=== PATIENT | female | born 1955 | race Caucasian/White ===

== ENCOUNTER 2016-11-24 13:53 | Inpatient (IN) | payer OTHER ==
[~2016-11-24] VITALS: Ht 157.5 cm; Wt 68.0 kg
[~2016-11-24 13:53] MED LIST: ADVAIR; ADVAIR DISKUS 21 DSK IH; ALBUTEROL; ALBUTEROL 3 ML3 ML IH; AMBIEN5 MG PO; APIDRA100 U/ML SUBQ; ASPIRIN81 M1 PO; ATIVAN1 M1 PO; ATROVENT 00.5 MG/3 M INH; AZITHROMYCIN500 MG PO; BACLOFEN20 MG PO; COLACE100 M1 PO; DALIRESP500 MCG PO; DUONEB 3 MG/3 ML3 ML IH; ERY-TAB250 MG PO; FLONASE; FLONASE NASAL50 MCG NS; GLUCOPHAGE1000 MG PO; GLUCOTROL5 MG PO; GUAIFEN/CODEIN120 ML PO; IPRATROPIUM 2.2.5 ML IH; LANTUS SOLOS100 U/ML SC; LANTUS SOLOS100 U/ML SUBQ; LEVAQUIN500 MG PO; LEVAQUIN750 MG PO; MOTRIN800 MG PO; NORCO 10/325 MG1 TAB PO; NORCO 5/325 MG1 TAB PO; NOVOLIN R 100 UNIT SUBQ; PERCOCET 5/3251 TAB PO; PRADAXA150 MG PO; PREDNISONE; PREDNISONE10 MG PO; PREDNISONE20 M1 PO; PREDNISONE20 MG PO; PREDNISONE5 MG PO; PREDNISONE50 MG PO; PROAIR; PROAIR HFA0.09 MG/Ac IH; PROTONIX40 MG PO; PROVENTIL HFA M18 GM INH; ROBITUSSIN/CODEI5 ML PO; SINGULAIR; SINGULAIR10 MG PO; SPIRIVA MD18 MCG/CAP INH; SPIRIVA18 MCG; SYMBICORT1 AE1 IH; VENTOLIN H0.09 MG/Ac IH; VICODIN 5/500 M1 TAB PO; ZITHROMAX TRI-500 MG PO; ZITHROMAX Z-PA250 MG PO; ZITHROMAX200 MG/5 M PO; ZITHROMAX250 MG PO; ZITHROMAX500 MG PO
--- NOTE | 2016-11-24 13:54 | NUR ---
EKG completed by EMT in triage room.
[2016-11-24 13:56] VITALS: BP 161/86
--- NOTE | 2016-11-24 14:00 | NUR ---
Patient ambulated to bed 1 with family. RN evaluating patient at bedside.
--- NOTE | 2016-11-24 14:01 | NUR ---
Dr. Duran evaluating patient at bedside.
[2016-11-24] MEDS ORDERED: ALBUTEROL SULFATE/IPRATROPIU 3 ML SOL IH ONE ×2 (14:05→14:35)
[2016-11-24] MEDS ORDERED: methylPREDNISolone SS 125 MG in WATER STERILE 2 ML IM ONE (14:05)
[2016-11-24] MEDS ORDERED: NITROGLYCERIN 0.4 MG TAB SL ONE (14:10)
--- NOTE | 2016-11-24 14:12 | NUR ---
Breathing treatment administered at bedside by respiratory therapist.
--- NOTE | 2016-11-24 14:19 | NUR ---
Dr. Duran re-evaluating patient at bedside.
--- NOTE | 2016-11-24 14:23 | NUR ---
BROUGHT IN BY DAUGHTER DUE TO SOB X1 WEEK AND CHEST PAIN AND WHEEZING STARTED LAST NIGHT , PT AAO, NOTED WITH COUGHING, PT TAKING HHN AT HOME AND REST OF HER MEDICATION, DENIES N/VD. NOTED WITH LABORED BREATHING, DAUGHTER AT BEDSIDE
--- NOTE | 2016-11-24 14:23 | NUR ---
HHN FINISHED AT THIS TIME
[2016-11-24] MEDS ORDERED: methylPREDNISolone SS 125 MG in WATER STERILE 2 ML IV ONE (14:25)
--- NOTE | 2016-11-24 14:41 | NUR ---
Secondary breathing treatment administered at bedside by respiratory therapist.
--- NOTE | 2016-11-24 14:43 | NUR ---
GETTING HHN AT THIS TIME, PT AAO, STILL WITH LABORED BREATHING
--- NOTE | 2016-11-24 15:00 | NUR ---
WILL INFORM PT WANTS TO HAVE PAIN MEDS
--- NOTE | 2016-11-24 15:00 | NUR ---
XRAY AT BEDSIDE
[2016-11-24] MEDS ORDERED: LEVOFLOXACIN 750 MG/D5W PREMIX 150 ML IV ONE (15:10)
[2016-11-24] MEDS ORDERED: MORPHINE SULFATE 2 MG/ML SYR IVP ONE (15:30)
[2016-11-24] MEDS ORDERED: NACL 0.9% 1,000 ML IV ONE (15:30)
--- NOTE | 2016-11-24 16:08 | NUR ---
REPORT GIVEN TO TELE SPOKE TO BEBETO
[2016-11-24 16:15] VITALS: BP 96/53
--- NOTE | 2016-11-24 16:15 | NUR ---
ADMITTED PATIENT FROM ER WITH CHIEF COMPLAINING OF SOB AND CHEST PAIN. PATIENT APPEARED TO BE CALM, AWAKE AND RESTING WELL. AAOX4. 98% ON O2 3L NC. VSS WITH NO FEVER NOTED. NO SIGN OF SOB OR RESPIRATORY DISTRESS NOTED. INITIAL ASSESSMENT DONE. SKIN INTACT. PATIENT STATED CHEST PAIN IS TOLERABLE AT THIS TIME. LUNG SOUNDED WHEEZING ALL LUNG DEWEY. PATIENT HAS INTERMITTENT COUGHING BUT NO SECRETION NOTED. IV 22G TO LEFT FOREARM INTACT AND INFUSING WELL WITH IVF. MRSA SWAB DONE. SCD APPLIED TO BOTH LEGS. REORIENTED PATIENT WITH CURRENT UNIT. PLAN OF CARE AND PAIN MANAGEMENT AND MEDICATION REGIMENTS DISCUSSED, PATIENT VERBALIZED UNDERSTANDING. HEAD OF BED ELEVATED FOR EASY BREATHING. CALL LIGHT WITHIN REACH. WILL CONTINUE TO MONITOR.
--- NOTE | 2016-11-24 16:19 | NUR ---
TRANSFER TO TELE AT THIS TIME, PT AAO, ASSISTED BY EMT/CHARGE NURSE
[2016-11-24] MEDS ORDERED: ONDANSETRON 4 MG/2 ML VIAL IVP PRN (16:20)
[2016-11-24] MEDS ORDERED: ACETAMINOPHEN 325 MG TAB PO PRN (16:20)
[2016-11-24] MEDS: INSULIN ASPART SLIDING SCALE 100 UNITS/ML VIAL SUBQ SCH ×3 (16:20→21:00)
[2016-11-24] MEDS ORDERED: LORazepam 1 MG TAB PO PRN (16:25)
[2016-11-24] MEDS ORDERED: guaiFENesin/CODEINE 100/10MG 5 ML UDC PO PRN (16:25)
[2016-11-24] MEDS: BLOOD GLUCOSE MONITORING 1 DEV DEV FS SCH ×2 (16:30→20:28)
[2016-11-24] MEDS ORDERED: AZITHROMYCIN 500 MG INJ VIAL IV ONE (17:40)
[2016-11-24] MEDS: AZITHROMYCIN 500 MG in DEXTROSE 5% 250 ML IV SCH (17:48)
[2016-11-24] MEDS ORDERED: methylPREDNISolone SS 40 MG in WATER STERILE 1 ML IV SCH (18:00)
--- NOTE | 2016-11-24 18:00 | NUR ---
PATIENT STATED MORPHINE DOES NOT WORK FOR HER PAIN AND REQUESTED SOMETHING STRONGER. WILL NOTIFY
--- NOTE | 2016-11-24 18:47 | NUR ---
PATIENT REQUESTED PAIN MEDICATION FOR BACK PAIN 04/29. TOLD PATIENT MORPHINE WAS GIVEN IN ER AT 1536, NEXT DOSE WILL BE AT 1936. ALSO TOLD PATIENT PAIN MEDICATION IVP CANNOT BE GIVEN IF BLOOD SYSTOLIC PRESSURE BELOW 110. PATIENT VERBALIZED UNDERSTANDING. ALSO RECHECKED PATIENT'S BP OF 99/60.
--- NOTE | 2016-11-24 18:53 | NUR ---
SPOKE TO DR TORRES ON THE PHONE AND LET HER KNOW PER PATIENT, MORPHINE IVP DOES NOT HELP FOR HER BACK AND CHEST PAIN. RECEIVED TELEPHONE ORDERS FOR NORCO 5/325MG Q4H FOR MODERATE AND 2 TABS OF 5/325MG Q4H FOR SEVERE PAIN AND ALSO D/C ALL MORPHINE ORDERS. WILL FOLLOW THROUGH MD ORDERS.
--- NOTE | 2016-11-24 19:19 | NUR ---
ENDORSED PATIENT'S CURRENT PLAN OF CARE TO NIGHT NURSE JOSUE RN, PATIENT RESTING IN BED WITH NO SIGN OF DISTRESS NOTED.
--- NOTE | 2016-11-24 19:20 | NUR ---
RECEIVED REPORT FROM AM NURSE. PT IS AAOX4, HAS COMPLAINED OF PAIN, WILL ADMINISTER PAIN MEDICATION PER MD ORDERED. ON NASAL CANNULA AT 2 LPM, NO S/S OF RESPIRATORY DISTRESS/DISCOMFORT NOTED. IV SITE IS PATENT AND INTACT. SKIN IS INTACT. PLAN OF CARE DISCUSSED, VERBALIZED UNDERSTANDING. SAFETY MEASURES CHECKED, CALL LIGHT WITHIN REACH. WILL CONTINUE TO MONITOR.
[2016-11-24 19:44] VITALS: BP 111/68
[2016-11-24] MEDS: MORPHINE SULFATE 4 MG/ML SYR IVP PRN (19:47)
--- NOTE | 2016-11-24 19:47 | NUR ---
PT COMPLAINED OF PAIN. ADMINISTERED PAIN MEDICATION PER MD ORDERED.
[2016-11-24] MEDS: IPRATROPIUM 0.02% 0.5 MG/2.5 ML NEBU INH SCH (20:08)
[2016-11-24] MEDS: ALBUTEROL 0.083% 2.5 MG/3 ML NEBU INH SCH (20:08)
[2016-11-24] MEDS ORDERED: PANTOPRAZOLE 40 MG TABEC PO SCH (21:00)
[2016-11-24] MEDS: DABIGATRAN ETEXILATE MESYLAT 75 MG CAP PO SCH (21:00)
[2016-11-24] MEDS ORDERED: ZOLPIDEM 5 MG TAB PO PRN (21:00)
--- NOTE | 2016-11-24 21:00 | NUR ---
PRADAXA NOT GIVEN. DRUG NOT AVAILABLE. CHARGE NURSE NOTIFIED.
[2016-11-25] VITALS: BP 111/63
[2016-11-25] MEDS: MORPHINE SULFATE 4 MG/ML SYR IVP PRN ×6 (00:08→21:08)
--- NOTE | 2016-11-25 00:08 | NUR ---
PT COMPLAINED OF PAIN, MEDICATED PAIN MED ORDERED. PRESENCE OF COUGH NOTED, NON-PRODUCTIVE, PT IS IN DISTRESS. CALLED RT FOR BREATHING TREATMENT.
[2016-11-25] MEDS: ALBUTEROL 0.083% 2.5 MG/3 ML NEBU INH SCH ×2 (00:23→07:22)
[2016-11-25] MEDS: IPRATROPIUM 0.02% 0.5 MG/2.5 ML NEBU INH SCH ×2 (00:23→07:22)
--- NOTE | 2016-11-25 00:55 | NUR ---
BREATHING TREATMENT DONE. PT IS STILL COUGHING A LOT. RT SUGGESTED TO FOLLOW-UP CALLED DR. TORRES WAITING FOR CALLBACK.
--- NOTE | 2016-11-25 00:57 | NUR ---
RECEIVED A CALLBACK FROM DR TORRES. UPDATED PT'S CONDITION. NEW ORDER MADE.
[2016-11-25] MEDS ORDERED: guaiFENesin/CODEINE 100/10MG 5 ML UDC PO PRN ×2 (01:15→02:05)
[2016-11-25 04:00] VITALS: BP 142/70
--- NOTE | 2016-11-25 04:25 | NUR ---
PT IS AWAKE. PRESENCE OF NON-PRODUCTIVE COUGH NOTED. COMPLAINED OF PAIN, MEDICATED PER MD ORDERED.
[2016-11-25] MEDS: guaiFENesin/CODEINE 100/10MG 5 ML UDC PO PRN ×3 (06:10→16:00)
[2016-11-25] MEDS: BLOOD GLUCOSE MONITORING 1 DEV DEV FS SCH ×4 (06:10→20:50)
--- NOTE | 2016-11-25 06:12 | NUR ---
PRESENCE OF NON PRODUCTIVE COUGH NOTED. ADMINISTERED PRN MEDICATION FOR COUGH PER MD ORDERED.
--- NOTE | 2016-11-25 07:10 | NUR ---
ENDORSED REPORT TO AM NURSE. PT IS IN STABLE CONDITION.
--- NOTE | 2016-11-25 07:11 | NUR ---
RECEIVED PT FROM ADELE SALAS AWAKE, SITTING ON BED. PT COUGHING BUT NO S/S OF DISTRESS. WITH IV ACCESS ON LEFT FOREARM 22G PATENT AND INTACT. SKIN IS INTACT. DISCUSSED PLAN OF CARE, PT VERBALIZED UNDERSTANDING. CALL LIGHT WITHIN REACH, WILL CONTINUE TO MONITOR.
[2016-11-25] MEDS: INSULIN ASPART SLIDING SCALE 100 UNITS/ML VIAL SUBQ SCH ×4 (07:30→20:34)
--- NOTE | 2016-11-25 07:44 | NUR ---
SPOKE TO DR TORRES REGARDING BREATHING TREATMENT. RT INFORMED.
--- NOTE | 2016-11-25 07:44 | NUR ---
RN. PARRA SPOKE WITH AND CHANGED BREATHING TX FROM ALBUTEROL 2.MG AND ATROVENT0.5MG Q6 TO DUONEB 3ML TO Q4 PLUS Q2 PRN FOR SOB
[2016-11-25 08:00] VITALS: BP 119/63
[2016-11-25] MEDS ORDERED: PANTOPRAZOLE 40 MG TABEC PO SCH ×2 (08:52→08:53)
[2016-11-25] MEDS: ASPIRIN 81 MG TAB.CHEW PO SCH (08:53)
[2016-11-25] MEDS: ENOXAPARIN 40 MG/0.4 ML SYR SUBQ SCH (09:01)
[2016-11-25] MEDS: DABIGATRAN ETEXILATE MESYLAT 75 MG CAP PO SCH ×2 (09:02→20:33)
--- NOTE | 2016-11-25 09:02 | NUR ---
DUE MEDS GIVEN, PT TOLERATED WELL. NO S/S OF DISTRESS. CALL LIGHT WITHIN REACH, WILL CONTINUE TO MONITOR.
[2016-11-25] MEDS: ALBUTEROL SULFATE/IPRATROPIU 3 ML SOL IH SCH ×4 (10:38→22:40)
--- NOTE | 2016-11-25 11:10 | NUR ---
PT SITTING ON BED WATCHING TV, STILL COUGHING INTERMITTENTLY BUT NO SIGN OF DISTRESS. ALL NEEDS MET AT THIS TIME. CALL LIGHT WITHIN REACH, WILL CONTINUE TO MONITOR.
[2016-11-25] MEDS: methylPREDNISolone SS 40 MG/ML VIAL IVP SCH ×3 (11:57→23:31)
[2016-11-25 12:00] VITALS: BP 121/94
--- NOTE | 2016-11-25 12:58 | NUR ---
PT COMPLAINED OF PAIN, MORPHINE GIVEN ORDERED. PT COUGHING AND HAS SHORTNESS OF BREATH. RT CALLED TO BEDSIDE FOR PRN DUONEB.
[2016-11-25] MEDS: ALBUTEROL SULFATE/IPRATROPIU 3 ML SOL IH PRN ×2 (13:07→19:38)
--- NOTE | 2016-11-25 13:53 | NUR ---
PT RESTING COMFORTABLE ON BED WHILE WATCHING TV. ALL NEEDS MET AT THIS TIME, CALL LIGHT WITHIN REACH, WILL CONTINUE TO MONITOR.
--- NOTE | 2016-11-25 15:25 | NUR ---
DR TORRES AT THE NURSES' STATION
[2016-11-25] MEDS: AZITHROMYCIN 500 MG in DEXTROSE 5% 250 ML IV SCH (15:59)
[2016-11-25 16:00] VITALS: BP 121/75
[2016-11-25] MEDS: PANTOPRAZOLE 40 MG TABEC PO SCH (16:00)
--- NOTE | 2016-11-25 16:00 | NUR ---
DUE MED GIVEN, PT TOLERATED WELL. PT FOR CT CHEST WITH CONTRAST. INFORMED CONSENT SIGNED. IV ACCESS AT LEFT FOREARM 20G INFUSING FLUIDS WELL. CALL LIGHT WITHIN REACH, WILL CONTINUE TO MONITOR.
[2016-11-25] MEDS: NACL 0.9% 500 ML IV SCH ×2 (16:09→20:40)
--- NOTE | 2016-11-25 18:20 | NUR ---
PT AWAKE SITTING ON BED WITH DAUGHTER AT BEDSIDE AND WATCHING TV. NO DISTRESS NOTED. ALL NEEDS MET AT THIS TIME, WILL CONTINUE TO MONITOR.
--- NOTE | 2016-11-25 18:38 | NUR ---
PT LEFT UNIT FOR CT ON A WHEELCHAIR IN STABLE CONDITION
--- NOTE | 2016-11-25 19:05 | NUR ---
PT BACK TO UNIT FROM CT IN STABLE CONDITION
--- NOTE | 2016-11-25 19:21 | NUR ---
ENDORSED PT TO ADELE SALAS IN STABLE CONDITION FOR CONTINUITY OF CARE.
--- NOTE | 2016-11-25 19:21 | NUR ---
RECEIVED REPORT FROM AM NURSE. PT IS AAOX4, CURRENTLY EATING HER DINNER, HAS NO COMPLAIN OF PAIN. NO S/S OF RESPIRATORY DISTRESS/DISCOMFORT NOTED. IV SITE IS PATENT AND INTACT. PLAN OF CARE DISCUSSED, VERBALIZED UNDERSTANDING. SAFETY MEASURES CHECKED, CALL LIGHT WITHIN REACH. WILL CONTINUE TO MONITOR.
--- NOTE | 2016-11-25 19:34 | NUR ---
PT IS COUGHING OF NON PRODUCTIVE. CALLED RT FOR HER BREATHING TREATMENT.
[2016-11-25 20:00] VITALS: BP 121/68
[2016-11-25] MEDS ORDERED: INSULIN DETEMIR 100 UNITS/ML 10 ML VIAL SUBQ SCH (21:00)
--- NOTE | 2016-11-25 21:15 | NUR ---
PT COMPLAINED OF PAIN 05/30. ADMINISTERED PAIN MEDS PER MD ORDERED.
--- NOTE | 2016-11-25 22:32 | NUR ---
PT IS AWAKE, WATCHING TV. NOT IN DISTRESS. NO PRESENCE OF COUGH NOTED.
[2016-11-25] MEDS: ACETYLCYSTEINE 10% (100 MG/ML) 100 MG/ML VIAL INH SCH (22:49)
--- NOTE | 2016-11-25 22:50 | NUR ---
MUCOMYST 10% NOT ADMINISTERED BECAUSE MEDICATION NOT AVAILABLE IN [facility] OR PATIENTS BIN IN MEDICATION ROOM
[2016-11-26] VITALS (7 sets, daily range): BP systolic 106–134; BP diastolic 55–78
--- NOTE | 2016-11-26 | NUR ---
VS CHECKED AND STABLE. PT IS NOT COUGHING AND NO S/S OF RESPIRATORY DISTRESS/DISCOMFORT NOTED.
[2016-11-26] MEDS: MORPHINE SULFATE 4 MG/ML SYR IVP PRN ×5 (01:15→18:26)
[2016-11-26] MEDS: guaiFENesin/CODEINE 100/10MG 5 ML UDC PO PRN ×2 (01:15→20:48)
--- NOTE | 2016-11-26 01:15 | NUR ---
PRESENCE OF COUGH NOTED, NON-PRODUCTIVE. ADMINISTERED PRN ROBITUSSIN PER MD ORDERED. PT HAS COMPLAINED OF PAIN OF 8/10, ADMINISTERED PAIN MEDS PER MD ORDERED.
[2016-11-26] MEDS: NACL 0.9% 500 ML IV SCH ×5 (01:40→21:40)
[2016-11-26] MEDS: ALBUTEROL SULFATE/IPRATROPIU 3 ML SOL IH SCH ×6 (03:18→23:39)
[2016-11-26] MEDS: ACETYLCYSTEINE 10% (100 MG/ML) 100 MG/ML VIAL INH SCH ×6 (03:18→23:39)
--- NOTE | 2016-11-26 04:17 | NUR ---
PT SLEEPING IN BED. NO S/S OF RESPIRATORY DISTRESS/DISCOMFORT. SAFETY MEASURES CHECKED, CALL LIGHT WITHIN REACH
[2016-11-26] MEDS: methylPREDNISolone SS 40 MG/ML VIAL IVP SCH ×3 (05:24→18:22)
--- NOTE | 2016-11-26 05:24 | NUR ---
PT COMPLAINED OF PAIN. VS CHECKED AND ADMINISTERED PAIN MEDICATION PER MD ORDERED.
[2016-11-26] MEDS: BLOOD GLUCOSE MONITORING 1 DEV DEV FS SCH ×4 (05:35→20:44)
[2016-11-26] MEDS: INSULIN ASPART SLIDING SCALE 100 UNITS/ML VIAL SUBQ SCH ×4 (05:44→21:06)
[2016-11-26] MEDS: BUDESONIDE 0.5 MG/2 ML NEBU INH SCH ×2 (07:02→19:46)
[2016-11-26] MEDS: PANTOPRAZOLE 40 MG TABEC PO SCH ×2 (07:07→16:27)
--- NOTE | 2016-11-26 07:09 | NUR ---
ASSUMED CONTINUITY OF CARE. NO SIGNS AND SYMPTOMS OF ACUTE DISTRESS NOTED. INITIAL ASSESSMENT DONE. EXPLAINED DIAGNOSIS, PLAN OF CARE, PAIN MANAGEMENT TEACHING, USE OF CALL LIGHT/BED/TV/BATHROOM. VERBALIZED UNDERSTANDING. CALL LIGHT WITHIN REACH.
--- NOTE | 2016-11-26 07:10 | NUR ---
ENDORSED REPORT TO AM NURSE. PT IS IN STABLE CONDITION.
--- NOTE | 2016-11-26 08:00 | NUR ---
Patient's Plan of Care was discussed and reviewed with MANAGER CARE: CLIFFORD LARIOS
[2016-11-26] MEDS: DABIGATRAN ETEXILATE MESYLAT 75 MG CAP PO SCH ×2 (08:47→20:46)
[2016-11-26] MEDS: ASPIRIN 81 MG TAB.CHEW PO SCH (08:47)
[2016-11-26] MEDS: ENOXAPARIN 40 MG/0.4 ML SYR SUBQ SCH (08:48)
--- NOTE | 2016-11-26 10:03 | NUR ---
PATIENT HAS BEEN SCREENED AND CATEGORIZED HIGH NUTRITION RISK. PATIENT WILL BE SEEN WITHIN 1-2 DAYS OF ADMISSION. 11/25/16-11/26/[address]
--- NOTE | 2016-11-26 12:00 | NUR ---
VITAL SIGNS STABLE. NO C/O PAIN. WILL MONITOR.
--- NOTE | 2016-11-26 14:53 | NUR ---
11/26/16 RD INITIAL ASSESSMENT COMPLETED PLEASE REFER TO NUTRITION ASSESSMENT UNDER CARE ACTIVITY FOR ESTIMATED NUTRITIONAL NEEDS. RD RECOMMENDATIONS: 1. CONTINUE CCHO 60 GM DIET TOLERATED PER MD --PT MEETING 100% OF ESTIMATED KCAL AND PROTEIN NEEDS. 2. RD PROVIDED PT WITH DM DIET EDUCATION 3. RD WILL F/U 5-7 DAYS; LOW RISK. MARIKA AMEZQUITA RD
[2016-11-26] MEDS: AZITHROMYCIN 500 MG in DEXTROSE 5% 250 ML IV SCH (16:04)
--- NOTE | 2016-11-26 16:39 | NUR ---
CM NOTE PER [facility] CM OMKAR # [phone], REVIEWS SHOULD GO TO [facility] AND SEND ONLY TO ALLIED PHYSICIANS FOR ANY DISCHARGE NEEDS. INITIAL REVIEW SENT TO [facility] FAX# [phone] PH# OMKAR [phone]
--- NOTE | 2016-11-26 19:05 | NUR ---
BEDSIDE REPORT GIVEN TO LINDA BAKER -ADELE. IN STABLE CONDITION.
--- NOTE | 2016-11-26 19:10 | NUR ---
RECEIVED REPORT FROM DAY OFFSET PRESSMAN, PATIENT IS AAOX4 RESTING IN BED, PATIENT HAS O2 VIA NC AT 2L WITH NO SOB NOTED AT THIS TIME, PATIENT HAS IV TO LFA 20G, PATENT, INTACT AND ASYMPTOMATIC. SKIN IS INTACT, PATIENT HAS COUGH NOTED INTERMITTENT. DISCUSSED PLAN OF CARE WITH PATIENT, PATIENT VERBALIZED UNDERSTANDING. CALL LIGHT WITHIN REACH. WILL CONTINUE TO MONITOR.
--- NOTE | 2016-11-26 20:57 | NUR ---
PM MEDS ADMINISTERED PER MD ORDER, PATIENT TOLERATED WELL, CALL LIGHT WITHIN REACH. WILL CONTINUE TO MONITOR.
[2016-11-26] MEDS ORDERED: INSULIN DETEMIR 100 UNITS/ML 10 ML VIAL SUBQ SCH (21:00)
[2016-11-26] MEDS: MORPHINE SULFATE 2 MG/ML SYR IVP PRN (22:44)
--- NOTE | 2016-11-26 22:45 | NUR ---
ADMINISTERED PAIN MED PER MD ORDER. PATIENT STATES SHE HAS PAIN IN HER LEG AND ARM. RECHECKED PTS BLOOD SUGAR PER PATIENT REQUEST 358. NO SOB OR SIGN OF DISTRESS NOTED, CALL LIGHT WITHIN REACH. WILL CONTINUE TO MONITOR.
[2016-11-27] VITALS: BP 114/68
[2016-11-27] MEDS: methylPREDNISolone SS 40 MG/ML VIAL IVP SCH ×5 (00:04→23:58)
--- NOTE | 2016-11-27 00:15 | NUR ---
PATIENT RESTING IN BED WATCHING TV, VITAL SIGNS STABLE, NO SOB OR SIGN OF DISTRESS, CALL LIGHT WITHIN REACH. WILL CONTINUE TO MONITOR.
--- NOTE | 2016-11-27 02:00 | NUR ---
PATIENT SLEEPING, NO SOB OR SIGN OF DISTRESS, CALL LIGHT WITHIN REACH. WILL CONTINUE TO MONITOR.
[2016-11-27] MEDS: NACL 0.9% 500 ML IV SCH ×3 (02:40→12:40)
[2016-11-27] MEDS: ACETYLCYSTEINE 10% (100 MG/ML) 100 MG/ML VIAL INH SCH ×5 (03:55→20:49)
[2016-11-27] MEDS: ALBUTEROL SULFATE/IPRATROPIU 3 ML SOL IH SCH ×5 (03:55→20:49)
[2016-11-27 04:00] VITALS: BP 116/63
[2016-11-27] MEDS: MORPHINE SULFATE 2 MG/ML SYR IVP PRN (04:02)
--- NOTE | 2016-11-27 04:10 | NUR ---
VITAL SIGNS STABLE, NO SOB OR SIGN OF DISTRESS NOTED, ADMINISTERED PAIN MED PER MD ORDER, CALL LIGHT WITHIN REACH. WILL CONTINUE TO MONITOR.
[2016-11-27] MEDS: PANTOPRAZOLE 40 MG TABEC PO SCH ×2 (06:35→16:11)
[2016-11-27] MEDS: INSULIN ASPART SLIDING SCALE 100 UNITS/ML VIAL SUBQ SCH ×4 (06:41→20:25)
[2016-11-27] MEDS: BLOOD GLUCOSE MONITORING 1 DEV DEV FS SCH ×4 (06:59→20:18)
[2016-11-27] MEDS: BUDESONIDE 0.5 MG/2 ML NEBU INH SCH ×2 (07:04→20:51)
--- NOTE | 2016-11-27 07:05 | NUR ---
ENDORSED PATIENT TO DAY PRODUCTION MANUFACTURING WORKER AT BEDSIDE, PATIENT IN STABLE CONDITION.
--- NOTE | 2016-11-27 07:05 | NUR ---
PATIENT CURRENT PLAN OF CARE DISCUSSED AND REVIEW WITH NURSE JULIAN MACKENZIE.
--- NOTE | 2016-11-27 07:05 | NUR ---
ASSUMED CONTINUITY OF CARE. NO SIGNS AND SYMPTOMS OF ACUTE DISTRESS NOTED. INITIAL ASSESSMENT DONE. KEEP COMFORTABLE ON BED. EXPLAINED DIAGNOSIS, PLAN OF CARE, PAIN MANAGEMENT TEACHING, USE OF CALL LIGHT/BED/TV/BATHROOM. VERBALIZED UNDERSTANDING. CALL LIGHT WITHIN REACH.
[2016-11-27 08:01] VITALS: BP 129/76
[2016-11-27] MEDS: MORPHINE SULFATE 4 MG/ML SYR IVP PRN ×4 (08:07→20:26)
[2016-11-27] MEDS: ASPIRIN 81 MG TAB.CHEW PO SCH (09:28)
[2016-11-27] MEDS: DABIGATRAN ETEXILATE MESYLAT 75 MG CAP PO SCH ×2 (09:30→20:22)
--- NOTE | 2016-11-27 11:15 | NUR ---
TAKE OFF FROM O2 AT 2L/MIN VIA NC. PUT ON ROOM AIR TO MONITOR O2 SATURATION. TOLERATED WELL. NO DISTRESS NOTED. WILL MONITOR.
[2016-11-27 12:00] VITALS: BP 140/79
--- NOTE | 2016-11-27 12:00 | NUR ---
CALLED HVAC OPERATIONS TECHNICIAN ROSA AND INFORMED THAT PT. O2 SATURATION ON ROOM AIR FOR 45 MINUTES OBSERVATION WAS 86% THE LOWEST AND 91% THE HIGHEST. NO C/O SOB. PUT BACK ON O2 AT 2L/MIN VIA NC.
--- NOTE | 2016-11-27 12:06 | NUR ---
PAGED ESTRADA CARROLL AND SPOKE TO TABITHA REGARDING O2 ORDER PER INSPECTOR POISING -AZUL REQUEST.
--- NOTE | 2016-11-27 12:21 | NUR ---
DR. TORRES CALLED BACK, INFORMED THAT PT. WAS TAKE OFF FROM O2 AT 2L/MIN AND PUT ON ROOM AIR FOR 02 SATURATION OBSERVATION AND O2 SAT WAS 86% TO 91% AND SENIOR CUSTOMER SERVICE REPRESENTATIVE -AZUL ASKED FOR ORDER. GOT TELEPHONE ORDER, READ BACK AND VERIFIED. INFORMED CHARGE NURSE DIXIE HODGSON -ADELE
--- NOTE | 2016-11-27 12:56 | NUR ---
CM NOTE REVIEW SENT TO [facility] FAX# [phone] PH# OMKAR [phone]
--- NOTE | 2016-11-27 13:17 | NUR ---
WENT TO BATHROOM WITHOUT ASSISTANCE. TOLERATED WELL. NO SOB, NOTED.
--- NOTE | 2016-11-27 14:34 | NUR ---
TRISH PAULSON SENT ORDER FOR HOME OXYGEN TO [facility]IED [facility]YSICIAN FAX# [phone]. SPOKE TO TRISH CHAIDEZ OF [facility]IED PH[facility]ICIANS PH# [phone] WHO SAID TO USE [facility] PH# [phone] FOR HOME OXYGEN AND TO HAVE [facility] TO CALL HER FOR THE AUTH# IF THEY NEED IT. SALVADOR CARLISLE.
[2016-11-27] MEDS: guaiFENesin/CODEINE 100/10MG 5 ML UDC PO PRN ×2 (14:43→20:19)
--- NOTE | 2016-11-27 14:47 | NUR ---
ESTRADA CARROLL CAME, SEEN PT., CHECKED PT. CHART, AND PUT NEW ORDERS ON [employer].
[2016-11-27] MEDS ORDERED: NACL 0.9% 1,000 ML IV SCH (14:50)
--- NOTE | 2016-11-27 14:50 | NUR ---
SS NOTE: PT INFORMATION SENT TO [facility], RECEIVED FAX CONFIRMATION MESSAGE LEFT FOR MICHAEL AT [facility] ([phone]) TO FOLLOW UP REGARDING PT'S REFERRAL FOR HOME OXYGEN
--- NOTE | 2016-11-27 15:09 | NUR ---
SS NOTE: I SPOKE WITH MICHAEL AT [facility] ([phone]). HE STATED THAT HE RECEIVED PT'S INFORMATION AND HE WILL WORK ON PROCESSING PT'S OXYGEN ORDERS TO ARRANGE HOME OXYGEN.
[2016-11-27 16:00] VITALS: BP 117/73
[2016-11-27] MEDS: AZITHROMYCIN 500 MG in DEXTROSE 5% 250 ML IV SCH (16:04)
--- NOTE | 2016-11-27 17:33 | NUR ---
ADMINISTERED SOLUMEDROL ORDERED. PT TOLERATED WELL. FAMILY PRESENT AT BEDSIDE.
--- NOTE | 2016-11-27 19:05 | NUR ---
BEDSIDE REPORT GIVEN TO LINDA PLATA. IVF INFUSING AT TKO. IV ACCESS INTACT AND PATENT. IN STABLE CONDITION.
--- NOTE | 2016-11-27 19:15 | NUR ---
RECEIVED REPORT FROM DAY SHIFT WATCH AND CLOCK REPAIR CLERK, PATIENT IS AAOX4, RESTING IN BED, PATIENT IS ON O2 @2L NC, NO SOB OR SIGN OF DISTRESS, PATIENT HAS IV TO LFA 20G, PATENT INTACT AND ASYMPTOMATIC. PATIENT'S SKIN IS INTACT. PATIENT ON TELE MONITOR. DISCUSSED PLAN OF CARE WITH PATIENT, PATIENT VERBALIZED UNDERSTANDING. SAFETY MEASURES CHECKED, CALL LIGHT WITHIN REACH. WILL CONTINUE TO MONITOR.
--- NOTE | 2016-11-27 19:35 | NUR ---
PATIENT STATED LBM WAS 2/4, PAGED QASHE SPIRAL WINDER FOR MD TORRES, TO REQUEST STOOL SOFTENER, WILL FOLLOW UP WITH ORDERS.
[2016-11-27 20:00] VITALS: BP 131/76
[2016-11-27] MEDS: POLYETHYLENE GLYCOL 17 GM/PKT PO PRN (20:25)
--- NOTE | 2016-11-27 20:36 | NUR ---
PM MEDS GIVEN PATIENT TOLERATED WELL, BLOOD SUGAR CHECK 361, ADMINISTERED INSULIN PER MD ORDER, ADMINISTERED PAIN MED PER MD ORDER, CALL LIGHT WITHIN REACH. WILL CONTINUE TO MONITOR.
[2016-11-27] MEDS ORDERED: INSULIN DETEMIR 100 UNITS/ML 10 ML VIAL SUBQ SCH (21:00)
--- NOTE | 2016-11-27 22:22 | NUR ---
PATIENT SLEEPING, NO SOB OR SIGN OF DISTRESS, CALL LIGHT WITHIN REACH. WILL CONTINUE TO MONITOR.
[2016-11-28] VITALS: BP 136/88
[2016-11-28] MEDS: ACETYLCYSTEINE 10% (100 MG/ML) 100 MG/ML VIAL INH SCH ×4 (00:08→07:18)
[2016-11-28] MEDS: ALBUTEROL SULFATE/IPRATROPIU 3 ML SOL IH SCH ×4 (00:08→11:34)
--- NOTE | 2016-11-28 00:18 | NUR ---
ADMINISTERED DUE SOLUMEDROL, PATIENT TOLERATED WELL, PATIENT RECEIVING BREATHING TX. VITAL SIGNS STABLE, PATIENT ASKING FOR PAIN MED AND COUGH MEDICINE, WILL ADMINISTER AT DUE TIME. CALL LIGHT WITHIN REACH. WILL CONTINUE TO MONITOR.
[2016-11-28] MEDS: guaiFENesin/CODEINE 100/10MG 5 ML UDC PO PRN ×4 (00:26→12:50)
[2016-11-28] MEDS: MORPHINE SULFATE 2 MG/ML SYR IVP PRN ×4 (00:26→12:50)
--- NOTE | 2016-11-28 02:20 | NUR ---
PATIENT SLEEPING, NO SOB OR SIGN OF DISTRESS, CALL LIGHT WITHIN REACH. WILL CONTINUE TO MONITOR.
[2016-11-28 04:00] VITALS: BP 127/88
--- NOTE | 2016-11-28 04:14 | NUR ---
VITAL SIGNS STABLE, PATIENT TOOK OXYGEN OFF, O2 SAT AT 91%, INSTRUCTED PATIENT NEED TO REAPPLY, PATIENT STATED SHE WANTS IT OFF FOR A BIT AND WILL PUT IT BACK ON AND DOES NOT FEEL SHORT OF BREATH. CALL LIGHT WITHIN REACH. WILL CONTINUE TO MONITOR.
[2016-11-28] MEDS: methylPREDNISolone SS 40 MG/ML VIAL IVP SCH ×2 (06:31→11:09)
[2016-11-28] MEDS: PANTOPRAZOLE 40 MG TABEC PO SCH (06:31)
[2016-11-28] MEDS: INSULIN ASPART SLIDING SCALE 100 UNITS/ML VIAL SUBQ SCH ×2 (06:32→12:24)
[2016-11-28] MEDS: BLOOD GLUCOSE MONITORING 1 DEV DEV FS SCH ×2 (06:34→11:30)
[2016-11-28] MEDS: BUDESONIDE 0.5 MG/2 ML NEBU INH SCH (07:17)
--- NOTE | 2016-11-28 07:35 | NUR ---
ENDORSED PATIENT TO DAY SHIFT RN AT BEDSIDE, PATIENT IN STABLE CONDITION.
--- NOTE | 2016-11-28 07:36 | NUR ---
RECEIVED REPORT FROM PICU NURSE RN. PT IS AWAKE ON NEBULIZER. PT IS A/O X 4, COOPERATIVE, AMBULATORY. LFA 20G IV INTACT AND PATENT. 02 2L NC. SKIN INTACT. NO S/S OF ACUTE CARDIAC/RESPIRATORY DISTRESS OR DISCOMFORT. SAFETY MEASURES IN PLACE, CALL LIGHT WITHIN REACH. WILL CONTINUE PLAN OF CARE AND CONTINUE TO MONITOR.
[2016-11-28 08:00] VITALS: BP 125/77
[2016-11-28] MEDS: ASPIRIN 81 MG TAB.CHEW PO SCH (08:40)
[2016-11-28] MEDS: DABIGATRAN ETEXILATE MESYLAT 75 MG CAP PO SCH (08:42)
--- NOTE | 2016-11-28 09:17 | NUR ---
PT AWAKE, WATCHING TV. PT TOLERATED AM MEDS WELL. PT COMPLAINED OF PAIN FROM EXCESSIVE COUGHING. MEDICATED WITH ROBITUSSIN AND MORPHINE. PT STATES REDUCED PAIN AND COUGHING. NO S/S OF ACUTE DISTRESS OR DISCOMFORT. CALL LIGHT WITHIN REACH. WILL CONTINUE TO MONITOR.
--- NOTE | 2016-11-28 09:30 | NUR ---
PT AMBULATED ON THE FLOOR WITHOUT SUPPLEMENTAL OXYGEN AND WITH PULSE OXIMETER. PT BEGAN AT 88% SATURATION AT THE START OF AMBULATION AND AT THE END OF AMBULATION 85% WITH MINIMAL SOB AND COUGHING. PT WAS PLACED BACK ON O2 2L NC, SITTING IN BED, INSTRUCTED TO TAKE DEEP BREATH THROUGH THE NOSE AND OUT THROUGH THE MOUTH, PT VERBALIZED UNDERSTANDING. NO S/S OF ACUTE DISTRESS OR DISCOMFORT. CALL LIGHT WITHIN REACH, WILL CONTINUE TO MONITOR.
--- NOTE | 2016-11-28 09:45 | NUR ---
PT AMBULATED WITH SUPPLEMENTAL OXYGEN 2L NC AND PULSE OXIMETER. PT BEGAN AT 90% WHEN AMBULATING, AND AT THE END OF AMBULATION PT WOULD FLUCTUATE BETWEEN 89-90%. NO S/S OF SOB OR COUGHING DURING AMBULATION WITH SUPPLEMENTAL OXYGEN AT 2L NC. PT BACK IN BED, NO S/S OF ACUTE DISTRESS OR DISCOMFORT, CALL LIGHT WITHIN REACH. WILL CONTINUE TO MONITOR.
--- NOTE | 2016-11-28 09:58 | NUR ---
SS NOTE: MESSAGE LEFT FOR MICHAEL AT [facility] ([phone]) TO FOLLOW UP ON THE ETA FOR PT'S PORTABLE OXYGEN AND HOME CONCENTRATOR DELIVERY
--- NOTE | 2016-11-28 10:11 | NUR ---
SS NOTE: I SPOKE WITH MICHAEL FROM [facility] ([phone]) AND HE STATED THAT THE ETA FOR PT'S BEDSIDE DELIVERY OF PT'S PORTABLE OXYGEN IS BETWEEN 1200 AND 1400 TODAY.
[2016-11-28] MEDS: POLYETHYLENE GLYCOL 17 GM/PKT PO PRN (11:12)
--- NOTE | 2016-11-28 11:15 | NUR ---
CM NOTE CONCURRENT REVIEW SENT TO [facility] FAX# [phone] ATTN: OMKAR # [phone]
[2016-11-28 12:00] VITALS: BP 126/70
--- NOTE | 2016-11-28 13:01 | NUR ---
PT AWAKE, NO S/S OF ACUTE DISTRESS. 1 OXYGEN TANK FOR HOME OXYGEN DELIVERED AND PRESENT AT BEDSIDE, PT STATES THE REST OF THE OXYGEN WAS DELIVERED TO HOME ALREADY. DR TORRES SAW PT TODAY AND DISCUSSED THE PLAN OF CARE. CALL LIGHT WITHIN REACH. WILL CONTINUE TO MONITOR.
--- NOTE | 2016-11-28 13:55 | NUR ---
DISCHARGE INSTRUCTIONS PROVIDED, PT VERBALIZED UNDERSTANDING. PT SIGNED DISCHARGE PAPERWORK, PROVIDED A COPY. PT CHANGED INTO HER CLOTHES. ARM BANDS REMOVED. IV REMOVED AND INTACT. NO S/S OF ACUTE DISTRESS OR DISCOMFORT. PT IN STABLE CONDITION. ESCORTED PT TO FRONT LOBBY TO BE PICKED UP BY DAUGHTER.
[2017-03-13] MEDS ORDERED: MEDROL4 MG PO (13:50)
[2017-03-13] MEDS ORDERED: ZITHROMAX Z-PA250 MG PO (13:51)
== END 2016-11-28 13:58 | disposition home or self-care (01) | DRG 140 ==
LOC: MED 13:53 → MTU 16:14
PROVIDERS: ADMIT Hospitalist; ATTEND Hospitalist
DX: J44.1 Chronic obstructive pulmonary disease with (acute) exacerbation (principal); Z99.81 Dependence on supplemental oxygen; I10 Essential (primary) hypertension; I48.91 Unspecified atrial fibrillation; J45.909 Unspecified asthma, uncomplicated; F17.200 Nicotine dependence, unspecified, uncomplicated; E11.9 Type 2 diabetes mellitus without complications; K21.9 Gastro-esophageal reflux disease without esophagitis; Z86.718 Personal history of other venous thrombosis and embolism; Z86.711 Personal history of pulmonary embolism; Z88.1 Allergy status to other antibiotic agents; Z88.0 Allergy status to penicillin

== ENCOUNTER 2017-03-11 16:47 | Inpatient (IN) | payer OTHER ==
[~2017-03-11] VITALS: Ht 157.5 cm; Wt 71.2 kg
[~2017-03-11 16:47] MED LIST changes: -ADVAIR; -ADVAIR DISKUS 21 DSK IH; +ALBU0.0912 IH; +ALBU3SOL IH; -ALBUTEROL; -ALBUTEROL 3 ML3 ML IH; -AMBIEN5 MG PO; -APIDRA100 U/ML SUBQ; +ASPI81CT89 PO; -ASPIRIN81 M1 PO; -ATIVAN1 M1 PO; +ATRN INH; -ATROVENT 00.5 MG/3 M INH; -AZITHROMYCIN500 MG PO; -BACLOFEN20 MG PO; -COLACE100 M1 PO; +DABI150C PO; -DALIRESP500 MCG PO; -DUONEB 3 MG/3 ML3 ML IH; -ERY-TAB250 MG PO; -FLONASE; -FLONASE NASAL50 MCG NS; +FLUT1DSK2 IH; -GLUCOPHAGE1000 MG PO; -GLUCOTROL5 MG PO; -GUAIFEN/CODEIN120 ML PO; +INSU100S22 SUBQ; -IPRATROPIUM 2.2.5 ML IH; -LANTUS SOLOS100 U/ML SC; -LANTUS SOLOS100 U/ML SUBQ; -LEVAQUIN500 MG PO; -LEVAQUIN750 MG PO; +LORA-476 PO; +METF1000 PO; -MOTRIN800 MG PO; -NORCO 10/325 MG1 TAB PO; -NORCO 5/325 MG1 TAB PO; -NOVOLIN R 100 UNIT SUBQ; +PANT40EC PO; -PERCOCET 5/3251 TAB PO; -PRADAXA150 MG PO; +PRED20TA6 PO; -PREDNISONE; -PREDNISONE10 MG PO; -PREDNISONE20 M1 PO; -PREDNISONE20 MG PO; -PREDNISONE5 MG PO; -PREDNISONE50 MG PO; -PROAIR; -PROAIR HFA0.09 MG/Ac IH; -PROTONIX40 MG PO; -PROVENTIL HFA M18 GM INH; +ROBAC PO; -ROBITUSSIN/CODEI5 ML PO; -SINGULAIR; -SINGULAIR10 MG PO; -SPIRIVA MD18 MCG/CAP INH; -SPIRIVA18 MCG; -SYMBICORT1 AE1 IH; -VENTOLIN H0.09 MG/Ac IH; -VICODIN 5/500 M1 TAB PO; -ZITHROMAX TRI-500 MG PO; -ZITHROMAX Z-PA250 MG PO; -ZITHROMAX200 MG/5 M PO; -ZITHROMAX250 MG PO; -ZITHROMAX500 MG PO; +ZOLP5TAB1 PO
[2017-03-11 16:50] VITALS: BP 158/103
[2017-03-11 17:19] LABS: BASOPHILS # (AUTO) 0.2 K/uL (0.00-0.22); BASOPHILS % (AUTO) 2.5 % (0.0-2.0); EOSINOPHILS # (AUTO) 0.3 K/uL (0-0.4); EOSINOPHILS % (AUTO) 3.2 % (0.0-4.0); HEMATOCRIT 45.7 % (36-48); HEMOGLOBIN 14.6 g/dL (12.0-16.0); LYMPHOCYTES # (AUTO) 3.1 K/uL (2.5-16.5); LYMPHOCYTES % (AUTO) 33.3 % (20.5-51.1); MEAN CORPUSCULAR HEMOGLOBIN 29 pg (27-31); MEAN CORPUSCULAR HGB CONC 32 g/dL (33-37); MEAN CORPUSCULAR VOLUME 89 fL (80-94); MONOCYTES # (AUTO) 0.4 K/uL (0.8-1.0); MONOCYTES % (AUTO) 3.9 % (1.7-9.3); NEUTROPHILS # (AUTO) 5.4 K/uL (1.8-7.7); NEUTROPHILS % (AUTO) 57.1 % (42.2-75.2); PLATELET COUNT (AUTO) 399 K/uL (140-450); RED BLOOD CELL COUNT(AUTO) 5.12 MIL/uL (4.20-5.40); RED CELL DISTRIBUTION WIDTH 13.9 % (11.6-13.7); WHITE BLOOD COUNT (AUTO) 9.4 K/uL (4.8-10.8)
[2017-03-11 17:42] LABS: ALBUMIN 3.9 g/dL (3.4-5.0); ANION GAP 11.6 (8-16); CALCIUM 8.9 mg/dL (8.5-10.1); CARBON DIOXIDE 28.6 mmol/L (21-32); CREATININE 0.9 mg/dL (0.6-1.3); POTASSIUM 4.2 mmol/L (3.5-5.1); TOTAL BILIRUBIN 0.3 mg/dL (0.0-1.0)
[2017-03-11 17:49] LABS: PARTIAL THROMBOPLASTIN TIME 25.4 secs (22-35.6); PROTHROMBIN TIME 9.8 secs (10.8-13.4)
[2017-03-11] MEDS ORDERED: NACL 0.9% 1,000 ML IV ONE (18:10)
[2017-03-11] MEDS ORDERED: predniSONE 20 MG TAB PO ONE (18:35)
[2017-03-11] MEDS ORDERED: ALBUTEROL 0.083% 2.5 MG/3 ML NEBU INH ONE (18:35)
[2017-03-11] MEDS ORDERED: ALBUTEROL SULFATE/IPRATROPIU 3 ML SOL IH ONE ×2 (18:35→19:40)
[2017-03-11] MEDS ORDERED: MORPHINE SULFATE 2 MG/ML SYR IVP ONE (19:40)
[2017-03-11] MEDS: NACL 0.9% 1,000 ML IV SCH ×2 (19:56→21:27)
[2017-03-11] MEDS ORDERED: ACETAMINOPHEN 325 MG TAB PO PRN (20:00)
[2017-03-11] MEDS ORDERED: ONDANSETRON 4 MG/2 ML VIAL IVP PRN (20:00)
[2017-03-11] MEDS ORDERED: HYDROcodone/APAP 5/325 MG 1 TAB TAB PO PRN (20:00)
[2017-03-11] MEDS ORDERED: LORazepam 2 MG/ML VIAL IVP PRN (20:00)
[2017-03-11 20:40] LABS: LACTIC ACID 1.1 mmol/L (0.4-2.0)
[2017-03-11 21:00] VITALS: BP 124/69
[2017-03-11] MEDS ORDERED: AZITHROMYCIN 500 MG INJ VIAL IV ONE (21:27)
[2017-03-11] MEDS: AZITHROMYCIN 500 MG in DEXTROSE 5% 250 ML IV SCH (22:08)
[2017-03-12] MEDS: methylPREDNISolone SS 125 MG/2 ML VIAL IVP SCH ×4 (00:18→17:22)
[2017-03-12 00:35] VITALS: BP 127/77
[2017-03-12] MEDS: IPRATROPIUM 0.02% 0.5 MG/2.5 ML NEBU INH SCH ×4 (01:01→19:09)
[2017-03-12] MEDS: ALBUTEROL 0.083% 2.5 MG/3 ML NEBU INH SCH ×4 (01:01→19:09)
[2017-03-12] MEDS: HYDROcodone/APAP 10/325 MG 1 TAB TAB PO PRN ×6 (01:27→22:02)
[2017-03-12] MEDS ORDERED: DEXTROSE 50% 50 ML SYR IVP PRN ×2 (01:45)
[2017-03-12] MEDS: BLOOD GLUCOSE MONITORING 1 DEV DEV FS SCH ×4 (06:13→20:12)
[2017-03-12] MEDS: INSULIN LISPRO SLIDING SCALE 100 UNITS/ML VIAL SUBQ PRN ×4 (06:14→20:18)
[2017-03-12 06:37] LABS: ALBUMIN 3.2 g/dL (3.4-5.0); ANION GAP 12.7 (8-16); CALCIUM 8.3 mg/dL (8.5-10.1); CARBON DIOXIDE 24.1 mmol/L (21-32); CREATININE 0.8 mg/dL (0.6-1.3); POTASSIUM 4.8 mmol/L (3.5-5.1); TOTAL BILIRUBIN 0.2 mg/dL (0.0-1.0); TOTAL PROTEIN, SERUM 6.8 g/dL (6.4-8.2)
[2017-03-12 06:44] LABS: BASOPHILS # (AUTO) 0.1 K/uL (0.00-0.22); BASOPHILS % (AUTO) 0.9 % (0.0-2.0); EOSINOPHILS # (AUTO) 0.1 K/uL (0-0.4); EOSINOPHILS % (AUTO) 1.3 % (0.0-4.0); HEMATOCRIT 38.8 % (36-48); HEMOGLOBIN 12.5 g/dL (12.0-16.0); LYMPHOCYTES # (AUTO) 0.6 K/uL (2.5-16.5); LYMPHOCYTES % (AUTO) 7.6 % (20.5-51.1); MEAN CORPUSCULAR HEMOGLOBIN 29 pg (27-31); MEAN CORPUSCULAR HGB CONC 32 g/dL (33-37); MEAN CORPUSCULAR VOLUME 90 fL (80-94); MONOCYTES % (AUTO) 0.6 % (1.7-9.3); NEUTROPHILS # (AUTO) 6.7 K/uL (1.8-7.7); NEUTROPHILS % (AUTO) 89.6 % (42.2-75.2); PLATELET COUNT (AUTO) 315 K/uL (140-450)
[2017-03-12 07:16] LABS: WHITE BLOOD COUNT (AUTO) 7.5 K/uL (4.8-10.8)
[2017-03-12] MEDS ORDERED: BLOOD GLUCOSE MONITORING 1 DEV DEV FS SCH (07:30)
[2017-03-12 08:00] VITALS: BP 120/74
[2017-03-12] MEDS: ENOXAPARIN 40 MG/0.4 ML SYR SUBQ SCH (08:27)
[2017-03-12] MEDS ORDERED: ENOXAPARIN 30 MG/0.3 ML SYR SUBQ SCH (09:00)
[2017-03-12 16:00] VITALS: BP 120/69
[2017-03-12] MEDS ORDERED: INSULIN LISPRO 100 UNITS/ML VIAL SUBQ SCH (18:55)
[2017-03-12] MEDS: AZITHROMYCIN 500 MG in DEXTROSE 5% 250 ML IV SCH (20:09)
[2017-03-12] MEDS ORDERED: INSULIN DETEMIR 100 UNITS/ML 10 ML VIAL SUBQ SCH (21:00)
[2017-03-12] MEDS: NACL 0.9% 1,000 ML IV SCH (22:36)
[2017-03-13 00:10] VITALS: BP 124/66
[2017-03-13] MEDS: methylPREDNISolone SS 125 MG/2 ML VIAL IVP SCH ×4 (00:19→11:57)
[2017-03-13] MEDS: ALBUTEROL 0.083% 2.5 MG/3 ML NEBU INH SCH ×3 (00:28→13:07)
[2017-03-13] MEDS: IPRATROPIUM 0.02% 0.5 MG/2.5 ML NEBU INH SCH ×3 (00:28→13:07)
[2017-03-13] MEDS: HYDROcodone/APAP 10/325 MG 1 TAB TAB PO PRN ×4 (02:48→15:05)
[2017-03-13] MEDS ORDERED: MORPHINE SULFATE 2 MG/ML SYR IVP PRN (03:35)
[2017-03-13] MEDS: BLOOD GLUCOSE MONITORING 1 DEV DEV FS SCH ×2 (06:10→11:53)
[2017-03-13] MEDS: INSULIN LISPRO SLIDING SCALE 100 UNITS/ML VIAL SUBQ PRN ×2 (06:11→11:56)
[2017-03-13] MEDS ORDERED: HYDROcodone/APAP 10/325 MG 1 TAB TAB ONE (06:51)
[2017-03-13 08:00] VITALS: BP 132/65
[2017-03-13] MEDS: ENOXAPARIN 40 MG/0.4 ML SYR SUBQ SCH (08:43)
[2017-03-13] MEDS: NACL 0.9% 1,000 ML IV SCH (11:56)
[2017-03-13] MEDS ORDERED: METH4TAB1 PO (13:50)
[2017-03-13] MEDS ORDERED: AZIT250T4 PO (13:51)
== END 2017-03-13 15:21 | disposition home or self-care (01) | DRG 140 ==
LOC: MED 16:47 → MTU 20:02
PROVIDERS: ADMIT Hospitalist; ATTEND Hospitalist
DX: J44.1 Chronic obstructive pulmonary disease with (acute) exacerbation (principal); J96.10 Chronic respiratory failure, unspecified whether with hypoxia or hypercapnia; Z99.81 Dependence on supplemental oxygen; I48.2 Chronic atrial fibrillation; E11.9 Type 2 diabetes mellitus without complications; I10 Essential (primary) hypertension; K21.9 Gastro-esophageal reflux disease without esophagitis; Z87.891 Personal history of nicotine dependence; Z88.0 Allergy status to penicillin; Z88.1 Allergy status to other antibiotic agents; Z90.49 Acquired absence of other specified parts of digestive tract; Z88.2 Allergy status to sulfonamides
CPT/HCPCS: 36415; 71010; 80053; 82948; 83605; 83735; 83880; 84484; 85025; 85610; 85730; 87040; 87081; 93005; 94640; 96374; 99285; J0456; J1650; J1815; J2270; J2930; J7030; J7060; J7512; J7613; J7620; J7644

== ENCOUNTER 2017-05-10 07:50 | Emergency (ER) | payer OTHER ==
[~2017-05-10] VITALS: Ht 157.5 cm; Wt 71.3 kg
[~2017-05-10 07:50] MED LIST changes: +AZIT250T4 PO; +METH4TAB1 PO
[2017-05-10 07:53] VITALS: BP 158/97
--- NOTE | 2017-05-10 08:02 | NUR ---
Pt placed in bed 3.
--- NOTE | 2017-05-10 08:08 | NUR ---
Dr. Friedman evaluating patient at bedside.
[2017-05-10] MEDS ORDERED: predniSONE 20 MG TAB PO ONE (08:10)
[2017-05-10] MEDS ORDERED: ALBUTEROL 0.083% 2.5 MG/3 ML NEBU INH ONE (08:10)
[2017-05-10] MEDS ORDERED: ALBUTEROL SULFATE/IPRATROPIU 3 ML SOL IH ONE (08:10)
[2017-05-10] MEDS ORDERED: KETOROLAC 30 MG/ML VIAL IVP ONE (08:10)
--- NOTE | 2017-05-10 08:15 | NUR ---
X-Ray at bedside.
--- NOTE | 2017-05-10 08:19 | NUR ---
RT AT BEDSIDE
--- NOTE | 2017-05-10 08:23 | NUR ---
Breathing treatment administered by respiratory therapist at bedside.
[2017-05-10 08:42] LABS: BASOPHILS # (AUTO) 0.1 K/uL (0.00-0.22); BASOPHILS % (AUTO) 1.5 % (0.0-2.0); EOSINOPHILS # (AUTO) 0.1 K/uL (0-0.4); EOSINOPHILS % (AUTO) 1.7 % (0.0-4.0); HEMOGLOBIN 14.1 g/dL (12.0-16.0); LYMPHOCYTES # (AUTO) 1.8 K/uL (2.5-16.5); LYMPHOCYTES % (AUTO) 21.2 % (20.5-51.1); MEAN CORPUSCULAR HEMOGLOBIN 30 pg (27-31); MEAN CORPUSCULAR HGB CONC 33 g/dL (33-37); MEAN CORPUSCULAR VOLUME 91 fL (80-94); MONOCYTES # (AUTO) 0.2 K/uL (0.8-1.0); MONOCYTES % (AUTO) 1.9 % (1.7-9.3); NEUTROPHILS # (AUTO) 6.5 K/uL (1.8-7.7); NEUTROPHILS % (AUTO) 73.7 % (42.2-75.2); PLATELET COUNT (AUTO) 356 K/uL (140-450); RED BLOOD CELL COUNT(AUTO) 4.74 MIL/uL (4.20-5.40); RED CELL DISTRIBUTION WIDTH 14.1 % (11.6-13.7); WHITE BLOOD COUNT (AUTO) 8.7 K/uL (4.8-10.8)
--- NOTE | 2017-05-10 08:46 | NUR ---
BREATHING TREATMENT COMPLETED, PT ADMITS BREATHING A LITTLE EASIER. AUDIBLE RHONCHI MILD WHEEZING---4-5 WORDED SPEECH AT THIS TIME. WILL CONTINUE TO OBSERVE FOR S/S RESP DISTRESS.
[2017-05-10 09:07] LABS: ANION GAP 15.4 (8-16); CALCIUM 8.7 mg/dL (8.5-10.1); CARBON DIOXIDE 27.1 mmol/L (21-32); CREATININE 0.8 mg/dL (0.6-1.3); POTASSIUM 4.5 mmol/L (3.5-5.1)
[2017-05-10 09:10] LABS: PARTIAL THROMBOPLASTIN TIME 26.2 secs (22-35.6); PROTHROMBIN TIME 10.3 secs (10.8-13.4)
[2017-05-10 09:15] LABS: ALBUMIN 3.9 g/dL (3.4-5.0); TOTAL BILIRUBIN 0.4 mg/dL (0.0-1.0); TOTAL PROTEIN, SERUM 7.6 g/dL (6.4-8.2)
[2017-05-10] MEDS ORDERED: MORPHINE SULFATE 4 MG/ML SYR IVP ONE (09:35)
--- NOTE | 2017-05-10 09:43 | NUR ---
PT SITTING UP IN [facility]--C/O PAIN ---MD MADE AWARE MEDICATED FOR PAIN CONTROL---WILL CONTINUE TO OBSERVE FOR PAIN CONTROL
[2017-05-10 10:10] VITALS: BP 133/83
--- NOTE | 2017-05-10 10:11 | NUR ---
Patient discharged with v/s stable. Written and verbal after care instructions given and explained. Patient alert, oriented and verbalized understanding of instructions. Ambulatory with steady gait. All questions addressed prior to discharge. ID band removed. Patient advised to follow up with PMD. Rx of PREDNISONE given. Patient educated on indication of medication including possible reaction and side effects. Opportunity to ask questions provided and answered.
== END 2017-05-10 10:11 | disposition home or self-care (01) ==
LOC: MED 07:50
DX: J44.1 Chronic obstructive pulmonary disease with (acute) exacerbation (principal); E11.9 Type 2 diabetes mellitus without complications; K21.9 Gastro-esophageal reflux disease without esophagitis; I48.91 Unspecified atrial fibrillation; Z88.0 Allergy status to penicillin; Z88.1 Allergy status to other antibiotic agents; Z79.899 Other long term (current) drug therapy
CPT/HCPCS: 36415; 71010; 80053; 81002; 81025; 82948; 83880; 84484; 85025; 85610; 85730; 94640; 96374; 96375; 99285; J1885; J2270; J7512; J7613; J7620; Q0092; 93005

== ENCOUNTER 2017-07-09 09:55 | Emergency (ER) | payer OTHER ==
[~2017-07-09] VITALS: Ht 157.5 cm; Wt 69.4 kg
[2017-07-09 10:17] VITALS: BP 148/102
--- NOTE | 2017-07-09 12:16 | NUR ---
Patient ambulated to bed EDGI. RN evaluating patient at bedside.
--- NOTE | 2017-07-09 12:20 | NUR ---
62F BIB SELF C/O 07/30 "SHARP" NON-RADIATING LBP AND TAILBONE PAIN S/P FALL; PT STATES HER LEGS "GAVE OUT" AND SHE FALL APPROX 6 STAIRS AND LANDED ON HER TAILBONE; PT DENIES ANY NUMBNESS, WEAKNESS, BOWEL OR BLADDER INCONTINENCE; IN LOWER EXTREMITIES; CMS INTACT TO BL LOWER EXTREMITIES; DENIES N/V/D; SKIN IS PINK/WARM/DRY; AAOX4 WITH EVEN AND STEADY GAIT; RR ARE EVEN AND UNLABORED; VSS; PATIENT POSITIONED FOR COMFORT; HOB ELEVATED; BEDRAILS UP X2; BED DOWN. ER MD MADE AWARE OF PT STATUS.
--- NOTE | 2017-07-09 12:20 | NUR ---
PT PRESENTS TO ER S/P FALL DOWN STAIRS LAST NOC W/C/O BUTTOCK AND LBP. HX DM, COPD, ASTHMA, A-FIB, OSTEOPOROSIS. DENIES N/V/D; SKIN IS PINK/WARM/DRY; AAOX4 WITH EVEN AND STEADY GAIT; LUNGS CLEAR BL; HR EVEN AND REGULAR; PT DENIES ANY FEVER, CP, SOB, OR COUGH AT THIS TIME; PATIENT STATES PAIN OF 8/10 AT THIS TIME; VSS; PATIENT POSITIONED FOR COMFORT; HOB ELEVATED; BEDRAILS UP X2; BED DOWN. ER MD MADE AWARE OF PT STATUS.
--- NOTE | 2017-07-09 12:21 | NUR ---
Dr. Coronel evaluating patient at bedside.
--- NOTE | 2017-07-09 12:34 | NUR ---
Patient taken to XRAY via wheelchair by tech.
[2017-07-09] MEDS ORDERED: KETOROLAC 60 MG/2 ML VIAL IM ONE (13:00)
[2017-07-09 13:46] VITALS: BP 138/89
--- NOTE | 2017-07-09 13:46 | NUR ---
Patient discharged with v/s stable. Written and verbal after care instructions given and explained. Patient verbalized understanding. Ambulatory with steady gait. All questions addressed prior to discharge. Advised to follow up with PMD.
== END 2017-07-09 13:46 | disposition home or self-care (01) ==
LOC: MED 09:55
DX: S30.0XXA Contusion of lower back and pelvis, initial encounter (principal); M54.16 Radiculopathy, lumbar region; R03.0 Elevated blood-pressure reading, without diagnosis of hypertension; I48.91 Unspecified atrial fibrillation; J44.9 Chronic obstructive pulmonary disease, unspecified; E11.9 Type 2 diabetes mellitus without complications; K21.9 Gastro-esophageal reflux disease without esophagitis; M81.0 Age-related osteoporosis without current pathological fracture; Z88.0 Allergy status to penicillin; Z88.1 Allergy status to other antibiotic agents; Z79.899 Other long term (current) drug therapy; W10.8XXA Fall (on) (from) other stairs and steps, initial encounter; Y93.89 Activity, other specified; Y92.89 Other specified places as the place of occurrence of the external cause; Y99.8 Other external cause status
CPT/HCPCS: 72100; 72220; 96372; 99284; J1885

== ENCOUNTER 2018-06-24 09:51 | Inpatient (IN) | payer OTHER ==
[~2018-06-24] VITALS: Ht 160 cm; Wt 72.6 kg
[~2018-06-24 09:51] MED LIST changes: -ALBU3SOL IH; +ALBU3SOL28 IH
[2018-06-24 10:10] VITALS: BP 149/70
--- NOTE | 2018-06-24 10:18 | NUR ---
PT TAKEN TO BED VIA WHEELCHAIR
--- NOTE | 2018-06-24 10:20 | NUR ---
63yo f to er for sob, dyspenia. pt states sob and productive cough x4 days. audible wheezes with expriation, wheezes noted throughout. pt with tripoding with labored breathing. even chest rise and fall. pt states rib pain with rr. 2l os via n/c, o2 sat at 100% abd soft non tender. erdm made aware. will continue to monitoring. pt positioned for comfort. pt placed in gown
--- NOTE | 2018-06-24 10:55 | NUR ---
dr mendoza at bedside evaluating pt
[2018-06-24] MEDS ORDERED: NACL 0.9% 500 ML IV SCH (10:57)
[2018-06-24] MEDS ORDERED: GENTAMICIN 80 MG in DEXTROSE 5% 100 ML IV ONE (11:00)
[2018-06-24] MEDS ORDERED: MORPHINE SULFATE 2 MG/ML SYR IVP ONE ×2 (11:00→13:35)
[2018-06-24] MEDS ORDERED: IPRATROPIUM 0.02% 0.5 MG/2.5 ML NEBU INH ONE (11:00)
[2018-06-24] MEDS ORDERED: ALBUTEROL 0.083% 2.5 MG/3 ML NEBU INH ONE (11:00)
[2018-06-24] MEDS ORDERED: KETOROLAC 30 MG/ML VIAL IVP ONE (11:00)
[2018-06-24] MEDS ORDERED: CLINDAMYCIN 900 MG in DEXTROSE 5% 100 ML IV ONE (11:00)
[2018-06-24] MEDS ORDERED: methylPREDNISolone SS 125 MG/2 ML VIAL IVP ONE (11:00)
[2018-06-24] MEDS ORDERED: ONDANSETRON 4 MG/2 ML VIAL IVP ONE (11:00)
--- NOTE | 2018-06-24 11:07 | NUR ---
xray at bedside
[2018-06-24] MEDS ORDERED: GENTAMICIN 80 MG/2 ML VIAL ONE (11:15)
--- NOTE | 2018-06-24 11:30 | NUR ---
rt at bedside
[2018-06-24 11:31] LABS: BASOPHILS # (AUTO) 0.1 K/uL (0.00-0.22); BASOPHILS % (AUTO) 0.5 % (0.0-2.0); EOSINOPHILS # (AUTO) 0.1 K/uL (0-0.4); EOSINOPHILS % (AUTO) 1.1 % (0.0-4.0); HEMATOCRIT 40.8 % (36-48); HEMOGLOBIN 13.5 g/dL (12.0-16.0); LYMPHOCYTES # (AUTO) 1.5 K/uL (2.5-16.5); LYMPHOCYTES % (AUTO) 14.4 % (20.5-51.1); MEAN CORPUSCULAR HEMOGLOBIN 31 pg (27-31); MEAN CORPUSCULAR HGB CONC 33 g/dL (33-37); MEAN CORPUSCULAR VOLUME 92.8 fL (80-94); MONOCYTES # (AUTO) 0.3 K/uL (0.8-1.0); MONOCYTES % (AUTO) 2.6 % (1.7-9.3); NEUTROPHILS # (AUTO) 8.7 K/uL (1.8-7.7); NEUTROPHILS % (AUTO) 81.4 % (42.2-75.2); PLATELET COUNT (AUTO) 278 K/uL (140-450); WHITE BLOOD COUNT (AUTO) 10.7 K/uL (4.8-10.8)
--- NOTE | 2018-06-24 11:43 | NUR ---
Several attempts for ABG, and patient refused ABG. Dr. Bowers notified.
[2018-06-24 11:57] LABS: PROTHROMBIN TIME 9.5 secs (10.8-13.4)
[2018-06-24 11:58] LABS: ALBUMIN 3.4 g/dL (3.4-5.0); ANION GAP 10.8 (8-16); CARBON DIOXIDE 26.6 mmol/L (21-32); CREATININE 0.6 mg/dL (0.6-1.3); POTASSIUM 4.4 mmol/L (3.5-5.1); TOTAL BILIRUBIN 0.3 mg/dL (0.0-1.0)
--- NOTE | 2018-06-24 12:05 | NUR ---
PT RESTING IN BED WITH HOB UP. VSS. 2L O2 VIA NC. WILL CONTINUE TO MONITOR
[2018-06-24] MEDS ORDERED: CLINDAMYCIN 900 MG/6 ML VIAL IV ONE (12:58)
[2018-06-24] MEDS ORDERED: MAGNESIUM HYDROXIDE 2400 MG/30 ML UDC PO PRN (13:50)
[2018-06-24] MEDS ORDERED: ONDANSETRON 4 MG/2 ML VIAL IM/IVP PRN (13:50)
[2018-06-24] MEDS ORDERED: ZOLPIDEM 5 MG TAB PO PRN (13:50)
[2018-06-24] MEDS ORDERED: LORazepam 2 MG/ML VIAL IM/IVP PRN (13:50)
[2018-06-24] MEDS ORDERED: HYDROcodone/APAP 5/325 MG 1 TAB TAB PO PRN (13:50)
[2018-06-24] MEDS ORDERED: DOCUSATE SODIUM 100 MG GELCAP PO PRN (13:50)
[2018-06-24] MEDS ORDERED: ACETAMINOPHEN 325 MG TAB PO PRN (13:50)
--- NOTE | 2018-06-24 13:58 | NUR ---
PT AMBULATED TO THE RESTROOM WITH A STEADY GAIT.
[2018-06-24] MEDS ORDERED: ALBUTEROL SULFATE/IPRATROPIU 3 ML SOL IH PRN (14:00)
[2018-06-24 14:46] LABS: CHOL/HDL RATIO 2.9 (1-4.5); MAGNESIUM 1.8 mg/dL (1.8-2.4); PHOSPHORUS 2.4 mg/dL (2.5-4.9); THYROID STIMULATING HORMONE 1.17 uIU/mL (0.34-3.74)
--- NOTE | 2018-06-24 14:50 | NUR ---
PATIENT BROUGHT TO UNIT VIA GURNEY FROM THE ER. RECEIVED BEDSIDE REPORT FROM FIDE ANGULO. PATIENT IS AAOX4 AND AMBULATORY. HAS NO SIGNS AND SYMPTOMS OF ACUTE DISTRESS NOTED AT THIS TIME. HAS IV TO THE LEFT AC 20G. SALINE LOCK AT THIS TIME. IS ON NASAL CANNULA AT 2LPM. ORIENTED PATIENT TO THE ROOM, AND EXPLAINED THE CALL LIGHT. PATIENT VERBALIZED UNDERSTANDING. MRSA SWAB DONE. BED IN LOWEST POSITION, SIDE RAILS UP X2, CALL LIGHT WITHIN REACH. WILL CONTINUE TO MONITOR.
--- NOTE | 2018-06-24 14:52 | NUR ---
Patient will be admitted to care of DR VALIENTE. Admited to TELE. Will go to room 111B. Belongings list completed. Report to JANET ANGULO.
[2018-06-24 14:55] LABS: APPEARANCE,URINE CLEAR (CLEAR); BILIRUBIN,URINE 1+ (NEGATIVE); BLOOD, URINE 2+ (NEGATIVE); COLOR,URINE YELLOW (YELLOW); LEUKOCYTE ESTERASE ,URINE NEGATIVE (NEGATIVE); NITRITE, URINE NEGATIVE (NEGATIVE); UGLUCOSE NEGATIVE (NEGATIVE)
[2018-06-24 15:04] LABS: RBC,URINE 11-20 (MOD) /HPF (0-5); WBC,URINE 0-5 (RARE) /HPF (0-5)
[2018-06-24 15:05] LABS: BARBITURATE, URINE NEG. ng/ml (NEG <=200); BENZODIAZEPINE, URINE NEG. ng/mL (NEG <=200); CANNABINOID, URINE NEG. ng/mL (NEG <=50); COCAINE, URINE NEG. ng/mL (NEG <=300); OPIATE, URINE POS. ng/mL (NEG <=2000); PHENCYCLIDINE SCREEN,URINE NEG. ng/mL (NEG <=25)
[2018-06-24] MEDS ORDERED: HYDROcodone/APAP 10/325 MG 1 TAB TAB PO PRN (15:15)
[2018-06-24] MEDS ORDERED: SERT50TA PO (15:19)
[2018-06-24] MEDS ORDERED: ROFL250T PO (15:19)
[2018-06-24] MEDS ORDERED: ATRMDI INH (15:19)
[2018-06-24] MEDS ORDERED: [UNRECOGNIZED DRUG - CODE] PO (15:19)
[2018-06-24] MEDS ORDERED: MONT10TA35 PO (15:19)
[2018-06-24] MEDS ORDERED: ACET-787 PO (15:19)
[2018-06-24 16:00] VITALS: BP 107/64
[2018-06-24] MEDS ORDERED: SODIUM PHOS / POTASSIUM PHOS 1 PKT PDR PO SCH (17:00)
[2018-06-24] MEDS ORDERED: metFORMIN 500 MG TAB PO SCH (17:00)
[2018-06-24] MEDS ORDERED: MONTELUKAST SODIUM 10 MG TAB PO SCH (17:00)
[2018-06-24] MEDS: methylPREDNISolone SS 125 MG/2 ML VIAL IVP SCH (17:24)
[2018-06-24] MEDS: MORPHINE SULFATE 2 MG/ML SYR IVP PRN ×2 (17:25→21:02)
[2018-06-24] MEDS: LEVOFLOXACIN 750 MG/D5W PREMIX 150 ML IV SCH (17:25)
[2018-06-24] MEDS ORDERED: DEXTROSE 50% 50 ML SYR IVP PRN (17:45)
[2018-06-24] MEDS ORDERED: LEVOFLOXACIN 500 MG/D5W PREMIX 100 ML IV SCH (18:00)
[2018-06-24] MEDS ORDERED: ALBUTEROL SULFATE/IPRATROPIU 3 ML SOL IH SCH (19:00)
[2018-06-24] MEDS: ALBUTEROL SULFATE/IPRATROPIU 3 ML SOL IH SCH ×2 (19:09→22:51)
[2018-06-24] MEDS: BUDESONIDE 0.5 MG/2 ML NEBU INH SCH (19:10)
--- NOTE | 2018-06-24 19:25 | NUR ---
ENDORSED PATIENT TO WATCH LEADER RN FOR CONTINUITY OF CARE. PATIENT IN STABLE CONDITION.
--- NOTE | 2018-06-24 19:26 | NUR ---
RECEIVED REPORT FROM DAY SHIFT RN FOR CONTINUITY OF CARE. PT IS A/OX4, ON 2L O2 VIA NASAL CANNULA. PT IS ABLE TO MAKE NEEDS KNOWN, ABLE TO FOLLOW COMMANDS. PT AMBULATES WITH STEADY GAIT AND SKIN IS INTACT. PT HAS A 20G IV TO LEFT AC, ASYMPTOMATIC AND SL FOR NOW. VITAL SIGNS WITHIN NORMAL LIMITS. PT STABLE, NO SIGNS OF DISTRESS NOTED AT THIS TIME. BED IN LOWEST POSITION, BED ALARM ON. CALL LIGHT WITHIN REACH, WILL CONTINUE TO MONITOR.
[2018-06-24 20:00] VITALS: BP 99/54
[2018-06-24] MEDS: BLOOD GLUCOSE MONITORING 1 DEV DEV FS SCH (20:57)
[2018-06-24] MEDS: PANTOPRAZOLE 40 MG TABEC PO SCH (20:58)
[2018-06-24] MEDS ORDERED: methylPREDNISolone SS 80 MG in WATER STERILE 1 ML IV SCH (21:00)
[2018-06-24] MEDS ORDERED: methylPREDNISolone SS 125 MG/2 ML VIAL IVP SCH (21:00)
[2018-06-24] MEDS ORDERED: INSULIN LANTUS 100 UNITS/ML 10 ML VIAL SUBQ SCH (21:00)
[2018-06-24] MEDS: THEOPHYLLINE 80 MG/15 ML PO SCH (21:00)
[2018-06-24] MEDS ORDERED: NON-FORMULARY ITEM (Insulin Glargine,Hum.rec.anlog (Lantus Solostar) 20 UNIT) SUBQ SCH (21:00)
[2018-06-24] MEDS: NACL 0.9% 1,000 ML IV SCH (21:02)
[2018-06-24] MEDS: DABIGATRAN ETEXILATE MESYLAT 75 MG CAP PO SCH (21:05)
[2018-06-24] MEDS: INSULIN LISPRO SLIDING SCALE 100 UNITS/ML VIAL SUBQ PRN (21:09)
--- NOTE | 2018-06-24 21:10 | NUR ---
ADMINISTERED SCHEDULED MEDICATIONS, PT TOLERATED WELL. LANTUS INSULIN WAS HELD BECAUSE PT CLAIMS TO ONLY TAKE 20 UNITS/DAY AND THAT SHE HAS TAKEN THEM IN THE MORNING. SPOKE TO DR BRUNER ABOUT THIS AND ABOUT THE ORDER FOR IVF NS@100ML/HR ON THIS CHF PT. SAID TO HOLD LANTUS FOR NOW AND ADMINISTER HUMALOG SLIDING SCALE AND CHECK BLOOD SUGAR AGAIN LATER, ALSO THAT IVF ORDER WAS CORRECT, SINCE PT HAD CT WITH CONTRAST DONE, JUST WANTS TO FLUSH CONTRAST OUT.
--- NOTE | 2018-06-24 23:05 | NUR ---
PT RESTING, STABLE, NO SIGNS OF DISTRESS NOTED AT THIS TIME. BED IN LOWEST POSITION, BED ALARM ON. CALL LIGHT WITHIN REACH, WILL CONTINUE TO MONITOR.
[2018-06-25] VITALS: BP 129/68
[2018-06-25] MEDS: methylPREDNISolone SS 125 MG/2 ML VIAL IVP SCH ×5 (00:09→23:58)
--- NOTE | 2018-06-25 00:09 | NUR ---
ADMINISTERED SCHEDULED MEDICATION, PT TOLERATED WELL.
[2018-06-25] MEDS: MORPHINE SULFATE 2 MG/ML SYR IVP PRN ×6 (01:20→23:58)
--- NOTE | 2018-06-25 01:20 | NUR ---
ADMINISTERED 1MG OF MORPHINE PER ORDER FOR 8/10 PAIN TO THORACIC AREA. PT TOLERATED WELL.
[2018-06-25] MEDS: ALBUTEROL SULFATE/IPRATROPIU 3 ML SOL IH SCH ×6 (02:53→23:23)
[2018-06-25 04:00] VITALS: BP 134/71
--- NOTE | 2018-06-25 04:00 | NUR ---
VITAL SIGNS WITHIN NORMAL LIMITS. PT STABLE, NO SIGNS OF DISTRESS NOTED AT THIS TIME. BED IN LOWEST POSITION, BED ALARM ON. CALL LIGHT WITHIN REACH, WILL CONTINUE TO MONITOR.
[2018-06-25] MEDS: THEOPHYLLINE 80 MG/15 ML PO SCH ×3 (05:46→20:17)
[2018-06-25] MEDS: BLOOD GLUCOSE MONITORING 1 DEV DEV FS SCH ×4 (05:47→20:20)
[2018-06-25] MEDS: INSULIN LISPRO SLIDING SCALE 100 UNITS/ML VIAL SUBQ PRN ×4 (05:47→20:26)
--- NOTE | 2018-06-25 05:50 | NUR ---
ADMINISTERED SCHEDULED MEDICATIONS AND MORPHINE FOR PAIN PER ORDERS, PT TOLERATED WELL.
[2018-06-25] MEDS: NACL 0.9% 1,000 ML IV SCH (05:52)
[2018-06-25 07:13] LABS: BASOPHILS % (AUTO) 0.3 % (0.0-2.0); HEMATOCRIT 36.4 % (36-48); HEMOGLOBIN 11.9 g/dL (12.0-16.0); LYMPHOCYTES # (AUTO) 0.6 K/uL (2.5-16.5); LYMPHOCYTES % (AUTO) 6.4 % (20.5-51.1); MEAN CORPUSCULAR HEMOGLOBIN 30 pg (27-31); MEAN CORPUSCULAR HGB CONC 33 g/dL (33-37); MEAN CORPUSCULAR VOLUME 92.6 fL (80-94); MONOCYTES # (AUTO) 0.2 K/uL (0.8-1.0); NEUTROPHILS # (AUTO) 8.3 K/uL (1.8-7.7); NEUTROPHILS % (AUTO) 91.3 % (42.2-75.2); PLATELET COUNT (AUTO) 262 K/uL (140-450); RED BLOOD CELL COUNT(AUTO) 3.93 MIL/uL (4.20-5.40); RED CELL DISTRIBUTION WIDTH 14.9 % (11.6-13.7); WHITE BLOOD COUNT (AUTO) 9.1 K/uL (4.8-10.8)
[2018-06-25 07:20] LABS: ANION GAP 11.8 (8-16); CARBON DIOXIDE 24.1 mmol/L (21-32); CREATININE 0.7 mg/dL (0.6-1.3); POTASSIUM 4.9 mmol/L (3.5-5.1)
[2018-06-25 07:34] LABS: MAGNESIUM 1.6 mg/dL (1.8-2.4); PHOSPHORUS 2.4 mg/dL (2.5-4.9)
--- NOTE | 2018-06-25 07:39 | NUR ---
ENDORSED PT IN STABLE CONDITION TO DAY SHIFT RN FOR CONTINUITY OF CARE.
--- NOTE | 2018-06-25 07:40 | NUR ---
RECEIVED REPORT FROM PM NURSE AT THE BEDSIDE. PT AWAKE AND ALERT. SITTING ON HER BEDSIDE. INTRODUCED SELF AND UPDATED BOARD. PT COUGHING. RECEIVING BREATHING TREATMENT. VS STABLE, HR 115. PT ABLE TO COMMUNICATE AND AMBULATORY. PT IS ON O2 2L ON NC. O2 SAT 96%. BED AT THE LOWER POSITION, CALL LIGHT WITHIN PT REACH. INFORMED PT TO USE CALL LIGHT FOR ANY HELP. WILL CONTINUE TO MONITOR PT.
[2018-06-25] MEDS: BUDESONIDE 0.5 MG/2 ML NEBU INH SCH ×2 (07:47→20:27)
--- NOTE | 2018-06-25 07:47 | NUR ---
AWAKE AND ALERT RESPONSIVE C/O OF NASAL DRYNESS POST HHN THERAPY ADDED A HUMIDIFIER
[2018-06-25 08:00] VITALS: BP 143/83
[2018-06-25] MEDS ORDERED: ALBUTEROL SULFATE/IPRATROPIU 3 ML SOL IH PRN (08:15)
[2018-06-25] MEDS ORDERED: INSULIN LISPRO SLIDING SCALE 100 UNITS/ML VIAL SUBQ PRN (08:25)
[2018-06-25] MEDS ORDERED: DEXTROSE 50% 50 ML SYR IVP PRN (08:25)
[2018-06-25] MEDS ORDERED: FUROSEMIDE 40 MG/4 ML VIAL IVP SCH (08:56)
[2018-06-25] MEDS ORDERED: INSULIN LANTUS 100 UNITS/ML 10 ML VIAL SUBQ SCH (09:00)
[2018-06-25] MEDS ORDERED: THEOPHYLLINE 300 MG TABER PO SCH (09:00)
[2018-06-25] MEDS ORDERED: MAGNESIUM OXIDE 400 MG TAB PO SCH (09:00)
--- NOTE | 2018-06-25 09:09 | NUR ---
PATIENT HAS BEEN SCREENED AND CATEGORIZED MODERATE NUTRITION RISK. PATIENT WILL BE SEEN WITHIN 3-5 DAYS OF ADMISSION. 06/27/18 06/29/[address]
[2018-06-25] MEDS: SODIUM PHOS / POTASSIUM PHOS 1 PKT PDR PO SCH ×2 (09:19→20:15)
[2018-06-25] MEDS: LACTOBACILLUS RHAMNOSUS GG 1 EACH CAP PO SCH (09:19)
[2018-06-25] MEDS: PANTOPRAZOLE 40 MG TABEC PO SCH ×2 (09:20→20:14)
[2018-06-25] MEDS: SERTRALINE 50 MG TAB PO SCH (09:20)
[2018-06-25] MEDS: ASPIRIN 81 MG TAB.CHEW PO SCH (09:20)
[2018-06-25] MEDS: MONTELUKAST SODIUM 10 MG TAB PO SCH (09:20)
[2018-06-25] MEDS: DABIGATRAN ETEXILATE MESYLAT 75 MG CAP PO SCH ×2 (09:26→20:26)
--- NOTE | 2018-06-25 09:30 | NUR ---
STARTED NEW IV SULTANA SIS PT ON HER RT FA, 24 G. PATENT AND INTACT. ADMINISTERED ALL MEDS ORDERED. TOLERATED WELL. PT STILL COUGHING. PER USE TO TAKE COUGH MEDS AT HOME. MEDICATED FOR THE PAIN MEDS FOR PAIN OF 10. PT STABLE AT THIS TIME. PLACED CALL LIGHT WITHIN PT REACH, BED AT THE LOWER POSITION. PT WANTS TO PUT RT SIDE RAILS DOWN SHE FEEL COMFORTABLE , PUTTING HER LEG DOWN ON THE FLOOR. WILL CONTINUE TO MONITOR PT.
[2018-06-25] MEDS ORDERED: MAG SULF 2000 MG/WATER PREMIX 50 ML IV SCH (10:40)
[2018-06-25] MEDS: HYDROcodone/APAP 10/325 MG 1 TAB TAB PO PRN ×2 (11:05→20:15)
--- NOTE | 2018-06-25 11:05 | NUR ---
CHECKED ON PT. STATES TO HAVE PAIN /10 . ASKING FOR PAIN MEDICATION. ADMINISTERED MEDS FOR PAIN MANAGEMENT. WILL REASSESS HER PAIN IN 1 HR. WILL CONTINUE TO MONITOR PT.
--- NOTE | 2018-06-25 11:27 | NUR ---
CM NOTE ADMISSION CHART REVIEW DONE. INITIAL REVIEW FAXED TO [facility] [phone] JOON PH# [phone] SKYLAR HARMON PH# [phone] AND TO [facility] [phone] PH# [phone]. RECEIVED CALL FROM [facility] COORDINATOR GILLIAN ON 06/24/18 AND SHE ASKED FOR MY CONTACT INFORMATION, THE NUMBER TO THE NURSING STATION WHERE PATIENT IS AND THE NUMBER OF THE ATTENDING PHYSICIAN IN CASE THEY NEED TO TRANSFER PATIENT TO ONE OF THEIR CONTRACTED FACILITIES. SPOKE WITH [facility] COORDINATOR GILLIAN TODAY PH# [phone] EXT [phone] TO FOLLOW UP IF THEY WANTED TO TRANSFER PATIENT TO ONE OF THEIR CONTRACTED FACILITIES AND PER GILLIAN, UNLESS THE ASSIGNED CM JONATHAN EXT [phone] GIVES THE HOSPITAL A CALL TO TRANSFER PATIENT THEN PATIENT DOES NOT HAVE TO BE TRANSFERRED.
[2018-06-25] MEDS ORDERED: BLOOD GLUCOSE MONITORING 1 DEV DEV FS SCH (11:30)
--- NOTE | 2018-06-25 11:44 | NUR ---
POST HHN THERAPY RECEIVED PHONE CALL FROM FAMILY/FRIEND DYE HOUSE HELPER TO ATTEMPT INCENTIVE SPIROMETRY THERAPY AT A LATER TIME
--- NOTE | 2018-06-25 11:50 | NUR ---
AWAKE AND ALERT RESPONSIVE INCENTIVE SPIROMETRY ATTEMPT 4 ONLY PATIENT PRESENTING WITH INCREASED COUGHING PATIENT STATES SHE WILL ATTEMPT AT A LATER TIME CMA INFORMED TO PATIENT WITH ACKNOWLEDGEMENT TO ATTEMPT AT LEAST 1-2 HOURS WHILE AWAKE
[2018-06-25 12:00] VITALS: BP 116/72
--- NOTE | 2018-06-25 12:15 | NUR ---
CHECKED ON PT. BS 373 AT THIS TIME. REQUIRES HUMOLOG. ADMINISTERED HUMOLOG BASED ON SLIDING SCALE. PT WITH DAYCARE TEACHER. WILL MEDICATE OTHER SCHEDULED MEDS LATER. WILL CONTINUE TO MONITOR PT.
[2018-06-25] MEDS ORDERED: CLINDAMYCIN 600 MG in DEXTROSE 5% 50 ML IV SCH (13:00)
[2018-06-25] MEDS: CLINDAMYCIN PHOS 600MG/D5W PM 50 ML IV SCH ×2 (13:17→20:17)
[2018-06-25 16:00] VITALS: BP 147/69
--- NOTE | 2018-06-25 16:15 | NUR ---
CHECKED ON PT. VS NOTED, STABLE. BS 425. INFORMED SR ELISEO, ORDERED TO ADMINISTER 12 UNITS OF INSULIN BASED ON SLIDING SCALE AND PROTOCOL. PT HAVING BREATHING TREATMENT. NO SIGN OF DISTRESS. PT COMPLAIN PAIN 8/10 ALL OVER BODY. WILL MEDICATE ORDERED. ALL SAFETY MEASURE IN PLACE. WILL CONTINUE TO MONITOR PT.
[2018-06-25] MEDS: LEVOFLOXACIN 750 MG/D5W PREMIX 150 ML IV SCH (16:37)
--- NOTE | 2018-06-25 16:54 | NUR ---
ADMINISTERED PAIN MEDS FOR HER PAIN 8/10 AT CHEST AND ON H3ER BACK. ADMINISTERED 12 UNITS OF HOMOLOG FOR BS [address] GOMES ORDER. PT SITTING ON HER BED. NO SIGN OF DISTRESS. CALL LIGHT WITHIN PT REACH. WILL CONTINUE TO MONITOR PT.
--- NOTE | 2018-06-25 18:34 | NUR ---
ADMINISTERED MEDS TO PT ORDERED . TOLERATED WELL. PT COUGHING, DR ARCINIEGA AWARE, WILL ORDER COUGH MEDICATION. INFORMED PT HAS CHANGED IN HEART RHYTHM IN THE NOON FROM SR TO A-FIB AND BACK TO SR AFTER WALKING. CHARGE NURSE AWARE. WILL CONTINUE TO MONITOR PT.
--- NOTE | 2018-06-25 19:15 | NUR ---
ENDORSED PT TO PM NURSE AT BEDSIDE. PT IN STABLE CONDITION.
--- NOTE | 2018-06-25 19:16 | NUR ---
RECEIVED REPORT FROM DAY SHIFT RN FOR CONTINUITY OF CARE. PT IS A/OX4, ON 2L O2 VIA NASAL CANNULA. PT IS ABLE TO MAKE NEEDS KNOWN, ABLE TO FOLLOW COMMANDS. PT AMBULATES WITH STEADY GAIT AND SKIN IS INTACT. PT HAS A 24G IV TO RIGHT FOREARM, ASYMPTOMATIC AND SL FOR NOW. VITAL SIGNS WITHIN NORMAL LIMITS. PT STABLE, NO SIGNS OF DISTRESS NOTED AT THIS TIME. BED IN LOWEST POSITION, BED ALARM ON. CALL LIGHT WITHIN REACH, WILL CONTINUE TO MONITOR.
[2018-06-25 19:42] VITALS: BP 143/79
[2018-06-25] MEDS: guaiFENesin 20 MG/ML UDC PO PRN (20:16)
--- NOTE | 2018-06-25 20:27 | NUR ---
ADMINISTERED SCHEDULED MEDICATIONS ALONG WITH ROBITUSSIN FOR COUGH AND NORCO FOR PAIN ORDERED, PT TOLERATED WELL.
[2018-06-25] MEDS ORDERED: methylPREDNISolone SS 40 MG/ML VIAL IVP SCH (21:00)
[2018-06-26] VITALS: BP 116/60
[2018-06-26] MEDS: ALBUTEROL SULFATE/IPRATROPIU 3 ML SOL IH SCH ×6 (03:07→23:20)
[2018-06-26] MEDS: MORPHINE SULFATE 2 MG/ML SYR IVP PRN ×5 (03:40→20:28)
--- NOTE | 2018-06-26 03:40 | NUR ---
PERIODS OF A.FLUTTER THEN SINUS RHYTHM ON TELE MONITOR. KEEPS GOING BACK AND FORTH BETWEEN A FLUTTER AND SR, PT AMBULATES TO RESTROOM AND BACK TO BED. ADMINISTERED MORPHINE REQUESTED FOR 8/10 PAIN AT RIBS. PT TOLERATED WELL.
[2018-06-26 04:00] VITALS: BP 140/69
[2018-06-26] MEDS: CLINDAMYCIN PHOS 600MG/D5W PM 50 ML IV SCH ×3 (05:46→20:43)
[2018-06-26] MEDS: methylPREDNISolone SS 125 MG/2 ML VIAL IVP SCH ×3 (05:49→17:27)
[2018-06-26] MEDS: THEOPHYLLINE 80 MG/15 ML PO SCH ×3 (05:50→20:44)
[2018-06-26] MEDS: INSULIN LISPRO SLIDING SCALE 100 UNITS/ML VIAL SUBQ PRN ×4 (06:10→20:51)
[2018-06-26] MEDS: BLOOD GLUCOSE MONITORING 1 DEV DEV FS SCH ×4 (06:10→21:00)
--- NOTE | 2018-06-26 06:10 | NUR ---
CALLED RESIDENTS TO LET THEM KNOW PT BLOOD SUGAR IS 418, RESIDENT SAID "OK." ASKED IF I SHOULD GIVE 10 UNITS OF HUMALOG OR MORE, AND SAID YES. REPEATED "OK, SO JUST GIVE 10 UNITS OF HUMALOG?" SAID "YES."
[2018-06-26] MEDS: HYDROcodone/APAP 10/325 MG 1 TAB TAB PO PRN ×4 (06:17→22:08)
[2018-06-26 06:39] LABS: EOSINOPHILS % (AUTO) 0.1 % (0.0-4.0); HEMATOCRIT 39.7 % (36-48); HEMOGLOBIN 12.8 g/dL (12.0-16.0); LYMPHOCYTES # (AUTO) 0.5 K/uL (2.5-16.5); MEAN CORPUSCULAR HEMOGLOBIN 30 pg (27-31); MEAN CORPUSCULAR HGB CONC 32 g/dL (33-37); MEAN CORPUSCULAR VOLUME 93.2 fL (80-94); MONOCYTES # (AUTO) 0.3 K/uL (0.8-1.0); MONOCYTES % (AUTO) 2.3 % (1.7-9.3); NEUTROPHILS # (AUTO) 11.7 K/uL (1.8-7.7); NEUTROPHILS % (AUTO) 93.6 % (42.2-75.2); PLATELET COUNT (AUTO) 331 K/uL (140-450); RED BLOOD CELL COUNT(AUTO) 4.26 MIL/uL (4.20-5.40); RED CELL DISTRIBUTION WIDTH 15.3 % (11.6-13.7); WHITE BLOOD COUNT (AUTO) 12.6 K/uL (4.8-10.8)
[2018-06-26 06:42] LABS: ANION GAP 12.8 (8-16); CARBON DIOXIDE 25.2 mmol/L (21-32); CREATININE 0.9 mg/dL (0.6-1.3)
[2018-06-26 06:43] LABS: PHOSPHORUS 3.5 mg/dL (2.5-4.9)
[2018-06-26] MEDS: BUDESONIDE 0.5 MG/2 ML NEBU INH SCH ×2 (07:00→19:58)
--- NOTE | 2018-06-26 07:35 | NUR ---
PERIODS OF A.FLUTTER THEN SINUS RHYTHM ON TELE MONITOR THAT GOES UP TO 170's. COULD NOT FIND DR RIOJAS AND DR WEINBERG SAID HE WOULD GIVE MESSAGE TO DR RIOJAS ABOUT IT. NO ORDERS RECEIVED. ALSO, ENDORSED THIS INFORMATION TO DAY SHIFT RN WELL.
--- NOTE | 2018-06-26 07:43 | NUR ---
ENDORSED PT TO DAY SHIFT RN FOR CONTINUITY OF CARE. PT IN STABLE CONDITION.
--- NOTE | 2018-06-26 07:44 | NUR ---
RECEIVED REPORT FROM THE PUTTY MAKER NURSE AT BEDSIDE FOR CONTINUITY OF CARE. PT IS AWAKE AND ORIENTED. PT IS WEARING A NC , O2 2L. I CAN HEAR THE WHEEZING FROM STANDING NEXT TO HER. PT IS COUGHING INTERMITTENTLY. SCANT SPUTUM. NO SPUTUM SAMPLE HAS BEEN COLLECTED OF YET. UNABLE TO GIVE SAMPLE. PT AMBULATES WELL. STEADY GAIT. SKIN INTACT. IV ON R WRIST 24 G SL. V/S WITHIN NORMAL RANGE, C/O GENERALIZED PAIN, MATTHEW IN THE RIBS FROM COUGHING AND BREATHING. TACHYPNEA 32. WILL CONTINUE TO MONITOR PT.
[2018-06-26 08:00] VITALS: BP 148/88
[2018-06-26] MEDS: ASPIRIN 81 MG TAB.CHEW PO SCH (08:38)
[2018-06-26] MEDS: LACTOBACILLUS RHAMNOSUS GG 1 EACH CAP PO SCH (08:38)
[2018-06-26] MEDS: SERTRALINE 50 MG TAB PO SCH (08:39)
[2018-06-26] MEDS: MONTELUKAST SODIUM 10 MG TAB PO SCH (08:39)
[2018-06-26] MEDS: DILTIAZEM 30 MG TAB PO SCH ×2 (08:39→20:43)
[2018-06-26] MEDS: PANTOPRAZOLE 40 MG TABEC PO SCH ×2 (08:39→20:43)
[2018-06-26] MEDS: DABIGATRAN ETEXILATE MESYLAT 75 MG CAP PO SCH ×2 (08:40→20:50)
[2018-06-26] MEDS: INSULIN LANTUS 100 UNITS/ML 10 ML VIAL SUBQ SCH (08:41)
--- NOTE | 2018-06-26 11:28 | NUR ---
ABG DONE WITH NO INCIDENT. RESULTS GIVEN TO .
--- NOTE | 2018-06-26 11:50 | NUR ---
OLD IV INFILTRATED. STARTED A NEW IV ON L FA 22G. FLUSHING WELL. 1 ATTEMPT. PT TOLERATED WELL.
[2018-06-26 12:00] VITALS: BP 112/75
--- NOTE | 2018-06-26 12:02 | NUR ---
ADMINISTERED 12U OF HUMALOG PER DR GOMES FOR BS OF 415. ADMINISTERED MORPHINE FOR GENERALIZED PAIN. PT TOLERATED WELL. LUNCH IS BEING SERVED. WILL CONTINUE TO MONITOR PT.
--- NOTE | 2018-06-26 13:56 | NUR ---
FAXED CONCURRENT REVIEW TO [facility] [phone] PHONE [phone] FAXED CONCURRENT REVIEW TO [facility] [phone] PHONE OMKAR [phone]
--- NOTE | 2018-06-26 14:18 | NUR ---
PT VISITING WITH FAMILY. NC ON. NO SIGNS OF DISTRESS. NO COMPLAINTS AT THIS TIME. WILL CONTINUE TO MONITOR PT.
[2018-06-26 16:00] VITALS: BP 138/64
[2018-06-26] MEDS: LEVOFLOXACIN 750 MG/D5W PREMIX 150 ML IV SCH (17:26)
--- NOTE | 2018-06-26 19:25 | NUR ---
ENDORSED PT TO TO THE SCALE OPERATOR NURSE AT BEDSIDE FOR CONTINUITY OF CARE. PT IS IN STABLE CONDITION.
--- NOTE | 2018-06-26 19:26 | NUR ---
RECEIVED REPORT FROM DAYSHIFT NURSE AT BEDSIDE FOR CONTINUITY OF CARE. PT AAOX4. PT IV NOTED LFA 22G SALINE LOCK. NO SOB NO S/S OF DISTRESS ON 2L NC. SKIN INTACT. BED LOWERED CALL LIGHT WITHIN REACH, PT AMBULATORY. WILL CONTINUE TO MONITOR.
[2018-06-26 20:00] VITALS: BP 147/80
--- NOTE | 2018-06-26 21:28 | NUR ---
ADMIN PAIN MED 1HR AGO PT RESTING IN BED. PAIN MED EFFECTIVE WILL CONTINUE TO MONITOR.
[2018-06-26] MEDS: guaiFENesin 20 MG/ML UDC PO PRN (22:08)
--- NOTE | 2018-06-26 23:08 | NUR ---
ADMIN PAIN MED 1HR AGO PT RESTING IN BED. PAIN MED EFFECTIVE WILL CONTINUE TO MONITOR.
[2018-06-27] VITALS: BP 119/69
[2018-06-27] MEDS: MORPHINE SULFATE 2 MG/ML SYR IVP PRN ×6 (00:01→19:56)
--- NOTE | 2018-06-27 01:01 | NUR ---
ADMIN PAIN MED 1HR AGO PT RESTING IN BED. PAIN MED EFFECTIVE WILL CONTINUE TO MONITOR.
[2018-06-27] MEDS: ALBUTEROL SULFATE/IPRATROPIU 3 ML SOL IH SCH ×6 (03:18→23:36)
[2018-06-27 04:00] VITALS: BP 135/82
--- NOTE | 2018-06-27 04:35 | NUR ---
ADMIN PAIN MED 1HR AGO PT RESTING IN BED. PAIN MED EFFECTIVE WILL CONTINUE TO MONITOR.
[2018-06-27] MEDS: CLINDAMYCIN PHOS 600MG/D5W PM 50 ML IV SCH ×3 (05:35→21:25)
[2018-06-27] MEDS: methylPREDNISolone SS 125 MG/2 ML VIAL IVP SCH ×4 (05:35→17:03)
[2018-06-27] MEDS: HYDROcodone/APAP 10/325 MG 1 TAB TAB PO PRN ×4 (05:36→21:48)
[2018-06-27] MEDS: THEOPHYLLINE 80 MG/15 ML PO SCH ×3 (05:36→21:29)
[2018-06-27] MEDS: INSULIN LISPRO SLIDING SCALE 100 UNITS/ML VIAL SUBQ PRN ×4 (05:45→21:46)
[2018-06-27] MEDS: BLOOD GLUCOSE MONITORING 1 DEV DEV FS SCH ×4 (06:30→21:47)
--- NOTE | 2018-06-27 06:36 | NUR ---
ADMIN PAIN MED 1HR AGO PT RESTING IN BED. PAIN MED EFFECTIVE WILL CONTINUE TO MONITOR.
[2018-06-27] MEDS: BUDESONIDE 0.5 MG/2 ML NEBU INH SCH ×2 (07:12→20:22)
--- NOTE | 2018-06-27 07:30 | NUR ---
RECEIVED REPORT FROM NIGHTSHIFT NURSE AT BEDSIDE. PATIENT IS AAOX4. PATIENT HAS AUDIBLE WHEEZING UPON ASSESSMENT AND AN UNPRODUCTIVE COUGH. PATIENT AWARE THAT WE NEED A SPUTUM CULTURE FROM HER. PATIENT AWARE THAT SHE IS STRICT INTAKE AND OUTPUT. PATIENT ON BREATHING TREATMENTS AND RECEIVING SOLUMEDROL. PATIENT O2 SATURATION IS 98% ON 2L O2 VIA NASAL CANNULA. PATIENT HAS AN IV NOTED ON HER LEFT FOREARM 22G SL. LOWERED BED TO LOWEST SETTING. PATIENT ABLE TO AMBULATE TO RESTROOM AND BACK. WILL CONTINUE TO MONITOR PATIENT.
--- NOTE | 2018-06-27 07:30 | NUR ---
ENDORSED REPORT TO DAYSHIFT AT BEDSIDE FOR CONTINUITY OF CARE.
[2018-06-27 07:48] VITALS: BP 125/80
[2018-06-27 07:51] LABS: BASOPHILS % (AUTO) 0.1 % (0.0-2.0); HEMATOCRIT 38.4 % (36-48); HEMOGLOBIN 12.5 g/dL (12.0-16.0); LYMPHOCYTES # (AUTO) 0.7 K/uL (2.5-16.5); LYMPHOCYTES % (AUTO) 6.4 % (20.5-51.1); MEAN CORPUSCULAR HEMOGLOBIN 30 pg (27-31); MEAN CORPUSCULAR HGB CONC 33 g/dL (33-37); MEAN CORPUSCULAR VOLUME 93.1 fL (80-94); MONOCYTES # (AUTO) 0.2 K/uL (0.8-1.0); MONOCYTES % (AUTO) 1.7 % (1.7-9.3); NEUTROPHILS # (AUTO) 10.3 K/uL (1.8-7.7); NEUTROPHILS % (AUTO) 91.8 % (42.2-75.2); PLATELET COUNT (AUTO) 334 K/uL (140-450); RED BLOOD CELL COUNT(AUTO) 4.13 MIL/uL (4.20-5.40); RED CELL DISTRIBUTION WIDTH 14.8 % (11.6-13.7); WHITE BLOOD COUNT (AUTO) 11.2 K/uL (4.8-10.8)
[2018-06-27 08:11] LABS: ANION GAP 11.1 (8-16); CARBON DIOXIDE 26.8 mmol/L (21-32); POTASSIUM 4.9 mmol/L (3.5-5.1)
[2018-06-27 08:12] LABS: MAGNESIUM 1.8 mg/dL (1.8-2.4); PHOSPHORUS 2.8 mg/dL (2.5-4.9)
[2018-06-27] MEDS: LACTOBACILLUS RHAMNOSUS GG 1 EACH CAP PO SCH (08:27)
[2018-06-27] MEDS: metFORMIN 500 MG TAB PO SCH ×2 (08:27→16:27)
[2018-06-27] MEDS: PANTOPRAZOLE 40 MG TABEC PO SCH ×2 (08:28→21:28)
[2018-06-27] MEDS: DILTIAZEM 30 MG TAB PO SCH ×2 (08:28→21:26)
[2018-06-27] MEDS: MONTELUKAST SODIUM 10 MG TAB PO SCH (08:28)
[2018-06-27] MEDS: ASPIRIN 81 MG TAB.CHEW PO SCH (08:28)
[2018-06-27] MEDS: SERTRALINE 50 MG TAB PO SCH (08:28)
[2018-06-27] MEDS: INSULIN LANTUS 100 UNITS/ML 10 ML VIAL SUBQ SCH (08:38)
[2018-06-27] MEDS: DABIGATRAN ETEXILATE MESYLAT 75 MG CAP PO SCH ×2 (08:41→21:27)
--- NOTE | 2018-06-27 08:41 | NUR ---
PATIENT TOOK AM MEDICATIONS. PATIENT TOLERATED WELL.
--- NOTE | 2018-06-27 09:22 | NUR ---
PATIENT AMBULATING AROUND THE UNIT. NO DISTRESS NOTED FROM PATIENT. PATIENT TOLERATING WELL. WILL CONTINUE TO MONITOR
--- NOTE | 2018-06-27 10:42 | NUR ---
PATIENT RESTING IN BED AT THIS TIME. NO DISTRESS NOTED. WILL CONTINUE TO MONITOR PATIENT.
[2018-06-27 12:00] VITALS: BP 134/77
--- NOTE | 2018-06-27 12:45 | NUR ---
PATIENT RESTING AT THIS TIME. NO DISTRESS NOTED. WILL CONTINUE TO MONITOR
--- NOTE | 2018-06-27 14:08 | NUR ---
FAXED CONCURRENT REVIEW TO [facility] [phone] PHONE [phone] FAXED CONCURRENT REVIEW TO [facility] [phone] PHONE OMKAR [phone] [facility] [phone]
--- NOTE | 2018-06-27 14:20 | NUR ---
PATIENT RESTING AT THIS TIME. NO DISTRESS NOTED.
[2018-06-27 16:00] VITALS: BP 135/71
[2018-06-27] MEDS: LEVOFLOXACIN 750 MG/D5W PREMIX 150 ML IV SCH (16:26)
[2018-06-27] MEDS: guaiFENesin 20 MG/ML UDC PO PRN (16:37)
--- NOTE | 2018-06-27 17:00 | NUR ---
PATIENT WATCHING TELEVISION. WILL CONTINUE TO MONITOR PATIENT.
--- NOTE | 2018-06-27 19:19 | NUR ---
GAVE REPORT TO NIGHTSHIFT NURSE AT BEDSIDE. PATIENT IN STABLE CONDITION.
--- NOTE | 2018-06-27 19:20 | NUR ---
RECEIVED PT FROM OMAR ANGULO PT IS AAOX4 AMBULATORY WHEEZING MEDIC FOR ASTHMA ALREADY GIVEN ON TELMETRY SR IV ON RT FA PATENT PT IN PAIN WILL BE MEDICATED
[2018-06-27 20:00] VITALS: BP 127/71
--- NOTE | 2018-06-27 21:30 | NUR ---
BLOOD SUGAR TEST 253 COVERGE WITH HUMALOG SUBQ FOLLOW PROTOCOL
[2018-06-28] VITALS: BP 127/78
--- NOTE | 2018-06-28 | NUR ---
PT ON DEEP SLEEP SNORING ON TELMETRY SR
[2018-06-28] MEDS: methylPREDNISolone SS 125 MG/2 ML VIAL IVP SCH ×5 (01:10→23:53)
[2018-06-28] MEDS: MORPHINE SULFATE 2 MG/ML SYR IVP PRN ×5 (01:16→23:51)
[2018-06-28] MEDS: ALBUTEROL SULFATE/IPRATROPIU 3 ML SOL IH SCH ×6 (03:24→23:30)
[2018-06-28 04:00] VITALS: BP 129/60
--- NOTE | 2018-06-28 04:30 | NUR ---
SPONGE BATH GIVEN LINEN CHANGED ON TELEMETRY SR
[2018-06-28] MEDS: HYDROcodone/APAP 10/325 MG 1 TAB TAB PO PRN ×4 (05:15→20:53)
[2018-06-28] MEDS: THEOPHYLLINE 80 MG/15 ML PO SCH ×3 (05:17→21:01)
[2018-06-28] MEDS: CLINDAMYCIN PHOS 600MG/D5W PM 50 ML IV SCH ×3 (05:18→20:54)
[2018-06-28 06:14] LABS: HEMATOCRIT 36.5 % (36-48); LYMPHOCYTES # (AUTO) 0.6 K/uL (2.5-16.5); MEAN CORPUSCULAR HEMOGLOBIN 30 pg (27-31); MEAN CORPUSCULAR HGB CONC 33 g/dL (33-37); MEAN CORPUSCULAR VOLUME 92.4 fL (80-94); MONOCYTES # (AUTO) 0.3 K/uL (0.8-1.0); MONOCYTES % (AUTO) 2.7 % (1.7-9.3); NEUTROPHILS # (AUTO) 9.2 K/uL (1.8-7.7); NEUTROPHILS % (AUTO) 91.3 % (42.2-75.2); PLATELET COUNT (AUTO) 315 K/uL (140-450); RED BLOOD CELL COUNT(AUTO) 3.95 MIL/uL (4.20-5.40); RED CELL DISTRIBUTION WIDTH 14.7 % (11.6-13.7); WHITE BLOOD COUNT (AUTO) 10.1 K/uL (4.8-10.8)
[2018-06-28 06:30] LABS: ANION GAP 12.1 (8-16); CREATININE 0.8 mg/dL (0.6-1.3); POTASSIUM 4.1 mmol/L (3.5-5.1)
[2018-06-28 06:33] LABS: MAGNESIUM 1.7 mg/dL (1.8-2.4); PHOSPHORUS 3.2 mg/dL (2.5-4.9)
[2018-06-28] MEDS: BLOOD GLUCOSE MONITORING 1 DEV DEV FS SCH ×4 (06:42→21:35)
[2018-06-28] MEDS: INSULIN LISPRO SLIDING SCALE 100 UNITS/ML VIAL SUBQ PRN ×3 (06:43→21:03)
--- NOTE | 2018-06-28 06:47 | NUR ---
PT ON STABLE CONDITION RESTING ON BED ON TELEMETRY SR
[2018-06-28] MEDS: BUDESONIDE 0.5 MG/2 ML NEBU INH SCH ×2 (06:56→19:06)
--- NOTE | 2018-06-28 07:25 | NUR ---
RECEIVED PT FROM THE IN TUBE CONVERSION TECHNICIAN NURSE AT BEDSIDE FOR CONTINUITY OF CARE. PT IS AWAKE AND ORIENTED. INTRODUCED MYSELF AND UPDATED THE BOARD. PT IS SITTING UP IN BED. PER PT, JUST FINISHED BREATHING TX. PT HAS A COUGH, NON PRODUCTIVE. PT WEARING NC O2 2L. V/S WITHIN NORMAL RANGE, ST 168 ASYMPTOMATIC, AFEBRILE. RESP 24. PT AMBULATES WELL AND SKIN INTACT. LBM 06/28/18. IV ON R FA 22G SL. PT C/O PAIN. WILL MEDICATE WITH MORNING MEDS. WILL CONTINUE TO MONITOR PT.
[2018-06-28 08:00] VITALS: BP 140/82
[2018-06-28] MEDS: INSULIN LANTUS 100 UNITS/ML 10 ML VIAL SUBQ SCH (08:55)
[2018-06-28] MEDS: metFORMIN 500 MG TAB PO SCH ×2 (08:57→17:00)
[2018-06-28] MEDS: DILTIAZEM 30 MG TAB PO SCH ×2 (08:58→20:53)
[2018-06-28] MEDS: SERTRALINE 50 MG TAB PO SCH (08:59)
[2018-06-28] MEDS: LACTOBACILLUS RHAMNOSUS GG 1 EACH CAP PO SCH (08:59)
[2018-06-28] MEDS ORDERED: MAG SULF 2000 MG/WATER PREMIX 50 ML IV SCH (09:00)
[2018-06-28] MEDS: DABIGATRAN ETEXILATE MESYLAT 75 MG CAP PO SCH ×2 (09:01→21:01)
[2018-06-28] MEDS: ASPIRIN 81 MG TAB.CHEW PO SCH (09:02)
[2018-06-28] MEDS: PANTOPRAZOLE 40 MG TABEC PO SCH ×2 (09:02→20:53)
[2018-06-28] MEDS: MONTELUKAST SODIUM 10 MG TAB PO SCH (09:02)
[2018-06-28] MEDS: guaiFENesin 20 MG/ML UDC PO PRN (09:03)
--- NOTE | 2018-06-28 09:30 | NUR ---
ALL SCHEDULED MEDS GIVEN BY RN STUDENT AND INSTRUCTOR, INCLUDING MAG RIDER, PAIN MED, AND ROBITUSSIN FOR COUGH. PT TOLERATED WELL. NO SIGNS OF DISTRESS. PT AMBULATING AROUND ROOM AND IN THE HALLWAYS. WILL CONTINUE TO MONITOR PT.
--- NOTE | 2018-06-28 10:32 | NUR ---
PT REQUESTED PAIN MED. GAVE NORCO. 03/30. WILL CONTINUE TO MONITOR PT.
[2018-06-28 12:00] VITALS: BP 118/82
--- NOTE | 2018-06-28 12:15 | NUR ---
ADMINISTERED SCHEDULED MEDS. INCLUDING PAIN MED. PT TOLERATED WELL. DIDN'T LIKE HER LUNCH. CALLED [facility] FOR A SANDWICH. WILL CONTINUE TO MONITOR PT.
--- NOTE | 2018-06-28 15:05 | NUR ---
PT REQUESTED BREATHING TX AND PAIN MEDS. ADMINISTERED NORCO. PT TOLERATED WELL. Michelle DURAN/T IS HERE TO GIVE TX.
[2018-06-28 16:00] VITALS: BP 122/67
[2018-06-28] MEDS: LEVOFLOXACIN 750 MG/D5W PREMIX 150 ML IV SCH (17:00)
--- NOTE | 2018-06-28 17:10 | NUR ---
ADMINISTERED SCHEDULED MEDICATION. PT TOLERATING WELL. WILL CONTINUE TO MONITOR PT.
--- NOTE | 2018-06-28 18:31 | NUR ---
06/28/18 RD INITIAL ASSESSMENT COMPLETED PLEASE REFER TO NUTRITION ASSESSMENT UNDER CARE ACTIVITY FOR ESTIMATED NUTRITIONAL NEEDS. RD RECOMMENDATIONS: 1. RECOMMEND CONTINUE CURRENT DIET 60G CCHO 2. F/U 3-5 DAYS; MODERATE RISK TERESITA BANGURA MBA, RD
--- NOTE | 2018-06-28 19:15 | NUR ---
ENDORSED PT THE WAXING MACHINE OPERATOR NURSE AT BEDSIDE FOR CONTINUITY OF CARE. PT IS IN STABLE CONDITION. PT IS GETTING BREATHING TX, VISITING WITH DAUGHTER.
--- NOTE | 2018-06-28 19:16 | NUR ---
RECEIVED PT AWAKE SITTING ON BED, VITAL SIGNS TAKEN, ON O2 AT 2L/NC, OCCASIONAL COUGH NOTED, DENIES PAIN AT THIS TIME, PLAN OF CARE DISCUSSED, SAFETY MEASURES IN PLACE, FAMILY MEMBER AT BEDSIDE, CALL LIGHT WITHIN REACH.
[2018-06-28 20:00] VITALS: BP 143/84
--- NOTE | 2018-06-28 20:10 | NUR ---
PT SEEN AMBULATING ON THE HALLWAY WITH STEADY GAIT ACCOMPANIED BY FAMILY MEMBER, TOLERATED WELL, MONITORED CLOSELY.
--- NOTE | 2018-06-28 21:00 | NUR ---
BLOOD SUGAR CHECKED WITH 248 RESULT, COVERAGE GIVEN, DUE MEDS ADMINISTERED, ALL NEEDS ATTENDED.
[2018-06-29] VITALS: BP 152/85
--- NOTE | 2018-06-29 | NUR ---
PT AWAKE COMPLAINING OF PAIN, VITAL SIGNS STABLE, MEDICATED PRN FOR PAIN AND DUE SOLUMEDROL ADMINISTERED, CONTINUE TO MONITOR CLOSELY.
[2018-06-29 04:00] VITALS: BP 152/83
[2018-06-29] MEDS: MORPHINE SULFATE 2 MG/ML SYR IVP PRN ×6 (04:30→23:48)
[2018-06-29] MEDS: THEOPHYLLINE 80 MG/15 ML PO SCH ×3 (04:33→20:07)
[2018-06-29] MEDS: CLINDAMYCIN PHOS 600MG/D5W PM 50 ML IV SCH ×3 (04:33→18:47)
[2018-06-29] MEDS: guaiFENesin 20 MG/ML UDC PO PRN ×2 (04:39→10:34)
--- NOTE | 2018-06-29 04:40 | NUR ---
PT AWAKE SITTING ON SIDE OF BED, VITAL SIGNS TAKEN, BP SLIGHTLY ELEVATED, DENIES CHEST PAIN BUT COMPLAINING OF RIB PAIN DUE TO COUGHING, MEDICATED PRN WITH MORPHINE IVP AND COUGH MEDICINE ADMINISTERED, HOT TEA PROVIDED PER REQUEST, BREATHING TX BY RT TI, MONITORED CLOSELY.
[2018-06-29] MEDS: ALBUTEROL SULFATE/IPRATROPIU 3 ML SOL IH SCH ×6 (04:53→23:40)
[2018-06-29] MEDS: methylPREDNISolone SS 125 MG/2 ML VIAL IVP SCH ×4 (05:32→23:53)
[2018-06-29] MEDS: HYDROcodone/APAP 10/325 MG 1 TAB TAB PO PRN ×3 (05:38→14:51)
[2018-06-29] MEDS: INSULIN LISPRO SLIDING SCALE 100 UNITS/ML VIAL SUBQ PRN ×3 (05:42→17:31)
--- NOTE | 2018-06-29 06:00 | NUR ---
DUE SOLUMEDROL ADMINISTERED, BLOOD SUGAR CHECKED WITH 366 RESULT, COVERAGE GIVEN, NO RESP DISTRESS NOTED, MONITORED CLOSELY.
[2018-06-29 06:45] LABS: BASOPHILS % (AUTO) 0.1 % (0.0-2.0); HEMATOCRIT 37.2 % (36-48); HEMOGLOBIN 12.1 g/dL (12.0-16.0); LYMPHOCYTES # (AUTO) 0.6 K/uL (2.5-16.5); LYMPHOCYTES % (AUTO) 6.4 % (20.5-51.1); MEAN CORPUSCULAR HEMOGLOBIN 30 pg (27-31); MEAN CORPUSCULAR HGB CONC 33 g/dL (33-37); MEAN CORPUSCULAR VOLUME 92.6 fL (80-94); MONOCYTES # (AUTO) 0.3 K/uL (0.8-1.0); MONOCYTES % (AUTO) 2.5 % (1.7-9.3); NEUTROPHILS # (AUTO) 9.3 K/uL (1.8-7.7); PLATELET COUNT (AUTO) 340 K/uL (140-450); RED BLOOD CELL COUNT(AUTO) 4.02 MIL/uL (4.20-5.40); WHITE BLOOD COUNT (AUTO) 10.2 K/uL (4.8-10.8)
[2018-06-29] MEDS: BLOOD GLUCOSE MONITORING 1 DEV DEV FS SCH ×4 (06:47→20:46)
[2018-06-29 07:06] LABS: ALBUMIN 2.7 g/dL (3.4-5.0); ANION GAP 10.7 (8-16); CARBON DIOXIDE 28.2 mmol/L (21-32); CREATININE 0.8 mg/dL (0.6-1.3); MAGNESIUM 1.7 mg/dL (1.8-2.4); PHOSPHORUS 3.5 mg/dL (2.5-4.9); POTASSIUM 3.9 mmol/L (3.5-5.1); TOTAL BILIRUBIN 0.2 mg/dL (0.0-1.0)
--- NOTE | 2018-06-29 07:16 | NUR ---
PT SITTING ON BED GETTING BREATHING TX AT THIS TIME, NO DISTRESS NOTED, BEDSIDE REPORT GIVEN TO RN KATHYA FOR CONTINUITY OF CARE.
--- NOTE | 2018-06-29 07:17 | NUR ---
RECEIVED BEDSIDE REPORT FROM DATA WAREHOUSE CONSULTANT NURSE. PATIENT IS AWAKE, ALERT AND ORIENTEDX4. PATIENT CURRENTLY RECEIVING BREATHING TX. WHEEZING PRESENT, PRODUCTIVE COUGHT. SHE IS AMBULATORY. SKIN IS INTACT. TELE MONITOR IN PLACE. R FA 22G SL. CLEAN, DRY AND INTACT. BED IN LOW POSITION. CALL LIGHT WITHIN REACH. WILL CONTINUE TO MONITOR THE PATIENT
[2018-06-29] MEDS: BUDESONIDE 0.5 MG/2 ML NEBU INH SCH ×2 (07:35→19:31)
[2018-06-29 08:00] VITALS: BP 145/86
[2018-06-29] MEDS ORDERED: MAG SULF 2000 MG/WATER PREMIX 50 ML IV ONE (08:00)
[2018-06-29] MEDS: metFORMIN 500 MG TAB PO SCH ×2 (08:50→17:24)
[2018-06-29] MEDS: LACTOBACILLUS RHAMNOSUS GG 1 EACH CAP PO SCH (08:51)
[2018-06-29] MEDS: ASPIRIN 81 MG TAB.CHEW PO SCH (08:51)
[2018-06-29] MEDS: PANTOPRAZOLE 40 MG TABEC PO SCH ×2 (08:52→20:07)
[2018-06-29] MEDS: MONTELUKAST SODIUM 10 MG TAB PO SCH (08:53)
[2018-06-29] MEDS: SERTRALINE 50 MG TAB PO SCH (08:53)
[2018-06-29] MEDS: INSULIN LANTUS 100 UNITS/ML 10 ML VIAL SUBQ SCH (08:56)
[2018-06-29] MEDS: DABIGATRAN ETEXILATE MESYLAT 75 MG CAP PO SCH ×2 (08:56→20:09)
[2018-06-29] MEDS: DILTIAZEM 30 MG TAB PO SCH ×3 (09:00→21:00)
[2018-06-29] MEDS: MAGNESIUM SULFATE 1GM in DEXTROSE 5% 100 ML PREMIX IV SCH ×2 (09:00→10:31)
--- NOTE | 2018-06-29 09:11 | NUR ---
ADMINISTERED MEDS. PATIENT TOLERATED WELL. IV LINE IS CLEAN,DRY AND INTACT. PATIENT SITTING IN BED W NO SIGNS OF DISTRESS. WILL CONTINUE TO MONITOR THE PATIENT
--- NOTE | 2018-06-29 10:19 | NUR ---
PATIENT SITTING IN BED. NO SIGNS OF DISTRESS. BED IN LOW POSITION. CALL LIGHT WITHIN REACH. WILL CONTINUE TO MONITOR THE PATIENT
[2018-06-29] MEDS ORDERED: FUROSEMIDE 20 MG/2 ML VIAL IVP SCH (10:20)
--- NOTE | 2018-06-29 10:38 | NUR ---
ADMINISTERED MEDS. PATIENT TOLERATED WELL. WILL CONTINUE TO MONITOR THE PATIENT. DAUGHTER AT BEDSIDE
--- NOTE | 2018-06-29 11:42 | NUR ---
PATIENT SITTING ON BED. NO SIGNS OF DISTRESS W 2L NC. BED IN LOW POSITION. CALL LIGHT WITHIN REACH. WILL CONTINUE TO MONITOR
[2018-06-29 12:00] VITALS: BP 116/74
--- NOTE | 2018-06-29 13:38 | NUR ---
ADMINISTERED MEDS. PATIENT TOLERATED WELL. NO SIGNS OF DISTRESS ON 2L NC. BED IN LOW POSITION. CALL LIGHT WITHIN REACH. WILL CONTINUE TO MONITOR THE PATIENT.
--- NOTE | 2018-06-29 15:00 | NUR ---
TRIED TO GET SPUTUM, PATIENT SAID SHE IS UNABLE TO BECAUSE IT IS SO THICK. TALKED TO BILL FROM RT, HE SAID HE WILL TRY AFTER BREATHING TX.
--- NOTE | 2018-06-29 15:42 | NUR ---
PT UNABLE TO ASPIRATE SPUTUM AT THIS TIME REFUSED SXN RN AWARE CUP AT BEDSIDE
[2018-06-29 16:00] VITALS: BP 131/71
--- NOTE | 2018-06-29 16:45 | NUR ---
ADMINISTERED PRN PAIN MEDS. PATIENT TOLERATED WELL. PATIENT SITTING IN BED WATCHING TV W NO DISTRESS. WILL CONTINUE TO MONITOR THE PATIENT
--- NOTE | 2018-06-29 17:32 | NUR ---
ADMINISTERED MEDS. PATIENT TOLERATED WELL. BED IN LOW POSITION. CALL LIGHT WITHIN REACH, WILL CONTINUE TO MONITOR THE PATIENT.
--- NOTE | 2018-06-29 18:49 | NUR ---
ADMINISTERED MED. PATIENT TOLERATED WELL. IV IS CLEAN, DRY AND INTACT. DAUGHTER AT BEDSIDE
--- NOTE | 2018-06-29 19:05 | NUR ---
GAVE BEDSIDE REPORT TO TOOL GRINDER NURSE. PATIENT ENDORSED IN STABLE CONDITION
--- NOTE | 2018-06-29 19:15 | NUR ---
RECEIVED PT AWAKE ON BED TALKING TO DAUGHTER AT BEDSIDE, VITAL SIGNS STABLE, TOLERABLE RIB PAIN AT THIS TIME, NO RESP DISTRESS, INSTRUCTED TO COLLECT SPUTUM, VERBALIZED UNDERSTANDING, SPECIMEN BOTTLE AT BEDSIDE, PLAN OF CARE DISCUSS, CALL LIGHT WITHIN REACH.
--- NOTE | 2018-06-29 19:50 | NUR ---
BLOOD SUGAR CHECKED WITH 62 RESULT, SNACKS PROVIDED, WILL MEDICATE PRN FOR PAIN.
[2018-06-29 20:00] VITALS: BP 140/74
--- NOTE | 2018-06-29 20:20 | NUR ---
BLOOD SUGAR RECHECKED WITH 82 RESULT, DUE MEDS ADMINISTERED WITH EDUCATION PROVIDED, MONITORED CLOSELY.
--- NOTE | 2018-06-29 22:00 | NUR ---
SEEN PT SLEEPING, NO DISTRESS NOTED, MONITORED CLOSELY.
--- NOTE | 2018-06-29 23:50 | NUR ---
PT WITH SOB, AUDIBLE WHEEZING NOTED, BREATHING TREATMENT GIVEN BY RT, SVT ON THE MONITOR WITH HR IN THE 160'S, MEDICATED PRN FOR CHEST/RIB PAIN, PT SITTING ON BED, O2 AT 2L/NC, DUE SOLUMEDROL IVP GIVEN, MONITORED CLOSELY.
[2018-06-30] MEDS ORDERED: CLINDAMYCIN 600 MG in DEXTROSE 5% 50 ML IV SCH ×2
[2018-06-30] MEDS: CLINDAMYCIN PHOS 600MG/D5W PM 50 ML IV SCH ×5 (00:06→18:02)
[2018-06-30 00:08] VITALS: BP 126/81
--- NOTE | 2018-06-30 00:08 | NUR ---
HR WENT DOWN IN THE 90'S, SR ON THE MONITOR, PAIN TRENDING DOWN TO 7/10, SLIGHT SOB NOTED, CONTINUE TO MONITOR CLOSELY.
[2018-06-30] MEDS: DILTIAZEM 30 MG TAB PO SCH ×2 (00:30→08:31)
[2018-06-30] MEDS: HYDROcodone/APAP 10/325 MG 1 TAB TAB PO PRN ×5 (00:32→18:12)
--- NOTE | 2018-06-30 00:33 | NUR ---
PT HAD ANOTHER EPISODE OF SVT WITH HR IN THE 150-160'S, PT SEEN SITTING ON BED AND VERBALLY RESPONSIVE, DR WALKER MADE AWARE, ORDERED STAT EKG AND TROPONIN LEVEL, CARDIZEM PO GIVEN PER DR WALKER, MEDICATED PRN FOR CHEST/RIB PAIN WITH NORCO, CONTINUE ON O2 AT 2L/NC, MONITORED CLOSELY.
--- NOTE | 2018-06-30 01:30 | NUR ---
PT SEEN SLEEPING, NO SIGNS OF DISTRESS, SR ON TELE, MONITORED CLOSELY.
[2018-06-30] MEDS: MORPHINE SULFATE 2 MG/ML SYR IVP PRN ×5 (03:00→16:35)
--- NOTE | 2018-06-30 03:00 | NUR ---
PT AWAKE, COMPLAINING OF PAIN, VITAL SIGNS STABLE, SR ON TELE, NO SOB NOTED, MEDICATED PRN FOR PAIN, MONITORED CLOSELY.
[2018-06-30] MEDS: ALBUTEROL SULFATE/IPRATROPIU 3 ML SOL IH SCH ×5 (03:37→19:00)
[2018-06-30 04:00] VITALS: BP 117/75
[2018-06-30] MEDS: methylPREDNISolone SS 125 MG/2 ML VIAL IVP SCH ×3 (05:11→18:00)
[2018-06-30] MEDS: THEOPHYLLINE 80 MG/15 ML PO SCH ×2 (05:11→13:01)
[2018-06-30] MEDS ORDERED: CLINDAMYCIN 600 MG/4 ML VIAL ONE (06:09)
[2018-06-30] MEDS: INSULIN LISPRO SLIDING SCALE 100 UNITS/ML VIAL SUBQ PRN ×2 (06:17→12:19)
--- NOTE | 2018-06-30 06:20 | NUR ---
BLOOD SUGAR CHECKED WITH 365 RESULT, COVERAGE GIVEN, CLINDAMYCIN IVPB ADMINISTERED, NO RESP DISTRESS AT THIS TIME, UNABLE TO EXPECTORATE SPUTUM FOR TEST, WILL ENDORSE, CONTINUE TO MONITOR CLOSELY.
[2018-06-30] MEDS: BLOOD GLUCOSE MONITORING 1 DEV DEV FS SCH ×3 (06:50→16:56)
--- NOTE | 2018-06-30 07:24 | NUR ---
PT AWAKE, SITTING ON BED, NO DISTRESS NOTED, REPORT GIVEN TO RN WYATT FOR CONTINUITY OF CARE.
--- NOTE | 2018-06-30 07:25 | NUR ---
REPORT RECEIVED FROM PROFILER NURSE JACQUIE, PT AWAKE ALERT, JUST RETURNED FROM BATHROOM, SPEAKS CLEARLY IN FULL SENTENCES, RESP EVEN UNLABORED, AUDIBLE WHEEZING WITH FAIR AERATION, 2L NC O2, OCCASIONAL WET COUGHS, SKIN WARM DRY COLOR WNL, APPEARS IN NAD, NO C/O PAIN OR DISCOMFORT, PLAN OF CARE REVIEWED, ALL SAFETY MEASURES IN PLACE, WILL CONTINUE TO MONITOR.
[2018-06-30] MEDS: BUDESONIDE 0.5 MG/2 ML NEBU INH SCH ×2 (07:48→19:30)
[2018-06-30 08:00] VITALS: BP 136/82
[2018-06-30] MEDS: metFORMIN 500 MG TAB PO SCH ×2 (08:30→16:35)
[2018-06-30] MEDS: SERTRALINE 50 MG TAB PO SCH (08:30)
[2018-06-30] MEDS: MONTELUKAST SODIUM 10 MG TAB PO SCH (08:30)
[2018-06-30] MEDS: PANTOPRAZOLE 40 MG TABEC PO SCH (08:30)
[2018-06-30] MEDS: ASPIRIN 81 MG TAB.CHEW PO SCH (08:31)
[2018-06-30] MEDS: LACTOBACILLUS RHAMNOSUS GG 1 EACH CAP PO SCH (08:31)
[2018-06-30] MEDS: INSULIN LANTUS 100 UNITS/ML 10 ML VIAL SUBQ SCH (08:33)
[2018-06-30 09:12] LABS: HEMATOCRIT 39.1 % (36-48); HEMOGLOBIN 12.9 g/dL (12.0-16.0); LYMPHOCYTES # (AUTO) 0.6 K/uL (2.5-16.5); LYMPHOCYTES % (AUTO) 4.4 % (20.5-51.1); MEAN CORPUSCULAR HEMOGLOBIN 30 pg (27-31); MEAN CORPUSCULAR HGB CONC 33 g/dL (33-37); MEAN CORPUSCULAR VOLUME 91.9 fL (80-94); MONOCYTES # (AUTO) 0.5 K/uL (0.8-1.0); MONOCYTES % (AUTO) 3.2 % (1.7-9.3); NEUTROPHILS # (AUTO) 13.7 K/uL (1.8-7.7); NEUTROPHILS % (AUTO) 92.4 % (42.2-75.2); PLATELET COUNT (AUTO) 409 K/uL (140-450); RED BLOOD CELL COUNT(AUTO) 4.26 MIL/uL (4.20-5.40); RED CELL DISTRIBUTION WIDTH 14.5 % (11.6-13.7); WHITE BLOOD COUNT (AUTO) 14.8 K/uL (4.8-10.8)
[2018-06-30] MEDS: DABIGATRAN ETEXILATE MESYLAT 75 MG CAP PO SCH (09:31)
--- NOTE | 2018-06-30 09:45 | NUR ---
PT UP WAKING AROUND THE HALLWAY WITH STAEDY GAIT
[2018-06-30 09:49] LABS: ALBUMIN 2.9 g/dL (3.4-5.0); ANION GAP 13.7 (8-16); CARBON DIOXIDE 26.3 mmol/L (21-32); CREATININE 0.9 mg/dL (0.6-1.3); MAGNESIUM 1.9 mg/dL (1.8-2.4); PHOSPHORUS 4.4 mg/dL (2.5-4.9); TOTAL BILIRUBIN 0.2 mg/dL (0.0-1.0)
[2018-06-30] MEDS ORDERED: TIOT4MIS IH (10:33)
[2018-06-30] MEDS ORDERED: BUDE1AER IH (10:33)
--- NOTE | 2018-06-30 10:55 | NUR ---
PT C/O PAIN IN CHEST WALL, INCREASED RR, +WZ, O2 SAT 94% BP 112/86, HR 160-170 AFIB, NORCO GIVEN REQUESTED BY PT, DR RIOJAS MADE AWARE OF INCREASED HR, EKG ORDER RECEIVED, WILL CONTINUE TO MONTIOR
[2018-06-30] MEDS ORDERED: NACL 0.9% 250 ML IV SCH ×2 (11:15→13:20)
--- NOTE | 2018-06-30 11:19 | NUR ---
EKG DONE BY RT
--- NOTE | 2018-06-30 11:24 | NUR ---
PER DR RIOJAS, NS BOLUS 250ML STARTED.
[2018-06-30 12:00] VITALS: BP 133/65
--- NOTE | 2018-06-30 12:05 | NUR ---
HR NOW 117, PT RESTING QUIETLY IN NAD, DR RIOJAS AWARE NOW
[2018-06-30] MEDS ORDERED: DILTIAZEM 30 MG TAB PO SCH ×2 (14:00→18:02)
[2018-06-30] MEDS ORDERED: [UNRECOGNIZED DRUG - CODE] PO (14:33)
[2018-06-30 16:00] VITALS: BP 118/89
[2018-06-30] MEDS ORDERED: POTASSIUM CHLORIDE 10 MEQ TABER PO SCH (16:00)
--- NOTE | 2018-06-30 19:05 | NUR ---
HR NOW 86, PT RESTING QUIETLY, RESP EVEN UNLAOBRED ON RA AWARE, PT TO BE DC'D
--- NOTE | 2018-06-30 19:15 | NUR ---
RECEIVED REPORT FROM DAYSHIFT NURSE AT BEDSIDE FOR CONTINUITY OF CARE. PT AAOX4. PLAN TO BE DISCHARGE IN 20MIN WILL GET PAPER WORK READY TO SIGN. NO SOB NO S/S OF DISTRESS ON RA. BED LOWERED CALL LIGHT WITHIN REACH WILL CONTINUE TO MONITOR.
--- NOTE | 2018-06-30 19:20 | NUR ---
REPORT GIVEN TO SIMPLEX OPERATOR NURSE, PT IN STABLE CONDITION
--- NOTE | 2018-06-30 20:10 | NUR ---
PT LEFT OFF THE FLOOR ALL BELONGINGS WITH HER. D/C IV CANNULA INTACT. WALKED PT OUT OF HOSPITAL.
[2018-06-30] MEDS ORDERED: DILTIAZEM 60 MG TAB PO SCH (21:00)
== END 2018-06-30 20:20 | disposition home or self-care (01) | DRG 720 ==
LOC: MED 09:51 → MTU 14:00
PROVIDERS: ADMIT General Practice; ATTEND General Practice
DX: A41.9 Sepsis, unspecified organism (principal); J96.21 Acute and chronic respiratory failure with hypoxia; J69.0 Pneumonitis due to inhalation of food and vomit; E11.42 Type 2 diabetes mellitus with diabetic polyneuropathy; E44.0 Moderate protein-calorie malnutrition; E11.65 Type 2 diabetes mellitus with hyperglycemia; I48.91 Unspecified atrial fibrillation; E83.42 Hypomagnesemia; E86.0 Dehydration; G56.03 Carpal tunnel syndrome, bilateral upper limbs; J44.0 Chronic obstructive pulmonary disease with (acute) lower respiratory infection; J44.1 Chronic obstructive pulmonary disease with (acute) exacerbation; K21.9 Gastro-esophageal reflux disease without esophagitis; F41.9 Anxiety disorder, unspecified; I10 Essential (primary) hypertension; J20.9 Acute bronchitis, unspecified; T38.0X5A Adverse effect of glucocorticoids and synthetic analogues, initial encounter; E87.6 Hypokalemia; E87.1 Hypo-osmolality and hyponatremia; Z86.718 Personal history of other venous thrombosis and embolism; Z87.891 Personal history of nicotine dependence; Z91.14 Patient's other noncompliance with medication regimen; Z99.81 Dependence on supplemental oxygen; Z88.1 Allergy status to other antibiotic agents; Z88.0 Allergy status to penicillin; Z88.8 Allergy status to other drugs, medicaments and biological substances; Z79.4 Long term (current) use of insulin; Z79.82 Long term (current) use of aspirin; Z79.899 Other long term (current) drug therapy; Z90.49 Acquired absence of other specified parts of digestive tract; Z83.3 Family history of diabetes mellitus; Z82.49 Family history of ischemic heart disease and other diseases of the circulatory system; Z91.19 Patient's noncompliance with other medical treatment and regimen; Q61.02 Congenital multiple renal cysts; Y92.89 Other specified places as the place of occurrence of the external cause; Z68.28 Body mass index [BMI] 28.0-28.9, adult
CPT/HCPCS: 36415; 71045; 71275; 74018; 76770; 80048; 80053; 80198; 80305; 81001; 82948; 83036; 83605; 83690; 83735; 83880; 84100; 84134; 84443; 84484; 85025; 85379; 85610; 85730; 87040; 87081; 87086; 93005; 93970; 94640; 96361; 96365; 96375; 96376; 99285; J1580; J1815; J1885; J1940; J1956; J2270; J2405; J2930; J3475; J3490; J7030; J7060; J7613; J7620; J7626; J7644; Q0092; Q9967

== ENCOUNTER 2018-10-03 12:50 | Inpatient (IN) | payer OTHER ==
[~2018-10-03] VITALS: Ht 157.5 cm; Wt 68.0 kg
[~2018-10-03 12:50] MED LIST changes: +ACET-787 PO; -ALBU3SOL28 IH; +ATRMDI INH; -AZIT250T4 PO; +BUDE1AER IH; -FLUT1DSK2 IH; -METH4TAB1 PO; +MONT10TA35 PO; -PRED20TA6 PO; +ROFL250T PO; +SERT50TA PO; +TIOT4MIS IH; +[UNRECOGNIZED DRUG - CODE] PO
[2018-10-03 12:56] VITALS: BP 163/104
[2018-10-03] MEDS ORDERED: LEVOFLOXACIN 750 MG/D5W PREMIX 150 ML IV ONE (14:00)
[2018-10-03] MEDS ORDERED: IPRATROPIUM 0.02% 0.5 MG/2.5 ML NEBU INH ONE (14:00)
[2018-10-03] MEDS ORDERED: ALBUTEROL 0.083% 2.5 MG/3 ML NEBU INH ONE (14:00)
[2018-10-03] MEDS ORDERED: methylPREDNISolone SS 125 MG/2 ML VIAL IVP ONE (14:00)
[2018-10-03 14:31] LABS: BASOPHILS # (AUTO) 0.1 K/uL (0.00-0.22); BASOPHILS % (AUTO) 0.7 % (0.0-2.0); EOSINOPHILS # (AUTO) 0.1 K/uL (0-0.4); EOSINOPHILS % (AUTO) 0.6 % (0.0-4.0); HEMATOCRIT 42.8 % (36-48); HEMOGLOBIN 13.8 g/dL (12.0-16.0); LYMPHOCYTES # (AUTO) 1.9 K/uL (2.5-16.5); LYMPHOCYTES % (AUTO) 21.7 % (20.5-51.1); MEAN CORPUSCULAR HEMOGLOBIN 30 pg (27-31); MEAN CORPUSCULAR HGB CONC 32 g/dL (33-37); MEAN CORPUSCULAR VOLUME 92.6 fL (80-94); MONOCYTES # (AUTO) 0.4 K/uL (0.8-1.0); MONOCYTES % (AUTO) 4.5 % (1.7-9.3); NEUTROPHILS # (AUTO) 6.2 K/uL (1.8-7.7); NEUTROPHILS % (AUTO) 72.5 % (42.2-75.2); PLATELET COUNT (AUTO) 286 K/uL (140-450); RED BLOOD CELL COUNT(AUTO) 4.62 MIL/uL (4.20-5.40); RED CELL DISTRIBUTION WIDTH 14.9 % (11.6-13.7); WHITE BLOOD COUNT (AUTO) 8.6 K/uL (4.8-10.8)
[2018-10-03 14:49] LABS: ANION GAP 15.8 (8-16); CARBON DIOXIDE 25.7 mmol/L (21-32); CREATININE 0.8 mg/dL (0.6-1.3); POTASSIUM 4.5 mmol/L (3.5-5.1)
[2018-10-03] MEDS ORDERED: NACL 0.9% 1,000 ML IV ONE (15:05)
[2018-10-03 15:11] LABS: ALBUMIN 3.7 g/dL (3.4-5.0); TOTAL BILIRUBIN 0.2 mg/dL (0.0-1.0)
[2018-10-03 15:12] LABS: APPEARANCE,URINE CLEAR (CLEAR); BILIRUBIN,URINE NEGATIVE (NEGATIVE); BLOOD, URINE 2+ (NEGATIVE); COLOR,URINE YELLOW (YELLOW); LEUKOCYTE ESTERASE ,URINE NEGATIVE (NEGATIVE); NITRITE, URINE NEGATIVE (NEGATIVE); UGLUCOSE 3+ (NEGATIVE)
[2018-10-03 15:18] LABS: PROTHROMBIN TIME 9.3 secs (10.8-13.4)
[2018-10-03 15:33] LABS: MAGNESIUM 1.8 mg/dL (1.8-2.4); THYROID STIMULATING HORMONE 2.18 uIU/mL (0.34-3.74)
[2018-10-03 15:38] LABS: CALCIUM OXALATE CRYSTALS,UR 0-10 /HPF (None Seen); RBC,URINE 3-10 (FEW) /HPF (0-5); WBC,URINE 0-5 (RARE) /HPF (0-5)
[2018-10-03] MEDS ORDERED: MORPHINE SULFATE 4 MG/ML SYR IVP ONE (16:00)
[2018-10-03] MEDS ORDERED: methylPREDNISolone SS 40 MG in WATER STERILE 1 ML IV ONE (16:15)
[2018-10-03] MEDS ORDERED: HYDROcodone/APAP 5/325 MG 1 TAB TAB PO PRN ×2 (16:15→19:00)
[2018-10-03] MEDS ORDERED: LORazepam 2 MG/ML VIAL IVP PRN ×2 (16:15→19:00)
[2018-10-03] MEDS ORDERED: ACETAMINOPHEN 325 MG TAB PO PRN ×2 (16:15→19:00)
[2018-10-03 18:00] VITALS: BP 149/86
[2018-10-03] MEDS ORDERED: guaiFENesin/CODEINE 100/10MG 5 ML UDC PO PRN (18:55)
[2018-10-03] MEDS ORDERED: HYDROcodone/APAP 10/325 MG 1 TAB TAB PO PRN (18:55)
[2018-10-03] MEDS ORDERED: IPRATROPIUM 0.02% 0.5 MG/2.5 ML NEBU INH SCH (18:55)
[2018-10-03] MEDS ORDERED: NON-FORMULARY ITEM (Lorazepam (Ativan) 1 TAB) PO PRN (18:55)
[2018-10-03] MEDS ORDERED: ALBUTEROL HFA MDI 90 MCG/ACTUATION 8 GM INH SCH (18:55)
[2018-10-03] MEDS ORDERED: DEXT 5% /NACL 0.9% 1,000 ML IV SCH (19:00)
[2018-10-03] MEDS ORDERED: ONDANSETRON 4 MG/2 ML VIAL IVP PRN (19:00)
[2018-10-03] MEDS: BUDESONIDE 0.5 MG/2 ML NEBU INH SCH (19:13)
[2018-10-03] MEDS: ALBUTEROL SULFATE/IPRATROPIU 3 ML SOL IH SCH ×2 (19:18→23:00)
[2018-10-03 20:00] VITALS: BP 136/68
[2018-10-03] MEDS: AZITHROMYCIN 500 MG in DEXTROSE 5% 250 ML IV SCH (20:44)
[2018-10-03] MEDS: MONTELUKAST SODIUM 10 MG TAB PO SCH (20:45)
[2018-10-03] MEDS: PANTOPRAZOLE 40 MG TABEC PO SCH (20:45)
[2018-10-03] MEDS: DABIGATRAN ETEXILATE MESYLAT 75 MG CAP PO SCH (20:47)
[2018-10-03] MEDS ORDERED: ZOLPIDEM 5 MG TAB PO SCH (21:00)
[2018-10-03] MEDS ORDERED: NON-FORMULARY ITEM (Budesonide/Formoterol Fumarate* (Symbicort 160-4.5 Mcg Inhaler*) 2 PUF IH SCH (21:00)
[2018-10-03] MEDS ORDERED: ZOLPIDEM 5 MG TAB PO PRN (21:00)
[2018-10-03] MEDS ORDERED: NON-FORMULARY ITEM (Insulin Glargine,Hum.rec.anlog (Lantus Solostar) 20 UNIT) SUBQ SCH (21:00)
[2018-10-03] MEDS: metFORMIN 500 MG TAB PO SCH (21:12)
[2018-10-03] MEDS: BLOOD GLUCOSE MONITORING 1 DEV DEV FS SCH (21:42)
[2018-10-03] MEDS: INSULIN LANTUS 100 UNITS/ML 10 ML VIAL SUBQ SCH (21:44)
[2018-10-03] MEDS: INSULIN LISPRO SLIDING SCALE 100 UNITS/ML VIAL SUBQ PRN (21:50)
[2018-10-03 22:00] VITALS: BP 98/53
[2018-10-03] MEDS ORDERED: LORazepam 1 MG TAB PO PRN (22:15)
[2018-10-03] MEDS: NACL 0.9% 1,000 ML IV SCH (22:34)
[2018-10-04] VITALS (8 sets, daily range): BP systolic 107–155; BP diastolic 53–97
[2018-10-04] MEDS ORDERED: IPRATROPIUM BROMIDE INH SCH
[2018-10-04] MEDS: INSULIN LISPRO SLIDING SCALE 100 UNITS/ML VIAL SUBQ PRN ×4 (00:16→20:59)
[2018-10-04] MEDS: ALBUTEROL 0.083% 2.5 MG/3 ML NEBU INH PRN ×2 (00:43→05:09)
[2018-10-04] MEDS: ALBUTEROL SULFATE/IPRATROPIU 3 ML SOL IH SCH ×6 (03:00→22:38)
[2018-10-04] MEDS ORDERED: methylPREDNISolone SS 40 MG/ML VIAL IVP SCH (05:00)
[2018-10-04] MEDS ORDERED: HYDROcodone/APAP 10/325 MG 1 TAB TAB PO PRN (05:50)
[2018-10-04] MEDS ORDERED: HYDROcodone/APAP 10/325 MG 1 TAB TAB ONE (06:05)
[2018-10-04 07:02] LABS: BASOPHILS % (AUTO) 0.2 % (0.0-2.0); EOSINOPHILS % (AUTO) 0.1 % (0.0-4.0); HEMOGLOBIN 13.2 g/dL (12.0-16.0); LYMPHOCYTES % (AUTO) 20.8 % (20.5-51.1); MEAN CORPUSCULAR HEMOGLOBIN 30 pg (27-31); MEAN CORPUSCULAR HGB CONC 32 g/dL (33-37); MONOCYTES # (AUTO) 0.5 K/uL (0.8-1.0); MONOCYTES % (AUTO) 5.4 % (1.7-9.3); NEUTROPHILS # (AUTO) 7.1 K/uL (1.8-7.7); NEUTROPHILS % (AUTO) 73.5 % (42.2-75.2); PLATELET COUNT (AUTO) 301 K/uL (140-450); RED BLOOD CELL COUNT(AUTO) 4.41 MIL/uL (4.20-5.40); RED CELL DISTRIBUTION WIDTH 14.9 % (11.6-13.7); WHITE BLOOD COUNT (AUTO) 9.7 K/uL (4.8-10.8)
[2018-10-04] MEDS: BUDESONIDE 0.5 MG/2 ML NEBU INH SCH ×2 (07:39→19:40)
[2018-10-04 07:47] LABS: ALBUMIN 3.9 g/dL (3.4-5.0); ANION GAP 15.5 (8-16); CARBON DIOXIDE 25.4 mmol/L (21-32); CREATININE 0.7 mg/dL (0.6-1.3); MAGNESIUM 1.8 mg/dL (1.8-2.4); PHOSPHORUS 3.1 mg/dL (2.5-4.9); POTASSIUM 3.9 mmol/L (3.5-5.1); TOTAL BILIRUBIN 0.4 mg/dL (0.0-1.0)
[2018-10-04] MEDS: BLOOD GLUCOSE MONITORING 1 DEV DEV FS SCH ×4 (07:47→20:50)
[2018-10-04] MEDS ORDERED: TIOTROPIUM BROMIDE 2.5 MCG IH SCH (09:00)
[2018-10-04] MEDS ORDERED: ROFLUMILAST 500 MCG PO SCH (09:00)
[2018-10-04] MEDS: PANTOPRAZOLE 40 MG TABEC PO SCH ×2 (09:12→20:19)
[2018-10-04] MEDS: metFORMIN 500 MG TAB PO SCH ×2 (09:12→20:15)
[2018-10-04] MEDS: ASPIRIN 81 MG TAB.CHEW PO SCH (09:12)
[2018-10-04] MEDS: SERTRALINE 50 MG TAB PO SCH (09:13)
[2018-10-04] MEDS: methylPREDNISolone SS 40 MG/ML VIAL IVP SCH ×2 (09:14→20:15)
[2018-10-04] MEDS: DABIGATRAN ETEXILATE MESYLAT 75 MG CAP PO SCH ×2 (09:22→20:17)
[2018-10-04] MEDS: HYDROcodone/APAP 10/325 MG 1 TAB TAB PO PRN ×4 (09:26→20:18)
[2018-10-04] MEDS ORDERED: DILTIAZEM 60 MG TAB PO SCH (09:30)
[2018-10-04] MEDS: NACL 0.9% 1,000 ML IV SCH (16:13)
[2018-10-04] MEDS: DILTIAZEM 60 MG TAB PO SCH (20:18)
[2018-10-04] MEDS: MONTELUKAST SODIUM 10 MG TAB PO SCH (20:19)
[2018-10-04] MEDS ORDERED: AZITHROMYCIN 500 MG INJ VIAL IV ONE ×2 (20:34)
[2018-10-04] MEDS: AZITHROMYCIN 500 MG in DEXTROSE 5% 250 ML IV SCH ×2 (20:35→20:43)
[2018-10-04] MEDS: INSULIN LANTUS 100 UNITS/ML 10 ML VIAL SUBQ SCH (20:52)
[2018-10-05 00:12] VITALS: BP 145/67
[2018-10-05] MEDS: HYDROcodone/APAP 10/325 MG 1 TAB TAB PO PRN ×5 (00:15→17:14)
[2018-10-05] MEDS ORDERED: INSULIN LANTUS 100 UNITS/ML 10 ML VIAL SUBQ SCH ×2 (01:45→21:00)
[2018-10-05] MEDS: ALBUTEROL SULFATE/IPRATROPIU 3 ML SOL IH SCH ×4 (03:15→15:58)
[2018-10-05] MEDS: BLOOD GLUCOSE MONITORING 1 DEV DEV FS SCH ×2 (03:26→05:50)
[2018-10-05] MEDS: INSULIN LISPRO SLIDING SCALE 100 UNITS/ML VIAL SUBQ PRN ×4 (03:27→17:12)
[2018-10-05 04:25] VITALS: BP 127/69
[2018-10-05] MEDS: BUDESONIDE 0.5 MG/2 ML NEBU INH SCH (07:53)
[2018-10-05 08:00] VITALS: BP 137/65
[2018-10-05] MEDS: DABIGATRAN ETEXILATE MESYLAT 75 MG CAP PO SCH (09:24)
[2018-10-05] MEDS: ASPIRIN 81 MG TAB.CHEW PO SCH (09:25)
[2018-10-05] MEDS: PANTOPRAZOLE 40 MG TABEC PO SCH (09:25)
[2018-10-05] MEDS: SERTRALINE 50 MG TAB PO SCH (09:25)
[2018-10-05] MEDS: metFORMIN 500 MG TAB PO SCH (09:26)
[2018-10-05] MEDS: DILTIAZEM 60 MG TAB PO SCH (09:27)
[2018-10-05] MEDS: methylPREDNISolone SS 40 MG/ML VIAL IVP SCH (10:59)
[2018-10-05 12:00] VITALS: BP 113/57
[2018-10-05] MEDS ORDERED: AZIT250T11 PO (15:49)
[2018-10-05] MEDS ORDERED: PRED1TAB2 PO (15:51)
[2018-10-05] MEDS ORDERED: PRED20TA5 PO ×2 (15:51→15:52)
[2018-10-05] MEDS ORDERED: PRED10TA5 PO (15:53)
[2018-10-05] MEDS ORDERED: GUAI100S51 PO (15:56)
[2018-10-05 16:00] VITALS: BP 132/68
== END 2018-10-05 18:15 | disposition home or self-care (01) | DRG 133 ==
LOC: MED 12:50 → MIC 16:50 → MTU 10-04 09:50
PROVIDERS: ADMIT Preventive Medicine Preventive Medicine/Occupational Environmental Medicine; ATTEND Preventive Medicine Preventive Medicine/Occupational Environmental Medicine
DX: J96.00 Acute respiratory failure, unspecified whether with hypoxia or hypercapnia (principal); J44.1 Chronic obstructive pulmonary disease with (acute) exacerbation; J45.902 Unspecified asthma with status asthmaticus; J45.901 Unspecified asthma with (acute) exacerbation; I48.91 Unspecified atrial fibrillation; J44.0 Chronic obstructive pulmonary disease with (acute) lower respiratory infection; I11.9 Hypertensive heart disease without heart failure; K21.9 Gastro-esophageal reflux disease without esophagitis; J20.9 Acute bronchitis, unspecified; E11.9 Type 2 diabetes mellitus without complications; M81.0 Age-related osteoporosis without current pathological fracture; F32.9 Major depressive disorder, single episode, unspecified; F41.9 Anxiety disorder, unspecified; G47.00 Insomnia, unspecified; Z88.1 Allergy status to other antibiotic agents; Z88.0 Allergy status to penicillin; Z88.8 Allergy status to other drugs, medicaments and biological substances; Z79.899 Other long term (current) drug therapy; Z79.82 Long term (current) use of aspirin; Z79.84 Long term (current) use of oral hypoglycemic drugs; Z87.891 Personal history of nicotine dependence; Z83.3 Family history of diabetes mellitus; Z82.49 Family history of ischemic heart disease and other diseases of the circulatory system; E78.5 Hyperlipidemia, unspecified
CPT/HCPCS: 36415; 36600; 71045; 80053; 81001; 82803; 82948; 83605; 83690; 83735; 83880; 84100; 84443; 84484; 85025; 85610; 85730; 87040; 87081; 87086; 94003; 94640; 96365; 96375; 99285; J0456; J1815; J1956; J2270; J2920; J2930; J7030; J7042; J7060; J7613; J7620; J7626; J7644; Q0092

== ENCOUNTER 2018-12-19 08:31 | Emergency (ER) | payer OTHER ==
[~2018-12-19] VITALS: Ht 160 cm; Wt 69.4 kg
[~2018-12-19 08:31] MED LIST changes: +ASPI-1718 PO; -ASPI81CT89 PO; +GUAI-1094 PO; +PRED10TA5 PO; +PRED1TAB2 PO; +PRED20TA5 PO
[2018-12-19 08:35] VITALS: BP 159/89
--- NOTE | 2018-12-19 08:54 | NUR ---
63 YO F BIB SELF W/ C/O UTI SYMPTOMS SINCE LAST NIGHT. FREQUENCY, DYSURIA, SUPRAPUBIC TENDERNESS, RIGHT FLANK PAIN AND HEMATURIA. DENIES N/V/D/FEVERS. AAOX4. PT DENIES N/V/D; SKIN IS INTACT, PINK/WARM/DRY; LUNGS CLEAR BL, BREATHING UNLABORED; HR EVEN AND REGULAR, BL PERIPHERAL PULSES PRESENT; BS ACTIVE X4, NO TENDERNESS TO PALPATION, NO HEPATOSPLENOMEGALLY PALPATED, RESONANT TO PERCUSSION; PT DENIES ANY FEVER, CP, SOB, OR COUGH AT THIS TIME; PT STATES 9/10 PAIN AT THIS TIME; VSS; PATIENT POSITIONED FOR COMFORT; HOB ELEVATED; BEDRAILS UP X2; BED DOWN. HX ON FILE RX NO CHANGES SINCE LAST VISIT
--- NOTE | 2018-12-19 10:00 | NUR ---
Patient being evaluated by physician at bedside.
[2018-12-19 10:52] VITALS: BP 135/81
--- NOTE | 2018-12-19 10:52 | NUR ---
Patient discharged with v/s stable. Written and verbal after care instructions given and explained. Patient alert, oriented and verbalized understanding of instructions. Ambulatory with steady gait. All questions addressed prior to discharge. ID band removed. Patient advised to follow up with PMD. Rx of PYRIDIUM AND CIPRO given. Patient educated on indication of medication including possible reaction and side effects. Opportunity to ask questions provided and answered.
== END 2018-12-19 10:52 | disposition home or self-care (01) ==
LOC: MED 08:31
DX: N39.0 Urinary tract infection, site not specified (principal); R31.9 Hematuria, unspecified; J44.9 Chronic obstructive pulmonary disease, unspecified; E11.9 Type 2 diabetes mellitus without complications; K21.9 Gastro-esophageal reflux disease without esophagitis; I10 Essential (primary) hypertension; Z90.49 Acquired absence of other specified parts of digestive tract; Z98.890 Other specified postprocedural states; I48.91 Unspecified atrial fibrillation; Z79.82 Long term (current) use of aspirin; Z79.4 Long term (current) use of insulin; Z88.0 Allergy status to penicillin; Z88.1 Allergy status to other antibiotic agents; Z88.8 Allergy status to other drugs, medicaments and biological substances; Z79.899 Other long term (current) drug therapy
CPT/HCPCS: 81002; 99283

== ENCOUNTER 2018-12-30 20:00 | Inpatient (IN) | payer OTHER ==
[~2018-12-30] VITALS: Ht 157.5 cm; Wt 68.5 kg
[2018-12-30 20:10] VITALS: BP 130/84
--- NOTE | 2018-12-30 20:19 | NUR ---
PT AMBULATED TO THE RESROOM.
--- NOTE | 2018-12-30 21:48 | NUR ---
PT AMBULATED TO BED 12
[2018-12-30] MEDS ORDERED: NACL 0.9% 500 ML IV SCH (22:11)
[2018-12-30] MEDS ORDERED: methylPREDNISolone SS 125 MG/2 ML VIAL IVP ONE (22:15)
[2018-12-30] MEDS ORDERED: NACL 0.9% 1,000 ML IV ONE (22:15)
[2018-12-30] MEDS ORDERED: ALBUTEROL SULFATE/IPRATROPIU 3 ML SOL IH ONE ×2 (22:15→23:25)
[2018-12-30] MEDS ORDERED: MAG SULF 2000 MG/WATER PREMIX 50 ML IV ONE (22:15)
--- NOTE | 2018-12-30 22:30 | NUR ---
PATIENT REFUSED ABG, DR. NOLAN IS NOTED
[2018-12-30 22:42] LABS: BASOPHILS # (AUTO) 0.1 K/uL (0.00-0.22); BASOPHILS % (AUTO) 0.6 % (0.0-2.0); EOSINOPHILS # (AUTO) 0.1 K/uL (0-0.4); EOSINOPHILS % (AUTO) 0.8 % (0.0-4.0); HEMATOCRIT 38.3 % (36-48); HEMOGLOBIN 12.7 g/dL (12.0-16.0); LYMPHOCYTES # (AUTO) 1.3 K/uL (2.5-16.5); LYMPHOCYTES % (AUTO) 10.9 % (20.5-51.1); MEAN CORPUSCULAR HEMOGLOBIN 30 pg (27-31); MEAN CORPUSCULAR HGB CONC 33 g/dL (33-37); MONOCYTES # (AUTO) 0.5 K/uL (0.8-1.0); MONOCYTES % (AUTO) 3.9 % (1.7-9.3); NEUTROPHILS # (AUTO) 10.4 K/uL (1.8-7.7); NEUTROPHILS % (AUTO) 83.8 % (42.2-75.2); PLATELET COUNT (AUTO) 393 K/uL (140-450); RED CELL DISTRIBUTION WIDTH 14.4 % (11.6-13.7); WHITE BLOOD COUNT (AUTO) 12.4 K/uL (4.8-10.8)
[2018-12-30 22:54] LABS: ANION GAP 14.1 (8-16); CARBON DIOXIDE 25.7 mmol/L (21-32); CREATININE 0.8 mg/dL (0.6-1.3); POTASSIUM 3.8 mmol/L (3.5-5.1)
[2018-12-30 23:00] LABS: ALBUMIN 3.3 g/dL (3.4-5.0); TOTAL BILIRUBIN 0.5 mg/dL (0.0-1.0)
[2018-12-30 23:10] LABS: PROTHROMBIN TIME 9.2 secs (10.8-13.4)
[2018-12-30] MEDS ORDERED: KETOROLAC 30 MG/ML VIAL IVP ONE (23:25)
[2018-12-30 23:35] LABS: APPEARANCE,URINE CLOUDY (CLEAR); BILIRUBIN,URINE NEGATIVE (NEGATIVE); BLOOD, URINE 2+ (NEGATIVE); COLOR,URINE YELLOW (YELLOW); LEUKOCYTE ESTERASE ,URINE 3+ (NEGATIVE); NITRITE, URINE POSITIVE (NEGATIVE); PH,URINE 5.5 (5.0-9.0); UGLUCOSE NEGATIVE (NEGATIVE)
[2018-12-30 23:53] LABS: RBC,URINE TOO NUMEROUS TO COUN /HPF (0-5); WBC,URINE TOO MANY TO COUNT /HPF (0-5)
[2018-12-31] MEDS ORDERED: ACETAMINOPHEN 325 MG TAB PO PRN
[2018-12-31] MEDS ORDERED: DOCUSATE SODIUM 100 MG GELCAP PO PRN
[2018-12-31] MEDS ORDERED: ALBUTEROL SULFATE/IPRATROPIU 3 ML SOL IH PRN
[2018-12-31] MEDS ORDERED: ONDANSETRON 4 MG/2 ML VIAL IM/IVP PRN
[2018-12-31] MEDS ORDERED: HYDROcodone/APAP 7.5/325 MG 1 TAB PO PRN
[2018-12-31 00:27] LABS: BARBITURATE, URINE NEG. ng/ml (NEG <=200); BENZODIAZEPINE, URINE NEG. ng/mL (NEG <=200); CANNABINOID, URINE NEG. ng/mL (NEG <=50); COCAINE, URINE NEG. ng/mL (NEG <=300); OPIATE, URINE POS. ng/mL (NEG <=2000); PHENCYCLIDINE SCREEN,URINE NEG. ng/mL (NEG <=25)
[2018-12-31 00:36] LABS: MAGNESIUM 1.4 mg/dL (1.8-2.4); PHOSPHORUS 3.9 mg/dL (2.5-4.9); THYROID STIMULATING HORMONE 3.25 uIU/mL (0.34-3.74)
[2018-12-31 00:45] VITALS: BP 130/90
--- NOTE | 2018-12-31 00:45 | NUR ---
Admited to [facility]. PT TAKEN TO ROOM 112-B. Belongings list completed. Report GIVEN TO ADELE WORLEY.
--- NOTE | 2018-12-31 00:45 | NUR ---
RECEIVED BEDSIDE REPORT FROM ADELE MONAE, PATIENT AAOX4, STEADY GAIT, SKIN INTACT, V/S TAKEN O2SAT 94% ON 2 L NC. V/S TAKEN, MRSA SCREEN COLLECTED. IV IN LEFT AC 2O G PATENT. EXPLAINED PLAN OF CARE. ASKED ADMISSION QUESTIONS, ORIENTATED TO ROOM, BED IN LOWEST POSITION, WILL CONTINUE TO MONITOR.
[2018-12-31] MEDS: MORPHINE SULFATE 2 MG/ML SYR IVP PRN ×6 (01:08→20:57)
--- NOTE | 2018-12-31 01:08 | NUR ---
PATIENT C/O PAIN 8/10 GAVE MORPHINE. STARTED IV FLUID NS AT 100 ML.
[2018-12-31] MEDS ORDERED: TIZA4CAP PO (01:25)
[2018-12-31] MEDS ORDERED: [UNRECOGNIZED DRUG - CODE] PO (01:25)
[2018-12-31] MEDS ORDERED: INSU10SU2 SC (01:25)
[2018-12-31] MEDS: NACL 0.9% 1,000 ML IV SCH ×3 (01:26→22:16)
[2018-12-31] MEDS ORDERED: HYDROcodone/APAP 10/325 MG 1 TAB TAB PO PRN (01:35)
[2018-12-31] MEDS ORDERED: PRED20TA5 PO (01:36)
[2018-12-31] MEDS ORDERED: SERT50TA PO (01:41)
[2018-12-31] MEDS ORDERED: MAG SULF 2000 MG/WATER PREMIX 50 ML IV ONE (01:45)
[2018-12-31] MEDS ORDERED: AZITHROMYCIN 500 MG in DEXTROSE 5% 250 ML IV SCH (01:45)
[2018-12-31] MEDS ORDERED: DEXTROSE 50% 50 ML SYR IVP PRN (01:50)
--- NOTE | 2018-12-31 02:33 | NUR ---
STARTED MG RIDER. EXPLAINED NEED OF SPUTUM CULTURE, PATIENT STATED SHE CANT COUGH UP ANYTHING RIGHT NOW. LEFT COLLECTION CONTAINER AT BEDSIDE.
--- NOTE | 2018-12-31 04:09 | NUR ---
GAVE DUE SOLU-MEDROL.
[2018-12-31] MEDS ORDERED: methylPREDNISolone SS 125 MG/2 ML VIAL IVP SCH (05:00)
--- NOTE | 2018-12-31 05:14 | NUR ---
PATIENT AMBULATED TO RESTROOM, STEADY GAIT, NO BM NOTED. IV INFUSING NS AT 100 ML/HR.
--- NOTE | 2018-12-31 05:27 | NUR ---
COLLECTED INFLUENZA SWAB AND SENT TO LAB.
[2018-12-31] MEDS ORDERED: INSULIN LISPRO 100 UNITS/ML VIAL SUBQ ONE (05:45)
[2018-12-31] MEDS: BLOOD GLUCOSE MONITORING 1 DEV DEV FS SCH ×4 (05:51→20:45)
--- NOTE | 2018-12-31 05:59 | NUR ---
BLOOD GLUCOSE 416, SPOKE WITH DR ALVARADO, ORDERS FOR 12 UNITS HUMALOG. GAVE 12 UNITS. WILL REASSESS.
--- NOTE | 2018-12-31 06:28 | NUR ---
REASSESSED BG 448. SPOKE WITH DR ALVARADO, ORDER FOR LANTUS 20 UNITS NOW. WILL PUT IN ORDER. DR AWARE OF LANTUS 20 UNITS DUE AT 0900. WILL CONTINUE TO MONITOR PATIENT.
[2018-12-31] MEDS ORDERED: INSULIN LANTUS 100 UNITS/ML 10 ML VIAL SUBQ SCH ×3 (06:30→18:15)
[2018-12-31] MEDS: ALBUTEROL SULFATE/IPRATROPIU 3 ML SOL IH SCH ×3 (06:50→19:19)
[2018-12-31 06:51] LABS: CARBON DIOXIDE 21.2 mmol/L (21-32); CREATININE 1.1 mg/dL (0.6-1.3); POTASSIUM 4.2 mmol/L (3.5-5.1)
[2018-12-31 06:55] LABS: CHOL/HDL RATIO 2.9 (1-4.5); MAGNESIUM 2.9 mg/dL (1.8-2.4)
--- NOTE | 2018-12-31 07:29 | NUR ---
ENDORSED PATIENT TO DAY SHIFT NURSE, PATIENT STABLE.
--- NOTE | 2018-12-31 07:30 | NUR ---
RECEIVED REPORT FROM PM NURSE AT BED-SIDE. PT SITTING ON HER BED. HAS O2 VIA NC. NO SOB NOTED AT THIS TIME. UPDATED BOARD AND INTRODUCED SELF. HAS IVF INFUSING WELL. PT IS ON FALL RISK. SPUTUM NEEDS TO BE COLLECTED. CALL LIGHT WITHIN PT REACH. NO SIGN OF DISTRESS NOTED AT THIS TIME. PER PM NURSE PT BS 434 THIS AM AFTER ADMINISTERING LANTUS. WILL CONTINUE MONITORING PT BLOOD SUGAR. WILL CONTINUE TO MONITOR PT.
[2018-12-31 08:00] VITALS: BP 114/66
--- NOTE | 2018-12-31 08:29 | NUR ---
PATIENT HAS BEEN SCREENED AND CATEGORIZED MODERATE NUTRITION RISK. PATIENT WILL BE SEEN WITHIN 3-5 DAYS OF ADMISSION. 01/02/19[address]CE[address]
[2018-12-31] MEDS: ASPIRIN 81 MG TAB.CHEW PO SCH (08:39)
[2018-12-31] MEDS: LACTOBACILLUS RHAMNOSUS GG 1 EACH CAP PO SCH (08:40)
[2018-12-31] MEDS: metFORMIN 500 MG TAB PO SCH ×2 (08:40→16:47)
[2018-12-31] MEDS: PANTOPRAZOLE 40 MG TABEC PO SCH (08:40)
[2018-12-31] MEDS ORDERED: THEOPHYLLINE 300 MG TABER PO SCH (09:00)
--- NOTE | 2018-12-31 09:46 | NUR ---
PT BS 422. ADMINISTERED LANTUS ORDERED. ASKING FOR PAIN MEDS FOR PAIN 05/30. PT SITTING ON HER BED. NO SIGN OF DISTRESS NOTED. WILL CONTINUE TO MONITOR PT.
--- NOTE | 2018-12-31 12:53 | NUR ---
CALLED . PT BS 430. NOTIFIED MD. COULD NOT GET HOLD OF MD. WILL CALL IN 5 MIN AGAIN FOR HIGH VALUE BS 430.
[2018-12-31 12:55] LABS: BASOPHILS % (AUTO) 0.3 % (0.0-2.0); HEMATOCRIT 38.4 % (36-48); HEMOGLOBIN 12.4 g/dL (12.0-16.0); LYMPHOCYTES # (AUTO) 0.4 K/uL (2.5-16.5); LYMPHOCYTES % (AUTO) 3.7 % (20.5-51.1); MEAN CORPUSCULAR HEMOGLOBIN 30 pg (27-31); MEAN CORPUSCULAR HGB CONC 32 g/dL (33-37); MEAN CORPUSCULAR VOLUME 93.7 fL (80-94); MONOCYTES # (AUTO) 0.1 K/uL (0.8-1.0); MONOCYTES % (AUTO) 0.6 % (1.7-9.3); NEUTROPHILS # (AUTO) 10.4 K/uL (1.8-7.7); NEUTROPHILS % (AUTO) 95.4 % (42.2-75.2); PLATELET COUNT (AUTO) 368 K/uL (140-450); RED CELL DISTRIBUTION WIDTH 14.9 % (11.6-13.7); WHITE BLOOD COUNT (AUTO) 10.9 K/uL (4.8-10.8)
[2018-12-31] MEDS ORDERED: glipiZIDE 5 MG TAB PO SCH ×2 (13:18→18:15)
[2018-12-31] MEDS: THEOPHYLLINE 80 MG/15 ML PO SCH ×2 (13:28→20:59)
[2018-12-31] MEDS: INSULIN LISPRO SLIDING SCALE 100 UNITS/ML VIAL SUBQ PRN ×4 (13:36→20:54)
[2018-12-31] MEDS ORDERED: NACL 0.9% 500 ML IV SCH (15:15)
[2018-12-31 16:00] VITALS: BP 139/72
--- NOTE | 2018-12-31 16:00 | NUR ---
TALKED TO PT REGARDING THE SPUTUM COLLECTION. PT STATES THAT SHE HAS VERY DIFFICULTY TO COUGH UP. STATES ITS HURTFUL. INFORMED HER TO TRY MUCH SHE CAN. PT STATES WILL TRY . WILL CHECK WITH PT LATER.
[2018-12-31] MEDS: LEVOFLOXACIN 750 MG/D5W PREMIX 150 ML IV SCH (16:45)
[2018-12-31] MEDS: methylPREDNISolone SS 40 MG/ML VIAL IVP SCH (18:00)
[2018-12-31] MEDS ORDERED: guaiFENesin/CODEINE 100/10MG 5 ML UDC PO PRN (18:00)
[2018-12-31] MEDS ORDERED: methylPREDNISolone SS 40 MG/ML VIAL IVP SCH (18:20)
--- NOTE | 2018-12-31 18:30 | NUR ---
ADMINISTERED MEDS TO PT ORDERED. SOUMEDROL ORDER PUT BY PHARMACY, MEDS GIVEN TO PT. PT COMPLAIN OF PAIN, MORPHINE ADMINISTERED. ABX INFUSION INFUSING WELL. NO SIGN OF DISTRESS NOTED. WILL CONTINUE TO MONITOR PT.
--- NOTE | 2018-12-31 19:30 | NUR ---
ENDORSED PT TO PM NURSE AT BEDSIDE. PT IN STABLE CONDITION.
--- NOTE | 2018-12-31 19:31 | NUR ---
RECEIVED BEDSIDE REPORT FROM AM NURSE PT ON HIGH FOWLERS. HAS O2 VIA NC. NO SOB NOTED AT THIS TIME.WITH IVF PATENT AND INTACT. SPUTUM NEEDS TO BE COLLECTED. AGAIN INSTRUCTED PT. NO SIGN OF DISTRESS NOTED AT THIS TIME. CALL LIGHT WITHIN EASY REACH. WILL CONTINUE TO MONITOR PT.
[2018-12-31] MEDS: MONTELUKAST SODIUM 10 MG TAB PO SCH (20:55)
[2018-12-31] MEDS ORDERED: ZOLPIDEM 5 MG TAB PO PRN (21:00)
[2019-01-01] VITALS: BP 121/68
[2019-01-01] MEDS: methylPREDNISolone SS 40 MG/ML VIAL IVP SCH ×3 (00:30→20:56)
[2019-01-01] MEDS: MORPHINE SULFATE 2 MG/ML SYR IVP PRN ×6 (01:13→23:35)
[2019-01-01] MEDS ORDERED: methylPREDNISolone SS 40 MG/ML VIAL IVP SCH ×2 (05:00→09:09)
--- NOTE | 2019-01-01 05:30 | NUR ---
PT BS 419. INFORMED DR. ALVARADO. SAID THAT HE WILL ORDER 10 UNITS LANTUS. ONE FOR 0600 AM AND ANOTHER 10 LANTUS AT 0900 AM. WILL CARRY OUT
--- NOTE | 2019-01-01 05:38 | NUR ---
INFORMED DR. ALVARADO CRITICAL HIGH RESULT OF BG; 419MG/DL. DR. LAMBERTO LOERA. WILL CARRY IT OUT
[2019-01-01] MEDS: BLOOD GLUCOSE MONITORING 1 DEV DEV FS SCH ×4 (05:52→20:43)
[2019-01-01] MEDS: THEOPHYLLINE 80 MG/15 ML PO SCH ×3 (05:56→20:56)
[2019-01-01] MEDS ORDERED: INSULIN LANTUS 100 UNITS/ML 10 ML VIAL SUBQ ONE (06:00)
--- NOTE | 2019-01-01 06:00 | NUR ---
EVARISTO KAMINSKI CARRIED OUT AND GIVEN TO PT.
[2019-01-01] MEDS ORDERED: glipiZIDE 5 MG TAB PO SCH (06:30)
[2019-01-01 06:43] LABS: BASOPHILS % (AUTO) 0.1 % (0.0-2.0); HEMATOCRIT 36.3 % (36-48); HEMOGLOBIN 11.8 g/dL (12.0-16.0); LYMPHOCYTES # (AUTO) 0.5 K/uL (2.5-16.5); LYMPHOCYTES % (AUTO) 3.3 % (20.5-51.1); MEAN CORPUSCULAR HEMOGLOBIN 30 pg (27-31); MEAN CORPUSCULAR HGB CONC 32 g/dL (33-37); MEAN CORPUSCULAR VOLUME 92.7 fL (80-94); MONOCYTES # (AUTO) 0.2 K/uL (0.8-1.0); MONOCYTES % (AUTO) 1.5 % (1.7-9.3); NEUTROPHILS # (AUTO) 14.1 K/uL (1.8-7.7); NEUTROPHILS % (AUTO) 95.1 % (42.2-75.2); PLATELET COUNT (AUTO) 384 K/uL (140-450); RED BLOOD CELL COUNT(AUTO) 3.92 MIL/uL (4.20-5.40); RED CELL DISTRIBUTION WIDTH 14.8 % (11.6-13.7); WHITE BLOOD COUNT (AUTO) 14.8 K/uL (4.8-10.8)
[2019-01-01] MEDS: ALBUTEROL SULFATE/IPRATROPIU 3 ML SOL IH SCH ×4 (07:04→23:21)
--- NOTE | 2019-01-01 07:04 | NUR ---
AWAKE ABD ALERT PATIENT STATES THAT "I ONLY USE OXYGEN WHEN SLEEPING DURING THE DAY WHEN I'M ACTIVE I DON'T USE OXYGEN" POST [facility] THERAPY PATIENT OFF SUPPLEMENTAL OXYGEN COMPLIANCE AIDE TO MONITOR
--- NOTE | 2019-01-01 07:12 | NUR ---
ENDORSED PT TO AM NURSE FOR CONTINUITY OF CARE. PT'S BLOOD GLUCOSE ENDORSED TO NEXT SHIFT TO BE MONITORED CLOSELY.
--- NOTE | 2019-01-01 07:15 | NUR ---
RECEIVED REPORT FROM PM NURSE AT BEDSIDE. PT SITTING ON HER BED AT THIS TIME. PT TOLERATING WELL ON RA. DENIES ANY DISTRESS AT THIS TIME. LAB CALLED , PT BS 468. PER PM NURSE PT ADMINISTERED 10 UNITS OF LANTUS THIS MORNING. PT ON SOLUMEDROL AND BREATHING TREATMENT AT THIS TIME. UPDATED BOARD . NO SIGN OF DISTRESS NOTED AT THIS TIME. WILL CONTINUE TO MONITOR PT.
[2019-01-01 07:24] LABS: ANION GAP 14.2 (8-16); CARBON DIOXIDE 24.5 mmol/L (21-32); POTASSIUM 4.7 mmol/L (3.5-5.1)
[2019-01-01 08:00] VITALS: BP 147/75
[2019-01-01] MEDS ORDERED: INSULIN LANTUS 100 UNITS/ML 10 ML VIAL SUBQ SCH (09:00)
[2019-01-01] MEDS: LACTOBACILLUS RHAMNOSUS GG 1 EACH CAP PO SCH (09:06)
[2019-01-01] MEDS: PANTOPRAZOLE 40 MG TABEC PO SCH (09:07)
[2019-01-01] MEDS: metFORMIN 500 MG TAB PO SCH ×2 (09:07→17:41)
[2019-01-01] MEDS: ASPIRIN 81 MG TAB.CHEW PO SCH (09:07)
[2019-01-01] MEDS: INSULIN NPH HUM/REG INSULIN HM 100 UNIT/ML 10 ML VIAL SUBQ SCH ×2 (09:10→20:51)
[2019-01-01] MEDS ORDERED: DOCUSATE SODIUM 100 MG GELCAP PO SCH (09:10)
[2019-01-01] MEDS: INSULIN LANTUS 100 UNITS/ML 10 ML VIAL SUBQ SCH ×2 (09:10→20:52)
--- NOTE | 2019-01-01 09:13 | NUR ---
ADMINISTERED MEDS TO PT ORDERED TOLERATED WELL. NO SIGN OF DISTRESS NOTED. PT WALKING AROUND RUST HALLWAY. WILL CONTINUE TO MONITOR PT.
--- NOTE | 2019-01-01 10:39 | NUR ---
ADMINISTERED MEDS TO PT ORDERED. TOLERATED WELL. PT STATES TO HAVE BM TODAY. PT SITTING ON HER BED AND ON MOBILE. WILL CONTINUE TO MONITOR PT.
[2019-01-01] MEDS: NACL 0.9% 1,000 ML IV SCH (11:36)
[2019-01-01] MEDS: INSULIN LISPRO SLIDING SCALE 100 UNITS/ML VIAL SUBQ PRN ×3 (12:05→20:50)
[2019-01-01 16:00] VITALS: BP 142/80
[2019-01-01] MEDS: LEVOFLOXACIN 750 MG/D5W PREMIX 150 ML IV SCH (17:41)
--- NOTE | 2019-01-01 17:47 | NUR ---
ADMINISTER MEDS TO PT ORDERED. PT BS 391. GAVE INSULIN PER SLIDING SCALE. PT SITTING ON BED COMFORTABLY. NO SIGN OF DISTRESS NOTED. WILL CONTINUE TO MONITOR PT.
--- NOTE | 2019-01-01 19:25 | NUR ---
ENDORSED PT TO PM NURSE AT BEDSIDE. PT IN STABLE CONDITION.
--- NOTE | 2019-01-01 19:30 | NUR ---
ASSUMED CARE OF PATIENT, AWAKE, ALERT AND ORIENTED. NO COMPLAINS. PAIN MEDS TO BE GIVEN ORDERED. CALL LIGHT WITHIN REACH.
[2019-01-01] MEDS: BUDESONIDE 0.5 MG/2 ML NEBU INH SCH (19:36)
--- NOTE | 2019-01-01 19:52 | NUR ---
RECEIVED PATIENT ON ROOM AIR, PULSE OX SAT 94%. SCHEDULED BREATHING TREATMENTS ADMINISTERED. TOLERATED TXS WELL, NO ADVERSE SIDE EFFECTS. ORAL RINSE DONE POST TX. NO ACUTE RESPIRATORY DISTRESS NOTED. WILL CONTINUE TO MONITOR.
[2019-01-01] MEDS: MONTELUKAST SODIUM 10 MG TAB PO SCH (20:56)
--- NOTE | 2019-01-01 21:00 | NUR ---
DUE MEDS GIVEN. HS SNACK GIVEN. NO COMPLAINS. AMBULATING WELL. CALL LIGHT WITHIN REACH. PLAN OF CARE DISCUSSED WITH PATIENT, VERBALIZED UNDERSTANDING WELL.
--- NOTE | 2019-01-01 23:31 | NUR ---
SCHEDULED BREATHING TX ADMINISTERED. TOLERATED TX WELL, NO ADVERSE SIDE EFFECTS. NO ACUTE RESPIRATORY DISTRESS. WILL CONTINUE TO MONITOR.
[2019-01-02 00:09] VITALS: BP 141/84
--- NOTE | 2019-01-02 00:29 | NUR ---
AWAKE. NO COMPLAINS. VITAL SIGNS STABLE. AFEBRILE. CALL LIGHT WITHIN REACH.
[2019-01-02] MEDS: NACL 0.9% 1,000 ML IV SCH (00:49)
[2019-01-02] MEDS: MORPHINE SULFATE 2 MG/ML SYR IVP PRN ×2 (03:37→09:12)
[2019-01-02] MEDS: ALBUTEROL SULFATE/IPRATROPIU 3 ML SOL IH SCH ×3 (03:40→11:48)
--- NOTE | 2019-01-02 03:50 | NUR ---
SCHEDULED BREATHING TREATMENT ADMINISTERED. TOLERATED WELL, NO ADVERSE SIDE EFFECTS. WILL CONTINUE TO MONITOR.
--- NOTE | 2019-01-02 05:00 | NUR ---
NO COMPLAINS. CALL LIGHT WITHIN REACH.
[2019-01-02] MEDS: THEOPHYLLINE 80 MG/15 ML PO SCH (05:05)
[2019-01-02] MEDS: BLOOD GLUCOSE MONITORING 1 DEV DEV FS SCH (05:38)
[2019-01-02 06:51] LABS: ANION GAP 14.7 (8-16); CARBON DIOXIDE 26.2 mmol/L (21-32); CREATININE 0.9 mg/dL (0.6-1.3); POTASSIUM 3.9 mmol/L (3.5-5.1)
[2019-01-02 07:07] LABS: BASOPHILS % (AUTO) 0.2 % (0.0-2.0); HEMATOCRIT 35.7 % (36-48); HEMOGLOBIN 11.7 g/dL (12.0-16.0); LYMPHOCYTES # (AUTO) 1.1 K/uL (2.5-16.5); LYMPHOCYTES % (AUTO) 7.7 % (20.5-51.1); MEAN CORPUSCULAR HEMOGLOBIN 30 pg (27-31); MEAN CORPUSCULAR HGB CONC 33 g/dL (33-37); MEAN CORPUSCULAR VOLUME 92.5 fL (80-94); MONOCYTES # (AUTO) 0.6 K/uL (0.8-1.0); MONOCYTES % (AUTO) 4.2 % (1.7-9.3); NEUTROPHILS # (AUTO) 12.6 K/uL (1.8-7.7); NEUTROPHILS % (AUTO) 87.9 % (42.2-75.2); PLATELET COUNT (AUTO) 415 K/uL (140-450); RED BLOOD CELL COUNT(AUTO) 3.86 MIL/uL (4.20-5.40); RED CELL DISTRIBUTION WIDTH 14.3 % (11.6-13.7); WHITE BLOOD COUNT (AUTO) 14.4 K/uL (4.8-10.8)
--- NOTE | 2019-01-02 07:22 | NUR ---
ENDORSED CARE AT BEDSIDE WITH STEPHANY RN, PATIENT IN STABLE CONDITION.
--- NOTE | 2019-01-02 07:23 | NUR ---
RECEIVED REPORT FROM PM NURSE. PT SITTING ON HER BED. NO DISTRESS. WILL CONTINUE TO MONITOR PT.
[2019-01-02] MEDS ORDERED: glipiZIDE 5 MG TAB PO SCH (07:30)
[2019-01-02] MEDS: BUDESONIDE 0.5 MG/2 ML NEBU INH SCH (07:44)
[2019-01-02 08:00] VITALS: BP 151/87
[2019-01-02] MEDS ORDERED: DOCUSATE SODIUM 100 MG GELCAP PO SCH (09:00)
[2019-01-02] MEDS: INSULIN NPH HUM/REG INSULIN HM 100 UNIT/ML 10 ML VIAL SUBQ SCH (09:00)
[2019-01-02] MEDS: metFORMIN 500 MG TAB PO SCH (09:12)
[2019-01-02] MEDS: ASPIRIN 81 MG TAB.CHEW PO SCH (09:12)
[2019-01-02] MEDS: LACTOBACILLUS RHAMNOSUS GG 1 EACH CAP PO SCH (09:12)
[2019-01-02] MEDS: PANTOPRAZOLE 40 MG TABEC PO SCH (09:13)
[2019-01-02] MEDS: methylPREDNISolone SS 40 MG/ML VIAL IVP SCH (09:13)
[2019-01-02] MEDS: INSULIN LANTUS 100 UNITS/ML 10 ML VIAL SUBQ SCH (10:47)
[2019-01-02] MEDS ORDERED: LEVO750T2 PO (10:55)
[2019-01-02] MEDS ORDERED: PRED20TA5 PO (11:53)
[2019-01-02] MEDS ORDERED: DEXT5SYR3 PO (11:58)
--- NOTE | 2019-01-02 12:40 | NUR ---
PT DISCHARGED TO HOME . PRESCRIPTION AND THE PACKET PROVIDED. PT VERBALISES UNDERSTANDING OF TEACHING. PT STABLE AND WALKED HERSELF OUT OF THE HOSPITAL.
== END 2019-01-02 12:40 | disposition home or self-care (01) | DRG 720 ==
LOC: MED 20:00 → MTU 12-31
PROVIDERS: ADMIT General Practice; ATTEND General Practice
DX: A41.9 Sepsis, unspecified organism (principal); J96.20 Acute and chronic respiratory failure, unspecified whether with hypoxia or hypercapnia; D68.59 Other primary thrombophilia; E11.40 Type 2 diabetes mellitus with diabetic neuropathy, unspecified; E11.65 Type 2 diabetes mellitus with hyperglycemia; E44.1 Mild protein-calorie malnutrition; J44.1 Chronic obstructive pulmonary disease with (acute) exacerbation; E83.42 Hypomagnesemia; E87.1 Hypo-osmolality and hyponatremia; F32.9 Major depressive disorder, single episode, unspecified; I48.91 Unspecified atrial fibrillation; E11.9 Type 2 diabetes mellitus without complications; K21.9 Gastro-esophageal reflux disease without esophagitis; I10 Essential (primary) hypertension; F41.9 Anxiety disorder, unspecified; G89.29 Other chronic pain; M54.9 Dorsalgia, unspecified; M81.0 Age-related osteoporosis without current pathological fracture; N12 Tubulo-interstitial nephritis, not specified as acute or chronic; Z88.1 Allergy status to other antibiotic agents; Z88.0 Allergy status to penicillin; Z88.8 Allergy status to other drugs, medicaments and biological substances; Z90.49 Acquired absence of other specified parts of digestive tract; Z68.27 Body mass index [BMI] 27.0-27.9, adult; Z87.891 Personal history of nicotine dependence
CPT/HCPCS: 36415; 71045; 80048; 80053; 80305; 81001; 82150; 82948; 83036; 83605; 83690; 83735; 83880; 84100; 84443; 84484; 85025; 85610; 85730; 87040; 87081; 87086; 87186; 87804; 93005; 94640; 96365; 96375; 99285; J0456; J0696; J1815; J1885; J1956; J2270; J2920; J2930; J3475; J7030; J7060; J7620; J7626

== ENCOUNTER 2019-06-29 16:59 | Inpatient (IN) | payer OTHER ==
[~2019-06-29] VITALS: Ht 157.5 cm; Wt 68.0 kg
[~2019-06-29 16:59] MED LIST changes: -ATRN INH; -BUDE1AER IH; -DABI150C PO; +DEXT5SYR3 PO; -GUAI-1094 PO; +INSU10SU2 SC; +LEVO750T2 PO; -PRED10TA5 PO; -PRED1TAB2 PO; -ROBAC PO; -ROFL250T PO; -TIOT4MIS IH; +TIZA4CAP PO; +[UNRECOGNIZED DRUG - CODE] PO; -[UNRECOGNIZED DRUG - CODE] PO
[2019-06-29 17:11] VITALS: BP 184/83
--- NOTE | 2019-06-29 17:11 | NUR ---
PT BIB SELF C/O SOB, CP, COUGH, AND HEADACHE X3 WEEKS. RR RATE 32, ACESSORY MUSCLE USE, WHEEZES THROUGHOUT, PT REPORTS PRODUCTIVE COUGH W/ DARK GREEN SPUTUMPT O2 SAT AT 91% ON RA, PLACED ON 2L VIA NC, O2 SAT INCREASED TO 96%. LT SIDED CP RADIATING DOWN BACK. ER MD AT BEDSIDE. MEDHX:COPD, ASTHMA, DM RX:SEE MED REC
[2019-06-29] MEDS ORDERED: ALBUTEROL 0.083% 2.5 MG/3 ML NEBU INH ONE ×2 (17:15)
[2019-06-29] MEDS ORDERED: IPRATROPIUM 0.02% 0.5 MG/2.5 ML NEBU INH ONE (17:15)
[2019-06-29] MEDS ORDERED: methylPREDNISolone SS 125 MG in WATER STERILE 2 ML IV ONE (17:15)
--- NOTE | 2019-06-29 17:25 | NUR ---
XRAY AT BEDSIDE
--- NOTE | 2019-06-29 17:36 | NUR ---
RT AT BEDSIDE AT THIS TIME.
[2019-06-29] MEDS ORDERED: NACL 0.9% 1,000 ML IV ONE ×2 (17:47→19:00)
[2019-06-29] MEDS ORDERED: VANCOMYCIN 1,000 MG in DEXTROSE 5% 250 ML IV ONE (17:50)
[2019-06-29] MEDS ORDERED: LEVOFLOXACIN 750 MG/D5W PREMIX 150 ML IV ONE (17:50)
[2019-06-29] MEDS ORDERED: INSULIN REGULAR, HUMAN 100 UNIT/ML VIAL IV ONE (18:05)
[2019-06-29] MEDS ORDERED: INSULIN REGULAR, HUMAN 100 UNIT/ML VIAL IVP ONE (18:05)
[2019-06-29] MEDS ORDERED: VANCOMYCIN 1,000 MG VIAL ONE (18:21)
[2019-06-29 18:27] LABS: BASOPHILS # (AUTO) 0.1 K/uL (0.00-0.22); BASOPHILS % (AUTO) 0.5 % (0.0-2.0); EOSINOPHILS # (AUTO) 0.2 K/uL (0-0.4); EOSINOPHILS % (AUTO) 1.4 % (0.0-4.0); HEMATOCRIT 40.9 % (36-48); HEMOGLOBIN 13.3 g/dL (12.0-16.0); LYMPHOCYTES # (AUTO) 1.8 K/uL (2.5-16.5); LYMPHOCYTES % (AUTO) 15.6 % (20.5-51.1); MEAN CORPUSCULAR HEMOGLOBIN 30 pg (27-31); MEAN CORPUSCULAR HGB CONC 33 g/dL (33-37); MEAN CORPUSCULAR VOLUME 90.6 fL (80-94); MONOCYTES # (AUTO) 0.6 K/uL (0.8-1.0); NEUTROPHILS # (AUTO) 9.1 K/uL (1.8-7.7); NEUTROPHILS % (AUTO) 77.5 % (42.2-75.2); PLATELET COUNT (AUTO) 313 K/uL (140-450); RED BLOOD CELL COUNT(AUTO) 4.51 MIL/uL (4.20-5.40); RED CELL DISTRIBUTION WIDTH 14.7 % (11.6-13.7); WHITE BLOOD COUNT (AUTO) 11.8 K/uL (4.8-10.8)
[2019-06-29 18:47] LABS: PROTHROMBIN TIME 8.5 secs (10.8-13.4)
[2019-06-29] MEDS ORDERED: HYDROcodone/APAP 7.5/325 MG 1 TAB PO PRN (18:50)
[2019-06-29] MEDS ORDERED: ACETAMINOPHEN 325 MG TAB PO PRN (18:50)
[2019-06-29] MEDS ORDERED: ONDANSETRON 4 MG/2 ML VIAL IM/IVP PRN (18:50)
[2019-06-29] MEDS ORDERED: DOCUSATE SODIUM 100 MG GELCAP PO PRN (18:50)
[2019-06-29] MEDS ORDERED: MORPHINE SULFATE 4 MG/ML SYR IVP ONE (19:05)
[2019-06-29 19:07] LABS: ALBUMIN 3.3 g/dL (3.4-5.0); ANION GAP 19.6 (8-16); CARBON DIOXIDE 27.1 mmol/L (21-32); CREATININE 0.8 mg/dL (0.6-1.3); POTASSIUM 4.7 mmol/L (3.5-5.1); TOTAL BILIRUBIN 0.3 mg/dL (0.0-1.0)
[2019-06-29] MEDS ORDERED: ALBUTEROL SULFATE/IPRATROPIU 3 ML SOL IH ONE (19:07)
[2019-06-29 19:18] LABS: APPEARANCE,URINE CLEAR (CLEAR); BILIRUBIN,URINE NEGATIVE (NEGATIVE); BLOOD, URINE 2+ (NEGATIVE); COLOR,URINE YELLOW (YELLOW); LEUKOCYTE ESTERASE ,URINE NEGATIVE (NEGATIVE); NITRITE, URINE NEGATIVE (NEGATIVE); UGLUCOSE 3+ (NEGATIVE)
[2019-06-29 19:29] LABS: WBC,URINE 0-5 /HPF (0-5)
[2019-06-29 19:40] VITALS: BP 123/74
[2019-06-29] MEDS: NACL 0.9% 1,000 ML IV SCH (19:40)
--- NOTE | 2019-06-29 19:40 | NUR ---
ADMITTED 64F FROM ER. CAME BY TAIHRA DUE TO SOB A,COUGH AND PAIN. AWAKE,ALERT AND ORIENTED X4. TELE PT. ON O22L/NC. O2 SAT 95%. STILL WITH OCCASIONAL NON PRODUCTIVE COUGH. NO C/O PAIN AT THIS TIME . JUST MEDICATED IN ER PRIOR TO ADMIT TO FLOOR. WITH IV ACCESS ON THE RT FA G#22. CLEAR AND PATENT. VANCOMYCIN STILL INFUSING. ORIENTED TO HOSPITAL ROUTINES. BED ON LOWEST POSITION, SIDE RAILS UP X2. CALL LIGHT WITHIN EASY REACH. WILL FOLLOW UP ADMIT ORDERS AND WILL CONTINUE TO MONITOR PT.
--- NOTE | 2019-06-29 19:47 | NUR ---
Pt report given to karla cortés. Transfer of care at this time. pt to tele room 112b. vancomycin will continue to infuse on floor
[2019-06-29 19:48] LABS: BARBITURATE, URINE NEG. ng/ml (NEG <=200); BENZODIAZEPINE, URINE NEG. ng/mL (NEG <=200); CANNABINOID, URINE NEG. ng/mL (NEG <=50); COCAINE, URINE NEG. ng/mL (NEG <=300); OPIATE, URINE POS. ng/mL (NEG <=2000); PHENCYCLIDINE SCREEN,URINE NEG. ng/mL (NEG <=25)
[2019-06-29 19:57] LABS: CHOL/HDL RATIO 2.9 (1-4.5); MAGNESIUM 1.6 mg/dL (1.8-2.4); PHOSPHORUS 4.3 mg/dL (2.5-4.9)
[2019-06-29 19:58] LABS: THYROID STIMULATING HORMONE 3.86 uIU/mL (0.34-3.74)
[2019-06-29] MEDS ORDERED: DEXTROSE 50% 50 ML SYR IVP PRN (20:15)
[2019-06-29] MEDS ORDERED: methylPREDNISolone SS 125 MG/2 ML VIAL IVP SCH (20:30)
--- NOTE | 2019-06-29 20:30 | NUR ---
AMBULATORY. PATIENT REFUSED SEQUENTIAL DEVICE FOR BOTH LEGS
[2019-06-29] MEDS: ALBUTEROL SULFATE/IPRATROPIU 3 ML SOL IH PRN (21:28)
[2019-06-29] MEDS: BUDESONIDE 0.5 MG/2 ML NEBU INH SCH (21:29)
[2019-06-29] MEDS ORDERED: HYDROcodone/APAP 10/325 MG 1 TAB TAB PO PRN (21:40)
--- NOTE | 2019-06-29 21:48 | NUR ---
CLARIFIED WITH DR. URBINA,RESIDENT ABOUT THE SOLU-MEDROL DUE 2029. SHE SAID NOT TO GIVE IT FOR PT ALREADY GOT A DOSE IN ER.
[2019-06-29] MEDS: BLOOD GLUCOSE MONITORING 1 DEV DEV FS SCH (21:54)
[2019-06-29] MEDS: INSULIN LISPRO SLIDING SCALE 100 UNITS/ML VIAL SUBQ PRN (21:56)
--- NOTE | 2019-06-29 21:56 | NUR ---
BLOOD SUGAR WAS CHECKED RESULT 382. INSULIN COVERAGE HUMALOG 10 UNITS SUB Q GIVEN RT UPPER ARM. PROVIDED WITH SOME CRACKERS . WILL CONTINUE TO MONITOR.
[2019-06-29] MEDS ORDERED: MAGNESIUM OXIDE 400 MG TAB PO SCH (22:00)
[2019-06-29] MEDS: MORPHINE SULFATE 2 MG/ML SYR IVP PRN (22:14)
[2019-06-30 00:29] VITALS: BP 112/92
--- NOTE | 2019-06-30 00:40 | NUR ---
ADMINISTERED CLINDAMYCIN, IVPB. WILL MONITOR FOR ANY REACTION.
[2019-06-30] MEDS ORDERED: CLINDAMYCIN 600 MG/4 ML VIAL ONE ×2 (00:48→06:31)
[2019-06-30] MEDS ORDERED: NON-FORMULARY ITEM (Lorazepam (Ativan) 1 TAB) PO PRN (00:50)
[2019-06-30] MEDS ORDERED: tiZANidine 4 MG TAB PO PRN (00:50)
[2019-06-30] MEDS: CLINDAMYCIN 300 MG in DEXTROSE 5% 50 ML IV SCH ×4 (00:53→17:41)
[2019-06-30] MEDS ORDERED: LORazepam 1 MG TAB PO PRN (01:05)
--- NOTE | 2019-06-30 02:00 | NUR ---
MADE ROUNDS. PT ASLEEP. NO S/S FO ANY DISOCMFORT NOR DISTRESS NOTED.
[2019-06-30] MEDS: MORPHINE SULFATE 2 MG/ML SYR IVP PRN ×5 (03:15→20:27)
--- NOTE | 2019-06-30 03:15 | NUR ---
PT AWAKE. C/O PAIN ON THE CHEST /BACK. MEDICATED ORDERED. WILL CONTINUE TO MONITOR,.
[2019-06-30] MEDS: ALBUTEROL SULFATE/IPRATROPIU 3 ML SOL IH PRN ×3 (03:27→14:06)
--- NOTE | 2019-06-30 04:15 | NUR ---
PT SAID PAIN IS LESS ,GETTING BETTER.
[2019-06-30 04:29] VITALS: BP 124/64
[2019-06-30] MEDS: NACL 0.9% 1,000 ML IV SCH (06:23)
[2019-06-30] MEDS: PANTOPRAZOLE 40 MG TABEC PO SCH (06:29)
[2019-06-30] MEDS: INSULIN LISPRO SLIDING SCALE 100 UNITS/ML VIAL SUBQ PRN ×4 (06:32→21:52)
--- NOTE | 2019-06-30 06:32 | NUR ---
BLOOD SUGAR WAS CHECKED RESULT 392. INSULIN COVERAGE HUMALOG 10 UNITS SUBQ GIVEN RT ARM WHAT PT PREFERRED.
[2019-06-30] MEDS: BLOOD GLUCOSE MONITORING 1 DEV DEV FS SCH ×4 (06:34→20:36)
--- NOTE | 2019-06-30 07:19 | NUR ---
ENDORSED PT IN STABLE CONDITION TO AM NURSE.
--- NOTE | 2019-06-30 07:21 | NUR ---
ENDORSED PT IN STABLE CONDITION TO AM JNURSE.
--- NOTE | 2019-06-30 07:22 | NUR ---
REPORT RECEIVED FROM WORKFORCE SPECIALIST NURSE, PT OX4, PT SITTING UP IN BED, RESP SLIGHTLY LABORED, OCCASIONAL COUGHS, PT ABLE TO SPEAK IN FULL SENTENCES, RT TO GIVE NEB, POC REVIEWED, NO IMMEDIATE NEEDS AT THIS TIME, ALL SAFETY MEASURES IN PLACE, WILL CONTINUE TO MONITOR.
[2019-06-30 07:42] LABS: MAGNESIUM 1.7 mg/dL (1.8-2.4); PHOSPHORUS 3.5 mg/dL (2.5-4.9)
[2019-06-30] MEDS: metFORMIN 500 MG TAB PO SCH ×2 (07:53→16:56)
[2019-06-30 07:59] LABS: ANION GAP 14.7 (8-16); CARBON DIOXIDE 25.7 mmol/L (21-32); CREATININE 0.7 mg/dL (0.6-1.3); POTASSIUM 5.4 mmol/L (3.5-5.1)
[2019-06-30 08:00] VITALS: BP 132/81
[2019-06-30] MEDS: ASPIRIN 81 MG TAB.CHEW PO SCH (08:00)
--- NOTE | 2019-06-30 08:00 | NUR ---
PT C/O PAIN IN UPPER BODY "FROM COUGHING", 06/30, MORPHINE GIVEN PER PRN ORDER.
[2019-06-30] MEDS: SERTRALINE 50 MG TAB PO SCH (08:01)
[2019-06-30] MEDS: methylPREDNISolone SS 125 MG/2 ML VIAL IVP SCH ×3 (08:01→20:27)
[2019-06-30] MEDS: LACTOBACILLUS RHAMNOSUS GG 1 EACH CAP PO SCH (08:01)
[2019-06-30] MEDS: predniSONE 20 MG TAB PO SCH (08:01)
[2019-06-30] MEDS: BUDESONIDE 0.5 MG/2 ML NEBU INH SCH ×2 (08:09→20:15)
[2019-06-30 08:19] LABS: BASOPHILS % (AUTO) 0.1 % (0.0-2.0); HEMATOCRIT 36.5 % (36-48); HEMOGLOBIN 12.2 g/dL (12.0-16.0); LYMPHOCYTES # (AUTO) 0.6 K/uL (2.5-16.5); MEAN CORPUSCULAR HEMOGLOBIN 30 pg (27-31); MEAN CORPUSCULAR HGB CONC 33 g/dL (33-37); MONOCYTES # (AUTO) 0.2 K/uL (0.8-1.0); NEUTROPHILS # (AUTO) 8.6 K/uL (1.8-7.7); NEUTROPHILS % (AUTO) 91.9 % (42.2-75.2); PLATELET COUNT (AUTO) 277 K/uL (140-450); RED BLOOD CELL COUNT(AUTO) 4.01 MIL/uL (4.20-5.40); RED CELL DISTRIBUTION WIDTH 14.5 % (11.6-13.7); WHITE BLOOD COUNT (AUTO) 9.4 K/uL (4.8-10.8)
--- NOTE | 2019-06-30 08:29 | NUR ---
PATIENT HAS BEEN SCREENED AND CATEGORIZED MODERATE NUTRITION RISK. PATIENT WILL BE SEEN WITHIN 3-5 DAYS OF ADMISSION. 07/02/19[address]
[2019-06-30] MEDS ORDERED: THEOPHYLLINE 300 MG TABER PO SCH (09:00)
--- NOTE | 2019-06-30 10:01 | NUR ---
PT SITTING UP WATCHING TV, APPEARS COMFORTABLE, RESP EVEN UNLABORED, NO COUGH AT THIS TIME.
[2019-06-30] MEDS ORDERED: MAGNESIUM OXIDE 400 MG TAB PO SCH (11:25)
[2019-06-30] MEDS ORDERED: PATIROMER CALCIUM SORBITEX 8.4 GM PKT PO SCH (11:26)
[2019-06-30 12:00] VITALS: BP 143/76
--- NOTE | 2019-06-30 12:06 | NUR ---
CALLED PT'S PCP OFFICE DR LANEY MAYERS [phone] MADE F/U APPOINTMENT ON , AT 1245 PM THE ADDRESS IS [address] [place] [id number] APPOINTMENT REMINDER GIVEN TO THE PATIENT.
--- NOTE | 2019-06-30 12:50 | NUR ---
PT COUGHING CONSTANTLY, C/O PAIN 9/10 AROUND THE CHEST, PT SMILING, TALKING WITH FRIENDS, MEDICATED WITH MORPHINE, WILL CONTINUE TO MONITOR.
--- NOTE | 2019-06-30 14:22 | NUR ---
PT SITTING UP RESTING QUIETLY IN NAD, DENIES ANY PAIN NOW, WILL CONTINUE TO MONTIOR.
[2019-06-30 16:00] VITALS: BP 120/69
--- NOTE | 2019-06-30 16:22 | NUR ---
PT UP WALKING AROUND THE HALLWAY WITH STEADY GAIT.
[2019-06-30] MEDS: LEVOFLOXACIN 750 MG/D5W PREMIX 150 ML IV SCH (17:46)
--- NOTE | 2019-06-30 18:48 | NUR ---
PT SITTING UP WATHCNING TV, APPEARS CONFORTABLE, DENIES ANY IMMEDIATE NEEDS, WILL CONTINUE TO MONITOR.
[2019-06-30 19:16] LABS: ANION GAP 12.8 (8-16); CARBON DIOXIDE 26.2 mmol/L (21-32); CREATININE 0.8 mg/dL (0.6-1.3)
--- NOTE | 2019-06-30 19:23 | NUR ---
REPORT GIVEN TO TRANSFER MAN NURSE, PT SITTING UP, RESTING QUIETLY, DENIES ANY IMMEDIATE NEEDS.
--- NOTE | 2019-06-30 19:24 | NUR ---
RECEIVED PATIENT FROM DAY NURSE, PATIENT IS AWAKE, ALERT&ORIENTED X4, WITH INTERMITTENT COUGH BUT NO RESPIRATORY DISTRESS NOTED, ON 2L NS O2, O2 SAT ON 94, PATIENT ON TELE MONITOR, AMBULATORY, WITH IV FLUIDS INFUSING ON RIGHT FA 22G, INFUSING WELL, PATIENT COMPLAINED OF PAIN, WILL MEDICATED ORDERED, BED ON LOW POSITION, SIDE RAILS X2 UP, CALL LIGHT WITHIN REACH, WILL CONTINUE TO MONITOR.
[2019-06-30 19:56] VITALS: BP 132/75
[2019-06-30] MEDS: MONTELUKAST SODIUM 10 MG TAB PO SCH (20:27)
[2019-06-30] MEDS: INSULIN LANTUS 100 UNITS/ML 10 ML VIAL SUBQ SCH (20:44)
--- NOTE | 2019-06-30 20:44 | NUR ---
BLOOD SUGAR 446, ADMINISTERED LANTUS SCHEDULED 30UNITS SUBQ, MADE DR. URBINA RESIDENT AWARE, HUMALOG WAS HOLD, WILL RECHECK BLOOD SUGAR AFTER AN HOUR PER DR. URBINA AND WILL SEE HOW MUCH COVERAGE WILL BE NEEDED.
[2019-06-30] MEDS ORDERED: INSULIN LANTUS 100 UNITS/ML 10 ML VIAL SUBQ SCH (21:00)
[2019-06-30] MEDS ORDERED: ZOLPIDEM 5 MG TAB PO PRN (21:00)
[2019-06-30] MEDS ORDERED: NON-FORMULARY ITEM (Insulin Glargine,Hum.rec.anlog (Lantus Solostar) 20 UNIT) SUBQ SCH (21:00)
--- NOTE | 2019-06-30 21:52 | NUR ---
BLOOD SUGAR RECHECK WAS 350, DR. URBINA WAS MADE AWARE AND SAID TO GIVE THE SCHEDULED HUMALOG, 12 UNITS, HS SNACK WAS PROVIDED, WILL CONTINUE TO MONITOR.
--- NOTE | 2019-06-30 23:00 | NUR ---
PT IS ASLEEP. NO S/S OF ANY DISCOMFORT NOTED. WILL CONTINUE TO MONITOR.
[2019-07-01] VITALS (7 sets, daily range): BP systolic 118–146; BP diastolic 60–76
[2019-07-01] MEDS: MORPHINE SULFATE 2 MG/ML SYR IVP PRN ×6 (00:12→20:51)
[2019-07-01] MEDS: ALBUTEROL SULFATE/IPRATROPIU 3 ML SOL IH PRN ×3 (02:57→20:29)
--- NOTE | 2019-07-01 03:20 | NUR ---
PT COUGHING A LOT .HR GOES UP TO 140. BREATHING TREATMENT GIVEN NEEDED. HR BACK TO 73.
[2019-07-01] MEDS ORDERED: PNEUMOCOCCAL VACCINE 23 MCG/0.5 ML VIAL IMVAC PRN (05:05)
[2019-07-01] MEDS: CLINDAMYCIN 300 MG in DEXTROSE 5% 50 ML IV SCH ×6 (05:23→23:08)
[2019-07-01] MEDS: BLOOD GLUCOSE MONITORING 1 DEV DEV FS SCH ×4 (05:28→20:41)
[2019-07-01] MEDS: INSULIN LISPRO SLIDING SCALE 100 UNITS/ML VIAL SUBQ PRN ×4 (05:32→20:43)
--- NOTE | 2019-07-01 05:32 | NUR ---
BLOOD SUGAR 463, DR. CAMARILLO MADE AWARE. SAID TO GIVE 15 UNITS OF HUMALOG AND RECHECK BLOOD SUGAR IN AN HOUR.
[2019-07-01] MEDS: PANTOPRAZOLE 40 MG TABEC PO SCH (07:02)
--- NOTE | 2019-07-01 07:15 | NUR ---
GAVE REPORT TO DAY SHIFT NURSEBILL. PATIENT IS IN STABLE CONDITION.
--- NOTE | 2019-07-01 07:16 | NUR ---
RECEIVED BEDSIDE REPORT FROM CHOCOLATE MAKER NURSE. PATIENT IS AWAKE, ALERT AND ORIENTEDX4. NO RESP DISTRESS ON 2L NC. AMBULATORY. SKIN IS INTACT. R FA 22G INFUSING NS AT 20. CLEAN, DRY AND INTACT. CONTINENT. TELE MONITOR IN PLACE. BED IN LOW POSITION. CALL LIGHT WITHIN REACH. WILL CONTINUE TO MONITOR THE PATIENT.
[2019-07-01] MEDS: BUDESONIDE 0.5 MG/2 ML NEBU INH SCH ×2 (07:56→20:29)
[2019-07-01 08:12] LABS: BASOPHILS % (AUTO) 0.1 % (0.0-2.0); HEMATOCRIT 38.5 % (36-48); HEMOGLOBIN 12.6 g/dL (12.0-16.0); LYMPHOCYTES % (AUTO) 7.3 % (20.5-51.1); MEAN CORPUSCULAR HEMOGLOBIN 30 pg (27-31); MEAN CORPUSCULAR HGB CONC 33 g/dL (33-37); MEAN CORPUSCULAR VOLUME 91.2 fL (80-94); MONOCYTES # (AUTO) 0.4 K/uL (0.8-1.0); NEUTROPHILS # (AUTO) 11.8 K/uL (1.8-7.7); NEUTROPHILS % (AUTO) 89.6 % (42.2-75.2); PLATELET COUNT (AUTO) 330 K/uL (140-450); RED BLOOD CELL COUNT(AUTO) 4.22 MIL/uL (4.20-5.40); RED CELL DISTRIBUTION WIDTH 14.5 % (11.6-13.7); WHITE BLOOD COUNT (AUTO) 13.2 K/uL (4.8-10.8)
[2019-07-01] MEDS: LACTOBACILLUS RHAMNOSUS GG 1 EACH CAP PO SCH (08:13)
[2019-07-01] MEDS: predniSONE 20 MG TAB PO SCH (08:13)
[2019-07-01] MEDS: methylPREDNISolone SS 40 MG/ML VIAL IVP SCH ×2 (08:14→20:33)
[2019-07-01] MEDS: SERTRALINE 50 MG TAB PO SCH (08:14)
[2019-07-01] MEDS: ASPIRIN 81 MG TAB.CHEW PO SCH (08:14)
[2019-07-01] MEDS: metFORMIN 500 MG TAB PO SCH ×2 (08:14→16:37)
--- NOTE | 2019-07-01 08:16 | NUR ---
ADMINISTERED MEDS. EDUCATED ON SIDE EFFECTS. PATIENT TOLERATED WELL. ADMINISTERED PRN PAIN MED. WILL CONTINUE TO MONITOR THE PATIENT.
--- NOTE | 2019-07-01 10:20 | NUR ---
PATIENT AMBULATING AROUND THE HALLS, GAIT IS STEADY
[2019-07-01 10:38] LABS: POTASSIUM 3.5 mmol/L (3.5-5.1)
[2019-07-01 10:39] LABS: ANION GAP 15.3 (8-16); CARBON DIOXIDE 26.2 mmol/L (21-32)
[2019-07-01 10:40] LABS: CREATININE 0.9 mg/dL (0.6-1.3)
--- NOTE | 2019-07-01 11:01 | NUR ---
PATIENT LAYING IN BED. WILL CONTINUE TO MONITOR
[2019-07-01 11:02] LABS: MAGNESIUM 1.6 mg/dL (1.8-2.4); PHOSPHORUS 4.3 mg/dL (2.5-4.9)
[2019-07-01] MEDS: NACL 0.9% 1,000 ML IV SCH (12:23)
[2019-07-01] MEDS ORDERED: THEOPHYLLINE 80 MG/15 ML PO SCH (13:54)
--- NOTE | 2019-07-01 13:57 | NUR ---
PATIENT IN THE RESTROOM. SHE IS IN NO DISTRESS. WILL CONTINUE TO MONITOR
--- NOTE | 2019-07-01 14:25 | NUR ---
ADMINISTERED NIDHI MEDICATION. EDUCATED ON SIDE EFFECTS. WILL CONTINUE TO MONITOR THE PATIENT.
[2019-07-01] MEDS ORDERED: MAGNESIUM OXIDE 400 MG TAB PO SCH (15:22)
--- NOTE | 2019-07-01 16:43 | NUR ---
PATIENT WANTS A BREATHING TX. CALLED RT. PATIENT GOT MEDICATIONS. EDUCATED ON SIDE EFFECTS. WILL CONTINUE TO MONITOR
--- NOTE | 2019-07-01 17:36 | NUR ---
ADMINISTERED [address] GAMINO REQUEST OF BS OF 413. ADMINISTERED REPLACED BY [facility]. EDUCATED ON SIDE EFFECTS. PATIENT TOLERATED WELL
[2019-07-01] MEDS: LEVOFLOXACIN 750 MG/D5W PREMIX 150 ML IV SCH (18:39)
--- NOTE | 2019-07-01 19:05 | NUR ---
gave bedside report to legal aid nurse. patient endorsed in stable condition
--- NOTE | 2019-07-01 19:30 | NUR ---
ASSUMED CARE OF PATIENT, AWAKE, ALERT AND ORIENTED. LYING IN BED. NO COMPLAINS. CALL LIGHT WITHIN REACH.
--- NOTE | 2019-07-01 20:00 | NUR ---
CARE BOARD UPDATED. PLAN OF CARE DISCUSSED WITH PATIENT, VERBALIZED UNDERSTANDING WELL. CALL LIGHT WITHIN REACH. VITAL SIGNS STABLE.
[2019-07-01] MEDS: MONTELUKAST SODIUM 10 MG TAB PO SCH (20:33)
[2019-07-01] MEDS: INSULIN LANTUS 100 UNITS/ML 10 ML VIAL SUBQ SCH (20:44)
[2019-07-01] MEDS: guaiFENesin 20 MG/ML UDC PO PRN (21:15)
--- NOTE | 2019-07-01 21:30 | NUR ---
RT AT BEDSIDE FOR BREATHING TREATMENT. HS SNACK GIVEN. DUE MEDS GIVEN. CALL LIGHT WITHIN REACH.
--- NOTE | 2019-07-01 23:38 | NUR ---
ASLEEP NO COMPLAINS. VITAL SIGNS STABLE. CALL LIGHT WITHIN REACH.
[2019-07-02] MEDS: MORPHINE SULFATE 2 MG/ML SYR IVP PRN ×3 (02:17→09:48)
--- NOTE | 2019-07-02 02:17 | NUR ---
AWAKE. PAIN MEDS GIVEN ORDERED. CALL LIGHT WITHIN REACH.
[2019-07-02 03:49] VITALS: BP 111/61
--- NOTE | 2019-07-02 03:50 | NUR ---
AWAKE, NO COMPLAINS. VITAL SIGNS STABLE. CALL LIGHT WITHIN REACH.
[2019-07-02] MEDS: BLOOD GLUCOSE MONITORING 1 DEV DEV FS SCH (05:20)
[2019-07-02] MEDS: CLINDAMYCIN 300 MG in DEXTROSE 5% 50 ML IV SCH (05:20)
[2019-07-02] MEDS: INSULIN LISPRO SLIDING SCALE 100 UNITS/ML VIAL SUBQ PRN (06:16)
[2019-07-02] MEDS: PANTOPRAZOLE 40 MG TABEC PO SCH (06:21)
[2019-07-02] MEDS: guaiFENesin 20 MG/ML UDC PO PRN (06:21)
--- NOTE | 2019-07-02 06:30 | NUR ---
AWAKE, DUE MEDS GIVEN. PAIN MEDICATION GIVEN. CALL LIGHT WITHIN REACH.
[2019-07-02] MEDS ORDERED: ALBUTEROL SULFATE/IPRATROPIU 3 ML SOL IH SCH (07:00)
--- NOTE | 2019-07-02 07:23 | NUR ---
ENDORSED CARE AT BEDSIDE WITH ADOLPH RN, PATIENT INSTABLE CONDITION.
--- NOTE | 2019-07-02 07:24 | NUR ---
RECEIVED BEDSIDE REPORT FROM PHOTOVOLTAIC TESTING TECHNICIAN NURSE. PATIENT IS AWAKE, ALERT AND ORIENTEDX4. NO SIGNS OF DISTRESS ON RA. SKIN IS INTACT. PATIENT IS AMBULATORY. CONTINENT. IV ON R FA 22G INFUSING NS AT 20. CLEAN, DRY AND INTACT. PATIENT IS ABLE TO MAKE NEEDS KNOWN. BED IN LOW POSITION. CALL LIGHT WITHIN REACH. WILL CONTINUE TO MONITOR THE PATIENT
[2019-07-02 07:40] LABS: BASOPHILS % (AUTO) 0.2 % (0.0-2.0); HEMATOCRIT 35.2 % (36-48); HEMOGLOBIN 11.6 g/dL (12.0-16.0); LYMPHOCYTES # (AUTO) 1.7 K/uL (2.5-16.5); LYMPHOCYTES % (AUTO) 17.4 % (20.5-51.1); MEAN CORPUSCULAR HEMOGLOBIN 30 pg (27-31); MEAN CORPUSCULAR HGB CONC 33 g/dL (33-37); MEAN CORPUSCULAR VOLUME 90.6 fL (80-94); MONOCYTES # (AUTO) 0.5 K/uL (0.8-1.0); MONOCYTES % (AUTO) 4.7 % (1.7-9.3); NEUTROPHILS # (AUTO) 7.6 K/uL (1.8-7.7); NEUTROPHILS % (AUTO) 77.7 % (42.2-75.2); PLATELET COUNT (AUTO) 282 K/uL (140-450); RED BLOOD CELL COUNT(AUTO) 3.88 MIL/uL (4.20-5.40); RED CELL DISTRIBUTION WIDTH 14.8 % (11.6-13.7); WHITE BLOOD COUNT (AUTO) 9.7 K/uL (4.8-10.8)
[2019-07-02 07:42] LABS: MAGNESIUM 1.6 mg/dL (1.8-2.4)
[2019-07-02 08:00] VITALS: BP 130/72
[2019-07-02 08:02] LABS: ANION GAP 11.9 (8-16); CREATININE 0.8 mg/dL (0.6-1.3); POTASSIUM 4.9 mmol/L (3.5-5.1)
[2019-07-02] MEDS: SERTRALINE 50 MG TAB PO SCH (08:15)
[2019-07-02] MEDS: predniSONE 20 MG TAB PO SCH (08:15)
[2019-07-02] MEDS: LACTOBACILLUS RHAMNOSUS GG 1 EACH CAP PO SCH (08:15)
[2019-07-02] MEDS: metFORMIN 500 MG TAB PO SCH (08:16)
[2019-07-02] MEDS: ASPIRIN 81 MG TAB.CHEW PO SCH (08:16)
[2019-07-02] MEDS: methylPREDNISolone SS 40 MG/ML VIAL IVP SCH (08:17)
--- NOTE | 2019-07-02 08:25 | NUR ---
ADMINISTERED MEDS. PATIENT TOLERATED WELL. EDUCATED ON SIDE EFFECTS. WILL CONTINUE TO MONITOR THE PATIENT
[2019-07-02] MEDS ORDERED: BENZONATATE 100 MG CAPLF PO PRN (08:35)
[2019-07-02] MEDS ORDERED: THEOPHYLLINE 80 MG/15 ML PO SCH ×2 (09:00)
--- NOTE | 2019-07-02 09:13 | NUR ---
PATIENT IN NO DISTRESS. WILL CONTINUE TO MONITOR THE PATIENT.
[2019-07-02] MEDS ORDERED: ROB PO (10:10)
[2019-07-02] MEDS ORDERED: DEXT5SYR3 PO (10:10)
[2019-07-02] MEDS ORDERED: BENZ100C6 PO (10:10)
--- NOTE | 2019-07-02 10:16 | NUR ---
ADMINISTERED PRN COUGH MED. EDUCATED ON SIDE EFFECTS. PATIENT TOLERATED WELL. WILL CONTINUE TO MONITOR THE PATIENT
--- NOTE | 2019-07-02 10:55 | NUR ---
EDUCATED PATIENT ON DISEASE PROCESS, ABN S/SX, WHEN TO GO TO THE ER, EDUCATED ON MEDS, MEDS ELECTRONICALLY SENT TO PREFERRED PHARMACY, [facility] IN [place]. EDUCATED ON FOLLOW UP W PCP. PATIENT REFUSED PNA VACCINE AT THIS TIME, SHE STATED SHE WILL GET IT FROM [facility] WHEN SHE DOES NOT FEEL TOO SICK. FLU VACCINE UP TO DATE. ID BANDS REMOVED. TELE REMOVED. PATIENT SIGNED PAPERWORK AND GATHERED ALL BELONGINGS. LEFT WALKING WITH DAUGHTER TO GO HOME. PATIENT DISCHARGED IN STABLE CONDITION
== END 2019-07-02 10:55 | disposition home or self-care (01) | DRG 720 ==
LOC: MED 16:59 → MTU 18:46
PROVIDERS: ADMIT General Practice; ATTEND General Practice
DX: A41.9 Sepsis, unspecified organism (principal); J96.21 Acute and chronic respiratory failure with hypoxia; J18.9 Pneumonia, unspecified organism; E11.40 Type 2 diabetes mellitus with diabetic neuropathy, unspecified; E87.8 Other disorders of electrolyte and fluid balance, not elsewhere classified; I48.91 Unspecified atrial fibrillation; E11.65 Type 2 diabetes mellitus with hyperglycemia; E83.42 Hypomagnesemia; J44.1 Chronic obstructive pulmonary disease with (acute) exacerbation; E87.1 Hypo-osmolality and hyponatremia; K21.9 Gastro-esophageal reflux disease without esophagitis; I10 Essential (primary) hypertension; M81.0 Age-related osteoporosis without current pathological fracture; F41.9 Anxiety disorder, unspecified; G47.00 Insomnia, unspecified; E87.5 Hyperkalemia; Z88.1 Allergy status to other antibiotic agents; Z88.0 Allergy status to penicillin; Z88.2 Allergy status to sulfonamides; Z88.8 Allergy status to other drugs, medicaments and biological substances; Z83.3 Family history of diabetes mellitus; Z82.49 Family history of ischemic heart disease and other diseases of the circulatory system; Z83.49 Family history of other endocrine, nutritional and metabolic diseases; Z87.891 Personal history of nicotine dependence; J20.9 Acute bronchitis, unspecified
CPT/HCPCS: 36415; 36600; 71045; 80048; 80053; 80198; 80305; 81001; 82150; 82803; 82948; 83036; 83605; 83690; 83735; 83880; 84100; 84436; 84443; 84484; 85025; 85379; 85610; 85730; 87040; 87081; 87086; 93970; 94640; 96365; 96375; 99291; J1644; J1815; J1956; J2270; J2920; J2930; J3370; J3490; J7030; J7060; J7512; J7613; J7620; J7626; J7644; Q0092

== ENCOUNTER 2019-07-30 11:47 | Inpatient (IN) | payer OTHER ==
[~2019-07-30] VITALS: Ht 157.5 cm; Wt 68.0 kg
[~2019-07-30 11:47] MED LIST changes: +BENZ100C6 PO; -LEVO750T2 PO; -PRED20TA5 PO; +ROB PO
[2019-07-30 11:50] VITALS: BP 191/95
[2019-07-30] MEDS ORDERED: ALBUTEROL SULFATE/IPRATROPIU 3 ML SOL IH ONE ×2 (12:15→13:45)
[2019-07-30] MEDS ORDERED: NACL 0.9% 500 ML IV ONE (12:15)
[2019-07-30] MEDS ORDERED: methylPREDNISolone SS 125 MG/2 ML VIAL IVP ONE (12:15)
[2019-07-30] MEDS ORDERED: MAG SULF 2000 MG/WATER PREMIX 50 ML IV ONE (12:15)
[2019-07-30 12:32] LABS: BASOPHILS # (AUTO) 0.1 K/uL (0.00-0.22); BASOPHILS % (AUTO) 0.8 % (0.0-2.0); EOSINOPHILS # (AUTO) 0.2 K/uL (0-0.4); HEMATOCRIT 43.3 % (36-48); HEMOGLOBIN 14.2 g/dL (12.0-16.0); LYMPHOCYTES # (AUTO) 2.3 K/uL (2.5-16.5); MEAN CORPUSCULAR HEMOGLOBIN 30 pg (27-31); MEAN CORPUSCULAR HGB CONC 33 g/dL (33-37); MEAN CORPUSCULAR VOLUME 92.5 fL (80-94); MONOCYTES # (AUTO) 0.5 K/uL (0.8-1.0); MONOCYTES % (AUTO) 5.5 % (1.7-9.3); NEUTROPHILS # (AUTO) 6.5 K/uL (1.8-7.7); NEUTROPHILS % (AUTO) 67.7 % (42.2-75.2); PLATELET COUNT (AUTO) 313 K/uL (140-450); RED BLOOD CELL COUNT(AUTO) 4.68 MIL/uL (4.20-5.40); RED CELL DISTRIBUTION WIDTH 15.1 % (11.6-13.7); WHITE BLOOD COUNT (AUTO) 9.6 K/uL (4.8-10.8)
[2019-07-30] MEDS ORDERED: KETOROLAC 30 MG/ML VIAL IVP ONE (12:35)
[2019-07-30 12:45] LABS: ALBUMIN 3.8 g/dL (3.4-5.0); CARBON DIOXIDE 27.8 mmol/L (21-32); CREATININE 0.9 mg/dL (0.6-1.3); POTASSIUM 4.8 mmol/L (3.5-5.1); TOTAL BILIRUBIN 0.3 mg/dL (0.0-1.0)
[2019-07-30] MEDS ORDERED: INSULIN REGULAR, HUMAN 100 UNIT/ML VIAL IVP ONE (12:50)
[2019-07-30] MEDS ORDERED: MORPHINE SULFATE 2 MG/ML SYR IVP ONE (13:45)
[2019-07-30] MEDS ORDERED: ONDANSETRON 4 MG/2 ML VIAL IM/IVP PRN (15:50)
[2019-07-30] MEDS ORDERED: ALBUTEROL SULFATE/IPRATROPIU 3 ML SOL IH PRN (15:50)
[2019-07-30] MEDS ORDERED: DOCUSATE SODIUM 100 MG GELCAP PO PRN (15:50)
[2019-07-30] MEDS ORDERED: LORazepam 2 MG/ML VIAL IM/IVP PRN (15:50)
[2019-07-30] MEDS ORDERED: ACETAMINOPHEN 325 MG TAB PO PRN (15:50)
[2019-07-30 16:37] LABS: PROTHROMBIN TIME 9.3 secs (10.8-13.4)
[2019-07-30 16:45] VITALS: BP 141/68
[2019-07-30] MEDS ORDERED: DEXTROSE 50% 50 ML SYR IVP PRN (16:45)
[2019-07-30] MEDS ORDERED: BENZONATATE 100 MG CAPLF PO PRN (16:55)
[2019-07-30] MEDS ORDERED: guaiFENesin 20 MG/ML UDC PO PRN (16:55)
[2019-07-30] MEDS ORDERED: NON-FORMULARY ITEM (Tizanidine HCl* (Zanaflex*) 4 MG) PO SCH (16:55)
[2019-07-30 16:56] LABS: AMYLASE 24 U/L (25-115); LIPASE 207 U/L (73-393); MAGNESIUM 1.9 mg/dL (1.8-2.4); PHOSPHORUS 4.1 mg/dL (2.5-4.9); THYROID STIMULATING HORMONE 5.12 uIU/mL (0.34-3.74)
[2019-07-30] MEDS: NACL 0.9% 1,000 ML IV SCH (17:14)
[2019-07-30] MEDS: MORPHINE SULFATE 2 MG/ML SYR IVP PRN ×2 (17:15→21:10)
[2019-07-30] MEDS ORDERED: tiZANidine 4 MG TAB PO PRN (17:15)
[2019-07-30] MEDS: LEVOFLOXACIN 750 MG/D5W PREMIX 150 ML IV SCH (17:40)
[2019-07-30 20:00] VITALS: BP 138/64
[2019-07-30] MEDS: ALBUTEROL SULFATE/IPRATROPIU 3 ML SOL IH SCH (20:19)
[2019-07-30] MEDS ORDERED: ZOLPIDEM 5 MG TAB PO PRN (21:00)
[2019-07-30] MEDS: BLOOD GLUCOSE MONITORING 1 DEV DEV FS SCH (21:05)
[2019-07-30] MEDS: methylPREDNISolone SS 40 MG/ML VIAL IVP SCH (21:11)
[2019-07-30] MEDS: MONTELUKAST SODIUM 10 MG TAB PO SCH (21:11)
[2019-07-30] MEDS: INSULIN LISPRO SLIDING SCALE 100 UNITS/ML VIAL SUBQ PRN (21:33)
[2019-07-30] MEDS: THEOPHYLLINE 80 MG/15 ML PO SCH (21:36)
[2019-07-31 01:21] VITALS: BP 115/65
[2019-07-31] MEDS: MORPHINE SULFATE 2 MG/ML SYR IVP PRN ×4 (01:23→22:38)
[2019-07-31] MEDS: NACL 0.9% 1,000 ML IV SCH ×3 (01:47→16:12)
[2019-07-31 04:37] VITALS: BP 149/75
[2019-07-31] MEDS: methylPREDNISolone SS 40 MG/ML VIAL IVP SCH ×3 (05:17→22:16)
[2019-07-31] MEDS: THEOPHYLLINE 80 MG/15 ML PO SCH ×2 (05:17→14:43)
[2019-07-31] MEDS: PANTOPRAZOLE 40 MG TABEC PO SCH (05:18)
[2019-07-31] MEDS: BLOOD GLUCOSE MONITORING 1 DEV DEV FS SCH ×4 (05:20→21:00)
[2019-07-31] MEDS: HYDROcodone/APAP 5/325 MG 1 TAB TAB PO PRN ×2 (05:26→18:44)
[2019-07-31] MEDS: INSULIN LISPRO SLIDING SCALE 100 UNITS/ML VIAL SUBQ PRN ×5 (05:44→22:20)
[2019-07-31] MEDS: ALBUTEROL SULFATE/IPRATROPIU 3 ML SOL IH SCH ×3 (06:47→19:27)
[2019-07-31 07:00] LABS: ANION GAP 12.8 (8-16); CARBON DIOXIDE 25.4 mmol/L (21-32); CREATININE 0.8 mg/dL (0.6-1.3); POTASSIUM 5.2 mmol/L (3.5-5.1)
[2019-07-31 07:05] LABS: BASOPHILS % (AUTO) 0.2 % (0.0-2.0); HEMATOCRIT 37.9 % (36-48); HEMOGLOBIN 12.3 g/dL (12.0-16.0); LYMPHOCYTES # (AUTO) 1.1 K/uL (2.5-16.5); LYMPHOCYTES % (AUTO) 11.3 % (20.5-51.1); MEAN CORPUSCULAR HEMOGLOBIN 30 pg (27-31); MEAN CORPUSCULAR HGB CONC 33 g/dL (33-37); MEAN CORPUSCULAR VOLUME 92.2 fL (80-94); MONOCYTES # (AUTO) 0.2 K/uL (0.8-1.0); MONOCYTES % (AUTO) 2.2 % (1.7-9.3); NEUTROPHILS # (AUTO) 8.2 K/uL (1.8-7.7); NEUTROPHILS % (AUTO) 86.3 % (42.2-75.2); PLATELET COUNT (AUTO) 278 K/uL (140-450); RED BLOOD CELL COUNT(AUTO) 4.11 MIL/uL (4.20-5.40); RED CELL DISTRIBUTION WIDTH 14.9 % (11.6-13.7); WHITE BLOOD COUNT (AUTO) 9.5 K/uL (4.8-10.8)
[2019-07-31 07:14] LABS: CHOL/HDL RATIO 2.6 (1-4.5); MAGNESIUM 1.9 mg/dL (1.8-2.4); PHOSPHORUS 3.1 mg/dL (2.5-4.9)
[2019-07-31 08:00] VITALS: BP 140/68
[2019-07-31] MEDS ORDERED: THEOPHYLLINE 300 MG TABER PO SCH (09:00)
[2019-07-31] MEDS ORDERED: methylPREDNISolone SS 40 MG/ML VIAL IVP SCH (09:00)
[2019-07-31] MEDS: metFORMIN 500 MG TAB PO SCH ×2 (09:35→16:18)
[2019-07-31] MEDS: ASPIRIN 81 MG TAB.CHEW PO SCH (09:37)
[2019-07-31] MEDS: GABAPENTIN 300 MG CAP PO SCH (09:38)
[2019-07-31] MEDS: LACTOBACILLUS RHAMNOSUS GG 1 EACH CAP PO SCH (09:38)
[2019-07-31] MEDS: SERTRALINE 50 MG TAB PO SCH (09:39)
[2019-07-31] MEDS: INSULIN LANTUS 100 UNITS/ML 10 ML VIAL SUBQ SCH ×2 (10:05→22:19)
[2019-07-31 12:00] VITALS: BP 137/68
[2019-07-31 16:37] VITALS: BP 133/70
[2019-07-31] MEDS: LEVOFLOXACIN 750 MG/D5W PREMIX 150 ML IV SCH (17:11)
[2019-07-31] MEDS: ACETYLCYSTEINE 10% (100 MG/ML) 100 MG/ML VIAL INH SCH (19:27)
[2019-07-31 20:00] VITALS: BP 143/82
[2019-07-31] MEDS ORDERED: INSULIN LANTUS 100 UNITS/ML 10 ML VIAL SUBQ SCH (21:00)
[2019-07-31 21:59] LABS: APPEARANCE,URINE CLEAR (CLEAR); BILIRUBIN,URINE NEGATIVE (NEGATIVE); BLOOD, URINE TRACE-I (NEGATIVE); LEUKOCYTE ESTERASE ,URINE NEGATIVE (NEGATIVE); NITRITE, URINE NEGATIVE (NEGATIVE); UGLUCOSE 3+ (NEGATIVE)
[2019-07-31 22:04] LABS: COLOR,URINE STRAW (YELLOW)
[2019-07-31 22:05] LABS: BARBITURATE, URINE NEG. ng/ml (NEG <=200); BENZODIAZEPINE, URINE NEG. ng/mL (NEG <=200); CANNABINOID, URINE NEG. ng/mL (NEG <=50); COCAINE, URINE NEG. ng/mL (NEG <=300); OPIATE, URINE NEG. ng/mL (NEG <=2000); PHENCYCLIDINE SCREEN,URINE NEG. ng/mL (NEG <=25)
[2019-07-31 22:09] LABS: RBC,URINE NONE SEEN /HPF (0-5); WBC,URINE NONE SEEN /HPF (0-5)
[2019-08-01] VITALS: BP 144/73
[2019-08-01] MEDS: MONTELUKAST SODIUM 10 MG TAB PO SCH ×2 (00:48→21:31)
[2019-08-01] MEDS: THEOPHYLLINE 80 MG/15 ML PO SCH ×4 (00:49→21:32)
[2019-08-01] MEDS: MORPHINE SULFATE 2 MG/ML SYR IVP PRN ×5 (02:54→19:55)
[2019-08-01 04:00] VITALS: BP 136/68
[2019-08-01] MEDS: PANTOPRAZOLE 40 MG TABEC PO SCH (06:17)
[2019-08-01] MEDS: ALBUTEROL SULFATE/IPRATROPIU 3 ML SOL IH SCH ×3 (06:39→18:53)
[2019-08-01] MEDS: ACETYLCYSTEINE 10% (100 MG/ML) 100 MG/ML VIAL INH SCH ×2 (06:42→18:53)
[2019-08-01] MEDS: INSULIN LISPRO SLIDING SCALE 100 UNITS/ML VIAL SUBQ PRN ×4 (07:03→21:37)
[2019-08-01] MEDS: BLOOD GLUCOSE MONITORING 1 DEV DEV FS SCH ×4 (07:41→21:31)
[2019-08-01] MEDS: NACL 0.9% 1,000 ML IV SCH (07:49)
[2019-08-01 08:00] VITALS: BP 96/50
[2019-08-01] MEDS: metFORMIN 500 MG TAB PO SCH ×2 (08:00→17:44)
[2019-08-01] MEDS ORDERED: INSULIN LANTUS 100 UNITS/ML 10 ML VIAL SUBQ SCH (09:00)
[2019-08-01] MEDS: LACTOBACILLUS RHAMNOSUS GG 1 EACH CAP PO SCH (09:17)
[2019-08-01] MEDS: GABAPENTIN 300 MG CAP PO SCH (09:18)
[2019-08-01] MEDS: ASPIRIN 81 MG TAB.CHEW PO SCH (09:18)
[2019-08-01] MEDS: SERTRALINE 50 MG TAB PO SCH (09:19)
[2019-08-01] MEDS: INSULIN LANTUS 100 UNITS/ML 10 ML VIAL SUBQ SCH ×2 (09:20→21:41)
[2019-08-01] MEDS: methylPREDNISolone SS 40 MG/ML VIAL IVP SCH ×2 (09:21→21:31)
[2019-08-01 10:09] LABS: ANION GAP 11.9 (8-16); CARBON DIOXIDE 25.6 mmol/L (21-32); CREATININE 0.8 mg/dL (0.6-1.3); POTASSIUM 4.5 mmol/L (3.5-5.1)
[2019-08-01 10:12] LABS: MAGNESIUM 1.5 mg/dL (1.8-2.4); PHOSPHORUS 3.1 mg/dL (2.5-4.9)
[2019-08-01 10:55] LABS: HEMATOCRIT 37.9 % (36-48); HEMOGLOBIN 12.1 g/dL (12.0-16.0); MEAN CORPUSCULAR HEMOGLOBIN 30 pg (27-31); MEAN CORPUSCULAR HGB CONC 32 g/dL (33-37); MEAN CORPUSCULAR VOLUME 93.2 fL (80-94); PLATELET COUNT (AUTO) 249 K/uL (140-450); RED BLOOD CELL COUNT(AUTO) 4.07 MIL/uL (4.20-5.40)
[2019-08-01 12:39] LABS: LYMPHOCYTES % (MANUAL) 17 % (20-46); MONOCYTES % (MANUAL) 3 % (5-12)
[2019-08-01] MEDS ORDERED: MAG SULF 2000 MG/WATER PREMIX 50 ML IV SCH (13:00)
[2019-08-01 16:00] VITALS: BP 121/71
[2019-08-01] MEDS: LEVOFLOXACIN 750 MG/D5W PREMIX 150 ML IV SCH (17:45)
[2019-08-01] MEDS: BUDESONIDE 0.5 MG/2 ML NEBU INH SCH (19:04)
[2019-08-02 00:44] VITALS: BP 141/45
[2019-08-02] MEDS: MORPHINE SULFATE 2 MG/ML SYR IVP PRN ×4 (00:50→12:47)
[2019-08-02] MEDS: THEOPHYLLINE 80 MG/15 ML PO SCH ×2 (04:58→12:47)
[2019-08-02] MEDS: PANTOPRAZOLE 40 MG TABEC PO SCH (05:34)
[2019-08-02] MEDS: BLOOD GLUCOSE MONITORING 1 DEV DEV FS SCH ×2 (05:49→11:50)
[2019-08-02] MEDS: INSULIN LISPRO SLIDING SCALE 100 UNITS/ML VIAL SUBQ PRN (05:50)
[2019-08-02] MEDS ORDERED: glipiZIDE 5 MG TAB PO SCH (06:30)
[2019-08-02] MEDS: ALBUTEROL SULFATE/IPRATROPIU 3 ML SOL IH SCH ×2 (07:04→13:18)
[2019-08-02] MEDS: ACETYLCYSTEINE 10% (100 MG/ML) 100 MG/ML VIAL INH SCH (07:04)
[2019-08-02] MEDS: BUDESONIDE 0.5 MG/2 ML NEBU INH SCH (07:21)
[2019-08-02 08:00] VITALS: BP 141/91
[2019-08-02] MEDS: metFORMIN 500 MG TAB PO SCH (08:42)
[2019-08-02] MEDS: methylPREDNISolone SS 40 MG/ML VIAL IVP SCH (08:42)
[2019-08-02] MEDS: ASPIRIN 81 MG TAB.CHEW PO SCH (08:42)
[2019-08-02] MEDS: GABAPENTIN 300 MG CAP PO SCH (08:43)
[2019-08-02] MEDS: SERTRALINE 50 MG TAB PO SCH (08:43)
[2019-08-02] MEDS: LACTOBACILLUS RHAMNOSUS GG 1 EACH CAP PO SCH (08:43)
[2019-08-02] MEDS: INSULIN LANTUS 100 UNITS/ML 10 ML VIAL SUBQ SCH (08:50)
[2019-08-02 09:55] LABS: HEMATOCRIT 40.5 % (36-48); MEAN CORPUSCULAR HEMOGLOBIN 30 pg (27-31); MEAN CORPUSCULAR HGB CONC 32 g/dL (33-37); MEAN CORPUSCULAR VOLUME 93.1 fL (80-94); PLATELET COUNT (AUTO) 299 K/uL (140-450); RED BLOOD CELL COUNT(AUTO) 4.35 MIL/uL (4.20-5.40); RED CELL DISTRIBUTION WIDTH 15.2 % (11.6-13.7); WHITE BLOOD COUNT (AUTO) 10.7 K/uL (4.8-10.8)
[2019-08-02 10:27] LABS: ANION GAP 11.9 (8-16); CARBON DIOXIDE 28.8 mmol/L (21-32); CREATININE 0.8 mg/dL (0.6-1.3); POTASSIUM 3.7 mmol/L (3.5-5.1)
[2019-08-02 10:39] LABS: BASOPHILS % (MANUAL) 0 % (0-2); EOSINOPHILS % (MANUAL) 0 % (0-4); LYMPHOCYTES % (MANUAL) 28 % (20-46); MONOCYTES % (MANUAL) 5 % (5-12)
[2019-08-02] MEDS ORDERED: MAG SULF 2000 MG/WATER PREMIX 50 ML IV SCH (11:00)
[2019-08-02] MEDS ORDERED: SODIUM PHOS / POTASSIUM PHOS 1 PKT PDR PO SCH (13:00)
[2019-08-02] MEDS ORDERED: INSU100S22 SUBQ (13:52)
[2019-08-02] MEDS ORDERED: FLUT1BLS3 IH (13:53)
[2019-08-02] MEDS ORDERED: BENZ-196 PO (13:55)
[2019-08-02] MEDS ORDERED: PRED10TA6 PO (13:55)
[2019-08-02] MEDS ORDERED: LEVO750T2 PO (13:55)
== END 2019-08-02 14:45 | disposition home or self-care (01) | DRG 133 ==
LOC: MED 11:47 → MMU 16:07
PROVIDERS: ADMIT Family Medicine; ATTEND Family Medicine
DX: J96.20 Acute and chronic respiratory failure, unspecified whether with hypoxia or hypercapnia (principal); E11.00 Type 2 diabetes mellitus with hyperosmolarity without nonketotic hyperglycemic-hyperosmolar coma (NKHHC); E11.40 Type 2 diabetes mellitus with diabetic neuropathy, unspecified; E87.8 Other disorders of electrolyte and fluid balance, not elsewhere classified; E11.65 Type 2 diabetes mellitus with hyperglycemia; Z99.81 Dependence on supplemental oxygen; E87.1 Hypo-osmolality and hyponatremia; J40 Bronchitis, not specified as acute or chronic; G47.00 Insomnia, unspecified; F32.9 Major depressive disorder, single episode, unspecified; K21.9 Gastro-esophageal reflux disease without esophagitis; E83.42 Hypomagnesemia; E87.5 Hyperkalemia; I48.91 Unspecified atrial fibrillation; I10 Essential (primary) hypertension; M81.0 Age-related osteoporosis without current pathological fracture; F41.9 Anxiety disorder, unspecified; G89.29 Other chronic pain; M54.9 Dorsalgia, unspecified; J44.1 Chronic obstructive pulmonary disease with (acute) exacerbation; Z87.891 Personal history of nicotine dependence; Z79.4 Long term (current) use of insulin; Z90.49 Acquired absence of other specified parts of digestive tract; Z79.899 Other long term (current) drug therapy; Z88.1 Allergy status to other antibiotic agents; Z88.0 Allergy status to penicillin; Z88.8 Allergy status to other drugs, medicaments and biological substances; Z83.3 Family history of diabetes mellitus; Z83.79 Family history of other diseases of the digestive system; Z83.49 Family history of other endocrine, nutritional and metabolic diseases; Z82.49 Family history of ischemic heart disease and other diseases of the circulatory system; Z91.14 Patient's other noncompliance with medication regimen
CPT/HCPCS: 36415; 36600; 71045; 80048; 80053; 80305; 81001; 82140; 82150; 82803; 82948; 83036; 83690; 83735; 83880; 84100; 84443; 84484; 85025; 85610; 85730; 87040; 87081; 87086; 93005; 93925; 93970; 94640; 96365; 96366; 96375; 99285; G0482; J1644; J1815; J1885; J1956; J2270; J2920; J2930; J3475; J7030; J7620; J7626; Q0092

== ENCOUNTER 2019-12-02 11:13 | Inpatient (IN) | payer OTHER ==
[~2019-12-02] VITALS: Ht 157.5 cm; Wt 68.0 kg
[~2019-12-02 11:13] MED LIST changes: -ASPI-1718 PO; +ASPI-1822 PO; +BENZ-196 PO; -BENZ100C6 PO; -DEXT5SYR3 PO; +FLUT1BLS3 IH; -INSU10SU2 SC; +LEVO750T2 PO; +PRED10TA6 PO; -ROB PO
[2019-12-02 11:15] VITALS: BP 153/92
--- NOTE | 2019-12-02 11:20 | NUR ---
Patient ambulated to bed 11. RN evaluating patient at bedside.
--- NOTE | 2019-12-02 11:21 | NUR ---
64 Y/O F C/C CHEST PAIN AND SOB X 1 MONTH. CHEST PAIN 9/10 SHARP; PAIN IN THE STERNUM AREA, NON-RADIATING. PT SPO2 IN ER 97% RA, LUNG SOUNDS COARSE BILATERAL. PT ALLERGIES PNC. HX ASTHMA,COPD,DM,AFIB. RX METFORMIN,ALBUTEROL. NO N/V/D. SIDE RAIL X1.
[2019-12-02] MEDS ORDERED: ALBUTEROL SULFATE/IPRATROPIU 3 ML SOL IH ONE (11:25)
--- NOTE | 2019-12-02 11:27 | NUR ---
DR ROJAS AT BEDSIDE
[2019-12-02] MEDS ORDERED: methylPREDNISolone SS 125 MG/2 ML VIAL IVP ONE (11:30)
[2019-12-02] MEDS ORDERED: ALBUTEROL 0.083% 2.5 MG/3 ML NEBU INH ONE (11:30)
[2019-12-02] MEDS ORDERED: IPRATROPIUM 0.02% 0.5 MG/2.5 ML NEBU INH ONE (11:30)
--- NOTE | 2019-12-02 11:43 | NUR ---
LAB AT BEDSIDE
--- NOTE | 2019-12-02 11:43 | NUR ---
RT AT BEDSIDE
[2019-12-02 12:03] LABS: BASOPHILS # (AUTO) 0.1 K/uL (0.00-0.22); BASOPHILS % (AUTO) 0.6 % (0.0-2.0); EOSINOPHILS % (AUTO) 0.4 % (0.0-4.0); HEMATOCRIT 42.1 % (36-48); HEMOGLOBIN 13.5 g/dL (12.0-16.0); LYMPHOCYTES # (AUTO) 1.8 K/uL (2.5-16.5); LYMPHOCYTES % (AUTO) 17.2 % (20.5-51.1); MEAN CORPUSCULAR HEMOGLOBIN 30 pg (27-31); MEAN CORPUSCULAR HGB CONC 32 g/dL (33-37); MEAN CORPUSCULAR VOLUME 91.9 fL (80-94); MONOCYTES # (AUTO) 0.6 K/uL (0.8-1.0); MONOCYTES % (AUTO) 5.4 % (1.7-9.3); NEUTROPHILS # (AUTO) 7.8 K/uL (1.8-7.7); NEUTROPHILS % (AUTO) 76.4 % (42.2-75.2); PLATELET COUNT (AUTO) 316 K/uL (140-450); RED BLOOD CELL COUNT(AUTO) 4.58 MIL/uL (4.20-5.40); RED CELL DISTRIBUTION WIDTH 15.6 % (11.6-13.7); WHITE BLOOD COUNT (AUTO) 10.2 K/uL (4.8-10.8)
[2019-12-02 12:22] LABS: ANION GAP 12.8 (8-16); CARBON DIOXIDE 26.9 mmol/L (21-32); CREATININE 1.2 mg/dL (0.6-1.3); POTASSIUM 4.7 mmol/L (3.5-5.1)
[2019-12-02] MEDS ORDERED: ACETAMINOPHEN 325 MG TAB PO ONE (13:00)
[2019-12-02] MEDS ORDERED: KETOROLAC 30 MG/ML VIAL IVP ONE (13:00)
[2019-12-02] MEDS ORDERED: IBUPROFEN 600 MG TAB PO ONE (13:00)
[2019-12-02] MEDS: NACL 0.9% 1,000 ML IV SCH (14:17)
[2019-12-02] MEDS ORDERED: HYDROcodone/APAP 5/325 MG 1 TAB TAB PO PRN (14:20)
[2019-12-02] MEDS ORDERED: DEXTROSE 50% 50 ML SYR IVP PRN (14:20)
[2019-12-02] MEDS ORDERED: ALBUTEROL SULFATE/IPRATROPIU 3 ML SOL IH PRN (14:20)
[2019-12-02] MEDS ORDERED: ONDANSETRON 4 MG/2 ML VIAL IM/IVP PRN (14:20)
[2019-12-02] MEDS ORDERED: DOCUSATE SODIUM 100 MG GELCAP PO PRN (14:20)
[2019-12-02] MEDS ORDERED: ACETAMINOPHEN 325 MG TAB PO PRN (14:20)
[2019-12-02] MEDS ORDERED: ALBUTEROL 0.083% 2.5 MG/3 ML NEBU INH SCH (14:50)
[2019-12-02 15:00] VITALS: BP 147/68
--- NOTE | 2019-12-02 15:00 | NUR ---
RECEIVED PATIENT FROM [facility] ED RN VIA TAHIRA. PATIENT AMBULATED TO THE ROOM. AAOX4. RESPIRATIONS EVEN AND UNLABORED, RHONCHI ALL OVER LUNGS. INTERMITTENT NONPRODUCTIVE COUGH. VISIBLE CHEST RISE NOTED. PATIENT C/O OF CHEST PAIN, PRESSURE. ON TELE MONITORING. ABDOMEN ROUND AND NONTENDER. SKIN WARM, DRY, AND INTACT. IV IN THE LEFT AC G20, SALINE LOCK. IV PATENT. MRSA OF NARES COLLECTED. FLU SWAB OF NARES COLLECTED. BED LOCK AND IN LOW POSITION. CALL LIGHT IS WITHIN REACH. WILL CONTINUE TO MONITOR.
--- NOTE | 2019-12-02 15:01 | NUR ---
PATIENT DENIES SOB
[2019-12-02 15:03] LABS: MAGNESIUM 1.9 mg/dL (1.8-2.4); THYROID STIMULATING HORMONE 2.24 uIU/mL (0.34-3.74)
--- NOTE | 2019-12-02 15:03 | NUR ---
HANG 1000 ML NS AT 50 ML/HR
--- NOTE | 2019-12-02 15:05 | NUR ---
Patient will be admitted to care of [facility]. Admited to TELEMETRY. Will go to room 119A. Belongings list completed. Report to PRINCESS ANGULO.
--- NOTE | 2019-12-02 15:10 | NUR ---
EXPLAINED TO PATIENT I NEED TO COLLECT URINE SAMPLE. PATIENT VERBALIZED UNDERSTANDING.
[2019-12-02 15:11] LABS: PROTHROMBIN TIME 8.9 secs (10.8-13.4)
--- NOTE | 2019-12-02 15:20 | NUR ---
RT IS WITH PATIENT GIVING BREATHING TREATMENT
[2019-12-02] MEDS: MORPHINE SULFATE 2 MG/ML SYR IVP PRN ×3 (15:31→23:38)
[2019-12-02] MEDS: LACTOBACILLUS RHAMNOSUS GG 1 EACH CAP PO SCH (15:32)
--- NOTE | 2019-12-02 15:35 | NUR ---
GIVEN MORPHINE FOR CHEST PAIN 05/30. GIVEN CULTURELLE PO. EXPLAINED TO PATIENT MEDICATIONS AND SIDE EFFECTS. PATIENT VERBALIZED UNDERSTANDING. BED IN LOW POSITION. CALL LIGHT IS WITHIN REACH. WILL CONTINUE TO MONITOR
[2019-12-02] MEDS ORDERED: VANCOMYCIN PER PHARMACY MC PRN (15:45)
[2019-12-02] MEDS ORDERED: LEVOFLOXACIN 750 MG/D5W PREMIX 150 ML IV SCH (16:00)
--- NOTE | 2019-12-02 16:00 | NUR ---
PER PATIENT, SHE HAD HER FLU AND PNA VACCINES LAST JUL 2019.
[2019-12-02] MEDS: BLOOD GLUCOSE MONITORING 1 DEV DEV FS SCH ×2 (16:50→20:46)
--- NOTE | 2019-12-02 16:54 | NUR ---
BLOOD SUGAR CHECK: 467. DR. WEINBERG IS AWARE. WILL GIVE 10 UNITS OF INSULIN
[2019-12-02] MEDS: metFORMIN 500 MG TAB PO SCH (17:07)
[2019-12-02 17:18] LABS: APPEARANCE,URINE CLEAR (CLEAR); BILIRUBIN,URINE NEGATIVE (NEGATIVE); BLOOD, URINE 1+ (NEGATIVE); COLOR,URINE YELLOW (YELLOW); LEUKOCYTE ESTERASE ,URINE NEGATIVE (NEGATIVE); NITRITE, URINE NEGATIVE (NEGATIVE); PH,URINE 5.5 (5.0-9.0); UGLUCOSE 1+ (NEGATIVE)
[2019-12-02 17:40] LABS: RBC,URINE 0-5 /HPF (0-5); WBC,URINE 0-5 /HPF (0-5)
[2019-12-02] MEDS: INSULIN LISPRO SLIDING SCALE 100 UNITS/ML VIAL SUBQ PRN ×2 (17:40→20:42)
--- NOTE | 2019-12-02 17:42 | NUR ---
ADMINISTERED 10 UNITS OF INSULIN IN THE RIGHT UPPER ARM. EXPLAINED TO PATIENT MED AND SIDE EFFECTS. PATIENT VERBALIZED UNDERSTANDING. BED IN LOW POSITION. CALL LIGHT IS WITHIN REACH.
[2019-12-02 17:49] LABS: BARBITURATE, URINE NEG. ng/ml (NEG <=200); BENZODIAZEPINE, URINE NEG. ng/mL (NEG <=200); CANNABINOID, URINE NEG. ng/mL (NEG <=50); COCAINE, URINE NEG. ng/mL (NEG <=300); OPIATE, URINE POS. ng/mL (NEG <=2000); PHENCYCLIDINE SCREEN,URINE NEG. ng/mL (NEG <=25)
[2019-12-02] MEDS ORDERED: VANCOMYCIN 1,000 MG in DEXTROSE 5% 250 ML IV SCH (18:00)
--- NOTE | 2019-12-02 18:09 | NUR ---
PATIENT IS EATING DINNER AT THIS TIME. NO SOB. NO CHEST PAIN. BED IN LOW POSITION. CALL LIGHT IS WITHIN REACH. WILL CONTINUE TO MONITOR
--- NOTE | 2019-12-02 18:13 | NUR ---
ALLERGY BAND IN PLACE
[2019-12-02] MEDS ORDERED: ACETYLCYSTEINE 10% (100 MG/ML) 100 MG/ML VIAL ONE (18:53)
--- NOTE | 2019-12-02 18:56 | NUR ---
PATIENT C/O OF CHEST PAIN 04/29. MORPHINE IS NOT DUE YET. OFFERED NORCO BUT PATIENT REFUSED.
[2019-12-02] MEDS ORDERED: ALBUTEROL SULFATE/IPRATROPIU 3 ML SOL IH SCH (19:00)
[2019-12-02] MEDS ORDERED: ACETYLCYSTEINE 10% (100 MG/ML) 100 MG/ML VIAL INH SCH ×2 (19:00)
--- NOTE | 2019-12-02 19:02 | NUR ---
ENDORSED PATIENT TO STITCHING DEPARTMENT SUPERVISOR NURSE FOR CONTINUITY OF CARE. PATIENT IS IN STABLE CONDITION. NO SOB. RESPIRATORY EVEN AND UNLABORED, ON 2L O2 VIA NC.
[2019-12-02] MEDS: LORazepam 2 MG/ML VIAL IM/IVP PRN (19:17)
--- NOTE | 2019-12-02 19:17 | NUR ---
PATIENT ANXIOUS. MEDICATED ORDERED. CALL LIGHT WITHIN REACH. WILL CONTINUE TO MONITOR.
[2019-12-02] MEDS: BUDESONIDE 0.5 MG/2 ML NEBU INH SCH (19:22)
[2019-12-02] MEDS: ACETYLCYSTEINE 10% (100 MG/ML) 100 MG/ML VIAL INH SCH (19:23)
--- NOTE | 2019-12-02 19:38 | NUR ---
PATIENT C/O ACHING CHEST PAIN 04/29. MEDICATED ORDERED. CALL LIGHT WITHIN REACH. WILL CONTINUE TO MONITOR.
[2019-12-02 20:00] VITALS: BP 142/73
--- NOTE | 2019-12-02 20:00 | NUR ---
PATIENT VERBALIZED RELIEF FROM ANXIETY AT THIS TIME. CURRENTLY WATCHING TV IN BED. CALL LIGHT WITHIN REACH. WILL CONTINUE TO MONITOR.
--- NOTE | 2019-12-02 20:38 | NUR ---
REASSESSED PAIN LEVEL AT 3/10, TOLERABLE PAIN LEVEL AT THIS TIME. NO S/SX ACUTE DISTRESS. CALL LIGHT WITHIN REACH. WILL CONTINUE TO MONITOR.
[2019-12-02] MEDS: INSULIN LANTUS 100 UNITS/ML 10 ML VIAL SUBQ SCH (20:40)
[2019-12-02] MEDS: guaiFENesin 600 MG TABER PO SCH (20:44)
[2019-12-02] MEDS: CLINDAMYCIN 600 MG in DEXTROSE 5% 50 ML IV SCH (20:45)
--- NOTE | 2019-12-02 20:46 | NUR ---
PATIENT'S BLOOD GLUCOSE WAS 448 MG/DL. HUMALOG COVERAGE AND LANTUS ADMINISTERED ORDERED. DR TOLLIVER AWARE. WILL REASSESS BLOOD GLUCOSE PER MD.
[2019-12-02] MEDS ORDERED: ZOLPIDEM 5 MG TAB PO PRN (21:00)
[2019-12-02] MEDS: MONTELUKAST SODIUM 10 MG TAB PO SCH (21:34)
--- NOTE | 2019-12-02 21:40 | NUR ---
REASSESSED BLOOD GLUCOSE AT 366 MG/DL. PATIENT VERBALIZES NO DISTRESS AT THIS TIME. CALL LIGHT WITHIN REACH. WILL CONTINUE TO MONITOR.
--- NOTE | 2019-12-02 23:15 | NUR ---
MADE ROUNDS. PATIENT IS ASLEEP AT THIS TIME. NO C/O PAIN. NO S/SX ACUTE DISTRESS. CALL LIGHT WITHIN REACH. WILL CONTINUE TO MONITOR.
[2019-12-03] VITALS: BP 123/72
--- NOTE | 2019-12-03 00:10 | NUR ---
RADIOLOGY PICKED UP PATIENT FOR PROCEDURE VIA WHEELCHAIR. WILL AWAIT PATIENT'S RETURN.
--- NOTE | 2019-12-03 00:22 | NUR ---
PATIENT RETURNED VIA WHEELCHAIR. CURRENTLY WATCHING TV IN BED WITH NO C/O PAIN. NO S/SX ACUTE DISTRESS. CALL LIGHT WITHIN REACH. WILL CONTINUE TO MONITOR.
[2019-12-03] MEDS: ALBUTEROL SULFATE/IPRATROPIU 3 ML SOL IH SCH ×4 (01:22→19:40)
[2019-12-03] MEDS: ACETYLCYSTEINE 10% (100 MG/ML) 100 MG/ML VIAL INH SCH ×3 (01:23→19:41)
--- NOTE | 2019-12-03 02:36 | NUR ---
MADE ROUNDS. PATIENT IS ASLEEP AND IN STABLE CONDITION. NO C/O PAIN. NO S/SX ACUTE DISTRESS. CALL LIGHT WITHIN REACH. WILL CONTINUE TO MONITOR.
--- NOTE | 2019-12-03 03:02 | NUR ---
MADE ROUNDS. PATIENT IS ASLEEP AND IN STABLE CONDITION. NO C/O PAIN. NO S/SX ACUTE DISTRESS. CALL LIGHT WITHIN REACH. WILL CONTINUE TO MONITOR.
[2019-12-03] MEDS: MORPHINE SULFATE 2 MG/ML SYR IVP PRN ×5 (03:51→20:47)
--- NOTE | 2019-12-03 03:51 | NUR ---
PATIENT C/O ACHING PAIN 04/29. MEDICATED ORDERED. CALL LIGHT WITHIN REACH. WILL CONTINUE TO MONITOR.
[2019-12-03 04:00] VITALS: BP 131/51
[2019-12-03] MEDS: CLINDAMYCIN 600 MG in DEXTROSE 5% 50 ML IV SCH (04:24)
--- NOTE | 2019-12-03 04:51 | NUR ---
REASSESSED PAIN LEVEL, PATIENT IS ASLEEP. NO S/SX ACUTE DISTRESS. CALL LIGHT WITHIN REACH. WILL CONTINUE TO MONITOR.
[2019-12-03] MEDS ORDERED: methylPREDNISolone SS 125 MG/2 ML VIAL IVP SCH (05:00)
[2019-12-03] MEDS: methylPREDNISolone SS 125 MG/2 ML VIAL IVP SCH ×3 (05:23→20:34)
[2019-12-03] MEDS: BUDESONIDE 0.5 MG/2 ML NEBU INH SCH ×2 (06:57→19:40)
[2019-12-03 07:07] LABS: BASOPHILS % (AUTO) 0.2 % (0.0-2.0); EOSINOPHILS % (AUTO) 0.1 % (0.0-4.0); HEMATOCRIT 41.3 % (36-48); HEMOGLOBIN 13.4 g/dL (12.0-16.0); LYMPHOCYTES # (AUTO) 1.9 K/uL (2.5-16.5); MEAN CORPUSCULAR HEMOGLOBIN 30 pg (27-31); MEAN CORPUSCULAR HGB CONC 33 g/dL (33-37); MEAN CORPUSCULAR VOLUME 92.1 fL (80-94); MONOCYTES # (AUTO) 0.4 K/uL (0.8-1.0); MONOCYTES % (AUTO) 4.3 % (1.7-9.3); NEUTROPHILS # (AUTO) 7.5 K/uL (1.8-7.7); NEUTROPHILS % (AUTO) 76.4 % (42.2-75.2); PLATELET COUNT (AUTO) 343 K/uL (140-450); RED BLOOD CELL COUNT(AUTO) 4.48 MIL/uL (4.20-5.40); RED CELL DISTRIBUTION WIDTH 15.5 % (11.6-13.7); WHITE BLOOD COUNT (AUTO) 9.9 K/uL (4.8-10.8)
[2019-12-03 07:22] LABS: ANION GAP 15.2 (8-16); CARBON DIOXIDE 26.8 mmol/L (21-32); CREATININE 0.8 mg/dL (0.6-1.3)
--- NOTE | 2019-12-03 07:28 | NUR ---
RECEIVED PT FROM SLAT BASKET MAKER HELPER MACHINE NURSEDARA, PT IS AWAKE AND SEATED ON THE BED WITH SIDE RAILS UP AND CALL LIGHT WITHIN REACH, PERIPHERAL LINE ON THE LEFT AC G. 20 WITH NS INFUSING AT 50ML/HR, PT IS ON ROOM AIR BUT NIGHT RN SAID THAT PT INTERMITTENTLY REMOVES O2 VIA NC, PT DENIES PAIN, NO SIGN OF DISTRESS NOTED AND WILL MONITOR PT.
[2019-12-03 08:00] VITALS: BP 129/84
[2019-12-03] MEDS: BLOOD GLUCOSE MONITORING 1 DEV DEV FS SCH ×4 (08:20→20:17)
--- NOTE | 2019-12-03 08:20 | NUR ---
PATIENT HAS BEEN SCREENED AND CATEGORIZED MODERATE NUTRITION RISK. PATIENT WILL BE SEEN WITHIN 3-5 DAYS OF ADMISSION. 12/05/19 12/07/[address]
[2019-12-03] MEDS: LACTOBACILLUS RHAMNOSUS GG 1 EACH CAP PO SCH (08:24)
[2019-12-03] MEDS: ASPIRIN 81 MG TAB.CHEW PO SCH (08:26)
[2019-12-03] MEDS: guaiFENesin 600 MG TABER PO SCH ×2 (08:26→20:34)
[2019-12-03] MEDS: metFORMIN 500 MG TAB PO SCH ×2 (08:26→16:54)
[2019-12-03] MEDS: SERTRALINE 50 MG TAB PO SCH (08:27)
[2019-12-03] MEDS: THEOPHYLLINE 200 MG TABER PO SCH (08:28)
[2019-12-03] MEDS: NACL 0.9% 1,000 ML IV SCH (08:41)
--- NOTE | 2019-12-03 08:42 | NUR ---
MORNING MEDICATIONS GIVEN. PT. STATES THAT SHE'S IN PAIN WITH A SCALE OF 8/10. PRN MORPHINE 1MG GIVEN. PT. TOLERATED WELL. CALL LIGHT WITHIN REACH. WILL CONTINUE TO ASSESS PAIN. WILL CONTINUE TO MONITOR.
[2019-12-03] MEDS ORDERED: THEOPHYLLINE 300 MG TABER PO SCH (09:00)
--- NOTE | 2019-12-03 09:18 | NUR ---
DR. JONES CAME TO PT'S ROOM AND ASSESSED AND SPOKE TO PT IN [place], PT RESPONDING APPROPRIATELY. Addendum: 12/03/19 at 1002 by Heide Post RN WRONG NOTE ENTRY FOR THE PT ABOVE
--- NOTE | 2019-12-03 09:21 | NUR ---
CHEST XRAY IS BEING DONE NOW. PT. TOLERATED WELL. WILL CONTINUE TO MONITOR. Addendum: 12/03/19 at 1003 by Heide Post RN WRONG NOTE ENTRY FOR THE PT ABOVE.
--- NOTE | 2019-12-03 09:25 | NUR ---
PT WASEEN AMBULATING TO THE HALLWAY NOW, NO SIGN OF DISTRESS NOTED.
--- NOTE | 2019-12-03 11:08 | NUR ---
PT WAS TRANSFERRED TO MED-SURG NOW.
[2019-12-03] MEDS: INSULIN LISPRO SLIDING SCALE 100 UNITS/ML VIAL SUBQ PRN ×3 (11:40→20:21)
--- NOTE | 2019-12-03 11:40 | NUR ---
PT WAS GIVEN 8 UNITS INSULIN ON THE LEFT UA FOR BLOOD GLUCOSE OF 331. WILL CONTINUE TO MONITOR.
--- NOTE | 2019-12-03 12:08 | NUR ---
PT WAS GIVEN SOLU-MEDROL IV PUSH, MEDICATION TEACHING GIVEN TO PT, TOLERATED IT AND WILL MONITOR PT
[2019-12-03 12:41] VITALS: BP 137/85
--- NOTE | 2019-12-03 13:55 | NUR ---
[facility] Patient: Davida Rock Elizabeth : 1955 Age/Sex: 64/F Unit#: [id number] Room/Bed: 119/A User: Maliha VEGA Date: 12/03/19 13:35 Type: CM: Discharge Planning High Risk DC Screen Yes Name: Gogo Rock Norton Relationship: daughter Pre-Admission Living Arrangements: Lives with Other Other: Gogo Rock Prior ADL Needs Assistance Current Home Health Name/Tel: [facility] Current DME/02 Name/Tel: [facility]ww, home O2 (concentrator, portable) Healthcare Decision Maker: Patient Advance Directive No Information Taught: Advance Directive Person Taught: Patient Teaching Tools: Computer Generated Print Verbal Factors Affecting Learning: None Participation Level: Active Evaluation: Gestures Understanding Verbalizes Understanding Educator: BHASKAR Luke Discipline: Case Mgt/Social Svcs Tentative Discharge Plan Summary: Patient is a 64 year old female admitted COPD exacerbation. I met with patient at bedside. Patient alert and oriented x4. Patient lives at home with her daughter Gogo Rock and plans to return home upon discharge. Patient's pcp is Aric Pride and she does not have any difficulty filling her prescriptions at pharmacy. She receives home health services from [facility] every 2 weeks. Gogo is patient's [facility] caregiver. Patient does not have any questions/concerns at this time. Deli Department Manager and/or Geomagnetist will follow up as needed. Signature: BHASKAR Luke Date: Dec 03, 2019
[2019-12-03 16:00] VITALS: BP 149/65
--- NOTE | 2019-12-03 16:53 | NUR ---
PT C/O PAIN RATE OF 8/10 AND WAS GIVEN PAIN MEDICATION VIA IV PUSH, WILL RE-ASSESS PAIN AND MONITOR PT.
--- NOTE | 2019-12-03 17:02 | NUR ---
PT WAS GIVEN 10 UNITS INSULIN ON THE LEFT UA FOR BLOOD GLUCOSE OF 396, WILL MONITOR PT.
[2019-12-03] MEDS: LORazepam 2 MG/ML VIAL IM/IVP PRN (18:59)
--- NOTE | 2019-12-03 18:59 | NUR ---
GIVEN ATIVAN DUE TO COMPLAINTS OF RESTLESSNESS. PT. TOLERATED WELL. WILL CONTINUE TO MONITOR.
--- NOTE | 2019-12-03 19:10 | NUR ---
ENDORSED PT. TO TAPROOM ATTENDANT NURSE. PT. IS STABLE, AWAKE AND ALERT. CALL LIGHT WITHIN REACH, NO SIGNS OF DISTRESS NOTED.
--- NOTE | 2019-12-03 19:11 | NUR ---
RECEIVED PT FROM AM SHIFT NURSEMARIA DE JESUS PT IS AWAKE AND SEATED ON THE BED WITH SIDE RAILS UP AND CALL LIGHT WITHIN REACH, PERIPHERAL LINE ON THE LEFT AC G. 20 WITH NS INFUSING AT 50ML/HR,PT DENIES PAIN, NO SIGN OF DISTRESS NOTED AND WILL MONITOR PT.
[2019-12-03] MEDS: INSULIN LANTUS 100 UNITS/ML 10 ML VIAL SUBQ SCH (20:23)
[2019-12-03] MEDS: MONTELUKAST SODIUM 10 MG TAB PO SCH (20:34)
--- NOTE | 2019-12-03 21:00 | NUR ---
MEDICATED GIVEN EDUCATION, DISCUSSED THE SIDE EFFECTS. PT VERBALIZED UNDERSTANDING
--- NOTE | 2019-12-03 21:00 | NUR ---
SOLUMEDROL .64 ML GIVEN; DR. TOLLIVER AWARE THERE WERE 2 ORDERS OF SOLU-MEDROL AND METHYLPREDNISONE FOR 2100. W/ ORDERS TO HOLD THE 1 ML OF METHYLPREDNISONE SS AND TO GIVE THE .64ML OF SOLU-MEDROL (125/2ML)
--- NOTE | 2019-12-03 23:00 | NUR ---
PT STILL TRYING TO SLEEP, NO COMPLAINTS AT THIS TIME. PATIENT TAKING A LOT OF WATER. [facility], PT ACKNOWLEDGED BUT CONTINUED TO DRINK SODA, PER PT. IT HAS ZERO SUGAR.EXPLAINED TO HER THE RISKS AND BENEFITS. PT VERBALIZED UNDERSTANDING
[2019-12-04 00:37] VITALS: BP 134/69
[2019-12-04] MEDS: ACETYLCYSTEINE 10% (100 MG/ML) 100 MG/ML VIAL INH SCH ×2 (00:41→06:59)
[2019-12-04] MEDS: ALBUTEROL SULFATE/IPRATROPIU 3 ML SOL IH SCH ×2 (00:41→06:59)
--- NOTE | 2019-12-04 02:00 | NUR ---
PT SLEEPING NO COMPLAINTS AT THIS TIME, NO SOB, PT IN STABLE CONDITION
[2019-12-04] MEDS: MORPHINE SULFATE 2 MG/ML SYR IVP PRN ×2 (03:58→08:02)
[2019-12-04] MEDS ORDERED: methylPREDNISolone SS 40 MG/ML VIAL IVP SCH (05:00)
[2019-12-04] MEDS: BLOOD GLUCOSE MONITORING 1 DEV DEV FS SCH (05:34)
[2019-12-04] MEDS: INSULIN LISPRO SLIDING SCALE 100 UNITS/ML VIAL SUBQ PRN (05:36)
--- NOTE | 2019-12-04 05:58 | NUR ---
PT REFUSED TO BE PLACED WITH IVF AND WANT'S IVF NOT TO BE INFUSED TEMPORARILY, SHE REQUESTS TO WALK AROUND. PT WALKING, STANDBY ASSIST PT W/ STEADY GAIT.
[2019-12-04] MEDS: NACL 0.9% 1,000 ML IV SCH (06:05)
--- NOTE | 2019-12-04 06:12 | NUR ---
PT WANTS TO GO HOME, SAID SHE WILL TALK TO WILL ENDORSE TO NEXT SHIFT. PT INS STABLE CONDITION AT THIS TIME. STILL W/ SLIGHT WHEEZING NOTED.
[2019-12-04] MEDS: BUDESONIDE 0.5 MG/2 ML NEBU INH SCH (07:00)
[2019-12-04 07:17] LABS: BASOPHILS % (AUTO) 0.1 % (0.0-2.0); HEMATOCRIT 38.2 % (36-48); HEMOGLOBIN 12.5 g/dL (12.0-16.0); LYMPHOCYTES # (AUTO) 1.7 K/uL (2.5-16.5); LYMPHOCYTES % (AUTO) 16.3 % (20.5-51.1); MEAN CORPUSCULAR HEMOGLOBIN 30 pg (27-31); MEAN CORPUSCULAR HGB CONC 33 g/dL (33-37); MONOCYTES # (AUTO) 0.5 K/uL (0.8-1.0); MONOCYTES % (AUTO) 4.3 % (1.7-9.3); NEUTROPHILS # (AUTO) 8.3 K/uL (1.8-7.7); NEUTROPHILS % (AUTO) 79.3 % (42.2-75.2); PLATELET COUNT (AUTO) 311 K/uL (140-450); RED BLOOD CELL COUNT(AUTO) 4.15 MIL/uL (4.20-5.40); RED CELL DISTRIBUTION WIDTH 15.6 % (11.6-13.7); WHITE BLOOD COUNT (AUTO) 10.4 K/uL (4.8-10.8)
--- NOTE | 2019-12-04 07:20 | NUR ---
RECEIVED BEDSIDE REPORT FROM RESPIRATORY TECHNICIAN NURSE GRACIA. PT IS AWAKE AND ALERT SITTING UP IN BED, GETTING A BREATHING TX AT THIS TIME. PT IS ON ROOM AIR. SKIN IS INTACT. IV SITE L AC 20 G, CURRENTLY NOT INFUSING ANY FLUIDS. PT IS AMBULATORY AND ABLE TO MAKE NEEDS KNOWN. CALL LIGHT IS WITHIN REACH. PT SAYS SHE WANTS TO GO HOME TODAY. MD IS AWARE.
[2019-12-04 07:28] LABS: ANION GAP 14.9 (8-16); CARBON DIOXIDE 27.3 mmol/L (21-32); POTASSIUM 4.2 mmol/L (3.5-5.1)
[2019-12-04 07:35] LABS: MAGNESIUM 1.6 mg/dL (1.8-2.4); PHOSPHORUS 3.8 mg/dL (2.5-4.9)
[2019-12-04 07:39] LABS: CREATININE 0.8 mg/dL (0.6-1.3)
[2019-12-04] MEDS: THEOPHYLLINE 200 MG TABER PO SCH (07:58)
[2019-12-04] MEDS: ASPIRIN 81 MG TAB.CHEW PO SCH (07:59)
[2019-12-04] MEDS: LACTOBACILLUS RHAMNOSUS GG 1 EACH CAP PO SCH (07:59)
[2019-12-04] MEDS: metFORMIN 500 MG TAB PO SCH (07:59)
[2019-12-04 08:00] VITALS: BP 115/64
[2019-12-04] MEDS: SERTRALINE 50 MG TAB PO SCH (08:00)
[2019-12-04] MEDS: guaiFENesin 600 MG TABER PO SCH (08:00)
--- NOTE | 2019-12-04 08:10 | NUR ---
AM MEDS ADMINISTERED, PT TOLERATED WELL.
[2019-12-04] MEDS ORDERED: predniSONE 20 MG TAB PO SCH (09:00)
[2019-12-04] MEDS ORDERED: [UNRECOGNIZED DRUG - CODE] PO (09:26)
--- NOTE | 2019-12-04 09:55 | NUR ---
PT HAS DC'D. PT WAS GIVEN DC INSTRUCTIONS AND VERBALIZED UNDERSTANDING OF DC TEACHING. IV SITE AND WRIST BANDS REMOVED. PT IS UP TO DATE ON HER FLU AND PNA VACCINES. PT LEFT IN STABLE CONDITION WITH ALL HER BELONGINGS.
--- NOTE | 2019-12-04 14:21 | NUR ---
Coatings Inspector Note: Late entry for 12/03/19: Patient politely stated she never wants to complete an Advance Directive.
[2019-12-05] MEDS ORDERED: methylPREDNISolone SS 40 MG/ML VIAL IVP SCH (09:00)
== END 2019-12-04 09:55 | disposition home or self-care (01) | DRG 140 ==
LOC: MED 11:13 → MTU 14:27
PROVIDERS: ADMIT General Practice; ATTEND General Practice
DX: J43.2 Centrilobular emphysema (principal); D68.59 Other primary thrombophilia; E11.40 Type 2 diabetes mellitus with diabetic neuropathy, unspecified; E11.51 Type 2 diabetes mellitus with diabetic peripheral angiopathy without gangrene; E11.65 Type 2 diabetes mellitus with hyperglycemia; I48.91 Unspecified atrial fibrillation; Z99.81 Dependence on supplemental oxygen; Z88.0 Allergy status to penicillin; Z88.8 Allergy status to other drugs, medicaments and biological substances; Z79.899 Other long term (current) drug therapy; E11.9 Type 2 diabetes mellitus without complications; K21.9 Gastro-esophageal reflux disease without esophagitis; Z86.711 Personal history of pulmonary embolism; Z83.3 Family history of diabetes mellitus; Z82.49 Family history of ischemic heart disease and other diseases of the circulatory system; F17.210 Nicotine dependence, cigarettes, uncomplicated; G47.00 Insomnia, unspecified; F41.9 Anxiety disorder, unspecified; F32.9 Major depressive disorder, single episode, unspecified; I10 Essential (primary) hypertension; T38.0X5A Adverse effect of glucocorticoids and synthetic analogues, initial encounter; K59.00 Constipation, unspecified
CPT/HCPCS: 36415; 71045; 71250; 74018; 80048; 80198; 80305; 81001; 82948; 83036; 83690; 83735; 84100; 84443; 85025; 85610; 85730; 87040; 87081; 87804; 93005; 94640; 94644; 94667; 96374; 96375; 99285; J0696; J1644; J1815; J1885; J1956; J2060; J2270; J2920; J2930; J3370; J3490; J7030; J7060; J7512; J7613; J7620; J7626; J7644; Q0092

== ENCOUNTER 2019-12-13 15:20 | Inpatient (IN) | payer OTHER ==
[~2019-12-13] VITALS: Ht 157.5 cm; Wt 68.0 kg
[~2019-12-13 15:20] MED LIST changes: -ACET-787 PO; -LEVO750T2 PO; -PRED10TA6 PO; -TIZA4CAP PO; -ZOLP5TAB1 PO; +[UNRECOGNIZED DRUG - CODE] PO; -[UNRECOGNIZED DRUG - CODE] PO
[2019-12-13 15:25] VITALS: BP 156/66
--- NOTE | 2019-12-13 15:26 | NUR ---
PATIENT AMBULATED TO BED 2 AT THIS TIME.
[2019-12-13] MEDS ORDERED: ALBUTEROL SULFATE/IPRATROPIU 3 ML SOL IH ONE (15:35)
--- NOTE | 2019-12-13 15:36 | NUR ---
ADMINISTERED HHN THERAPY AND RESPIRATORY DRUGS ORDERED
--- NOTE | 2019-12-13 15:40 | NUR ---
64 yo female presents to ER c/o difficulty breathing since Saturday. Respirations even and labored, symmetrical chest expansion. 98% SpO2 on RA. Ronchi, wheezing, diminshed air exchange. Pain level 10/10 to chest and back from cough. Cough is moist. PT complains of chills, diaphoresis, from work of breathing. RT at bedside. Dr. Carrasco at bedside. Allergies: Penicillin, Unasyn Med Hx: COPD, asthma, DM, Blood clots
--- NOTE | 2019-12-13 15:46 | NUR ---
DR. ALEE ARMSTRONG AT BEDSIDE PATIENT AGREED TO THE USE OF BIPAP TO MASK
--- NOTE | 2019-12-13 15:51 | NUR ---
Rt is placing PT on BiPap machine
[2019-12-13 15:54] VITALS: BP 129/82
[2019-12-13] MEDS ORDERED: fentaNYL 0.05 MG/ML VIAL IVP ONE (15:55)
[2019-12-13] MEDS ORDERED: methylPREDNISolone SS 125 MG/2 ML VIAL IVP ONE (15:55)
[2019-12-13] MEDS ORDERED: MAG SULF 2000 MG/WATER PREMIX 50 ML IV ONE (15:55)
--- NOTE | 2019-12-13 16:03 | NUR ---
PATIENT REFUSED ABG KALYANI/RN NOTIFIED
--- NOTE | 2019-12-13 16:08 | NUR ---
PT refused ABG, Dr. Carrasco made aware.
[2019-12-13 16:10] LABS: BASOPHILS # (AUTO) 0.1 K/uL (0.00-0.22); EOSINOPHILS % (AUTO) 0.1 % (0.0-4.0); HEMATOCRIT 37.8 % (36-48); HEMOGLOBIN 12.6 g/dL (12.0-16.0); LYMPHOCYTES # (AUTO) 1.1 K/uL (2.5-16.5); LYMPHOCYTES % (AUTO) 10.7 % (20.5-51.1); MEAN CORPUSCULAR HEMOGLOBIN 30 pg (27-31); MEAN CORPUSCULAR HGB CONC 33 g/dL (33-37); MEAN CORPUSCULAR VOLUME 88.8 fL (80-94); MONOCYTES # (AUTO) 0.5 K/uL (0.8-1.0); MONOCYTES % (AUTO) 5.4 % (1.7-9.3); NEUTROPHILS # (AUTO) 8.2 K/uL (1.8-7.7); NEUTROPHILS % (AUTO) 82.8 % (42.2-75.2); PLATELET COUNT (AUTO) 217 K/uL (140-450); RED BLOOD CELL COUNT(AUTO) 4.25 MIL/uL (4.20-5.40); RED CELL DISTRIBUTION WIDTH 15.3 % (11.6-13.7); WHITE BLOOD COUNT (AUTO) 9.9 K/uL (4.8-10.8)
[2019-12-13 16:27] LABS: ANION GAP 12.7 (8-16); CARBON DIOXIDE 27.1 mmol/L (21-32); CREATININE 0.8 mg/dL (0.6-1.3); POTASSIUM 3.8 mmol/L (3.5-5.1); TOTAL BILIRUBIN 0.1 mg/dL (0.0-1.0)
[2019-12-13] MEDS ORDERED: MORPHINE SULFATE 4 MG/ML SYR IVP ONE (17:00)
--- NOTE | 2019-12-13 17:03 | NUR ---
PATIENT REFUSED TO WEAR BIPAP TO MASK PLACED ON SUPPLEMENTAL OXYGEN AT 2 LPM VIA NC ACEPTED ABG PROCEDURE THEN REFUSED AFTER PUNCTURE AND NEEDLE REDIRECT X 2 Addendum: 12/13/19 at 1714 by MCACPA ACEPTED = ACCEPTED
[2019-12-13] MEDS ORDERED: AZITHROMYCIN 500 MG in DEXTROSE 5% 250 ML IV ONE (17:05)
--- NOTE | 2019-12-13 17:07 | NUR ---
Pt refused bipap machine. Pt okay to do ABG blood work now. Dr. Carrasco made aware. Pt on 2L of O2 NC at 94%.
[2019-12-13] MEDS ORDERED: cefTRIAXone 1,000 MG VIAL ONE (17:15)
[2019-12-13] MEDS: NACL 0.9% 1,000 ML IV SCH (17:28)
[2019-12-13] MEDS ORDERED: DOCUSATE SODIUM 100 MG GELCAP PO PRN (17:30)
[2019-12-13] MEDS ORDERED: ACETAMINOPHEN 325 MG TAB PO PRN (17:30)
[2019-12-13] MEDS ORDERED: DEXTROSE 50% 50 ML SYR IVP PRN (17:30)
[2019-12-13] MEDS ORDERED: ONDANSETRON 4 MG/2 ML VIAL IM/IVP PRN (17:30)
--- NOTE | 2019-12-13 17:45 | NUR ---
Pt states pain level decreased to level 6/10.
--- NOTE | 2019-12-13 18:20 | NUR ---
PATIENT ARRIVED FROM ER VIA WHEELCHAIR. PATIENT ABLE TO AMBULATE TO [facility] BED WITH STEADY GAIT. NO DISTRESS NOTED. DENIES ANY PAIN. RESPIRATIONS EVEN, UNLABORED, ON O2 2L/MIN VIA NC. LUNGS RHONCHI THROUGHOUT ALL LOBES, WILL NOTIFY RT FOR BREATHING TX. IV SITE INTACT, PATENT, AND ON SALINE LOCK AT THIS TIME. SKIN INTACT. ORIENTED PATIENT TO ROOM AND CALL LIGHT. SAFETY MEASURES IN PLACE, CALL LIGHT WITHIN REACH. WILL CONTINUE TO MONITOR.
--- NOTE | 2019-12-13 18:25 | NUR ---
Patient will be admitted to care of Dr. Nicolas. Admited to Med/Surge. Will go to room 120A. Belongings list completed. Report to ADELE Nazario.
--- NOTE | 2019-12-13 18:30 | NUR ---
Transfer of care and report given to ADELE Nazario
[2019-12-13] MEDS ORDERED: LORazepam 1 MG TAB PO PRN (18:45)
[2019-12-13] MEDS: THEOPHYLLINE 200 MG TABER PO SCH (19:00)
[2019-12-13] MEDS ORDERED: ALBUTEROL SULFATE/IPRATROPIU 3 ML SOL IH SCH (19:00)
[2019-12-13] MEDS: INSULIN LANTUS 100 UNITS/ML 10 ML VIAL SUBQ SCH ×2 (19:10→21:14)
--- NOTE | 2019-12-13 19:10 | NUR ---
GAVE REPORT WINDMILL MECHANIC NURSE FOR CONTINUITY OF CARE. PATIENT IN STABLE CONDITION
--- NOTE | 2019-12-13 19:30 | NUR ---
RECEIVED PT FROM GUS ANGULO PT IS AAOX4 AMBULATORY IV ON RT AC INFUSING WELL PT ON 2 LTS VIA NC PT REFUSED BIPAP AT TIME TIME RESP THERAPY IS HERE NOT DISTRESS NOTED AT THIS TIME, ON TELEMETRY SR INITIAL ASSESSMENT DONE
[2019-12-13 19:50] LABS: MAGNESIUM 1.4 mg/dL (1.8-2.4)
[2019-12-13 19:59] LABS: PHOSPHORUS 3.3 mg/dL (2.5-4.9)
[2019-12-13 20:00] VITALS: BP 119/60
[2019-12-13 20:00] LABS: PROTHROMBIN TIME 9.1 secs (10.8-13.4)
--- NOTE | 2019-12-13 20:05 | NUR ---
RECEIVED PATIENT ON 2L NASAL CANNULA, PULSE OX SAT 94%. SCHEDULED BREATHING TREATMENT ADMINISTERED. TOLERATED TX WELL WITHOUT ADVERSE SIDE EFFECTS. PT MADE AWARE OF ORDERED MEDICATION FREQUENCY AND INSTRUCTED TO CALL NEEDED FOR SOB. WILL CONTINUE TO MONITOR.
[2019-12-13 20:17] LABS: THYROID STIMULATING HORMONE 2.57 uIU/mL (0.34-3.74)
[2019-12-13] MEDS ORDERED: AZITHROMYCIN 500 MG INJ VIAL IV ONE (20:43)
[2019-12-13] MEDS: methylPREDNISolone SS 125 MG/2 ML VIAL IVP SCH (20:53)
[2019-12-13] MEDS: HYDROcodone/APAP 5/325 MG 1 TAB TAB PO PRN (20:57)
[2019-12-13] MEDS: MONTELUKAST SODIUM 10 MG TAB PO SCH (20:58)
[2019-12-13] MEDS: BLOOD GLUCOSE MONITORING 1 DEV DEV FS SCH (21:02)
[2019-12-13] MEDS: ALBUTEROL SULFATE/IPRATROPIU 3 ML SOL IH SCH ×2 (21:15→23:26)
[2019-12-13] MEDS: INSULIN LISPRO SLIDING SCALE 100 UNITS/ML VIAL SUBQ PRN (21:16)
--- NOTE | 2019-12-13 21:17 | NUR ---
ABG ATTEMPTED. PATIENT REFUSED TO COMPLETE ABG DRAW. INCENTIVE SPIROMETRY EDUCATION AND DEMONSTRATION ATTEMPTED; PATIENT REFUSED. BIPAP PLACEMENT ATTEMPTED; PATIENT REFUSED. INSTRUCTED PATIENT ON OBTAINING SPUTUM SPECIMEN; PATIENT STATES SHE HAS NO PHLEGM AT THIS TIME. MD SANTILLAN MADE AWARE OF ALL ATTEMPTED INTERVENTIONS AND PATIENTS REFUSAL. WILL CONTINUE TO MONITOR.
[2019-12-13] MEDS: metFORMIN 500 MG TAB PO SCH (21:25)
--- NOTE | 2019-12-13 22:00 | NUR ---
PT REMAIN STBLE NOT DISTRESS NOTED ON TELMETRY SR
--- NOTE | 2019-12-13 23:33 | NUR ---
SCHEDULED BREATHING TREATMENT ADMINISTERED. TOLERATED TX WELL WITHOUT ADVERSE SIDE EFFECTS. PATIENT REFUSING TO WEAR BIPAP AT THIS TIME. NO ACUTE RESPIRATORY DISTRESS NOTED AT THIS TIME. WILL CONTINUE TO MONITOR.
--- NOTE | 2019-12-14 | NUR ---
PAIN MEDIC GIVEN ORDER AND WEWILL MONITOR, PT ON TELMETRY SR
[2019-12-14] MEDS: MORPHINE SULFATE 2 MG/ML SYR IVP PRN ×5 (00:06→17:45)
[2019-12-14 04:00] VITALS: BP 105/47
--- NOTE | 2019-12-14 04:00 | NUR ---
SPONGE BATH GIVEN LINEN CHANGED PT IS ASSISTED TO THE RESTROOM NOT DISTRESS NOTED
[2019-12-14] MEDS: ALBUTEROL SULFATE/IPRATROPIU 3 ML SOL IH PRN (05:07)
--- NOTE | 2019-12-14 05:10 | NUR ---
PT C/O SOB. PRN BREATHING TX ADMINISTERED. TOLERATED TX WELL WITHOUT ADVERSE SIDE EFFECTS. WILL CONTINUE TO MONITOR.
[2019-12-14] MEDS: methylPREDNISolone SS 125 MG/2 ML VIAL IVP SCH ×3 (05:12→20:19)
[2019-12-14] MEDS: BLOOD GLUCOSE MONITORING 1 DEV DEV FS SCH ×4 (05:37→20:12)
[2019-12-14] MEDS: INSULIN LISPRO SLIDING SCALE 100 UNITS/ML VIAL SUBQ PRN ×3 (06:15→20:22)
[2019-12-14 06:29] LABS: ANION GAP 11.9 (8-16); CARBON DIOXIDE 26.7 mmol/L (21-32); CREATININE 0.8 mg/dL (0.6-1.3); POTASSIUM 4.6 mmol/L (3.5-5.1)
[2019-12-14 06:31] LABS: PHOSPHORUS 2.9 mg/dL (2.5-4.9)
--- NOTE | 2019-12-14 06:34 | NUR ---
;AFTER LPAIN MEDIC GIVEN PT REMAIN STABLE NOT PAIN AND BLOOD SUGAR TEST WAS 279 COVERAGE WITH 6 UNITS SUBQ HUMAL;OG FOLLOW PROTOCOL
--- NOTE | 2019-12-14 06:35 | NUR ---
;PT YANET ENDODRSED TO DAY SHIFT NURSE FOR CONTINUE OF CARE
--- NOTE | 2019-12-14 07:00 | NUR ---
RECEIVED REPORT FROM NIGHT NURSE. PATIENT IS AWAKE, ALERT, ORIENTED X4. INTRODUCED SELF. PATIENT ON O2 @ 2L VIA NC. IV INTACT AND PATENT TO LEFT AC. BED IN LOW POSITION. SAFETY MEASURES IN PLACE. Addendum: 12/14/19 at 1801 by Clifton Fleming RN CORRECTION TO NOTE ABOVE. IV INTACT AND PATENT TO RIGHT AC.
[2019-12-14] MEDS: ALBUTEROL SULFATE/IPRATROPIU 3 ML SOL IH SCH ×3 (07:14→18:58)
[2019-12-14] MEDS: BUDESONIDE 0.5 MG/2 ML NEBU INH SCH ×2 (07:14→18:58)
--- NOTE | 2019-12-14 07:14 | NUR ---
BIPAP TO MASK AT BEDSIDE
[2019-12-14 07:16] LABS: BASOPHILS % (AUTO) 0.3 % (0.0-2.0); HEMATOCRIT 32.1 % (36-48); HEMOGLOBIN 10.8 g/dL (12.0-16.0); LYMPHOCYTES # (AUTO) 0.4 K/uL (2.5-16.5); LYMPHOCYTES % (AUTO) 4.6 % (20.5-51.1); MEAN CORPUSCULAR HEMOGLOBIN 30 pg (27-31); MEAN CORPUSCULAR HGB CONC 34 g/dL (33-37); MEAN CORPUSCULAR VOLUME 89.2 fL (80-94); MONOCYTES # (AUTO) 0.3 K/uL (0.8-1.0); MONOCYTES % (AUTO) 3.5 % (1.7-9.3); NEUTROPHILS # (AUTO) 7.2 K/uL (1.8-7.7); NEUTROPHILS % (AUTO) 91.6 % (42.2-75.2); PLATELET COUNT (AUTO) 204 K/uL (140-450); RED BLOOD CELL COUNT(AUTO) 3.59 MIL/uL (4.20-5.40); RED CELL DISTRIBUTION WIDTH 15.2 % (11.6-13.7); WHITE BLOOD COUNT (AUTO) 7.9 K/uL (4.8-10.8)
[2019-12-14 08:00] VITALS: BP 107/65
--- NOTE | 2019-12-14 08:40 | NUR ---
PATIENT HAS BEEN SCREENED AND CATEGORIZED MODERATE NUTRITION RISK. PATIENT WILL BE SEEN WITHIN 3-5 DAYS OF ADMISSION. 12/16/19 12/18/[address]
[2019-12-14] MEDS ORDERED: PANTOPRAZOLE 40 MG INJ VIAL IVP SCH (09:00)
--- NOTE | 2019-12-14 09:00 | NUR ---
PATIENT ALERT AND ORIENTED X4. NO S/S OF DISTRESS NOTED. PATIENT ABLE TO AMBULATE TO THE RESTROOM INDEPENDENTLY. CALL LIGHT WITHIN REACH. O2 ON @ 2L NC.
[2019-12-14] MEDS: LACTOBACILLUS RHAMNOSUS GG 1 EACH CAP PO SCH (09:22)
[2019-12-14] MEDS: ASPIRIN 81 MG TAB.CHEW PO SCH (09:23)
[2019-12-14] MEDS: SERTRALINE 50 MG TAB PO SCH (09:23)
[2019-12-14] MEDS: AZITHROMYCIN 250 MG TAB PO SCH (09:23)
[2019-12-14] MEDS: BENZONATATE 100 MG CAPLF PO SCH ×3 (09:26→17:45)
[2019-12-14] MEDS: metFORMIN 500 MG TAB PO SCH ×2 (09:26→20:18)
[2019-12-14] MEDS: NICOTINE TRANSD SYS 21 MG/24 HR PATCH TD SCH (09:27)
[2019-12-14] MEDS: PANTOPRAZOLE 40 MG TABEC PO SCH (09:27)
[2019-12-14] MEDS: NACL 0.9% 1,000 ML IV SCH (10:08)
--- NOTE | 2019-12-14 11:00 | NUR ---
PATIENT AMBULATED TO THE HALLWAY WITH STEADY GAIT.
[2019-12-14 12:00] VITALS: BP 113/61
--- NOTE | 2019-12-14 13:00 | NUR ---
PATIENT IS ALERT AND ORIENTED X4. NO S/S OF DISTRESS NOTED. O2 ON @ 2L NC. CALL LIGHT WITHIN REACH. ABLE TO MAKE NEEDS KNOWN.
--- NOTE | 2019-12-14 13:42 | NUR ---
DC PLANN[age] YRS OLD FEMALE PATIENT WAS ADMITTED FROM HOME WITH A DX OF COPD EXACERBATION . PT HAS A HX OF COPD AND A-FIB, ASTHMA, ANXIETY ,RECURRENT THROMBOEMBOLISM AND DM. PT IS ON BIPAP, CHEST X RAY SHOWED ACUTE CARDIOPULMONARY DISEASE BLOOD,URINE AND SPUTUM CULTURE IS PENDING. ADMINISTERED SOLU MEDROL IV ,RT PROTOCOL , BILATERAL LOWER EXT. VENOUS ULTRASOUND PENDING. DC PLAN TO GO HOME WHEN STABLE CM TO FOLLOW. Addendum: 12/15/19 at 1109 by Janee Wilkinson CM DC PLANNING: SEEN BY DR HARDING ACCOUNT CONSULTANT CONTINUE ABX COVERAGE ,BREATHING TREATMENT TAPER ON PREDNISONE , WEAN OF OXYGEN TO MAINTAIN O2 AT 88% PT ON O2 2L/NC DC PLAN TO GO HOME WHEN STABLE . CM TO FOLLOW
--- NOTE | 2019-12-14 14:15 | NUR ---
RIGHT AC PERIPHERAL IV NON PATENT, PATIENT COMPLAINS OF PAIN TO IV SITE. IV REMOVED CANNULA INTACT. WILL REINSERT NEW IV.
--- NOTE | 2019-12-14 14:30 | NUR ---
PT STILL WITH NO IV ACCESS. UNABLE TO SUCCESSFULLY INSERT IV. CHARGE NURSE MADE AWARE.
--- NOTE | 2019-12-14 15:30 | NUR ---
STILL UNABLE TO SUCCESSFULLY INSERT IV AT THIS TIME. WILL TRY AGAIN.
[2019-12-14] MEDS: HYDROcodone/APAP 5/325 MG 1 TAB TAB PO PRN (15:46)
[2019-12-14 16:00] VITALS: BP 120/65
--- NOTE | 2019-12-14 17:00 | NUR ---
AFTER MULTIPLE ATTEMPTS, IV INSERTED TO LEFT HAND WITH 24G NEEDLE. IV PATENT FLUSHED WITH NS. PATIENT REMAINS STABLE. PT AAOX4. NO S/S OF DISTRESS NOTED. CALL LIGHT WITHIN REACH.
[2019-12-14] MEDS: THEOPHYLLINE 200 MG TABER PO SCH (18:20)
--- NOTE | 2019-12-14 19:07 | NUR ---
PT IN STABLE CONDITION. WILL ENDORSE TO NIGHT NURSE FOR CONTINUITY CARE.
--- NOTE | 2019-12-14 19:10 | NUR ---
RECEIVED PATIENT IN STABLE CONDITION FROM AM SHIFT NURSE FOR CONTINUITY OF CARE. PATIENT IS ABLE TO MAKE NEEDS KNOWN. CURRENTLY RECEIVING A BREATHING TREATMENT FROM RT. IV SITE TO LEFT HAND 24G PATENT/INTACT. NO C/O PAIN AT THIS TIME. NO S/SX ACUTE DISTRESS. CALL LIGHT WITHIN REACH. WILL CONTINUE TO MONITOR.
--- NOTE | 2019-12-14 19:48 | NUR ---
PATIENT C/O ANXIETY. MEDICATED ORDERED. PROVIDED LOW STIMULI ENVIRONMENT. PATIENT IS CURRENTLY LAYING IN BED WITH EYES CLOSED. ENCOURAGED DEEP BREATHING AND RELAXATION TECHNIQUES. CALL LIGHT WITHIN REACH. WILL CONTINUE TO MONITOR.
[2019-12-14 20:00] VITALS: BP 127/58
[2019-12-14] MEDS: MONTELUKAST SODIUM 10 MG TAB PO SCH (20:18)
[2019-12-14] MEDS: INSULIN LANTUS 100 UNITS/ML 10 ML VIAL SUBQ SCH (20:22)
--- NOTE | 2019-12-14 20:30 | NUR ---
PATIENT LAYING IN BED WITH EYES CLOSED. VERBALIZED NO ANXIETY AT THIS TIME. NO C/O PAIN. NO S/SX ACUTE DISTRESS. CALL LIGHT WITHIN REACH. WILL CONTINUE TO MONITOR.
--- NOTE | 2019-12-14 22:46 | NUR ---
PATIENT ASLEEP AND IN STABLE CONDITION. NO C/O PAIN. NO S/SX ACUTE DISTRESS. CALL LIGHT WITHIN REACH. WILL CONTINUE TO MONITOR.
[2019-12-15] VITALS: BP 130/61
--- NOTE | 2019-12-15 | NUR ---
MADE ROUNDS. PATIENT IS ASLEEP WITH NO C/O PAIN. NO S/SX ACUTE DISTRESS. CALL LIGHT WITHIN REACH. WILL CONTINUE TO MONITOR.
[2019-12-15] MEDS: ALBUTEROL SULFATE/IPRATROPIU 3 ML SOL IH SCH ×4 (01:25→19:41)
[2019-12-15] MEDS: MORPHINE SULFATE 2 MG/ML SYR IVP PRN ×6 (01:27→21:32)
[2019-12-15] MEDS: NACL 0.9% 1,000 ML IV SCH ×2 (02:48→05:07)
[2019-12-15 04:00] VITALS: BP 136/79
--- NOTE | 2019-12-15 04:15 | NUR ---
REPORT RECEIVED FROM TOMA ANGULO. PT IN STABLE CONDITION.
[2019-12-15] MEDS: methylPREDNISolone SS 125 MG/2 ML VIAL IVP SCH ×3 (04:52→21:18)
--- NOTE | 2019-12-15 04:53 | NUR ---
MORPHINE GIVEN FOR 8/10 PAIN. PT TOLERATED WELL. SOLUMEDROL GIVEN. PT TOLERATED WELL.
[2019-12-15] MEDS: ALBUTEROL SULFATE/IPRATROPIU 3 ML SOL IH PRN (05:32)
[2019-12-15 06:04] LABS: BASOPHILS % (AUTO) 0.1 % (0.0-2.0); EOSINOPHILS % (AUTO) 0.2 % (0.0-4.0); HEMATOCRIT 34.1 % (36-48); HEMOGLOBIN 10.9 g/dL (12.0-16.0); LYMPHOCYTES # (AUTO) 0.8 K/uL (2.5-16.5); LYMPHOCYTES % (AUTO) 6.5 % (20.5-51.1); MEAN CORPUSCULAR HEMOGLOBIN 30 pg (27-31); MEAN CORPUSCULAR HGB CONC 32 g/dL (33-37); MEAN CORPUSCULAR VOLUME 92.4 fL (80-94); MONOCYTES # (AUTO) 0.7 K/uL (0.8-1.0); MONOCYTES % (AUTO) 6.1 % (1.7-9.3); NEUTROPHILS # (AUTO) 10.5 K/uL (1.8-7.7); NEUTROPHILS % (AUTO) 87.1 % (42.2-75.2); PLATELET COUNT (AUTO) 226 K/uL (140-450); RED BLOOD CELL COUNT(AUTO) 3.69 MIL/uL (4.20-5.40); RED CELL DISTRIBUTION WIDTH 15.4 % (11.6-13.7)
[2019-12-15] MEDS: BLOOD GLUCOSE MONITORING 1 DEV DEV FS SCH ×4 (06:15→21:15)
--- NOTE | 2019-12-15 06:15 | NUR ---
BS 139. NO INSULIN COVERAGE NEEDED.
--- NOTE | 2019-12-15 06:33 | NUR ---
PT AWAKE AND ALERT WALKING AROUND. NO S/S OF DISTRESS NOTED. WILL CONTINUE TO MONITOR.
[2019-12-15 06:37] LABS: ANION GAP 12.2 (8-16); CARBON DIOXIDE 29.6 mmol/L (21-32); CREATININE 0.7 mg/dL (0.6-1.3); POTASSIUM 4.8 mmol/L (3.5-5.1)
[2019-12-15 06:43] LABS: MAGNESIUM 1.6 mg/dL (1.8-2.4); PHOSPHORUS 3.7 mg/dL (2.5-4.9)
--- NOTE | 2019-12-15 07:05 | NUR ---
RECEIVED REPORT FROM NIGHT NURSE. PATIENT IS OUT OF BED WALKING IN THE HALLWAYS. INTRODUCED SELF. PATIENT AAOX4. IV INTACT AND PATENT TO LEFT HAND WITH NS 60ML/HR. PATIENT ABLE TO MAKE NEEDS KNOWN. PLANS OF CARE DISCUSSED.
[2019-12-15] MEDS: BUDESONIDE 0.5 MG/2 ML NEBU INH SCH ×2 (07:33→19:41)
[2019-12-15 08:00] VITALS: BP 124/73
[2019-12-15] MEDS: NICOTINE TRANSD SYS 21 MG/24 HR PATCH TD SCH (09:05)
[2019-12-15] MEDS: LACTOBACILLUS RHAMNOSUS GG 1 EACH CAP PO SCH (09:05)
[2019-12-15] MEDS: metFORMIN 500 MG TAB PO SCH ×2 (09:05→21:18)
[2019-12-15] MEDS: AZITHROMYCIN 250 MG TAB PO SCH (09:06)
[2019-12-15] MEDS: PANTOPRAZOLE 40 MG TABEC PO SCH (09:06)
[2019-12-15] MEDS: ASPIRIN 81 MG TAB.CHEW PO SCH (09:06)
[2019-12-15] MEDS: SERTRALINE 50 MG TAB PO SCH (09:06)
[2019-12-15] MEDS: BENZONATATE 100 MG CAPLF PO SCH ×3 (09:06→17:10)
--- NOTE | 2019-12-15 09:10 | NUR ---
PATIENT SITTING ON THE SIDE OF THE BED, AAOX4. AM MEDICATIONS GIVEN. NO S/S OF DISTRESS NOTED. ABLE TO MAKE NEEDS KNOWN. CALL LIGHT WITHIN REACH.
[2019-12-15 09:24] LABS: BILIRUBIN,URINE NEGATIVE (NEGATIVE); BLOOD, URINE NEGATIVE (NEGATIVE); COLOR,URINE YELLOW (YELLOW); LEUKOCYTE ESTERASE ,URINE NEGATIVE (NEGATIVE); NITRITE, URINE NEGATIVE (NEGATIVE); UGLUCOSE NEGATIVE (NEGATIVE)
--- NOTE | 2019-12-15 10:10 | NUR ---
DR. TOLLIVER MADE AWARE OF MAGNESIUM LEVEL 1.6.
[2019-12-15 10:14] LABS: APPEARANCE,URINE CLEAR (CLEAR)
[2019-12-15 10:19] LABS: RBC,URINE 0-5 /HPF (0-5); URIC ACID CRYSTALS,URINE 0-10 /HPF (None Seen); WBC,URINE 0-5 /HPF (0-5)
--- NOTE | 2019-12-15 11:00 | NUR ---
PATIENT AMBULATED IN THE HALLWAY WITH STEADY GAIT.
[2019-12-15] MEDS: INSULIN LISPRO SLIDING SCALE 100 UNITS/ML VIAL SUBQ PRN ×3 (11:48→21:36)
[2019-12-15 12:00] VITALS: BP 130/68
[2019-12-15] MEDS ORDERED: MAG SULF 2000 MG/WATER PREMIX 50 ML IV SCH (12:08)
--- NOTE | 2019-12-15 13:00 | NUR ---
PATIENT AAOX4. AMBULATES WITH STEADY GAIT. NEEDS MET AT THIS TIME. WILL CONTINUE TO MONITOR.
--- NOTE | 2019-12-15 15:30 | NUR ---
REPORT GIVEN TO ADELE PRETTY FOR CONTINUITY OF CARE.
--- NOTE | 2019-12-15 15:35 | NUR ---
RECEIVED PT FROM AM SHIFT NURSE, KETTY, PT IS AWAKE AND AMBULATORY, IV LINE ON THE LEFT HAND G. 22 WITH NS AT 60ML/HR, INFUSING, PT DENIES PAIN AND NO SIGN OF DISTRESS NOTED. WILL MONITOR PT.
[2019-12-15 16:00] VITALS: BP 121/58
--- NOTE | 2019-12-15 17:10 | NUR ---
PT WAS GIVEN INSULIN 4 UNITS FOR THE BLOOD GLUCOSE OF 216 AND THEN TESSALON PERLES WAS GIVEN WELL. WILL MONITOR PT.
--- NOTE | 2019-12-15 17:32 | NUR ---
PT C/O PAIN RATE OF 8/10, AND PAIN MEDICATION WAS GIVEN VIA IV PUSH, WILL RE-ASSESS PAIN AND MONITOR PT.
[2019-12-15] MEDS: THEOPHYLLINE 200 MG TABER PO SCH (18:58)
--- NOTE | 2019-12-15 19:20 | NUR ---
ENDORSED PT TO SUPERVISOR DOCK NURSE FOR CONTINUITY OF CARE.
--- NOTE | 2019-12-15 19:25 | NUR ---
RECEIVED PT IN STABLE CONDITION FROM AM NURSE. AWAKE,ALERT AND ORIENTED X 4. MED SURG PT. JUST CAME BACK FROM THE BATHROOM. NO SOB NOTED. O2 2L//NC. DENIES ANY DISCOMFORT NOR PAIN. MED SURG PT. PLAN OF CARE DISCUSSED AND VERBALIZED UNDERSTANDING. BED OBN LOW POSITION. FREQ ROUNDS NEEDED. SIDE RAILS UP X2. CALL LIGHT PLACED WITHIN EASY REACH.
--- NOTE | 2019-12-15 19:46 | NUR ---
RECEIVED PT FROM AM SHIFT. PT IN NO APPARENT RESPIRATORY DISTRESS AT THIS TIME; HR 85, RR 18, SPO2 95% ON 2L NC. BREATH SOUNDS WERE COARSE. HHN TX GIVEN ORDERED WITH NO ADVERSE REACTION. PT INFORMED TO CALL RN OR DATA REPORT ANALYST WHEN EXPERIENCING SOB. HOB > 30. WILL CONTINUE TO MONITOR PT.
[2019-12-15] MEDS: MONTELUKAST SODIUM 10 MG TAB PO SCH (21:18)
[2019-12-15] MEDS: INSULIN LANTUS 100 UNITS/ML 10 ML VIAL SUBQ SCH (21:25)
--- NOTE | 2019-12-15 21:36 | NUR ---
BLOOD SUGAR WAS CHECKED RESULT 323. INSULIN COVERAGE GIVEN ORDERED. PROVIDED SOME SNACK. WILL CONTINUE TO MONITOR.
--- NOTE | 2019-12-15 23:00 | NUR ---
ASLEEP. NO S/S OF ANY DISTRESS NOR DISCOMFORT NOTED.
[2019-12-16 00:45] VITALS: BP 108/70
--- NOTE | 2019-12-16 01:00 | NUR ---
UP TO THE BATHROOM. NO SOB NOTED. O2 2L/NC ON.
[2019-12-16] MEDS: MORPHINE SULFATE 2 MG/ML SYR IVP PRN ×3 (01:51→10:02)
[2019-12-16] MEDS: ALBUTEROL SULFATE/IPRATROPIU 3 ML SOL IH SCH ×2 (02:01→06:47)
--- NOTE | 2019-12-16 03:00 | NUR ---
ASLEEP. NO S/S OF ANY DISCOMFORT NOTED.
[2019-12-16] MEDS ORDERED: ACETYLCYSTEINE 10% (100 MG/ML) 100 MG/ML VIAL INH PRN (05:10)
[2019-12-16] MEDS: methylPREDNISolone SS 125 MG/2 ML VIAL IVP SCH (05:35)
[2019-12-16] MEDS: BLOOD GLUCOSE MONITORING 1 DEV DEV FS SCH (05:49)
[2019-12-16] MEDS: INSULIN LISPRO SLIDING SCALE 100 UNITS/ML VIAL SUBQ PRN (05:50)
--- NOTE | 2019-12-16 05:50 | NUR ---
BLOOD SUGAR CHECKED RESULT 221. INSULIN COVERAGE SUB Q GIVEN.
[2019-12-16] MEDS: NACL 0.9% 1,000 ML IV SCH (05:53)
[2019-12-16] MEDS: BUDESONIDE 0.5 MG/2 ML NEBU INH SCH (06:47)
--- NOTE | 2019-12-16 07:34 | NUR ---
SHIFT REPORT RECEIVED FROM SERVICE BAR CASHIER NURSE. PT IS IN ED AT THIS TIME SLEEPING. NO DISTRESS NOTED. SAFETY MEASURES IN PLACE. CALL LIGHT IN REACH.
[2019-12-16 07:44] LABS: BASOPHILS % (AUTO) 0.1 % (0.0-2.0); HEMATOCRIT 33.5 % (36-48); LYMPHOCYTES # (AUTO) 0.9 K/uL (2.5-16.5); LYMPHOCYTES % (AUTO) 7.6 % (20.5-51.1); MEAN CORPUSCULAR HEMOGLOBIN 30 pg (27-31); MEAN CORPUSCULAR HGB CONC 33 g/dL (33-37); MEAN CORPUSCULAR VOLUME 90.3 fL (80-94); MONOCYTES # (AUTO) 0.7 K/uL (0.8-1.0); MONOCYTES % (AUTO) 5.7 % (1.7-9.3); NEUTROPHILS # (AUTO) 10.5 K/uL (1.8-7.7); NEUTROPHILS % (AUTO) 86.6 % (42.2-75.2); PLATELET COUNT (AUTO) 267 K/uL (140-450); RED BLOOD CELL COUNT(AUTO) 3.71 MIL/uL (4.20-5.40); RED CELL DISTRIBUTION WIDTH 15.8 % (11.6-13.7); WHITE BLOOD COUNT (AUTO) 12.1 K/uL (4.8-10.8)
[2019-12-16 07:55] LABS: ANION GAP 12.1 (8-16); CARBON DIOXIDE 31.4 mmol/L (21-32); CREATININE 0.8 mg/dL (0.6-1.3); POTASSIUM 4.5 mmol/L (3.5-5.1)
[2019-12-16 07:57] LABS: MAGNESIUM 1.7 mg/dL (1.8-2.4); PHOSPHORUS 3.5 mg/dL (2.5-4.9)
[2019-12-16 08:00] VITALS: BP 120/67
--- NOTE | 2019-12-16 09:30 | NUR ---
PT IS SITTING IN BED AT THIS TIME. NO DISTRESS NOTED. PT IS RESPONSIVE AND ALERT. WILL CONTINUE TO MONITOR. CALL LIGHT IN REACH.
[2019-12-16] MEDS: SERTRALINE 50 MG TAB PO SCH (09:33)
[2019-12-16] MEDS: NICOTINE TRANSD SYS 21 MG/24 HR PATCH TD SCH (09:33)
[2019-12-16] MEDS: LACTOBACILLUS RHAMNOSUS GG 1 EACH CAP PO SCH (09:34)
[2019-12-16] MEDS: AZITHROMYCIN 250 MG TAB PO SCH (09:34)
[2019-12-16] MEDS: BENZONATATE 100 MG CAPLF PO SCH (09:34)
[2019-12-16] MEDS: ASPIRIN 81 MG TAB.CHEW PO SCH (09:34)
[2019-12-16] MEDS: metFORMIN 500 MG TAB PO SCH (09:34)
[2019-12-16] MEDS: PANTOPRAZOLE 40 MG TABEC PO SCH (09:34)
[2019-12-16] MEDS ORDERED: BENZ-196 PO ×2 (10:38→11:58)
[2019-12-16] MEDS ORDERED: PRED10TA5 PO ×2 (10:38→11:58)
[2019-12-16] MEDS ORDERED: NICO1PAT15 TD ×2 (10:38→11:58)
[2019-12-16] MEDS ORDERED: AZIT250T11 PO (10:38)
--- NOTE | 2019-12-16 11:30 | NUR ---
PT WAS DISCHARGED TO DAY. PT'S DISCHARGE INSTRUCTIONS GIVEN TO PATIENT. PT WAS STABLE ANS WALKED WITH A STEADY GAIT AT DISCHARGE TIME. PT'S FAMILY ACCOMPANIED DURING DISCHARGE. IV REMOVED. CATHETER IN TACT. SKIN INTACT. NO COMPLAINS OF PAIN. NO DISTRESS NOTED. BELONGINGS WITH PATIENT. PRESCRIPTION SENT ONLINE TO PHARMACY. ID BAND REMOVED.
[2019-12-16] MEDS ORDERED: AZIT250T3 PO (11:58)
== END 2019-12-16 12:10 | disposition home or self-care (01) | DRG 720 ==
LOC: MED 15:20 → UNDOADMIN 17:42 → MIC 17:42 → MTU 18:08
PROVIDERS: ADMIT General Practice; ATTEND General Practice
PROC: 5A09357 Assistance with Respiratory Ventilation, Less than 24 Consecutive Hours, Continuous Positive Airway Pressure (ICD-10-PCS; principal; 2019-12-13)
DX: A41.9 Sepsis, unspecified organism (principal); J96.21 Acute and chronic respiratory failure with hypoxia; J18.9 Pneumonia, unspecified organism; E11.21 Type 2 diabetes mellitus with diabetic nephropathy; E44.0 Moderate protein-calorie malnutrition; E83.42 Hypomagnesemia; I48.91 Unspecified atrial fibrillation; I10 Essential (primary) hypertension; K21.9 Gastro-esophageal reflux disease without esophagitis; F17.210 Nicotine dependence, cigarettes, uncomplicated; F43.9 Reaction to severe stress, unspecified; Z66 Do not resuscitate; F41.1 Generalized anxiety disorder; J43.9 Emphysema, unspecified; M81.0 Age-related osteoporosis without current pathological fracture; Z68.27 Body mass index [BMI] 27.0-27.9, adult; Z88.1 Allergy status to other antibiotic agents; Z88.0 Allergy status to penicillin; Z88.8 Allergy status to other drugs, medicaments and biological substances; Z79.899 Other long term (current) drug therapy; Z79.4 Long term (current) use of insulin; Z86.718 Personal history of other venous thrombosis and embolism; Z86.711 Personal history of pulmonary embolism; Z83.3 Family history of diabetes mellitus; Z82.49 Family history of ischemic heart disease and other diseases of the circulatory system; Z83.49 Family history of other endocrine, nutritional and metabolic diseases; Z83.79 Family history of other diseases of the digestive system; Z91.14 Patient's other noncompliance with medication regimen
CPT/HCPCS: 36415; 71045; 80048; 80053; 81001; 82140; 82948; 83036; 83605; 83735; 83880; 84100; 84134; 84443; 84484; 85025; 85610; 85730; 87040; 87070; 87081; 87086; 87205; 87804; 93970; 94640; 96365; 96367; 96375; 99285; G0482; J0456; J0696; J1644; J1815; J2270; J2930; J3010; J3475; J7030; J7060; J7620; J7626; Q0092

== ENCOUNTER 2020-03-29 08:54 | Inpatient (IN) | payer OTHER, SELFPAY ==
[~2020-03-29] VITALS: Ht 157.5 cm; Wt 68.0 kg
[~2020-03-29 08:54] MED LIST changes: +AZIT250T11 PO; +AZIT250T3 PO; +NICO1PAT15 TD; +PRED10TA5 PO
[2020-03-29 09:07] VITALS: BP 147/97
--- NOTE | 2020-03-29 09:07 | NUR ---
Patient ambulated to bed 9. RN evaluating patient at bedside.
--- NOTE | 2020-03-29 09:16 | NUR ---
65 Y/O FEMALE FROM HOME C/O SOB, WHEEZING, COUGH, HEADACHE, AND CHEST DISCOMFORT X 4 DAYS. PT STATES PRODUCTIVE, MOIST COUGH WITH YELLOW/GREEN SPUTUM. DENIES FEVER. STATES SHE HAS TAKEN INHALER WITH NO CHANGE. RR EVEN, DEEP, AND TACHYPNIC. STATES SHE IS A FORMER SMOKER. POSITIONED FOR COMFORT. VSS PLACED ON PULSE OX. MEDHX: HTN, COPD, DM, ASTHMA, OSTEOPOROSIS
--- NOTE | 2020-03-29 09:19 | NUR ---
DR ALATORRE AT BEDSIDE EXAMINING PT
[2020-03-29] MEDS ORDERED: methylPREDNISolone SS 125 MG/2 ML VIAL IVP ONE (09:25)
[2020-03-29] MEDS ORDERED: ALBUTEROL 0.083% 2.5 MG/3 ML NEBU INH ONE ×2 (09:25→11:15)
[2020-03-29] MEDS ORDERED: MAG SULF 2000 MG/WATER PREMIX 50 ML IV ONE (09:25)
[2020-03-29] MEDS ORDERED: IPRATROPIUM 0.02% 0.5 MG/2.5 ML NEBU INH ONE (09:25)
[2020-03-29] MEDS ORDERED: MORPHINE SULFATE 2 MG/ML SYR IVP ONE (09:25)
--- NOTE | 2020-03-29 09:40 | NUR ---
20G IV PLACED TO LT FOREARM. MEDICATIONS GIVEN. PT TOLERATED WELL
--- NOTE | 2020-03-29 09:46 | NUR ---
RESPIRATORY AT BEDSIDE FOR RESPIRATORY INTERVENTION
--- NOTE | 2020-03-29 09:50 | NUR ---
COVID-19 SWAB COLLECTED FROM PT AT THIS TIME
--- NOTE | 2020-03-29 10:02 | NUR ---
X-Ray at bedside.
[2020-03-29 10:03] LABS: BASOPHILS # (AUTO) 0.1 K/uL (0.00-0.22); BASOPHILS % (AUTO) 0.9 % (0.0-2.0); EOSINOPHILS # (AUTO) 0.1 K/uL (0-0.4); EOSINOPHILS % (AUTO) 1.2 % (0.0-4.0); HEMATOCRIT 40.4 % (36-48); HEMOGLOBIN 13.4 g/dL (12.0-16.0); LYMPHOCYTES # (AUTO) 1.7 K/uL (2.5-16.5); LYMPHOCYTES % (AUTO) 22.8 % (20.5-51.1); MEAN CORPUSCULAR HEMOGLOBIN 31 pg (27-31); MEAN CORPUSCULAR HGB CONC 33 g/dL (33-37); MEAN CORPUSCULAR VOLUME 92.1 fL (80-94); MONOCYTES # (AUTO) 0.2 K/uL (0.8-1.0); MONOCYTES % (AUTO) 3.1 % (1.7-9.3); NEUTROPHILS # (AUTO) 5.4 K/uL (1.8-7.7); PLATELET COUNT (AUTO) 274 K/uL (140-450); RED BLOOD CELL COUNT(AUTO) 4.39 MIL/uL (4.20-5.40); RED CELL DISTRIBUTION WIDTH 14.8 % (11.6-13.7); WHITE BLOOD COUNT (AUTO) 7.5 K/uL (4.8-10.8)
--- NOTE | 2020-03-29 10:54 | NUR ---
PT AWAKE AND ALERT, POSITIONED FOR COMFORT. REMAINS ON IMAGING SYSTEM ADMINISTRATOR, PULSE OX, AND BP CUFF PLACED. VSS. WILL CONTINUE TO MONITOR
[2020-03-29] MEDS ORDERED: AZITHROMYCIN 500 MG in DEXTROSE 5% 250 ML IV ONE (11:00)
[2020-03-29 11:01] LABS: ANION GAP 14.2 (8-16); CARBON DIOXIDE 27.1 mmol/L (21-32); POTASSIUM 5.3 mmol/L (3.5-5.1)
[2020-03-29 11:02] LABS: ALBUMIN 3.5 g/dL (3.4-5.0); TOTAL BILIRUBIN 0.2 mg/dL (0.0-1.0)
--- NOTE | 2020-03-29 11:13 | NUR ---
DR ALATORRE AT BEDSIDE RE-EVALUATING PT
[2020-03-29] MEDS ORDERED: HYDROcodone/APAP 5/325 MG 1 TAB TAB PO ONE (11:25)
--- NOTE | 2020-03-29 11:26 | NUR ---
PT PLACED ON 2L NC PER DR ALATORRE.
--- NOTE | 2020-03-29 11:36 | NUR ---
RESPIRATORY AT BEDSIDE FOR BREATHING TREATMENT
[2020-03-29] MEDS ORDERED: ALBUTEROL HFA MDI 90 MCG/ACTUATION 8 GM INH PRN (11:40)
[2020-03-29] MEDS ORDERED: ACETAMINOPHEN 325 MG TAB PO PRN (11:40)
[2020-03-29] MEDS ORDERED: HYDROcodone/APAP 5/325 MG 1 TAB TAB PO PRN (11:40)
[2020-03-29] MEDS ORDERED: DOCUSATE SODIUM 100 MG GELCAP PO PRN (11:40)
[2020-03-29] MEDS ORDERED: ONDANSETRON 4 MG/2 ML VIAL IM/IVP PRN (11:40)
[2020-03-29] MEDS ORDERED: AZITHROMYCIN 500 MG INJ VIAL IV ONE (11:43)
[2020-03-29] MEDS ORDERED: DEXTROSE 50% 50 ML SYR IVP PRN (11:55)
--- NOTE | 2020-03-29 12:20 | NUR ---
PATIENT ADMITTED FROM ED, TRANSPORTED VIA W/C. REPORT GIVEN BY ADELE MARCUS. PATIENT IS ALERT AND ORIENTED X4. INTRODUCED SELF AND ROOM. PLANS OF CARE DISCUSSED. IV INTACT AND PATENT TO LEFT FOREARM. PER REPORT IV ANTIBIOTIC STARTED. INITIAL ASSESSMENT TO BE DONE. CALL LIGHT WITHIN REACH.
--- NOTE | 2020-03-29 12:21 | NUR ---
Patient will be admitted to care of DR VALIENTE. Admited to TELE. Will go to room 116. Belongings list completed. Report to ADELE HDEZ.
[2020-03-29 13:00] VITALS: BP 124/87
[2020-03-29] MEDS: NACL 0.9% 1,000 ML IV SCH (13:00)
--- NOTE | 2020-03-29 13:00 | NUR ---
SKIN INTACT AND PATENT. VS STABLE. O2 ON @ 2L VIA NC. DENIES ANY DISCOMFORT AT THIS TIME. Addendum: 03/29/20 at 1845 by Clifton Fleming RN CORRECTION TO NOTE ABOVE: SKIN INTACT AND DRY.
[2020-03-29 13:22] LABS: PROTHROMBIN TIME 9.9 secs (10.8-13.4)
[2020-03-29 13:27] LABS: D-DIMER < 100 ng/ml (0-400)
[2020-03-29] MEDS ORDERED: LORazepam 1 MG TAB PO PRN (14:00)
[2020-03-29 14:30] LABS: MAGNESIUM 1.9 mg/dL (1.8-2.4); PHOSPHORUS 3.7 mg/dL (2.5-4.9); THYROID STIMULATING HORMONE 1.59 uIU/mL (0.34-3.74)
[2020-03-29] MEDS ORDERED: SODIUM POLYSTYRENE 15 GM/60 ML UDBTL PO SCH (14:30)
[2020-03-29] MEDS: MORPHINE SULFATE 2 MG/ML SYR IVP PRN ×3 (14:32→22:44)
--- NOTE | 2020-03-29 14:35 | NUR ---
PATIENT C/O CHEST PAIN DUE TO COPD. MORPHINE IVP GIVEN ORDERED.
[2020-03-29 16:00] VITALS: BP 122/73
--- NOTE | 2020-03-29 16:40 | NUR ---
AWAKE AND ALERT VERBALLY RESPONSIVE SITTING UP IN BED HFW POSITION REFUSED ABG OFF SUPPLEMENTAL OXYGEN AT THIS TIME USES PRN DURING DAY WHEN SOB CONTINUOUS NEWTON HDEZ/RN NOTIFIED
--- NOTE | 2020-03-29 16:40 | NUR ---
PER RT PATIENT REFUSED ABG.
[2020-03-29] MEDS: BLOOD GLUCOSE MONITORING 1 DEV DEV FS SCH ×2 (16:43→21:23)
--- NOTE | 2020-03-29 16:44 | NUR ---
DR. WEINBERG MADE AWARE OF PATIENT'S BG 544. PER MD GIVEN 10UNITS OF SLIDING SCALE HUMALOG AT THIS TIME. HE WILL SEE PATIENT.
[2020-03-29] MEDS ORDERED: NACL 0.9% 500 ML IV SCH (16:45)
[2020-03-29] MEDS: THEOPHYLLINE 200 MG TABER PO SCH (16:45)
[2020-03-29] MEDS: INSULIN LISPRO SLIDING SCALE 100 UNITS/ML VIAL SUBQ PRN ×2 (16:50→21:21)
[2020-03-29] MEDS: metFORMIN 500 MG TAB PO SCH (16:52)
--- NOTE | 2020-03-29 16:57 | NUR ---
DR. WEINBERG ORDERED 500ML BOLUS NOW.
--- NOTE | 2020-03-29 17:00 | NUR ---
DR. WEINBERG NOTIFIED OF PATIENT'S REFUSAL OF ABG FOREMENTIONED WILL RELAY TO DR. HUANG VALENTIN (ORIGINATOR OF ORDER)
--- NOTE | 2020-03-29 18:35 | NUR ---
PATIENT MEDICATED FOR C/O CHEST PAIN MID AREA. MORPHINE GIVEN ORDERED.
--- NOTE | 2020-03-29 18:40 | NUR ---
PATIENT C/O WHEEZING AT THIS TIME. RT MADE AWARE. PER RT THEY WILL GIVE TREATMENT ORDERED.
--- NOTE | 2020-03-29 19:01 | NUR ---
PATIENT IN STABLE CONDITION. WILL ENDORSE TO NIGHT NURSE.
--- NOTE | 2020-03-29 19:02 | NUR ---
RECEIVED REPORT FROM DAY SHIFT NURSE. PATIENT SITTING DOWN IN BED WATCHING TV. NO DISTRESS NOTED. HAS INTERMITTENT PRODUCTIVE COUGH PER PATIENT REPORTS. AAOX4, CALM, COOPERATIVE, SKIN COLOR APPROPRIATE TO ETHNICITY, WARM TO TOUCH. SKIN INTACT. RESPIRATIONS EVEN, UNLABORED, ON O2 2L/MIN VIA NC. IV SITE INTACT, PATENT, AND INFUSING IVF PER MD ORDERS. SAFETY MEASURES IN PLACE, CALL LIGHT WITHIN REACH. WILL CONTINUE TO MONITOR.
[2020-03-29] MEDS ORDERED: ALBUTEROL SULFATE/IPRATROPIU 3 ML SOL IH ONE (19:55)
[2020-03-29] MEDS: BUDESONIDE 0.5 MG/2 ML NEBU INH SCH (19:55)
--- NOTE | 2020-03-29 19:55 | NUR ---
RECEIVED PATIENT ON 2L NASAL CANNULA, PULSE OX SAT 98%. NEW MED ORDERS INITIATED BASED ON NEGATIVE COVID RESULTS. SCHEDULED BREATHING TREATMENTS ADMINISTERED. TOLERATED TXs WELL WITHOUT ADVERSE SIDE EFFECTS. SPUTUM SPECIMEN CUP LEFT AT BEDSIDE. PT STATES COUGH IS NOT PRODUCTIVE AT THIS TIME; UNABLE TO PROVIDE SPUTUM SAMPLE. INCENTIVE SPIROMETER LEFT AT BEDSIDE. PATIENT STATES SHE IS NOT ABLE TO PERFORM I.S. AT THIS TIME. WILL ENCOURAGE EQUIPMENT USAGE. PATIENT CONTINUES TO REFUSE PREVIOUSLY ORDERED ABG. PT MADE AWARE OF ORDERED MEDICATION FREQUENCY AND INSTRUCTED TO CALL NEEDED FOR SOB. NO ACUTE RESPIRATORY DISTRESS NOTED AT THIS TIME. WILL CONTINUE TO MONITOR.
[2020-03-29 20:00] VITALS: BP 125/80
[2020-03-29] MEDS ORDERED: ALBUTEROL SULFATE/IPRATROPIU 3 ML SOL IH SCH (20:00)
[2020-03-29 20:35] LABS: APPEARANCE,URINE CLEAR (CLEAR); BILIRUBIN,URINE NEGATIVE (NEGATIVE); BLOOD, URINE TRACE-L (NEGATIVE); COLOR,URINE YELLOW (YELLOW); LEUKOCYTE ESTERASE ,URINE NEGATIVE (NEGATIVE); NITRITE, URINE NEGATIVE (NEGATIVE); UGLUCOSE 3+ (NEGATIVE)
[2020-03-29 20:43] LABS: BARBITURATE, URINE NEGATIVE ng/ml (NEG <=200); BENZODIAZEPINE, URINE NEGATIVE ng/mL (NEG <=200); CANNABINOID, URINE NEGATIVE ng/mL (NEG <=50); COCAINE, URINE NEGATIVE ng/mL (NEG <=300); PHENCYCLIDINE SCREEN,URINE NEGATIVE ng/mL (NEG <=25)
[2020-03-29 20:44] LABS: OPIATE, URINE POSITIVE ng/mL (NEG <=2000)
[2020-03-29] MEDS: MONTELUKAST SODIUM 10 MG TAB PO SCH (21:19)
[2020-03-29] MEDS: DOCUSATE SODIUM 100 MG GELCAP PO SCH (21:19)
[2020-03-29] MEDS: INSULIN LANTUS 100 UNITS/ML 10 ML VIAL SUBQ SCH (21:21)
[2020-03-29] MEDS ORDERED: ZOLP5TAB1 PO (21:28)
--- NOTE | 2020-03-29 21:29 | NUR ---
SCHEDULED MEDICATIONS DUE GIVEN. WILL CONTINUE TO MONITOR. Addendum: 03/29/20 at 2355 by Aravind Beasley RN BLOOD GLUCOSE 522, PER DR. DRAKE GIVE 10 UNITS OF HUMALOG.
[2020-03-29] MEDS ORDERED: INSU100S22 SUBQ (22:11)
[2020-03-29] MEDS ORDERED: ZOLPIDEM 5 MG TAB PO ONE (22:40)
[2020-03-29] MEDS: BENZONATATE 100 MG CAPLF PO PRN (22:43)
--- NOTE | 2020-03-29 22:56 | NUR ---
PATIENT COMPLAINS OF PAIN AND COUGH, MORPHINE GIVEN AT THIS TIME. BENZONTATE COUGH MEDICATION ALSO GIVEN AT THIS TIME. WILL CONTINUE TO MONITOR.
[2020-03-30] VITALS: BP 139/72
--- NOTE | 2020-03-30 00:10 | NUR ---
SCHEDULED BREATHING TREATMENT ADMINISTERED AT THIS TIME. TOLERATED TX WELL WITH NO ADVERSE SIDE EFFECTS. NO ACUTE RESPIRATORY DISTRESS NOTED AT THIS TIME. WILL CONTINUE TO MONITOR. Addendum: 03/30/20 at 0444 by Dona John RT PT AGAIN REFUSED TO USE INCENTIVE SPIROMETER. PT STATES "WILL DO IT TOMORROW WHEN SHE IS FEELING BETTER".
--- NOTE | 2020-03-30 02:09 | NUR ---
PATIENT LYING DOWN IN BED SLEEPING, AROUSABLE BY VOICE. NO DISTRESS NOTED. DENIES ANY PAIN. WILL CONTINUE TO MONITOR.
[2020-03-30] MEDS: MORPHINE SULFATE 2 MG/ML SYR IVP PRN ×6 (02:47→23:42)
--- NOTE | 2020-03-30 02:48 | NUR ---
PATIENT WENT TO USE RESTROOM AND COMPLAINS OF PAIN, MORPHINE GIVEN AT THIS TIME. WILL CONTINUE TO MONITOR.
--- NOTE | 2020-03-30 03:00 | NUR ---
1 UNIT PLASMA COMPLETED. NO REACTIONS NOTED. WILL CONTINUE TO MONITOR.
[2020-03-30 04:00] VITALS: BP 127/75
[2020-03-30] MEDS: ALBUTEROL SULFATE/IPRATROPIU 3 ML SOL IH SCH ×5 (04:14→15:52)
--- NOTE | 2020-03-30 04:20 | NUR ---
SCHEDULED BREATHING TREATMENT ADMINISTERED AT THIS TIME. TOLERATED TX WELL WITH NO ADVERSE SIDE EFFECTS. NO ACUTE RESPIRATORY DISTRESS NOTED AT THIS TIME. WILL CONTINUE TO MONITOR.
[2020-03-30] MEDS: methylPREDNISolone SS 40 MG/ML VIAL IVP SCH ×3 (04:43→21:31)
--- NOTE | 2020-03-30 04:46 | NUR ---
SCHEDULED MEDICATIONS DUE GIVEN. WILL CONTINUE TO MONITOR.
[2020-03-30] MEDS ORDERED: methylPREDNISolone SS 125 MG/2 ML VIAL IVP SCH (05:00)
[2020-03-30] MEDS: PANTOPRAZOLE 40 MG TABEC PO SCH (06:39)
[2020-03-30] MEDS: NACL 0.9% 1,000 ML IV SCH (06:40)
[2020-03-30] MEDS: BLOOD GLUCOSE MONITORING 1 DEV DEV FS SCH ×4 (06:40→21:28)
[2020-03-30] MEDS: INSULIN LISPRO SLIDING SCALE 100 UNITS/ML VIAL SUBQ PRN ×4 (06:41→21:38)
--- NOTE | 2020-03-30 06:47 | NUR ---
PATIENT COMPLAINS OF PAIN, MORPHINE GIVEN AT THIS TIME. OTHER SCHEDULED MEDICATIONS DUE GIVEN. WILL CONTINUE TO MONITOR.
--- NOTE | 2020-03-30 07:00 | NUR ---
RECEIVED REPORT FROM DIESEL TRUCK TECHNICIAN NURSE. PT IS CURRENTLY ALERT, AWAKE, AND SITTING AT EDGE OF BED WATCHING TV. PT IS IN NO SIGNS OF DISTRESS OR COMPLAINTS OF PAIN AT THIS TIME. RESPIRATIONS ARE EVEN AND UNLABORED ON ROOM AIR. SKIN IS INTACT WITH IV ASYMPTOMATIC PATENT AND INFUSING PER ORDER. SAFETY MEASURES IN PLACE, BED IS IN LOW SEMI-FOWLERS POSITION, AND WILL CONTINUE TO MONITOR.
[2020-03-30 07:08] LABS: BASOPHILS % (AUTO) 0.4 % (0.0-2.0); EOSINOPHILS % (AUTO) 0.3 % (0.0-4.0); HEMATOCRIT 39.3 % (36-48); HEMOGLOBIN 12.8 g/dL (12.0-16.0); LYMPHOCYTES # (AUTO) 1.9 K/uL (2.5-16.5); LYMPHOCYTES % (AUTO) 20.4 % (20.5-51.1); MEAN CORPUSCULAR HEMOGLOBIN 30 pg (27-31); MEAN CORPUSCULAR HGB CONC 33 g/dL (33-37); MEAN CORPUSCULAR VOLUME 92.8 fL (80-94); MONOCYTES # (AUTO) 0.4 K/uL (0.8-1.0); MONOCYTES % (AUTO) 3.8 % (1.7-9.3); NEUTROPHILS # (AUTO) 6.9 K/uL (1.8-7.7); NEUTROPHILS % (AUTO) 75.1 % (42.2-75.2); PLATELET COUNT (AUTO) 284 K/uL (140-450); RED BLOOD CELL COUNT(AUTO) 4.24 MIL/uL (4.20-5.40); RED CELL DISTRIBUTION WIDTH 14.7 % (11.6-13.7); WHITE BLOOD COUNT (AUTO) 9.2 K/uL (4.8-10.8)
--- NOTE | 2020-03-30 07:11 | NUR ---
GAVE REPORT TO AM SHIFT NURSE FOR CONTINUITY OF CARE. PATIENT IN STABLE CONDITION.
--- NOTE | 2020-03-30 07:35 | NUR ---
AWAKE AND ALERT VERBALLY RESPONSIVE SPUTUM CULTURE SPECIMEN CUP AND INCENTIVE SPIROMETRY AT BEDSIDE PATIENT AWARE OF SPECIMEN COLLECTION AND PRACTICE OF INCENTIVE SPIROMETRY THERAPY
[2020-03-30] MEDS: BUDESONIDE 0.5 MG/2 ML NEBU INH SCH (07:45)
[2020-03-30 07:50] LABS: CHOL/HDL RATIO 2.4 (1-4.5); MAGNESIUM 1.8 mg/dL (1.8-2.4); PHOSPHORUS 2.5 mg/dL (2.5-4.9)
[2020-03-30 08:00] VITALS: BP 119/78
[2020-03-30 08:06] LABS: ANION GAP 14.9 (8-16); CREATININE 0.9 mg/dL (0.6-1.3); POTASSIUM 4.9 mmol/L (3.5-5.1)
[2020-03-30] MEDS: ASPIRIN 81 MG TAB.CHEW PO SCH (08:52)
[2020-03-30] MEDS: NICOTINE TRANSD SYS 7 MG/24 HR PATCH TD SCH (08:52)
[2020-03-30] MEDS: metFORMIN 500 MG TAB PO SCH ×2 (08:52→17:02)
[2020-03-30] MEDS: ENOXAPARIN 40 MG/0.4 ML SYR SUBQ SCH (08:53)
[2020-03-30] MEDS: SERTRALINE 50 MG TAB PO SCH (08:53)
[2020-03-30] MEDS: DOCUSATE SODIUM 100 MG GELCAP PO SCH ×2 (08:53→21:31)
[2020-03-30] MEDS: AZITHROMYCIN 250 MG TAB PO SCH (08:53)
--- NOTE | 2020-03-30 08:56 | NUR ---
ADMINISTERED MEDICATIONS PER ORDER AND TOLERATED WELL. PT JUST GOT BACK TO ROOM AFTER WALKING AROUND UNIT. PT IS IN NO SIGNS OF DISTRESS AT THE MOMENT. SAFETY MEASURES IN PLACE AND WILL CONTINUE TO MONITOR.
[2020-03-30] MEDS ORDERED: VITAMIN D 400 IU TAB PO SCH (09:00)
[2020-03-30] MEDS ORDERED: ZINC SULF 220 MG CAP PO SCH (09:00)
[2020-03-30] MEDS ORDERED: ASCORBIC ACID 500 MG TAB PO SCH (09:00)
--- NOTE | 2020-03-30 09:34 | NUR ---
DICTIONARY EDITOR NOTE: Basic Screen: Yes High Risk DC Screen [place]: EMILY SHARMA Home Relationship: DAUGHTER Pre-Admission Living Arrangements: Lives with Other Prior ADL Independent Current Home Health Name/Tel: N/A Current DME/02 Name/Tel: N/A Current Hospice Name/Tel: N/A Current Dialysis Name/Tel: N/A Healthcare Decision Maker: Patient Advance Directive No Physician Orders for Life Sustaining Treatment Form No Patient/Family Have Educational Needs No Teaching Tools: Verbal Discipline: Case Mgt/Social Svcs Tentative Discharge Plan/Destination: No Needs Identified Will require assistance post discharge: No Referred to [employer]ight Inspector: No Tentative Discharge Plan Summary: PATIENT IS A 65-YEAR-OLD FEMALE ADMITTED FOR SOB, COPD, R/O COVID. PATIENT HAS PMHX OF COPD, DM, ASTHMA, ASIYA, DVT, PE, GERD, OSTEOPOROSIS, HTN, AND ATRILA FIBRILLATION. PATIENT WAS ADMITTED FROM HOME WHERE SHE LIVES WITH HER DAUGHTER. SW CONTACTED PATIENT'S DAUGHTER EMILY SHARMA [phone]. PER EMILY, PATIENT NEEDS ASSISTANCE WITH ADLS AND EMILY IS PRIMARY CAREGIVER. EMILY REPORTED THAT PATIENT HAS 130 IHSS HOURS A MONTH. EMILY STATED THAT SHE ASSISTS PATIENT WITH ALL ADLS AND THAT ALL PATIENT'S NEEDS ARE BEING MET. EMILY REPORTED NO MENTAL HEALTH OR SUBSTANCE ABUSE HISTORY. TENTATIVE DISCHARGE PLAN IS FOR PATIENT TO RETURN HOME. NO FURTHER NEEDS IDENTIFIED. Signature: BHASKAR MARTINEZ Date: Mar 30, 2020 Time: 09:26
--- NOTE | 2020-03-30 10:56 | NUR ---
ADMINISTERED MEDICATIONS PER ORDER AND TOLERATED WELL. BLOOD GLUCOSE IS 347 AND 8 UNITS OF INSULIN WAS ADMINISTERED PER PARAMETERS. PT COMPLAINS OF 8/10 CHEST PAIN AND WANTED MORPHINE. MORPHINE WAS GIVEN AND WILL REASSESS PAIN IN ONE HOUR. SAFETY MEASURES IN PLACE AND WILL CONTINUE TO MONITOR.
--- NOTE | 2020-03-30 11:00 | NUR ---
DC PLANNIN YRS OLD FEMALE PATIENT WAS ADMITTED FROM HOME WITH A DX OF SOB, COPD R/O COVID. PT HAS A HX OF COPD, EMPHYSEMA, HTN,DM, AND A-FIB. CXR SHOWED NO ACUTE CHEST FINDINGS. COVID GARRY NEGATIVE. RT PROTOCOL INITIATED , SPUTUM, URINE AND BLOOD CULTURE PENDING. CONTINUED HOME MEDS AND STARTED IV SOLU MEDROL, IV ABX AZITHROMYCIN . CONSULTED WITH [facility] . DC PLAN TO GO HOME WHEN STABLE CM TO FOLLOW Addendum: 03/31/20 at 1134 by Janee Wilkinson CM DC PLANNING: SEEN BY PULMO DR JENKINS STATED STABLE FOR DISCHARGE ON TAPING DOSE OF STEROIDS AND BRONCHODILATOR. PT WAS INSTRUCTED BY DR JENKINS TO GO TO HIS OFFICE AND MEDICAL CLERICAL ASSISTANT SAMPLES OF [place] .PT VERBALIZED UNDERSTANDING. PT WILL BE DC TODAY. CM TO FOLLOW.
[2020-03-30 12:00] VITALS: BP 118/67
--- NOTE | 2020-03-30 12:57 | NUR ---
ADMINISTERED MEDICATIONS PER ORDER AND TOLERATED WELL. PT IS CURRENTLY WALKING AROUND UNIT WITH STEADY GAIT AND NO SIGNS OF DISTRESS. SAFETY MEASURES IN PLACE AND WILL CONTINUE TO MONITOR.
[2020-03-30] MEDS: BENZONATATE 100 MG CAPLF PO PRN (14:53)
--- NOTE | 2020-03-30 14:57 | NUR ---
ADMINISTERED MEDICATIONS PER ORDER AND TOLERATED WELL. PT COMPLAINS OF 8/10 CHEST PAIN. MORPHINE WAS ADMINISTERED. WILL REASSESS PAIN IN ONE HOUR. PT ALSO ASKED FOR HER COUGHING MEDICATION. SAFETY MEASURES IN PLACE AND WILL CONTINUE TO MONITOR.
--- NOTE | 2020-03-30 15:58 | NUR ---
RESPIRATORY THERAPIST IS CURRENTLY AT BEDSIDE. PT IS IN NO SIGNS OF DISTRESS AND HAS VERBALIZED PAIN RELIEF. SAFETY MEASURES IN PLACE AND WILL CONTINUE TO MONITOR.
[2020-03-30 16:00] VITALS: BP 123/52
[2020-03-30] MEDS: THEOPHYLLINE 200 MG TABER PO SCH (17:00)
--- NOTE | 2020-03-30 17:09 | NUR ---
ADMINISTERED MEDICATIONS PER ORDER AND TOLERATED WELL. BLOOD GLUCOSE IS CURRENTLY 281 THEREFORE 6 UNITS OF INSULIN WAS ADMINISTERED. PT IS IN NO SIGNS OF DISTRESS AT THIS TIME. SAFETY MEASURES IN PLACE AND WILL CONTINUE TO MONITOR.
--- NOTE | 2020-03-30 17:37 | NUR ---
PT IS CURRENTLY LAYING DOWN IN BED WITH NO SIGNS OF DISTRESS AT THIS TIME. SAFETY MEASURES IN PLACE AND WILL CONTINUE TO MONITOR.
--- NOTE | 2020-03-30 18:36 | NUR ---
PT IS CURRENTLY SITTING IN BED WATCHING TV WITH NO SIGNS OF DISTRESS. PT DID NOT LIKE DINNER AND REQUESTED A HAM SANDWICH. SAFETY MEASURES IN PLACE, AND WILL ENDORSE TO SENIOR STEREO COMPILER TEAM LEAD NURSE FOR CONTINUITY OF CARE.
--- NOTE | 2020-03-30 19:30 | NUR ---
RECEIVED PT AAOX4 , NID - O2 SAT WNL , AMBULATORY , C/O PAIN - JUST MEDICATED . IV SITE INTACT AND PATENT , ON TELE MONITOR - SR , SAFETY MEASURES IN PLACE - CALL LIGHT WITHIN REACH . PLAN OF CARE DISCUSSED AND VERBALIZE UNDERSTANDING . WILL CONT. TO MONITOR.
[2020-03-30 20:00] VITALS: BP 122/65
[2020-03-30] MEDS ORDERED: ZOLPIDEM 5 MG TAB PO SCH (21:00)
[2020-03-30] MEDS: MONTELUKAST SODIUM 10 MG TAB PO SCH (21:31)
[2020-03-30] MEDS: INSULIN LANTUS 100 UNITS/ML 10 ML VIAL SUBQ SCH (21:32)
--- NOTE | 2020-03-30 22:00 | NUR ---
MADE ROUNDS . NO S/SX OF ACUTE DISTRESS NOTED . ON TELE MONITOR.
[2020-03-31] VITALS: BP 133/59
--- NOTE | 2020-03-31 | NUR ---
MADE ROUNDS . NO S/SX OF ACUTE DISTRESS NOTED . CALL LIGHT WITHIN REACH
--- NOTE | 2020-03-31 02:00 | NUR ---
SLEEPING - CHEST RISE AND FALL EQUALLY. WILL CONT. TO MONITOR.
[2020-03-31] MEDS: NACL 0.9% 1,000 ML IV SCH ×2 (03:40→05:24)
[2020-03-31 04:00] VITALS: BP 136/75
--- NOTE | 2020-03-31 04:00 | NUR ---
ENDORSED TO GURDEEP VASQUEZ FOR CONTINUITY OF CARE - PT - STABLE.
--- NOTE | 2020-03-31 04:01 | NUR ---
RECD. SLEEPING BUT EASILY AROUSABLE. IV SALINE LOCK AT THE LEFT FOREARM G20, PATENT AND INTACT. WHEELCHAIR NEAR BEDSIDE. NO APPEARANCE OF PAIN OR DISTRESS NOTED. Addendum: 03/31/20 at 0631 by Luma Wiley LVN CORRECTION: THIS CHARTING IS NOT FOR THIS PATIENT.
--- NOTE | 2020-03-31 04:01 | NUR ---
RECD. SITTING ON BED, AWAKE, A/OX4. RESPIRATION EVEN AND UNLABORED. IV OF NS AT 50 ML/HR INFUSING, LEFT FOREARM G20. INDEPENDENT, AMBULATORY TO THE BATHROOM, OCCASIONALLY WITH UNPRODUCTIVE COUGH. DENIES PAIN 0/10.
[2020-03-31] MEDS ORDERED: methylPREDNISolone SS 40 MG/ML VIAL IVP SCH ×2 (05:00→21:00)
[2020-03-31] MEDS: methylPREDNISolone SS 40 MG/ML VIAL IVP SCH (05:09)
[2020-03-31] MEDS: MORPHINE SULFATE 2 MG/ML SYR IVP PRN ×3 (05:10→13:21)
--- NOTE | 2020-03-31 06:30 | NUR ---
AMBULATING IN THE HALLWAY, STATED FEELING BETTER. WILL ENDORSE TO AM SHIFT NURSE FOR CONTINUITY OF CARE.
[2020-03-31 06:42] LABS: BASOPHILS # (AUTO) 0.1 K/uL (0.00-0.22); BASOPHILS % (AUTO) 0.6 % (0.0-2.0); EOSINOPHILS % (AUTO) 0.1 % (0.0-4.0); HEMATOCRIT 39.6 % (36-48); HEMOGLOBIN 12.9 g/dL (12.0-16.0); LYMPHOCYTES # (AUTO) 1.7 K/uL (2.5-16.5); LYMPHOCYTES % (AUTO) 18.3 % (20.5-51.1); MEAN CORPUSCULAR HEMOGLOBIN 30 pg (27-31); MEAN CORPUSCULAR HGB CONC 33 g/dL (33-37); MEAN CORPUSCULAR VOLUME 92.7 fL (80-94); MONOCYTES # (AUTO) 0.3 K/uL (0.8-1.0); MONOCYTES % (AUTO) 3.2 % (1.7-9.3); NEUTROPHILS # (AUTO) 7.2 K/uL (1.8-7.7); NEUTROPHILS % (AUTO) 77.8 % (42.2-75.2); PLATELET COUNT (AUTO) 302 K/uL (140-450); RED BLOOD CELL COUNT(AUTO) 4.28 MIL/uL (4.20-5.40); WHITE BLOOD COUNT (AUTO) 9.2 K/uL (4.8-10.8)
[2020-03-31] MEDS: PANTOPRAZOLE 40 MG TABEC PO SCH (06:51)
[2020-03-31] MEDS: INSULIN LISPRO SLIDING SCALE 100 UNITS/ML VIAL SUBQ PRN ×2 (06:54→12:32)
[2020-03-31] MEDS: BUDESONIDE 0.5 MG/2 ML NEBU INH SCH (06:57)
[2020-03-31] MEDS: ALBUTEROL SULFATE/IPRATROPIU 3 ML SOL IH SCH ×2 (06:57→13:37)
[2020-03-31 07:06] LABS: CREATININE 0.8 mg/dL (0.6-1.3)
--- NOTE | 2020-03-31 07:30 | NUR ---
RECEIVED REPORT FROM NIGHT NURSE. PATIENT IS ALERT AND ORIENTED X4. AMBULATING AROUND THE HALLWAYS WITH STEADY GAIT. IV INTACT AND PATENT INFUSING WITH NS AT 50 ML PER HOUR VIA LEFT FOREARM. RESPIRATIONS EVEN AND UNLABORED ON ROOM AIR. PLAN OF CARE DISCUSSED. PATIENT BACK IN THE ROOM AND CALL LIGHT WITHIN REACH.
[2020-03-31] MEDS: BLOOD GLUCOSE MONITORING 1 DEV DEV FS SCH ×2 (07:55→12:12)
[2020-03-31 08:00] VITALS: BP 134/76
[2020-03-31] MEDS: AZITHROMYCIN 250 MG TAB PO SCH (09:08)
[2020-03-31] MEDS: ASPIRIN 81 MG TAB.CHEW PO SCH (09:09)
[2020-03-31] MEDS: NICOTINE TRANSD SYS 7 MG/24 HR PATCH TD SCH ×2 (09:09→09:17)
[2020-03-31] MEDS: metFORMIN 500 MG TAB PO SCH (09:09)
[2020-03-31] MEDS: DOCUSATE SODIUM 100 MG GELCAP PO SCH (09:09)
[2020-03-31] MEDS: SERTRALINE 50 MG TAB PO SCH (09:10)
--- NOTE | 2020-03-31 09:10 | NUR ---
PATIENT SITTING ON THE SIDE OF THE BED. ALERT AND ORIENTED X4. C/O PAIN TO CHEST AREA, NON RADIATING. MORPHINE GIVEN ORDERED. ABLE TO VERBALIZE NEEDS. BREATHING WAS EVEN AND UNLABORED. NO S/S OF DISTRESS NOTED. CALL LIGHT WITHIN REACH.
[2020-03-31] MEDS: ENOXAPARIN 40 MG/0.4 ML SYR SUBQ SCH (09:18)
--- NOTE | 2020-03-31 12:30 | NUR ---
BLOOD GLUCOSE CHECKED. BS 276 AND INSULIN HUMALOG 6 UNITS GIVEN. PATIENT SITTING AT THE BEDSIDE QUIETLY. NO DISTRESS NOTED.
[2020-03-31 12:35] VITALS: BP 136/76
[2020-03-31] MEDS ORDERED: PRED20TA5 PO (13:10)
[2020-03-31] MEDS ORDERED: AZIT250T3 PO (13:18)
--- NOTE | 2020-03-31 14:10 | NUR ---
PATIENT IS FOR DISCHARGE TO HOME VIA PRIVATE VEHICLE. DISCHARGE INSTRUCTIONS GIVEN AND BELONGINGS GIVEN. PT VERBALIZED UNDERSTANDING. IV REMOVED AND ID BAND REMOVED. PATIENT IN STABLE CONDITION.
[2020-04-01] MEDS ORDERED: methylPREDNISolone SS 40 MG/ML VIAL IVP SCH (09:00)
== END 2020-03-31 14:15 | disposition home or self-care (01) | DRG 133 ==
LOC: EEVIPCON 08:54 → MED 08:54 → MTU 11:40
PROVIDERS: ADMIT General Practice; ATTEND General Practice
DX: J96.00 Acute respiratory failure, unspecified whether with hypoxia or hypercapnia (principal); D68.59 Other primary thrombophilia; I48.91 Unspecified atrial fibrillation; E11.65 Type 2 diabetes mellitus with hyperglycemia; E87.5 Hyperkalemia; R65.10 Systemic inflammatory response syndrome (SIRS) of non-infectious origin without acute organ dysfunction; J44.1 Chronic obstructive pulmonary disease with (acute) exacerbation; F17.200 Nicotine dependence, unspecified, uncomplicated; K21.9 Gastro-esophageal reflux disease without esophagitis; F41.9 Anxiety disorder, unspecified; M81.0 Age-related osteoporosis without current pathological fracture; E11.9 Type 2 diabetes mellitus without complications; I10 Essential (primary) hypertension; Z88.1 Allergy status to other antibiotic agents; Z88.0 Allergy status to penicillin; Z88.8 Allergy status to other drugs, medicaments and biological substances; Z79.4 Long term (current) use of insulin; Z79.82 Long term (current) use of aspirin; Z79.84 Long term (current) use of oral hypoglycemic drugs; Z86.711 Personal history of pulmonary embolism; Z91.14 Patient's other noncompliance with medication regimen; Z90.49 Acquired absence of other specified parts of digestive tract; Z03.818 Encounter for observation for suspected exposure to other biological agents ruled out; Z86.718 Personal history of other venous thrombosis and embolism; Z79.01 Long term (current) use of anticoagulants
CPT/HCPCS: 36415; 71045; 80048; 80053; 80305; 81003; 82728; 82948; 83036; 83615; 83690; 83735; 83880; 84100; 84443; 84484; 85025; 85379; 85610; 85651; 85730; 86140; 87081; 93005; 94640; 96366; 96367; 96375; 99285; J0456; J1650; J1815; J2270; J2920; J2930; J3475; J7030; J7613; J7626; J7644; Q0092; U0003-CS

== ENCOUNTER 2020-06-09 13:06 | Emergency (ER) | payer OTHER, SELFPAY ==
[~2020-06-09] VITALS: Ht 167.6 cm; Wt 63.5 kg
[~2020-06-09 13:06] MED LIST changes: -AZIT250T11 PO; -PRED10TA5 PO; +PRED20TA5 PO; +ZOLP5TAB1 PO
[2020-06-09 13:10] VITALS: BP 121/65
[2020-06-09] MEDS ORDERED: NACL 0.9% 1,000 ML IV ONE (13:15)
--- NOTE | 2020-06-09 13:18 | NUR ---
TAKEN TO BED 8
--- NOTE | 2020-06-09 13:20 | NUR ---
Pt c/o sob, cough, chest discomfort, and increased blood sugar x today. Audible wheezing noted .Pt aox 4 , afibrile , ambulatory with steady gait , sce , wheezes blf, flat soft abdomen. medhx: COPD, asthma, Afib, DM
--- NOTE | 2020-06-09 13:20 | NUR ---
dr frazier at bedside evlauting pt.
[2020-06-09] MEDS ORDERED: ALBUTEROL SULFATE/IPRATROPIU 3 ML SOL IH ONE (13:25)
[2020-06-09] MEDS ORDERED: predniSONE 20 MG TAB PO ONE (13:25)
[2020-06-09] MEDS ORDERED: MORPHINE SULFATE 4 MG/ML SYR IVP ONE (13:25)
[2020-06-09] MEDS ORDERED: ALBUTEROL 0.083% 2.5 MG/3 ML NEBU INH ONE (13:25)
[2020-06-09 13:50] LABS: BASOPHILS # (AUTO) 0.1 K/uL (0.00-0.22); BASOPHILS % (AUTO) 0.6 % (0.0-2.0); EOSINOPHILS % (AUTO) 0.3 % (0.0-4.0); HEMATOCRIT 43.5 % (36-48); HEMOGLOBIN 14.2 g/dL (12.0-16.0); LYMPHOCYTES % (AUTO) 19.3 % (20.5-51.1); MEAN CORPUSCULAR HEMOGLOBIN 30 pg (27-31); MEAN CORPUSCULAR HGB CONC 33 g/dL (33-37); MEAN CORPUSCULAR VOLUME 92.3 fL (80-94); MONOCYTES # (AUTO) 0.4 K/uL (0.8-1.0); MONOCYTES % (AUTO) 4.3 % (1.7-9.3); NEUTROPHILS # (AUTO) 7.6 K/uL (1.8-7.7); NEUTROPHILS % (AUTO) 75.5 % (42.2-75.2); PLATELET COUNT (AUTO) 338 K/uL (140-450); RED BLOOD CELL COUNT(AUTO) 4.71 MIL/uL (4.20-5.40); RED CELL DISTRIBUTION WIDTH 16.3 % (11.6-13.7); WHITE BLOOD COUNT (AUTO) 10.1 K/uL (4.8-10.8)
--- NOTE | 2020-06-09 13:50 | NUR ---
emt at bedside doin ekg.
[2020-06-09 14:06] LABS: ALBUMIN 3.8 g/dL (3.4-5.0); ANION GAP 16.1 (8-16); CARBON DIOXIDE 25.1 mmol/L (21-32); POTASSIUM 4.2 mmol/L (3.5-5.1); TOTAL BILIRUBIN 0.3 mg/dL (0.0-1.0)
[2020-06-09 14:12] LABS: APPEARANCE,URINE HAZY (CLEAR); COLOR,URINE YELLOW (YELLOW); PH,URINE 5.5 (5.0-9.0)
[2020-06-09 14:13] LABS: BLOOD, URINE 1+ (NEGATIVE); UGLUCOSE 3+ (NEGATIVE)
[2020-06-09 14:15] LABS: BILIRUBIN,URINE NEGATIVE (NEGATIVE); LEUKOCYTE ESTERASE ,URINE NEGATIVE (NEGATIVE); NITRITE, URINE NEGATIVE (NEGATIVE)
[2020-06-09] MEDS ORDERED: INSULIN REGULAR, HUMAN 100 UNIT/ML VIAL IVP ONE (14:15)
--- NOTE | 2020-06-09 14:16 | NUR ---
dr frazier at bedside reevaluating pt.
[2020-06-09 14:18] LABS: RBC,URINE 11-20 (MOD) /HPF (0-5); WBC,URINE 0-5 /HPF (0-5)
[2020-06-09 14:50] VITALS: BP 136/65
--- NOTE | 2020-06-09 14:51 | NUR ---
Patient discharged with v/s stable. Written and verbal after care instructions given and explained regarding cough . Patient alert, oriented and verbalized understanding of instructions. Ambulatory with steady gait. All questions addressed prior to discharge. ID band removed. Patient advised to follow up with PMD. Rx of motrin ,prednisone and norco given. Patient educated on indication of medication including possible reaction and side effects. Opportunity to ask questions provided and answered.
== END 2020-06-09 14:51 | disposition home or self-care (01) ==
LOC: MED 13:06
DX: R07.9 Chest pain, unspecified (principal); R05 Cough; R06.02 Shortness of breath; J44.9 Chronic obstructive pulmonary disease, unspecified; K21.9 Gastro-esophageal reflux disease without esophagitis; I11.0 Hypertensive heart disease with heart failure; Z79.899 Other long term (current) drug therapy; Z88.0 Allergy status to penicillin; Z88.5 Allergy status to narcotic agent; Z88.8 Allergy status to other drugs, medicaments and biological substances
CPT/HCPCS: 36415; 71045; 80053; 81001; 83880; 84484; 85025; 93005; 94640; 96361; 96374; 96375; 99285; J1815; J2270; J7030; J7512; J7613; Q0092

== ENCOUNTER 2020-08-02 08:14 | Emergency (ER) | payer OTHER, SELFPAY ==
[~2020-08-02] VITALS: Ht 167.6 cm; Wt 66.2 kg
[2020-08-02 08:25] VITALS: BP 140/90
--- NOTE | 2020-08-02 08:30 | NUR ---
.PT HOOK TO MANAGEMENT ASSOCIATE WITH STABLE VS, O2 SATURATION AT 98 PERCINT
--- NOTE | 2020-08-02 08:30 | NUR ---
PT C/O SOB, WHEEZINGS, COUGH WITH WHITE PHLEGM, DINORAH CHEST PAIN RADIATING TO THE MID BACK FOR 4 DAYS. DENIES FEVER, OR SICK CONTACT. REPORTS USED ATROVENT AND ALBUTEROL INHALER TODAY.PT AOX4 , AFIBRILE , AMBULATORY WITH STEADY GAIT, PINK PALPEBRAL CONJUNCTIVA , ANICTERIC SCLERA , SCE , NO LABORED BREATHING , FLAT SOFT ABDOMEN. PMH: DM, ASTHMA, COPD, PE, DVTX2
--- NOTE | 2020-08-02 08:32 | NUR ---
dr sapp at bedside evaluating pt.
[2020-08-02] MEDS ORDERED: ACETAMINOPHEN 325 MG TAB PO ONE (08:35)
[2020-08-02] MEDS ORDERED: ALBUTEROL 0.083% 2.5 MG/3 ML NEBU INH ONE ×2 (08:35→10:25)
[2020-08-02] MEDS ORDERED: IPRATROPIUM 0.02% 0.5 MG/2.5 ML NEBU INH ONE (08:35)
[2020-08-02] MEDS ORDERED: predniSONE 20 MG TAB PO ONE (08:40)
--- NOTE | 2020-08-02 08:43 | NUR ---
XRAY AT BEDSIDE.
--- NOTE | 2020-08-02 08:44 | NUR ---
RT AT BEDSIDE DOIN BREATHING TX.
--- NOTE | 2020-08-02 09:05 | NUR ---
EMT AT BEDSIDE DOIN EKG.
--- NOTE | 2020-08-02 09:25 | NUR ---
VERBAL ORDER READ BACK DR MARY JO CAMARGO IV LEFT AC GAUGE 20. Addendum: 08/02/20 at 1008 by MEDAD verbal order read back to dr sapp rt iv gauge 20.
[2020-08-02] MEDS ORDERED: HYDROcodone/APAP 5/325 MG 1 TAB TAB PO ONE (09:30)
[2020-08-02 09:37] LABS: BASOPHILS # (AUTO) 0.1 K/uL (0.00-0.22); BASOPHILS % (AUTO) 0.7 % (0.0-2.0); EOSINOPHILS % (AUTO) 0.1 % (0.0-4.0); HEMATOCRIT 43.6 % (36-48); HEMOGLOBIN 14.4 g/dL (12.0-16.0); LYMPHOCYTES # (AUTO) 1.3 K/uL (2.5-16.5); LYMPHOCYTES % (AUTO) 16.9 % (20.5-51.1); MEAN CORPUSCULAR HEMOGLOBIN 31 pg (27-31); MEAN CORPUSCULAR HGB CONC 33 g/dL (33-37); MEAN CORPUSCULAR VOLUME 92.7 fL (80-94); MONOCYTES # (AUTO) 0.2 K/uL (0.8-1.0); MONOCYTES % (AUTO) 2.6 % (1.7-9.3); NEUTROPHILS # (AUTO) 6.2 K/uL (1.8-7.7); NEUTROPHILS % (AUTO) 79.7 % (42.2-75.2); PLATELET COUNT (AUTO) 323 K/uL (140-450); RED BLOOD CELL COUNT(AUTO) 4.71 MIL/uL (4.20-5.40); WHITE BLOOD COUNT (AUTO) 7.8 K/uL (4.8-10.8)
[2020-08-02 09:53] LABS: ALBUMIN 3.7 g/dL (3.4-5.0); ANION GAP 13.8 (8-16); CARBON DIOXIDE 26.4 mmol/L (21-32); POTASSIUM 4.2 mmol/L (3.5-5.1); TOTAL BILIRUBIN 0.3 mg/dL (0.0-1.0)
--- NOTE | 2020-08-02 09:59 | NUR ---
Glucose 483-- critical value received from lab. Dr Perez made aware
--- NOTE | 2020-08-02 10:17 | NUR ---
dr sapp at bedside reevaluating pt .
[2020-08-02] MEDS ORDERED: INSULIN REGULAR, HUMAN 100 UNIT/ML VIAL SUBQ ONE ×2 (10:20→11:30)
--- NOTE | 2020-08-02 10:29 | NUR ---
rt at bedside
--- NOTE | 2020-08-02 11:08 | NUR ---
PT COMFORTBLE IN BED SIDE RAIL UP X1 AND LOCK AT LOWEST POSITION AND LOCK.
[2020-08-02] MEDS ORDERED: NACL 0.9% 500 ML IV ONE (11:30)
--- NOTE | 2020-08-02 12:39 | NUR ---
dr sapp at bedside reevaluating pt.
[2020-08-02 12:48] VITALS: BP 108/66
--- NOTE | 2020-08-02 12:49 | NUR ---
Patient discharged with v/s stable. Written and verbal after care instructions given and explained regarding COPD . Patient alert, oriented and verbalized understanding of instructions. Ambulatory with steady gait. All questions addressed prior to discharge. ID band removed. Patient advised to follow up with PMD. Rx of azithromycin and prednisone given. Patient educated on indication of medication including possible reaction and side effects. Opportunity to ask questions provided and answered.
== END 2020-08-02 12:49 | disposition home or self-care (01) ==
LOC: MED 08:14
DX: J44.1 Chronic obstructive pulmonary disease with (acute) exacerbation (principal); R06.02 Shortness of breath; R73.9 Hyperglycemia, unspecified; E11.9 Type 2 diabetes mellitus without complications; I10 Essential (primary) hypertension; J45.909 Unspecified asthma, uncomplicated; K21.9 Gastro-esophageal reflux disease without esophagitis; Z88.0 Allergy status to penicillin; Z88.8 Allergy status to other drugs, medicaments and biological substances; Z88.1 Allergy status to other antibiotic agents; Z79.899 Other long term (current) drug therapy
CPT/HCPCS: 36415; 71045; 80053; 81002; 83880; 84484; 85025; 93005; 94640; 94644; 96365; 96372; 99291; J1815; J7030; J7512; J7613; J7644; Q0092

== ENCOUNTER 2020-12-27 12:04 | Emergency (ER) | payer OTHER ==
[~2020-12-27] VITALS: Ht 157.5 cm; Wt 69.9 kg
[~2020-12-27 12:04] MED LIST changes: +APIX2.5 PO; -ASPI-1822 PO; -AZIT250T3 PO; -BENZ-196 PO; +DILT-135 PO; -NICO1PAT15 TD; -[UNRECOGNIZED DRUG - CODE] PO
[2020-12-27 12:15] VITALS: BP 140/78
[2020-12-27] MEDS ORDERED: MORPHINE SULFATE 4 MG/ML SYR IVP ONE (13:20)
[2020-12-27] MEDS ORDERED: ONDANSETRON 4 MG/2 ML VIAL IVP ONE (13:20)
[2020-12-27 13:22] LABS: BASOPHILS # (AUTO) 0.1 K/uL (0.00-0.22); BASOPHILS % (AUTO) 1.3 % (0.0-2.0); EOSINOPHILS # (AUTO) 0.2 K/uL (0-0.4); EOSINOPHILS % (AUTO) 2.5 % (0.0-4.0); HEMATOCRIT 39.7 % (36-48); HEMOGLOBIN 13.1 g/dL (12.0-16.0); LYMPHOCYTES # (AUTO) 1.6 K/uL (2.5-16.5); LYMPHOCYTES % (AUTO) 21.2 % (20.5-51.1); MEAN CORPUSCULAR HEMOGLOBIN 31 pg (27-31); MEAN CORPUSCULAR HGB CONC 33 g/dL (33-37); MEAN CORPUSCULAR VOLUME 93.7 fL (80-94); MONOCYTES # (AUTO) 0.4 K/uL (0.8-1.0); MONOCYTES % (AUTO) 4.7 % (1.7-9.3); NEUTROPHILS # (AUTO) 5.2 K/uL (1.8-7.7); NEUTROPHILS % (AUTO) 70.3 % (42.2-75.2); PLATELET COUNT (AUTO) 300 K/uL (140-450); RED BLOOD CELL COUNT(AUTO) 4.23 MIL/uL (4.20-5.40); RED CELL DISTRIBUTION WIDTH 15.2 % (11.6-13.7); WHITE BLOOD COUNT (AUTO) 7.4 K/uL (4.8-10.8)
[2020-12-27 13:47] LABS: ANION GAP 11.4 (8-16); CARBON DIOXIDE 28.6 mmol/L (21-32); CREATININE 0.8 mg/dL (0.6-1.3)
[2020-12-27 13:53] LABS: ALBUMIN 3.4 g/dL (3.4-5.0); MAGNESIUM 1.6 mg/dL (1.8-2.4); PHOSPHORUS 3.6 mg/dL (2.5-4.9); TOTAL BILIRUBIN 0.1 mg/dL (0.0-1.0)
[2020-12-27] MEDS ORDERED: ONDA-24 SL (15:14)
[2020-12-27] MEDS ORDERED: ACET-8386 PO ×2 (15:14→15:18)
[2020-12-27 15:21] LABS: APPEARANCE,URINE CLEAR (CLEAR); BILIRUBIN,URINE NEGATIVE (NEGATIVE); BLOOD, URINE TRACE-I (NEGATIVE); COLOR,URINE YELLOW (YELLOW); LEUKOCYTE ESTERASE ,URINE NEGATIVE (NEGATIVE); NITRITE, URINE NEGATIVE (NEGATIVE); PH,URINE 5.5 (5.0-9.0); UGLUCOSE 3+ (NEGATIVE)
[2020-12-27 15:30] VITALS: BP 101/42
[2020-12-27 15:51] LABS: WBC,URINE 0-5 /HPF (0-5)
== END 2020-12-27 15:30 | disposition home or self-care (01) ==
LOC: MED 12:04
DX: K80.20 Calculus of gallbladder without cholecystitis without obstruction (principal); E11.9 Type 2 diabetes mellitus without complications; Z88.0 Allergy status to penicillin; Z88.1 Allergy status to other antibiotic agents; Z88.8 Allergy status to other drugs, medicaments and biological substances; J44.9 Chronic obstructive pulmonary disease, unspecified; Z79.4 Long term (current) use of insulin; Z79.899 Other long term (current) drug therapy
CPT/HCPCS: 36415; 71045; 76705; 80048; 80076; 81001; 83690; 83735; 84100; 84484; 85025; 93005; 96374; 96375; 99285; J2270; J2405

== ENCOUNTER 2021-01-03 18:55 | Emergency (ER) | payer OTHER ==
[~2021-01-03] VITALS: Ht 157.5 cm; Wt 65.8 kg
[~2021-01-03 18:55] MED LIST changes: +ACET-8386 PO; +ONDA-24 SL
[2021-01-03 19:09] VITALS: BP 145/99
--- NOTE | 2021-01-03 19:10 | NUR ---
TO BED AMBULATORY
[2021-01-03] MEDS ORDERED: ALBUTEROL HFA MDI 90 MCG/ACTUATION 8 GM INH ONE (19:20)
--- NOTE | 2021-01-03 19:25 | NUR ---
65 Y/O F PATIENT PRESENTS TO ED WITH ABD PAIN THAT STARTED 12/25/20 10/10 SHARP PAIN. . PT STATES SINCE BEING DX FROM [place] ON THE , PT HAS BEEN HAVING INCREASED ABD PAIN. WAS TOLD BY PRIMARY IF PAIN WORSENS, TO COME TO ER AND REQUEST SURGERY. . DENIES N/V/D; SKIN IS PINK/WARM/DRY; AAOX4 WITH EVEN AND STEADY GAIT; LUNGS WHEEZING, CRACKLES HEARD BILATERAL WITH CHEST PAIN. PT IS ON O2 MONITOR STAT ON RA 95%; HR EVEN AND REGULAR; PATIENT STATES PAIN OF 10/10 AT THIS TIME; VSS; PATIENT POSITIONED FOR COMFORT; HOB ELEVATED; BEDRAILS UP X2; BED DOWN. ER MD MADE AWARE OF PT STATUS. PT WAS GIVEN URODIOL BY PRIMARY TO HELP WITH STONES. WNL. ALLERGY TO PENICILLINS AND BENADRYL. PMH: DM2 COPD, ASTHMA AND AFIB.
--- NOTE | 2021-01-03 19:35 | NUR ---
LAB AT BEDSIDE.
[2021-01-03 19:38] LABS: BASOPHILS # (AUTO) 0.1 K/uL (0.00-0.22); BASOPHILS % (AUTO) 1.6 % (0.0-2.0); EOSINOPHILS # (AUTO) 0.2 K/uL (0-0.4); HEMATOCRIT 38.3 % (36-48); HEMOGLOBIN 12.4 g/dL (12.0-16.0); LYMPHOCYTES # (AUTO) 1.7 K/uL (2.5-16.5); LYMPHOCYTES % (AUTO) 27.1 % (20.5-51.1); MEAN CORPUSCULAR HEMOGLOBIN 30 pg (27-31); MEAN CORPUSCULAR HGB CONC 32 g/dL (33-37); MEAN CORPUSCULAR VOLUME 94.1 fL (80-94); MONOCYTES # (AUTO) 0.3 K/uL (0.8-1.0); NEUTROPHILS % (AUTO) 63.3 % (42.2-75.2); PLATELET COUNT (AUTO) 311 K/uL (140-450); RED BLOOD CELL COUNT(AUTO) 4.07 MIL/uL (4.20-5.40); RED CELL DISTRIBUTION WIDTH 15.1 % (11.6-13.7); WHITE BLOOD COUNT (AUTO) 6.3 K/uL (4.8-10.8)
[2021-01-03] MEDS ORDERED: ALBUTEROL 0.083% 2.5 MG/3 ML NEBU INH ONE (19:40)
[2021-01-03 20:09] LABS: ALBUMIN 3.2 g/dL (3.4-5.0); ANION GAP 10.2 (8-16); CARBON DIOXIDE 28.6 mmol/L (21-32); CREATININE 0.9 mg/dL (0.6-1.3); POTASSIUM 4.8 mmol/L (3.5-5.1); TOTAL BILIRUBIN 0.2 mg/dL (0.0-1.0)
[2021-01-03] MEDS ORDERED: MORPHINE SULFATE 4 MG/ML SYR IVP ONE (20:45)
[2021-01-03] MEDS ORDERED: ONDANSETRON 4 MG/2 ML VIAL IVP ONE (20:45)
[2021-01-03] MEDS ORDERED: INSULIN REGULAR, HUMAN 100 UNIT/ML VIAL IVP ONE (21:35)
--- NOTE | 2021-01-03 21:35 | NUR ---
Dennys ko in ED - 01/03/21 at 2137 by MEDPMR PT STATED SHE WAS NOT ALLERGIC TO DIPHENHYDRAMINE/BENADRYL.
[2021-01-03] MEDS ORDERED: ACET-8386 PO (22:06)
[2021-01-03] MEDS ORDERED: ONDA4TAB PO (22:06)
[2021-01-03 22:36] VITALS: BP 145/99
--- NOTE | 2021-01-03 22:37 | NUR ---
Patient discharged with v/s stable. Written and verbal after care instructions given and explained. Patient alert, oriented and verbalized understanding of instructions. Ambulatory with steady gait. All questions addressed prior to discharge. ID band removed. Patient advised to follow up with PMD. Rx of ZOFRAN,HYDROCODONE/ACETAMINOHPEN given. Patient educated on indication of medication including possible reaction and side effects. Opportunity to ask questions provided and answered.
[2021-01-03] MEDS ORDERED: HYDROcodone/APAP 5/325 MG 1 TAB TAB PO ONE (22:40)
[2021-01-03 23:10] LABS: APPEARANCE,URINE CLEAR (CLEAR); BILIRUBIN,URINE NEGATIVE (NEGATIVE); BLOOD, URINE TRACE-I (NEGATIVE); COLOR,URINE YELLOW (YELLOW); LEUKOCYTE ESTERASE ,URINE NEGATIVE (NEGATIVE); NITRITE, URINE NEGATIVE (NEGATIVE); PH,URINE 5.5 (5.0-9.0); UGLUCOSE 3+ (NEGATIVE)
[2021-01-03 23:13] LABS: RBC,URINE 0-5 /HPF (0-5); WBC,URINE 0-5 /HPF (0-5)
== END 2021-01-03 22:37 | disposition home or self-care (01) ==
LOC: MED 18:55
DX: K80.70 Calculus of gallbladder and bile duct without cholecystitis without obstruction (principal); J44.9 Chronic obstructive pulmonary disease, unspecified; E11.9 Type 2 diabetes mellitus without complications; Z79.4 Long term (current) use of insulin; Z79.899 Other long term (current) drug therapy; Z88.0 Allergy status to penicillin; Z88.1 Allergy status to other antibiotic agents; Z88.8 Allergy status to other drugs, medicaments and biological substances
CPT/HCPCS: 36415; 71045; 74176; 80053; 81001; 83690; 85025; 96374; 96375; 99285; J1815; J2270; J2405; J7613

== ENCOUNTER 2021-01-12 11:59 | Emergency (ER) | payer OTHER ==
[~2021-01-12] VITALS: Ht 157.5 cm; Wt 65.8 kg
[~2021-01-12 11:59] MED LIST changes: +ONDA4TAB PO
[2021-01-12 12:06] VITALS: BP 134/91
[2021-01-12] MEDS ORDERED: ALBUTEROL 0.083% 2.5 MG/3 ML NEBU INH ONE ×2 (12:15→13:00)
[2021-01-12] MEDS ORDERED: ALBUTEROL SULFATE/IPRATROPIU 3 ML SOL IH ONE ×2 (12:15→13:00)
[2021-01-12] MEDS ORDERED: predniSONE 20 MG TAB PO ONE (12:15)
--- NOTE | 2021-01-12 12:23 | NUR ---
65 Y/O FEMALE BIB SELF C/O SOB X TODAY AND COUGH X MULTIPLE WEEKS. SPO2 98%RA, RR 35, BREATHING LABORED. WHEEZES HEARD THROUGHOUT LUNGS. SYMMETRICAL CHEST EXPANSION. PRODUCTIVE COUGH PRESENT; CLEAR PHLEGM. PT ON MONITOR. AO4, SKIN AND DRY. BED IN LOWEST POSITION, LOCKED, X1 SIDERAIL UP. PMH - DM2, ASTHMA, COPD, AFIB ALLERGIES - PENICILLINS
[2021-01-12] MEDS ORDERED: KETOROLAC 60 MG/2 ML VIAL IM ONE (12:25)
--- NOTE | 2021-01-12 12:25 | NUR ---
RT AT BEDSIDE PROVIDING BREATHING TX
[2021-01-12] MEDS ORDERED: MORPHINE SULFATE 4 MG/ML SYR IM ONE (13:30)
[2021-01-12] MEDS ORDERED: PRED20TA5 PO (13:37)
[2021-01-12] MEDS ORDERED: ATRMDI INH (13:37)
[2021-01-12] MEDS ORDERED: PRON INH (13:37)
[2021-01-12] MEDS ORDERED: ALBU0.0912 IH (13:37)
[2021-01-12] MEDS ORDERED: ACET-8386 PO (13:37)
[2021-01-12 13:54] VITALS: BP 134/91
--- NOTE | 2021-01-12 13:55 | NUR ---
Patient discharged with v/s stable. Written and verbal after care instructions ABOUT COPD AND SOB given and explained. Patient alert, oriented and verbalized understanding of instructions. Ambulatory with steady gait. All questions addressed prior to discharge. ID band removed. Patient advised to follow up with PMD. Rx of HYDROCODONE/ACETAMINOPHEN, ALBUTEROL SULFATE HFA, ALBUTEROL SULFATE MICAELA, IPRATROPIUM, AND PREDNISONE given. Patient educated on indication of medication including possible reaction and side effects. Opportunity to ask questions provided and answered.
== END 2021-01-12 13:55 | disposition home or self-care (01) ==
LOC: MED 11:59
DX: J44.1 Chronic obstructive pulmonary disease with (acute) exacerbation (principal); E11.9 Type 2 diabetes mellitus without complications; F17.210 Nicotine dependence, cigarettes, uncomplicated; Z88.0 Allergy status to penicillin; Z88.8 Allergy status to other drugs, medicaments and biological substances; Z88.6 Allergy status to analgesic agent
CPT/HCPCS: 71045; 94640; 96372; 99284; J1885; J2270; J7512; J7613

== ENCOUNTER 2021-01-28 13:07 | Emergency (ER) | payer OTHER ==
[~2021-01-28] VITALS: Ht 157.5 cm; Wt 65.3 kg
[~2021-01-28 13:07] MED LIST changes: +PRON INH
[2021-01-28 13:10] VITALS: BP 132/72
--- NOTE | 2021-01-28 13:11 | NUR ---
65 Y F C/C lower sharp constant 9/10 back pain that shoots down bilateral extremeties. C/O pain exacerberated by bending leg and walking. Denies chest pain, SOB, palpitations, paresthesia. SurHx: Gallstones removed last month PMH: Anxiety, blood clots, COPD, asthma, plursey, osteoporsis, DM2, bilateral lower extremity diabetic neuropathy, neck pain, HTN. RX: Ventolin HFA [place], Fluticasone, Montelukast, Pantropazole, metformin, aspirin, hydrocodone, setraline, prednisone, theophylline, lorazaepam, zolpidem, albuterol sulfate, atorvent, lantus.
--- NOTE | 2021-01-28 13:30 | NUR ---
ERMD evaluating pt at bedside.
[2021-01-28] MEDS ORDERED: MORPHINE SULFATE 4 MG/ML SYR IM ONE (13:40)
[2021-01-28] MEDS ORDERED: LIDOCAINE 5% 1 EA PATCH TP SCH (13:40)
--- NOTE | 2021-01-28 13:44 | NUR ---
PT WHEELED TO X-RAY.
--- NOTE | 2021-01-28 13:52 | NUR ---
CALLED PHARMACY FOR LIDO PATCH, STATED SHE WILL SEND PATCH OVER.
[2021-01-28] MEDS ORDERED: CYCL-654 PO (14:15)
[2021-01-28] MEDS ORDERED: DICL1GEL19 TP (14:15)
[2021-01-28 14:35] VITALS: BP 132/72
--- NOTE | 2021-01-28 14:36 | NUR ---
Patient discharged with v/s stable. Written and verbal after care instructions given and explained. Patient alert, oriented and verbalized understanding of instructions. Ambulatory with steady gait. All questions addressed prior to discharge. ID band removed. Patient advised to follow up with PMD. Rx of FLEXERIL AND VOLATAREN given. Patient educated on indication of medication including possible reaction and side effects. Opportunity to ask questions provided and answered.
== END 2021-01-28 14:36 | disposition home or self-care (01) ==
LOC: MED 13:07
DX: M54.5 Low back pain (principal); J44.9 Chronic obstructive pulmonary disease, unspecified; E11.9 Type 2 diabetes mellitus without complications; F17.210 Nicotine dependence, cigarettes, uncomplicated; Z88.0 Allergy status to penicillin; Z88.1 Allergy status to other antibiotic agents; Z88.8 Allergy status to other drugs, medicaments and biological substances
CPT/HCPCS: 72170; 96372; 99283; J2270

== ENCOUNTER 2021-01-29 08:49 | Emergency (ER) | payer OTHER ==
[~2021-01-29] VITALS: Ht 157.5 cm; Wt 63.5 kg
[~2021-01-29 08:49] MED LIST changes: +CYCL-654 PO; +DICL1GEL19 TP
[2021-01-29 08:55] VITALS: BP 141/64
--- NOTE | 2021-01-29 09:02 | NUR ---
PT WAS ABLE TO AMBULATE TO BE @ 0927
--- NOTE | 2021-01-29 09:05 | NUR ---
Pt being seen for lower back pain. Upon assessment, audible wheezing noted. Per pt, "I am not concerned about my breathing, I can deal with that. I am more concerned about my back." made aware of pt respiratory status. O2 saturation 98% on RA.
--- NOTE | 2021-01-29 09:06 | NUR ---
65f BIB self c/c lower back pain, she was seen at the ER yesterday and was told to come back, she reports pain has worsen 9.5/10 stabbing pain that shoots down to both legs bilaterally. Pt denies loss of bowel and bladder and reports sensation in her inner thighs bilaterally. CMS+, pt reports chronic diabetic neuropathy so any addtionally tingling or pins and needles would not be noticed to onset of back pain. Pt reports walking/ bending her legs makes the pain worse. PMH: asthma, COPD, DM, Osteoporosis, GERD ALLHX: penicillin, unasyn, Doxylamine, sulbactam
[2021-01-29] MEDS ORDERED: DEXAMETHASONE 10 MG/ML VIAL IVP ONE (10:00)
[2021-01-29] MEDS ORDERED: ALBUTEROL SULFATE/IPRATROPIU 3 ML SOL IH ONE (10:00)
[2021-01-29] MEDS ORDERED: HYDROmorphone PFS 2 MG/ML SYR IM ONE (10:00)
--- NOTE | 2021-01-29 10:05 | NUR ---
lab at bedside
--- NOTE | 2021-01-29 10:32 | NUR ---
bladder scan performed per doctor request, 488ml pre void measured.
[2021-01-29] MEDS ORDERED: HYDROmorphone PFS 2 MG/ML SYR IVP ONE ×2 (10:35→12:05)
[2021-01-29 10:38] LABS: BASOPHILS % (AUTO) 0.6 % (0.0-2.0); EOSINOPHILS # (AUTO) 0.1 K/uL (0-0.4); EOSINOPHILS % (AUTO) 0.8 % (0.0-4.0); HEMATOCRIT 40.3 % (36-48); HEMOGLOBIN 13.2 g/dL (12.0-16.0); LYMPHOCYTES % (AUTO) 13.4 % (20.5-51.1); MEAN CORPUSCULAR HEMOGLOBIN 31 pg (27-31); MEAN CORPUSCULAR HGB CONC 33 g/dL (33-37); MEAN CORPUSCULAR VOLUME 93.9 fL (80-94); MONOCYTES # (AUTO) 0.2 K/uL (0.8-1.0); MONOCYTES % (AUTO) 2.7 % (1.7-9.3); NEUTROPHILS % (AUTO) 82.5 % (42.2-75.2); PLATELET COUNT (AUTO) 375 K/uL (140-450); RED BLOOD CELL COUNT(AUTO) 4.29 MIL/uL (4.20-5.40); RED CELL DISTRIBUTION WIDTH 15.1 % (11.6-13.7); WHITE BLOOD COUNT (AUTO) 7.3 K/uL (4.8-10.8)
[2021-01-29 10:47] LABS: BILIRUBIN,URINE NEGATIVE (NEGATIVE); BLOOD, URINE TRACE-L (NEGATIVE); LEUKOCYTE ESTERASE ,URINE TRACE (NEGATIVE); NITRITE, URINE NEGATIVE (NEGATIVE); PH,URINE 5.5 (5.0-9.0); UGLUCOSE NEGATIVE (NEGATIVE)
[2021-01-29 10:53] LABS: ALBUMIN 3.5 g/dL (3.4-5.0); ANION GAP 11.4 (8-16); CARBON DIOXIDE 28.1 mmol/L (21-32); CREATININE 0.6 mg/dL (0.6-1.3); POTASSIUM 4.5 mmol/L (3.5-5.1); TOTAL BILIRUBIN 0.4 mg/dL (0.0-1.0)
--- NOTE | 2021-01-29 10:54 | NUR ---
bladder scan performed per doctor request, 44ml post void measured.
[2021-01-29 10:56] LABS: APPEARANCE,URINE SLIGHTLY HAZY (CLEAR); COLOR,URINE YELLOW (YELLOW)
[2021-01-29 10:58] LABS: RBC,URINE 0-5 /HPF (0-5); URINE AMORPHOUS URATE 1+ /HPF (None Seen); WBC,URINE 0-5 /HPF (0-5)
--- NOTE | 2021-01-29 10:59 | NUR ---
Report and continuation of care received from ADELE Bernabe.
[2021-01-29 11:02] LABS: PROTHROMBIN TIME 9.9 secs (10.8-13.4)
--- NOTE | 2021-01-29 11:10 | NUR ---
Patient presents with both eyes open lying on left side in position of comfort. Patient states minor pain relief after medication; reports 8.5/10 pain at this time. Denies any nausea, shortness of breath. Patient reassured to utilize call light if pain worsens or begins experiencing SOB. monitoring tech remains in place. No obvious distress noted. Bed locked in lowest position, side rails x 1, call light in reach.
--- NOTE | 2021-01-29 12:04 | NUR ---
Dr. Thompson at bedside to explain benefits/risks of transport. Patient verbalized understanding and signature obtained for transport acknowledgement.
--- NOTE | 2021-01-29 12:40 | NUR ---
Patient states relief after medication administration; reports pain /10. Patient presents in position of comfort, respirations even/unlabored at this time. Pt denies any difficulty breathing or nausea. shelter monitor remains in place. Bed locked in lowest position, side rails x 1, call light in reach.
--- NOTE | 2021-01-29 13:05 | NUR ---
Dr. Thompson states OK for pt to eat; ham sandwich provided per pt request. Patient is completing meal at this time.
--- NOTE | 2021-01-29 13:17 | NUR ---
Patient made aware of ETA for ambulance transport.
--- NOTE | 2021-01-29 13:21 | NUR ---
Report given via telephone to ADELE Estrada. Advised of ETA 45 minutes to [facility].
--- NOTE | 2021-01-29 13:22 | NUR ---
Patient to be transferred to [facility]. Is being transferred due to continuation of care - neurosurgery. Receiving facility has accepting physician and available space. ER physician has signed transfer form. Patient or responsible democrat has agreed to transfer and signed form. Patient belongings inventoried and will be sent with patient. Copy of nursing notes, lab reports, EKG, Physicians Orders and X-rays to be sent with patient. Report called to ADELE Estrada at receiving facility. [facility] ambulance service has been called for transfer. ETA is 30 minutes.
[2021-01-29 13:40] VITALS: BP 116/54
--- NOTE | 2021-01-29 13:42 | NUR ---
[facility] at bedside assisting patient from [facility] to [facility].
== END 2021-01-29 13:22 | disposition designated cancer center or children's hospital (05) ==
LOC: MED 08:49
DX: G83.4 Cauda equina syndrome (principal); J44.9 Chronic obstructive pulmonary disease, unspecified; E11.9 Type 2 diabetes mellitus without complications; Z88.0 Allergy status to penicillin; Z88.1 Allergy status to other antibiotic agents; Z79.899 Other long term (current) drug therapy
CPT/HCPCS: 36415; 71045; 80053; 81001; 82550; 84484; 85025; 85610; 85651; 85730; 86140; 87040; 93005; 94640; 96374; 96375; 96376; 99285; J1100; J1170

== ENCOUNTER 2021-02-23 14:41 | Emergency (ER) | payer OTHER ==
[~2021-02-23] VITALS: Ht 157.5 cm; Wt 63.5 kg
[2021-02-23 15:04] VITALS: BP 132/71
--- NOTE | 2021-02-23 15:46 | NUR ---
Pt taken to ER bed 2.
--- NOTE | 2021-02-23 15:52 | NUR ---
66 Y/O FEMALE C/O URINARY BURNING, ABD PAIN /10 DESCRIBES SHARP RADIATING TO LOWER BACK X 4 DAYS AND C/O DIARRHEA X 2 DAYS. BLOOD SUGAR 378 AT THIS TIME. ABDOMEN IS SOFT, ROUND, NON-TENDER TO PALPATION, BOWEL SOUNDS ACTIVE X4. LAST BM 02/23/21. PT DENIES N/V, DENIES FEVER/CHILLS. PMH: ASTHMA, COPD, DM, ANXIETY, A FIB, OSTEOPOROSI, HTN ALLERGIES: PCN, AMPICILLIN, DOXYLAMINE
--- NOTE | 2021-02-23 16:41 | NUR ---
Dr. Bah at pt bedside for further evaluation.
[2021-02-23] MEDS ORDERED: PHENAZOPYRIDINE 100 MG TAB PO ONE (16:50)
[2021-02-23] MEDS ORDERED: ONDANSETRON 4 MG/2 ML VIAL IVP ONE (16:50)
[2021-02-23] MEDS ORDERED: NACL 0.9% 1,000 ML IV ONE (16:50)
[2021-02-23] MEDS ORDERED: MORPHINE SULFATE 4 MG/ML SYR IVP ONE (16:50)
--- NOTE | 2021-02-23 17:12 | NUR ---
Pt resting, HOB elevated, visible equal rise and fall of chest, VSS, will continue to monitor.
[2021-02-23 17:13] LABS: BASOPHILS # (AUTO) 0.1 K/uL (0.00-0.22); BASOPHILS % (AUTO) 0.8 % (0.0-2.0); EOSINOPHILS # (AUTO) 0.2 K/uL (0-0.4); EOSINOPHILS % (AUTO) 1.7 % (0.0-4.0); HEMOGLOBIN 12.9 g/dL (12.0-16.0); LYMPHOCYTES # (AUTO) 2.2 K/uL (2.5-16.5); LYMPHOCYTES % (AUTO) 24.5 % (20.5-51.1); MEAN CORPUSCULAR HEMOGLOBIN 31 pg (27-31); MEAN CORPUSCULAR HGB CONC 33 g/dL (33-37); MEAN CORPUSCULAR VOLUME 92.8 fL (80-94); MONOCYTES # (AUTO) 0.3 K/uL (0.8-1.0); MONOCYTES % (AUTO) 3.4 % (1.7-9.3); NEUTROPHILS # (AUTO) 6.1 K/uL (1.8-7.7); NEUTROPHILS % (AUTO) 69.6 % (42.2-75.2); PLATELET COUNT (AUTO) 297 K/uL (140-450); RED CELL DISTRIBUTION WIDTH 15.6 % (11.6-13.7); WHITE BLOOD COUNT (AUTO) 8.8 K/uL (4.8-10.8)
[2021-02-23 17:31] LABS: ALBUMIN 3.9 g/dL (3.4-5.0); ANION GAP 9.8 (8-16); CARBON DIOXIDE 28.3 mmol/L (21-32); POTASSIUM 4.1 mmol/L (3.5-5.1); TOTAL BILIRUBIN 0.2 mg/dL (0.0-1.0)
[2021-02-23] MEDS ORDERED: cefTRIAXone 1,000 MG VIAL ONE (17:33)
--- NOTE | 2021-02-23 18:42 | NUR ---
Spoke with Estefany in lab for UA sent for urinalysis. made aware.
[2021-02-23 18:51] LABS: APPEARANCE,URINE CLEAR (CLEAR); BILIRUBIN,URINE NEGATIVE (NEGATIVE); BLOOD, URINE TRACE-I (NEGATIVE); COLOR,URINE YELLOW (YELLOW); LEUKOCYTE ESTERASE ,URINE NEGATIVE (NEGATIVE); NITRITE, URINE NEGATIVE (NEGATIVE); PH,URINE 5.5 (5.0-9.0); UGLUCOSE 2+ (NEGATIVE)
--- NOTE | 2021-02-23 18:51 | NUR ---
Pt states pain to suprapubic region radiates to lower back 8/10 describes as sharp, requesting pain medication. made aware.
--- NOTE | 2021-02-23 19:11 | NUR ---
Gave report to ADELE Garcia. Transfer of care at this time.
[2021-02-23] MEDS ORDERED: KETOROLAC 15 MG/ML VIAL IVP ONE (19:20)
--- NOTE | 2021-02-23 19:40 | NUR ---
ADDITIONAL SL ESTABLISHED LEFT A/C. CONSENT SIGNED FOR CT WITH CONTRAST
[2021-02-23 19:41] LABS: RBC,URINE 0-5 /HPF (0-5); WBC,URINE 0-5 /HPF (0-5)
--- NOTE | 2021-02-23 21:00 | NUR ---
PACING AT DOOR. "I'M READY TO GO'STATES RELEF FROM E[facility]LI[facility] PAIN MED
[2021-02-23] MEDS ORDERED: ACET-9525 PO (21:14)
[2021-02-23] MEDS ORDERED: CEPH-588 PO (21:14)
[2021-02-23] MEDS ORDERED: PYR100 PO (21:14)
[2021-02-23 21:20] VITALS: BP 134/72
--- NOTE | 2021-02-23 21:20 | NUR ---
Patient discharged with v/s stable. Written and verbal after care instructions given and explained. Patient alert, oriented and verbalized understanding of instructions. Ambulatory with steady gait. All questions addressed prior to discharge. ID band removed. Patient advised to follow up with PMD. Rx of KEFLEX, PYRIDIUM, HYDROCODONE given. Patient educated on indication of medication including possible reaction and side effects. Opportunity to ask questions provided and answered.
--- NOTE | 2021-02-25 19:50 | NUR ---
LATE ENTRY- 0.9% NS BOLUS DISCONTINUED AT 1930
== END 2021-02-23 21:20 | disposition home or self-care (01) ==
LOC: MED 14:41
DX: N39.0 Urinary tract infection, site not specified (principal); J44.9 Chronic obstructive pulmonary disease, unspecified; I11.9 Hypertensive heart disease without heart failure; E11.9 Type 2 diabetes mellitus without complications; Z79.899 Other long term (current) drug therapy; Z88.0 Allergy status to penicillin; Z88.1 Allergy status to other antibiotic agents
CPT/HCPCS: 36415; 74177; 80053; 81001; 83690; 85025; 87086; 96361; 96365; 96375; 99285; J0696; J1885; J2270; J2405; J7030; J7060; Q9967

== ENCOUNTER 2021-05-07 14:48 | Inpatient (IN) | payer OTHER, SELFPAY ==
[~2021-05-07] VITALS: Ht 157.5 cm; Wt 59.0 kg
[~2021-05-07 14:48] MED LIST changes: +ACET-9525 PO; +CEPH-588 PO; +PYR100 PO
[2021-05-07 15:04] VITALS: BP 143/86
--- NOTE | 2021-05-07 15:22 | NUR ---
Dennys ko in [facility] - 05/07/21 at 1557 by GI EKG being performed at bedside
--- NOTE | 2021-05-07 15:25 | NUR ---
Allergies: Penicillin, Unasyn Med hx: COPD, Diabetes, Blood Clots, GERD, asthma
--- NOTE | 2021-05-07 15:25 | NUR ---
Pt presents to ED c/o abdominal pain radiating to chest/back x1 week. Pain level 8/10, constant. Pt was admitted at [facility] last week and for COPD and ketoacidosis. Pt was discharged on 05/03/21 and called back with x-ray results. According to pt, pt was told that she has a 9mm nodule on right lung. Recommended to obtain a CT. Pt admits to being a current a chronic smoker.
--- NOTE | 2021-05-07 15:29 | NUR ---
MD Bacon evaluating pt at bedside.
[2021-05-07] MEDS ORDERED: ALUMINUM HYD/MAG/SIMETHICONE 30 ML UDC PO ONE (15:30)
--- NOTE | 2021-05-07 15:32 | NUR ---
EKG being performed at bedside
--- NOTE | 2021-05-07 15:41 | NUR ---
Consent form for CT signed
--- NOTE | 2021-05-07 15:50 | NUR ---
20 gauge IV established in R. AC
--- NOTE | 2021-05-07 15:57 | NUR ---
Labs collected and given to phleb
[2021-05-07 16:03] LABS: BASOPHILS % (AUTO) 0.4 % (0.0-2.0); EOSINOPHILS # (AUTO) 0.1 K/uL (0-0.4); EOSINOPHILS % (AUTO) 1.6 % (0.0-4.0); HEMATOCRIT 39.7 % (36-48); HEMOGLOBIN 13.1 g/dL (12.0-16.0); LYMPHOCYTES # (AUTO) 1.6 K/uL (2.5-16.5); LYMPHOCYTES % (AUTO) 20.2 % (20.5-51.1); MEAN CORPUSCULAR HEMOGLOBIN 32 pg (27-31); MEAN CORPUSCULAR HGB CONC 33 g/dL (33-37); MEAN CORPUSCULAR VOLUME 95.7 fL (80-94); MONOCYTES # (AUTO) 0.6 K/uL (0.8-1.0); MONOCYTES % (AUTO) 6.8 % (1.7-9.3); NEUTROPHILS # (AUTO) 5.7 K/uL (1.8-7.7); PLATELET COUNT (AUTO) 326 K/uL (140-450); RED BLOOD CELL COUNT(AUTO) 4.14 MIL/uL (4.20-5.40); RED CELL DISTRIBUTION WIDTH 15.5 % (11.6-13.7); WHITE BLOOD COUNT (AUTO) 8.1 K/uL (4.8-10.8)
[2021-05-07 16:39] LABS: ALBUMIN 3.1 g/dL (3.4-5.0); ANION GAP 9.5 (8-16); CREATININE 0.7 mg/dL (0.6-1.3); POTASSIUM 3.5 mmol/L (3.5-5.1); TOTAL BILIRUBIN 0.2 mg/dL (0.0-1.0)
[2021-05-07] MEDS ORDERED: KETOROLAC 15 MG/ML VIAL IVP ONE (17:10)
--- NOTE | 2021-05-07 17:10 | NUR ---
Pt c/o 05/30 abdominal pain radiating to chest and back. made aware. Awaiting for pt to return from CT to administer medication.
--- NOTE | 2021-05-07 17:10 | NUR ---
[facility]
[2021-05-07] MEDS ORDERED: NAPR-54 PO (17:45)
[2021-05-07] MEDS ORDERED: ALUM355S59 PO (17:45)
[2021-05-07] MEDS ORDERED: FAMO-92 PO (17:45)
[2021-05-07] MEDS ORDERED: ONDANSETRON 4 MG/2 ML VIAL IVP ONE (17:55)
[2021-05-07] MEDS ORDERED: MORPHINE SULFATE 4 MG/ML SYR IVP ONE (17:55)
[2021-05-07] MEDS ORDERED: LOVENOX 1MG/KG Q12H SUBQ SCH ×2 (17:55→18:30)
[2021-05-07] MEDS ORDERED: ENOXAPARIN 60 MG/0.6 ML SYR SUBQ ONE (18:01)
--- NOTE | 2021-05-07 18:05 | NUR ---
Pt updated on plan of care. Pt verbalized understanding.
[2021-05-07] MEDS ORDERED: LORazepam 2 MG/ML VIAL IVP PRN ×2 (18:20)
[2021-05-07] MEDS ORDERED: MORPHINE SULFATE 2 MG/ML SYR IVP PRN (18:20)
[2021-05-07] MEDS ORDERED: ONDANSETRON 4 MG/2 ML VIAL IVP PRN ×2 (18:20)
[2021-05-07] MEDS ORDERED: ACETAMINOPHEN 325 MG TAB PO PRN ×2 (18:20)
[2021-05-07] MEDS ORDERED: HYDROcodone/APAP 5/325 MG 1 TAB TAB PO PRN ×2 (18:20)
[2021-05-07] MEDS ORDERED: ALBUTEROL SULFATE/IPRATROPIU 3 ML SOL IH ONE ×2 (18:49→18:50)
--- NOTE | 2021-05-07 19:00 | NUR ---
Pt requesting water. Pt has regular diet in place.
--- NOTE | 2021-05-07 19:03 | NUR ---
RT at bedside providing breathing tx
--- NOTE | 2021-05-07 19:08 | NUR ---
Report and care endorsed to ADELE Gunderson
--- NOTE | 2021-05-07 19:11 | NUR ---
RECEIVED REPORT FROM KALYANI ANGULO FOR CONTINUITY OF CARE
--- NOTE | 2021-05-07 20:05 | NUR ---
ER NURSE CALLED GAVE REPORT. ADMITTED A 66 Y/O FEMALE VIA GURNEY UNDER THE CARE OF DR. GONZALEZ WITH CC: ABDOMINAL PAIN THAT RADIATES TO CHEST AND BACK. DX: DVT, PE, GERD, COPD, DKA. AWAKE, ALERT ORIENTED X4. NO ACUTE DISTRESS NOTED. RESPIRATION EVEN UNLABORED. MRSA SCREENING DONE. SAFETY MEASURES IN PLACE. ORIENTED TO ROOM, RESTROOM, CALL LIGHT, STAFF. LUNGS CLEAR U[ESTELA AUSCULTATION. BOWEL SOUNDS PRESENT IN ALL 4 QUADRANT. CALL LIGHT WITHIN REACH.
--- NOTE | 2021-05-07 20:11 | NUR ---
Patient will be admitted to care of DR. GONZALEZ. Admited to TELEMETRY. Will go to room 104A. Belongings list completed. Report to SANDRA ANGULO. PT TRANSPORTED BY RN AND EMT. VSS.
--- NOTE | 2021-05-07 22:17 | NUR ---
LOVENOX GIVEN AT 181 AT ER, CALLED ENGLISH LECTURER , SPOKE TO DR ALVAREZ ORDERED LOVENOX EVERY 12 HOURS. Addendum: 05/07/21 at 2229 by Park Yu RN RN SPOKE WITH DR. ALVAREZ AT 2015 REGARDING LOVENOX .
[2021-05-07] MEDS: MORPHINE SULFATE 2 MG/ML SYR IVP PRN (23:01)
[2021-05-08] VITALS: BP 122/69
[2021-05-08] MEDS: MORPHINE SULFATE 2 MG/ML SYR IVP PRN ×5 (03:14→21:00)
[2021-05-08] MEDS ORDERED: ALBUTEROL SULFATE/IPRATROPIU 3 ML SOL IH ONE (03:15)
[2021-05-08 04:00] VITALS: BP 120/67
[2021-05-08 05:38] LABS: BASOPHILS % (AUTO) 0.5 % (0.0-2.0); EOSINOPHILS # (AUTO) 0.2 K/uL (0-0.4); HEMOGLOBIN 11.2 g/dL (12.0-16.0); LYMPHOCYTES # (AUTO) 2.1 K/uL (2.5-16.5); LYMPHOCYTES % (AUTO) 32.5 % (20.5-51.1); MEAN CORPUSCULAR HEMOGLOBIN 31 pg (27-31); MEAN CORPUSCULAR HGB CONC 33 g/dL (33-37); MEAN CORPUSCULAR VOLUME 95.3 fL (80-94); MONOCYTES # (AUTO) 0.7 K/uL (0.8-1.0); MONOCYTES % (AUTO) 10.9 % (1.7-9.3); NEUTROPHILS # (AUTO) 3.4 K/uL (1.8-7.7); NEUTROPHILS % (AUTO) 53.1 % (42.2-75.2); PLATELET COUNT (AUTO) 280 K/uL (140-450); RED BLOOD CELL COUNT(AUTO) 3.57 MIL/uL (4.20-5.40); RED CELL DISTRIBUTION WIDTH 15.5 % (11.6-13.7); WHITE BLOOD COUNT (AUTO) 6.4 K/uL (4.8-10.8)
[2021-05-08 06:12] LABS: ALBUMIN 2.5 g/dL (3.4-5.0); ANION GAP 6.5 (8-16); CREATININE 0.6 mg/dL (0.6-1.3); POTASSIUM 3.5 mmol/L (3.5-5.1); TOTAL BILIRUBIN 0.2 mg/dL (0.0-1.0)
--- NOTE | 2021-05-08 06:32 | NUR ---
LOVENOX GIVEN ORDERED.
[2021-05-08] MEDS: ALBUTEROL SULFATE/IPRATROPIU 3 ML SOL IH SCH ×3 (06:55→19:07)
[2021-05-08] MEDS ORDERED: ENOXAPARIN 60 MG/0.6 ML SYR SUBQ SCH (07:00)
--- NOTE | 2021-05-08 07:15 | NUR ---
ENDORSED TO AM SHIFT NURSE FOR CONTINUITY OF CARE. PT IS STABLE.
--- NOTE | 2021-05-08 07:17 | NUR ---
RECEIVED REPORT FROM NIGHT NURSE PT IS AAOX4, ON ROOM AIR, AMBULATORY, SKIN INTACT, CONTINENT, IV INTACT ON RIGHT AC SALINE LOCK, WITH COUGH, CHEST CT DONE RESULTED TO P.E, EMPHYSEMA, 6MM NODULE ON LEFT UPPER LOBE OF THE LUNGS, RIGHT RENAL CYST, ATHEROSCLEROTIC,CAD. SAFETY MEASURES IN PLACE AND CALL LIGHT WITHIN REACH. WILL CONTINUE TO MONITOR.
[2021-05-08 08:00] VITALS: BP 128/63
[2021-05-08] MEDS: ASPIRIN 81 MG TAB.CHEW PO SCH (08:26)
--- NOTE | 2021-05-08 08:26 | NUR ---
ADMINISTERED SCHEDULED MEDICATION ASPIRIN 81 MG PO AND PT COMPLAINS OF CONSTANT SHARP CHEST PAIN OF 8/10 [id number] VITAL SIGNS PRIOR TO MEDICATION BP 128/63 IN 76 OXYGEN SATURATION AT 95%. PT HAS BEEN HAVING DRY COUGH.PAIN MEDICATION GIVEN PT TOLERATED WELL. SAFETY MEASURES IN PLACE AND CALL LIGHT WITHIN REACH. WILL CONTINUE TO MONITOR.
--- NOTE | 2021-05-08 08:52 | NUR ---
PATIENT HAS BEEN SCREENED AND CATEGORIZED HIGH NUTRITION RISK. PATIENT WILL BE SEEN WITHIN 1-2 DAYS OF ADMISSION. 05/08/21-05/09/[address] Addendum: 05/08/21 at [address] [facility] REFERRAL WAS RECEIVED FOR UNINTENTIONAL WEIGHT LOSS.
[2021-05-08] MEDS ORDERED: ASPIRIN 81 MG TAB.CHEW PO SCH (09:00)
[2021-05-08] MEDS ORDERED: DEXTROSE 50% 50 ML SYR IVP PRN (09:00)
[2021-05-08] MEDS ORDERED: ZOLPIDEM 5 MG TAB PO PRN (09:05)
[2021-05-08] MEDS: metFORMIN 500 MG TAB PO SCH ×2 (09:06→16:41)
[2021-05-08] MEDS: SERTRALINE 50 MG TAB PO SCH (09:32)
[2021-05-08] MEDS: PANTOPRAZOLE 40 MG TABEC PO SCH (09:32)
--- NOTE | 2021-05-08 09:33 | NUR ---
ADMINISTERED SCHEDULED MEDICATIONS AND HELD METFORMIN 500 MG PT WAS ADVISED NOT TO TAKE METFORMIN FOR [address] ABDOMEN WITH CONTRAST YESTERDAY. WILL CONTINUE TO MONITOR.
--- NOTE | 2021-05-08 10:00 | NUR ---
PARKING CASHIER FOR [facility]ARE [facility] CALLED TO GET UPDATES ON PT STATUS AND GAVE THEIR PHONE NUMBER [phone] IN CASE WE NEED SOMETHING AND HAVE SOME QUESTIONS REGARDING THE PATIENT.
[2021-05-08] MEDS: BLOOD GLUCOSE MONITORING 1 DEV DEV FS SCH ×3 (11:23→21:19)
[2021-05-08] MEDS: methylPREDNISolone SS 40 MG/ML VIAL IVP SCH ×2 (11:23→18:31)
--- NOTE | 2021-05-08 11:23 | NUR ---
BLOOD SUGAR 316 MG/DL INSULIN COVERAGE 8 UNITS GIVEN AND ADMINISTERED SCHEDULED MEDICATION METHYLPREDNISOLONE. PT TOLERATED WELL.
[2021-05-08] MEDS: INSULIN LISPRO SLIDING SCALE 100 UNITS/ML VIAL SUBQ PRN ×3 (11:24→21:20)
[2021-05-08 12:00] VITALS: BP 126/66
--- NOTE | 2021-05-08 12:46 | NUR ---
PATIENT COMPLAINS OF BACK AND ABDOMINAL PAIN 03/30 CHECK VITAL SIGNS PRIOR TO MEDICATION BP 120/66 AR 70. PT IS RESTING AND WITH ON GOING DEEP BREATHING TREATMENT. WILL CONTINUE TO MONITOR.
[2021-05-08] MEDS ORDERED: IPRATROPIUM 0.02% 0.5 MG/2.5 ML NEBU INH SCH (13:00)
[2021-05-08 16:00] VITALS: BP 133/62
--- NOTE | 2021-05-08 16:29 | NUR ---
BLOOD SUGAR 441 MG/DL DR GONZALEZ AWARE AND AWAITING DOCTORS ORDER.
--- NOTE | 2021-05-08 16:43 | NUR ---
BLOOD SUGAR 441 MG/DL INSULIN COVERAGE [address] GONZALEZ ORDER. PT TOLERATED WELL AND PT COMPLAINS OF PAIN 03/30.CHECK VITAL SIGNS BP 133/62 IL 77. WILL CONTINUE TO MONITOR.
--- NOTE | 2021-05-08 18:30 | NUR ---
ADMINISTERED SCHEDULED MEDICATION AND PT TOLERATED WELL.
--- NOTE | 2021-05-08 19:27 | NUR ---
RECEIVED REPORT FROM AM NURSE. PATIENT ON BED SITTING. NO SIGNS OF DISTRESS NOTED. BED IN LOW POSITION. CALL LIGHT WITHIN REACH.
--- NOTE | 2021-05-08 19:27 | NUR ---
ENDORSED TO NIGHT NURSE FOR CONTINUITY OF CARE.PT IS STABLE.
[2021-05-08 20:00] VITALS: BP 140/62
[2021-05-08] MEDS: ENOXAPARIN 60 MG/0.6 ML SYR SUBQ SCH (20:50)
[2021-05-08] MEDS ORDERED: MONTELUKAST SODIUM 10 MG TAB PO SCH (21:00)
[2021-05-08] MEDS ORDERED: INSULIN LANTUS 100 UNITS/ML 10 ML VIAL SUBQ SCH (21:00)
--- NOTE | 2021-05-08 21:02 | NUR ---
SCHEDULED MEDS GIVEN ORDERED.
[2021-05-09] VITALS: BP 119/69
[2021-05-09] MEDS: methylPREDNISolone SS 40 MG/ML VIAL IVP SCH ×3 (00:16→11:09)
[2021-05-09] MEDS: ALBUTEROL SULFATE/IPRATROPIU 3 ML SOL IH SCH ×3 (00:55→13:21)
[2021-05-09] MEDS: MORPHINE SULFATE 2 MG/ML SYR IVP PRN ×4 (01:01→14:50)
--- NOTE | 2021-05-09 03:09 | NUR ---
PATIENT IS SLEEPING. NO SIGNS OF RESPIRATORY DISTRESS. CALL LIGHT ON EASY REACH. SAFETY PRECAUTION IN PLACE.
[2021-05-09 04:00] VITALS: BP 118/65
[2021-05-09] MEDS: INSULIN LISPRO SLIDING SCALE 100 UNITS/ML VIAL SUBQ PRN ×2 (06:43→11:56)
[2021-05-09] MEDS: BLOOD GLUCOSE MONITORING 1 DEV DEV FS SCH ×2 (06:45→11:12)
--- NOTE | 2021-05-09 07:32 | NUR ---
ENDORSED TO THE AM SHIFT NURSE FOR CONTINUITY OF CARE. PATIENT IS IN STABLE CONDITION.
--- NOTE | 2021-05-09 07:34 | NUR ---
RECEIVED REPORT FROM NIGHT NURSE. ACCORDING TO NIGHT NURSE PT IS A&OX4 BREATHING ON RA AND SATTING WNL. PT IS ON A REGULAR DIET AND IS CONTINENT. LBM WAS 05/08/21 AND PT IS AMBULATORY.LAST BG WAS 203. SCHEDULED ECHO WAS NOT DONE. MORPHINE WAS LAST GIVEN AT 0515 FOR PAIN.PT HAS AN IV 20G ON RA. INTRODUCED MYSELF THE NURSE FOR THE DAY. SAFETY PRECAUTIONS ARE IN PLACE. CALL LIGHT IS WITHIN REACH. WILL CONTINUE PLAN OF CARE.
[2021-05-09 08:00] VITALS: BP 121/70
[2021-05-09] MEDS: metFORMIN 500 MG TAB PO SCH (08:00)
[2021-05-09] MEDS: PANTOPRAZOLE 40 MG TABEC PO SCH (08:32)
[2021-05-09] MEDS: ASPIRIN 81 MG TAB.CHEW PO SCH (08:32)
[2021-05-09] MEDS: ENOXAPARIN 60 MG/0.6 ML SYR SUBQ SCH (08:33)
[2021-05-09] MEDS: SERTRALINE 50 MG TAB PO SCH (08:33)
--- NOTE | 2021-05-09 08:37 | NUR ---
ADMINISTERED SCHEDULED MEDICATIONS EXCEPT METFORMIN DUE TO CT SCAN IN THE LAST 48 HOURS. BP WAS 121/70 OH:67. EXPLAINED PT ABOUT MEDICATIONS MOA AND ITS SIDE EFFECTS. PT VERBALIZED UNDERSTANDING. PT IS EATING BREAKFAST AND IN NO DISTRESS. CALL LIGHT IS WITHIN REACH WILL CONTINUE TO MONITOR.
[2021-05-09] MEDS ORDERED: DILTIAZEM 120 MG CAPER PO SCH (09:00)
--- NOTE | 2021-05-09 10:24 | NUR ---
pt complain of pain 6/10 and pain medication given pt tolerated well.
--- NOTE | 2021-05-09 11:25 | NUR ---
BLOOD SUGAR 445 MG/DL INSULIN COVERAGE OF 40 UNITS LANTUS AND [address] OF [address]ALOG PER [address] GONZALEZ.
--- NOTE | 2021-05-09 11:47 | NUR ---
DR. GONZALEZ RESPONDED WITH A NEW ORDER OF ADMINISTERING 40 UNITS OF LANTUS ONCE AND 20 UNITS OF HUMALOG.
[2021-05-09 12:00] VITALS: BP 142/58
[2021-05-09] MEDS ORDERED: INSULIN LANTUS 100 UNITS/ML 10 ML VIAL SUBQ SCH (12:10)
--- NOTE | 2021-05-09 12:27 | NUR ---
BLOOD SUGAR 495 MG/DL INSULIN COVERAGE HUMALOG 20 UNITS AND LANTUS 40 UNITS GIVEN SUBQ. PT IS STABLE AND EATING RIGHT NOW.
[2021-05-09 12:46] VITALS: BP 142/58
--- NOTE | 2021-05-09 14:30 | NUR ---
PT COMPLAINED OF PAIN ON CHEST AND ABDOMEN RATING A 6 OUT OF 10. IT IS CONTINOUIS AND ACHING. IT RADIATES ON ALL ABDOMEN. IT IS WORSENED CONTINUOUSLY AND IT GETS BETTER WITH PAIN MEDICATION. WILL ADMINISTER PRN MORPHINE.
[2021-05-09] MEDS ORDERED: APIX5TAB PO (14:40)
--- NOTE | 2021-05-09 14:56 | NUR ---
ADMINISTERED 2MG OF MORPHINE SULFATE IVP TO PT FOR PAIN RATED A6/10. BP WAS 127/60, ID:[id number] AND RR:21. EDUCATED PT ON MEDICATION AND ITS MOA AND SIDE EFFECTS. PT VERBALIZED UNDERSTANDING. PT HAD NO QUESTIONS. PT IS SITTING DOWN ON BED ASKING WHEN SHE CAN GO HOME. I INFORMED HER THAT DR. GONZALEZ WAS MADE AWARE TO FINALIZE HER MEDICATION PRESCRIPTIONS. PT UNDERSTOOD. CALL LIGHT IS WITHIN REACH. PT DOES NOT APPEAR TO BE UNDER DISTRESS. WILL CONTINUE TO MONITOR AND RE ASSESS PAIN IN ONE 30 MINUTES
--- NOTE | 2021-05-09 16:05 | NUR ---
PT WAS DISCHARGED. PT WAS PROVIDED DISCHARGE INSTRUCTIONS PACKET. PT WAS INSTRUCTED TO FOLLOW UP WITH PHP WITHIN 7 DAYS AFTER DISCHARGE. PT WAS EDUCATED ON MEDICATIONS MOA AND SIDE EFFECTS. PT WAS EDUCATED ON WHEN TO SEEK MEDICAL HELP. PT HAD NO QUESTIONS REGARDING HER DISCHARGE. PT WAS ABLE TO DRESS HERSELF. REMOVED HER IV AND APPLIED GAUZE. IV CATHETER WAS INTACT AND DISPOSED PER FACILITY'S PROTOCOL. REMOVED ID BANDS AND DISCARDED PER FACILITY'S PROTOCOL. EDUCATED PT ON THE IMPORTANCE OF FOLLOWING HER DIABETIC DIET AND MEDICATION REGIMEN. WHEELED PT TO LOBBY WITH WHEELCHAIR. PT WAS PICKED UP BY DAUGHTER IN A PRIVATE VEHICLE. WILL END PLAN OF CARE.
== END 2021-05-09 16:05 | disposition home or self-care (01) | DRG 134 ==
LOC: MED 14:48 → MTU 18:18
PROVIDERS: ADMIT Internal Medicine; ATTEND Internal Medicine
DX: I26.99 Other pulmonary embolism without acute cor pulmonale (principal); J96.21 Acute and chronic respiratory failure with hypoxia; E11.00 Type 2 diabetes mellitus with hyperosmolarity without nonketotic hyperglycemic-hyperosmolar coma (NKHHC); J44.1 Chronic obstructive pulmonary disease with (acute) exacerbation; I48.91 Unspecified atrial fibrillation; R91.1 Solitary pulmonary nodule; Z20.822 Contact with and (suspected) exposure to COVID-19; Z88.1 Allergy status to other antibiotic agents; Z86.718 Personal history of other venous thrombosis and embolism; Z88.0 Allergy status to penicillin; Z88.8 Allergy status to other drugs, medicaments and biological substances; Z90.49 Acquired absence of other specified parts of digestive tract
CPT/HCPCS: 36415; 71260; 80053; 82948; 84484; 85025; 87081; 93005; 93970; 94640; 96372; 96374; 96375; 99285; J1650; J1815; J1885; J2270; J2405; J2920; J7644; Q9967

== ENCOUNTER 2021-05-11 18:01 | Emergency (ER) | payer OTHER, SELFPAY ==
[~2021-05-11] VITALS: Ht 157.5 cm; Wt 59.0 kg
[~2021-05-11 18:01] MED LIST changes: -ACET-8386 PO; -ALBU0.0912 IH; -APIX2.5 PO; +APIX5TAB PO; -CEPH-588 PO; -DICL1GEL19 TP; +FAMO-92 PO; -LORA-476 PO; -MONT10TA35 PO; +NAPR-54 PO; -ONDA-24 SL; -ONDA4TAB PO; -PYR100 PO; -ZOLP5TAB1 PO
[2021-05-11 18:06] VITALS: BP 152/91
--- NOTE | 2021-05-11 19:55 | NUR ---
SEEN AND EXAMINED BY RONALD.
--- NOTE | 2021-05-11 20:06 | NUR ---
AMBULATED TO ER BED 8
[2021-05-11] MEDS ORDERED: methylPREDNISolone SS 125 MG/2 ML VIAL IVP ONE (20:15)
[2021-05-11] MEDS ORDERED: ALBUTEROL SULFATE/IPRATROPIU 3 ML SOL IH ONE (20:15)
[2021-05-11] MEDS ORDERED: MORPHINE SULFATE 2 MG/ML SYR IVP ONE (20:15)
[2021-05-11] MEDS ORDERED: ONDANSETRON 4 MG/2 ML VIAL IVP ONE (20:15)
[2021-05-11 20:33] VITALS: BP 148/90
[2021-05-11 20:33] LABS: BASOPHILS # (AUTO) 0.1 K/uL (0.00-0.22); BASOPHILS % (AUTO) 0.7 % (0.0-2.0); EOSINOPHILS # (AUTO) 0.2 K/uL (0-0.4); EOSINOPHILS % (AUTO) 1.5 % (0.0-4.0); HEMATOCRIT 37.7 % (36-48); HEMOGLOBIN 12.3 g/dL (12.0-16.0); LYMPHOCYTES # (AUTO) 3.9 K/uL (2.5-16.5); LYMPHOCYTES % (AUTO) 37.8 % (20.5-51.1); MEAN CORPUSCULAR HEMOGLOBIN 31 pg (27-31); MEAN CORPUSCULAR HGB CONC 33 g/dL (33-37); MONOCYTES # (AUTO) 0.4 K/uL (0.8-1.0); MONOCYTES % (AUTO) 4.2 % (1.7-9.3); NEUTROPHILS # (AUTO) 5.8 K/uL (1.8-7.7); NEUTROPHILS % (AUTO) 55.8 % (42.2-75.2); PLATELET COUNT (AUTO) 386 K/uL (140-450); RED BLOOD CELL COUNT(AUTO) 3.97 MIL/uL (4.20-5.40); RED CELL DISTRIBUTION WIDTH 16.2 % (11.6-13.7); WHITE BLOOD COUNT (AUTO) 10.3 K/uL (4.8-10.8)
--- NOTE | 2021-05-11 20:33 | NUR ---
SEE COMPLETE ASSESSMENT.
--- NOTE | 2021-05-11 20:33 | NUR ---
PT REPORTS SHE JUST RECEIVED CT WITH CONTRAST ON SATURDAY. PER ERMD, EXPLAINED TO PT THAT CT WITH CONTRAST WAS ORDERED TO ASSESS IF PT CONDITION HAS WORSENED. PT REFUSING REPEAT CT WITH CONTRAST AND REQUESTING D/C MEDICATIONS BE SENT TO PHARMACY FOR SURGICAL ORDERLY. ERMD AWARE. AWAITING NEW ORDERS.
[2021-05-11] MEDS ORDERED: MORPHINE SULFATE 2 MG/ML SYR IM ONE (20:35)
[2021-05-11] MEDS ORDERED: methylPREDNISolone SS 125 MG/2 ML VIAL IM ONE (20:35)
[2021-05-11] MEDS ORDERED: ONDANSETRON 4 MG/2 ML VIAL IM ONE (20:35)
[2021-05-11] MEDS ORDERED: PRED20TA6 PO (20:36)
[2021-05-11] MEDS ORDERED: HYDR-5080 PO (20:36)
[2021-05-11 20:50] LABS: ANION GAP 11.9 (8-16); CARBON DIOXIDE 29.1 mmol/L (21-32); CREATININE 0.9 mg/dL (0.6-1.3)
--- NOTE | 2021-05-11 20:54 | NUR ---
Patient discharged with v/s stable. Written and verbal after care instructions given and explained. Patient alert, oriented and verbalized understanding of instructions. Ambulatory with steady gait. All questions addressed prior to discharge. ID band removed. Patient advised to follow up with PMD. Rx of PREDNISONE AND NORCO given. Patient educated on indication of medication including possible reaction and side effects. Opportunity to ask questions provided and answered. CONFIRMED PTS DAUGHTER WILL BE PICKING HER UP AND TAKING HER HOME. PT CONFIRMED SHE WILL HOLISTIC PULSER PREVIOUSLY RX MEDICATIONS WELL.
[2021-05-11 20:55] LABS: TOTAL BILIRUBIN 0.2 mg/dL (0.0-1.0)
[2021-05-11] MEDS: ENOXAPARIN 60 MG/0.6 ML SYR SUBQ ONE ×2 (20:58→21:56)
== END 2021-05-11 20:54 | disposition home or self-care (01) ==
LOC: MED 18:01
DX: I26.99 Other pulmonary embolism without acute cor pulmonale (principal); K21.9 Gastro-esophageal reflux disease without esophagitis; I11.9 Hypertensive heart disease without heart failure; J44.9 Chronic obstructive pulmonary disease, unspecified; E11.9 Type 2 diabetes mellitus without complications; Z88.0 Allergy status to penicillin; Z88.1 Allergy status to other antibiotic agents; Z88.8 Allergy status to other drugs, medicaments and biological substances
CPT/HCPCS: 36415; 80053; 85025; 93005; 96372; 99284; J1650; J2270; J2405; J2930

== ENCOUNTER 2021-05-13 10:52 | Inpatient (IN) | payer OTHER, SELFPAY ==
[~2021-05-13] VITALS: Ht 157.5 cm; Wt 56.7 kg
[~2021-05-13 10:52] MED LIST changes: +HYDR-5080 PO; +PRED20TA6 PO
--- NOTE | 2021-05-13 10:56 | NUR ---
pt ambulated to bed 05.
[2021-05-13 11:03] VITALS: BP 134/60
--- NOTE | 2021-05-13 11:06 | NUR ---
66 YEAR OLD FEMALE COMPLAINS OF CHEST PAIN X 3 WEEKS. PT ALSO COMPLAINS OF ACCOMPANIED SOB THAT IS CHRONIC, AND NAUSEA/VOMITTING THAT HAS STARTED THE PAST 3 DAYS. PT STATES SHE WAS DIAGNOSED WITH BLOOD CLOTS IN LUNGS SATURDAY, AND WAS RECENTLY DISCHARGED FROM THE HOSPITAL ON SATURDAY. PT AOX4, BREATHING EVEN AND UNLABORED, SKIN WARM AND DRY. BED IN LOWEST POSITION, LOCKED, BED RAIL UPX1. PMH - DM2, COPD, ASTHMA ALLERGIES - PCN, UNASYN
[2021-05-13 11:57] LABS: BASOPHILS % (AUTO) 0.4 % (0.0-2.0); EOSINOPHILS # (AUTO) 0.1 K/uL (0-0.4); EOSINOPHILS % (AUTO) 1.1 % (0.0-4.0); HEMATOCRIT 37.5 % (36-48); HEMOGLOBIN 12.5 g/dL (12.0-16.0); LYMPHOCYTES # (AUTO) 3.4 K/uL (2.5-16.5); LYMPHOCYTES % (AUTO) 33.4 % (20.5-51.1); MEAN CORPUSCULAR HEMOGLOBIN 32 pg (27-31); MEAN CORPUSCULAR HGB CONC 33 g/dL (33-37); MEAN CORPUSCULAR VOLUME 95.6 fL (80-94); MONOCYTES # (AUTO) 0.3 K/uL (0.8-1.0); MONOCYTES % (AUTO) 2.9 % (1.7-9.3); NEUTROPHILS # (AUTO) 6.2 K/uL (1.8-7.7); NEUTROPHILS % (AUTO) 62.2 % (42.2-75.2); PLATELET COUNT (AUTO) 397 K/uL (140-450); RED BLOOD CELL COUNT(AUTO) 3.92 MIL/uL (4.20-5.40); RED CELL DISTRIBUTION WIDTH 15.7 % (11.6-13.7); WHITE BLOOD COUNT (AUTO) 10.1 K/uL (4.8-10.8)
[2021-05-13 12:17] LABS: ALBUMIN 3.3 g/dL (3.4-5.0); ANION GAP 8.1 (8-16); CARBON DIOXIDE 32.3 mmol/L (21-32); CREATININE 0.8 mg/dL (0.6-1.3); POTASSIUM 4.4 mmol/L (3.5-5.1); TOTAL BILIRUBIN 0.2 mg/dL (0.0-1.0)
[2021-05-13] MEDS ORDERED: ONDANSETRON 4 MG/2 ML VIAL IVP PRN (12:40)
[2021-05-13] MEDS ORDERED: DEXTROSE 50% 50 ML SYR IVP PRN (12:40)
[2021-05-13] MEDS ORDERED: ACETAMINOPHEN 325 MG TAB PO PRN (12:40)
[2021-05-13] MEDS ORDERED: ALBUTEROL 0.083% 2.5 MG/3 ML NEBU INH PRN (12:40)
[2021-05-13] MEDS ORDERED: HYDROcodone/APAP 5/325 MG 1 TAB TAB PO PRN (12:40)
[2021-05-13] MEDS ORDERED: INSULIN LISPRO SLIDING SCALE 100 UNITS/ML VIAL SUBQ PRN (12:40)
[2021-05-13] MEDS ORDERED: MORPHINE SULFATE 2 MG/ML SYR IVP ONE (12:55)
[2021-05-13] MEDS ORDERED: ONDANSETRON 4 MG/2 ML VIAL IVP ONE (12:55)
--- NOTE | 2021-05-13 13:00 | NUR ---
PT ALERT AND AWAKE, BREATHING EVEN AND UNLABORED. NO DISTRESS NOTED. WILL CONTINUE TO MONITOR.
[2021-05-13 13:36] LABS: CREATINE KINASE MB 1.9 ng/mL (0-3.6)
[2021-05-13] MEDS: ALBUTEROL 0.083% 2.5 MG/3 ML NEBU INH SCH ×2 (13:49→20:16)
--- NOTE | 2021-05-13 13:49 | NUR ---
RT AT BEDSIDE DOING BREATHING TREATMENT
--- NOTE | 2021-05-13 14:03 | NUR ---
LUCAS SWAB SENT TO LAB
[2021-05-13 15:10] VITALS: BP 106/58
--- NOTE | 2021-05-13 15:10 | NUR ---
Patient will be admitted to care of Dr Asher. Admited to Tele. Will go to room 119B. Belongings list completed. Report to Shonda ANGULO.
--- NOTE | 2021-05-13 15:10 | NUR ---
RECEIVED REPORT FROM ER NURSE FOR CONTINUITY OF CARE. PT IS AWAKE AND ALERT AND AMBULATED TO THE BED. PT IS ON RA WITH BREATHING UNLABORED. SR ON TELE MONITORING. PT IS CONTINENT WITH BOWEL AND BLADDER. SKIN IS DRY AND INTACT. IV IS ON THE RAC 20 GAUGE ON SALINE LOCK. PT IS STABLE. PT STATES THAT SHE HAS PAIN IN HER BACK AND CHEST. WILL MEDICATE.
--- NOTE | 2021-05-13 15:41 | NUR ---
TEXTED DR. GONZALEZ THAT PT IS HAVING PAIN IN THE CHEST AND STOMACH AT 8/10. PT DOES NOT WANT TO TAKE NORCO FOR THE PAIN. ASKED IF THERE WAS SOMETHING ELSE WE COULD GIVE FOR PAIN. WILL WAIT FOR RESPONSE BACK.
--- NOTE | 2021-05-13 15:50 | NUR ---
DR. GONZALEZ RESPONDED BACK AND ORDERED MORPHINE 2 MG IVP Q4H FOR SEVERE PAIN. WILL ADMINISTER ONCE VERIFIED.
[2021-05-13] MEDS: MORPHINE SULFATE 2 MG/ML SYR IVP PRN ×2 (15:56→20:59)
--- NOTE | 2021-05-13 15:56 | NUR ---
PT STATES THAT SHE HAS PAIN 8/10. WILL BE ADMINISTERING PRN PAIN MEDICATION ORDERED FROM . MEDICATION EDUCATION WAS GIVEN AND PT VERBALIZED UNDERSTANDING. WILL CONTINUE TO MONITOR.
[2021-05-13 16:00] VITALS: BP 106/60
[2021-05-13] MEDS: metFORMIN 500 MG TAB PO SCH (17:06)
[2021-05-13] MEDS: BLOOD GLUCOSE MONITORING 1 DEV DEV FS SCH ×2 (17:09→21:42)
--- NOTE | 2021-05-13 17:10 | NUR ---
PT'S BS READING WAS 153. PT WAS GIVEN HUMALOG INSULIN PER SLIDING SCALE, 2 UNITS. MEDICATION EDUCATION WAS PROVIDED AND PT VERBALIZED UNDERSTANDING.
--- NOTE | 2021-05-13 19:15 | NUR ---
ENDORSED PT TO DAY SHIFT NURSE FOR CONTINUITY OF CARE. PT IS STABLE AT THIS TIME. PLAN OF CARE DISCUSSED.
--- NOTE | 2021-05-13 19:30 | NUR ---
RECEIVED REPORT FROM ROHIT ANGULO DAYSHIFT NURSE AT BEDSIDE FOR CONTINUITY OF CARE, PT IN STABLE CONDITION. SHE IS AOX4 LYING IN BED IV SITE RAC 20 G INTACT AND ASYMPTOMATIC , SHE IS SALINE LOCKED AT THIS TIME. PT IS ON ROOM AIR, NO C/O VOICED AT THIS TIME ALL UNIVERSAL FALLS PRECAUTIONS IN PLACE.
[2021-05-13 20:00] VITALS: BP 108/57
--- NOTE | 2021-05-13 20:00 | NUR ---
PT LYING IN BED AOX4 ON ROOM AIR. PT FINGERSTICK IS 136, NO HUMALOG COVERAGE NEEDED. V/S FOLLOWS: T 97.6 P 62 R 18 B/P 108/57 02 96% ON ROOM AIR. SHE HAS 20G IV SITE SALINE LOCKED AND FLUSHED PATENT ON RIGHT FOREARM. PT DENIES PAIN AT THIS TIME. ALL UNIVERSAL FALLS PRECAUTIONS IN PLACE.
--- NOTE | 2021-05-13 20:30 | NUR ---
LABS DONE AT BEDSIDE, AND PT RECEIVED SCHEDULED NEBULIZER TREATMENT.
[2021-05-13] MEDS ORDERED: INSULIN LANTUS 100 UNITS/ML 10 ML VIAL SUBQ SCH (21:00)
--- NOTE | 2021-05-13 21:00 | NUR ---
PT GIVEN ORDERED ELIQUIS AND SQ LANTUS, EDUCATION REGARDING MEDICATION PROVIDED AT BEDSIDE, PT VERBALIZED UNDERSTANDING. PT ALSO C/O OF 8/10 CHEST PAIN AT THIS TIME AND WAS GIVEN IVP MORPHINE ORDERED. ALL UNIVERSAL FALLS PRECAUTIONS IN PLACE.
[2021-05-13] MEDS: APIXABAN 2.5 MG TAB PO SCH (21:36)
--- NOTE | 2021-05-13 22:00 | NUR ---
URINE COLLECTED AND SENT TO LAB
[2021-05-14] VITALS: BP 103/56
--- NOTE | 2021-05-14 00:15 | NUR ---
PT RESTING IN BED BUT AROUSABLE TO NAME, V/S FOLLOWS: T 97.9 P 75 R 18 B/P 103/56 02 96% ON ROOM AIR. PT SHE FEELS SOME MODERATE CHEST PAIN , BUT WOULD PREFER TO WAIT UNTIL 1 AM TO RECEIVE THE PRN MORPHINE. WILL CHECK LATER WITH PATIENT REGARDING HER PAIN. ALL UNIVERSAL PRECAUTIONS IN PLACE.
[2021-05-14] MEDS: ALBUTEROL 0.083% 2.5 MG/3 ML NEBU INH SCH ×2 (01:00→07:37)
[2021-05-14] MEDS: MORPHINE SULFATE 2 MG/ML SYR IVP PRN ×3 (01:52→10:00)
--- NOTE | 2021-05-14 02:00 | NUR ---
PT RECEIVED NEBULIZER TREATMENT, AND HAS C/O OF SEVERE 9/10 CHEST PAIN , SHE WAS GIVEN IVP/PRN MORPHINE ORDERED. WILL MONITOR FOR PAIN REIELF.
--- NOTE | 2021-05-14 02:45 | NUR ---
PT IN BED ASLEEP ON ROOM AIR, ALL ORDERED PRECAUTIONS IN PLACE.
[2021-05-14 04:00] VITALS: BP 147/71
--- NOTE | 2021-05-14 06:30 | NUR ---
PT FINGERSTICK IS 48, PT GIVEN JUICE TO BOOST FINGERSTICK .
[2021-05-14 06:43] LABS: BASOPHILS # (AUTO) 0.1 K/uL (0.00-0.22); BASOPHILS % (AUTO) 0.5 % (0.0-2.0); EOSINOPHILS # (AUTO) 0.2 K/uL (0-0.4); EOSINOPHILS % (AUTO) 1.8 % (0.0-4.0); HEMOGLOBIN 11.9 g/dL (12.0-16.0); LYMPHOCYTES # (AUTO) 4.6 K/uL (2.5-16.5); MEAN CORPUSCULAR HEMOGLOBIN 31 pg (27-31); MEAN CORPUSCULAR HGB CONC 32 g/dL (33-37); MEAN CORPUSCULAR VOLUME 97.2 fL (80-94); MONOCYTES # (AUTO) 0.4 K/uL (0.8-1.0); MONOCYTES % (AUTO) 3.7 % (1.7-9.3); NEUTROPHILS # (AUTO) 5.8 K/uL (1.8-7.7); PLATELET COUNT (AUTO) 414 K/uL (140-450); RED BLOOD CELL COUNT(AUTO) 3.81 MIL/uL (4.20-5.40); WHITE BLOOD COUNT (AUTO) 11.1 K/uL (4.8-10.8)
--- NOTE | 2021-05-14 06:50 | NUR ---
RETAKE OF HARIS 98.
[2021-05-14 07:02] LABS: ALBUMIN 2.9 g/dL (3.4-5.0); ANION GAP 7.2 (8-16); CARBON DIOXIDE 31.4 mmol/L (21-32); CREATININE 0.7 mg/dL (0.6-1.3); POTASSIUM 4.6 mmol/L (3.5-5.1); TOTAL BILIRUBIN 0.1 mg/dL (0.0-1.0)
[2021-05-14 07:13] LABS: CREATINE KINASE MB 1.3 ng/mL (0-3.6)
--- NOTE | 2021-05-14 07:31 | NUR ---
RECEIVED CHANGE OF SHIFT REPORT FROM NIGHT NURSE. PT CONDITION IS STABLE. SHE IS AA&O X 4 UPON CHECKING DURING SHIFT REPORT. PT ON RA NO FLUIDS RUNNING CURRENTLY. WILL CONTINUE TO MONITOR.
[2021-05-14] MEDS: BLOOD GLUCOSE MONITORING 1 DEV DEV FS SCH (07:34)
[2021-05-14] MEDS: metFORMIN 500 MG TAB PO SCH (07:59)
[2021-05-14 08:00] VITALS: BP 109/64
[2021-05-14] MEDS: APIXABAN 2.5 MG TAB PO SCH (08:52)
[2021-05-14] MEDS ORDERED: PANTOPRAZOLE 40 MG TABEC PO SCH (09:00)
[2021-05-14] MEDS ORDERED: SERTRALINE 50 MG TAB PO SCH (09:00)
[2021-05-14] MEDS ORDERED: predniSONE 20 MG TAB PO SCH (09:00)
[2021-05-14] MEDS ORDERED: DILTIAZEM 30 MG TAB PO SCH (09:00)
--- NOTE | 2021-05-14 09:00 | NUR ---
ADMINISTERED ELIQUIS AT 0900. PLATELET LEVEL WAS WNL AT 414. PT CONDITION STABLE AND VS NORMAL. WILL CONTINUE TO MONITOR.
--- NOTE | 2021-05-14 10:11 | NUR ---
ADMINISTERED MORPHINE PRN AT 1000 FOR CHEST PAIN 05/30. PT BP WNL 107/56 AND P 61. WILL REASSESS IN 1 HOUR AND CONTINUE TO MONITOR.
--- NOTE | 2021-05-14 11:00 | NUR ---
REASSESSED PT PAIN LEVEL 1 HR AFTER MORPHINE ADMINISTRATION. PT REPORTS PAIN LEVEL 0/10. PT CONDITION IS STABLE. WILL CONTINUE TO MONITOR.
--- NOTE | 2021-05-14 11:00 | NUR ---
PERFORMED HOURLY ROUND. PT CONDITION IS STABLE, AA&O X 4, SKIN INTACT, VERIFIED IV PATENCY VIA SALINE FLUSH, NO IV FLUIDS CURRENTLY, PT DENIES PAIN. WILL CONTINUE TO MONITOR.
--- NOTE | 2021-05-14 11:15 | NUR ---
ORDER FOR DISCHARGE COMPLETED. PT SIGNED ALL APPROPRIATE PAPERWORK, DISCUSSED POC AND DISCHARGE INSTRUCTIONS. PT VERBALIZED UNDERSTANDING OF D/C INSTRUCTIONS. DISCONTINUED IV, TOOK LEADS OFF, TOOK OFF ID BANDS, AND ENSURED PT HAD ALL PERSONAL BELONGINGS. PT WAS PICKED UP IN FRONT OF HOSPITAL BY DAUGHTER.
== END 2021-05-14 12:13 | disposition home or self-care (01) | DRG 203 ==
LOC: MED 10:52 → MTU 12:44
PROVIDERS: ADMIT Internal Medicine; ATTEND Internal Medicine
DX: R07.9 Chest pain, unspecified (principal); I26.99 Other pulmonary embolism without acute cor pulmonale; I48.91 Unspecified atrial fibrillation; E11.9 Type 2 diabetes mellitus without complications; F17.210 Nicotine dependence, cigarettes, uncomplicated; J44.9 Chronic obstructive pulmonary disease, unspecified; R91.1 Solitary pulmonary nodule; Z88.1 Allergy status to other antibiotic agents; Z79.899 Other long term (current) drug therapy; Z88.0 Allergy status to penicillin; Z88.8 Allergy status to other drugs, medicaments and biological substances; Z79.4 Long term (current) use of insulin; Z86.718 Personal history of other venous thrombosis and embolism; Z79.01 Long term (current) use of anticoagulants; Z90.49 Acquired absence of other specified parts of digestive tract; Z20.822 Contact with and (suspected) exposure to COVID-19
CPT/HCPCS: 36415; 71045; 80053; 82550; 82553; 82948; 83880; 84484; 85025; 87081; 93005; 94640; 96374; 96375; 99285; J1815; J2270; J2405; J7512; J7613

== ENCOUNTER 2021-05-29 19:32 | Emergency (ER) | payer OTHER, SELFPAY ==
[~2021-05-29] VITALS: Ht 157.5 cm; Wt 57.6 kg
[~2021-05-29 19:32] MED LIST changes: -HYDR-5080 PO; -PRED20TA5 PO; -PRED20TA6 PO
[2021-05-29 20:00] VITALS: BP 142/76
--- NOTE | 2021-05-29 20:03 | NUR ---
TO LOBBY A/W BED AMBULATORY
[2021-05-29 20:23] LABS: BASOPHILS # (AUTO) 0.1 K/uL (0.00-0.22); BASOPHILS % (AUTO) 0.8 % (0.0-2.0); EOSINOPHILS # (AUTO) 0.1 K/uL (0-0.4); HEMATOCRIT 39.4 % (36-48); HEMOGLOBIN 12.8 g/dL (12.0-16.0); LYMPHOCYTES # (AUTO) 1.3 K/uL (2.5-16.5); LYMPHOCYTES % (AUTO) 19.6 % (20.5-51.1); MEAN CORPUSCULAR HEMOGLOBIN 31 pg (27-31); MEAN CORPUSCULAR HGB CONC 33 g/dL (33-37); MEAN CORPUSCULAR VOLUME 96.2 fL (80-94); MONOCYTES # (AUTO) 0.4 K/uL (0.8-1.0); MONOCYTES % (AUTO) 6.2 % (1.7-9.3); NEUTROPHILS # (AUTO) 4.9 K/uL (1.8-7.7); NEUTROPHILS % (AUTO) 71.4 % (42.2-75.2); PLATELET COUNT (AUTO) 335 K/uL (140-450); RED BLOOD CELL COUNT(AUTO) 4.09 MIL/uL (4.20-5.40); RED CELL DISTRIBUTION WIDTH 15.4 % (11.6-13.7); WHITE BLOOD COUNT (AUTO) 6.8 K/uL (4.8-10.8)
[2021-05-29 20:38] LABS: ALBUMIN 3.5 g/dL (3.4-5.0); ANION GAP 9.8 (8-16); CREATININE 0.9 mg/dL (0.6-1.3); POTASSIUM 4.8 mmol/L (3.5-5.1); TOTAL BILIRUBIN 0.2 mg/dL (0.0-1.0)
[2021-05-29] MEDS ORDERED: NACL 0.9% 1,000 ML IV ONE ×2 (21:00→21:10)
--- NOTE | 2021-05-29 21:36 | NUR ---
PT AMBUALETD TO BED 05
--- NOTE | 2021-05-29 21:56 | NUR ---
CHEST PAIN, FOR 2 WEEKS. HAS SOME DIFFICULTY BREATHING BUT PATIENT HAS A HX OF COPD. CHEST PAIN FEELS LIKE A SHARP COMING AND GOING PAIN 04/29. AAOX4. VSS.
[2021-05-29] MEDS ORDERED: MORPHINE SULFATE 4 MG/ML SYR IVP ONE (22:20)
--- NOTE | 2021-05-29 22:46 | NUR ---
patient to CT via wheelchair
[2021-05-29 23:04] LABS: ANION GAP 10.1 (8-16); CARBON DIOXIDE 27.1 mmol/L (21-32); POTASSIUM 5.2 mmol/L (3.5-5.1)
[2021-05-29] MEDS ORDERED: INSULIN REGULAR, HUMAN 100 UNIT/ML VIAL IV SCH (23:40)
[2021-05-30] MEDS ORDERED: MORPHINE SULFATE 4 MG/ML SYR IVP ONE
[2021-05-30] MEDS ORDERED: INSULIN REGULAR, HUMAN 100 UNIT/ML VIAL SUBQ ONE
[2021-05-30 01:31] LABS: ANION GAP 10.1 (8-16); CARBON DIOXIDE 25.8 mmol/L (21-32); CREATININE 0.8 mg/dL (0.6-1.3); POTASSIUM 4.9 mmol/L (3.5-5.1)
[2021-05-30] MEDS ORDERED: HYDR-5080 PO (02:16)
[2021-05-30 02:20] VITALS: BP 142/76
--- NOTE | 2021-05-30 02:20 | NUR ---
Patient discharged with v/s stable. Written and verbal after care instructions given and explained. Patient alert, oriented and verbalized understanding of instructions. Ambulatory with steady gait. All questions addressed prior to discharge. ID band removed. Patient advised to follow up with PMD. Rx of [place] 7.5-325 given. Patient educated on indication of medication including possible reaction and side effects. Opportunity to ask questions provided and answered.
== END 2021-05-30 02:20 | disposition home or self-care (01) ==
LOC: MED 19:32
DX: R07.89 Other chest pain (principal); R05 Cough; J44.9 Chronic obstructive pulmonary disease, unspecified; E11.9 Type 2 diabetes mellitus without complications; K21.9 Gastro-esophageal reflux disease without esophagitis; F17.210 Nicotine dependence, cigarettes, uncomplicated; Z79.4 Long term (current) use of insulin; Z79.899 Other long term (current) drug therapy; Z71.6 Tobacco abuse counseling; Z88.0 Allergy status to penicillin; Z88.1 Allergy status to other antibiotic agents; Z88.8 Allergy status to other drugs, medicaments and biological substances
CPT/HCPCS: 36415; 71045; 71275; 80048; 80053; 82948; 83880; 84484; 85025; 93005; 96361; 96372; 96374; 96375; 99285; J1815; J2270; J7030; Q9967

== ENCOUNTER 2021-06-20 11:50 | Emergency (ER) | payer OTHER, SELFPAY ==
[~2021-06-20] VITALS: Ht 172.7 cm; Wt 58.2 kg
[~2021-06-20 11:50] MED LIST changes: +HYDR-5080 PO
[2021-06-20 12:10] VITALS: BP 143/68
--- NOTE | 2021-06-20 12:11 | NUR ---
66 Y/O FEMALE CAME IN FOR A C/O SOB X2 DAYS, NON-PRODUCTIVE COUGH NOTED. RESP EVEN AND UNLABORED. 100% ON RA. LUNG SOUNDS RHONCHI BILAT, PMHX COPD. CURRENT SMOKER. PT STATED HER HOME BG WAS OVER 500 AND TOOK 10 U REGULAR INSULIN AND 1,000MG METFORMIN WITH NO FOLLOW UP CHECK. NO S/SX OF HYPERGLYCEMIA AT THIS TIME. PMHX: CHF, COPD, DM, LEFT PE, ASTHMA ALLERGIES: PEN[place] HOME MEDS: SEE LIST
--- NOTE | 2021-06-20 12:30 | NUR ---
PT POC B, DR LAY MADE AWARE.
--- NOTE | 2021-06-20 12:57 | NUR ---
LAB BEDSIDE COLLECTING BLOODWORK FROM PT
--- NOTE | 2021-06-20 13:10 | NUR ---
XRAY BEDSIDE WITH PT
[2021-06-20 13:14] LABS: BASOPHILS # (AUTO) 0.1 K/uL (0.00-0.22); EOSINOPHILS # (AUTO) 0.1 K/uL (0-0.4); EOSINOPHILS % (AUTO) 0.9 % (0.0-4.0); HEMATOCRIT 39.9 % (36-48); HEMOGLOBIN 13.1 g/dL (12.0-16.0); LYMPHOCYTES % (AUTO) 21.1 % (20.5-51.1); MEAN CORPUSCULAR HEMOGLOBIN 31 pg (27-31); MEAN CORPUSCULAR HGB CONC 33 g/dL (33-37); MEAN CORPUSCULAR VOLUME 94.3 fL (80-94); MONOCYTES # (AUTO) 0.4 K/uL (0.8-1.0); MONOCYTES % (AUTO) 4.4 % (1.7-9.3); NEUTROPHILS % (AUTO) 72.6 % (42.2-75.2); PLATELET COUNT (AUTO) 306 K/uL (140-450); RED BLOOD CELL COUNT(AUTO) 4.23 MIL/uL (4.20-5.40); RED CELL DISTRIBUTION WIDTH 14.7 % (11.6-13.7); WHITE BLOOD COUNT (AUTO) 9.6 K/uL (4.8-10.8)
[2021-06-20 13:21] LABS: ALBUMIN 3.7 g/dL (3.4-5.0); ANION GAP 14.2 (8-16); CARBON DIOXIDE 27.1 mmol/L (21-32); CREATININE 0.9 mg/dL (0.6-1.3); POTASSIUM 5.3 mmol/L (3.5-5.1); TOTAL BILIRUBIN 0.3 mg/dL (0.0-1.0)
[2021-06-20] MEDS ORDERED: ALBUTEROL 0.083% 2.5 MG/3 ML NEBU INH ONE (14:10)
[2021-06-20] MEDS ORDERED: INSULIN REGULAR, HUMAN 100 UNIT/ML VIAL SUBQ ONE (14:10)
[2021-06-20] MEDS ORDERED: IPRATROPIUM 0.02% 0.5 MG/2.5 ML NEBU INH ONE (14:10)
[2021-06-20] MEDS ORDERED: HYDROcodone/APAP 5/325 MG 1 TAB TAB PO ONE (14:10)
--- NOTE | 2021-06-20 14:33 | NUR ---
ANANTHD MADE AWARE OF K5.3
[2021-06-20] MEDS ORDERED: HYDROcodone/APAP 5/325 MG 1 TAB TAB ONE (15:33)
[2021-06-20] MEDS ORDERED: BLOOD GLUCOSE MONITORING 1 DEV DEV FS ONE (16:30)
--- NOTE | 2021-06-20 16:33 | NUR ---
REPEAT TROPNIN ORDERED AND LAB CALLED AND MADE AWARE
[2021-06-20 16:55] VITALS: BP 137/78
--- NOTE | 2021-06-20 18:19 | NUR ---
Patient discharged with v/s stable. Written and verbal after care instructions given and explained. Patient verbalized understanding. Ambulatory with steady gait. All questions addressed prior to discharge. Advised to follow up with PMD. PT REFUSED RBEATHING TX, HAS SOME AT HOME AND DOES NOT NEED AT THIS TIME. EXPLAINED RISKS AND BENEFITS AND ACCEPTED.
== END 2021-06-20 18:19 | disposition home or self-care (01) ==
LOC: MED 11:50
DX: J44.1 Chronic obstructive pulmonary disease with (acute) exacerbation (principal); Z20.822 Contact with and (suspected) exposure to COVID-19; R07.9 Chest pain, unspecified; E11.65 Type 2 diabetes mellitus with hyperglycemia; K21.9 Gastro-esophageal reflux disease without esophagitis; Z79.4 Long term (current) use of insulin; Z79.899 Other long term (current) drug therapy; Z88.0 Allergy status to penicillin; Z88.1 Allergy status to other antibiotic agents; Z88.8 Allergy status to other drugs, medicaments and biological substances
CPT/HCPCS: 36415; 71045; 80053; 81002; 81025; 83880; 84484; 85025; 85379; 87426; 93005; 96372; 99283; J1815

== ENCOUNTER 2021-10-25 12:35 | Emergency (ER) | payer OTHER, SELFPAY ==
[~2021-10-25] VITALS: Ht 157.5 cm; Wt 57.2 kg
[~2021-10-25 12:35] MED LIST changes: +ACET-1182 PO; -ACET-9525 PO; +ACET-9527 PO; +ALBU0.0912 IH; +AZIT250T11 PO; +BENZ100C6 PO; +PRED10TA5 PO
[2021-10-25 12:47] VITALS: BP 149/84
[2021-10-25] MEDS: ACETAMIN/CODEINE 120/12MG-5ML 5 ML UDC PO ONE (15:00)
[2021-10-25] MEDS: ALBUTEROL SULFATE/IPRATROPIU 3 ML SOL IH ONE (15:34)
[2021-10-25] MEDS ORDERED: PRED20TA5 PO (19:05)
[2021-10-25] MEDS ORDERED: ALBU0.0912 IH (19:05)
[2021-10-25] MEDS ORDERED: ROBAC PO (19:05)
[2021-10-25] MEDS ORDERED: ACETAMIN/CODEINE 120/12MG-5ML 5 ML UDC ONE (20:10)
[2021-10-25 20:22] VITALS: BP 139/79
--- NOTE | 2021-10-25 20:22 | NUR ---
Patient discharged with v/s stable. Written and verbal after care instructions given and explained. Patient alert, oriented and verbalized understanding of instructions. Ambulatory with steady gait. All questions addressed prior to discharge. ID band removed. Patient advised to follow up with PMD. Rx of ALBUTEROL, PREDNISONE, GUAIFENESIN-CODEINE given. Patient educated on indication of medication including possible reaction and side effects. Opportunity to ask questions provided and answered.
== END 2021-10-25 20:22 | disposition home or self-care (01) ==
LOC: MED 12:35
DX: J20.9 Acute bronchitis, unspecified (principal); J44.0 Chronic obstructive pulmonary disease with (acute) lower respiratory infection; F17.210 Nicotine dependence, cigarettes, uncomplicated; E11.9 Type 2 diabetes mellitus without complications; K21.9 Gastro-esophageal reflux disease without esophagitis; I11.0 Hypertensive heart disease with heart failure; Z85.118 Personal history of other malignant neoplasm of bronchus and lung
CPT/HCPCS: 71045; 94640; 99283

== ENCOUNTER 2021-11-28 08:05 | Emergency (ER) | payer OTHER, SELFPAY ==
[~2021-11-28] VITALS: Ht 157.5 cm; Wt 58.2 kg
[~2021-11-28 08:05] MED LIST changes: +PRED20TA5 PO; +ROBAC PO
[2021-11-28 08:11] VITALS: BP 174/87
--- NOTE | 2021-11-28 08:18 | NUR ---
PATIENT AMBULATED TO BED 12.
[2021-11-28] MEDS ORDERED: MORPHINE SULFATE 4 MG/ML SYR IVP ONE (08:40)
[2021-11-28] MEDS ORDERED: ONDANSETRON 4 MG/2 ML VIAL IVP ONE (08:40)
--- NOTE | 2021-11-28 08:45 | NUR ---
66 Y/O FEMALE C/O LEFT FACIAL/JAW PAIN STARTED TODAY. WITH LUMP TO LEFT JAW, HEADACHE, RADIATING TO LEFT EAR PAIN. PT STATES 7/10 SHARP CONSTANT PAIN. REPORT PAIN WOKE HER UP AT 0100. PMH: DM,LUNG CANCER, REFLUX, COPD, ASTHMA, BLOOD CLOT SEE ALLERGY LIST.
--- NOTE | 2021-11-28 09:12 | NUR ---
BLOOD WORK COLLECTED AND HANDED TO MARLA EPPS
[2021-11-28 09:19] LABS: BASOPHILS % (AUTO) 0.3 % (0.0-2.0); HEMATOCRIT 32.3 % (36-48); HEMOGLOBIN 10.7 g/dL (12.0-16.0); LYMPHOCYTES # (AUTO) 1.5 K/uL (2.5-16.5); LYMPHOCYTES % (AUTO) 20.7 % (20.5-51.1); MEAN CORPUSCULAR HEMOGLOBIN 31 pg (27-31); MEAN CORPUSCULAR HGB CONC 33 g/dL (33-37); MEAN CORPUSCULAR VOLUME 92.2 fL (80-94); MONOCYTES # (AUTO) 0.3 K/uL (0.8-1.0); MONOCYTES % (AUTO) 4.2 % (1.7-9.3); NEUTROPHILS # (AUTO) 5.5 K/uL (1.8-7.7); NEUTROPHILS % (AUTO) 74.8 % (42.2-75.2); PLATELET COUNT (AUTO) 397 K/uL (140-450); RED CELL DISTRIBUTION WIDTH 19.3 % (11.6-13.7); WHITE BLOOD COUNT (AUTO) 7.4 K/uL (4.8-10.8)
[2021-11-28 09:50] LABS: ALBUMIN 2.8 g/dL (3.4-5.0); ANION GAP 12.4 (8-16); CARBON DIOXIDE 31.1 mmol/L (21-32); CREATININE 0.7 mg/dL (0.6-1.3); POTASSIUM 4.5 mmol/L (3.5-5.1); TOTAL BILIRUBIN 0.1 mg/dL (0.0-1.0)
[2021-11-28] MEDS ORDERED: MORPHINE SULFATE 2 MG/ML SYR IVP ONE (11:55)
[2021-11-28] MEDS ORDERED: ACET-8386 PO (12:28)
[2021-11-28 12:53] VITALS: BP 125/65
--- NOTE | 2021-11-28 12:53 | NUR ---
Patient discharged with v/s stable. Written and verbal after care instructions given and explained. Patient alert, oriented and verbalized understanding of instructions. Ambulatory with steady gait. All questions addressed prior to discharge. ID band removed. Patient advised to follow up with PMD. Rx of HYDROCODONE-ACETAMINOPHEN given. Patient educated on indication of medication including possible reaction and side effects. Opportunity to ask questions provided and answered.
== END 2021-11-28 12:53 | disposition home or self-care (01) ==
LOC: MED 08:05
DX: D11.0 Benign neoplasm of parotid gland (principal); E11.9 Type 2 diabetes mellitus without complications; J45.909 Unspecified asthma, uncomplicated; I11.0 Hypertensive heart disease with heart failure
CPT/HCPCS: 36415; 70491; 80053; 85025; 96374; 96375; 96376; 99285; J2270; J2405; Q9967

== ENCOUNTER 2022-01-24 11:06 | Inpatient (IN) | payer OTHER ==
[~2022-01-24] VITALS: Ht 157.5 cm; Wt 57.6 kg
[~2022-01-24 11:06] MED LIST changes: +ACET-8386 PO; -AZIT250T11 PO; -NAPR-54 PO; -PRED10TA5 PO; -PRED20TA5 PO
[2022-01-24 11:12] VITALS: BP 146/103
--- NOTE | 2022-01-24 11:12 | NUR ---
PATIENT W/C ASSISTED TO BED 1.
[2022-01-24] MEDS ORDERED: ALBUTEROL SULFATE/IPRATROPIU 3 ML SOL IH ONE (11:20)
[2022-01-24] MEDS ORDERED: MAG SULF 2000 MG/WATER PREMIX 50 ML IV ONE (11:20)
[2022-01-24] MEDS ORDERED: methylPREDNISolone SS 125 MG/2 ML VIAL IVP ONE (11:20)
--- NOTE | 2022-01-24 11:20 | NUR ---
First contact with pt. Pt has CC of SOB for the past 5 days. Pt exclaimed that she used oxygen at home and been taking her medications but the SOB has been getting increasingly worse. Pt is showing work of breathing, expiratory wheezes can be heard but pt's oxygen saturation is 97%. Pt has hx of asthma, COPD, lung cancer, DM2, and blood clots. Pt's mentation is within normal limits, will continue to monitor.
--- NOTE | 2022-01-24 11:25 | NUR ---
COVID LUCAS SWAB DONE. WALKED TO LAB.
[2022-01-24] MEDS ORDERED: MORPHINE SULFATE 4 MG/ML SYR IVP ONE (11:30)
--- NOTE | 2022-01-24 11:45 | NUR ---
BREATHING TX ADMINISTERED. PT REFUSED ABG X3, EXPLAINED INDICATIONS PT STILL REFUSED, NURSE BEDSIDE.
[2022-01-24 12:15] LABS: BASOPHILS # (AUTO) 0.1 K/uL (0.00-0.22); BASOPHILS % (AUTO) 1.1 % (0.0-2.0); HEMATOCRIT 37.5 % (36-48); HEMOGLOBIN 12.1 g/dL (12.0-16.0); LYMPHOCYTES % (AUTO) 26.4 % (20.5-51.1); MEAN CORPUSCULAR HEMOGLOBIN 28 pg (27-31); MEAN CORPUSCULAR HGB CONC 32 g/dL (33-37); MEAN CORPUSCULAR VOLUME 88.1 fL (80-94); MONOCYTES # (AUTO) 0.4 K/uL (0.8-1.0); MONOCYTES % (AUTO) 4.7 % (1.7-9.3); NEUTROPHILS # (AUTO) 5.3 K/uL (1.8-7.7); NEUTROPHILS % (AUTO) 67.8 % (42.2-75.2); PLATELET COUNT (AUTO) 334 K/uL (140-450); RED BLOOD CELL COUNT(AUTO) 4.26 MIL/uL (4.20-5.40); RED CELL DISTRIBUTION WIDTH 17.8 % (11.6-13.7); WHITE BLOOD COUNT (AUTO) 7.8 K/uL (4.8-10.8)
[2022-01-24 12:36] LABS: ALBUMIN 3.9 g/dL (3.4-5.0); ANION GAP 15.8 (8-16); CARBON DIOXIDE 26.3 mmol/L (21-32); CREATININE 0.7 mg/dL (0.6-1.3); POTASSIUM 4.1 mmol/L (3.5-5.1); TOTAL BILIRUBIN 0.3 mg/dL (0.0-1.0)
--- NOTE | 2022-01-24 13:18 | NUR ---
PT RESTING IN BED, VSS, WILL CONTINUE TO MONITOR.
[2022-01-24] MEDS ORDERED: DOCUSATE SODIUM 100 MG GELCAP PO PRN (15:10)
[2022-01-24] MEDS ORDERED: ACETAMINOPHEN 325 MG TAB PO PRN (15:10)
[2022-01-24] MEDS ORDERED: POTASSIUM CHLORIDE 10 MEQ TABER PO PRN (15:10)
[2022-01-24] MEDS ORDERED: SODIUM PHOS / POTASSIUM PHOS 1 PKT PDR PO PRN (15:10)
[2022-01-24] MEDS ORDERED: ONDANSETRON 4 MG/2 ML VIAL IM/IVP PRN (15:10)
[2022-01-24] MEDS ORDERED: MAGNESIUM OXIDE 400 MG TAB PO PRN (15:10)
[2022-01-24] MEDS ORDERED: DEXTROSE 50% 50 ML SYR IVP PRN (15:15)
[2022-01-24] MEDS ORDERED: oxyCODONE/APAP 5/325 MG 1 TAB TAB PO ONE (15:20)
[2022-01-24] MEDS ORDERED: MORPHINE SULFATE 2 MG/ML SYR IVP ONE (16:10)
[2022-01-24] MEDS: BLOOD GLUCOSE MONITORING 1 DEV DEV FS SCH ×2 (16:46→20:27)
[2022-01-24 16:50] LABS: MAGNESIUM 2.1 mg/dL (1.8-2.4); PHOSPHORUS 3.4 mg/dL (2.5-4.9)
--- NOTE | 2022-01-24 17:50 | NUR ---
PT ARRIVED ON TO UNIT VIA [facility], ACCOMPANIED BY ER NURSE AND TRANSPORTER. PT AMBULATED FROM [place] ONTO BED. PT IS ALERT AND ORIENTED X4. ABLE TO VERBALIZE NEEDS TO STAFF. ABLE TO AMBULATE. HR REGULAR, 82 BPM. PT IS ON 2L 02 VIA NC, SATURATING AT 97%. NO SIGNS OF DISTRESS NOTED. ABD IS NONDISTENDED, NONTENDER, WITH BOWEL SOUNDS PRESENT. PT IS ON CCHO 60 GRAMS, DIET. PT HAS FULL ROM TO UPPER AND LOWER EXTREMITIES. NO DEFICITS NOTED. SKIN IS WARM, DRY, AND INTACT. PT HAS RFA 22G, INTACT, NO FLUIDS RUNNING AT THIS TIME. MRSA SCREEN DONE. VITALS TAKEN. ALL SAFETY MEASURES IN PLACE. CALL LIGHT WITHIN REACH. WILL CONTINUE TO MONITOR.
--- NOTE | 2022-01-24 18:00 | NUR ---
Patient will be admitted to care of DR. ROSS. Admited to TELE. Will go to room 104A. Belongings list completed. Report AT BEDSIDE GIVEN BY ADELE WALLS.
[2022-01-24] MEDS ORDERED: INSULIN LISPRO 100 UNITS/ML VIAL SUBQ SCH (18:35)
[2022-01-24 19:00] VITALS: BP 116/79
--- NOTE | 2022-01-24 19:09 | NUR ---
BLOOD SUGAR 487. DR ROSS MADE AWARE. NEW ORDERS PLACED ONE TIME FOR 12 UNITS HUMALOG. ORDERS CARRIED OUT.
--- NOTE | 2022-01-24 19:09 | NUR ---
ENDORSED PT TO STOCK COUNTER NURSE FOR CONTINUITY OF CARE. ALL NEEDS MET THROUGHOUT SHIFT. PT IS STABLE.
[2022-01-24] MEDS: ALBUTEROL SULFATE/IPRATROPIU 3 ML SOL IH SCH (19:27)
--- NOTE | 2022-01-24 19:27 | NUR ---
PT PRESENTS SITTING IN BED AWAKE AND COOPERATIVE, ANTERIOR AUSCULTATION REVEALED BS COARSE CRACKLES THROUGHOUT ALL LUNG DEWEY, STRONG PRODUCTIVE COUGH, NO SIGNS OF RESPIRATORY DISTRESS NOTED AT THIS TIME. PT IS CURRENTLY SATING 99% ON 2LPM NC. WILL CONTINUE TO MONITOR. Addendum: 01/24/22 at 2103 by Shawn Sr RT ADMINISTERED HHN TX VIA SVN WITH MASK; SOB IMPROVED.
--- NOTE | 2022-01-24 19:58 | NUR ---
RECEIVED PT TRACH TO VENT WITH A PORTEX 8 ON A [employer]SCAPE R860 VENTILATOR SETTINGS SIMV VT500, RR14, PEEP+5, PS10, FIO2 40%. PT PRESENTS AWAKE, ALERT, IRRITABLE, NOTED TO BE TACHYPNEIC AND TACHYCARDIC, STATES TO BE IN PAIN. CURRENTLY SATING 98%. ANTERIOR AUSCULTATION REVEALED BS CLEAR/DIMINISHED THROUGHOUT ALL LUNG DEWEY, SXN SMALL WHITE FROTHY SECRETIONS. HOB ELEVATED, AMBU BAG AT BEDSIDE, VENT PLUGGED INTO RED OUTLET, ALARMS ARE ON AND AUDIBLE. WILL CONTINUE TO MONITOR. Addendum: 01/24/22 at 2211 by Shawn Sr RT CORRECTION CHARTED ON WRONG PT.
[2022-01-24 20:00] VITALS: BP 116/79
--- NOTE | 2022-01-24 20:00 | NUR ---
REPORT RECEIVED. CARE TAKEN OVER. PT AWAKE. PAIN 9/10 IN CHEST D/T RESPIRATORY PAIN WITH BREATHING. PT IS SATURATING 99% ON 2L AT THIS TIME DESPITE PAIN. LUNGS SOUND RHONCHI. PT STATES EXPECTORATING GREEN SPUTUM AT TIMES. COPD DX. SR ON EKG. BOWEL SOUNDS PRESENT, LAST BM THIS MORNING 01/24/22. SKIN INTACT. IV TO LEFT INNER FOREARM PATENT AND WNL. VITAL SIGNS STABLE. WILL CONTINUE TO MONITOR.
[2022-01-24] MEDS: APIXABAN 2.5 MG TAB PO SCH (20:27)
[2022-01-24] MEDS: MORPHINE SULFATE 2 MG/ML SYR IVP PRN (20:29)
[2022-01-24] MEDS ORDERED: INSULIN LISPRO 100 UNITS/ML VIAL SUBQ ONE (20:40)
[2022-01-24] MEDS ORDERED: INSULIN LANTUS 100 UNITS/ML 10 ML VIAL SUBQ SCH (21:00)
[2022-01-24] MEDS: HYDROcodone/APAP 5/325 MG 1 TAB TAB PO PRN (21:15)
[2022-01-24] MEDS ORDERED: ZOLPIDEM 5 MG TAB PO SCH (21:50)
--- NOTE | 2022-01-25 | NUR ---
PT AWAKE, SITTING UP IN BED, JUST AMBULATED TO RESTROOM AND BACK TO BED WITHOUT PROBLEM. BACK ON NC AT 2L. COUGHING, NON-PRODUCTIVE. PT WITH PAIN IN CHEST FROM COUGHING. 06/30. ABLE TO GIVE MORPHINE AT 0029 AND WILL GIVE PER MD ORDER. WILL CONTINUE TO MONITOR.
[2022-01-25 00:24] VITALS: BP 130/61
[2022-01-25] MEDS: MORPHINE SULFATE 2 MG/ML SYR IVP PRN ×6 (00:38→22:52)
--- NOTE | 2022-01-25 02:24 | NUR ---
PT SLEEPING. NO DISTRESS NOTED. WILL CONTINUE TO MONITOR.
[2022-01-25] MEDS: ALBUTEROL SULFATE/IPRATROPIU 3 ML SOL IH PRN (03:47)
[2022-01-25 04:04] VITALS: BP 135/68
[2022-01-25] MEDS: methylPREDNISolone SS 125 MG/2 ML VIAL IVP SCH ×3 (04:11→20:51)
[2022-01-25] MEDS ORDERED: INSULIN LANTUS 100 UNITS/ML 10 ML VIAL SUBQ SCH (06:10)
[2022-01-25] MEDS: BLOOD GLUCOSE MONITORING 1 DEV DEV FS SCH ×4 (06:31→20:53)
[2022-01-25 06:47] LABS: BASOPHILS # (AUTO) 0.1 K/uL (0.00-0.22); BASOPHILS % (AUTO) 0.8 % (0.0-2.0); EOSINOPHILS % (AUTO) 0.1 % (0.0-4.0); HEMATOCRIT 33.5 % (36-48); HEMOGLOBIN 10.8 g/dL (12.0-16.0); LYMPHOCYTES # (AUTO) 1.9 K/uL (2.5-16.5); MEAN CORPUSCULAR HEMOGLOBIN 29 pg (27-31); MEAN CORPUSCULAR HGB CONC 32 g/dL (33-37); MEAN CORPUSCULAR VOLUME 88.3 fL (80-94); MONOCYTES # (AUTO) 0.4 K/uL (0.8-1.0); MONOCYTES % (AUTO) 4.6 % (1.7-9.3); NEUTROPHILS # (AUTO) 6.2 K/uL (1.8-7.7); NEUTROPHILS % (AUTO) 72.5 % (42.2-75.2); PLATELET COUNT (AUTO) 343 K/uL (140-450); RED BLOOD CELL COUNT(AUTO) 3.79 MIL/uL (4.20-5.40); RED CELL DISTRIBUTION WIDTH 17.9 % (11.6-13.7); WHITE BLOOD COUNT (AUTO) 8.5 K/uL (4.8-10.8)
--- NOTE | 2022-01-25 06:50 | NUR ---
WILL ENDORSE CARE TO DAY SHIFT RN. PT VITALS STABLE. BREATHING TX DONE -PT REPORTS EFFECTIVE AND LOOSENING UP SECRETIONS. BLOOD GLUCOSE APPROX O6AM OF 495 COVERED PER MD WITH LANTUS 30UNITS. PT DENIES PAIN AT THIS TIME.
--- NOTE | 2022-01-25 07:00 | NUR ---
RECEIVED REPORT FROM PUBLICATIONS MANAGER NURSE FOR CONTINUITY OF CARE. PT A/O X4. ABLE TO MAKE NEEDS KNOWN. ON 2L NC. CHEST PAIN ON EXERTION. CCHO DIET DIET. CHRONIC PAIN 05/30. PT BREATHING IS EVEN AND UNLABORED. NO SIGNS OR SYMPTOMS OF DISTRESS. SAFETY MEASURES IN PLACE. PT IS STABLE.
[2022-01-25 07:34] LABS: ANION GAP 12.5 (8-16); CARBON DIOXIDE 28.6 mmol/L (21-32); CREATININE 0.8 mg/dL (0.6-1.3); POTASSIUM 5.1 mmol/L (3.5-5.1)
[2022-01-25] MEDS: ALBUTEROL SULFATE/IPRATROPIU 3 ML SOL IH SCH ×3 (07:37→19:02)
[2022-01-25 08:00] VITALS: BP 131/70
--- NOTE | 2022-01-25 08:11 | NUR ---
PATIENT HAS BEEN SCREENED AND CATEGORIZED MODERATE NUTRITION RISK. PATIENT WILL BE SEEN WITHIN 3-5 DAYS OF ADMISSION. ANDREA HARDING RD
[2022-01-25] MEDS: DILTIAZEM 120 MG CAPER PO SCH (08:20)
[2022-01-25] MEDS: PANTOPRAZOLE 40 MG TABEC PO SCH (08:20)
[2022-01-25] MEDS: SERTRALINE 50 MG TAB PO SCH (08:21)
[2022-01-25] MEDS: APIXABAN 2.5 MG TAB PO SCH ×2 (08:21→20:56)
[2022-01-25] MEDS: HYDROcodone/APAP 5/325 MG 1 TAB TAB PO PRN ×3 (08:21→20:51)
[2022-01-25] MEDS ORDERED: AZITHROMYCIN 250 MG TAB PO ONE (09:00)
--- NOTE | 2022-01-25 10:50 | NUR ---
LATE ENTRY- MAGNESIUM SULFATE IVPB DISCONTINUED AT 1800.
--- NOTE | 2022-01-25 11:15 | NUR ---
DC PLANNIN YRS OLD FEMALE PATIENT WAS ADMITTED FROM HOME WITH A DX OF COPD EXACERBATION. PATIENT HAS A HX OF COPD, LUNG CA WITH METASTATIC DISEASE , DM, ASTHMA, AND PE ON ELIQUIS. CXR SHOWED BILATERAL INTERSTITIAL PULMONARY OPACITIES FAVOR CHRONIC LUNG DISEASE. RAPID COVID TEST AND INFLUENZA A&B NEGATIVE. ADMINISTERED O2 2L/NC SATING 95%, SOLU-MEDROL 40 MG IV , BREATHING TREATMENT AND CONTINUED HOME MEDS. DC PLAN TO GO HOME WHEN STABLE CM TO FOLLOW Addendum: 01/25/22 at 1517 by Janee Wilkinson RN DC PLANNING: PT REQUESTED TO TALK TO CM REGARDING ISSUES OF THE OXYGEN. PT STATED RECEIVED A CALL FROM [employer] STATED THEY ARE NO LONGER PROVIDE THE HOME O2 BECAUSE OF A CHANGE OF INSURANCE. CALLED [employer] [phone] STATED PT CHANGED INSURANCE AND THEY ARE NO CONTRACTED WITH MEDICARE A&B . CALLED [facility] SPOKE WITH NANCY , FAXED ALL PAPER WORK . NANCY WILL RUN THE ELIGIBILITY AND CALL BACK. CM TO FOLLOW. Addendum: 01/26/22 at 1410 by Janee Wilkinson RN DC PLANNING: PATIENT GOT APPROVED WITH [facility] , DELIVERED THE HOME O2 AND CONCENTRATION TO BED SIDE AT THE HOSPITAL. AUDIBLE WHEEZING, CONTINUE STEROID TAPERING ,MONITORED BLOOD GLUCOSE ,INCREASED LANTUS 40 UNITS. PULMO FOLLOWING. F/U WITH HEME/ONCOLOGIST OUTPATIENT FOR LUNG CA. PT HAS APPOINTMENT ON January WITH ONCOLOGIST. DC PLAN TO GO HOME WHEN STABLE. CM TO FOLLOW Addendum: 01/29/22 at 1117 by Janee Wilkinson RN DC PLANNING: PATIENT HAS A DC ORDER, HOME O2 WAS DELIVERED AT BED SIDE WITH [facility], PATIENT AGREED WITH DC AND WILL F/U WITH UPCOMING ONCOLOGIST ON THE 12 OF FEBRUARY. STABLE FOR DISCHARGE.
--- NOTE | 2022-01-25 11:30 | NUR ---
BS IS 582. INFORMED MD. GAVE INSULIN PER MD ORDER AND MD CHANGED LANTUS TO BID. PT BREATHING IS EVEN AND UNLABORED. NO SIGNS OR SYMPTOMS OF DISTRESS. SAFETY MEASURES IN PLACE. PT IS STABLE.
[2022-01-25 12:00] VITALS: BP 129/69
--- NOTE | 2022-01-25 12:00 | NUR ---
PAIN MEDS GIVEN PER MD ORDER. PT BREATHING IS EVEN AND UNLABORED. NO SIGNS OR SYMPTOMS OF DISTRESS. SAFETY MEASURES IN PLACE. PT IS STABLE.
[2022-01-25] MEDS: INSULIN LISPRO SLIDING SCALE 100 UNITS/ML VIAL SUBQ PRN ×3 (13:23→20:58)
[2022-01-25 16:00] VITALS: BP 115/62
--- NOTE | 2022-01-25 16:30 | NUR ---
BS IS 314, COVERED PER SLIDING SCALE. PT BREATHING IS EVEN AND UNLABORED. NO SIGNS OR SYMPTOMS OF DISTRESS. SAFETY MEASURES IN PLACE. PT IS STABLE.
--- NOTE | 2022-01-25 19:35 | NUR ---
RECEIVED BEDSIDE REPORT FROM DAY SHIFT NURSE. PATIENT IS AWAKE, ALERT, AND COOPERATIVE. RESPIRATION EVEN UNLABORED ON 2L NC O2. NO DISTRESS NOTED. SKIN IS WARM AND DRY. IV PATENT AND INTACT. PLAN OF CARE WAS DISCUSSED. ALL SAFETY MEASURES IN PLACE. BED IS AT LOW POSITION. CALL LIGHT WITHIN REACH. WILL CONTINUE TO MONITOR.
--- NOTE | 2022-01-25 19:35 | NUR ---
ENDORSED PT TO TRADING SPECIALIST NURSE FOR CONTINUITY OF CARE. POC DISCUSSED.
[2022-01-25 20:00] VITALS: BP 107/65
--- NOTE | 2022-01-25 20:45 | NUR ---
PATIENT O2 ARRIVED. PLACED O2 BY THE BEDSIDE.
--- NOTE | 2022-01-25 20:55 | NUR ---
ALL SCHEDULED MEDS WERE GIVEN PER ORDER. WILL CONTINUE TO MONITOR.
[2022-01-25] MEDS: INSULIN LANTUS 100 UNITS/ML 10 ML VIAL SUBQ SCH (20:56)
--- NOTE | 2022-01-25 22:50 | NUR ---
PATIENT COMPLAINED OF CHEST PAIN DUE TO COUGH 8/10 PRN PAIN MEDS GIVEN PER ORDER. PATIENT ALSO COMPLAINED OF NON-PRODUCTIVE DRY COUGH PRN COUGH MEDS GIVEN PER ORDER. WILL CONTINUE TO MONITOR
[2022-01-25] MEDS: BENZONATATE 100 MG CAPLF PO PRN (23:00)
[2022-01-26] VITALS: BP 126/85
--- NOTE | 2022-01-26 00:30 | NUR ---
VITALS WERE TAKEN. PATIENT IN STABLE CONDITION. DENIES PAIN AT THIS TIME
[2022-01-26] MEDS: MORPHINE SULFATE 2 MG/ML SYR IVP PRN ×5 (02:55→22:30)
--- NOTE | 2022-01-26 02:55 | NUR ---
PATIENT COMPLAINED OF CHEST PAIN 10/10 DUE TO COUGH. PRN PAIN MEDS GIVEN PER ORDER. RT AT BEDSIDE GIVING BREATHING TREATMENT
[2022-01-26] MEDS: ALBUTEROL SULFATE/IPRATROPIU 3 ML SOL IH PRN (02:56)
[2022-01-26 04:00] VITALS: BP 137/79
--- NOTE | 2022-01-26 04:00 | NUR ---
VITALS WERE TAKEN. PATIENT IN STABLE CONDITION. NO DISTRESS NOTED. WILL CONTINUE TO MONITOR.
[2022-01-26] MEDS: HYDROcodone/APAP 5/325 MG 1 TAB TAB PO PRN ×3 (05:16→17:05)
[2022-01-26] MEDS: methylPREDNISolone SS 40 MG/ML VIAL IVP SCH ×3 (05:16→20:26)
--- NOTE | 2022-01-26 05:16 | NUR ---
PATIENT COMPLAINED OF 6/10 CHEST PAIN DUE TO COUGH. PRN PAIN MEDS GIVEN PER ORDER. WILL CONTINUE TO MONITOR
--- NOTE | 2022-01-26 05:30 | NUR ---
PAGED REGARDING PATIENT BLOOD SUGAR 591 AWAITING FOR CALL BACK.
--- NOTE | 2022-01-26 05:54 | NUR ---
PAGED AGAIN, AWAITING FOR CALL BACK.
--- NOTE | 2022-01-26 06:20 | NUR ---
PAGED AGAIN, AWAITING FOR CALL BACK
[2022-01-26] MEDS: BLOOD GLUCOSE MONITORING 1 DEV DEV FS SCH ×4 (06:50→20:26)
[2022-01-26] MEDS: INSULIN LISPRO SLIDING SCALE 100 UNITS/ML VIAL SUBQ PRN ×4 (06:50→20:22)
[2022-01-26 06:51] LABS: HEMATOCRIT 33.7 % (36-48); HEMOGLOBIN 10.9 g/dL (12.0-16.0); LYMPHOCYTES # (AUTO) 0.5 K/uL (2.5-16.5); LYMPHOCYTES % (AUTO) 5.2 % (20.5-51.1); MEAN CORPUSCULAR HEMOGLOBIN 29 pg (27-31); MEAN CORPUSCULAR HGB CONC 32 g/dL (33-37); MEAN CORPUSCULAR VOLUME 88.1 fL (80-94); MONOCYTES # (AUTO) 0.2 K/uL (0.8-1.0); MONOCYTES % (AUTO) 2.4 % (1.7-9.3); NEUTROPHILS # (AUTO) 8.3 K/uL (1.8-7.7); NEUTROPHILS % (AUTO) 92.4 % (42.2-75.2); PLATELET COUNT (AUTO) 338 K/uL (140-450); RED BLOOD CELL COUNT(AUTO) 3.82 MIL/uL (4.20-5.40)
--- NOTE | 2022-01-26 07:09 | NUR ---
ADMINISTERED 10UNITS OF HUMALOG PER PROTOCOL. STILL WAITING FOR MD CALL BACK. ENDORSED PATIENT TO DAY SHIFT. WILL CONTINUE TO MONITOR.
[2022-01-26] MEDS: ALBUTEROL SULFATE/IPRATROPIU 3 ML SOL IH SCH ×3 (07:27→19:27)
--- NOTE | 2022-01-26 07:30 | NUR ---
RECEIVED REPORT FROM KELLY MACHINE OPERATOR NURSE FOR CONTINUITY OF CARE. PT AWAKE IN BED. BREATHING SYMMETRICAL ON O2 2L NC. NO C/O PAIN AT THIS TIME. WITH RFA 22G, SALINE LOCK. AWAITING RESPONSE FROM DR ROSS REGARDING ELEVATED BLOOD SUGAR, PT WAS GIVEN 10U INSULIN PER REPORT AND ALSO PT RECEIVING SOLUMEDROL. NO S/SX OF HYPERGLYCEMIA NOTED AT THIS TIME. HOME O2 WAS ALSO DELIVERED LAST NIGHT PER REPORT AND AT BEDSIDE. CALL LIGHT WITHIN REACH. ALL SAFETY MEASURES IN PLACE.
[2022-01-26 07:48] LABS: ANION GAP 14.9 (8-16); CARBON DIOXIDE 26.5 mmol/L (21-32); POTASSIUM 5.4 mmol/L (3.5-5.1)
[2022-01-26 08:00] VITALS: BP 106/76
--- NOTE | 2022-01-26 08:07 | NUR ---
LEFT MESSAGE TO DR ROSS REGARDING GLUCOSE LEVEL [id number]
[2022-01-26] MEDS: DILTIAZEM 120 MG CAPER PO SCH (08:33)
[2022-01-26] MEDS: APIXABAN 2.5 MG TAB PO SCH ×2 (08:33→20:27)
[2022-01-26] MEDS: PANTOPRAZOLE 40 MG TABEC PO SCH (08:34)
[2022-01-26] MEDS: INSULIN LANTUS 100 UNITS/ML 10 ML VIAL SUBQ SCH ×2 (08:34→20:26)
[2022-01-26] MEDS: SERTRALINE 50 MG TAB PO SCH (08:35)
[2022-01-26] MEDS: AZITHROMYCIN 250 MG TAB PO SCH (08:35)
--- NOTE | 2022-01-26 08:45 | NUR ---
SCHEDULED AM MEDICATIONS GIVEN. RE-CHECKED BLOOD SUGAR 571, 30U LANTUS GIVEN SQ. PT HAS ACCUCHECK TID AC MEALS AND HS, ALSO ON SOLUMEDROL. DR ROSS MADE AWARE.
--- NOTE | 2022-01-26 10:20 | NUR ---
PT TRANSFERRED TO [facility]
--- NOTE | 2022-01-26 12:00 | NUR ---
PT'S BLOOD SUGAR 486, 10U GIVEN PER SLIDING SCALE, DR ROSS MADE AWARE WITH NEW ORDER FOR HUMULIN 70/30 AC MEALS.
--- NOTE | 2022-01-26 13:09 | NUR ---
NOTED RFA IV LINE LEAKING. INSERTED ANOTHER LINE ON LFA 22G, NO S/SX OF INFILTRATION NOTED.
[2022-01-26] MEDS: MONTELUKAST SODIUM 10 MG TAB PO SCH (13:15)
--- NOTE | 2022-01-26 15:01 | NUR ---
LEFT MESSAGE TO DR ROSS REGARDING ELEVATED POTASSIUM LEVEL 5.4, AWAITING RESPONSE.
[2022-01-26] MEDS ORDERED: NACL 0.9% 500 ML IV SCH (15:40)
[2022-01-26] MEDS ORDERED: SODIUM POLYSTYRENE 15 GM/60 ML UDBTL PO SCH (15:44)
[2022-01-26] MEDS ORDERED: NACL 0.9% 500 ML IV ONE (15:45)
--- NOTE | 2022-01-26 15:56 | NUR ---
DC PLANNING PATIENT IS A 66 YR OLD FEMALE WHO WAS ADMITTED ON 01/24/22 FOR COPD EXACERBATION. SW MET WITH PATIENT AND PATIENTS DAUGHTER KUSH SHARMA FOR THE PURPOSE OF DISCUSSING AND GATHERING COLLATERAL INFORMATION. PATIENT REPORTS LIVING WITH HER DAUGHTER AND TWO GRANDCHILDREN. PATIENT REPORTS EMERGENCY CONTACT AND MEDICAL DECISION MAKERS EMILY SHARMA [phone] AND TIFF SHARMA [phone]. SW INQUIRED ON A.D, PATIENT DECLINED CURRENTLY HAVING ONE IN PLACE AT THIS TIME. SW PROVIDE PATIENT WITH INFORMATION AND EDUCATION ON AD AND OFFERED TO PROVIDE FAMILY WITH A.D PACKET; FAMILY DECLINED AT THIS TIME. SW ENCOURAGED FAMILY TO SPEAK ABOUT IT AND TO MAKE THE DECISION WHEN APPROPRIATE FOR FAMILY. PATIENT AND DAUGHTER WERE RECEPTIVE. PATIENT REPORTS THAT SHE WILL BE RETUNING HOME AND DAUGHTERS WILL PROVIDE TRANSPORTATION AND AID IN CARE ONCE DISCHARGED. PATIENT REPORTS RECEIVING [facility] SERVICES AND IS PERMITTED WITH 4-5 HRS/DAILY. PATIENT REPORTS ADEQUATE FRIEND AND FAMILY SUPPORT. PATIENT REPORTS REGULARLY MEETING WITH PCP AND LAST VISIT WITH PCP ON 12/20/21. PATIENT REPORTS BEING PROACTIVE IN HER CARE AND REPORTS SEVERAL UPCOMING DR APPOINTMENTS WITH ONCOLOGIST ON FEBRUARY 12 AND ENROLLMENT MANAGEMENT VICE PRESIDENT ON 02/16. SW SPOKE WITH PATIENT ON THE IMPORTANCE OF FOLLOW UP CARE, PATIENT ACKNOWLEDGED AND PROVIDED ENVIRONMENTAL SYSTEMS COORDINATOR WITH PERMISSION TO MAKE FOLLOW UP APPT WITH PCP. PATIENT REPORTS NO BARRIERS IN ACQUIRING MEDICATION AND RECEIVES MEDICATION FROM [facility] WHEN NEEDED. PATIENT REPORTS BEING AMBULATORY WITH ASSISTANCE. PATIENT REPORTS DME THAT INCLUDE THE USE ON O2, NEBULIZER, WALKER, SHOWER CHAIR, AND GLUCOMETER. SW INQUIRED ON ANY ADDITION RESOURCES NEEDED HOWEVER, THE PATIENT DECLINED AT THIS TIME. SW WILL OUTREACH TO PCP TO SCHEDULE FOLLOW UP APPT. SW WILL FOLLOW UP NEEDED
[2022-01-26 16:00] VITALS: BP 120/66
--- NOTE | 2022-01-26 16:14 | NUR ---
RECEIVED NEW ORDERS FROM DR ROSS. PT MADE AWARE. URINE SPECIMEN COLLECTED AND SENT TO LAB.
[2022-01-26] MEDS: INSULIN NPH HUM/REG INSULIN HM 100 UNIT/ML 10 ML VIAL SUBQ SCH (16:30)
[2022-01-26 18:49] LABS: APPEARANCE,URINE CLEAR (CLEAR); BILIRUBIN,URINE NEGATIVE (NEGATIVE); BLOOD, URINE NEGATIVE (NEGATIVE); COLOR,URINE YELLOW (YELLOW); LEUKOCYTE ESTERASE ,URINE NEGATIVE (NEGATIVE); NITRITE, URINE NEGATIVE (NEGATIVE); PH,URINE 5.5 (5.0-9.0); UGLUCOSE 3+ (NEGATIVE)
--- NOTE | 2022-01-26 19:20 | NUR ---
ENDORSED PT TO TECHNICIAN TERMINAL AND REPEATER NURSE. PT IN STABLE CONDITION
--- NOTE | 2022-01-26 19:27 | NUR ---
PT PRESENTS SITTING IN BED AWAKE ALERT AND COOPERATIVE, ANTERIOR AUSCULTATION REVEALED BS COARSE CRACKLES THROUGHOUT ALL LUNG DEWEY, STRONG PRODUCTIVE COUGH, SPONTANEOUSLY EXPECTORATING SMALL GREEN THICK PHLEGM. NO SIGNS OF RESPIRATORY DISTRESS NOTED AT THIS TIME. PT IS CURRENTLY SATING 98% ON 2LPM NC. ADMINISTERED HHN TX VIA SVN PLUS MASK WILL CONTINUE TO MONITOR.
--- NOTE | 2022-01-26 19:34 | NUR ---
received report of pt in stable condition.
--- NOTE | 2022-01-26 20:00 | NUR ---
RECEIVED REPORT AT BEDSIDE.PT IS AWAKE,ALERT AND ORIENTED X4.RESP.UNLABORED W/O2 AT 2L/NC.LUNGS DIMINISHED.NO C/O PAIN AND/OR SOB AT THIS TIME.IVF OF NS AT 50ML/H INFUSING WELL.CALL LIGHT IN REACH.WILL CONT.MONITORING.
[2022-01-26 20:52] VITALS: BP 119/66
--- NOTE | 2022-01-26 21:30 | NUR ---
BF=045.COVERED PER SLIDING SCALE.NO C/O PAIN AND/OR SOB NOW.VS STABLE.
[2022-01-27] MEDS: MORPHINE SULFATE 2 MG/ML SYR IVP PRN ×5 (02:33→20:37)
--- NOTE | 2022-01-27 03:27 | NUR ---
HAD GENERALIZED PAIN.MEDICATED.WILL REASSESS PER PROTOCOL.
[2022-01-27 04:00] VITALS: BP 131/78
--- NOTE | 2022-01-27 04:50 | NUR ---
VS STABLE.RESP.UNLABORED W/O2 AT 2L/NC.IVF OF 500ML NS X1 TIME FINISHED.NOW IS ON SL.NO C/O PAIN NOW.WILL CONT.MONITORING.CALL LIGHT WITHIN REACH.
[2022-01-27] MEDS: ALBUTEROL SULFATE/IPRATROPIU 3 ML SOL IH PRN (05:37)
--- NOTE | 2022-01-27 06:08 | NUR ---
ZC=[id number].WILL COVER ACCORDING TO SLIDING SCALE ALSO WILL GIVE INSULIN 70/30 10 UNITS PER ORDER.HAD C/O SOB,RESP TX GIVEN BY RT. NOW NO SOB NOTED.
[2022-01-27] MEDS: INSULIN NPH HUM/REG INSULIN HM 100 UNIT/ML 10 ML VIAL SUBQ SCH ×3 (06:39→16:30)
[2022-01-27] MEDS: INSULIN LISPRO SLIDING SCALE 100 UNITS/ML VIAL SUBQ PRN ×2 (06:39→21:11)
[2022-01-27] MEDS: BLOOD GLUCOSE MONITORING 1 DEV DEV FS SCH ×4 (06:40→21:07)
[2022-01-27 07:18] LABS: HEMATOCRIT 34.3 % (36-48); HEMOGLOBIN 10.9 g/dL (12.0-16.0); LYMPHOCYTES # (AUTO) 1.1 K/uL (2.5-16.5); LYMPHOCYTES % (AUTO) 8.8 % (20.5-51.1); MEAN CORPUSCULAR HEMOGLOBIN 28 pg (27-31); MEAN CORPUSCULAR HGB CONC 32 g/dL (33-37); MEAN CORPUSCULAR VOLUME 88.1 fL (80-94); MONOCYTES # (AUTO) 0.5 K/uL (0.8-1.0); MONOCYTES % (AUTO) 3.8 % (1.7-9.3); NEUTROPHILS % (AUTO) 87.4 % (42.2-75.2); PLATELET COUNT (AUTO) 363 K/uL (140-450); RED BLOOD CELL COUNT(AUTO) 3.89 MIL/uL (4.20-5.40); RED CELL DISTRIBUTION WIDTH 17.9 % (11.6-13.7); WHITE BLOOD COUNT (AUTO) 12.6 K/uL (4.8-10.8)
[2022-01-27 07:39] LABS: CARBON DIOXIDE 28.8 mmol/L (21-32); CREATININE 0.8 mg/dL (0.6-1.3); POTASSIUM 3.8 mmol/L (3.5-5.1)
[2022-01-27] MEDS: ALBUTEROL SULFATE/IPRATROPIU 3 ML SOL IH SCH ×4 (07:42→20:15)
--- NOTE | 2022-01-27 08:00 | NUR ---
RECEIVED ENDORSEMENT FROM PM SHIFT NURSE. PT STABLE STAY IN BED, PIV LFA 22G SALINE LOCK INTACT. WILL CONTINUE TO MONITOR
[2022-01-27] MEDS ORDERED: methylPREDNISolone SS 40 MG/ML VIAL IVP SCH (09:00)
[2022-01-27] MEDS: MONTELUKAST SODIUM 10 MG TAB PO SCH (09:18)
[2022-01-27] MEDS: AZITHROMYCIN 250 MG TAB PO SCH (09:19)
[2022-01-27] MEDS: DILTIAZEM 120 MG CAPER PO SCH (09:20)
[2022-01-27] MEDS: PANTOPRAZOLE 40 MG TABEC PO SCH (09:21)
[2022-01-27] MEDS: SERTRALINE 50 MG TAB PO SCH (09:21)
[2022-01-27] MEDS: APIXABAN 2.5 MG TAB PO SCH ×2 (09:30→20:58)
[2022-01-27] MEDS: INSULIN LANTUS 100 UNITS/ML 10 ML VIAL SUBQ SCH ×2 (09:34→21:04)
[2022-01-27] MEDS: LEVOFLOXACIN 500 MG/D5W PREMIX 100 ML IV SCH (10:00)
[2022-01-27 12:00] VITALS: BP 136/75
[2022-01-27] MEDS: HYDROcodone/APAP 5/325 MG 1 TAB TAB PO PRN ×2 (13:07→22:17)
[2022-01-27] MEDS: methylPREDNISolone SS 40 MG/ML VIAL IVP SCH ×2 (13:07→20:36)
--- NOTE | 2022-01-27 19:21 | NUR ---
ENDORSED PT TO PM SHIFT NURSE. PT STABLE STAY IN BED, PIV LFA 22G SALINE LOCK INTACT.
--- NOTE | 2022-01-27 19:22 | NUR ---
RECD. SITTING ON BED, AWAKE, A/OX4. RESPIRATION EVEN AND UNLABORED. 0N 02 AT 2 LITERS VIA N/C. COARSE LUNG SOUNDS NOTED ON BILATERAL AUSCULTATION. ON BREATHING TREATMENTS AND SOLU-MEDROL. VERBALIZED SHE SELDOM HAVE PHLEGM WHEN COUGHING. DENIES PAIN 0/10.
--- NOTE | 2022-01-27 19:30 | NUR ---
PATIENT PLAN OF CARE REVIEWED AND DISCUSSED WITH GURDEEP RITTER.
[2022-01-27 20:23] VITALS: BP 129/92
--- NOTE | 2022-01-27 20:58 | NUR ---
SCHEDULED MEDICATIONS FOR THE NIGHT ADMINISTERED. TOLERATED WELL.
--- NOTE | 2022-01-27 23:00 | NUR ---
SLEEPING COMFORTABLY IN BED, RESPIRATION EVEN AND UNLABORED. CALL LIGHT IN REACH.
[2022-01-28] MEDS: MORPHINE SULFATE 2 MG/ML SYR IVP PRN ×6 (01:51→21:19)
[2022-01-28] MEDS: BENZONATATE 100 MG CAPLF PO PRN (01:56)
--- NOTE | 2022-01-28 01:56 | NUR ---
WITH BOUTS SOF COUGHING, MEDICATED WITH TESSALON PERLES PER MD ORDER.
--- NOTE | 2022-01-28 02:55 | NUR ---
DECREASED COUGHING NOTED.
--- NOTE | 2022-01-28 03:45 | NUR ---
AWAKE IN BED, REQUESTED FOR HOT WATER AND PO PAIN MEDICATION.
[2022-01-28] MEDS: HYDROcodone/APAP 5/325 MG 1 TAB TAB PO PRN ×3 (03:46→18:37)
[2022-01-28] MEDS: methylPREDNISolone SS 40 MG/ML VIAL IVP SCH ×4 (05:00→21:09)
--- NOTE | 2022-01-28 05:00 | NUR ---
SITTING ON BED WATCHING TV. REQUESTED RT TO GIVE BREATHING TREATMENT.
--- NOTE | 2022-01-28 05:10 | NUR ---
IV INFILTRATED. TRIED TO INSERT NEW IV LINE. UNABLE TO PUT NEW IV LINE. PT IS HARDSTICK.
--- NOTE | 2022-01-28 06:00 | NUR ---
CHARGE NURSE MJ TRIED TO PUT IV LINE 6X. PATIENT IS HARDSTICK.
[2022-01-28 06:13] VITALS: BP 143/85
[2022-01-28] MEDS: INSULIN NPH HUM/REG INSULIN HM 100 UNIT/ML 10 ML VIAL SUBQ SCH ×3 (07:30→17:10)
--- NOTE | 2022-01-28 07:30 | NUR ---
ENDORSED TO AM NURSE FOR CONTINUITY OF CARE AND UNABLE TO GIVE SOLU MEDROL AT 0500, PATIENT IV INFILTRATED AND UNABLE TO PUT NEW IV LINE. CONDITION REMAIN STABLE.
[2022-01-28] MEDS: ALBUTEROL SULFATE/IPRATROPIU 3 ML SOL IH SCH ×4 (07:51→20:54)
[2022-01-28 08:00] VITALS: BP 134/88
[2022-01-28 08:06] LABS: BASOPHILS % (AUTO) 0.3 % (0.0-2.0); HEMATOCRIT 35.7 % (36-48); HEMOGLOBIN 12.1 g/dL (12.0-16.0); LYMPHOCYTES # (AUTO) 1.3 K/uL (2.5-16.5); LYMPHOCYTES % (AUTO) 11.2 % (20.5-51.1); MEAN CORPUSCULAR HEMOGLOBIN 31 pg (27-31); MEAN CORPUSCULAR HGB CONC 34 g/dL (33-37); MEAN CORPUSCULAR VOLUME 89.8 fL (80-94); MONOCYTES # (AUTO) 0.7 K/uL (0.8-1.0); MONOCYTES % (AUTO) 5.8 % (1.7-9.3); NEUTROPHILS # (AUTO) 9.6 K/uL (1.8-7.7); NEUTROPHILS % (AUTO) 82.7 % (42.2-75.2); PLATELET COUNT (AUTO) 357 K/uL (140-450); RED BLOOD CELL COUNT(AUTO) 3.98 MIL/uL (4.20-5.40); WHITE BLOOD COUNT (AUTO) 11.6 K/uL (4.8-10.8)
[2022-01-28 08:13] LABS: ANION GAP 12.3 (8-16); CARBON DIOXIDE 29.3 mmol/L (21-32); CREATININE 0.7 mg/dL (0.6-1.3); POTASSIUM 4.6 mmol/L (3.5-5.1)
[2022-01-28] MEDS: BLOOD GLUCOSE MONITORING 1 DEV DEV FS SCH ×4 (08:23→21:08)
[2022-01-28] MEDS: DILTIAZEM 120 MG CAPER PO SCH (08:42)
[2022-01-28] MEDS: APIXABAN 2.5 MG TAB PO SCH ×2 (08:45→21:30)
[2022-01-28] MEDS: MONTELUKAST SODIUM 10 MG TAB PO SCH (08:46)
[2022-01-28] MEDS: AZITHROMYCIN 250 MG TAB PO SCH (08:47)
[2022-01-28] MEDS: SERTRALINE 50 MG TAB PO SCH (08:47)
[2022-01-28] MEDS: PANTOPRAZOLE 40 MG TABEC PO SCH (08:48)
--- NOTE | 2022-01-28 09:00 | NUR ---
MEDICATED FOR PAIN ON SCALE 9 AND PAIN LEVEL NOW 3
[2022-01-28] MEDS: INSULIN LANTUS 100 UNITS/ML 10 ML VIAL SUBQ SCH ×2 (09:11→21:24)
[2022-01-28] MEDS: LEVOFLOXACIN 500 MG/D5W PREMIX 100 ML IV SCH (10:00)
--- NOTE | 2022-01-28 10:40 | NUR ---
NEW IV INSERTED ON LEFT FOREARM 20 G. NO S/S OF DISTRESS. PT TOLERATED WELL. ADMINISTERED PT MEDICATION PER MD ORDER AND REQUEST FROM MISSED DOSE DUE TO PT NOT HAVING IV ACCESS AT ADMINISTRATION TIME. PT ALSO COMPLAINED OF PAIN 6/10 AND WAS GIVEN MEDICATION PER MD ORDER. CALL LIGHT IS IN REACH. ALL SAFETY MEASURES IN PLACE
[2022-01-28 12:00] VITALS: BP 134/88
--- NOTE | 2022-01-28 13:30 | NUR ---
MEDICATED FOR PAIN LEVEL 9 AND THE PAIN NOW [id number]
--- NOTE | 2022-01-28 15:38 | NUR ---
01/28/2022 RD INITIAL ASSESSMENT COMPLETED. PLEASE REFER TO NUTRITION ASSESSMENT UNDER CARE ACTIVITY FOR ESTIMATED NUTRITIONAL NEEDS. CONTINUE WITH CONSISTENT CARB [address] TO FOLLOW-UP IN 5-7 DAYS PATIENT IS LOW RISK. MARIA R DAVID RD
[2022-01-29 00:33] VITALS: BP 120/66
--- NOTE | 2022-01-29 03:30 | NUR ---
PT C/O PAIN8/10. RECEIVED MORPHINE SULFATE 2MG IVP. WILL CONT. TO ,\MONITOR.
[2022-01-29] MEDS: MORPHINE SULFATE 2 MG/ML SYR IVP PRN ×4 (03:31→12:31)
[2022-01-29] MEDS: methylPREDNISolone SS 40 MG/ML VIAL IVP SCH (05:50)
[2022-01-29] MEDS: HYDROcodone/APAP 5/325 MG 1 TAB TAB PO PRN (05:54)
[2022-01-29 07:02] LABS: BASOPHILS % (AUTO) 0.2 % (0.0-2.0); HEMATOCRIT 36.6 % (36-48); HEMOGLOBIN 11.5 g/dL (12.0-16.0); LYMPHOCYTES # (AUTO) 0.8 K/uL (2.5-16.5); LYMPHOCYTES % (AUTO) 8.7 % (20.5-51.1); MEAN CORPUSCULAR HEMOGLOBIN 28 pg (27-31); MEAN CORPUSCULAR HGB CONC 32 g/dL (33-37); MEAN CORPUSCULAR VOLUME 88.8 fL (80-94); MONOCYTES # (AUTO) 0.3 K/uL (0.8-1.0); MONOCYTES % (AUTO) 3.3 % (1.7-9.3); NEUTROPHILS # (AUTO) 7.9 K/uL (1.8-7.7); NEUTROPHILS % (AUTO) 87.8 % (42.2-75.2); PLATELET COUNT (AUTO) 385 K/uL (140-450); RED BLOOD CELL COUNT(AUTO) 4.12 MIL/uL (4.20-5.40); RED CELL DISTRIBUTION WIDTH 18.1 % (11.6-13.7)
--- NOTE | 2022-01-29 07:20 | NUR ---
RECEIVED REPORT FROM NIGHT NURSE, PATIENT IN THE BATH ROOM.[id number]
[2022-01-29 07:40] LABS: ANION GAP 7.3 (8-16); CARBON DIOXIDE 32.5 mmol/L (21-32); CREATININE 0.8 mg/dL (0.6-1.3); POTASSIUM 4.8 mmol/L (3.5-5.1)
[2022-01-29] MEDS: ALBUTEROL SULFATE/IPRATROPIU 3 ML SOL IH SCH ×2 (08:01→11:00)
[2022-01-29] MEDS: BLOOD GLUCOSE MONITORING 1 DEV DEV FS SCH ×2 (08:02→11:56)
[2022-01-29] MEDS: INSULIN NPH HUM/REG INSULIN HM 100 UNIT/ML 10 ML VIAL SUBQ SCH (08:23)
[2022-01-29] MEDS: MONTELUKAST SODIUM 10 MG TAB PO SCH (08:34)
[2022-01-29] MEDS: PANTOPRAZOLE 40 MG TABEC PO SCH (08:34)
[2022-01-29] MEDS: APIXABAN 2.5 MG TAB PO SCH (08:36)
[2022-01-29] MEDS: DILTIAZEM 120 MG CAPER PO SCH (08:37)
[2022-01-29] MEDS: SERTRALINE 50 MG TAB PO SCH (08:37)
[2022-01-29] MEDS: AZITHROMYCIN 250 MG TAB PO SCH (08:37)
[2022-01-29] MEDS: INSULIN LANTUS 100 UNITS/ML 10 ML VIAL SUBQ SCH (09:48)
[2022-01-29] MEDS: LEVOFLOXACIN 500 MG/D5W PREMIX 100 ML IV SCH (10:29)
[2022-01-29] MEDS ORDERED: LEVO-315 PO (10:48)
[2022-01-29] MEDS ORDERED: MONT10TA35 PO (10:48)
[2022-01-29] MEDS ORDERED: PRED10TA5 PO (10:48)
[2022-01-29] MEDS ORDERED: PANT40EC56 PO (10:48)
[2022-01-29] MEDS ORDERED: FLUT1BLS3 IH (10:48)
[2022-01-29 13:28] VITALS: BP 150/92
--- NOTE | 2022-01-29 13:32 | NUR ---
SKYLAR PLANNING SALVADOR OUTREACHED TO PATIENTS PCP DR. MAYERS AT TO SCHEDULE FOLLOW UP APPT. MANAGER TRANSIT WAS UNABLE TO PROVIDE APPT 5-7 DAYS POST DISCHARGE. SW INFORMED MANAGER TRANSIT THAT [facility] CLIENTS ARE TO BE SEEN 5-7 POST DISCHARGE, HOWEVER, MANAGER TRANSIT REPORTED NO OPEN APPTS. APPT IS SCHEDULED FOR 02/15/22 AT 11AM FOR A PHONE CONSULT. SALVADOR PROVIDED PATIENT WITH APPOINTMENT INFORMATION THAT INCLUDED DATE, TIME AND INFORMATION.
--- NOTE | 2022-01-29 14:15 | NUR ---
patient discharged home, HL REMOVED ,DISCHARGED INSTRUCTION IS GIVEN, PATIENT WALKED WITH NURSE TO THE CAR WITHOUT DISCOMFORT.[id number]
== END 2022-01-29 14:20 | disposition home or self-care (01) | DRG 871 ==
LOC: MED 11:06 → MTU 14:16
PROVIDERS: ADMIT Hospitalist; ATTEND Hospitalist
DX: A41.9 Sepsis, unspecified organism (principal); J18.9 Pneumonia, unspecified organism; J96.21 Acute and chronic respiratory failure with hypoxia; C34.90 Malignant neoplasm of unspecified part of unspecified bronchus or lung; E87.1 Hypo-osmolality and hyponatremia; C79.9 Secondary malignant neoplasm of unspecified site; E11.65 Type 2 diabetes mellitus with hyperglycemia; K21.9 Gastro-esophageal reflux disease without esophagitis; I11.0 Hypertensive heart disease with heart failure; F17.210 Nicotine dependence, cigarettes, uncomplicated; I50.9 Heart failure, unspecified; I48.91 Unspecified atrial fibrillation; D64.9 Anemia, unspecified; J43.9 Emphysema, unspecified; E83.51 Hypocalcemia; Z20.822 Contact with and (suspected) exposure to COVID-19; E86.0 Dehydration; Z71.6 Tobacco abuse counseling; Z88.0 Allergy status to penicillin; Z88.1 Allergy status to other antibiotic agents; Z88.8 Allergy status to other drugs, medicaments and biological substances; Z79.899 Other long term (current) drug therapy; Z86.711 Personal history of pulmonary embolism; Z79.01 Long term (current) use of anticoagulants; Z82.49 Family history of ischemic heart disease and other diseases of the circulatory system; Z83.3 Family history of diabetes mellitus; Z83.49 Family history of other endocrine, nutritional and metabolic diseases; Z83.79 Family history of other diseases of the digestive system
CPT/HCPCS: 36415; 71045; 80048; 80053; 81003; 82948; 83605; 83735; 83880; 84100; 84484; 85025; 85379; 87040; 87081; 93005; 94640; 96365; 96375; 96376; 99291; J1815; J1956; J2270; J2920; J2930; J3475; Q0092

== ENCOUNTER 2022-02-18 13:04 | Inpatient (IN) | payer OTHER ==
[~2022-02-18] VITALS: Ht 157.5 cm; Wt 60.8 kg
[2022-02-18] MEDS: NACL 0.9% 1,000 ML IV SCH ×2 (01:45→22:00)
[~2022-02-18 13:04] MED LIST changes: -ACET-8386 PO; -ACET-9527 PO; +LEVO-315 PO; +METF-1061 PO; -METF1000 PO; +MONT10TA35 PO; +PANT40EC56 PO; +PRED10TA5 PO
[2022-02-18 13:05] VITALS: BP 178/86
[2022-02-18] MEDS ORDERED: ALBUTEROL SULFATE/IPRATROPIU 3 ML SOL IH ONE ×3 (13:09→20:51)
--- NOTE | 2022-02-18 13:10 | NUR ---
AMBULATED TO ER BED 6
--- NOTE | 2022-02-18 13:29 | NUR ---
DR. ARMAS AT BEDSIDE EVALUATING PATIENT.
[2022-02-18] MEDS ORDERED: AZITHROMYCIN 500 MG in DEXTROSE 5% 250 ML IV ONE (13:35)
[2022-02-18] MEDS ORDERED: ALBUTEROL 0.083% 2.5 MG/3 ML NEBU INH ONE (13:35)
[2022-02-18 13:54] LABS: BASOPHILS # (AUTO) 0.1 K/uL (0.00-0.22); EOSINOPHILS % (AUTO) 0.2 % (0.0-4.0); HEMATOCRIT 38.9 % (36-48); HEMOGLOBIN 12.3 g/dL (12.0-16.0); LYMPHOCYTES # (AUTO) 1.7 K/uL (2.5-16.5); LYMPHOCYTES % (AUTO) 20.1 % (20.5-51.1); MEAN CORPUSCULAR HEMOGLOBIN 27 pg (27-31); MEAN CORPUSCULAR HGB CONC 32 g/dL (33-37); MEAN CORPUSCULAR VOLUME 86.5 fL (80-94); MONOCYTES # (AUTO) 0.4 K/uL (0.8-1.0); MONOCYTES % (AUTO) 4.3 % (1.7-9.3); NEUTROPHILS # (AUTO) 6.5 K/uL (1.8-7.7); NEUTROPHILS % (AUTO) 74.4 % (42.2-75.2); PLATELET COUNT (AUTO) 457 K/uL (140-450); RED CELL DISTRIBUTION WIDTH 18.3 % (11.6-13.7); WHITE BLOOD COUNT (AUTO) 8.7 K/uL (4.8-10.8)
[2022-02-18 13:55] LABS: ALBUMIN 3.9 g/dL (3.4-5.0); ANION GAP 18.8 (8-16); CARBON DIOXIDE 24.3 mmol/L (21-32); CREATININE 1.1 mg/dL (0.6-1.3); POTASSIUM 4.1 mmol/L (3.5-5.1); TOTAL BILIRUBIN 0.3 mg/dL (0.0-1.0)
--- NOTE | 2022-02-18 14:00 | NUR ---
X-Ray at bedside.
[2022-02-18] MEDS: DEXAMETHASONE 10 MG/ML VIAL IVP ONE ×2 (14:04→14:06)
[2022-02-18] MEDS ORDERED: AZITHROMYCIN 500 MG INJ VIAL IV ONE (14:07)
[2022-02-18] MEDS ORDERED: MORPHINE SULFATE 4 MG/ML SYR IVP ONE (15:15)
[2022-02-18] MEDS ORDERED: POTASSIUM CHL 40 MEQ/ D5-1/2NS 1,000 ML IV ONE (15:45)
[2022-02-18] MEDS: BLOOD GLUCOSE MONITORING 1 DEV DEV FS SCH ×9 (15:45→23:45)
[2022-02-18] MEDS ORDERED: BLOOD GLUCOSE MONITORING 1 DEV DEV FS SCH (15:45)
[2022-02-18] MEDS ORDERED: INSULIN REGULAR, HUMAN 100 UNIT in NACL 0.9% 100 ML IV SCH ×6 (15:45)
[2022-02-18] MEDS ORDERED: DEXTROSE 50% 50 ML SYR IVP PRN ×2 (15:45)
--- NOTE | 2022-02-18 16:28 | NUR ---
Patient will be admitted to care of DR. CHAVARRIA. Admited to ICU. Will go to room 8. Belongings list completed. Report to CAROL AND KEM ANGULO.
[2022-02-18] MEDS: INSULIN REGULAR, HUMAN 100 UNIT in NACL 0.9% 100 ML IV SCH ×2 (16:30)
--- NOTE | 2022-02-18 16:30 | NUR ---
RECEIVED REPORT FROM ER NURSE. ADMITTED 67 Y/O FEMALE WITH A CC OF SOB. ADMITTING DX OF DKA AND COPD EXACERBATION. HX OF DM, LUNG CA, ASTHMA, COPD, PE ON ELIQUIS. MODIFIED CODE: DNI. PT IS AOX4, ABLE TO MAKE NEEDS KNOWN. WITH C/O GEN BODY PAIN 06/30, WILL MEDICATE WHEN DUE. NO SOB ON 2L NC, WITH EPISODES OF COUGH. PT IS AMBULATORY TO [facility], B/B CONTINENT. WITH LFA 22G AND RFA 20G. WILL START IVF AND INSULIN DRIP
[2022-02-18 16:54] LABS: FREE T4 (FREE THYROXINE) 0.73 ng/dL (0.76-1.46); THYROID STIMULATING HORMONE 1.38 uIU/mL (0.34-3.74)
[2022-02-18] MEDS ORDERED: MORPHINE SULFATE 2 MG/ML SYR IVP PRN (17:00)
[2022-02-18] MEDS: DEXT 5% / NACL 0.45% 1,000 ML IV SCH ×3 (17:00→22:45)
[2022-02-18 17:11] LABS: ANION GAP 17.7 (8-16); POTASSIUM 5.7 mmol/L (3.5-5.1)
[2022-02-18 17:12] LABS: MAGNESIUM 1.8 mg/dL (1.8-2.4); PHOSPHORUS 4.1 mg/dL (2.5-4.9)
[2022-02-18 17:31] VITALS: BP 131/67
[2022-02-18] MEDS: ALBUTEROL SULFATE/IPRATROPIU 3 ML SOL IH SCH ×2 (19:00→20:52)
--- NOTE | 2022-02-18 19:30 | NUR ---
Received pt. AOx4. Able to let needs known. pupils PERRLA. Productive cough present with scant amount of green sputum. Lungs sounds course on inhale/exhale. On 2LNC and maintaining O2 sat above 98%. Peripheral IV to L F/A 22G running NS at 200ml/hr and R F/A 20G with Insulin drip at 0.1 units/kg/hr. pt NPO. Ambulatory, continent and able to go to the bathroom. Skin intact. Denies pain at this time.Initial assessment complete. Safety measures in place.
[2022-02-18 20:00] VITALS: BP 116/55
[2022-02-18 20:27] LABS: CARBON DIOXIDE 23.3 mmol/L (21-32); CREATININE 1.1 mg/dL (0.6-1.3); POTASSIUM 4.3 mmol/L (3.5-5.1)
[2022-02-18 20:32] LABS: MAGNESIUM 1.9 mg/dL (1.8-2.4); PHOSPHORUS 2.6 mg/dL (2.5-4.9)
--- NOTE | 2022-02-18 20:45 | NUR ---
PT REQUEST FOR BREATHING TREATMENT TO FOLLOW HOME REGIMEN. DR.[address], RECEIVED ORDERS FOR DUONEB Q6H SCHEDULED AND DUONEB Q4H PRN FOR SOB.
--- NOTE | 2022-02-18 20:52 | NUR ---
Tx GIVEN BUT HAD TO OVERRIDE DUONEB IN [facility]YXIS ORDER WAS IN SYSTEM BUT NOT AVAILABLE AT THIS TIME FOR PT Tx GIVEN FOR SOB
[2022-02-18] MEDS: methylPREDNISolone SS 40 MG/ML VIAL IVP SCH (21:01)
[2022-02-18 22:00] VITALS: BP 108/39
[2022-02-19] VITALS (15 sets, daily range): BP systolic 105–148; BP diastolic 51–86
[2022-02-19] MEDS: MORPHINE SULFATE 2 MG/ML SYR IVP PRN ×6 (00:05→21:00)
[2022-02-19 00:30] LABS: ANION GAP 12.8 (8-16); CREATININE 0.8 mg/dL (0.6-1.3); POTASSIUM 4.8 mmol/L (3.5-5.1)
[2022-02-19 00:34] LABS: MAGNESIUM 1.8 mg/dL (1.8-2.4); PHOSPHORUS 2.2 mg/dL (2.5-4.9)
[2022-02-19] MEDS: BLOOD GLUCOSE MONITORING 1 DEV DEV FS SCH ×20 (00:45→21:03)
[2022-02-19] MEDS: ALBUTEROL SULFATE/IPRATROPIU 3 ML SOL IH SCH ×4 (01:00→19:00)
[2022-02-19] MEDS: NACL 0.9% 1,000 ML IV SCH ×4 (01:45→18:00)
[2022-02-19] MEDS: DEXT 5% / NACL 0.45% 1,000 ML IV SCH ×4 (02:05→17:46)
[2022-02-19 04:34] LABS: ANION GAP 12.9 (8-16); CARBON DIOXIDE 25.9 mmol/L (21-32); CREATININE 0.6 mg/dL (0.6-1.3); POTASSIUM 3.8 mmol/L (3.5-5.1)
[2022-02-19 04:35] LABS: MAGNESIUM 1.8 mg/dL (1.8-2.4); PHOSPHORUS 2.8 mg/dL (2.5-4.9)
[2022-02-19] MEDS: methylPREDNISolone SS 40 MG/ML VIAL IVP SCH ×3 (05:20→21:13)
[2022-02-19 05:34] LABS: BASOPHILS % (AUTO) 0.1 % (0.0-2.0); HEMOGLOBIN 10.4 g/dL (12.0-16.0); LYMPHOCYTES # (AUTO) 0.8 K/uL (2.5-16.5); LYMPHOCYTES % (AUTO) 10.9 % (20.5-51.1); MEAN CORPUSCULAR HEMOGLOBIN 28 pg (27-31); MEAN CORPUSCULAR HGB CONC 33 g/dL (33-37); MEAN CORPUSCULAR VOLUME 85.1 fL (80-94); MONOCYTES # (AUTO) 0.2 K/uL (0.8-1.0); MONOCYTES % (AUTO) 2.2 % (1.7-9.3); NEUTROPHILS # (AUTO) 6.4 K/uL (1.8-7.7); NEUTROPHILS % (AUTO) 86.8 % (42.2-75.2); PLATELET COUNT (AUTO) 395 K/uL (140-450); RED BLOOD CELL COUNT(AUTO) 3.76 MIL/uL (4.20-5.40); RED CELL DISTRIBUTION WIDTH 17.4 % (11.6-13.7); WHITE BLOOD COUNT (AUTO) 7.4 K/uL (4.8-10.8)
--- NOTE | 2022-02-19 07:20 | NUR ---
RECEIVED PT ALERT AND ORIENTED X4, ABLE TO FOLLOW COMMANDS. PT WITH NON PRODUCTIVE COUGH. SR ON MONITOR. ABD SOFT AND NONDISTENDED. CONTINENT BOTH BOWEL AND BLADDER. 20 GAUGE ON RFA INTACT AND PATENT INFUSING INSULIN DRIP @ 0.05 UNIT/KG/HR. 22 GAUGE ON LFA INTACT AND PATENT INFUSING D5 1/2 NS @ 200ML/HR. CALL LIGHT WITHIN REACH. SAFETY PRECAUTIONS IN PLACE.
--- NOTE | 2022-02-19 07:39 | NUR ---
LOC AWAKE AND ALERT VERBALLY RESPONSIVE GOOD CHEST RISE PATIENT NOTED WITH COUGHING EPISODE THAT IS NON PRODUCTIVE PRE AND DURING HHN THERAPY C/O NASAL DRYNESS WITH USE OF SUPPLEMENTAL OXYGEN POST HHN THERAPY ADDED HUMIDIFIER
[2022-02-19 08:08] LABS: T4 (THYROXINE) 5.2 ug/dL (4.5-12.0)
[2022-02-19] MEDS: AZITHROMYCIN 250 MG TAB PO SCH (08:21)
[2022-02-19 08:37] LABS: ANION GAP 15.6 (8-16); CARBON DIOXIDE 23.3 mmol/L (21-32); CREATININE 0.7 mg/dL (0.6-1.3); POTASSIUM 3.9 mmol/L (3.5-5.1)
--- NOTE | 2022-02-19 08:50 | NUR ---
PATIENT HAS BEEN SCREENED AND CATEGORIZED HIGH NUTRITION RISK. PATIENT WILL BE SEEN WITHIN 1-2 DAYS OF ADMISSION. REFERRAL RECEIVED FOR UNCONTROLLED DIABETES ANDREA HARDING RD
[2022-02-19 09:04] LABS: MAGNESIUM 1.8 mg/dL (1.8-2.4); PHOSPHORUS 2.7 mg/dL (2.5-4.9)
--- NOTE | 2022-02-19 11:29 | NUR ---
DC PLANNIN YRS OLD FEMALE PATIENT WAS ADMITTED FROM HOME WITH A DX OF DKA,COPD EXACERBATION. PATIENT HAS A HX OF DM, COPD, LUNG CA WITH METASTATIC DISEASE , ASTHMA, AND PE ON ELIQUIS. CXR SHOWED CHRONIC INTERSTITIAL LUNG DISEASE. RAPID COVID TEST NEGATIVE. ANION SHIRIN 18.8 12.9 AND 115.6.ADMINISTERED INSULIN DRIP, SOLU-MEDROL 40 MG IV , BREATHING TREATMENT, ON O2 2L/NC SATING 97% AND CONTINUED HOME MEDS. CONSULTED WITH PULMO. DC PLAN TO GO HOME WHEN STABLE CM TO FOLLOW
--- NOTE | 2022-02-19 12:25 | NUR ---
COSTUMER ASSISTANT AT BEDSIDE.
--- NOTE | 2022-02-19 12:50 | NUR ---
PT AWAKE ALERT AND ORIENTED. C/O PAIN. SEE PAIN ASSESSMENT. NO C/O SOB. NO SIGN OR SYMPTOMS OF HYPO/HYPERGLYCEMIA. CALL LIGHT WITHIN REACH.
[2022-02-19 13:36] LABS: MAGNESIUM 1.9 mg/dL (1.8-2.4)
[2022-02-19] MEDS: INSULIN REGULAR, HUMAN 100 UNIT in NACL 0.9% 100 ML IV SCH ×2 (15:37)
--- NOTE | 2022-02-19 15:53 | NUR ---
AUDIT CLERK AT BEDSIDE.
--- NOTE | 2022-02-19 16:08 | NUR ---
LOC AWAKE AND ALERT PATIENT REFUSED SCHEDULED ABG
--- NOTE | 2022-02-19 16:15 | NUR ---
SEEN AND EXAMINED BY DR. VICTOR. NEW ORDERS RECEIVED.
[2022-02-19 16:18] LABS: POTASSIUM 3.8 mmol/L (3.5-5.1)
[2022-02-19 16:20] LABS: ANION GAP 12.1 (8-16); CARBON DIOXIDE 25.7 mmol/L (21-32)
[2022-02-19] MEDS ORDERED: guaiFENesin/CODEINE 100/10MG 5 ML UDC PO PRN (16:20)
[2022-02-19 16:21] LABS: CREATININE 0.5 mg/dL (0.6-1.3); MAGNESIUM 1.7 mg/dL (1.8-2.4); PHOSPHORUS 2.4 mg/dL (2.5-4.9)
--- NOTE | 2022-02-19 16:28 | NUR ---
02/19/22 RD INITIAL ASSESSMENT COMPLETED PLEASE REFER TO NUTRITION ASSESSMENT UNDER CARE ACTIVITY FOR ESTIMATED NUTRITIONAL NEEDS. 1. WHEN/IF MEDICALLY APPROPRIATE, RECOMMEND [facility] 60GM DIET 2. MONITOR BLOOD GLUCOSE LEVELS 3. RD TO FOLLOW-UP 3-5 DAYS, MODERATE RISK ANDREA HARDING, RD
[2022-02-19] MEDS ORDERED: CALCIUM GLUC 1 GM/50 mL NS BAG 50 ML IV SCH (17:00)
--- NOTE | 2022-02-19 17:10 | NUR ---
DR. MARS EXAMINING PT AT BEDSIDE. NEW ORDERS RECEIVED.
--- NOTE | 2022-02-19 17:40 | NUR ---
LOC AWAKE AND ALERT SPUTUM CULTURE REQUIRED SPECIMEN CUP PLACED AT BEDSIDE EDUCATION PROVIDED
[2022-02-19] MEDS ORDERED: MAG SULF 2000 MG/WATER PREMIX 50 ML IV SCH (18:00)
--- NOTE | 2022-02-19 18:50 | NUR ---
DC PLANNING PATIENT IS A 67-YEAR-OLD FEMALE ADMITTED ON 02/18/2022 AT [facility]/ED DUE TO SHORTNESS OF BREATH FOR SEVERAL DAYS AND CHEST PAIN. PATIENT HAS HX. OF COPD, INSULIN-DEPENDENT DIABETES, ASTHMA, LUNG CANCER WITH METASTASIS, PE ON ELIQUIS. PATIENT HAS SEVERAL HOSPITALIZATIONS OVER ONE MONTH PERIOD. SW MET WITH PATIENT AT BEDSIDE TO DISCUSS AND GATHER PATIENT'S COLLATERAL INFORMATION. PATIENT WAS PLEASED TO SEE SW SINCE SHE HAS DONE HER ASSESSMENT IN PREVIOUS ADMISSIONS. PATIENT WAS AWAKE AND ALERT REPORTED BEEN BACK IN THE HOSPITAL SINCE HER LAST DISCHARGE ON 01/29/2022 DUE TO CONTINUE HAVING ISSUES WITH HER BREATHING AND TAKING ABOUT 6 TREATMENTS BUT NOT HAVING MUCH IMPROVEMENTS. PATIENT REPORTED LIVING AT HOME WITH HER DAUGHTER EMILY SHARMA IN HER APARTMENT IN [facility]. PATIENT REPORTED THAT EMILY SHARMA IS HER MEDICAL DECISION MAKER AND HER [employer] CAREGIVER. PATIENT FEELS SHE IS A GOOD SUPPORT SYSTEM AND HELPS HER A LOT EVEN THOUGHT PATIENT LIKES TO BE INDEPENDENT SHE CAN BE. PATIENT REPORTED HAVING ADVANCE DIRECTIVES INFORMATION ALREADY SHE GOT SINCE LAST ADMISSION AND WAS NOT INTERESTED ON GETTING INFORMATION PACKET PROVIDED BY SW AT THE TIME OF VISIT. PATIENT REPORTED HAVING A A WALKER, NEBULIZER,O2,WHEELCHAIR HER DME AT HOME. PATIENT REPORTED NOT HAVING ANY ISSUES WITH GETTING OR TAKING ANY MEDICATIONS. SW EXPLAINED TO PATIENT THE NEED TO FOLLOW UP WITH AN APPOINTMENT WITHIN 5-7 DAYS WITH HER PCP AFTER DC, PATIENT AGREED FOR SW TO MAKE HER FOLLOW UP APPOINTMENT. WITH HER PCP AFTER SHE DISCHARGES FROM [facility]. PATIENT STATED THAT HER DAUGHTER WILL BE ASSISTING HER WITH TRANSPORTATION BACK HOME WHEN SHE IS READY FOR DISCHARGE. SW WILL FOLLOW UP WITH PATIENT NEEDED. Addendum: 02/22/22 at 1233 by Pamela VEGA DC PLANNING TOXICOLOGY SUPERVISOR CALLED PATIENT'S PCP AT TO MAKE A FOLLOW UP APPOINTMENT FOR PATIENT AFTER HER DISCHARGE. SALVADOR SPOKE TO EDY BIGGS PROGRAMMING COORDINATOR WHO PROVIDED SCHEDULED APPOINTMENT FOR PATIENT ON 02/28/2022 AT 2:15PM. LOCATION FOR APPOINTMENT IS [address] [place] [address], Formerly [facility]. SALVADOR THANKED EDY AND ENDED THE CALL. SALVADOR MET WITH PATIENT AT BED SIDE TO INFORM PATIENT OF HER SCHEDULED APPOINTMENT WITH ASSIGNED PCP DR. LAURA DO WITH IN 7 DAYS OF HER DISCHARGE FROM [facility]. SW PROVIDED PATIENT WITH A NOTE LISTING TIME, DATE AND ADDRESS INFORMATION FOR HER FOLLOW UP APPOINTMENT. PATIENT AGREED TO ATTEND TO HER SCHEDULED APPOINTMENT AND THANKED THESE ELECTRONIC TEST TECHNICIAN FOR INFORMATION.
[2022-02-19] MEDS ORDERED: POTASSIUM PHOSPHATE 30 MM in NACL 0.9% 250 ML IV SCH (19:00)
--- NOTE | 2022-02-19 19:25 | NUR ---
ENDORSED TO HELP DESK INTERNSHIP NURSE [place] FOR CONTINUITY OF CARE.
--- NOTE | 2022-02-19 19:30 | NUR ---
Received pt. AOx4 and able to express needs. Lungs sounds course and on 2LNC and maintaining O2 sat above 97%. Peripheral IV to L F/A 22G running D5 1/2NS at 200ml/hr and R F/A 20G with Insulin drip at 0.1 units/kg/hr. Pt.on diabetic diet. Continent and independently goes to the restroom. Skin dry and intact. Denies pain at this time.Safety measures in place.
[2022-02-19] MEDS: INSULIN LANTUS 100 UNITS/ML 10 ML VIAL SUBQ SCH (20:00)
[2022-02-19 20:34] LABS: ANION GAP 12.2 (8-16); CREATININE 0.6 mg/dL (0.6-1.3); POTASSIUM 4.2 mmol/L (3.5-5.1)
[2022-02-19 20:39] LABS: PHOSPHORUS 2.7 mg/dL (2.5-4.9)
--- NOTE | 2022-02-19 21:00 | NUR ---
PT FINISHED 50% OF DINNER TRAY. SANDWICH REQUESTED AND PROVIDED.
[2022-02-19] MEDS: guaiFENesin 600 MG TABER PO SCH (21:14)
[2022-02-19 22:38] LABS: ANION GAP 23.5 (8-16); CREATININE 0.8 mg/dL (0.6-1.3); POTASSIUM 4.5 mmol/L (3.5-5.1)
[2022-02-19 23:19] LABS: APPEARANCE,URINE CLEAR (CLEAR); BILIRUBIN,URINE NEGATIVE (NEGATIVE); BLOOD, URINE NEGATIVE (NEGATIVE); COLOR,URINE YELLOW (YELLOW); LEUKOCYTE ESTERASE ,URINE NEGATIVE (NEGATIVE); NITRITE, URINE NEGATIVE (NEGATIVE); UGLUCOSE 3+ (NEGATIVE)
[2022-02-20] VITALS (8 sets, daily range): BP systolic 109–131; BP diastolic 61–77
[2022-02-20] MEDS: MORPHINE SULFATE 2 MG/ML SYR IVP PRN ×5 (01:05→21:40)
[2022-02-20] MEDS: ALBUTEROL SULFATE/IPRATROPIU 3 ML SOL IH SCH ×4 (01:30→21:12)
[2022-02-20] MEDS: methylPREDNISolone SS 40 MG/ML VIAL IVP SCH ×3 (05:00→20:57)
--- NOTE | 2022-02-20 07:20 | NUR ---
PT ON 2LNC SAT. 97%. STRONG COUGH, BUT PRODUCING LITTLE SPUTUM. TALKING AND WILL ASSESS LATER.
--- NOTE | 2022-02-20 07:30 | NUR ---
RECEIVED BEDSIDE REPORT FROM BOX FINISHER NURSE FOR CONTINUOS OF CARE, PT RESTING IN BED, NO DISTRESS NOTED, IV TO LEFT FA 22G PATENT INTACT, AND RIGHT FA 20G PATENT INTACT, SL. PT ON 2LPM O2 NC NO SOB SATURATING @ 98% AT THIS MOMENT. DENIES PAIN AT THIS MOMENT, INITIAL ASSESSMENT DONE, ALL SAFETY PRECAUTION MET, CALL LIGHT WITHIN REACH, WILL CONTINUE TO MONITOR.
--- NOTE | 2022-02-20 07:31 | NUR ---
REPORT GIVEN AT BEDSIDE TO DAY SHIFT RN FOR CONTINUITY OF CARE
[2022-02-20] MEDS: BLOOD GLUCOSE MONITORING 1 DEV DEV FS SCH ×4 (07:44→22:36)
[2022-02-20] MEDS: INSULIN LISPRO SLIDING SCALE 100 UNITS/ML VIAL SUBQ PRN ×4 (07:54→22:36)
[2022-02-20] MEDS: AZITHROMYCIN 250 MG TAB PO SCH (08:09)
[2022-02-20] MEDS: guaiFENesin 600 MG TABER PO SCH ×2 (08:10→20:56)
--- NOTE | 2022-02-20 08:10 | NUR ---
DUE MEDICATIONS ADMINISTERED, PT TOLERATED WELL, WILL CONTINUE TO MONITOR.
--- NOTE | 2022-02-20 10:39 | NUR ---
GAVE REPORT TO TELE NURSE ANALI MACKENZIE FOR CONTINUOUS OF CARE, PT WILL BE TAKEN TO ROOM 110B
--- NOTE | 2022-02-20 10:40 | NUR ---
RECEIVED ENDORSEMENT REPORT FROM ICU NURSE CHUCK VIA PHONE.
--- NOTE | 2022-02-20 10:45 | NUR ---
ICU NURSE WHEELED THE PT FROM ICU. PT ON STABLE CONDITION. A&04. ABLE TO RESPOND VERBALLY. RESPIRATIONS EVEN, WITH NOTED WHEEZING ON NC 2L SATING AT 97%. V/S UPON TRANSFER 98.5F, 127/59, 72, 20. PT ON FULL TIME STAFF INTERPRETER. SKIN IS WARM, DRY, INTACT. IV SITE AT LFA G22 AND RFA G20, BOTH ON SALINE LOCK. ORIENTED PT TO ROOM, ENVIRONMENT, UNIT AND ROUTINE. CALL LIGHT WITHIN REACH. SAFETY MEASURES IN PLACE. WILL CONTINUE TO MONITOR.
--- NOTE | 2022-02-20 11:13 | NUR ---
ERROR DOCUMENTED ON WRONG PATIENT
--- NOTE | 2022-02-20 11:13 | NUR ---
CALL BACK FROM DR. SANDY SAHU REVIEWED ABG SAMPLE REPORT TORBO: INCREASE PEEP TO [id number]; WEAN FIO2 TOLERATED; ABG ON 02/21/22 IN AM Addendum: 02/20/22 at 1122 by Lenny Croft RT REVIEWED VENTILATOR SETTINGS ORDERED BY DR. FRANKIE CARDENAS; REMOTE SENSING PROGRAM MANAGER DEVIATED FROM Vt 400ml TO 375ml (6ml/kg) DUE TO INCREASED PEAK PRESSURE
--- NOTE | 2022-02-20 12:18 | NUR ---
BLOOD GLUCOSE CHECK DONE. BS 125. NO INSULIN COVERAGE NEEDED.
--- NOTE | 2022-02-20 13:32 | NUR ---
PT COMPLAINTS OF PAIN 03/30. RN ADMINISTERED PRN MED ORDERED WELL THE IVP SOLU-MEDROL.
--- NOTE | 2022-02-20 16:05 | NUR ---
PT AMBULATES AROUND THE UNIT WEARING NON-SKID SOCKS. DRINKS AND EAT FOOD FROM HOME WHICH SHE CLAIMS ALL SUGAR FREE. PT REMOVED NASAL CANULA AND SATING 96%. NO DISTRESS NOTED. BREATHING EVEN AND UNLABORED.
--- NOTE | 2022-02-20 17:00 | NUR ---
BLOOD GLUCOSE CHECK DONE. BG - 446. PT IS ALERT AND ORIENTED. NO CHANGE IN LEVEL OF CONSCIOUSNESS. INFORMED DR. VICTOR. AWAITING FOR RESPONSE. INSTRUCTED PT TO DRINK MORE WATER. SAFETY MEASURES IN PLACE. CALL LIGHT WITHIN REACH.
--- NOTE | 2022-02-20 18:02 | NUR ---
DR VICTOR RESPONDED TO GIVE 20 UNITS OF HUMALOG INSULIN FOR BS446.
[2022-02-20] MEDS ORDERED: INSULIN LISPRO 100 UNITS/ML VIAL SUBQ SCH (18:30)
--- NOTE | 2022-02-20 19:10 | NUR ---
ENDORSED PT TO ASSISTANT STORE MANAGER OPERATIONS NURSE FOR CONTINUITY OF CARE. ALL NEEDS MET THROUGHOUT SHIFT. WILL CONTINUE TO MONITOR.
--- NOTE | 2022-02-20 21:20 | NUR ---
C/'O PAIN , BP WNL - WILL MEDICATE .
[2022-02-20] MEDS: INSULIN LANTUS 100 UNITS/ML 10 ML VIAL SUBQ SCH (22:36)
[2022-02-21] VITALS: BP 128/75
[2022-02-21] MEDS: ALBUTEROL SULFATE/IPRATROPIU 3 ML SOL IH SCH ×4 (01:18→19:10)
--- NOTE | 2022-02-21 02:00 | NUR ---
HIT THE CALL LIGHT - C/O PAIN - WILL MEDICATE - BP 134 /78 , O2 SAT WNL .
[2022-02-21] MEDS: MORPHINE SULFATE 2 MG/ML SYR IVP PRN ×6 (02:20→22:51)
--- NOTE | 2022-02-21 04:00 | NUR ---
ROUNDS , NO COMPLAIN MADE .
--- NOTE | 2022-02-21 06:00 | NUR ---
HIT THE CALL LIGHT - C/O PAIN BACK PAIN - WILL MEDICATE - BP WNL , O2 SAT WNL .
[2022-02-21] MEDS: methylPREDNISolone SS 40 MG/ML VIAL IVP SCH ×3 (06:07→21:00)
[2022-02-21] MEDS: INSULIN LISPRO SLIDING SCALE 100 UNITS/ML VIAL SUBQ PRN ×4 (06:16→21:24)
--- NOTE | 2022-02-21 07:25 | NUR ---
RECEIVED REPORT FROM CLOTHING SORTER NURSE FOR CONTINUITY OF CARE. PT AWAKE IN BED, ALERT. BREATHING SYMMETRICAL ON 2L NC WITH SHALLOW BREATHS. LFA 22G ON SALINE LOCK, PER REPORT LAST BLOOD SUGAR 448 WITH 10U INSULIN COVERAGE GIVEN. NO C/O PAIN AT THIS TIME. CALL LIGHT WITHIN REACH. ALL SAFETY MEASURES IN PLACE.
--- NOTE | 2022-02-21 07:25 | NUR ---
ENDORSED - PT - AWAKE - STABLE .
[2022-02-21] MEDS: BLOOD GLUCOSE MONITORING 1 DEV DEV FS SCH ×4 (07:57→21:17)
[2022-02-21 08:00] VITALS: BP 138/72
[2022-02-21] MEDS: guaiFENesin 600 MG TABER PO SCH ×2 (08:39→21:00)
[2022-02-21] MEDS: AZITHROMYCIN 250 MG TAB PO SCH (08:40)
--- NOTE | 2022-02-21 08:42 | NUR ---
SCHEDULED AM MEDICATIONS GIVEN ORDERED. PT NOTED WITH EPISODES OF INTERMITTENT COUGH, SHALLOW BREATHS BUT STATES FEELING SO MUCH BETTER. NO C/O PAIN AT THIS TIME. RFA 22G NO S/SX OF INFILTRATION NOTED.
--- NOTE | 2022-02-21 10:59 | NUR ---
PT ABLE TO AMBULATE WITH STEADY GAIT. ENCOURAGED TO ALWAYS CALL FOR ASSISTANCE WHEN NEEDED.
--- NOTE | 2022-02-21 11:32 | NUR ---
ACCUCHECK DONE, PT'S BLOOD SUGAR RESULT READ HI, CHECKED TWICE AND BOTH RESULTS WERE HI. LEFT MESSAGE TO DR VICTOR, AWAITING RESPONSE.
--- NOTE | 2022-02-21 11:40 | NUR ---
RECEIVED ORDER FROM DR VICTOR, TO GIVE 10 ADDITIONAL UNITS OF HUMALOG.
[2022-02-21] MEDS ORDERED: INSULIN LISPRO 100 UNITS/ML VIAL SUBQ SCH ×2 (11:49→14:04)
--- NOTE | 2022-02-21 11:57 | NUR ---
20U HUMALOG INSULIN GIVEN FOR BLOOD SUGAR RESULT "HI" WILL CONTINUE TO MONITOR PT
--- NOTE | 2022-02-21 13:00 | NUR ---
RE-ASSESSED PT'S BLOOD SUGAR, STILL READS HI. ALSO PT REFUSING IVP SOLU-MEDROL, RISK AND BENEFITS EXPLAINED. LEFT MESSAGE TO DR VICTOR
[2022-02-21 13:24] LABS: ANION GAP 14.4 (8-16); CARBON DIOXIDE 27.4 mmol/L (21-32); CREATININE 1.3 mg/dL (0.6-1.3); POTASSIUM 4.8 mmol/L (3.5-5.1)
--- NOTE | 2022-02-21 13:30 | NUR ---
PT WITH EPISODES OF TAKING OFF NC, DENIES SOB AT THIS TIME. STATES SHE'S FEELING BETTER.
--- NOTE | 2022-02-21 13:35 | NUR ---
DR VICTOR SEEN AND EXAMINED PT. ALSO MADE AWARE GLUCOSE IS 645, WITH ORDER FOR ONE TIME 10U IV REGULAR INSULIN.
[2022-02-21] MEDS ORDERED: INSULIN REGULAR, HUMAN 100 UNIT/ML VIAL IVP SCH (13:40)
--- NOTE | 2022-02-21 14:03 | NUR ---
PER PROTOCOL, WE ARE ONLY ABLE TO GIVE INSULIN IVP IF PATIENT IS IN ICU OR BECAUSE OF POTASSIUM LEVEL. DR VICTOR MADE AWARE, ORDER TO CHANGE TO HUMALOG 10U SUBQ ONE TIME. PT AWARE
--- NOTE | 2022-02-21 14:25 | NUR ---
02/21/22 RD FOLLOW UP COMPLETED PLEASE REFER TO NUTRITION ASSESSMENT UNDER CARE ACTIVITY FOR ESTIMATED NUTRITIONAL NEEDS. 1. CONTINUE CCHO 60 GM DIET TOLERATED 2. PROVIDED NUTRITION EDUCATION FOR DIABETES AND CARB COUNTING DIET WITH HANDOUTS 3. MONITOR BLOOD GLUCOSE LEVELS 4. RD TO FOLLOW-UP 2-3 DAYS, HIGH RISK ANDREA HARDING RD
[2022-02-21 16:00] VITALS: BP 125/59
--- NOTE | 2022-02-21 16:15 | NUR ---
PT STATED SHE TAKES ELIQUIS 5MG PO BID AT HOME, NO CURRENT ORDER AT THIS TIME. DR VICTOR MADE AWARE, ORDERED TO CONTINUE MEDICATION.
[2022-02-21] MEDS: ALBUTEROL SULFATE/IPRATROPIU 3 ML SOL IH PRN (16:25)
--- NOTE | 2022-02-21 19:16 | NUR ---
PATIENT WAS SEEN AND ASSESSED. PATIENT IS AWAKE, ALERT, AND ORIENTED. FOUND PT ON ROOM AIR WITH SPO2 94%. AUSCULTATION REVEALS BILATERAL COARSE WITH SOME EXPIRATORY WHEEZES BREATH SOUNDS. SCHEDULE TREATMENT GIVEN TO PATIENT, AND PT TOLERATED WELL WITHOUT ANY ADVERSE REACTION. PATIENT IS TOLERATING CURRENT TREATMENT/THERAPY WELL. PT IS IN NO RESPIRATORY DISTRESS AT THIS TIME. WILL CONTINUE TO MONITOR PATIENT.
--- NOTE | 2022-02-21 19:45 | NUR ---
Patient's Plan of Care was discussed and reviewed with POLICE COMMANDING OFFICER: CHRISTINA RITTER
--- NOTE | 2022-02-21 19:47 | NUR ---
ENDORSED PT TO CHEMICAL ENGRAVER NURSE, IN STABLE CONDITION
--- NOTE | 2022-02-21 19:49 | NUR ---
RECD. SITTING ON BED, AWAKE, A/OX4. RESPIRATION EVEN AND UNLABORED. WITH OCCASIONAL UNPRODUCTIVE COUGHING. IV SALINE LOCK AT THE RIGHT FOREARM G20, PATENT AND INTACT. AMBULATORY TO THE BR. DENIES PAIN 0/10.
[2022-02-21 20:00] VITALS: BP 123/66
[2022-02-21] MEDS: APIXABAN 2.5 MG TAB PO SCH (21:04)
--- NOTE | 2022-02-21 21:17 | NUR ---
SNACK FOR THE NIGHT GIVEN, ATE 100%.
[2022-02-21] MEDS: INSULIN LANTUS 100 UNITS/ML 10 ML VIAL SUBQ SCH (21:19)
--- NOTE | 2022-02-21 21:22 | NUR ---
PATIENT REFUSED SOLU-MEDROL, EDUCATED PATIENT IN REGARDS TO THE MEDICATION STILL REFUSED X2 WILL CONTINUE TO MONITOR.
[2022-02-21 22:48] VITALS: BP 122/68
--- NOTE | 2022-02-21 22:53 | NUR ---
PATIENT COMPLAINED OF CHEST PAIN NON-RADIATING 6/10 PRN PAIN MEDS GIVEN PER ORDER. WILL CONTINUE TO MONITOR
--- NOTE | 2022-02-22 | NUR ---
SLEEPING COMFORTABLY IN BED. RESPIRATION EVEN AND UNLABORED. CALL LIGHT IN REACH.
--- NOTE | 2022-02-22 | NUR ---
OFF OXYGEN, 02 SATURATION -94%. PATIENT IS STABLE.
[2022-02-22] MEDS: ALBUTEROL SULFATE/IPRATROPIU 3 ML SOL IH SCH ×3 (01:04→14:14)
--- NOTE | 2022-02-22 02:00 | NUR ---
AMBULATED TO THE BR TO VOID, BACK TO BED AFTER VOIDING. GAIT STEADY.
[2022-02-22] MEDS: MORPHINE SULFATE 2 MG/ML SYR IVP PRN ×4 (02:56→15:01)
--- NOTE | 2022-02-22 04:00 | NUR ---
COMPLAINT OF PAIN ATTENDED PROMPTLY, MEDICATED BY RN PER MD ORDER. VS STABLE.
[2022-02-22] MEDS: methylPREDNISolone SS 40 MG/ML VIAL IVP SCH (05:00)
--- NOTE | 2022-02-22 06:58 | NUR ---
PT COMPLAINED OF PAIN 6/10 PRN PAIN MEDS GIVEN PER ORDER. WILL CONTINUE TO MONITOR
--- NOTE | 2022-02-22 07:04 | NUR ---
CONDITION REMAIN STABLE. WILL ENDORSE TO AM SHIFT NURSE FOR CONTINUITY OF CARE.
--- NOTE | 2022-02-22 07:15 | NUR ---
RECEIVED REPORT FROM DRILL OPERATOR AUTOMATIC NURSE FOR CONTINUITY OF CARE. PT AWAKE IN BED, ALERT. BREATHING SYMMETRICAL ON 2L NC. NO C/O PAIN AT THIS TIME. RFA 20G ON SALINE LOCK. CALL LIGHT WITHIN REACH. ALL SAFETY MEASURES IN PLACE.
[2022-02-22] MEDS: BLOOD GLUCOSE MONITORING 1 DEV DEV FS SCH ×2 (07:37→11:27)
[2022-02-22] MEDS: INSULIN LISPRO 100 UNITS/ML VIAL SUBQ SCH ×2 (07:38→11:53)
[2022-02-22 08:00] VITALS: BP 136/73
[2022-02-22] MEDS: AZITHROMYCIN 250 MG TAB PO SCH (09:15)
[2022-02-22] MEDS: guaiFENesin 600 MG TABER PO SCH (09:15)
[2022-02-22] MEDS: APIXABAN 2.5 MG TAB PO SCH (09:21)
--- NOTE | 2022-02-22 09:46 | NUR ---
DR VICTOR MADE AWARE THAT PT'S BEEN REFUSING SOLU-MEDROL IVP, ALSO MADE AWARE THAT DR MARS, CONSULTING CHRONOGRAPH OPERATOR, RECOMMENDS TO D/C MEDICATION DUE TO HYPERGLYCEMIA. DR VICTOR STATED TO D/C SOLU-MEDROL. PT AWARE.
[2022-02-22] MEDS: ALBUTEROL SULFATE/IPRATROPIU 3 ML SOL IH PRN ×2 (10:52→12:20)
[2022-02-22] MEDS: INSULIN LISPRO SLIDING SCALE 100 UNITS/ML VIAL SUBQ PRN (11:53)
--- NOTE | 2022-02-22 12:00 | NUR ---
DR VICTOR MADE AWARE OF PT'S BLOOD SUGAR 273 STATED HE WILL BE HERE IN AN HOUR AND LIKELY FOR DISCHARGE. PT AMBULATORY, ABLE TO MAKE NEEDS KNOWN. DENIES SOB. NO C/O PAIN AT THIS TIME. FREQUENT ROUNDS DONE. ENCOURAGED TO ALWAYS CALL FOR ASSISTANCE
--- NOTE | 2022-02-22 14:12 | NUR ---
PT ASKED FOR BLOOD SUGAR TO BE CHECKED DUE TO FEELING SHAKY AND CLAMMY. CHECKED PT'S SUGAR NOTED 32, PT STILL ALERT, CONSCIOUS. GAVE ORANGE JUICE. PRN DEXTROSE GIVEN. WILL RE-ASSESS BLOOD SUGAR.
[2022-02-22] MEDS ORDERED: ATRMDI INH (14:22)
[2022-02-22] MEDS ORDERED: ALBU0.0912 IH (14:22)
--- NOTE | 2022-02-22 14:31 | NUR ---
RE-ASSESSED PT'S BLOOD SUGAR AND WENT UP TO 180. DR VICTOR AT STATION AND AWARE.
--- NOTE | 2022-02-22 15:25 | NUR ---
PT DISCHARGED TO HOME WITH BELONGINGS AND PAPERWORKS, PICKED UP BY DAUGHTER VIA PRIVATE VEHICLE. IV LINE REMOVED WITH CATHETER INTACT. DENIES PAIN AT THIS TIME. IN STABLE CONDITION
== END 2022-02-22 15:25 | disposition home or self-care (01) | DRG 637 ==
LOC: MED 13:04 → MTU 15:52 → MIC 16:10 → MTU 02-20 10:39
PROVIDERS: ADMIT Student in an Organized Health Care Education/Training Program; ATTEND Student in an Organized Health Care Education/Training Program
PROC: 5A0935A Assistance with Respiratory Ventilation, Less than 24 Consecutive Hours, High Flow/Velocity Cannula (ICD-10-PCS; principal; 2022-02-18)
DX: E11.10 Type 2 diabetes mellitus with ketoacidosis without coma (principal); J96.21 Acute and chronic respiratory failure with hypoxia; J44.1 Chronic obstructive pulmonary disease with (acute) exacerbation; C34.90 Malignant neoplasm of unspecified part of unspecified bronchus or lung; E83.51 Hypocalcemia; E11.65 Type 2 diabetes mellitus with hyperglycemia; Z20.822 Contact with and (suspected) exposure to COVID-19; Z86.711 Personal history of pulmonary embolism; Z79.01 Long term (current) use of anticoagulants; Z90.49 Acquired absence of other specified parts of digestive tract; Z88.0 Allergy status to penicillin; Z88.8 Allergy status to other drugs, medicaments and biological substances; Z79.899 Other long term (current) drug therapy; Z79.4 Long term (current) use of insulin; Z79.1 Long term (current) use of non-steroidal anti-inflammatories (NSAID)
CPT/HCPCS: 36415; 36600; 71045; 80048; 80053; 81003; 82803; 82947; 82948; 83036; 83735; 84100; 84436; 84439; 84443; 84479; 84484; 85025; 87081; 93005; 94640; 96365; 96375; 99291; J0456; J0610; J1100; J1815; J2270; J2920; J3475; J7030; J7613; Q0092

== ENCOUNTER 2022-04-04 10:30 | Inpatient (IN) | payer OTHER ==
[~2022-04-04] VITALS: Ht 157.5 cm; Wt 62.1 kg
[~2022-04-04 10:30] MED LIST changes: -LEVO-315 PO; -METF-1061 PO; +METF-1274 PO; -PANT40EC PO; -PRED10TA5 PO
[2022-04-04 10:48] VITALS: BP 157/92
[2022-04-04] MEDS ORDERED: ALBUTEROL SULFATE/IPRATROPIU 3 ML SOL IH ONE ×2 (10:56→11:00)
[2022-04-04] MEDS ORDERED: MAG SULF 2000 MG/WATER PREMIX 50 ML IV ONE (11:00)
[2022-04-04] MEDS ORDERED: methylPREDNISolone SS 125 MG/2 ML VIAL IVP ONE (11:00)
--- NOTE | 2022-04-04 11:11 | NUR ---
XR AT PT BEDSIDE
--- NOTE | 2022-04-04 11:11 | NUR ---
LAB AT PT BEDSIDE
[2022-04-04] MEDS ORDERED: MORPHINE SULFATE 4 MG/ML SYR IVP ONE (11:35)
[2022-04-04 11:44] LABS: BASOPHILS % (AUTO) 0.5 % (0.0-2.0); HEMATOCRIT 37.7 % (36-48); HEMOGLOBIN 11.9 g/dL (12.0-16.0); LYMPHOCYTES # (AUTO) 0.9 K/uL (2.5-16.5); LYMPHOCYTES % (AUTO) 10.3 % (20.5-51.1); MEAN CORPUSCULAR HEMOGLOBIN 27 pg (27-31); MEAN CORPUSCULAR HGB CONC 32 g/dL (33-37); MEAN CORPUSCULAR VOLUME 85.3 fL (80-94); MONOCYTES # (AUTO) 0.2 K/uL (0.8-1.0); MONOCYTES % (AUTO) 2.2 % (1.7-9.3); NEUTROPHILS # (AUTO) 7.5 K/uL (1.8-7.7); PLATELET COUNT (AUTO) 347 K/uL (140-450); RED BLOOD CELL COUNT(AUTO) 4.42 MIL/uL (4.20-5.40); RED CELL DISTRIBUTION WIDTH 17.9 % (11.6-13.7); WHITE BLOOD COUNT (AUTO) 8.6 K/uL (4.8-10.8)
[2022-04-04 12:45] LABS: ALBUMIN 3.8 g/dL (3.4-5.0); ANION GAP 22.4 (8-16); ASPARTATE AMINOTRANSFERASE 12 U/L (15-37); CARBON DIOXIDE 19.3 mmol/L (21-32); CHLORIDE 94 mmol/L (98-107); CREATININE 0.8 mg/dL (0.6-1.3); GFR ARICAN-AMERICAN 93 mL/min (>90); POTASSIUM 4.7 mmol/L (3.5-5.1); SODIUM SERUM 131 mmol/L (136-145); TOTAL BILIRUBIN 0.5 mg/dL (0.0-1.0); UREA NITROGEN, BLOOD 16 mg/dL (7-18)
[2022-04-04 12:48] LABS: GLUCOSE 451 mg/dL (74-106)
[2022-04-04] MEDS ORDERED: NACL 0.9% 1,000 ML IV ONE (12:50)
[2022-04-04] MEDS ORDERED: INSULIN REGULAR, HUMAN 100 UNIT in NACL 0.9% 100 ML IV ONE ×2 (12:50)
[2022-04-04] MEDS ORDERED: INSULIN REGULAR, HUMAN 100 UNIT in NACL 0.9% 100 ML IV SCH ×4 (12:59→13:50)
[2022-04-04] MEDS ORDERED: DEXTROSE 50% 50 ML SYR IVP PRN (13:50)
[2022-04-04] MEDS ORDERED: NACL 0.9% 1,000 ML IV SCH ×2 (13:50→14:55)
[2022-04-04] MEDS: BLOOD GLUCOSE MONITORING 1 DEV DEV FS SCH ×12 (14:02→23:56)
[2022-04-04 14:30] VITALS: BP 155/76
--- NOTE | 2022-04-04 14:30 | NUR ---
RECEIVED PT ALERT AND ORIENTED X4. PT NOTED WITH NON PRODUCTIVE DRY COUGH. NO C/O SOB. SINUS RHYTHM ON MONITOR. ABD SOFT AND NONDISTENDED. NPO AT THIS TIME DUE TO DKA PROTOCOL. CONTINENT BOTH BOWEL AND BLADDER. PERIPHERAL IV LEFT FOREARM 22 GAUGE INTACT AND PATENT INFUSING NS@100ML/HR AND INSULIN DRIP AT 5.77ML/HR. SAFETY PRECAUTIONS IN PLACE. CALL LIGHT WITHIN REACH.
[2022-04-04] MEDS ORDERED: MAG SULF 2000 MG/WATER PREMIX 50 ML IV PRN (14:55)
[2022-04-04] MEDS ORDERED: ACETAMINOPHEN 325 MG TAB PO PRN (14:55)
[2022-04-04] MEDS ORDERED: KCL 20 MEQ/WATER INJ PREMIX 200 ML IV PRN (14:55)
[2022-04-04] MEDS ORDERED: MAGNESIUM OXIDE 400 MG TAB PO PRN (14:55)
[2022-04-04] MEDS ORDERED: POTASSIUM CHLORIDE 10 MEQ TABER PO PRN (14:55)
[2022-04-04] MEDS ORDERED: HYDROcodone/APAP 5/325 MG 1 TAB TAB PO PRN (14:55)
--- NOTE | 2022-04-04 15:11 | NUR ---
Patient will be admitted to care of . Admited to ICU. Will go to room 3. Belongings list completed. Report to ADELE WIN.
[2022-04-04 16:00] VITALS: BP 130/77
[2022-04-04] MEDS: MORPHINE SULFATE 4 MG/ML SYR IVP PRN ×3 (16:08→22:35)
[2022-04-04] MEDS: DEXT 5% / NACL 0.45% 1,000 ML IV SCH ×2 (16:24→18:27)
--- NOTE | 2022-04-04 17:15 | NUR ---
DR. ROBLERO AT BEDSIDE EXAMINING PATIENT. PT REQUESTING FOR DNR STATUS.
[2022-04-04 18:00] VITALS: BP 135/72
--- NOTE | 2022-04-04 19:10 | NUR ---
ENDORSED TO SALES TEAM MANAGER NURSE FOR CONTINUITY OF CARE.
[2022-04-04 19:58] LABS: ANION GAP 10.1 (8-16); CARBON DIOXIDE 23.8 mmol/L (21-32); CREATININE 0.7 mg/dL (0.6-1.3); POTASSIUM 3.9 mmol/L (3.5-5.1)
[2022-04-04 20:00] VITALS: BP 135/72
--- NOTE | 2022-04-04 20:23 | NUR ---
CALLED REFERENCING PT'S REQUEST FOR MORPHINE STATING THE NORCO 5MG WONT TOUCH HER PAIN. SHE COMPLAINS OF PAIN IN HER CHEST, BACK AND ABDOMEN RATING THE PAIN AT 06/30. WAITING FOR CALL BACK FROM MD. Addendum: 04/04/22 at 2304 by Agency 11 RN RN DG. ANG CALLED BACK AT 2054 AND GAVE ORDERS FOR NORCO 7.5MG [id number].
[2022-04-04] MEDS: ALBUTEROL SULFATE/IPRATROPIU 3 ML SOL IH SCH ×2 (20:42→23:57)
[2022-04-04] MEDS ORDERED: HYDROcodone/APAP 7.5/325 MG 1 TAB PO PRN (20:45)
[2022-04-04] MEDS: methylPREDNISolone SS 40 MG/ML VIAL IVP SCH ×2 (21:00→21:11)
[2022-04-04] MEDS ORDERED: methylPREDNISolone SS 40 MG/ML VIAL IVP SCH (21:00)
--- NOTE | 2022-04-04 21:00 | NUR ---
PHARMACY CALLED TO REPORT A SECOND ORDER FOR MORPHINE ON THE DEC THAT'S ACTIVE UNTIL 07/12, SO THE NORCO7.5MG Q6 WAS CANCEL
[2022-04-04 22:00] VITALS: BP 122/63
[2022-04-04] MEDS: ONDANSETRON 4 MG/2 ML VIAL IVP PRN (22:35)
[2022-04-04 23:49] LABS: ANION GAP 7.3 (8-16); CARBON DIOXIDE 27.8 mmol/L (21-32); CREATININE 0.6 mg/dL (0.6-1.3); POTASSIUM 4.1 mmol/L (3.5-5.1)
[2022-04-05] VITALS (14 sets, daily range): BP systolic 106–139; BP diastolic 54–75
--- NOTE | 2022-04-05 00:18 | NUR ---
MESSAGE DR HOLLOWAY REGARDING LATEST ANION GAP 7.3; ORDERED TO DC INSULIN DRIP.NEW ORDERS RECEIVED.CARRIED OUT.ALAN ARRINGTON RN FOR PT AWARE
[2022-04-05] MEDS: NACL 0.45% 1,000 ML IV SCH ×3 (00:51→20:15)
[2022-04-05] MEDS: INSULIN LANTUS 100 UNITS/ML 10 ML VIAL SUBQ SCH ×2 (00:52→08:15)
[2022-04-05] MEDS: ALBUTEROL SULFATE/IPRATROPIU 3 ML SOL IH SCH ×6 (02:23→23:37)
[2022-04-05] MEDS: MORPHINE SULFATE 4 MG/ML SYR IVP PRN ×6 (02:24→23:19)
[2022-04-05] MEDS: ONDANSETRON 4 MG/2 ML VIAL IVP PRN ×2 (02:25→06:43)
[2022-04-05] MEDS: methylPREDNISolone SS 40 MG/ML VIAL IVP SCH ×3 (04:34→21:36)
--- NOTE | 2022-04-05 04:56 | NUR ---
PT REFUSED AM BATH STATING "I'M GOOD".
[2022-04-05 05:56] LABS: ANION GAP 10.8 (8-16); CARBON DIOXIDE 25.9 mmol/L (21-32); CREATININE 0.5 mg/dL (0.6-1.3); POTASSIUM 4.7 mmol/L (3.5-5.1)
[2022-04-05 06:09] LABS: BASOPHILS % (AUTO) 0.1 % (0.0-2.0); HEMATOCRIT 32.4 % (36-48); HEMOGLOBIN 10.4 g/dL (12.0-16.0); LYMPHOCYTES # (AUTO) 0.7 K/uL (2.5-16.5); LYMPHOCYTES % (AUTO) 8.5 % (20.5-51.1); MEAN CORPUSCULAR HEMOGLOBIN 27 pg (27-31); MEAN CORPUSCULAR HGB CONC 32 g/dL (33-37); MEAN CORPUSCULAR VOLUME 83.8 fL (80-94); MONOCYTES # (AUTO) 0.2 K/uL (0.8-1.0); MONOCYTES % (AUTO) 2.3 % (1.7-9.3); NEUTROPHILS # (AUTO) 7.1 K/uL (1.8-7.7); NEUTROPHILS % (AUTO) 89.1 % (42.2-75.2); PLATELET COUNT (AUTO) 336 K/uL (140-450); RED BLOOD CELL COUNT(AUTO) 3.87 MIL/uL (4.20-5.40); RED CELL DISTRIBUTION WIDTH 17.8 % (11.6-13.7)
--- NOTE | 2022-04-05 07:30 | NUR ---
Received report on pt. Pt AAOx4, able to verbalize needs. Pt noted with occasional cough, states it has been months. IV site left FA intact, patent, no infiltration noted with 1/2 NS @ 100 ml/hr. Pt also noted to start breakfast CCHO diet. Pt able to get up without assist to commode and have void+BM.
[2022-04-05] MEDS: BLOOD GLUCOSE MONITORING 1 DEV DEV FS SCH ×4 (08:19→21:08)
[2022-04-05] MEDS ORDERED: DEXTROSE 50% 50 ML SYR IVP PRN (09:00)
[2022-04-05] MEDS ORDERED: ENOXAPARIN 40 MG/0.4 ML SYR SUBQ SCH (09:00)
--- NOTE | 2022-04-05 09:21 | NUR ---
PATIENT HAS BEEN SCREENED AND CATEGORIZED HIGH NUTRITION RISK. PATIENT WILL BE SEEN WITHIN 1-2 DAYS OF ADMISSION. REFERRAL RECEIVED FOR UNCONTROLLED DIABETES ANDREA HARDING RD
[2022-04-05] MEDS: INSULIN LISPRO SLIDING SCALE 100 UNITS/ML VIAL SUBQ PRN ×3 (11:25→21:06)
[2022-04-05] MEDS ORDERED: BLOOD GLUCOSE MONITORING 1 DEV DEV FS SCH (11:30)
--- NOTE | 2022-04-05 12:07 | NUR ---
Report given to Monique ANGULO. Pt transfer to room 112A via wheelchair. IV intact, patent. All belongings present with pt.
--- NOTE | 2022-04-05 12:15 | NUR ---
GOT REPORT FROM ICU NURSE AND PT HEAR AT THIS TIME.[id number]
--- NOTE | 2022-04-05 13:03 | NUR ---
DC PLANNING: THE PATIENT PRESENTED WITH C/O INCREASING SOB, COUGH, GENERALIZED PAIN X 2 WEEKS. H/O COPD, ASTHMA, DM LUNG CA AND DVT, ON XARELTO AT HOME. PATIENT WITH AUDIBLE INSPIRATORY WHEEZES, ACCESSORY MUSCLE USE, GIVEN SOLU-MEDROL IV, DUONEBS, AND INSULIN SECONDARY TO GLUCOSE OF 451. NA+ 131, CO2 19.3, GAP 22.4, PH ON VBG 7.245, PCO2 37.6, HCO2 15.9. 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 STARTED ON ELIQUIS, IVF'S, SOLU MEDROL AND DUONEBS, INSULIN GTT DISCONTINUED. CM SPOKE WITH THE PATIENTS DAUGHTER EMILY BY PHONE AND CONFIRMED THE PATIENTS ADDRESS AND PHONE NUMBER. THE PATIENT LIVES IN AN UPSTAIRS APARTMENT WITH HER DAUGHTER AND 3 GRANDCHILDREN AGES 14-18. THE PATIENT IS INDEPENDENT WITH ADL'S AND AMBULATION AND IS CURRENTLY ON SERVICE WITH HOME HEALTH BUT EMILY COULDN'T REMEMBER THE NAME OF THE AGENCY. THE PATIENT HAS DME OF O2, SHOWER BENCH, FWW, WC AND HAND HELD NEB MACHINE. THE PATIENT IS INDEPENDENT WITH AMBULATION BUT SPENDS THE MAJORITY OF HER TIME LAYING IN BED SECONDARY TO C/O GENERALIZED PAIN. 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 SHE ALSO HAS NEW REFERRALS TO CARDIOLOGY, NEPHROLOGY AND ONCOLOGY BUT HAS NOT YET STARTED TREATMENT FOR HER LUNG CA. THE PLAN IS FOR THE PATIENT TO DC HOME WHEN CLINICALLY STABLE, CM WILL FOLLOW.
--- NOTE | 2022-04-05 14:00 | NUR ---
BS CHECKED C\O PROCEDURE NOT CHECKED ON TIME 1400 BS 225 COVERED WITH 4UNITE ORDERED. WILL CHECK AGAIN. PT PARACENTESIS OF 9 BOTTLE FULL ONE IS SENT TO THE LAB. PT NOW COMFORTABLE, FAMILY MEMBERS AT BED SIDE.[id number]
--- NOTE | 2022-04-05 14:35 | NUR ---
04/05/22 RD INITIAL ASSESSMENT COMPLETED PLEASE REFER TO NUTRITION ASSESSMENT UNDER CARE ACTIVITY FOR ESTIMATED NUTRITIONAL NEEDS. 1. CONTINUE CCHO 60GM DIET TOLERATED 2. MONITOR BLOOD GLUCOSE LEVELS -IF NOT CONTROLLED, RECOMMEND CCHO 45 GM DIET 3. PROVIDED NUTRITION EDUCATION WITH HANDOUTS FOR DIABETES AND CARB COUNTING 4. RD TO FOLLOW-UP 3-5 DAYS, MODERATE RISK ANDREA HARDING RD
--- NOTE | 2022-04-05 16:50 | NUR ---
BREATHING TREATMENT IS GIVEN BY RT ORDERED.[email or web address]
--- NOTE | 2022-04-05 19:30 | NUR ---
RECEIVED REPORT FROM NOE ANGULO PATIENT IN BED WITH SIDE RAILS UP X 2. PATIENT WAS ALERT AND ORIENTED X 4. NO NOTED PAIN/DISCOMFORT AT THIS TIME. NO NOTED RESPIRATORY DISTRESS. IV SITE CLEAN AND PATENT. PATIENT HAS APPROPRIATE AFFECT. KEPT CLEAN AND DRY. CALL LIGHT WAS PLACED WITHIN REACH FOR ASSISTANCE AND NEEDS. [email or web address]
--- NOTE | 2022-04-05 20:00 | NUR ---
REVIEWED PLAN OF CARE WITH GURDEEP MYERS. MARCUS
[2022-04-05] MEDS: APIXABAN 2.5 MG TAB PO SCH (21:21)
--- NOTE | 2022-04-05 23:20 | NUR ---
PT C/O 9/10 CHEST ,BACK AND ABDOMINAL PAIN. PT AWAKE LYING IN BED ON L SIDE WITH OCCASIONAL FACIAL GRIMACE. RECEIVED IV MSO4 4MG IVP. WILL CONTINUE TO MONITOR.
--- NOTE | 2022-04-05 23:45 | NUR ---
MSO4 EFFECTIVE. PT STATES PAIN NOW DOWN TO A 4. CAQLL LIGHT WITHIN REACH. WILL CONTINUE TO MONITOR.
--- NOTE | 2022-04-05 23:53 | NUR ---
PATIENT IN BED ASLEEP WITH SIDE RAILS UP X 2. HEAD OF BED ELEVATED FOR COMFORT AND FOR IMPROVEMENT TO RESPIRATORY BREATHING. NO NOTED PAIN/DISCOMFORT AT THIS TIME. NO NOTED RESPIRATORY DISTRESS. IV SITE CLEAN AND PATENT. [email or web address]
[2022-04-06] MEDS: ALBUTEROL SULFATE/IPRATROPIU 3 ML SOL IH SCH ×6 (00:05→20:00)
--- NOTE | 2022-04-06 03:04 | NUR ---
PATIENT IN BED ASLEEP WITH STABLE CONDITION. [email or web address]
--- NOTE | 2022-04-06 03:45 | NUR ---
PT C/O 06/30 CHEST ,BACK AND ABDOMINAL PAIN. RECEIVED MSO4 4MG IVP WITH RELIEF AFTER 20 MINUTES. AT 0410 PAIN DOWN TO A 5. PT SITTING ON BED BREATHING TREATMENT INFUSING PER RESPIRATORY THERAPIST. WILL CONTINUE TO MONITOR.
[2022-04-06] MEDS: MORPHINE SULFATE 4 MG/ML SYR IVP PRN ×5 (03:47→21:01)
[2022-04-06 04:00] VITALS: BP 137/95
[2022-04-06] MEDS: methylPREDNISolone SS 40 MG/ML VIAL IVP SCH ×3 (04:04→20:19)
[2022-04-06 06:11] LABS: BASOPHILS % (AUTO) 0.3 % (0.0-2.0); HEMATOCRIT 32.6 % (36-48); HEMOGLOBIN 10.5 g/dL (12.0-16.0); LYMPHOCYTES # (AUTO) 0.7 K/uL (2.5-16.5); LYMPHOCYTES % (AUTO) 8.2 % (20.5-51.1); MEAN CORPUSCULAR HEMOGLOBIN 27 pg (27-31); MEAN CORPUSCULAR HGB CONC 32 g/dL (33-37); MEAN CORPUSCULAR VOLUME 84.2 fL (80-94); MONOCYTES # (AUTO) 0.2 K/uL (0.8-1.0); MONOCYTES % (AUTO) 2.6 % (1.7-9.3); NEUTROPHILS # (AUTO) 7.4 K/uL (1.8-7.7); NEUTROPHILS % (AUTO) 88.9 % (42.2-75.2); PLATELET COUNT (AUTO) 329 K/uL (140-450); RED BLOOD CELL COUNT(AUTO) 3.88 MIL/uL (4.20-5.40); RED CELL DISTRIBUTION WIDTH 18.7 % (11.6-13.7); WHITE BLOOD COUNT (AUTO) 8.3 K/uL (4.8-10.8)
[2022-04-06 06:16] LABS: ANION GAP 11.8 (8-16); CARBON DIOXIDE 26.5 mmol/L (21-32); CREATININE 0.9 mg/dL (0.6-1.3); POTASSIUM 5.3 mmol/L (3.5-5.1)
--- NOTE | 2022-04-06 06:30 | NUR ---
CALLED THE ADMINISTRATIVE SERVICES SPECIALIST MD FOR CRITICAL LAB VALUES. PATIENT BLOOD SUGAR WAS NOTED AT 489 AND ACCUCHECK WAS NOTED AT 515. AWAITING DR GONZALEZ TO CALL BACK AND ADVISE ON THIS MATTER. [email or web address]
[2022-04-06] MEDS: INSULIN LISPRO SLIDING SCALE 100 UNITS/ML VIAL SUBQ PRN ×4 (06:44→20:29)
[2022-04-06] MEDS: BLOOD GLUCOSE MONITORING 1 DEV DEV FS SCH ×4 (06:46→20:27)
[2022-04-06] MEDS: NACL 0.45% 1,000 ML IV SCH ×2 (06:48→16:22)
--- NOTE | 2022-04-06 06:50 | NUR ---
CALLING THE BIOINFORMATICIST SERVICE TO PAGE DR GONZALEZ FOR ADVISE TO BLOOD SUGAR AT 489 AND ACCUCHECK AT 515. ANSWERING SERVICES STATED THAT HE IS NOT ANSWERING SO THEY WILL SENT OUT ANOTHER MESSAGE. [email or web address]
[2022-04-06] MEDS: INSULIN LANTUS 100 UNITS/ML 10 ML VIAL SUBQ SCH (07:35)
--- NOTE | 2022-04-06 07:37 | NUR ---
ENDORSED TO MADDIE ANGULO THE NEW ORDERS THE CRITICAL LAB VALUES. PATIENT IS ON A BREATH TREATMENT AND NEW ORDER FOR LANTUS WAS GIVEN. RECHECK WILL BE DONE BY AM SHIFT NURSE IN ONE HOUR. [email or web address]
--- NOTE | 2022-04-06 07:37 | NUR ---
RECEIVED REPORT FROM NIGHTSHIFT NURSE FOR CONTINUITY OF CARE. PLAN OF CARE DISCUSSED. PT CURRENTLY AWAKE AND RECEIVING BREATHING TREATMENT VIA RT. PT IS A/OX4, ON 2L NC, LUNG SOUNDS WERE COARSE CRACKLES BILATERALLY THROUGHOUT, WITH WHEEZING ON THE LEFT LOBE THROUGHOUT. PT HAS RATTLING COUGH, WHICH SHE COMPLAINED OF PAIN 9/10 IN CHEST, RADIATING TO ABDOMEN AND BACK. PT IS ABLE TO AMBULATE INDEPENDENTLY, AND CONTINENT OF THE BOWEL AND BLADDER. PT WAS GIVEN 35 UNITS OF LANTUS VIA NIGHTSHIFT NURSE FOR CRITICAL GLUCOSE OF 515. MD CARLISLE.
[2022-04-06 08:00] VITALS: BP 126/87
[2022-04-06] MEDS: APIXABAN 2.5 MG TAB PO SCH ×2 (08:34→20:18)
--- NOTE | 2022-04-06 08:46 | NUR ---
PT COMPLAINED OF PAIN 9/10 IN CHEST, RADIATING DOWN TO ABDOMEN AND BACK FROM COUGH. PRN MORPHINE GIVEN. Addendum: 04/06/22 at 1530 by Richelle Cates RN GLUCOSE RECHECK WAS 348.
--- NOTE | 2022-04-06 09:50 | NUR ---
PT VISUALLY ASSESSED. PT CURRENTLY AWAKE, AND STATED PAIN WAS REDUCED TO 3-4, AND "CALMING DOWN". PT IN STABLE CONDITION.
--- NOTE | 2022-04-06 15:20 | NUR ---
ROUNDED WITH DR. VICTOR FOR PT UPDATE. PER MD, LANTUS 35 UNITS WILL BE CHANGED TO NIGHT TIME. PT WAS ABLE TO AMBULATE STEADILY IN HALLWAY FOR SHORT DISTANCE, FROM NURSES' STATION TO END OF HALLWAY. PT IN STABLE CONDITION.
[2022-04-06 16:00] VITALS: BP 126/87
--- NOTE | 2022-04-06 16:54 | NUR ---
PT VISUALLY ASSESSED, PT COMPLAINED OF PAIN IN CHEST 8/. PRN MORPHINE GIVEN.
--- NOTE | 2022-04-06 19:39 | NUR ---
ENDORSED TO NIGHTSHIFT NURSE FLORES FOR CONTINUITY OF CARE. PLAN OF CARE DISCUSSED, PT IN STABLE CONDITION.
--- NOTE | 2022-04-06 19:40 | NUR ---
RECEIVED REPORT FROM AM NURSE. PATIENT RESTING COMFORTABLY IN BED ON ROOM AIR. NO ACUTE DISTRESS NOTED. RESPIRATION EVEN UNLABORED. NO COMPLAINTS OF PAIN AT THIS TIME. IVF 1/2 NS RUNNING AT 100 ML/HR ON THE LEFT FOREARM. SAFETY MEASURES IN PLACE. CALL LIGHT WITHIN REACH. Addendum: 04/07/22 at 0129 by Park Yu RN RN PATIENT ON 2L NC, TOLERATING WELL. NO SOB NOTED AT THIS TIME.
--- NOTE | 2022-04-06 20:19 | NUR ---
ADMINISTERED SCHEDULED MEDICATIONS ORDERED. TOLERATED WELL.
--- NOTE | 2022-04-06 20:45 | NUR ---
IV INFILTRATED, STARTED A NEW IV LINE ON THE RIGHT FOREARM WITH GOOD RETURN OF BLOOD. TOLERATED WELL.
--- NOTE | 2022-04-06 20:59 | NUR ---
COMPLAINED OF SEVERE BACK AND CHEST PAIN, MEDICATED.
[2022-04-07] VITALS: BP 121/71
[2022-04-07] MEDS: MORPHINE SULFATE 4 MG/ML SYR IVP PRN ×5 (01:25→22:22)
[2022-04-07] MEDS: NACL 0.45% 1,000 ML IV SCH ×3 (02:15→22:15)
[2022-04-07] MEDS: ALBUTEROL SULFATE/IPRATROPIU 3 ML SOL IH SCH ×5 (04:20→19:00)
[2022-04-07] MEDS: methylPREDNISolone SS 40 MG/ML VIAL IVP SCH ×2 (05:22→20:44)
[2022-04-07 06:09] LABS: BASOPHILS % (AUTO) 0.1 % (0.0-2.0); HEMATOCRIT 32.8 % (36-48); HEMOGLOBIN 10.6 g/dL (12.0-16.0); LYMPHOCYTES # (AUTO) 0.9 K/uL (2.5-16.5); LYMPHOCYTES % (AUTO) 12.5 % (20.5-51.1); MEAN CORPUSCULAR HEMOGLOBIN 27 pg (27-31); MEAN CORPUSCULAR HGB CONC 32 g/dL (33-37); MONOCYTES # (AUTO) 0.3 K/uL (0.8-1.0); MONOCYTES % (AUTO) 4.2 % (1.7-9.3); NEUTROPHILS # (AUTO) 6.3 K/uL (1.8-7.7); NEUTROPHILS % (AUTO) 83.2 % (42.2-75.2); PLATELET COUNT (AUTO) 348 K/uL (140-450); RED BLOOD CELL COUNT(AUTO) 3.91 MIL/uL (4.20-5.40); RED CELL DISTRIBUTION WIDTH 18.4 % (11.6-13.7); WHITE BLOOD COUNT (AUTO) 7.6 K/uL (4.8-10.8)
[2022-04-07] MEDS: BLOOD GLUCOSE MONITORING 1 DEV DEV FS SCH ×4 (06:34→20:52)
--- NOTE | 2022-04-07 06:34 | NUR ---
BLOOD SUGAR WAS 352, HUMALOG INSULIN ADMINISTERED ORDERED PER SLIDING SCALE.
[2022-04-07] MEDS: INSULIN LISPRO SLIDING SCALE 100 UNITS/ML VIAL SUBQ PRN ×3 (06:35→16:49)
[2022-04-07 06:58] LABS: ANION GAP 5.4 (8-16); CARBON DIOXIDE 29.5 mmol/L (21-32); CREATININE 0.6 mg/dL (0.6-1.3); POTASSIUM 4.9 mmol/L (3.5-5.1)
--- NOTE | 2022-04-07 07:30 | NUR ---
RECEIVED BEDSIDE REPORT FROM STAFF AIR DEFENSE OFFICER NURSE FOR CONTINUITY OF CARE. PT IS AWAKE AND ALERT. A&OX4. ON 2L O2 NC WITH BREATHING UNLABORED. AMBULATORY INDEPENDENTLY. CONTINENT OF THE BOWEL AND BLADDER. SKIN IS WARM, DRY, AND INTACT. IV IS INTACT AND PATENT. PT IS STABLE. PLAN OF CARE DISCUSSED.
--- NOTE | 2022-04-07 07:32 | NUR ---
ENDORSED PATIENT TO AM NURSE FOR CONTINUITY OF CARE. NO SOB.
[2022-04-07 08:00] VITALS: BP 133/74
--- NOTE | 2022-04-07 09:30 | NUR ---
PT RESTING ON BED WITH 2L OXYGEN BY NC. PT IS AWAKE AND ALERT, A &O X4, NO C/O OF CHEST PAIN AT THIS TIME. ALL SAFETY MEASURE IN PLACE, CALL LIGHT WITHIN REACH. WILL CONTINUE TO MONITOR.
--- NOTE | 2022-04-07 09:48 | NUR ---
PT STATES PAIN IN THE CHEST AND ABD AT SCALE 8/10. PT STATES PAIN ACHING. PT WAS GIVEN MORPHINE PRN FOR PAIN. BP WAS STABLE PRIOR TO ADMINISTRATION MEDICATION. WILL CONTINUE TO MONITOR.
[2022-04-07] MEDS: INSULIN LANTUS 100 UNITS/ML 10 ML VIAL SUBQ SCH ×3 (09:55→16:56)
[2022-04-07] MEDS: APIXABAN 2.5 MG TAB PO SCH ×2 (09:57→20:44)
--- NOTE | 2022-04-07 10:01 | NUR ---
(04/07/22) RD FOLLOW UP COMPLETED PLEASE REFER TO NUTRITION PROGRESS NOTE UNDER CARE ACTIVITY FOR ESTIMATED NUTRITION NEEDS. RD RECOMMENDATIONS: 1.CONTINUE CCHO 60GM DIET TOLERATED. 2.MONITOR SOLUMEDROL ADJUSTMENT AND BG LEVELS 2. RD TO FOLLOW-UP 3-5 DAYS, MODERATE RISK ULI JAIMES MS, RDN
[2022-04-07] MEDS: RACEPINEPHRINE 2.25% 13.5 MG/0.5 ML NEBU INH SCH ×2 (11:19→11:28)
--- NOTE | 2022-04-07 11:20 | NUR ---
ORDER FOR RACEPINPHINE GIVEN AT 0830 D/C AT 1000, UNABLE TO ACQUIRE MED FROM [facility] AT THIS TIME, WILL CONFER WITH RN AND GET NEW ORDER FOR MEDICATION PER MD ORDER
--- NOTE | 2022-04-07 11:30 | NUR ---
PT RESTING BED, AWAKE AND ALERT, CONTINUE ON 2L OXYGEN/ MIN VIA NC, NO C/O PAIN AT THIS TIME. ALL SAFETY MEASURE IN PLACE, CALL LIGHT WITHIN REACH, WILL CONTINUE TO MONITOR.
[2022-04-07] MEDS ORDERED: RACEPINEPHRINE 2.25% 13.5 MG/0.5 ML NEBU INH SCH (11:50)
--- NOTE | 2022-04-07 13:55 | NUR ---
PAIN C/O PAIN ON CHEST, BACK AND ABD, PAIN LEVEL AT 9/10, ADMINISTERED MORPHINE BY IN PUSH PRN PER MD ORDERED, PT TOLERATED WELL AT THIS TIME.
[2022-04-07] MEDS: guaiFENesin/CODEINE 100/10MG 5 ML UDC PO PRN ×2 (15:26→22:30)
--- NOTE | 2022-04-07 15:28 | NUR ---
PT C/O COUGHING, ADMINISTERED ROBITUSSIN 5ML PO PER MD ORDERED AT THIS TIME.
[2022-04-07 16:00] VITALS: BP_SYST 102; BP_SYST 120; BP_DIAS 68; BP_DIAS 73
--- NOTE | 2022-04-07 16:56 | NUR ---
PT'S BS READING IS 245. PT REFUSED LANTUS 35 UNITS FOR 1700 BECAUSE SHE ALREADY RECEIVED IT AT 0900 TODAY. PT CONCERNED IT WILL DROP BS TOO LOW. EDUCATED PT AND SLIDING SCALE WAS PROVIDED, 4 UNITS HUMALOG. PT STABLE AT THIS TIME.
--- NOTE | 2022-04-07 18:12 | NUR ---
PT C/O PAIN 9/10 ON HER CHEST, BACK AND ABD, ADMINISTERED MORPHINE VIA IV PUSH AT THIS TIME, PT TOLERATED WELL.
[2022-04-07] MEDS: ACETYLCYSTEINE 10% (100 MG/ML) 100 MG/ML VIAL INH SCH (19:00)
--- NOTE | 2022-04-07 19:20 | NUR ---
ENDORSED PT TO MESSENGER FLOORPERSON NURSE FOR CONTINUITY OF CARE. PT IS STABLE. PLAN OF CARE DISCUSSED.
--- NOTE | 2022-04-07 19:21 | NUR ---
RECEIVED REPORT FROM AM NURSE. PATIENT IS RESTING COMFORTABLY IN HIGH FOWLERS POSITION. O2 AT 2L NC TOLERATING WELL. NO SOB NOTED. NO COMPLAINTS OF PAIN. SAFETY MEASURES ARE IN PLACE. IVF 1/2 NS INFUSING AT 100 ML/HR. CALL LIGHT WITHINNREACH. WILL CONTINUE TO MONITOR PT.
--- NOTE | 2022-04-07 20:44 | NUR ---
SCHEDULED MEDICATIONS ADMINISTERED PER MD ORDER.
--- NOTE | 2022-04-07 20:53 | NUR ---
BLOOD SUGAR WAS 137, NO INSULIN COVERAGE NEEDED.
[2022-04-08] VITALS: BP 128/71
[2022-04-08] MEDS: MORPHINE SULFATE 4 MG/ML SYR IVP PRN ×5 (03:06→21:10)
[2022-04-08] MEDS: ALBUTEROL SULFATE/IPRATROPIU 3 ML SOL IH SCH ×6 (04:00→19:20)
[2022-04-08] MEDS: ACETYLCYSTEINE 10% (100 MG/ML) 100 MG/ML VIAL INH SCH ×3 (04:21→19:01)
[2022-04-08 06:34] LABS: BASOPHILS % (AUTO) 0.1 % (0.0-2.0); HEMATOCRIT 33.6 % (36-48); HEMOGLOBIN 10.9 g/dL (12.0-16.0); LYMPHOCYTES # (AUTO) 1.2 K/uL (2.5-16.5); LYMPHOCYTES % (AUTO) 15.1 % (20.5-51.1); MEAN CORPUSCULAR HEMOGLOBIN 27 pg (27-31); MEAN CORPUSCULAR HGB CONC 32 g/dL (33-37); MEAN CORPUSCULAR VOLUME 83.9 fL (80-94); MONOCYTES # (AUTO) 0.3 K/uL (0.8-1.0); MONOCYTES % (AUTO) 4.5 % (1.7-9.3); NEUTROPHILS # (AUTO) 6.2 K/uL (1.8-7.7); NEUTROPHILS % (AUTO) 80.3 % (42.2-75.2); PLATELET COUNT (AUTO) 358 K/uL (140-450); RED BLOOD CELL COUNT(AUTO) 4.01 MIL/uL (4.20-5.40); RED CELL DISTRIBUTION WIDTH 18.8 % (11.6-13.7); WHITE BLOOD COUNT (AUTO) 7.7 K/uL (4.8-10.8)
[2022-04-08] MEDS: BLOOD GLUCOSE MONITORING 1 DEV DEV FS SCH ×4 (06:36→21:17)
--- NOTE | 2022-04-08 06:36 | NUR ---
BLOOD SUGAR WAS 390, HUMALOG INSULIN ADMINISTERED ORDERED PER SLIDING SCALE.
[2022-04-08] MEDS: INSULIN LISPRO SLIDING SCALE 100 UNITS/ML VIAL SUBQ PRN ×4 (06:37→21:18)
[2022-04-08 06:57] LABS: ANION GAP 11.5 (8-16); CARBON DIOXIDE 30.1 mmol/L (21-32); CREATININE 0.8 mg/dL (0.6-1.3); POTASSIUM 5.6 mmol/L (3.5-5.1)
--- NOTE | 2022-04-08 07:29 | NUR ---
ENDORSED TO AM NURSE FOR CONTINUITY OF CARE. NO SOB.
--- NOTE | 2022-04-08 07:40 | NUR ---
RECEIVED BEDSIDE REPORT FROM UPHOLSTERER ASSEMBLY LINE NURSE FOR CONTINUITY OF CARE. PT IS AWAKE AND ALERT. A&OX4. ON 2L O2 NC WITH BREATHING UNLABORED. AMBULATORY INDEPENDENTLY. CONTINENT OF THE BOWEL AND BLADDER. SKIN IS WARM, DRY, AND INTACT. IV IS INTACT AND PATENT. DENIES PAIN AT MOMENT. PT IS STABLE. PLAN OF CARE DISCUSSED. SAFETY PRECAUTIONS IN PLACE. CALL LIGHT WITHIN REACH. WILL CONTINUE TO MONITOR.
[2022-04-08 08:00] VITALS: BP 122/72
[2022-04-08] MEDS: APIXABAN 2.5 MG TAB PO SCH ×2 (08:13→21:17)
[2022-04-08] MEDS: methylPREDNISolone SS 40 MG/ML VIAL IVP SCH ×2 (08:14→21:17)
[2022-04-08] MEDS: NACL 0.45% 1,000 ML IV SCH ×2 (08:20→18:23)
--- NOTE | 2022-04-08 08:40 | NUR ---
ALL SCHEDULED MEDS GIVEN. PT IS STABLE. NO DISTRESS NOTED. WILL CONTINUE TO MONITOR.
[2022-04-08] MEDS ORDERED: SODIUM ZIRCONIUM CYCLOSILICATE 10 GM POWD.PACK PO ONE (09:40)
--- NOTE | 2022-04-08 11:25 | NUR ---
CHECKED ON PATIENT. PT IS STABLE. NO DISTRESS NOTED. WILL CONTINUE TO MONITOR
[2022-04-08] MEDS: guaiFENesin/CODEINE 100/10MG 5 ML UDC PO PRN (12:09)
--- NOTE | 2022-04-08 12:09 | NUR ---
PT COMPLAINED OF STERNAL SUPERFICIAL CHEST PAIN 9/10 FROM THE COUGHING AND WHEEZING. ADMINISTERED PRN MEDS PER MD ORDERED.
[2022-04-08 16:00] VITALS: BP 120/77
--- NOTE | 2022-04-08 16:11 | NUR ---
PT COMPLAINED OF STERNAL SUPERFICIAL CHEST PAIN 9/10 FROM THE COUGHING AND WHEEZING. ADMINISTERED PRN MEDS PER MD ORDERED.
[2022-04-08] MEDS: INSULIN LANTUS 100 UNITS/ML 10 ML VIAL SUBQ SCH (17:19)
--- NOTE | 2022-04-08 19:42 | NUR ---
CHECKED ON PATIENT. PT IS STABLE. NO DISTRESS NOTED. WILL CONTINUE TO MONITOR
--- NOTE | 2022-04-08 19:43 | NUR ---
RECD. SITTING ON BED, WATCH TV. AWAKE, A/OX4. RESPIRATION EVEN AND UNLABORED. ON 02 AT 2 LITERS VIA N/C. AMBULATORY TO THE BATHROOM. SALINE LOCK AT THE RIGHT FOREARM G22, PATENT AND INTACT. DENIES PAIN 0/10.
[2022-04-08 20:00] VITALS: BP 140/69
--- NOTE | 2022-04-08 21:17 | NUR ---
SCHEDULED MEDICATIONS ADMINISTERED. TOLERATED WELL.
--- NOTE | 2022-04-09 | NUR ---
RESTING IN BED, STILL AWAKE. WATCHING TV. NO SOB NOTED.
[2022-04-09 01:22] VITALS: BP 143/66
[2022-04-09] MEDS: MORPHINE SULFATE 4 MG/ML SYR IVP PRN ×3 (01:25→10:35)
--- NOTE | 2022-04-09 01:25 | NUR ---
PT COMPLAINTS OF PAIN ON ABDOMEN AND CHEST AREA 8.5/10. PAIN MEDICATION ADMINISTERED ORDERED.
--- NOTE | 2022-04-09 02:25 | NUR ---
PT ASLEEP, NO FACIAL GRIMACING.
--- NOTE | 2022-04-09 02:30 | NUR ---
SITTING ON BED, AWAKE WATCHING TV. NO COMPLAINT OF PAIN 0/10.
[2022-04-09] MEDS: ALBUTEROL SULFATE/IPRATROPIU 3 ML SOL IH SCH ×3 (04:05→11:56)
[2022-04-09] MEDS: ACETYLCYSTEINE 10% (100 MG/ML) 100 MG/ML VIAL INH SCH ×2 (04:06→07:20)
[2022-04-09] MEDS: NACL 0.45% 1,000 ML IV SCH (04:15)
[2022-04-09 05:17] LABS: BASOPHILS % (AUTO) 0.2 % (0.0-2.0); HEMATOCRIT 35.8 % (36-48); HEMOGLOBIN 11.4 g/dL (12.0-16.0); LYMPHOCYTES % (AUTO) 9.8 % (20.5-51.1); MEAN CORPUSCULAR HEMOGLOBIN 27 pg (27-31); MEAN CORPUSCULAR HGB CONC 32 g/dL (33-37); MEAN CORPUSCULAR VOLUME 84.9 fL (80-94); MONOCYTES # (AUTO) 0.3 K/uL (0.8-1.0); MONOCYTES % (AUTO) 2.9 % (1.7-9.3); NEUTROPHILS # (AUTO) 8.8 K/uL (1.8-7.7); NEUTROPHILS % (AUTO) 87.1 % (42.2-75.2); PLATELET COUNT (AUTO) 402 K/uL (140-450); RED BLOOD CELL COUNT(AUTO) 4.22 MIL/uL (4.20-5.40); RED CELL DISTRIBUTION WIDTH 18.4 % (11.6-13.7); WHITE BLOOD COUNT (AUTO) 10.1 K/uL (4.8-10.8)
[2022-04-09 05:34] LABS: ANION GAP 11.3 (8-16); CARBON DIOXIDE 30.2 mmol/L (21-32); CREATININE 0.8 mg/dL (0.6-1.3); POTASSIUM 4.5 mmol/L (3.5-5.1)
[2022-04-09] MEDS: BLOOD GLUCOSE MONITORING 1 DEV DEV FS SCH ×2 (06:04→11:35)
[2022-04-09] MEDS: INSULIN LISPRO SLIDING SCALE 100 UNITS/ML VIAL SUBQ PRN ×2 (06:05→11:37)
--- NOTE | 2022-04-09 07:25 | NUR ---
CONDITION REMAIN STABLE. ENDORSED TO AM SHIFT NURSE FOR CONTINUITY OF CARE.
--- NOTE | 2022-04-09 07:26 | NUR ---
RECEIVED REPORT FROM MUSIC TEACHER NURSE FOR CONTINUITY OF CARE. PT IN BED WATCHING TV AT THIS TIME. RESPIRATIONS ARE EVEN AND UNLABORED. PT IS ON 2L 02 VIA NC. NO SIGNS OF DISTRESS NOTED. PT IS ALERT AND ORIENTED X4. ABLE TO FOLLOW COMMANDS, ABLE TO VERBALIZE NEEDS. PT IS ON CCHO DIET, LAST BOWEL MOVEMENT WAS THIS MORNING. PT HAS IV TO RFA, 22G. SKIN IS WARM, DRY, AND INTACT. CALL LIGHT WITHIN REACH. ALL SAFETY MEASURES IN PLACE. WILL CONTINUE TO MONITOR.
--- NOTE | 2022-04-09 07:32 | NUR ---
PT STATES CPT HURTS HER, WILL DC SCHEDULED CPT TX
[2022-04-09 08:00] VITALS: BP 138/71
[2022-04-09] MEDS ORDERED: ROBAC PO (08:59)
[2022-04-09] MEDS ORDERED: PRED20TA5 PO (08:59)
[2022-04-09] MEDS ORDERED: HYDR-5080 PO (08:59)
[2022-04-09] MEDS ORDERED: PRON INH (08:59)
[2022-04-09] MEDS ORDERED: MUC104 INH (08:59)
[2022-04-09] MEDS ORDERED: BENZ100C6 PO (08:59)
[2022-04-09] MEDS ORDERED: ALBU3SOL83 NEB (08:59)
[2022-04-09] MEDS: APIXABAN 2.5 MG TAB PO SCH (09:03)
--- NOTE | 2022-04-09 09:05 | NUR ---
ADMINISTERED SCHEDULED MEDICATION. EDUCATED PT ON MEDS ADMINISTERED. PT VERBALIZED UNDERSTANDING. WILL CONTINUE TO MONITOR.
[2022-04-09] MEDS: methylPREDNISolone SS 40 MG/ML VIAL IVP SCH (09:48)
[2022-04-09 10:33] VITALS: BP 138/71
--- NOTE | 2022-04-09 11:40 | NUR ---
PT BLOOD GLUCOSE WAS 296. COVERED WITH 6 UNITS INSULIN PER SLIDING SCALE. WILL CONTINUE TO MONITOR.
--- NOTE | 2022-04-09 12:08 | NUR ---
DISCHARGE ORDER IN PLACE. WENT OVER DISCHARGE PAPERWORK WITH PT. ANSWERED ALL QUESTIONS. PT SIGNED ALL PAPERWORK. PT STATES DAUGHTER WILL PICK HER UP AT 1330.
--- NOTE | 2022-04-09 12:30 | NUR ---
REMOVED IV. IV CATHETER IN TACT. PT DISCHARGED HOME WITH FAMILY. ALL BELONGINGS TAKEN UPON DISCHARGE.
== END 2022-04-09 12:25 | disposition home or self-care (01) | DRG 637 ==
LOC: MED 10:30 → MIC 14:11 → MTU 04-05 12:15
PROVIDERS: ADMIT Internal Medicine; ATTEND Internal Medicine
DX: E11.10 Type 2 diabetes mellitus with ketoacidosis without coma (principal); J96.21 Acute and chronic respiratory failure with hypoxia; J45.901 Unspecified asthma with (acute) exacerbation; J44.1 Chronic obstructive pulmonary disease with (acute) exacerbation; E11.65 Type 2 diabetes mellitus with hyperglycemia; Z20.822 Contact with and (suspected) exposure to COVID-19; Z85.118 Personal history of other malignant neoplasm of bronchus and lung; Z86.718 Personal history of other venous thrombosis and embolism; Z79.01 Long term (current) use of anticoagulants; Z88.0 Allergy status to penicillin; Z88.8 Allergy status to other drugs, medicaments and biological substances; Z79.899 Other long term (current) drug therapy; Z83.3 Family history of diabetes mellitus; Z82.49 Family history of ischemic heart disease and other diseases of the circulatory system; Z86.711 Personal history of pulmonary embolism; R91.1 Solitary pulmonary nodule
CPT/HCPCS: 36415; 71045; 80048; 80053; 82803; 82948; 84484; 85025; 87040; 93005; 94640; 96361; 96365; 96375; 97116; 99291; J1650; J1815; J2270; J2405; J2920; J2930; J3475; J7030; Q0092

== ENCOUNTER 2022-06-27 07:21 | Emergency (ER) | payer OTHER ==
[~2022-06-27] VITALS: Ht 157.5 cm; Wt 55.8 kg
[~2022-06-27 07:21] MED LIST changes: -ACET-1182 PO; +ALBU3SOL83 NEB; -DILT-135 PO; -FAMO-92 PO; +MUC104 INH; +PRED20TA5 PO
[2022-06-27 07:28] VITALS: BP 150/106
--- NOTE | 2022-06-27 07:36 | NUR ---
Patient being evaluated by DR PEREYRA at bedside.
[2022-06-27] MEDS ORDERED: KETOROLAC 60 MG/2 ML VIAL IM ONE (07:40)
[2022-06-27] MEDS ORDERED: ALBUTEROL SULFATE/IPRATROPIU 3 ML SOL IH ONE ×2 (07:40→10:45)
[2022-06-27] MEDS ORDERED: ALBUTEROL 0.083% 2.5 MG/3 ML NEBU INH ONE ×2 (07:40→10:45)
[2022-06-27] MEDS ORDERED: predniSONE 20 MG TAB PO ONE (07:40)
--- NOTE | 2022-06-27 07:52 | NUR ---
67 y/o F BIB self from home c/o SOB and chest pain x 4 days. Patient A&Ox4, ambulatory, reports symptoms starting at rest while at home; reports taking 2 Albuterol neb tx @ 0630 without relief. Reports chest pain 9/10, sharp/constant, radiating to back. Pt states recently admitted to [facility] for symptoms for 2 days. Denies n/v/d, fever, chills, trauma, falls, injury, urinary symptoms. Pt on home O2 2L via NC. SpO2 99% on 2L. process artist in place. Bed locked in lowest position, side rails x 1. PMH: copd, blood clots, lung ca, asthma, DM, gerd meds: insulin, metformin, ASA 81, certraline, flonase, singulair, eliquis allergies: pcn, ampicillin, doxylamine, unasyn sx: kidneys, cholescystectomy
--- NOTE | 2022-06-27 07:57 | NUR ---
EMT at bedside
--- NOTE | 2022-06-27 08:03 | NUR ---
RT at bedside for breathing tx
--- NOTE | 2022-06-27 08:10 | NUR ---
Blood work handed to CPT Sharon at ER bedside
--- NOTE | 2022-06-27 08:18 | NUR ---
RAD at bedside
[2022-06-27 08:50] LABS: BASOPHILS # (AUTO) 0.1 K/uL (0.00-0.22); EOSINOPHILS % (AUTO) 0.2 % (0.0-4.0); HEMATOCRIT 36.7 % (36-48); HEMOGLOBIN 11.7 g/dL (12.0-16.0); LYMPHOCYTES # (AUTO) 1.3 K/uL (2.5-16.5); LYMPHOCYTES % (AUTO) 16.8 % (20.5-51.1); MEAN CORPUSCULAR HEMOGLOBIN 27 pg (27-31); MEAN CORPUSCULAR HGB CONC 32 g/dL (33-37); MEAN CORPUSCULAR VOLUME 84.9 fL (80-94); MONOCYTES # (AUTO) 0.3 K/uL (0.8-1.0); MONOCYTES % (AUTO) 3.5 % (1.7-9.3); NEUTROPHILS # (AUTO) 6.1 K/uL (1.8-7.7); NEUTROPHILS % (AUTO) 78.5 % (42.2-75.2); PLATELET COUNT (AUTO) 416 K/uL (140-450); RED BLOOD CELL COUNT(AUTO) 4.33 MIL/uL (4.20-5.40); RED CELL DISTRIBUTION WIDTH 17.6 % (11.6-13.7); WHITE BLOOD COUNT (AUTO) 7.7 K/uL (4.8-10.8)
[2022-06-27 09:30] LABS: ALBUMIN 3.7 g/dL (3.4-5.0); ANION GAP 26.5 (8-16); CARBON DIOXIDE 15.9 mmol/L (21-32); CREATININE 0.8 mg/dL (0.6-1.3); POTASSIUM 4.4 mmol/L (3.5-5.1); TOTAL BILIRUBIN 0.5 mg/dL (0.0-1.0)
[2022-06-27] MEDS ORDERED: MORPHINE SULFATE 4 MG/ML SYR IVP ONE (09:50)
[2022-06-27] MEDS ORDERED: NACL 0.9% 1,000 ML IV ONE (09:50)
--- NOTE | 2022-06-27 10:00 | NUR ---
Patient states team cdl driver/transportation is Gogo Rock (daughter) [address] Friedman made aware.
[2022-06-27] MEDS ORDERED: ALBU0.0912 INH (11:03)
[2022-06-27] MEDS ORDERED: PRED20TA5 PO (11:03)
[2022-06-27] MEDS ORDERED: HYDR-5191 PO (11:12)
[2022-06-27 11:16] VITALS: BP 135/67
--- NOTE | 2022-06-27 11:16 | NUR ---
Patient discharged with v/s stable. Written and verbal after care instructions given and explained. Patient alert, oriented and verbalized understanding of instructions. Ambulatory with steady gait. All questions addressed prior to discharge. ID band removed. Patient advised to follow up with PMD. Rx of Prednisone, [place] 10-325, Albuterol sulfate given. Patient educated on indication of medication including possible reaction and side effects. Opportunity to ask questions provided and answered. Copies of CXR, blood work given to patient.
== END 2022-06-27 11:16 | disposition home or self-care (01) ==
LOC: MED 07:21
DX: J44.1 Chronic obstructive pulmonary disease with (acute) exacerbation (principal); R07.89 Other chest pain; E11.9 Type 2 diabetes mellitus without complications; K21.9 Gastro-esophageal reflux disease without esophagitis; F17.200 Nicotine dependence, unspecified, uncomplicated; Z88.0 Allergy status to penicillin; Z88.1 Allergy status to other antibiotic agents; Z88.8 Allergy status to other drugs, medicaments and biological substances; Z79.899 Other long term (current) drug therapy; Z85.118 Personal history of other malignant neoplasm of bronchus and lung; Z85.528 Personal history of other malignant neoplasm of kidney; Z79.4 Long term (current) use of insulin
CPT/HCPCS: 36415; 71045; 80053; 82948; 83880; 84484; 85025; 93005; 94640; 96361; 96372; 96374; 99285; J1885; J2270; J7030; J7512; J7613; Q0092

== ENCOUNTER 2022-10-24 10:41 | Inpatient (IN) | payer OTHER ==
[~2022-10-24] VITALS: Ht 157.5 cm; Wt 56.2 kg
[~2022-10-24 10:41] MED LIST changes: -BENZ100C6 PO
[2022-10-24 10:47] VITALS: BP 155/87
--- NOTE | 2022-10-24 10:50 | NUR ---
EKG DONE AT TRIAGE
[2022-10-24] MEDS ORDERED: MORPHINE SULFATE 4 MG/ML SYR IVP ONE (11:20)
[2022-10-24] MEDS ORDERED: methylPREDNISolone SS 125 MG/2 ML VIAL IVP ONE (11:20)
[2022-10-24] MEDS ORDERED: ONDANSETRON 4 MG/2 ML VIAL IVP ONE (11:20)
[2022-10-24] MEDS ORDERED: guaiFENesin 20 MG/ML UDC PO ONE (11:20)
[2022-10-24] MEDS ORDERED: ALBUTEROL SULFATE/IPRATROPIU 3 ML SOL IH ONE (11:20)
--- NOTE | 2022-10-24 11:29 | NUR ---
HHN THERAPY AND RESPIRATORY DRUGS GIVE ORDERED
[2022-10-24] MEDS ORDERED: guaiFENesin DM 200/20 MG-10 ML 10 ML UDC ONE (11:58)
[2022-10-24 12:01] LABS: BASOPHILS % (AUTO) 0.3 % (0.0-2.0); HEMATOCRIT 32.2 % (36-48); HEMOGLOBIN 9.9 g/dL (12.0-16.0); LYMPHOCYTES # (AUTO) 0.5 K/uL (2.5-16.5); LYMPHOCYTES % (AUTO) 4.4 % (20.5-51.1); MEAN CORPUSCULAR HEMOGLOBIN 26 pg (27-31); MEAN CORPUSCULAR HGB CONC 31 g/dL (33-37); MEAN CORPUSCULAR VOLUME 84.1 fL (80-94); MONOCYTES # (AUTO) 0.6 K/uL (0.8-1.0); MONOCYTES % (AUTO) 5.2 % (1.7-9.3); NEUTROPHILS # (AUTO) 11.3 K/uL (1.8-7.7); NEUTROPHILS % (AUTO) 90.1 % (42.2-75.2); PLATELET COUNT (AUTO) 309 K/uL (140-450); RED BLOOD CELL COUNT(AUTO) 3.83 MIL/uL (4.20-5.40); WHITE BLOOD COUNT (AUTO) 12.5 K/uL (4.8-10.8)
[2022-10-24] MEDS ORDERED: NACL 0.9% 1,000 ML IV ONE ×2 (12:20→13:35)
[2022-10-24 12:40] LABS: ALBUMIN 3.1 g/dL (3.4-5.0); ANION GAP 17.9 (8-16); CARBON DIOXIDE 27.2 mmol/L (21-32); POTASSIUM 5.1 mmol/L (3.5-5.1); TOTAL BILIRUBIN 0.3 mg/dL (0.0-1.0)
--- NOTE | 2022-10-24 12:58 | NUR ---
Patient ambulated to bed 04 with steady/even gait.
--- NOTE | 2022-10-24 13:29 | NUR ---
PT FOUND WITH CAN OF DIET COMAYRA. PT EDUCATED THAT SHE SHOULD NOT BE DRINKING THAT WITH BS OF 610. DR [place] AWARE
[2022-10-24] MEDS ORDERED: LEVOFLOXACIN 750 MG/D5W PREMIX 150 ML IV ONE (13:35)
[2022-10-24] MEDS ORDERED: INSULIN REGULAR, HUMAN 100 UNIT/ML VIAL IV ONE (13:35)
[2022-10-24 14:08] LABS: APPEARANCE,URINE CLEAR (CLEAR); BILIRUBIN,URINE NEGATIVE (NEGATIVE); BLOOD, URINE TRACE-I (NEGATIVE); COLOR,URINE YELLOW (YELLOW); LEUKOCYTE ESTERASE ,URINE NEGATIVE (NEGATIVE); NITRITE, URINE NEGATIVE (NEGATIVE); UGLUCOSE 3+ (NEGATIVE)
--- NOTE | 2022-10-24 14:08 | NUR ---
Abi huffman and sandro walked to lab and handed to CPT.
[2022-10-24] MEDS ORDERED: HYDR-5191 PO (14:10)
[2022-10-24] MEDS ORDERED: MAG SULF 2000 MG/WATER PREMIX 50 ML IV PRN (14:20)
[2022-10-24] MEDS ORDERED: HYDROcodone/APAP 5/325 MG 1 TAB TAB PO PRN (14:20)
[2022-10-24] MEDS ORDERED: ONDANSETRON 4 MG/2 ML VIAL IVP PRN (14:20)
[2022-10-24] MEDS ORDERED: MORPHINE SULFATE 2 MG/ML SYR IVP PRN (14:20)
[2022-10-24] MEDS ORDERED: KCL 20 MEQ/WATER INJ PREMIX 200 ML IV PRN (14:20)
[2022-10-24] MEDS ORDERED: MAGNESIUM OXIDE 400 MG TAB PO PRN (14:20)
[2022-10-24] MEDS ORDERED: ACETAMINOPHEN 325 MG TAB PO PRN (14:20)
[2022-10-24] MEDS ORDERED: POTASSIUM CHLORIDE 10 MEQ TABER PO PRN (14:20)
[2022-10-24 15:43] LABS: CREATININE 1.1 mg/dL (0.6-1.3)
[2022-10-24] MEDS ORDERED: AZITHROMYCIN 500 MG in DEXTROSE 5% 250 ML IV SCH (16:00)
[2022-10-24] MEDS ORDERED: INSULIN REGULAR, HUMAN 100 UNIT in NACL 0.9% 100 ML IV SCH ×2 (16:20)
[2022-10-24] MEDS ORDERED: BLOOD GLUCOSE MONITORING 1 DEV DEV FS SCH (16:20)
[2022-10-24] MEDS ORDERED: DEXTROSE 50% 50 ML SYR IVP PRN (16:20)
[2022-10-24 16:21] LABS: RBC,URINE 0-5 /HPF (0-5); WBC,URINE 0-5 /HPF (0-5)
[2022-10-24] MEDS: NACL 0.9% 1,000 ML IV SCH ×2 (17:40→22:20)
[2022-10-24] MEDS ORDERED: AZITHROMYCIN 500 MG INJ VIAL IV ONE (18:00)
--- NOTE | 2022-10-24 18:23 | NUR ---
PHARMACY WALKED OVER INSULIN DRIP. ACCUCHECK [address] GONZALEZ PAGED TO CLARIFY INSULIN DRIP ORDER. TORB ORDER TO NOT START DRIP AND TO GIVE 35 UNITS OF LANTUS NOW THEN DAILY. DOWNGRADE TO TELE.
[2022-10-24] MEDS ORDERED: INSULIN LANTUS 100 UNITS/ML 10 ML VIAL SUBQ SCH (18:30)
--- NOTE | 2022-10-24 18:30 | NUR ---
BLOOD SUGAR 289. INSULIN DRIP CANCELLED.
[2022-10-24] MEDS ORDERED: ALBUTEROL SULFATE/IPRATROPIU 3 ML SOL IH SCH (19:00)
[2022-10-24] MEDS: ALBUTEROL SULFATE/IPRATROPIU 3 ML SOL IH SCH ×2 (19:05→22:51)
[2022-10-24] MEDS: BUDESONIDE 0.5 MG/2 ML NEBU INH SCH (19:05)
--- NOTE | 2022-10-24 19:49 | NUR ---
Patient lying in bed, A/Ox4, chest rise and fall symmetrical, no s/s of distress, on monitor.
--- NOTE | 2022-10-24 20:55 | NUR ---
Patient lying in bed, A/Ox4, chest rise and fall symmetrical, no s/s of distress, on monitor.
[2022-10-24] MEDS: BLOOD GLUCOSE MONITORING 1 DEV DEV FS SCH (20:57)
[2022-10-24] MEDS ORDERED: methylPREDNISolone SS 40 MG in WATER STERILE 1 ML IV SCH (21:00)
[2022-10-24] MEDS: methylPREDNISolone SS 40 MG/ML VIAL IVP SCH (21:00)
[2022-10-24] MEDS: APIXABAN 2.5 MG TAB PO SCH (21:00)
--- NOTE | 2022-10-24 21:01 | NUR ---
Patient will be admitted to care of [facility]. Admited to Tele. Will go to room 106A. Belongings list completed. Report to Tele Nurse Robb RN. Tele Nurse Robb ANGULO verbalized understanding of report, no further questions. Addendum: 10/24/22 at 2114 by [id number] Patient will be admitted to care [facility]. Admited to Tele. Will go to room 106A. Belongings list completed. Report to Tele Nurse Robb RN. Tele Nurse Zamudio RN verbalized understanding of report, no further questions. Tele Nurse Robb RN verbally informed of BG results and stated he "will cover BG via orders."
--- NOTE | 2022-10-24 21:20 | NUR ---
RECEIVED PT FROM ER NURSE VIA TAHIRA. PATIENT IS AOX4. CAME IN WITH MIDSTERNAL CHEST PAIN, NO COMPLAIN OF PAIN AT THIS TIME. PIV ONRFA 22G INTACT AND PATENT. ON 2LNC WITH 100% O2 SATURATION. WILL CONTINUE TO MONITOR
[2022-10-24 21:28] LABS: ANION GAP 21.8 (8-16); CARBON DIOXIDE 20.7 mmol/L (21-32); CREATININE 0.8 mg/dL (0.6-1.3); POTASSIUM 4.5 mmol/L (3.5-5.1)
[2022-10-24] MEDS: MORPHINE SULFATE 2 MG/ML SYR IVP PRN (23:59)
[2022-10-25] VITALS: BP 124/65
[2022-10-25] MEDS: ALBUTEROL SULFATE/IPRATROPIU 3 ML SOL IH SCH ×6 (00:16→20:04)
[2022-10-25 00:27] LABS: ANION GAP 15.7 (8-16); CARBON DIOXIDE 22.3 mmol/L (21-32); CREATININE 0.6 mg/dL (0.6-1.3)
--- NOTE | 2022-10-25 01:00 | NUR ---
PATIENT ASLEEP, ALL SAFETY MEASURES IN PLACE, CALL LIGHT WITHIN EASY REACH
[2022-10-25 04:00] VITALS: BP 117/56
[2022-10-25 04:09] LABS: BASOPHILS % (AUTO) 0.5 % (0.0-2.0); EOSINOPHILS % (AUTO) 0.3 % (0.0-4.0); LYMPHOCYTES # (AUTO) 0.4 K/uL (2.5-16.5); LYMPHOCYTES % (AUTO) 3.7 % (20.5-51.1); MEAN CORPUSCULAR HEMOGLOBIN 26 pg (27-31); MEAN CORPUSCULAR HGB CONC 31 g/dL (33-37); MEAN CORPUSCULAR VOLUME 83.5 fL (80-94); MONOCYTES # (AUTO) 0.2 K/uL (0.8-1.0); MONOCYTES % (AUTO) 1.6 % (1.7-9.3); NEUTROPHILS # (AUTO) 9.2 K/uL (1.8-7.7); NEUTROPHILS % (AUTO) 93.9 % (42.2-75.2); PLATELET COUNT (AUTO) 304 K/uL (140-450); RED BLOOD CELL COUNT(AUTO) 3.48 MIL/uL (4.20-5.40); RED CELL DISTRIBUTION WIDTH 18.3 % (11.6-13.7); WHITE BLOOD COUNT (AUTO) 9.8 K/uL (4.8-10.8)
[2022-10-25 04:27] LABS: ALBUMIN 3.1 g/dL (3.4-5.0); ANION GAP 13.2 (8-16); CARBON DIOXIDE 22.9 mmol/L (21-32); CREATININE 0.6 mg/dL (0.6-1.3); POTASSIUM 5.1 mmol/L (3.5-5.1); TOTAL BILIRUBIN 0.3 mg/dL (0.0-1.0)
[2022-10-25] MEDS: MORPHINE SULFATE 2 MG/ML SYR IVP PRN ×3 (04:30→18:22)
[2022-10-25] MEDS ORDERED: ALBUTEROL SULFATE/IPRATROPIU 3 ML SOL IH PRN (05:30)
[2022-10-25] MEDS: NACL 0.9% 1,000 ML IV SCH (05:50)
[2022-10-25] MEDS: INSULIN LISPRO SLIDING SCALE 100 UNITS/ML VIAL SUBQ PRN ×2 (06:26→11:27)
[2022-10-25] MEDS: BLOOD GLUCOSE MONITORING 1 DEV DEV FS SCH ×3 (06:37→21:00)
[2022-10-25] MEDS: BUDESONIDE 0.5 MG/2 ML NEBU INH SCH ×2 (07:20→20:04)
[2022-10-25 08:00] VITALS: BP 103/55
[2022-10-25] MEDS ORDERED: INSULIN LANTUS 100 UNITS/ML 10 ML VIAL SUBQ SCH ×2 (09:00→21:00)
[2022-10-25] MEDS ORDERED: ENOXAPARIN 40 MG/0.4 ML SYR SUBQ SCH (09:00)
[2022-10-25] MEDS: methylPREDNISolone SS 40 MG/ML VIAL IVP SCH ×2 (09:30→20:32)
[2022-10-25] MEDS: APIXABAN 2.5 MG TAB PO SCH ×2 (09:32→20:34)
[2022-10-25] MEDS: MONTELUKAST SODIUM 10 MG TAB PO SCH (09:34)
[2022-10-25] MEDS: SERTRALINE 50 MG TAB PO SCH (09:34)
[2022-10-25] MEDS: PANTOPRAZOLE 40 MG TABEC PO SCH (09:34)
--- NOTE | 2022-10-25 10:43 | NUR ---
PATIENT HAS BEEN SCREENED AND CATEGORIZED HIGH NUTRITION RISK D/T DKA. PATIENT WILL BE SEEN WITHIN 1-2 DAYS OF ADMISSION. REVIEWED BY ANDREA HARDING RD
--- NOTE | 2022-10-25 11:00 | NUR ---
DC PLANNING SW MET WITH PT AT BEDSIDE TO COMPLETE ASSESSMENT. PT ALERT AND ORIENTED TO PROVIDE ALL OF HER OWN INFORMATION. PT REPORTS RESIDING IN A SECOND FLOOR APT WITH HER DAUGHTER AND THREE GRANDCHILDREN AT THAT ADDRESS LISTED ON FILE. PT IDENTIFIED EMILY SHARMA, DAUGHTER, EMERGENCY CONTACT. PT DENIED HAVING AD IN PLACE AND DECLINED AD OFFERED BY SW. PT REPORTS HAVING AD RESOURCE AT HOME. PT REPORTS MEETING WITH PCP DR KELSEY EVERY THREE MONTHS, LAST VISIT; OCT 11. PT REPORTS MEDICATION COMPLIANCE AND DENIES BARRIERS ACCESS TO NEEDED MEDICATIONS. PT REPORTS RECEIVING MEDICATION FROM [facility], WHEN NEEDED. PT REPORTS BEING AMBULATORY WITH DME ASSISTANCE; FWW, O2 AND NEBULIZER AND REQUIRES ASSISTANCE WITH ADL'S THAT FAMILY AIDS WITH. PT REPORTS RECEIVING IHSS HOURS OF 149 HRS PER MONTH. PT REPORTS IHSS CAREGIVER IS HER DAUGHTER, EMILY SHARMA. PT DENIES MH/العراقي, SNF AND HH HX. PT REPORTS HX OF DIABETES THAT IS NOT WELL MANAGED DUE TO HER COPD, PT REPORTS STEROIDS THROW OFF SUGARS AND SHE IS WORKING WITH PHYSICIAN TO CONTROL. PT REPORTS ADEQUATE FOOD IN THE HOME . PT REPORTS DC PLAN IS TO RETURN HOME WITH HER DAUGHTER PROVIDING TRANSPORTATION AND AIDING IN CARE. SW INQUIRED ON RESOURCES NEEDED, PT DECLINED. Addendum: 10/26/22 at 1507 by Maribel VEGA Amended: Links added.
[2022-10-25] MEDS: INSULIN LISPRO 100 UNITS/ML VIAL SUBQ SCH ×2 (11:28→16:30)
[2022-10-25 12:00] VITALS: BP 105/58
[2022-10-25] MEDS: ACETYLCYSTEINE 20% (200 MG/ML) 200 MG/ML VIAL INH SCH ×3 (14:47→20:04)
[2022-10-25] MEDS: LEVOFLOXACIN 250 MG/D5 PREMIX 50 ML IV SCH (14:49)
[2022-10-25] MEDS ORDERED: LEVOFLOXACIN 500 MG/D5W PREMIX 100 ML IV SCH (15:00)
[2022-10-25] MEDS: BENZONATATE 100 MG CAPLF PO PRN (15:04)
--- NOTE | 2022-10-25 16:41 | NUR ---
10/25/22 RD INITIAL ASSESSMENT COMPLETED PLEASE REFER TO NUTRITION ASSESSMENT UNDER CARE ACTIVITY FOR ESTIMATED NUTRITIONAL NEEDS. 1. CONTINUE CCHO 60GM DIET TOLERATED, RECOMMEND GLUCERNA 1XDAY TO HELP INCREASE PO INTAKE - GLUCERNA 1XDAY PROVIDES 220 KCALS AND 10 G PROTEIN DAILY 2. MONITOR BLOOD GLUCOSE LEVELS 3. PROVIDED NUTRITION EDUCATION WITH HANDOUTS FOR DIABETES 4. RD TO FOLLOW-UP 7 DAYS, LOW RISK REVIEWED BY ANDREA HARDING RD
[2022-10-25] MEDS: AZITHROMYCIN 500 MG in DEXTROSE 5% 250 ML IV SCH (18:00)
--- NOTE | 2022-10-25 19:45 | NUR ---
RECEIVED PT FROM AM NURSE FOR CONTINUITY OF CARE. PT IS STABLE
[2022-10-25 20:00] VITALS: BP 135/57
--- NOTE | 2022-10-25 20:04 | NUR ---
PT LAYING IN BED IN SUPINE POSITION, HOB ELEVATED, NO SIGNS OF RESPIRATORY DISTRESS NOTED AT THIS TIME PT IS CURRENT SPO2 96% ON 2L N/C, NO LABORED BREATHING AND NO USE OF ACCESSORY MUSCLES NOTED. ANTERIOR AUSCULTATIONS REVEALED RHONCHI BS THROUGHOUT ALL LUNG DEWEY, STRONG PERSISTENT PRODUCTIVE COUGH NOTED, ADMIN HHN TX WITH NO INCIDENT WILL CONTINUE TO MONITOR.
[2022-10-26] VITALS: BP 128/60
--- NOTE | 2022-10-26 | NUR ---
PATIENT ASLEEP, NO DISTRESS NOTED
[2022-10-26] MEDS: ACETYLCYSTEINE 20% (200 MG/ML) 200 MG/ML VIAL INH SCH ×6 (00:16→20:00)
[2022-10-26] MEDS: MORPHINE SULFATE 2 MG/ML SYR IVP PRN (02:49)
[2022-10-26 04:00] VITALS: BP 132/64
[2022-10-26] MEDS: ALBUTEROL SULFATE/IPRATROPIU 3 ML SOL IH SCH ×6 (04:51→23:00)
[2022-10-26] MEDS: BLOOD GLUCOSE MONITORING 1 DEV DEV FS SCH ×5 (06:02→20:51)
[2022-10-26] MEDS: INSULIN LISPRO 100 UNITS/ML VIAL SUBQ SCH ×3 (06:46→16:50)
[2022-10-26] MEDS: INSULIN LISPRO SLIDING SCALE 100 UNITS/ML VIAL SUBQ PRN ×4 (06:48→20:47)
[2022-10-26 06:57] LABS: BASOPHILS % (AUTO) 0.1 % (0.0-2.0); HEMOGLOBIN 9.4 g/dL (12.0-16.0); LYMPHOCYTES # (AUTO) 0.6 K/uL (2.5-16.5); LYMPHOCYTES % (AUTO) 6.6 % (20.5-51.1); MEAN CORPUSCULAR HEMOGLOBIN 26 pg (27-31); MEAN CORPUSCULAR HGB CONC 31 g/dL (33-37); MEAN CORPUSCULAR VOLUME 83.1 fL (80-94); MONOCYTES # (AUTO) 0.3 K/uL (0.8-1.0); MONOCYTES % (AUTO) 2.8 % (1.7-9.3); NEUTROPHILS # (AUTO) 8.3 K/uL (1.8-7.7); NEUTROPHILS % (AUTO) 90.5 % (42.2-75.2); PLATELET COUNT (AUTO) 365 K/uL (140-450); RED BLOOD CELL COUNT(AUTO) 3.62 MIL/uL (4.20-5.40); RED CELL DISTRIBUTION WIDTH 18.4 % (11.6-13.7); WHITE BLOOD COUNT (AUTO) 9.2 K/uL (4.8-10.8)
[2022-10-26] MEDS: BUDESONIDE 0.5 MG/2 ML NEBU INH SCH ×2 (07:15→19:30)
[2022-10-26 07:58] LABS: ALBUMIN 3.3 g/dL (3.4-5.0); CREATININE 0.7 mg/dL (0.6-1.3); TOTAL BILIRUBIN 0.2 mg/dL (0.0-1.0)
[2022-10-26 08:00] VITALS: BP 153/78
[2022-10-26] MEDS: methylPREDNISolone SS 40 MG/ML VIAL IVP SCH ×2 (08:50→20:50)
[2022-10-26] MEDS: APIXABAN 2.5 MG TAB PO SCH ×2 (08:51→20:50)
[2022-10-26] MEDS: SERTRALINE 50 MG TAB PO SCH (08:51)
[2022-10-26] MEDS: PANTOPRAZOLE 40 MG TABEC PO SCH (08:51)
[2022-10-26] MEDS: MONTELUKAST SODIUM 10 MG TAB PO SCH (08:51)
[2022-10-26] MEDS ORDERED: INSULIN LANTUS 100 UNITS/ML 10 ML VIAL SUBQ SCH (09:00)
[2022-10-26] MEDS: MORPHINE SULFATE 4 MG/ML SYR IVP PRN ×4 (10:47→23:11)
[2022-10-26 12:00] VITALS: BP 149/69
[2022-10-26] MEDS: LEVOFLOXACIN 250 MG/D5 PREMIX 50 ML IV SCH (14:05)
[2022-10-26 16:00] VITALS: BP 118/47
[2022-10-26] MEDS: AZITHROMYCIN 500 MG in DEXTROSE 5% 250 ML IV SCH (18:22)
--- NOTE | 2022-10-26 19:30 | NUR ---
RECEIVED REPORT FROM DAY SHIFT RN FOR CONTINUITY OF CARE. PT IS AAOX4 ON 2L NC. PT HAS RIGHT FOREARM 22 GAUGE SALINE LOCK. PT IS COMPLAINING OF SOB. RT WAS NOTIFIED. NO OTHER COMPLAINS. WILL CONTINUE TO MONITOR THE PT.
[2022-10-26 20:00] VITALS: BP 156/75
[2022-10-26] MEDS: INSULIN LANTUS 100 UNITS/ML 10 ML VIAL SUBQ SCH (20:47)
--- NOTE | 2022-10-26 20:58 | NUR ---
SCHEDULE MEDICATION GIVEN. NO ADVERSE REACTION NOTED. WILL CONTINUE TO MONITOR THE PT.
[2022-10-27] VITALS: BP 119/74
--- NOTE | 2022-10-27 00:59 | NUR ---
PT IS SLEEPING IN BED COMFORTABLY. PT IS NOT IN ANY DISTRESS. BREATHING EVEN AND UNLABORED. SAFETY PRECAUTIONS TAKEN. WILL CONTINUE TO MONITOR THE PT.
[2022-10-27] MEDS: ALBUTEROL SULFATE/IPRATROPIU 3 ML SOL IH SCH ×6 (03:00→23:00)
[2022-10-27 04:00] VITALS: BP 134/68
[2022-10-27] MEDS: MORPHINE SULFATE 4 MG/ML SYR IVP PRN ×5 (04:07→21:06)
--- NOTE | 2022-10-27 04:10 | NUR ---
PT WANTED SOMETHING FOR PAIN. PT COMPLAINED OF CHEST, BACK, AND LEFT SHOULDER PAIN. RATE IT 8/10. MORPHINE GIVEN PER MD ORDER. NO OTHER COMPLAINS. WILL CONTINUE TO MONITOR THE PT.
[2022-10-27] MEDS: ACETYLCYSTEINE 20% (200 MG/ML) 200 MG/ML VIAL INH SCH ×6 (04:36→20:00)
[2022-10-27] MEDS: INSULIN LISPRO 100 UNITS/ML VIAL SUBQ SCH ×3 (06:54→17:06)
[2022-10-27] MEDS: BLOOD GLUCOSE MONITORING 1 DEV DEV FS SCH ×4 (06:55→21:06)
[2022-10-27] MEDS: INSULIN LISPRO SLIDING SCALE 100 UNITS/ML VIAL SUBQ PRN (06:55)
[2022-10-27 07:23] LABS: BASOPHILS % (AUTO) 0.3 % (0.0-2.0); HEMOGLOBIN 9.5 g/dL (12.0-16.0); LYMPHOCYTES # (AUTO) 0.9 K/uL (2.5-16.5); MEAN CORPUSCULAR HEMOGLOBIN 26 pg (27-31); MEAN CORPUSCULAR HGB CONC 32 g/dL (33-37); MEAN CORPUSCULAR VOLUME 82.6 fL (80-94); MONOCYTES # (AUTO) 0.5 K/uL (0.8-1.0); MONOCYTES % (AUTO) 5.9 % (1.7-9.3); NEUTROPHILS # (AUTO) 6.2 K/uL (1.8-7.7); PLATELET COUNT (AUTO) 337 K/uL (140-450); RED BLOOD CELL COUNT(AUTO) 3.63 MIL/uL (4.20-5.40); RED CELL DISTRIBUTION WIDTH 18.6 % (11.6-13.7); WHITE BLOOD COUNT (AUTO) 7.7 K/uL (4.8-10.8)
--- NOTE | 2022-10-27 07:25 | NUR ---
RECEIVED REPORT FROM NIGHTSHIFT NURSE SALAZAR FOR CONTINUITY OF CARE. PT IN STABLE CONDITION. NO SIGNS OF PAIN OR DISTRESS NOTED AT THIS TIME. CURRENTLY RECEIVING BREATHING TREATMENT.
--- NOTE | 2022-10-27 07:25 | NUR ---
ENDORSED PT TO DAY SHIFT RN FOR CONTINUITY OF CARE. PT IS STABLE.
[2022-10-27 07:40] LABS: ANION GAP 9.5 (8-16); CARBON DIOXIDE 31.2 mmol/L (21-32); CREATININE 0.7 mg/dL (0.6-1.3); POTASSIUM 4.7 mmol/L (3.5-5.1); TOTAL BILIRUBIN 0.1 mg/dL (0.0-1.0)
[2022-10-27 07:58] LABS: ALBUMIN 3.1 g/dL (3.4-5.0)
[2022-10-27 08:00] VITALS: BP 144/75
[2022-10-27 08:32] LABS: LYMPHOCYTES % (AUTO) 12.4 % (20.5-51.1); NEUTROPHILS % (AUTO) 81.4 % (42.2-75.2)
[2022-10-27] MEDS: PANTOPRAZOLE 40 MG TABEC PO SCH (08:41)
[2022-10-27] MEDS: APIXABAN 2.5 MG TAB PO SCH ×2 (08:41→20:59)
[2022-10-27] MEDS: methylPREDNISolone SS 40 MG/ML VIAL IVP SCH ×2 (08:41→21:05)
[2022-10-27] MEDS: MONTELUKAST SODIUM 10 MG TAB PO SCH (08:42)
[2022-10-27] MEDS: SERTRALINE 50 MG TAB PO SCH (08:42)
--- NOTE | 2022-10-27 08:42 | NUR ---
MEDICATED PT WITH PRN MORPHINE FOR CHEST AND BACK PAIN 10/10 FROM CHRONIC COUGH.
[2022-10-27] MEDS: BUDESONIDE 0.5 MG/2 ML NEBU INH SCH ×2 (08:56→19:30)
[2022-10-27] MEDS: BENZONATATE 100 MG CAPLF PO PRN ×2 (10:40→16:58)
--- NOTE | 2022-10-27 10:40 | NUR ---
MEDICATED PT WITH PRN TESSALON PERLES FOR COUGH.
--- NOTE | 2022-10-27 11:00 | NUR ---
MOVED PT TO 105B DUE TO NEW CONTACT ISOLATION PRECAUTIONS IN EFFECT FOR PT IN 106B. PT ABLE TO AMBULATE TO NEXT ROOM WITHOUT LABORED BREATHING OR DECREASED IN SPO2.
[2022-10-27 12:00] VITALS: BP 154/85
--- NOTE | 2022-10-27 12:50 | NUR ---
MEDICATED PT WITH PRN MORPHINE FOR CHEST AND BACK PAIN 9/ FROM CHRONIC COUGHING.
[2022-10-27] MEDS: LEVOFLOXACIN 250 MG/D5 PREMIX 50 ML IV SCH (14:11)
[2022-10-27 16:00] VITALS: BP 138/78
--- NOTE | 2022-10-27 16:58 | NUR ---
MEDICATED PT WITH PRN MORPHINE AND TESSALON PERLES FOR CHEST AND BACK PAIN 9/10 FROM CHRONIC COUGHING.
[2022-10-27] MEDS: AZITHROMYCIN 500 MG in DEXTROSE 5% 250 ML IV SCH (18:13)
--- NOTE | 2022-10-27 19:19 | NUR ---
ENDORSED PT TO NIGHTSHIFT NURSE MARIE FOR CONTINUITY OF CARE. PT IN STABLE CONDITION.
--- NOTE | 2022-10-27 19:30 | NUR ---
RECEIVED REPORT FROM DAY SHIFT RN RUDY FOR CONTINUITY OF CARE. PT IS A&O X4. PT IS ON 2L NC SATING AT 96%. PT IS IS NOT IN RESPIRATORY DISTRESS. PT HAS RIGHT FOREARM 22 GAUGE SALINE LOCK. PT AMBULATES, GAIT STEADY. BED LOWERED TO LOWEST POINT, CALL LIGHT WITHIN REACH, SAFETY MEASURES IMPLEMENTED. WILL CONTINUE TO MONITOR.
[2022-10-27 20:00] VITALS: BP 140/73
[2022-10-27] MEDS: INSULIN LANTUS 100 UNITS/ML 10 ML VIAL SUBQ SCH (21:04)
--- NOTE | 2022-10-27 21:05 | NUR ---
SCHEDULE MEDICATION GIVEN. NO ADVERSE REACTION NOTED. WILL CONTINUE TO MONITOR THE PT.
[2022-10-28] VITALS: BP 152/77
--- NOTE | 2022-10-28 | NUR ---
PT IS SLEEPING IN BED COMFORTABLY. PT IS NOT IN ANY DISTRESS. BREATHING EVEN AND UNLABORED. SAFETY PRECAUTIONS TAKEN. WILL CONTINUE TO MONITOR THE PT.
[2022-10-28] MEDS: MORPHINE SULFATE 4 MG/ML SYR IVP PRN ×5 (01:16→21:26)
--- NOTE | 2022-10-28 01:16 | NUR ---
PT COMPLAINED OF CHEST PAIN 05/30. MORPHINE WAS GIVEN. NO OTHER COMPLAINS. WILL CONTINUE TO MONITOR THE PT.
[2022-10-28 04:00] VITALS: BP 130/67
--- NOTE | 2022-10-28 04:10 | NUR ---
PT IS SLEEPING IN BED COMFORTABLY. PT IS NOT IN ANY DISTRESS. BREATHING EVEN AND UNLABORED. SAFETY PRECAUTIONS TAKEN. WILL CONTINUE TO MONITOR THE PT.
[2022-10-28] MEDS: INSULIN LISPRO 100 UNITS/ML VIAL SUBQ SCH ×3 (06:34→17:24)
[2022-10-28] MEDS: INSULIN LISPRO SLIDING SCALE 100 UNITS/ML VIAL SUBQ PRN ×2 (06:35→21:00)
[2022-10-28] MEDS: BLOOD GLUCOSE MONITORING 1 DEV DEV FS SCH ×4 (06:42→20:05)
--- NOTE | 2022-10-28 07:09 | NUR ---
ENDORSED PT TO DAY SHIFT RN FOR CONTINUITY OF CARE. PT IS STABLE.
--- NOTE | 2022-10-28 07:09 | NUR ---
RECEIVED REPORT FROM NIGHTSNMFT NURSE MARIE FOR CONTINUITY OF CARE. PT IN STABLE CONDITION.
[2022-10-28] MEDS: BUDESONIDE 0.5 MG/2 ML NEBU INH SCH ×2 (07:35→19:49)
[2022-10-28] MEDS: ALBUTEROL SULFATE/IPRATROPIU 3 ML SOL IH SCH ×5 (07:42→23:10)
[2022-10-28 07:50] LABS: BASOPHILS % (AUTO) 0.2 % (0.0-2.0); HEMATOCRIT 31.5 % (36-48); HEMOGLOBIN 9.9 g/dL (12.0-16.0); LYMPHOCYTES # (AUTO) 0.9 K/uL (2.5-16.5); LYMPHOCYTES % (AUTO) 12.4 % (20.5-51.1); MEAN CORPUSCULAR HEMOGLOBIN 26 pg (27-31); MEAN CORPUSCULAR HGB CONC 32 g/dL (33-37); MEAN CORPUSCULAR VOLUME 82.5 fL (80-94); MONOCYTES # (AUTO) 0.5 K/uL (0.8-1.0); MONOCYTES % (AUTO) 6.4 % (1.7-9.3); NEUTROPHILS # (AUTO) 5.7 K/uL (1.8-7.7); PLATELET COUNT (AUTO) 414 K/uL (140-450); RED BLOOD CELL COUNT(AUTO) 3.82 MIL/uL (4.20-5.40); RED CELL DISTRIBUTION WIDTH 18.5 % (11.6-13.7); WHITE BLOOD COUNT (AUTO) 7.1 K/uL (4.8-10.8)
[2022-10-28 08:00] VITALS: BP 143/71
[2022-10-28 08:26] LABS: ALBUMIN 2.7 g/dL (3.4-5.0); ANION GAP 12.7 (8-16); CARBON DIOXIDE 32.7 mmol/L (21-32); CREATININE 0.7 mg/dL (0.6-1.3); POTASSIUM 5.4 mmol/L (3.5-5.1); TOTAL BILIRUBIN 0.1 mg/dL (0.0-1.0)
--- NOTE | 2022-10-28 08:30 | NUR ---
NOTIFIED DR. MARTINS OF HIGH POTASSIUM OF 5.4.
[2022-10-28] MEDS ORDERED: SODIUM ZIRCONIUM CYCLOSILICATE 10 GM POWD.PACK PO ONE (08:35)
--- NOTE | 2022-10-28 09:06 | NUR ---
ADMINISTERED ONE TIME DOSE OF LOKELMA FOR HIGH POTASSIUM PER DR. MARTINS'S ORDER.
[2022-10-28] MEDS: methylPREDNISolone SS 40 MG/ML VIAL IVP SCH ×2 (09:07→20:17)
--- NOTE | 2022-10-28 09:07 | NUR ---
ADMINISTERED PRN MORPHINE AND TESSALON PERLES FOR CHEST AND BACK PAIN FROM CHRONIC COUGH.
[2022-10-28] MEDS: MONTELUKAST SODIUM 10 MG TAB PO SCH (09:08)
[2022-10-28] MEDS: SERTRALINE 50 MG TAB PO SCH (09:08)
[2022-10-28] MEDS: BENZONATATE 100 MG CAPLF PO PRN ×2 (09:08→17:16)
[2022-10-28] MEDS: PANTOPRAZOLE 40 MG TABEC PO SCH (09:09)
[2022-10-28] MEDS: APIXABAN 2.5 MG TAB PO SCH ×2 (09:33→20:10)
[2022-10-28] MEDS: ACETYLCYSTEINE 20% (200 MG/ML) 200 MG/ML VIAL INH SCH ×4 (11:35→19:48)
[2022-10-28 12:00] VITALS: BP 133/68
--- NOTE | 2022-10-28 12:26 | NUR ---
PT'S ACCUCHECK SHOWED GLUCOSE AT 148. NOTIFIED DR. MARTINS, HELD 15 UNITS OF HUMALOG PER HIS RECOMMENDATION.
--- NOTE | 2022-10-28 12:42 | NUR ---
ADMINISTERED PRN MORPHINE FOR CHEST AND BACK PAIN 7/10 FROM CHRONIC COUGH.
--- NOTE | 2022-10-28 12:42 | NUR ---
ADMINISTERED MORPHINE FOR PAIN 05/30.
[2022-10-28] MEDS: LEVOFLOXACIN 250 MG/D5 PREMIX 50 ML IV SCH (14:00)
[2022-10-28 16:00] VITALS: BP 134/68
[2022-10-28] MEDS: AZITHROMYCIN 500 MG in DEXTROSE 5% 250 ML IV SCH (17:17)
--- NOTE | 2022-10-28 17:17 | NUR ---
ADMINISTERED PRN MORPHINE FOR CHEST AND BACK PAIN 9/10 AND TESSALON PERLES FOR COUGH.
--- NOTE | 2022-10-28 17:24 | NUR ---
ACCUCHECK SHOWED GLUCOSE 405. ADMINISTERED ORDERED DOSE OF 15 UNITS. PT DENIED ANY SYMPTOMS AT THIS TIME.
--- NOTE | 2022-10-28 17:33 | NUR ---
NOTIFIED DR. MARTINS OF CRITICAL GLUCOSE LEVEL OF 405. AWAITING FURTHER ORDERS.
--- NOTE | 2022-10-28 17:42 | NUR ---
NEW ORDER FOR ONE TIME DOSE OF 5 UNITS OF INSULIN LISPRO GIVEN.
[2022-10-28] MEDS ORDERED: INSULIN LISPRO 100 UNITS/ML VIAL SUBQ SCH (18:00)
--- NOTE | 2022-10-28 19:30 | NUR ---
ENDORSED PT TO NIGHTSAKFT NURSE ANNALITERRY FOR CONTINUITY OF CARE. PT IN STABLE CONDITION.
--- NOTE | 2022-10-28 19:32 | NUR ---
RECEIVED PATIENT LYING ON THE BED, HOB ELEVATED, DENIES PAIN UPON ASSESSMENT, NO SIGNS OF DISTRESS NOTED, ON O2 @2LPM NC. IV ACCESS SITE ON RIGHT FOREARM G22, INTACT AND PATENT. CALL LIGHT WITHIN REACH, BED IN LOW AND LOCKED POSITION.
[2022-10-28 20:00] VITALS: BP 109/67
[2022-10-28] MEDS: INSULIN LANTUS 100 UNITS/ML 10 ML VIAL SUBQ SCH (20:10)
--- NOTE | 2022-10-28 21:26 | NUR ---
PATIENT C/O 9/10 PAIN ON LOWER BACK, PRN MORPHINE GIVEN ORDERED. BP 135/87. SAFETY PRECAUTIONS IN PLACE. WILL CONTINUE TO MONITOR THE PATIENT.
--- NOTE | 2022-10-28 22:08 | NUR ---
SNACKS GIVEN, CALL LIGHT WITHIN REACH.
[2022-10-29] VITALS: BP 139/85
--- NOTE | 2022-10-29 00:10 | NUR ---
VITALS TAKEN T 97.6, P 82, BP 139/85, RESP 20 AND O2 SAT OF 97% ON 2LPM NC. CALL LIGHT WITHIN REACH. WILL CONTINUE TO MONITOR THE PATIENT.
[2022-10-29] MEDS: ACETYLCYSTEINE 20% (200 MG/ML) 200 MG/ML VIAL INH SCH ×2 (00:25→03:33)
[2022-10-29] MEDS: MORPHINE SULFATE 4 MG/ML SYR IVP PRN ×4 (01:40→13:41)
--- NOTE | 2022-10-29 01:40 | NUR ---
PATIENT C/O 8/10 PAIN ON LOWER BACK, PRN MORPHINE GIVEN ORDERED. BP. 142/78, P 80. WILL CONTINUE TO MONITOR THE PATIENT. SAFETY MEASURES IN PLACE. CALL LIGHT WITHIN REACH.
[2022-10-29] MEDS: ALBUTEROL SULFATE/IPRATROPIU 3 ML SOL IH SCH (03:33)
[2022-10-29 04:00] VITALS: BP 131/76
--- NOTE | 2022-10-29 04:54 | NUR ---
PATIENT IS AWAKE, NO C/O PAIN AT THIS TIME, NO SIGNS OF DISTRESS NOTED, CALL LIGHT WITHIN REACH. WILL CONTINUE TO MONITOR THE PATIENT.
--- NOTE | 2022-10-29 05:45 | NUR ---
PRN MORPHINE GIVEN FOR 9/10 PAIN ON LOWER BACK, BP 153/74, P 76. WILL CONTINUE TO MONITOR THE PATIENT.
[2022-10-29] MEDS: BLOOD GLUCOSE MONITORING 1 DEV DEV FS SCH ×3 (06:36→16:10)
[2022-10-29] MEDS: INSULIN LISPRO SLIDING SCALE 100 UNITS/ML VIAL SUBQ PRN ×2 (06:39→11:21)
[2022-10-29] MEDS: INSULIN LISPRO 100 UNITS/ML VIAL SUBQ SCH ×3 (06:39→16:17)
[2022-10-29 06:44] LABS: BASOPHILS % (AUTO) 0.5 % (0.0-2.0); HEMATOCRIT 29.5 % (36-48); HEMOGLOBIN 9.5 g/dL (12.0-16.0); LYMPHOCYTES % (AUTO) 11.2 % (20.5-51.1); MEAN CORPUSCULAR HEMOGLOBIN 27 pg (27-31); MEAN CORPUSCULAR HGB CONC 32 g/dL (33-37); MONOCYTES # (AUTO) 0.6 K/uL (0.8-1.0); MONOCYTES % (AUTO) 6.5 % (1.7-9.3); NEUTROPHILS # (AUTO) 7.4 K/uL (1.8-7.7); NEUTROPHILS % (AUTO) 81.8 % (42.2-75.2); PLATELET COUNT (AUTO) 436 K/uL (140-450); RED BLOOD CELL COUNT(AUTO) 3.59 MIL/uL (4.20-5.40); RED CELL DISTRIBUTION WIDTH 18.5 % (11.6-13.7)
--- NOTE | 2022-10-29 07:19 | NUR ---
PATIENT STABLE. ENDORSED TO DAY NURSE FOR CONTINUITY OF CARE. NEEDS MET THROUGHOUT THE SHIFT.
--- NOTE | 2022-10-29 07:30 | NUR ---
RECEIVED REPORT FROM NIGHTSHIFT NURSE. PT A/O X4. ABLE TO MAKE NEEDS KNOWN. NO SOB OR RESPIRATORY DISTRESS. PAIN MANAGED AT THIS TIME. L HAND #22 SL. ALL NEEDS MET, ALL SAFETY MEASURES IN PLACE.
[2022-10-29 07:32] LABS: ALBUMIN 2.6 g/dL (3.4-5.0); ANION GAP 11.7 (8-16); CREATININE 0.7 mg/dL (0.6-1.3); POTASSIUM 4.7 mmol/L (3.5-5.1); TOTAL BILIRUBIN 0.1 mg/dL (0.0-1.0)
[2022-10-29 08:00] VITALS: BP 146/76
[2022-10-29] MEDS: APIXABAN 2.5 MG TAB PO SCH (09:28)
[2022-10-29] MEDS: SERTRALINE 50 MG TAB PO SCH (09:32)
[2022-10-29] MEDS: PANTOPRAZOLE 40 MG TABEC PO SCH (09:32)
[2022-10-29] MEDS: methylPREDNISolone SS 40 MG/ML VIAL IVP SCH (09:32)
[2022-10-29] MEDS: MONTELUKAST SODIUM 10 MG TAB PO SCH (09:33)
--- NOTE | 2022-10-29 09:45 | NUR ---
PRN MORPHINE GIVEN.
[2022-10-29 12:00] VITALS: BP 152/78
[2022-10-29] MEDS: LEVOFLOXACIN 250 MG/D5 PREMIX 50 ML IV SCH (13:40)
--- NOTE | 2022-10-29 13:45 | NUR ---
PRN MORPHINE GIVEN. PT WITH BREATHING TREATMENT. O2 @ 98%. NEEDS ALL MET. ALL SAFETY MEASURES IN PLACE.
--- NOTE | 2022-10-29 14:25 | NUR ---
REPORT GIVEN TO DAYSUTFT NURSELILLIAN FOR TRANSFER OF CARE.
[2022-10-29 16:00] VITALS: BP 139/79
[2022-10-29] MEDS ORDERED: LEVO750T75 PO (16:42)
[2022-10-29] MEDS ORDERED: PRED20TA5 PO (16:42)
[2022-10-29 16:43] VITALS: BP 139/79
--- NOTE | 2022-10-29 16:49 | NUR ---
DISCHARGE INSTRUCTIONS GIVEN PT VERBALIZED UNDERSTANDING IV DC AWAITING RIDE NO DISTRESS NOTED
--- NOTE | 2022-10-29 16:50 | NUR ---
DIMAS AND [employer] CRACKERS PROVIDED FOR DINNER
--- NOTE | 2022-10-29 17:07 | NUR ---
ASSISSTED TO PRIVATE CAR AWARE RX AT PREFERRED PHARM[facility]Y VERBALIZED UNDERSTANDING STABLE UPON DISCHARGE
[2022-10-30] MEDS ORDERED: predniSONE 20 MG TAB PO SCH (09:00)
--- NOTE | 2022-11-05 08:44 | NUR ---
PT DC'D HOME ON 10/29/22 AT 1700
== END 2022-10-29 17:00 | disposition home or self-care (01) | DRG 871 ==
LOC: MED 10:41 → MTU 14:23 → UNDODISIN 10-29 15:40
PROVIDERS: ADMIT Internal Medicine; ATTEND Internal Medicine
DX: A41.9 Sepsis, unspecified organism (principal); E11.10 Type 2 diabetes mellitus with ketoacidosis without coma; I26.99 Other pulmonary embolism without acute cor pulmonale; J96.21 Acute and chronic respiratory failure with hypoxia; J18.9 Pneumonia, unspecified organism; J44.1 Chronic obstructive pulmonary disease with (acute) exacerbation; C34.90 Malignant neoplasm of unspecified part of unspecified bronchus or lung; Z20.822 Contact with and (suspected) exposure to COVID-19; Z79.01 Long term (current) use of anticoagulants; Z85.118 Personal history of other malignant neoplasm of bronchus and lung; Z88.1 Allergy status to other antibiotic agents; Z88.0 Allergy status to penicillin; Z88.8 Allergy status to other drugs, medicaments and biological substances; Z79.899 Other long term (current) drug therapy; Z79.891 Long term (current) use of opiate analgesic; Z83.49 Family history of other endocrine, nutritional and metabolic diseases; Z82.49 Family history of ischemic heart disease and other diseases of the circulatory system; Z79.4 Long term (current) use of insulin
CPT/HCPCS: 36415; 71045; 80048; 80053; 81001; 82009; 82803; 82948; 83605; 83880; 85025; 87040; 87081; 93005; 94640; 96374; 96375; 99291; J0456; J1815; J1956; J2270; J2405; J2920; J2930; J7060; J7608; J7626

== ENCOUNTER 2022-11-19 14:12 | Inpatient (IN) | payer OTHER ==
[~2022-11-19] VITALS: Ht 162.6 cm; Wt 54.4 kg
[~2022-11-19 14:12] MED LIST changes: +HYDR-5191 PO; +LEVO750T75 PO; +MONT-72 PO; -MONT10TA35 PO
--- NOTE | 2022-11-19 14:29 | NUR ---
BIB WHEELCHAIR TO ER BED 4
[2022-11-19 14:30] VITALS: BP 216/195
[2022-11-19] MEDS ORDERED: ALBUTEROL 0.083% 2.5 MG/3 ML NEBU INH ONE (14:33)
[2022-11-19] MEDS ORDERED: methylPREDNISolone SS 125 MG/2 ML VIAL IVP ONE (14:40)
[2022-11-19] MEDS ORDERED: ALBUTEROL SULFATE/IPRATROPIU 3 ML SOL IH ONE ×2 (14:40→16:25)
[2022-11-19] MEDS ORDERED: NACL 0.9% 500 ML IV ONE (14:40)
--- NOTE | 2022-11-19 14:49 | NUR ---
MEDICATION OVERRIDE DUE TO PT SOB AND TACHYPNEIC, ER PHYSICIAN AWARE OF ALBUTEROL ADMINISTRATION.
[2022-11-19] MEDS ORDERED: MORPHINE SULFATE 4 MG/ML SYR IVP ONE (15:00)
[2022-11-19 15:14] LABS: BASOPHILS # (AUTO) 0.1 K/uL (0.00-0.22); BASOPHILS % (AUTO) 1.3 % (0.0-2.0); EOSINOPHILS % (AUTO) 0.4 % (0.0-4.0); HEMOGLOBIN 10.5 g/dL (12.0-16.0); LYMPHOCYTES # (AUTO) 1.5 K/uL (2.5-16.5); LYMPHOCYTES % (AUTO) 20.9 % (20.5-51.1); MEAN CORPUSCULAR HEMOGLOBIN 26 pg (27-31); MEAN CORPUSCULAR HGB CONC 31 g/dL (33-37); MEAN CORPUSCULAR VOLUME 84.6 fL (80-94); MONOCYTES # (AUTO) 0.4 K/uL (0.8-1.0); MONOCYTES % (AUTO) 5.9 % (1.7-9.3); NEUTROPHILS # (AUTO) 5.2 K/uL (1.8-7.7); NEUTROPHILS % (AUTO) 71.5 % (42.2-75.2); PLATELET COUNT (AUTO) 302 K/uL (140-450); RED BLOOD CELL COUNT(AUTO) 4.02 MIL/uL (4.20-5.40); RED CELL DISTRIBUTION WIDTH 18.5 % (11.6-13.7); WHITE BLOOD COUNT (AUTO) 7.2 K/uL (4.8-10.8)
[2022-11-19] MEDS ORDERED: NACL 0.9% 1,000 ML IV ONE (15:25)
--- NOTE | 2022-11-19 15:25 | NUR ---
67F PRESENTS TO ED WITH C/O CHEST PAIN, COUGH/CONGESTION AND SOB SINCE LAST NIGHT. PT REPORTS A CONSTANT PRESSURE LIKE, 10/10 CHEST PAIN RADIATING TO UPPER BACK AND LEFT ARM. PT REPORTS SICK FAMILY AT HOME, PT STATES DX WITH INFLUENZA A TWO WEEKS AGO. PT CHANGED INTO GOWN PLACED ON BEDSIDE MONITOR. DR. ROSS AND RT MADE AWARE UPON PT ARRIVAL.
[2022-11-19 15:37] LABS: ALBUMIN 4.1 g/dL (3.4-5.0); ANION GAP 15.2 (8-16); CARBON DIOXIDE 24.6 mmol/L (21-32); POTASSIUM 4.8 mmol/L (3.5-5.1); TOTAL BILIRUBIN 0.4 mg/dL (0.0-1.0)
[2022-11-19 15:46] LABS: ACETONE, SERUM NEGATIVE (NEGATIVE)
[2022-11-19] MEDS ORDERED: INSULIN REGULAR, HUMAN 100 UNIT/ML VIAL SUBQ ONE (15:50)
--- NOTE | 2022-11-19 16:18 | NUR ---
SWABS COLLECTED AND WALKED TO LAB.
[2022-11-19] MEDS ORDERED: LEVOFLOXACIN 500 MG/D5W PREMIX 100 ML IV ONE (16:40)
[2022-11-19] MEDS ORDERED: HYDROcodone/APAP 5/325 MG 1 TAB TAB PO PRN (17:05)
[2022-11-19] MEDS ORDERED: ACETAMINOPHEN 325 MG TAB PO PRN (17:05)
[2022-11-19] MEDS ORDERED: ONDANSETRON 4 MG/2 ML VIAL IVP PRN (17:05)
[2022-11-19] MEDS ORDERED: KCL 20 MEQ IN 100 mL PREMIX 200 ML IV PRN (17:05)
[2022-11-19] MEDS ORDERED: MAG SULF 2000 MG/WATER PREMIX 50 ML IV PRN (17:05)
[2022-11-19] MEDS ORDERED: POTASSIUM CHLORIDE 10 MEQ TABER PO PRN (17:05)
[2022-11-19] MEDS ORDERED: MAGNESIUM OXIDE 400 MG TAB PO PRN (17:05)
[2022-11-19] MEDS ORDERED: DEXTROSE 50% 50 ML SYR IVP PRN (17:10)
[2022-11-19] MEDS ORDERED: BENZONATATE 100 MG CAPLF PO PRN (17:15)
[2022-11-19] MEDS ORDERED: hydrALAZINE 20 MG/ML VIAL IVP PRN (17:25)
[2022-11-19] MEDS: MORPHINE SULFATE 2 MG/ML SYR IVP PRN ×2 (18:41→22:28)
[2022-11-19] MEDS ORDERED: ALBUTEROL SULFATE/IPRATROPIU 3 ML SOL IH PRN (19:00)
--- NOTE | 2022-11-19 19:17 | NUR ---
Pt report given to ADELE Mane. Transfer of care at this time.
[2022-11-19] MEDS: ALBUTEROL SULFATE/IPRATROPIU 3 ML SOL IH SCH ×2 (19:32→22:58)
--- NOTE | 2022-11-19 19:33 | NUR ---
RT by bedside
[2022-11-19] MEDS: ACETYLCYSTEINE 10% (100 MG/ML) 100 MG/ML VIAL INH SCH ×2 (19:36→22:59)
[2022-11-19] MEDS: BUDESONIDE 0.5 MG/2 ML NEBU INH SCH (19:36)
[2022-11-19] MEDS ORDERED: cefTRIAXone 1,000 MG VIAL ONE (19:51)
[2022-11-19] MEDS: APIXABAN 2.5 MG TAB PO SCH (21:00)
[2022-11-19] MEDS ORDERED: AZITHROMYCIN 500 MG INJ VIAL IV ONE (21:50)
[2022-11-19] MEDS: methylPREDNISolone SS 40 MG/ML VIAL IVP SCH (22:00)
[2022-11-19] MEDS: BLOOD GLUCOSE MONITORING 1 DEV DEV FS SCH (22:00)
[2022-11-19] MEDS: INSULIN LANTUS 100 UNITS/ML 10 ML VIAL SUBQ SCH (22:13)
[2022-11-19] MEDS: AZITHROMYCIN 500 MG in DEXTROSE 5% 250 ML IV SCH (22:15)
--- NOTE | 2022-11-19 22:22 | NUR ---
Dr. Asher, electrical contacts adjuster for Dr. Luevano paged regarding accucheck result of 811
--- NOTE | 2022-11-19 22:28 | NUR ---
Pt with c/o 10/10 generalized pain and PRN morphine was given as ordered.
--- NOTE | 2022-11-19 22:35 | NUR ---
Received response from Dr. Asher regarding accucheck of 526. New orders received.
[2022-11-19] MEDS ORDERED: INSULIN LISPRO 100 UNITS/ML VIAL SUBQ SCH (22:40)
--- NOTE | 2022-11-19 23:44 | NUR ---
Pt noted resting comfortably at this time with no s/s discomfort or distress.
--- NOTE | 2022-11-20 02:02 | NUR ---
Pt denies any discomfort or pain. Resting comfortably at this time.
[2022-11-20] MEDS: MORPHINE SULFATE 2 MG/ML SYR IVP PRN ×6 (02:51→23:01)
--- NOTE | 2022-11-20 02:51 | NUR ---
Pt with c/o generalized pain 9/10 and PRN morphine was given as ordered.
[2022-11-20] MEDS: ALBUTEROL SULFATE/IPRATROPIU 3 ML SOL IH SCH ×5 (02:52→23:50)
[2022-11-20] MEDS: ACETYLCYSTEINE 10% (100 MG/ML) 100 MG/ML VIAL INH SCH ×3 (02:52→23:25)
--- NOTE | 2022-11-20 03:00 | NUR ---
RT by bedside
--- NOTE | 2022-11-20 03:20 | NUR ---
Pt noted resting comfortably at this time. No s/s discomfort.
--- NOTE | 2022-11-20 06:22 | NUR ---
Pt awake in sitting position in bed with no c/o discomfort at this time.
--- NOTE | 2022-11-20 06:42 | NUR ---
radiologic tech by bedside for blood draw
--- NOTE | 2022-11-20 07:00 | NUR ---
Pt c/o 9/10 chest and back pain and PRN morphine given as ordered.
[2022-11-20 07:15] LABS: BASOPHILS % (AUTO) 0.6 % (0.0-2.0); HEMOGLOBIN 9.5 g/dL (12.0-16.0); LYMPHOCYTES # (AUTO) 1.2 K/uL (2.5-16.5); LYMPHOCYTES % (AUTO) 16.2 % (20.5-51.1); MEAN CORPUSCULAR HEMOGLOBIN 26 pg (27-31); MEAN CORPUSCULAR HGB CONC 33 g/dL (33-37); MEAN CORPUSCULAR VOLUME 80.9 fL (80-94); MONOCYTES # (AUTO) 0.3 K/uL (0.8-1.0); MONOCYTES % (AUTO) 4.5 % (1.7-9.3); NEUTROPHILS # (AUTO) 5.9 K/uL (1.8-7.7); NEUTROPHILS % (AUTO) 78.7 % (42.2-75.2); PLATELET COUNT (AUTO) 293 K/uL (140-450); RED BLOOD CELL COUNT(AUTO) 3.59 MIL/uL (4.20-5.40); RED CELL DISTRIBUTION WIDTH 18.1 % (11.6-13.7); WHITE BLOOD COUNT (AUTO) 7.5 K/uL (4.8-10.8)
--- NOTE | 2022-11-20 07:18 | NUR ---
Report given to Maricarmen ANGULO for transfer of care
[2022-11-20 07:24] LABS: ALBUMIN 3.8 g/dL (3.4-5.0); ANION GAP 13.9 (8-16); CARBON DIOXIDE 26.9 mmol/L (21-32); CREATININE 0.6 mg/dL (0.6-1.3); MAGNESIUM 1.8 mg/dL (1.8-2.4); POTASSIUM 4.8 mmol/L (3.5-5.1); TOTAL BILIRUBIN 0.4 mg/dL (0.0-1.0)
[2022-11-20] MEDS: BUDESONIDE 0.5 MG/2 ML NEBU INH SCH ×2 (07:30→19:45)
--- NOTE | 2022-11-20 07:50 | NUR ---
Pt report given to Makenzie ANGULO. Transfer of care at this time.
--- NOTE | 2022-11-20 07:50 | NUR ---
RECEIVED PT FROM ED IN STABLE CONDITION, PT ABLE TO AMBULATE TO BED WITH STEADY GAIT. VSS. FULL REPORT GIVEN TO ADELE SUMMERS AND MYSELF, PRECEPTOR. ALL SAFETY MEASURES IN PLACE, CALL LIGHT WITHIN REACH.
--- NOTE | 2022-11-20 07:59 | NUR ---
Patient will be admitted to care of Bassem BENAVIDES. Admitted to Telemetry. Will go to room 123A. Belongings list completed. Report to Makenzie ANGULO
[2022-11-20] MEDS: BLOOD GLUCOSE MONITORING 1 DEV DEV FS SCH ×4 (08:18→20:53)
[2022-11-20] MEDS: INSULIN LISPRO SLIDING SCALE 100 UNITS/ML VIAL SUBQ PRN ×3 (08:20→20:57)
--- NOTE | 2022-11-20 09:36 | NUR ---
PATIENT HAS BEEN SCREENED AND CATEGORIZED MODERATE NUTRITION RISK. PATIENT WILL BE SEEN WITHIN 3-5 DAYS OF ADMISSION. REVIEWED BY ANDREA HARDING RD
[2022-11-20] MEDS: methylPREDNISolone SS 40 MG/ML VIAL IVP SCH ×2 (10:06→21:12)
[2022-11-20] MEDS: APIXABAN 2.5 MG TAB PO SCH ×2 (10:06→21:13)
--- NOTE | 2022-11-20 11:00 | NUR ---
PT REPORTING 8/10 PAIN, MEDICATED PER MD ORDER. VSS. IV PATENT AND INTACT. PT EDUCATION PROVIDED. PT REPORTS HAVING A DRS APPOINTMENT AT 1245 11/21/2022. STATED SHE WILL CALL AND SEE IF SHE CAN RESCHEDULE. ALL SAFETY MEASURES IN PLACE, CALL LIGHT WITHIN REACH. WILL CONTINUE TO MONITOR.
--- NOTE | 2022-11-20 11:30 | NUR ---
BLOOD GLUCOSE IS 275, 6 UNITS OF INSULIN ADMINISTERED. PT TOLERATED ADMINISTRATION.
[2022-11-20 12:00] VITALS: BP 163/70
--- NOTE | 2022-11-20 12:00 | NUR ---
PT STATED SHE IS UNABLE TO RESCHEDULE HER DRS APPOINTMENT, IS ASKING IF SHE CAN BE DISCHARGED IN THE AM BEFORE 11 SO SHE CAN MAKE HER APPOINTMENT. STATES HE IS AGREEABLE FOR PT TO BE OBSERVED FOR THE DAY AND DC IN THE AM. ALL PARTIES AGREEABLE.
--- NOTE | 2022-11-20 13:04 | NUR ---
CALLED RT PER PT REQUEST FOR INCREASED COUGHING. PT CURRENTLY STABLE IN BED WITH NO S/S OF RESP DISTRESS, DENIES ANY OTHER NEEDS AT THIS TIME.
--- NOTE | 2022-11-20 13:53 | NUR ---
MADE ROUNDS, PT IS RECEIVING BREATHING TREATMENT WITH RT AT BEDSIDE. PT REPORTS ALL NEEDS MET, NO S/S OF ACUTE DISTRESS. ALL SAFETY MEASURES IN PLACE, CALL LIGHT WITHIN REACH. WILL CONTINUE TO MONITOR.
--- NOTE | 2022-11-20 15:00 | NUR ---
MADE ROUNDS,PATIENT COMPLAINS OF CHEST PAIN,VITALS ARE STABLE.RATED 8 PER ADULT PAIN RATING SCALE.NO COMPLAINS OF OTHER DISTRESS NOTED .PAIN MEDICATIONS GIVE PER PRN ORDERS.ALL SAFETY MEASURES IN PLACE,CALL LIGHT WITHIN REACH.WILL CONTINUE TO MONITOR.
--- NOTE | 2022-11-20 15:11 | NUR ---
DC PLANNING SW MET WITH PT AT BEDSIDE TO COMPLETE ASSESSMENT. PT ALERT AND ORIENTED TO PROVIDE ALL OF HER OWN INFORMATION. PT REPORTS RESIDING IN A SECOND FLOOR APT WITH HER DAUGHTER AND THREE GRANDCHILDREN, AT THAT ADDRESS LISTED ON FILE. PT IDENTIFIED EMILY SHARMA, DAUGHTER, EMERGENCY CONTACT. PT DENIED HAVING AD IN PLACE AND DECLINED AD OFFERED BY SW. PT REPORTS HAVING AD RESOURCE AT HOME. PT REPORTS MEETING WITH PCP DR KELSEY EVERY THREE MONTHS, LAST VISIT; 11/14 . PT REPORTS MEDICATION COMPLIANCE AND DENIES BARRIERS ACCESS TO NEEDED MEDICATIONS. PT REPORTS RECEIVING MEDICATION FROM [facility], WHEN NEEDED. PT REPORTS BEING AMBULATORY WITH DME ASSISTANCE; FWW, O2 AND NEBULIZER AND REQUIRES ASSISTANCE WITH ADL'S THAT HER DAUGHTER/ FAMILY AID WITH. PT REPORTS RECEIVING [facility] HOURS OF 149 HRS PER MONTH. PT REPORTS [facility] CAREGIVER IS HER DAUGHTER, EMILY SHARMA. PT DENIES MH/العراقي, SNF AND HH HX. PT REPORTS HX OF DIABETES THAT IS NOT WELL MANAGED DUE TO HER COPD, PT REPORTS STEROIDS THROW OFF SUGARS AND SHE IS WORKING WITH PHYSICIAN TO CONTROL. PT REPORTS ADEQUATE FOOD IN THE HOME . PT REPORTS DC PLAN IS TO RETURN HOME WITH HER DAUGHTER PROVIDING TRANSPORTATION AND AIDING IN CARE. SW INQUIRED ON RESOURCES NEEDED, PT DECLINED. Addendum: 11/20/22 at 1512 by Maribel VEGA Amended: Links added.
[2022-11-20 16:00] VITALS: BP 106/64
--- NOTE | 2022-11-20 17:00 | NUR ---
CHECKED THE BLOOD GLUCOSE LEVEL.ITS 412 MG /DL.NOTIFIED MD REGARDING THE BLOOD GLUCOSE LEVEL AND THE SLIDING SCALE. ADVISED TO GIVE 12 UNITS .ADMINISTERED 12 UNITS HUMALOG PER ORDER.
[2022-11-20] MEDS ORDERED: INSULIN LISPRO 100 UNITS/ML VIAL SUBQ SCH (17:30)
[2022-11-20 20:00] VITALS: BP 137/76
[2022-11-20] MEDS: INSULIN LANTUS 100 UNITS/ML 10 ML VIAL SUBQ SCH (20:57)
[2022-11-20] MEDS: AZITHROMYCIN 500 MG in DEXTROSE 5% 250 ML IV SCH (21:18)
[2022-11-21] VITALS: BP 116/64
[2022-11-21 04:00] VITALS: BP 143/74
[2022-11-21] MEDS: ALBUTEROL SULFATE/IPRATROPIU 3 ML SOL IH SCH ×3 (04:58→10:30)
[2022-11-21 05:50] LABS: BASOPHILS % (AUTO) 0.2 % (0.0-2.0); HEMATOCRIT 30.1 % (36-48); HEMOGLOBIN 9.5 g/dL (12.0-16.0); LYMPHOCYTES # (AUTO) 0.7 K/uL (2.5-16.5); LYMPHOCYTES % (AUTO) 11.1 % (20.5-51.1); MEAN CORPUSCULAR HEMOGLOBIN 26 pg (27-31); MEAN CORPUSCULAR HGB CONC 32 g/dL (33-37); MEAN CORPUSCULAR VOLUME 83.9 fL (80-94); MONOCYTES # (AUTO) 0.2 K/uL (0.8-1.0); MONOCYTES % (AUTO) 2.7 % (1.7-9.3); NEUTROPHILS # (AUTO) 5.6 K/uL (1.8-7.7); PLATELET COUNT (AUTO) 296 K/uL (140-450); RED BLOOD CELL COUNT(AUTO) 3.59 MIL/uL (4.20-5.40); RED CELL DISTRIBUTION WIDTH 18.2 % (11.6-13.7); WHITE BLOOD COUNT (AUTO) 6.6 K/uL (4.8-10.8)
[2022-11-21 06:21] LABS: ALBUMIN 3.5 g/dL (3.4-5.0); ANION GAP 13.8 (8-16); CARBON DIOXIDE 27.9 mmol/L (21-32); CREATININE 0.8 mg/dL (0.6-1.3); MAGNESIUM 1.7 mg/dL (1.8-2.4); POTASSIUM 4.7 mmol/L (3.5-5.1); TOTAL BILIRUBIN 0.1 mg/dL (0.0-1.0)
[2022-11-21] MEDS: BLOOD GLUCOSE MONITORING 1 DEV DEV FS SCH ×2 (06:47→12:02)
[2022-11-21] MEDS: ACETYLCYSTEINE 10% (100 MG/ML) 100 MG/ML VIAL INH SCH ×2 (06:48→13:13)
[2022-11-21] MEDS: INSULIN LISPRO SLIDING SCALE 100 UNITS/ML VIAL SUBQ PRN (06:48)
[2022-11-21] MEDS: MORPHINE SULFATE 2 MG/ML SYR IVP PRN ×2 (06:51→10:52)
[2022-11-21] MEDS: BUDESONIDE 0.5 MG/2 ML NEBU INH SCH (07:00)
--- NOTE | 2022-11-21 07:25 | NUR ---
PT AWAKE. AMBULATED TO SINK WITH A STEADY GAIT. NO C/O PAIN. NO ACUTE DISTRESS NOTED AT THIS TIME. [id number].
--- NOTE | 2022-11-21 07:46 | NUR ---
RECEIVED PT FROM EDY ANGULO 0715. [id number].
[2022-11-21 08:00] VITALS: BP 159/93
[2022-11-21] MEDS: methylPREDNISolone SS 40 MG/ML VIAL IVP SCH (08:32)
[2022-11-21] MEDS: APIXABAN 2.5 MG TAB PO SCH (08:34)
[2022-11-21] MEDS ORDERED: INSULIN LISPRO 100 UNITS/ML VIAL SUBQ SCH (08:45)
[2022-11-21] MEDS ORDERED: AZIT250T3 PO (09:47)
[2022-11-21] MEDS ORDERED: PRED20TA5 PO (09:47)
== END 2022-11-21 13:35 | disposition home or self-care (01) | DRG 189 ==
LOC: MED 14:12 → MTU 17:08
PROVIDERS: ADMIT Internal Medicine; ATTEND Internal Medicine
DX: J96.21 Acute and chronic respiratory failure with hypoxia (principal); J44.1 Chronic obstructive pulmonary disease with (acute) exacerbation; C34.90 Malignant neoplasm of unspecified part of unspecified bronchus or lung; I27.82 Chronic pulmonary embolism; Z20.822 Contact with and (suspected) exposure to COVID-19; F17.210 Nicotine dependence, cigarettes, uncomplicated; E11.65 Type 2 diabetes mellitus with hyperglycemia; Z79.899 Other long term (current) drug therapy; Z88.0 Allergy status to penicillin; Z88.8 Allergy status to other drugs, medicaments and biological substances; Z86.718 Personal history of other venous thrombosis and embolism; Z90.49 Acquired absence of other specified parts of digestive tract
CPT/HCPCS: 36415; 71045; 80053; 82009; 82948; 83735; 83880; 84484; 85025; 87081; 94640; 96361; 96365; 96372; 96375; 99291; J0456; J0696; J1815; J1956; J2270; J2920; J2930; J7060; J7613; J7626; Q0092

== ENCOUNTER 2022-12-06 15:04 | Inpatient (IN) | payer OTHER ==
[~2022-12-06] VITALS: Ht 157.5 cm; Wt 56.2 kg
[~2022-12-06 15:04] MED LIST changes: +AZIT250T3 PO; -HYDR-5080 PO; -LEVO750T75 PO; -MONT-72 PO; +MONT10TA35 PO
[2022-12-06 15:16] VITALS: BP 150/86
--- NOTE | 2022-12-06 15:51 | NUR ---
X-Ray at bedside.
--- NOTE | 2022-12-06 15:57 | NUR ---
67 Y/O FEMALE BIB SELF C/O SOB, COUGH, CHEST PAIN RADIATING THE LEFT ARM AND BACK X2DAYS WITH INCREASED PAIN TODAY. DENIES ANY NV, ABD PAIN, DIZZINESS, OR NASAL CONGESTION. BS HI , PLACED IN A GOWN AND ON BEDSIDE MONITOR PMH: LUNG CA, LEFT UPPER LOBE, COPD, ASTHMA, DM
[2022-12-06] MEDS ORDERED: NACL 0.9% 1,000 ML IV ONE (16:00)
[2022-12-06] MEDS ORDERED: KETOROLAC 30 MG/ML VIAL IVP ONE (16:00)
[2022-12-06 16:01] LABS: BASOPHILS % (AUTO) 0.7 % (0.0-2.0); EOSINOPHILS % (AUTO) 0.2 % (0.0-4.0); HEMATOCRIT 34.7 % (36-48); HEMOGLOBIN 10.9 g/dL (12.0-16.0); LYMPHOCYTES # (AUTO) 1.3 K/uL (2.5-16.5); LYMPHOCYTES % (AUTO) 17.4 % (20.5-51.1); MEAN CORPUSCULAR HEMOGLOBIN 26 pg (27-31); MEAN CORPUSCULAR HGB CONC 31 g/dL (33-37); MEAN CORPUSCULAR VOLUME 82.7 fL (80-94); MONOCYTES # (AUTO) 0.4 K/uL (0.8-1.0); MONOCYTES % (AUTO) 5.6 % (1.7-9.3); NEUTROPHILS # (AUTO) 5.5 K/uL (1.8-7.7); NEUTROPHILS % (AUTO) 76.1 % (42.2-75.2); PLATELET COUNT (AUTO) 391 K/uL (140-450); WHITE BLOOD COUNT (AUTO) 7.2 K/uL (4.8-10.8)
--- NOTE | 2022-12-06 16:21 | NUR ---
DR LAY AT BEDSIDE FOR EVAL
[2022-12-06] MEDS ORDERED: predniSONE 20 MG TAB PO ONE (16:25)
[2022-12-06] MEDS ORDERED: ALBUTEROL SULFATE/IPRATROPIU 3 ML SOL IH ONE (16:25)
[2022-12-06] MEDS ORDERED: MORPHINE SULFATE 4 MG/ML SYR IVP ONE (16:25)
[2022-12-06] MEDS ORDERED: ALBUTEROL 0.083% 2.5 MG/3 ML NEBU INH ONE (16:25)
[2022-12-06 16:29] LABS: ALBUMIN 4.1 g/dL (3.4-5.0); ANION GAP 16.2 (8-16); CARBON DIOXIDE 24.7 mmol/L (21-32); CREATININE 0.9 mg/dL (0.6-1.3); POTASSIUM 4.9 mmol/L (3.5-5.1); TOTAL BILIRUBIN 0.2 mg/dL (0.0-1.0)
--- NOTE | 2022-12-06 16:42 | NUR ---
RT AT BEDSIDE
--- NOTE | 2022-12-06 16:56 | NUR ---
SWABS HANDED TO LAB
[2022-12-06] MEDS ORDERED: INSULIN REGULAR, HUMAN 100 UNIT/ML VIAL IVP ONE (17:10)
[2022-12-06] MEDS ORDERED: HYDROcodone/APAP 5/325 MG 1 TAB TAB PO PRN (17:25)
[2022-12-06] MEDS ORDERED: ACETAMINOPHEN 325 MG TAB PO PRN (17:25)
[2022-12-06] MEDS ORDERED: POTASSIUM CHLORIDE 10 MEQ TABER PO PRN (17:25)
[2022-12-06] MEDS ORDERED: ONDANSETRON 4 MG/2 ML VIAL IVP PRN (17:25)
--- NOTE | 2022-12-06 18:18 | NUR ---
DINNER GIVEN, HOB ELEVATED
--- NOTE | 2022-12-06 19:18 | NUR ---
Pt report given to ZANE MACKENZIE. Transfer of care at this time.
[2022-12-06] MEDS: ALBUTEROL SULFATE/IPRATROPIU 3 ML SOL IH SCH (19:44)
[2022-12-06] MEDS: INSULIN LANTUS 100 UNITS/ML 10 ML VIAL SUBQ SCH (21:22)
[2022-12-06] MEDS: MORPHINE SULFATE 4 MG/ML SYR IVP PRN (21:29)
[2022-12-06 22:15] VITALS: BP 126/60
--- NOTE | 2022-12-06 22:15 | NUR ---
PT ARRIVED VIA GURNEY FROM ED IN STABLE CONDITION - A+OxNPTE. PT AMBULATORY. VSS: 126/60 LA, 88 HR, 91% O2 SAT ON RA, AND 18 RR. PT REPORTS USING 3L O2 VIA NC AT HOME AND THAT SHE REPORTED THIS TO RT. PT REPORTS HAVING BEEN TO THIS HOSPITAL BEFORE WITH THE LAST TIME BEING NOVEMBER 21, 2022.
[2022-12-07] VITALS (11 sets, daily range): BP systolic 66–143; BP diastolic 0–76
--- NOTE | 2022-12-07 01:00 | NUR ---
MRSA NASAL SWAB COLLECTED FOR LAB.
[2022-12-07] MEDS: MORPHINE SULFATE 4 MG/ML SYR IVP PRN ×5 (01:38→22:39)
[2022-12-07] MEDS: ALBUTEROL SULFATE/IPRATROPIU 3 ML SOL IH SCH ×6 (01:57→22:43)
[2022-12-07 05:59] LABS: BASOPHILS % (AUTO) 0.2 % (0.0-2.0); HEMATOCRIT 30.3 % (36-48); HEMOGLOBIN 9.7 g/dL (12.0-16.0); LYMPHOCYTES # (AUTO) 0.5 K/uL (2.5-16.5); LYMPHOCYTES % (AUTO) 7.5 % (20.5-51.1); MEAN CORPUSCULAR HEMOGLOBIN 27 pg (27-31); MEAN CORPUSCULAR HGB CONC 32 g/dL (33-37); MEAN CORPUSCULAR VOLUME 86.2 fL (80-94); MONOCYTES # (AUTO) 0.2 K/uL (0.8-1.0); NEUTROPHILS # (AUTO) 6.1 K/uL (1.8-7.7); NEUTROPHILS % (AUTO) 89.3 % (42.2-75.2); PLATELET COUNT (AUTO) 317 K/uL (140-450); RED BLOOD CELL COUNT(AUTO) 3.52 MIL/uL (4.20-5.40); WHITE BLOOD COUNT (AUTO) 6.8 K/uL (4.8-10.8)
[2022-12-07 06:19] LABS: ANION GAP 19.8 (8-16); CARBON DIOXIDE 21.7 mmol/L (21-32); CREATININE 1.1 mg/dL (0.6-1.3); POTASSIUM 5.5 mmol/L (3.5-5.1)
--- NOTE | 2022-12-07 07:45 | NUR ---
REPORT RECEIVED FROM NIGHTSHIFT NURSE, UZIEL. NEW ORDERS FROM MD TO TRANSFER TO ICU FOR INSULIN DRIP AND ACCUCHECK ORDERS. ORDERS INPUTTED BY UZIEL. PT A/O X4. ABLE TO MAKE NEEDS KNOWN. ACCUCHECK READING = 579. WILL CONTACT MD FOR NEW ORDERS AND POSSIBLE TRANSFER TO ICU. PT DENIES NAUSEA, VOMITING, SOB. TELE, SR. RA. CCH0 DIET. NEEDS ALL MET AT THIS TIME. ALL SAFETY MEASURES IN PLACE.
[2022-12-07] MEDS ORDERED: INSULIN LISPRO 100 UNITS/ML VIAL SUBQ SCH (07:50)
--- NOTE | 2022-12-07 07:50 | NUR ---
CONTACTED MD REGARDING TRANSFER AND LAB GLUCOSE. MD ORDER 20 UNITS LISPRO X1 DOSE AND TRANSFER TO ICU. CONTACTED CHARGE NURSE NOE AND LOCAL BULK DRIVER. AWAITING TRANSFER TO ICU.
--- NOTE | 2022-12-07 08:05 | NUR ---
LISPRO 20 UNITS X1 DOSE GIVEN SQ. PT TOLERATED WELL.
[2022-12-07] MEDS ORDERED: DEXTROSE 50% 50 ML SYR IVP PRN (08:10)
[2022-12-07] MEDS ORDERED: predniSONE 10 MG TAB PO SCH (09:00)
[2022-12-07] MEDS ORDERED: BLOOD GLUCOSE MONITORING 1 DEV DEV FS SCH (09:00)
--- NOTE | 2022-12-07 09:01 | NUR ---
PATIENT HAS BEEN SCREENED AND CATEGORIZED MODERATE NUTRITION RISK. PATIENT WILL BE SEEN WITHIN 3-5 DAYS OF ADMISSION. REVIEWED BY ANDREA HARDING RD
[2022-12-07] MEDS: INSULIN LANTUS 100 UNITS/ML 10 ML VIAL SUBQ SCH ×2 (09:02→20:52)
--- NOTE | 2022-12-07 09:10 | NUR ---
ACCUCHECK BLOOD GLUCOSE READING TOO HIGH TO READ. 30 UNITS LANTUS GIVEN SQ. WILL TRANSFER PT ONCE ICU ONCE BED IS AVAILABLE. REPORT WILL BE GIVEN TO CHARGE NURSE.
--- NOTE | 2022-12-07 10:34 | NUR ---
REPORT GIVEN TO CHARGE NURSEARTUR. PT TRANSPORTED TO ICU BED 1
[2022-12-07] MEDS ORDERED: ALBUTEROL 0.083% 2.5 MG/3 ML NEBU INH ONE (10:45)
--- NOTE | 2022-12-07 10:50 | NUR ---
RECEIVED PTM FROM RM119 DUE TO HYPER GLYCEMIA,PT, IS COPD COUGHING AND WHEEZING AWAKE AND ALERT THE TIME, HAS IV HEPLOCK GATE #20 ON LEFT ARM. SKIN DRY AND WARM TO TOUCH ADM PT. TO ICU BED 1.
[2022-12-07] MEDS ORDERED: ALBUTEROL 0.083% 2.5 MG/3 ML NEBU INH PRN ×2 (10:55)
--- NOTE | 2022-12-07 11:00 | NUR ---
CALLED DR. CHAVARRIA .REGARDING INSULIN DRIP AND CARE, WILL GIVE INSULIN DRIP ORDERED.
[2022-12-07] MEDS ORDERED: INSULIN REGULAR, HUMAN 100 UNIT in NACL 0.9% 100 ML IV SCH ×2 (11:15)
[2022-12-07] MEDS: BLOOD GLUCOSE MONITORING 1 DEV DEV FS SCH ×3 (11:22→20:49)
--- NOTE | 2022-12-07 11:30 | NUR ---
SEEN BY DR. MENG KAMINSKI RECEIVED, .
[2022-12-07] MEDS: methylPREDNISolone SS 40 MG/ML VIAL IVP SCH ×3 (11:40→21:02)
[2022-12-07] MEDS ORDERED: RENAL DOSING PER PHARMACY MC PRN (11:55)
[2022-12-07] MEDS ORDERED: LEVOFLOXACIN 750 MG/D5W PREMIX 150 ML IV SCH (12:00)
--- NOTE | 2022-12-07 12:00 | NUR ---
BLOOD SUGAR 484 .
--- NOTE | 2022-12-07 13:00 | NUR ---
BLOOD SUGAR 394.
--- NOTE | 2022-12-07 14:00 | NUR ---
BLOOD SUGAR 394 PER FINGER STICK.
--- NOTE | 2022-12-07 14:30 | NUR ---
DR FAN ORDERED MUCOMYST 10% 2ML Q8 AND CHANGED HER DUO FROM Q6 TO DUO Q4.. PT IS AWARE OF THE CHANGES.
[2022-12-07] MEDS: ACETYLCYSTEINE 10% (100 MG/ML) 100 MG/ML VIAL INH SCH ×2 (15:00→22:44)
--- NOTE | 2022-12-07 15:00 | NUR ---
BLOOD SUGAR 282.
--- NOTE | 2022-12-07 16:00 | NUR ---
BLOOD SUGAR FINGER STICK 202.
--- NOTE | 2022-12-07 17:20 | NUR ---
BLOOD SUGAR FINGER STICK 75. INSULIN DRIP D/C BACK TO SLIDING SCALE.
--- NOTE | 2022-12-07 18:18 | NUR ---
DINNER TAKEN WELL.
[2022-12-07] MEDS: INSULIN LISPRO SLIDING SCALE 100 UNITS/ML VIAL SUBQ PRN (20:52)
[2022-12-07] MEDS: APIXABAN 2.5 MG TAB PO SCH (21:01)
--- NOTE | 2022-12-07 21:42 | NUR ---
PATIENT STABLE NOT COMPLAINING OF PAIN VITALS SIGNS IN NORMAL LIMITS SR 86 ON MONITORS BS 327 30 UNITS OF LANTUS AND 8 UNITS OF LISPRO WAS GIVE
[2022-12-08] VITALS (7 sets, daily range): BP systolic 106–132; BP diastolic 54–78
--- NOTE | 2022-12-08 00:51 | NUR ---
PATIENT STABLE VITALS SIGNS IN NORMAL LIMITS SR 76 ON MONITOR
[2022-12-08] MEDS: MORPHINE SULFATE 4 MG/ML SYR IVP PRN ×5 (04:03→20:12)
[2022-12-08] MEDS: ALBUTEROL SULFATE/IPRATROPIU 3 ML SOL IH SCH ×6 (04:05→23:16)
[2022-12-08] MEDS: methylPREDNISolone SS 40 MG/ML VIAL IVP SCH ×3 (04:43→20:01)
[2022-12-08] MEDS: BLOOD GLUCOSE MONITORING 1 DEV DEV FS SCH ×5 (05:02→20:00)
[2022-12-08 05:56] LABS: BASOPHILS # (AUTO) 0.1 K/uL (0.00-0.22); BASOPHILS % (AUTO) 0.7 % (0.0-2.0); EOSINOPHILS % (AUTO) 0.1 % (0.0-4.0); HEMATOCRIT 32.3 % (36-48); HEMOGLOBIN 10.3 g/dL (12.0-16.0); LYMPHOCYTES # (AUTO) 2.2 K/uL (2.5-16.5); LYMPHOCYTES % (AUTO) 26.6 % (20.5-51.1); MEAN CORPUSCULAR HEMOGLOBIN 26 pg (27-31); MEAN CORPUSCULAR HGB CONC 32 g/dL (33-37); MEAN CORPUSCULAR VOLUME 81.7 fL (80-94); MONOCYTES # (AUTO) 0.5 K/uL (0.8-1.0); MONOCYTES % (AUTO) 5.4 % (1.7-9.3); NEUTROPHILS # (AUTO) 5.6 K/uL (1.8-7.7); NEUTROPHILS % (AUTO) 67.2 % (42.2-75.2); PLATELET COUNT (AUTO) 376 K/uL (140-450); RED BLOOD CELL COUNT(AUTO) 3.95 MIL/uL (4.20-5.40); RED CELL DISTRIBUTION WIDTH 18.1 % (11.6-13.7); WHITE BLOOD COUNT (AUTO) 8.4 K/uL (4.8-10.8)
[2022-12-08 06:23] LABS: ANION GAP 12.1 (8-16); CARBON DIOXIDE 29.5 mmol/L (21-32); CREATININE 0.8 mg/dL (0.6-1.3); POTASSIUM 3.6 mmol/L (3.5-5.1)
--- NOTE | 2022-12-08 06:24 | NUR ---
PATIENT STABLE VITALS SIGNS IN NORMAL LIMITS NOT COMPLAINING OF PAIN AT THIS TIME SR 76 ON MONITOR
--- NOTE | 2022-12-08 06:32 | NUR ---
PATIENT HAS AN HYPOGLISEMIA 68 DEXTROSE 50 WAS GIVE ACUTE CHECK AFTER WAS 198
[2022-12-08] MEDS: ACETYLCYSTEINE 10% (100 MG/ML) 100 MG/ML VIAL INH SCH ×3 (07:07→23:17)
--- NOTE | 2022-12-08 07:30 | NUR ---
RECEIVED PATIENT REPORT FROM ROPE LAYING MACHINE OPERATOR NURSE FOR CONTINUITY OF CARE. PT IS AOX4, ABLE TO MAKE NEEDS KNOWN. ON ROOM AIR AND NO RESPIRATORY DISTRESS NOTED. SKIN IS WARM, DRY, AND INTACT. IV SITE ON LFA 20 SALINE LOCKED. INTACT AND PATENT. PT DENIES PAIN AT THE MOMENT. PLAN OF CARE DISCUSSED. SAFETY PRECAUTIONS IN PLACE. CALL LIGHT WITHIN REACH. WILL CONTINUE TO MONITOR.
[2022-12-08] MEDS: APIXABAN 2.5 MG TAB PO SCH ×2 (08:24→20:01)
[2022-12-08] MEDS: INSULIN LANTUS 100 UNITS/ML 10 ML VIAL SUBQ SCH ×2 (08:25→20:04)
--- NOTE | 2022-12-08 09:30 | NUR ---
ALL SCHEDULED MEDS GIVEN. PT IS STABLE. NO DISTRESS NOTED. WILL CONTINUE TO MONITOR.
--- NOTE | 2022-12-08 12:20 | NUR ---
BS CHECK WAS 89. NO INSULIN COVERAGE NEEDED
--- NOTE | 2022-12-08 17:34 | NUR ---
BS CHECK WAS 95. NO INSULIN COVERAGE NEEDED
[2022-12-08] MEDS: BUDESONIDE 0.5 MG/2 ML NEBU INH SCH (18:53)
--- NOTE | 2022-12-08 19:17 | NUR ---
ENDORSED TO FINISHING AREA OPERATOR NURSE FOR CONTINUITY OF CARE. PT IS STABLE.
[2022-12-08] MEDS: INSULIN LISPRO SLIDING SCALE 100 UNITS/ML VIAL SUBQ PRN (20:04)
--- NOTE | 2022-12-08 20:30 | NUR ---
RECEIVED PT FROM ICU. PATIENT IS AWAKE ALERT AND ORIENTED X 4. DENIES PAIN. DENIES SHORTNESS OF BREATH. ON ROOM SAT 95%. SKIN WARM AND DRY TO TOUCH. SAFETY PRECAUTION IN PLACE, CALL LIGHT IN REACH.
--- NOTE | 2022-12-08 20:53 | NUR ---
PATIENT STABLE VITALS SIGNS IN NORMAL LIMITS SR 76 ON MONITOR TRANSFER TO TELE ROOM 106 A REPORT AND ENDORSED CARE TO ANY RN
--- NOTE | 2022-12-08 22:34 | NUR ---
PATIENT MOVED TO RM 125A, ALL BELONGINGS TAKEN WITH PT. MADE COMFORTABLE IN THE ROOM, CALL LIGHT PLACED WITHIN REACH.
[2022-12-09] VITALS: BP 110/71
[2022-12-09] MEDS: MORPHINE SULFATE 4 MG/ML SYR IVP PRN ×6 (00:19→21:49)
[2022-12-09] MEDS: ALBUTEROL SULFATE/IPRATROPIU 3 ML SOL IH SCH ×6 (03:07→23:12)
[2022-12-09 04:00] VITALS: BP 113/64
[2022-12-09] MEDS: methylPREDNISolone SS 40 MG/ML VIAL IVP SCH ×3 (05:18→21:26)
[2022-12-09 06:28] LABS: BASOPHILS % (AUTO) 0.1 % (0.0-2.0); EOSINOPHILS % (AUTO) 0.1 % (0.0-4.0); HEMATOCRIT 32.1 % (36-48); HEMOGLOBIN 10.2 g/dL (12.0-16.0); LYMPHOCYTES % (AUTO) 13.2 % (20.5-51.1); MEAN CORPUSCULAR HEMOGLOBIN 27 pg (27-31); MEAN CORPUSCULAR HGB CONC 32 g/dL (33-37); MEAN CORPUSCULAR VOLUME 84.3 fL (80-94); MONOCYTES # (AUTO) 0.2 K/uL (0.8-1.0); MONOCYTES % (AUTO) 3.1 % (1.7-9.3); NEUTROPHILS # (AUTO) 6.2 K/uL (1.8-7.7); NEUTROPHILS % (AUTO) 83.5 % (42.2-75.2); PLATELET COUNT (AUTO) 348 K/uL (140-450); RED BLOOD CELL COUNT(AUTO) 3.81 MIL/uL (4.20-5.40); RED CELL DISTRIBUTION WIDTH 18.6 % (11.6-13.7); WHITE BLOOD COUNT (AUTO) 7.4 K/uL (4.8-10.8)
[2022-12-09 06:30] LABS: ANION GAP 12.7 (8-16); CARBON DIOXIDE 28.7 mmol/L (21-32); CREATININE 0.7 mg/dL (0.6-1.3); POTASSIUM 5.4 mmol/L (3.5-5.1)
--- NOTE | 2022-12-09 06:33 | NUR ---
PATIENT IS AWAKE, WATCHING TV. DENIES PAIN AT THIS TIME. ALL NEEDS ATTENDED TO. SAFETY PRECAUTIONS MAINTAINED DURING THE SHIFT, CALL LIGHT IN REACH.
[2022-12-09] MEDS: BLOOD GLUCOSE MONITORING 1 DEV DEV FS SCH ×4 (06:35→21:27)
[2022-12-09] MEDS: INSULIN LISPRO SLIDING SCALE 100 UNITS/ML VIAL SUBQ PRN ×2 (06:36→21:19)
[2022-12-09] MEDS: BUDESONIDE 0.5 MG/2 ML NEBU INH SCH ×2 (07:25→19:29)
[2022-12-09] MEDS: ACETYLCYSTEINE 10% (100 MG/ML) 100 MG/ML VIAL INH SCH (07:26)
[2022-12-09 08:00] VITALS: BP 136/68
[2022-12-09] MEDS ORDERED: LEVOFLOXACIN 750 MG/D5W PREMIX 150 ML IV SCH (08:47)
[2022-12-09] MEDS: INSULIN LANTUS 100 UNITS/ML 10 ML VIAL SUBQ SCH ×2 (09:27→21:13)
[2022-12-09] MEDS: APIXABAN 2.5 MG TAB PO SCH ×2 (09:28→21:11)
--- NOTE | 2022-12-09 11:20 | NUR ---
OFF SUPPLEMENTAL OXYGEN AT THIS TIME; NC AT BEDSIDE ON AT 3 LPM; NO DISTRESS NOTED GOOD CHEST RISE
[2022-12-09] MEDS: LEVOFLOXACIN 750 MG/D5W PREMIX 150 ML IV SCH (11:52)
[2022-12-09 12:00] VITALS: BP 118/74
[2022-12-09] MEDS: INSULIN LISPRO 100 UNITS/ML VIAL SUBQ SCH ×2 (12:07→17:00)
[2022-12-09 16:00] VITALS: BP 121/78
[2022-12-09 20:00] VITALS: BP 123/71
[2022-12-10] VITALS: BP 125/75
[2022-12-10] MEDS: MORPHINE SULFATE 4 MG/ML SYR IVP PRN ×6 (01:59→22:24)
[2022-12-10] MEDS: ALBUTEROL SULFATE/IPRATROPIU 3 ML SOL IH SCH ×6 (03:02→23:26)
[2022-12-10 04:00] VITALS: BP 122/70
[2022-12-10 06:24] LABS: BASOPHILS % (AUTO) 0.3 % (0.0-2.0); HEMATOCRIT 31.8 % (36-48); HEMOGLOBIN 10.2 g/dL (12.0-16.0); LYMPHOCYTES % (AUTO) 13.2 % (20.5-51.1); MEAN CORPUSCULAR HEMOGLOBIN 27 pg (27-31); MEAN CORPUSCULAR HGB CONC 32 g/dL (33-37); MEAN CORPUSCULAR VOLUME 83.8 fL (80-94); MONOCYTES # (AUTO) 0.3 K/uL (0.8-1.0); MONOCYTES % (AUTO) 3.9 % (1.7-9.3); NEUTROPHILS # (AUTO) 6.3 K/uL (1.8-7.7); NEUTROPHILS % (AUTO) 82.6 % (42.2-75.2); PLATELET COUNT (AUTO) 340 K/uL (140-450); RED BLOOD CELL COUNT(AUTO) 3.79 MIL/uL (4.20-5.40); RED CELL DISTRIBUTION WIDTH 18.1 % (11.6-13.7); WHITE BLOOD COUNT (AUTO) 7.6 K/uL (4.8-10.8)
[2022-12-10 06:35] LABS: ANION GAP 13.1 (8-16); CARBON DIOXIDE 27.3 mmol/L (21-32); CREATININE 0.8 mg/dL (0.6-1.3); POTASSIUM 4.4 mmol/L (3.5-5.1)
[2022-12-10] MEDS: BLOOD GLUCOSE MONITORING 1 DEV DEV FS SCH ×4 (07:30→21:19)
[2022-12-10] MEDS: BUDESONIDE 0.5 MG/2 ML NEBU INH SCH ×2 (07:33→20:13)
[2022-12-10 08:00] VITALS: BP 120/71
[2022-12-10] MEDS: APIXABAN 2.5 MG TAB PO SCH ×2 (08:33→21:25)
[2022-12-10] MEDS: methylPREDNISolone SS 40 MG/ML VIAL IVP SCH ×2 (08:34→21:27)
[2022-12-10] MEDS: INSULIN LISPRO 100 UNITS/ML VIAL SUBQ SCH ×3 (08:55→17:09)
[2022-12-10] MEDS: INSULIN LANTUS 100 UNITS/ML 10 ML VIAL SUBQ SCH ×2 (09:19→21:24)
[2022-12-10] MEDS: LEVOFLOXACIN 750 MG/D5W PREMIX 150 ML IV SCH (11:26)
[2022-12-10 12:00] VITALS: BP 124/69
[2022-12-10 16:00] VITALS: BP 130/62
[2022-12-10 20:00] VITALS: BP 116/65
[2022-12-10] MEDS: INSULIN LISPRO SLIDING SCALE 100 UNITS/ML VIAL SUBQ PRN (21:19)
--- NOTE | 2022-12-10 21:25 | NUR ---
ALL SCHEDULED MEDICATIONS ADMINISTERED. PATIENT IS AWAKE ALERT AND ORIENTED. ON 3L O2 VIA NC SATING 95%. NO DISTRESS NOTED. AMBULATORY. CALL LIGHT WITHIN REACH. NO COMPLAINTS OF PAIN AT THIS TIME. NEEDS ATTENDED TO.
[2022-12-11] MEDS: ALBUTEROL SULFATE/IPRATROPIU 3 ML SOL IH SCH ×5 (03:00→20:57)
[2022-12-11] MEDS: MORPHINE SULFATE 4 MG/ML SYR IVP PRN ×5 (03:01→21:49)
[2022-12-11 04:00] VITALS: BP 116/69
[2022-12-11 05:36] LABS: BASOPHILS % (AUTO) 0.3 % (0.0-2.0); HEMATOCRIT 34.5 % (36-48); HEMOGLOBIN 10.7 g/dL (12.0-16.0); LYMPHOCYTES # (AUTO) 1.1 K/uL (2.5-16.5); LYMPHOCYTES % (AUTO) 13.3 % (20.5-51.1); MEAN CORPUSCULAR HEMOGLOBIN 26 pg (27-31); MEAN CORPUSCULAR HGB CONC 31 g/dL (33-37); MEAN CORPUSCULAR VOLUME 84.2 fL (80-94); MONOCYTES # (AUTO) 0.2 K/uL (0.8-1.0); NEUTROPHILS % (AUTO) 83.4 % (42.2-75.2); PLATELET COUNT (AUTO) 344 K/uL (140-450); RED BLOOD CELL COUNT(AUTO) 4.09 MIL/uL (4.20-5.40); RED CELL DISTRIBUTION WIDTH 18.7 % (11.6-13.7); WHITE BLOOD COUNT (AUTO) 8.4 K/uL (4.8-10.8)
[2022-12-11 05:52] LABS: ANION GAP 12.3 (8-16); CARBON DIOXIDE 30.1 mmol/L (21-32); CREATININE 0.7 mg/dL (0.6-1.3); POTASSIUM 5.4 mmol/L (3.5-5.1)
--- NOTE | 2022-12-11 06:09 | NUR ---
PATIENT IS ON AND OFF OXYGEN AT 3L NC.
[2022-12-11] MEDS: BLOOD GLUCOSE MONITORING 1 DEV DEV FS SCH ×4 (06:50→20:42)
--- NOTE | 2022-12-11 06:50 | NUR ---
BLOOD SUGAR CHECKED WAS 278, ADMINISTERED HUMALOG INSULIN ORDERED PER SLIDING SCALE.
[2022-12-11] MEDS: INSULIN LISPRO SLIDING SCALE 100 UNITS/ML VIAL SUBQ PRN ×3 (06:51→20:45)
--- NOTE | 2022-12-11 07:15 | NUR ---
ASSUMED CONTINUITY OF CARE. INITIAL ASSESSMENT DONE. KEEP COMFORTABLE ON BED. CALL LIGHT WITHIN REACH.
--- NOTE | 2022-12-11 07:31 | NUR ---
GAVE REPORT TO DAY SHIFT NURSE JULIAN FOR CONTINUITY OF CARE. PATIENT IN STABLE CONDITION.
[2022-12-11 08:00] VITALS: BP 150/85
[2022-12-11] MEDS: INSULIN LISPRO 100 UNITS/ML VIAL SUBQ SCH ×3 (08:47→16:45)
[2022-12-11] MEDS: APIXABAN 2.5 MG TAB PO SCH ×2 (08:50→20:35)
[2022-12-11] MEDS: methylPREDNISolone SS 40 MG/ML VIAL IVP SCH ×2 (09:12→20:35)
[2022-12-11] MEDS: INSULIN LANTUS 100 UNITS/ML 10 ML VIAL SUBQ SCH ×2 (09:29→20:44)
[2022-12-11] MEDS: LEVOFLOXACIN 750 MG/D5W PREMIX 150 ML IV SCH (11:51)
--- NOTE | 2022-12-11 12:43 | NUR ---
ENDORSES BACK PAIN 8/10 MEDICATED WITH MORPHINE ORDERED
[2022-12-11] MEDS ORDERED: DOCUSATE SODIUM 100 MG GELCAP PO PRN (14:55)
--- NOTE | 2022-12-11 15:37 | NUR ---
12/11/22 RD INITIAL ASSESSMENT COMPLETED PLEASE REFER TO NUTRITION ASSESSMENT UNDER CARE ACTIVITY FOR ESTIMATED NUTRITIONAL NEEDS. 1. CONTINUE CCHO 60 GRAM DIET TOLERATED 2. PROVIDED DIABETES NUTRITION THERAPY EDUCATION. 3. MONITOR GI, PO INTAKE, LAB VALUES 4. RD TO FOLLOW-UP 3-5 DAYS, MODERATE RISK REVIEWED BY ANDREA HARDING RD
[2022-12-11] MEDS: BUDESONIDE 0.5 MG/2 ML NEBU INH SCH ×2 (17:39→21:05)
--- NOTE | 2022-12-11 17:43 | NUR ---
ENDORSES BACK PAIN 9/10 MEDICATED ORDERED
--- NOTE | 2022-12-11 19:20 | NUR ---
BEDSIDE REPORT GIVEN TO NABOR PLATA. IN STABLE CONDITION.
--- NOTE | 2022-12-11 19:21 | NUR ---
RECEIVED PT FROM MORNING SHIFT NURSE. PT IS AOX4, AMBULATORY, ABLE TO VERBALIZE NEEDS AND ABLE TO FOLLOW COMMANDS. PT HAS 3L NC AND ON CCHO DIET. PT HAS IV ON RIGHT FOREARM GAUGE 22, SALINE LOCKED. PT SKIN IS INTACT. NO COMPLAIN OF PAIN AT THIS TIME. NO S/S OF RESPIRATORY DISTRESS NOTED. ALL SAFETY MEASURES IMPLEMENTED. BED IN LOW POSITION. BED WHEELS ON LOCKED AND CALL LIGHT WITHIN REACH.
--- NOTE | 2022-12-11 19:40 | NUR ---
SJ ENEMA THROUGH COLOSTOMY DONE WITH ASSISTANCE FROM UMU PLATA. TOLERATED WELL. ENDORSED TO LORI PLATA. Addendum: 12/11/22 at 1955 by Thomas Rolon LVN LVN WRONG ENTRY. WRONG PATIENT.
[2022-12-11 20:00] VITALS: BP 125/74
--- NOTE | 2022-12-11 20:45 | NUR ---
ALL SCHEDULED AND PRESCRIBED MEDICATION WAS GIVEN TO PT PER MD ORDER. PT BLOOD GLUCOSE IS 241. HUMALOG INSULIN 4 UNTIS WAS GIVEN TO PT. ALL SAFETY MEASURES IMPLEMENTED. BED IN LOW POSITION. BED WHEELS ON LOCKED AND CALL LIGHT WITHIN REACH.
--- NOTE | 2022-12-11 21:49 | NUR ---
PRN PAIN MEDICATION WAS GIVEN TO PT DUE TO BACK PAIN WITH PAIN SCALE OF 8/10. ALL SAFETY MEASURES IMPLEMENTED. BED IN LOW POSITION. BED WHEELS ON LOCKED AND CALL LIGHT WITHIN REACH.
[2022-12-12] MEDS: ALBUTEROL SULFATE/IPRATROPIU 3 ML SOL IH SCH ×4 (00:39→11:40)
[2022-12-12] MEDS: MORPHINE SULFATE 4 MG/ML SYR IVP PRN ×4 (01:58→14:44)
--- NOTE | 2022-12-12 01:58 | NUR ---
PRN PAIN MEDICATION WAS GIVEN TO PT DUE TO BACK PAIN WITH THE PAIN SCALE OF 8/10. ALL SAFETY MEASURES IMPLEMENTED. BE DIN LOW POSITION, BED WHEELS ON LOCK AND CALL LIGHT WITHIN REACH.
[2022-12-12 04:00] VITALS: BP 135/74
--- NOTE | 2022-12-12 04:00 | NUR ---
PT IS SLEEPING. CHEST RISE AND FALL SYMMETRICALLY NOTED. RESPIRATION IS EVEN AND UNLABORED. ALL SAFETY MEASURES IMPLEMENTED. BED IN LOW POSITION, BED WHEELS ON LOCK AND CALL LIGHT WITHIN REACH.
[2022-12-12] MEDS: BLOOD GLUCOSE MONITORING 1 DEV DEV FS SCH ×3 (06:31→16:47)
[2022-12-12] MEDS: INSULIN LISPRO SLIDING SCALE 100 UNITS/ML VIAL SUBQ PRN ×3 (06:32→16:49)
--- NOTE | 2022-12-12 06:32 | NUR ---
PT BLOOD GLUCOSE IS 322. HUMALOG INSULIN 8 UNITS WAS GIVEN TO PT. ALL SAFETY MEASURES IMPLEMENTED. BE DIN LOW POSITION, BED WHEELS ON LOCK AND CALL LIGHT WITHIN REACH.
--- NOTE | 2022-12-12 07:25 | NUR ---
PT IS STABLE. ENDORSED PT TO THE MORNING SHIFT NURSE FOR CONTINUITY OF CARE.
--- NOTE | 2022-12-12 07:25 | NUR ---
ASSUMED CONTINUITY OF CARE. INITIAL ASSESSMENT DONE. KEEP COMFORTABLE ON BED. CALL LIGHT WITHIN REACH.
[2022-12-12 08:00] VITALS: BP 152/67
--- NOTE | 2022-12-12 08:00 | NUR ---
Patient's Plan of Care was discussed and reviewed with WELLNESS CONSULTANT:
[2022-12-12] MEDS: INSULIN LISPRO 100 UNITS/ML VIAL SUBQ SCH ×3 (08:48→16:50)
[2022-12-12] MEDS: INSULIN LANTUS 100 UNITS/ML 10 ML VIAL SUBQ SCH (08:49)
[2022-12-12] MEDS: APIXABAN 2.5 MG TAB PO SCH (09:08)
[2022-12-12] MEDS: methylPREDNISolone SS 40 MG/ML VIAL IVP SCH (09:47)
[2022-12-12] MEDS: LEVOFLOXACIN 750 MG/D5W PREMIX 150 ML IV SCH (11:27)
[2022-12-12] MEDS: BUDESONIDE 0.5 MG/2 ML NEBU INH SCH (11:34)
[2022-12-12] MEDS ORDERED: ALBU0.0912 IH (16:11)
[2022-12-12] MEDS ORDERED: SERT50TA PO (16:11)
[2022-12-12] MEDS ORDERED: PRED20TA5 PO (16:15)
[2022-12-12] MEDS ORDERED: LEVO750T75 PO (16:15)
--- NOTE | 2022-12-12 16:55 | NUR ---
D/C HOME IN STABLE CONDITION. INFORMED CHARGE NURSE LUIS PLATA.
== END 2022-12-12 16:55 | disposition home or self-care (01) | DRG 637 ==
LOC: MED 15:04 → MTU 17:25 → OBSVTOIN 17:25 → MTU 20:58 → MIC 12-07 11:07 → MTU 12-08 20:32 → MMU 12-08 22:29
PROVIDERS: ADMIT Student in an Organized Health Care Education/Training Program; ATTEND Student in an Organized Health Care Education/Training Program
DX: E11.10 Type 2 diabetes mellitus with ketoacidosis without coma (principal); J96.21 Acute and chronic respiratory failure with hypoxia; R64 Cachexia; D84.9 Immunodeficiency, unspecified; E11.65 Type 2 diabetes mellitus with hyperglycemia; Z20.822 Contact with and (suspected) exposure to COVID-19; J43.9 Emphysema, unspecified; I48.91 Unspecified atrial fibrillation; K21.9 Gastro-esophageal reflux disease without esophagitis; F17.200 Nicotine dependence, unspecified, uncomplicated; E78.5 Hyperlipidemia, unspecified; I50.9 Heart failure, unspecified; I11.0 Hypertensive heart disease with heart failure; Z68.22 Body mass index [BMI] 22.0-22.9, adult; Z88.8 Allergy status to other drugs, medicaments and biological substances; Z88.0 Allergy status to penicillin; Z85.118 Personal history of other malignant neoplasm of bronchus and lung; Z79.4 Long term (current) use of insulin; Z90.49 Acquired absence of other specified parts of digestive tract
CPT/HCPCS: 36415; 71045; 80048; 80053; 82948; 83880; 84484; 85025; 87081; 93005; 94640; 96374; 96375; 99285; J1644; J1815; J1885; J1956; J2270; J2920; J7512; J7613; J7626

== ENCOUNTER 2023-01-11 12:15 | Observation (INO) | payer OTHER ==
[~2023-01-11] VITALS: Ht 157.5 cm; Wt 54.4 kg
[2023-01-11] MEDS: methylPREDNISolone SS 40 MG/ML VIAL IVP SCH ×2 (05:00→21:18)
[~2023-01-11 12:15] MED LIST changes: -AZIT250T3 PO; -CYCL-654 PO; +LEVO750T75 PO; +MONT-72 PO; -MONT10TA35 PO; -MUC104 INH; -ROBAC PO
[2023-01-11 12:24] VITALS: BP 147/91
[2023-01-11] MEDS ORDERED: ALBUTEROL 0.083% 2.5 MG/3 ML NEBU INH ONE ×4 (12:35→14:00)
[2023-01-11] MEDS ORDERED: IPRATROPIUM 0.02% 0.5 MG/2.5 ML NEBU INH ONE ×2 (12:35→12:41)
[2023-01-11] MEDS ORDERED: MAG SULF 2000 MG/WATER PREMIX 50 ML IV ONE (12:35)
[2023-01-11] MEDS ORDERED: methylPREDNISolone SS 125 MG/2 ML VIAL IVP ONE (12:35)
--- NOTE | 2023-01-11 12:43 | NUR ---
[facility] THERAPY AND RESPIRATORY DRUGS GIVEN ORDERED
[2023-01-11 13:29] LABS: ALBUMIN 3.9 g/dL (3.4-5.0); ANION GAP 14.1 (8-16); CARBON DIOXIDE 29.9 mmol/L (21-32); CREATININE 0.8 mg/dL (0.6-1.3); TOTAL BILIRUBIN 0.4 mg/dL (0.0-1.0)
[2023-01-11] MEDS ORDERED: methylPREDNISolone SS 125 MG/2 ML VIAL ONE (13:41)
[2023-01-11] MEDS ORDERED: LEVOFLOXACIN 750 MG/D5W PREMIX 150 ML IV ONE (13:45)
[2023-01-11 13:52] LABS: BASOPHILS # (AUTO) 0.1 K/uL (0.00-0.22); BASOPHILS % (AUTO) 0.4 % (0.0-2.0); EOSINOPHILS % (AUTO) 0.1 % (0.0-4.0); HEMATOCRIT 37.2 % (36-48); LYMPHOCYTES # (AUTO) 1.6 K/uL (2.5-16.5); LYMPHOCYTES % (AUTO) 13.6 % (20.5-51.1); MEAN CORPUSCULAR HEMOGLOBIN 26 pg (27-31); MEAN CORPUSCULAR HGB CONC 32 g/dL (33-37); MEAN CORPUSCULAR VOLUME 81.5 fL (80-94); MONOCYTES # (AUTO) 0.5 K/uL (0.8-1.0); MONOCYTES % (AUTO) 4.1 % (1.7-9.3); NEUTROPHILS # (AUTO) 9.5 K/uL (1.8-7.7); NEUTROPHILS % (AUTO) 81.8 % (42.2-75.2); PLATELET COUNT (AUTO) 391 K/uL (140-450); RED BLOOD CELL COUNT(AUTO) 4.57 MIL/uL (4.20-5.40); RED CELL DISTRIBUTION WIDTH 17.9 % (11.6-13.7); WHITE BLOOD COUNT (AUTO) 11.6 K/uL (4.8-10.8)
[2023-01-11] MEDS ORDERED: NACL 0.9% 1,000 ML IV ONE (13:55)
[2023-01-11] MEDS ORDERED: MORPHINE SULFATE 4 MG/ML SYR IVP ONE (14:00)
--- NOTE | 2023-01-11 15:00 | NUR ---
Patient will be admitted to care of DR BAUTISTA. Admited to TELE. Will go to room 127B. Belongings list completed. Report to JONY.
[2023-01-11] MEDS ORDERED: LISPRO (15:02)
[2023-01-11] MEDS ORDERED: INSU100S22 SUBQ (15:02)
--- NOTE | 2023-01-11 15:15 | NUR ---
ADMITTED FROM ER VIA [facility]. A & O X4. SPEECH CLEAR. NO SOB, NOTED. SKIN WARM, DRY AND INTACT. PUT ON 02 AT 2L VIA [place]. KEEP COMFORTABLE ON BED. LEVAQUIN 750 MG IVPB STARTED IN ER AND INFUSING STILL RIGHT NOW. EXPLAINED DIAGNOSIS, PLAN OF CARE, USE OF CALL LIGHT/BED/TV/BATHROOM. VERBALIZED UNDERSTANDING. CALL LIGHT WITHIN REACH.
[2023-01-11 15:30] VITALS: BP 148/82
--- NOTE | 2023-01-11 15:47 | NUR ---
INFORMED DR. GRIMM ABOUT PUTTING ADDITIONAL ADMISSION ORDER AND PT. CODE STATUS. INFORMED CHARGE NURSE LAURA PLATA.
[2023-01-11] MEDS ORDERED: DEXTROSE 50% 50 ML SYR IVP PRN (16:25)
[2023-01-11] MEDS: BLOOD GLUCOSE MONITORING 1 DEV DEV FS SCH ×2 (16:41→21:19)
[2023-01-11] MEDS: INSULIN LISPRO SLIDING SCALE 100 UNITS/ML VIAL SUBQ PRN ×2 (16:42→21:13)
--- NOTE | 2023-01-11 18:12 | NUR ---
PAGED DR. GRIMM AND ASKED PAIN MEDS PRN ORDER AND PT. PREFERRED MORPHINE FOR C/O CHEST PAIN AND BACK PAIN. DR. GRIMM RESPONDED "NO." INFORMED CHARGE NURSE LAURA PLATA.
--- NOTE | 2023-01-11 19:06 | NUR ---
BEDSIDE REPORT GIVEN TO SAÚL PLATA. IN STABLE CONDITION. ALSO ENDORSED TO FOLLOW UP WITH DR. GRIMM PT. ADDITIONAL ADMISSION ORDERS.
[2023-01-11] MEDS ORDERED: ALBUTEROL SULFATE/IPRATROPIU 3 ML SOL IH ONE (19:48)
--- NOTE | 2023-01-11 19:50 | NUR ---
RECEIVED REPORT OF PT IN STABLE CONDITION.RESP UNLABORED W/O2 AT 2L/NC.HR IS SR.VS STABLE.SL PATENT.HAS PAIN .NO PAIN MED ORDER.PAGED FOR ORDER.WILL F/U.CALL LIGHT IN REACH.
[2023-01-11] MEDS ORDERED: ONDANSETRON 4 MG/2 ML VIAL IVP PRN (19:55)
[2023-01-11] MEDS ORDERED: ACETAMINOPHEN 325 MG TAB PO PRN (19:55)
[2023-01-11] MEDS ORDERED: HYDROcodone/APAP 5/325 MG 1 TAB TAB PO PRN (19:55)
[2023-01-11] MEDS ORDERED: LORazepam 1 MG TAB PO PRN (19:55)
[2023-01-11] MEDS ORDERED: ZOLPIDEM 5 MG TAB PO PRN (19:55)
[2023-01-11 20:00] VITALS: BP 143/79
[2023-01-11] MEDS ORDERED: INSULIN LISPRO SLIDING SCALE 100 UNITS/ML VIAL SUBQ PRN (20:15)
[2023-01-11] MEDS ORDERED: BLOOD GLUCOSE MONITORING 1 DEV DEV FS SCH (21:00)
[2023-01-11] MEDS: APIXABAN 2.5 MG TAB PO SCH (21:19)
[2023-01-11] MEDS ORDERED: HYDROcodone/APAP 5/325 MG 1 TAB TAB PO ONE (22:10)
--- NOTE | 2023-01-11 23:00 | NUR ---
HAD STILL PAIN JAD BENAVIDES.HE INCREASED DOSE ON NORCO TO 10MG.ONE EXTRA NORCO 5 MG GIVEN.
[2023-01-11] MEDS: ALBUTEROL SULFATE/IPRATROPIU 3 ML SOL IH SCH (23:10)
[2023-01-12] VITALS: BP 143/79
[2023-01-12] MEDS ORDERED: methylPREDNISolone SS 40 MG/ML VIAL IVP SCH
--- NOTE | 2023-01-12 00:15 | NUR ---
PT'S CONDITION STABLE NO SOB NOTED.HR IS SR.
[2023-01-12] MEDS: HYDROcodone/APAP 10/325 MG 1 TAB TAB PO PRN ×3 (00:54→09:11)
[2023-01-12] MEDS ORDERED: ALBUTEROL SULFATE/IPRATROPIU 3 ML SOL IH SCH ×3 (01:00→03:00)
[2023-01-12 04:00] VITALS: BP 130/63
--- NOTE | 2023-01-12 04:15 | NUR ---
SLEEPING.NO SOB NOTED.HR IS SR.
[2023-01-12] MEDS: ALBUTEROL SULFATE/IPRATROPIU 3 ML SOL IH SCH ×4 (05:00→16:13)
[2023-01-12] MEDS: BLOOD GLUCOSE MONITORING 1 DEV DEV FS SCH ×3 (05:20→16:38)
[2023-01-12] MEDS: methylPREDNISolone SS 40 MG/ML VIAL IVP SCH ×2 (05:21→13:32)
[2023-01-12 06:11] LABS: BASOPHILS % (AUTO) 0.1 % (0.0-2.0); HEMATOCRIT 31.4 % (36-48); LYMPHOCYTES # (AUTO) 0.9 K/uL (2.5-16.5); LYMPHOCYTES % (AUTO) 12.2 % (20.5-51.1); MEAN CORPUSCULAR HEMOGLOBIN 26 pg (27-31); MEAN CORPUSCULAR HGB CONC 32 g/dL (33-37); MEAN CORPUSCULAR VOLUME 82.3 fL (80-94); MONOCYTES # (AUTO) 0.2 K/uL (0.8-1.0); MONOCYTES % (AUTO) 2.2 % (1.7-9.3); NEUTROPHILS # (AUTO) 6.4 K/uL (1.8-7.7); NEUTROPHILS % (AUTO) 85.5 % (42.2-75.2); PLATELET COUNT (AUTO) 326 K/uL (140-450); RED BLOOD CELL COUNT(AUTO) 3.81 MIL/uL (4.20-5.40); RED CELL DISTRIBUTION WIDTH 17.6 % (11.6-13.7); WHITE BLOOD COUNT (AUTO) 7.5 K/uL (4.8-10.8)
[2023-01-12] MEDS: INSULIN LISPRO SLIDING SCALE 100 UNITS/ML VIAL SUBQ PRN ×2 (06:21→16:39)
[2023-01-12 06:54] LABS: ALBUMIN 3.1 g/dL (3.4-5.0); ANION GAP 16.3 (8-16); CARBON DIOXIDE 25.9 mmol/L (21-32); CREATININE 0.8 mg/dL (0.6-1.3); MAGNESIUM 1.6 mg/dL (1.8-2.4); POTASSIUM 5.2 mmol/L (3.5-5.1); TOTAL BILIRUBIN 0.3 mg/dL (0.0-1.0)
--- NOTE | 2023-01-12 07:11 | NUR ---
ASSUMED CONTINUITY OF CARE. INITIAL ASSESSMENT DONE. KEEP COMFORTABLE ON BED. CALL LIGHT WITHIN REACH.
--- NOTE | 2023-01-12 07:11 | NUR ---
ENDORSED TO AM NURSE IN STABLE CONDITION.
[2023-01-12] MEDS ORDERED: BUDESONIDE 0.5 MG/2 ML NEBU INH SCH (07:30)
[2023-01-12 08:00] VITALS: BP 100/64
--- NOTE | 2023-01-12 08:00 | NUR ---
Patient's Plan of Care was discussed and reviewed with SAND DIGGER: JULIAN GASTON
[2023-01-12] MEDS ORDERED: DOCUSATE SODIUM 100 MG GELCAP PO SCH (09:00)
[2023-01-12] MEDS ORDERED: MONTELUKAST SODIUM 10 MG TAB PO SCH (09:00)
[2023-01-12] MEDS ORDERED: PANTOPRAZOLE 40 MG TABEC PO SCH (09:00)
[2023-01-12] MEDS ORDERED: SERTRALINE 50 MG TAB PO SCH (09:00)
[2023-01-12] MEDS: APIXABAN 2.5 MG TAB PO SCH (09:06)
[2023-01-12] MEDS: ACETYLCYSTEINE 20% (200 MG/ML) 200 MG/ML VIAL INH SCH ×2 (11:39→16:18)
[2023-01-12 12:00] VITALS: BP 126/57
[2023-01-12] MEDS ORDERED: INSULIN LANTUS 100 UNITS/ML 10 ML VIAL SUBQ SCH (13:45)
--- NOTE | 2023-01-12 13:47 | NUR ---
DR. GRIMM SPOKE TO PT. AT BEDSIDE.
[2023-01-12] MEDS ORDERED: PRED20TA5 PO (13:50)
[2023-01-12] MEDS ORDERED: MORPHINE SULFATE 4 MG/ML SYR IVP PRN (13:50)
[2023-01-12] MEDS ORDERED: INSULIN LISPRO 100 UNITS/ML VIAL SUBQ SCH (14:00)
[2023-01-12] MEDS ORDERED: MAGNESIUM OXIDE 400 MG TAB PO SCH (14:30)
[2023-01-12 16:00] VITALS: BP 116/56
--- NOTE | 2023-01-12 17:10 | NUR ---
D/C HOME VIA WHEELCHAIR. NO C/O PAIN. NO SOB, NOTED. IN STABLE CONDITION. INFORMED CHARGE NURSE ELIJAH PLATA.
--- NOTE | 2023-01-14 15:58 | NUR ---
CALLED DR MORALEZ'S OFFICE LOCATED [id number] [place], [place] [id number].SPOKE WITH JOSR WHO HELPED ME MAKE FOLLOW UP APPOINTMENT FOR 01/17/2023 AT 3619. CALLED PT PT DIDN'T ANSWER BUT MESSAGE WAS LEFT IN VOICE MAIL.
== END 2023-01-12 17:17 | disposition home or self-care (01) ==
LOC: MED 12:15 → MTU 14:41 → MMU 15:01
PROVIDERS: ADMIT Hospitalist; ATTEND Hospitalist
DX: J44.1 Chronic obstructive pulmonary disease with (acute) exacerbation (principal); Z20.822 Contact with and (suspected) exposure to COVID-19; J96.21 Acute and chronic respiratory failure with hypoxia; E11.65 Type 2 diabetes mellitus with hyperglycemia; E78.5 Hyperlipidemia, unspecified; I10 Essential (primary) hypertension; E44.0 Moderate protein-calorie malnutrition; I26.99 Other pulmonary embolism without acute cor pulmonale; I82.409 Acute embolism and thrombosis of unspecified deep veins of unspecified lower extremity; Z79.01 Long term (current) use of anticoagulants; Z87.891 Personal history of nicotine dependence; Z79.899 Other long term (current) drug therapy; Z85.118 Personal history of other malignant neoplasm of bronchus and lung; Z88.0 Allergy status to penicillin
CPT/HCPCS: 36415; 71045; 80053; 82947; 82948; 83605; 83735; 83880; 84100; 84484; 85025; 87040; 87081; 87426; 94640; 94760; 96365; 96366; 96372; 96375; 96376; 99284; G0378; J1644; J1815; J1956; J2270; J2920; J2930; J3475; J7608; J7613; J7626; J7644; Q0092

== ENCOUNTER 2023-01-31 09:45 | Emergency (ER) | payer OTHER ==
[~2023-01-31] VITALS: Ht 157.5 cm; Wt 54.4 kg
[~2023-01-31 09:45] MED LIST changes: +LISPRO
[2023-01-31 09:56] VITALS: BP 165/99
--- NOTE | 2023-01-31 10:00 | NUR ---
68/F WALKED IN C/O ELEVATED SUGAR NOTICED 3 AM YESTERDAY. PT REPORTS READING "HI" AT HOME. BS AT TRIAGE [id number]. PT REPORTS TAKING INSULIN 10 UNITS AND METFORMIN AT 3AM. PMH: COPD, DM, GERD, ASTHMA
--- NOTE | 2023-01-31 10:31 | NUR ---
PT AMBULATED TO BED 4
--- NOTE | 2023-01-31 10:42 | NUR ---
DR. ROSS EVALUATING PATIENT AT BEDSIDE.
[2023-01-31] MEDS ORDERED: IPRATROPIUM 0.02% 0.5 MG/2.5 ML NEBU INH ONE (10:45)
[2023-01-31] MEDS ORDERED: NACL 0.9% 1,000 ML IV ONE (10:45)
[2023-01-31] MEDS ORDERED: methylPREDNISolone SS 125 MG/2 ML VIAL IVP ONE (10:45)
[2023-01-31] MEDS ORDERED: ALBUTEROL 0.083% 2.5 MG/3 ML NEBU INH ONE (10:45)
[2023-01-31 11:22] LABS: BASOPHILS % (AUTO) 0.6 % (0.0-2.0); EOSINOPHILS % (AUTO) 0.3 % (0.0-4.0); HEMATOCRIT 32.5 % (36-48); HEMOGLOBIN 10.3 g/dL (12.0-16.0); LYMPHOCYTES # (AUTO) 1.5 K/uL (2.5-16.5); LYMPHOCYTES % (AUTO) 19.5 % (20.5-51.1); MEAN CORPUSCULAR HEMOGLOBIN 26 pg (27-31); MEAN CORPUSCULAR HGB CONC 32 g/dL (33-37); MEAN CORPUSCULAR VOLUME 82.5 fL (80-94); MONOCYTES # (AUTO) 0.4 K/uL (0.8-1.0); MONOCYTES % (AUTO) 4.7 % (1.7-9.3); NEUTROPHILS # (AUTO) 5.8 K/uL (1.8-7.7); NEUTROPHILS % (AUTO) 74.9 % (42.2-75.2); PLATELET COUNT (AUTO) 329 K/uL (140-450); RED BLOOD CELL COUNT(AUTO) 3.94 MIL/uL (4.20-5.40); RED CELL DISTRIBUTION WIDTH 18.2 % (11.6-13.7); WHITE BLOOD COUNT (AUTO) 7.7 K/uL (4.8-10.8)
[2023-01-31 11:39] LABS: ALBUMIN 3.4 g/dL (3.4-5.0); ANION GAP 13.4 (8-16); CARBON DIOXIDE 29.4 mmol/L (21-32); CREATININE 0.9 mg/dL (0.6-1.3); POTASSIUM 5.8 mmol/L (3.5-5.1); TOTAL BILIRUBIN 0.2 mg/dL (0.0-1.0)
[2023-01-31 11:41] LABS: MAGNESIUM 1.5 mg/dL (1.8-2.4); PHOSPHORUS 4.3 mg/dL (2.5-4.9)
[2023-01-31] MEDS ORDERED: KETOROLAC 15 MG/ML VIAL IVP ONE (11:45)
[2023-01-31 11:51] LABS: ACETONE, SERUM NEGATIVE (NEGATIVE)
[2023-01-31] MEDS ORDERED: INSULIN REGULAR, HUMAN 100 UNIT/ML VIAL SUBQ ONE (12:15)
[2023-01-31] MEDS ORDERED: INSULIN REGULAR, HUMAN 100 UNIT/ML VIAL IV ONE (12:45)
--- NOTE | 2023-01-31 12:47 | NUR ---
INSULIN R 10 UNITS GIVEN IV PER DR ROSS
[2023-01-31] MEDS ORDERED: HYDROcodone/APAP 10/325 MG 1 TAB TAB PO ONE (12:50)
[2023-01-31] MEDS ORDERED: ALBUTEROL SULFATE/IPRATROPIU 3 ML SOL IH SCH (13:00)
[2023-01-31] MEDS ORDERED: ACETYLCYSTEINE 10% (100 MG/ML) 100 MG/ML VIAL INH SCH (13:00)
--- NOTE | 2023-01-31 13:55 | NUR ---
PAIN RESOLVING, DRINKING DIET SODA WATER
[2023-01-31 14:29] VITALS: BP 148/89
== END 2023-01-31 14:29 | disposition home or self-care (01) ==
LOC: MED 09:45
DX: J44.1 Chronic obstructive pulmonary disease with (acute) exacerbation (principal); E11.65 Type 2 diabetes mellitus with hyperglycemia; I48.91 Unspecified atrial fibrillation; I50.9 Heart failure, unspecified; K21.9 Gastro-esophageal reflux disease without esophagitis; Z85.118 Personal history of other malignant neoplasm of bronchus and lung; Z86.718 Personal history of other venous thrombosis and embolism; Z79.899 Other long term (current) drug therapy; Z79.2 Long term (current) use of antibiotics; Z79.4 Long term (current) use of insulin; Z79.01 Long term (current) use of anticoagulants; Z88.8 Allergy status to other drugs, medicaments and biological substances; Z88.0 Allergy status to penicillin
CPT/HCPCS: 36415; 71045; 80053; 82009; 82948; 83735; 83880; 84100; 84484; 85025; 93005; 94640; 96361; 96374; 96375; 99285; J1815; J1885; J2930; J7030; J7613; J7644; Q0092

== ENCOUNTER 2023-02-03 17:26 | Inpatient (IN) | payer OTHER ==
[~2023-02-03] VITALS: Ht 157.5 cm; Wt 59.0 kg
[2023-02-03 17:44] VITALS: BP 165/98
[2023-02-03] MEDS ORDERED: ONDANSETRON 4 MG/2 ML VIAL IVP ONE (18:25)
[2023-02-03] MEDS ORDERED: methylPREDNISolone SS 125 MG/2 ML VIAL IVP ONE (18:25)
[2023-02-03] MEDS ORDERED: MORPHINE SULFATE 4 MG/ML SYR IVP ONE (18:25)
[2023-02-03] MEDS ORDERED: ALBUTEROL 0.083% 2.5 MG/3 ML NEBU INH ONE (18:25)
[2023-02-03] MEDS ORDERED: IPRATROPIUM 0.02% 0.5 MG/2.5 ML NEBU INH ONE (18:25)
[2023-02-03] MEDS ORDERED: NACL 0.9% 1,000 ML IV ONE ×2 (18:45→20:25)
[2023-02-03 19:00] LABS: BASOPHILS % (AUTO) 0.7 % (0.0-2.0); EOSINOPHILS % (AUTO) 0.1 % (0.0-4.0); HEMATOCRIT 32.9 % (36-48); HEMOGLOBIN 10.3 g/dL (12.0-16.0); LYMPHOCYTES % (AUTO) 15.5 % (20.5-51.1); MEAN CORPUSCULAR HEMOGLOBIN 26 pg (27-31); MEAN CORPUSCULAR HGB CONC 31 g/dL (33-37); MEAN CORPUSCULAR VOLUME 83.6 fL (80-94); MONOCYTES # (AUTO) 0.3 K/uL (0.8-1.0); MONOCYTES % (AUTO) 5.4 % (1.7-9.3); NEUTROPHILS # (AUTO) 4.9 K/uL (1.8-7.7); NEUTROPHILS % (AUTO) 78.3 % (42.2-75.2); PLATELET COUNT (AUTO) 391 K/uL (140-450); RED BLOOD CELL COUNT(AUTO) 3.94 MIL/uL (4.20-5.40); RED CELL DISTRIBUTION WIDTH 18.6 % (11.6-13.7); WHITE BLOOD COUNT (AUTO) 6.3 K/uL (4.8-10.8)
[2023-02-03 19:31] LABS: ALBUMIN 3.4 g/dL (3.4-5.0); ASPARTATE AMINOTRANSFERASE 41 U/L (15-37); CARBON DIOXIDE 20.3 mmol/L (21-32); CHLORIDE 92 mmol/L (98-107); CREATININE 0.9 mg/dL (0.6-1.3); GFR ARICAN-AMERICAN 81 mL/min (>90); LIPASE 51 U/L (73-393); SODIUM SERUM 129 mmol/L (136-145); TOTAL BILIRUBIN 0.6 mg/dL (0.0-1.0); UREA NITROGEN, BLOOD 19 mg/dL (7-18)
[2023-02-03 19:35] LABS: GLUCOSE 749 mg/dL (74-106)
--- NOTE | 2023-02-03 19:44 | NUR ---
Patient resting in bed, A/Ox4, chest rise and fall symmetrical, no c/o pain or s/s of distress, on monitor.
[2023-02-03] MEDS ORDERED: INSULIN REGULAR, HUMAN 100 UNIT in NACL 0.9% 100 ML IV ONE ×4 (20:15→20:50)
[2023-02-03 20:23] LABS: ANION GAP 23.2 (8-16)
[2023-02-03 20:24] LABS: POTASSIUM 6.5 mmol/L (3.5-5.1)
[2023-02-03] MEDS ORDERED: MAGNESIUM OXIDE 400 MG TAB PO PRN (20:50)
[2023-02-03] MEDS ORDERED: KCL 20 MEQ IN 100 mL PREMIX 200 ML IV PRN (20:50)
[2023-02-03] MEDS ORDERED: HYDROcodone/APAP 5/325 MG 1 TAB TAB PO PRN (20:50)
[2023-02-03] MEDS ORDERED: INSULIN REGULAR, HUMAN 100 UNIT/ML VIAL IV ONE (20:50)
[2023-02-03] MEDS ORDERED: ACETAMINOPHEN 325 MG TAB PO PRN (20:50)
[2023-02-03] MEDS ORDERED: ONDANSETRON 4 MG/2 ML VIAL IVP PRN (20:50)
[2023-02-03] MEDS ORDERED: POTASSIUM CHLORIDE 10 MEQ TABER PO PRN (20:50)
[2023-02-03] MEDS ORDERED: INSULIN REGULAR, HUMAN 100 UNIT in NACL 0.9% 100 ML IV SCH ×2 (20:55)
[2023-02-03] MEDS ORDERED: NACL 0.9% 1,000 ML IV SCH ×2 (20:55→21:40)
[2023-02-03] MEDS ORDERED: DEXTROSE 50% 50 ML SYR IVP PRN (20:55)
[2023-02-03] MEDS ORDERED: DEXT 5% / NACL 0.45% 1,000 ML IV SCH ×2 (20:55→21:40)
[2023-02-03] MEDS ORDERED: DEXT 5% /NACL 0.9% 1,000 ML IV SCH (20:55)
[2023-02-03] MEDS: BLOOD GLUCOSE MONITORING 1 DEV DEV FS SCH ×3 (21:12→23:02)
--- NOTE | 2023-02-03 22:00 | NUR ---
INTESIVIST DR. HOLLOWAY AT BEDSIDE
[2023-02-03] MEDS: MORPHINE SULFATE 2 MG/ML SYR IVP PRN (22:29)
--- NOTE | 2023-02-03 22:55 | NUR ---
Patient resting in bed, A/Ox4, chest rise and fall symmetrical, no c/o pain or s/s of distress, on monitor.
--- NOTE | 2023-02-03 23:00 | NUR ---
Patient resting in bed, A/Ox4, chest rise and fall symmetrical, no c/o pain or s/s of distress, on monitor.
--- NOTE | 2023-02-03 23:10 | NUR ---
Patient will be admitted to care of Dr. Asher. Admited to ICU. Will go to room 6. Belongings list completed. Report to Denise ANGULO. Denise ANGULO verbalized understanding of report, no further questions.
[2023-02-03 23:20] VITALS: BP 149/78
--- NOTE | 2023-02-03 23:20 | NUR ---
ADMITTED PT. FROM ER AND REPORT GIVEN BY ADELE SANDOVAL. PT. ALERT AND ORIENTED. ABLE TO EXPRESS NEEDS. ON NASAL CANULA 3L AND O2 SAT 100%. BILATERAL LUNGS COARSE, CRACKLES. ON SINUS RHYTHM ON THE MONITOR. IV TO RIGHT FOREARM 22G PATENT AND INTACT RUNNING NS AT 200 ML/HR. IV TO LEFT FOREARM 22G PATENT AND INTACT, INFUSING INSULIN DRIP AT 0.1 UNITS/KG/HR. PT. NPO EXCEPT. MEDS. PT. ABLE TO GO TO THE BATHROOM WITH MINIMAL ASSISTANCE. NO S/S OF PAIN AND WILL ENDORSE TO THE NEXT SHIFT.
[2023-02-04] VITALS (15 sets, daily range): BP systolic 116–147; BP diastolic 62–81
[2023-02-04] MEDS: BLOOD GLUCOSE MONITORING 1 DEV DEV FS SCH ×17 (00:24→20:56)
[2023-02-04] MEDS: ALBUTEROL SULFATE/IPRATROPIU 3 ML SOL IH SCH ×4 (00:54→20:13)
[2023-02-04 00:57] LABS: MAGNESIUM 1.4 mg/dL (1.8-2.4); PHOSPHORUS 3.7 mg/dL (2.5-4.9)
[2023-02-04] MEDS: methylPREDNISolone SS 40 MG in WATER STERILE 1 ML IV SCH ×2 (01:00→06:35)
[2023-02-04] MEDS ORDERED: DEXTROSE 50% 50 ML SYR IVP PRN ×2 (01:05→17:10)
[2023-02-04 01:09] LABS: ANION GAP 16.7 (8-16); CARBON DIOXIDE 22.5 mmol/L (21-32); POTASSIUM 4.2 mmol/L (3.5-5.1)
[2023-02-04] MEDS: NACL 0.9% 1,000 ML IV SCH ×5 (01:18→23:15)
--- NOTE | 2023-02-04 01:18 | NUR ---
BLOOD SUGAR RESULT 213 AND ON INSULIN DRIP 0.1 UNITS/KG/HR.
[2023-02-04] MEDS ORDERED: methylPREDNISolone SS 40 MG/ML VIAL ONE ×2 (02:44→06:33)
[2023-02-04] MEDS ORDERED: WATER STERILE 10 ML MC ONE ×2 (02:44→06:33)
[2023-02-04] MEDS: MORPHINE SULFATE 2 MG/ML SYR IVP PRN ×4 (02:49→15:33)
[2023-02-04 04:27] LABS: BASOPHILS % (AUTO) 0.8 % (0.0-2.0); EOSINOPHILS % (AUTO) 0.3 % (0.0-4.0); HEMATOCRIT 30.4 % (36-48); HEMOGLOBIN 9.5 g/dL (12.0-16.0); LYMPHOCYTES # (AUTO) 0.8 K/uL (2.5-16.5); LYMPHOCYTES % (AUTO) 15.7 % (20.5-51.1); MEAN CORPUSCULAR HEMOGLOBIN 26 pg (27-31); MEAN CORPUSCULAR HGB CONC 31 g/dL (33-37); MEAN CORPUSCULAR VOLUME 81.7 fL (80-94); MONOCYTES # (AUTO) 0.1 K/uL (0.8-1.0); MONOCYTES % (AUTO) 2.5 % (1.7-9.3); NEUTROPHILS # (AUTO) 3.9 K/uL (1.8-7.7); NEUTROPHILS % (AUTO) 80.7 % (42.2-75.2); PLATELET COUNT (AUTO) 318 K/uL (140-450); RED BLOOD CELL COUNT(AUTO) 3.71 MIL/uL (4.20-5.40); RED CELL DISTRIBUTION WIDTH 17.5 % (11.6-13.7); WHITE BLOOD COUNT (AUTO) 4.9 K/uL (4.8-10.8)
--- NOTE | 2023-02-04 04:29 | NUR ---
BLOOD SUGAR RESULT AT THIS TIME 71, ON INSULIN DRIP 0.5 UNITS/KG/HR, D5 1/2 NS AT 200 ML/HR. AND PAGED DR. FITZGERALD FOR FURTHER ORDER.
--- NOTE | 2023-02-04 04:45 | NUR ---
DR. FITZGERALD CALLED BACK REPORTED BLOOD SUGAR AT 0429 OF 71 AND AT 0317 BLOOD SUGAR RESULT WAS 128 TRENDING DOWN. ALSO REPORTED THAT PT. IS ON INSULIN DRIP 0.5 UNITS/KG/HR AND D5 1/2 NS AT 200 ML/HR. HE STATED ONCE THE BLOOD SUGAR AT 0500 GOES DOWN,THEN CALL HIM BACK. BUT IF BLOOD SUGAR GOES UP THEN IT'S FINE. WILL CONT. TO MONITOR.
[2023-02-04 04:49] LABS: ALBUMIN 3.2 g/dL (3.4-5.0); ANION GAP 12.4 (8-16); CARBON DIOXIDE 25.5 mmol/L (21-32); CREATININE 0.7 mg/dL (0.6-1.3); MAGNESIUM 1.5 mg/dL (1.8-2.4); POTASSIUM 3.9 mmol/L (3.5-5.1); TOTAL BILIRUBIN 0.2 mg/dL (0.0-1.0)
[2023-02-04] MEDS: DEXT 5% / NACL 0.45% 1,000 ML IV SCH ×4 (06:05→16:05)
[2023-02-04] MEDS: INSULIN REGULAR, HUMAN 100 UNIT in NACL 0.9% 100 ML IV SCH ×4 (07:20→09:22)
--- NOTE | 2023-02-04 07:30 | NUR ---
got report from the night nurse, pt says wants a drink and pain medicine.[email or web address]
[2023-02-04] MEDS: BUDESONIDE 0.5 MG/2 ML NEBU INH SCH ×2 (07:41→20:13)
--- NOTE | 2023-02-04 07:41 | NUR ---
RECEIVED ON SUPPLEMENTAL OXYGEN AT 2 LPM VIA NC SATURATION 98%; PATIENT C/O NASAL DRYNESS WOTH OYXGEN USE; POST HHN THERAPY ADDED A HUMIDIFIER
--- NOTE | 2023-02-04 07:44 | NUR ---
ENDORSED PT. TO DAY SHIFT ADELE LIU FOR CONTINUITY OF CARE.
[2023-02-04 08:23] LABS: ANION GAP 14.2 (8-16); CARBON DIOXIDE 23.7 mmol/L (21-32); CREATININE 0.8 mg/dL (0.6-1.3); POTASSIUM 3.9 mmol/L (3.5-5.1)
[2023-02-04 09:18] LABS: MAGNESIUM 1.5 mg/dL (1.8-2.4)
--- NOTE | 2023-02-04 09:22 | NUR ---
PATIENT HAS BEEN SCREENED AND CATEGORIZED HIGH NUTRITION RISK. PATIENT WILL BE SEEN WITHIN 1-2 DAYS OF ADMISSION. 02/04/23-02/06/23 REVIEWED BY ANDREA HARDING RD
--- NOTE | 2023-02-04 10:06 | NUR ---
at 0605 d5 45% iv is not given by oh [email or web address]
[2023-02-04] MEDS: methylPREDNISolone SS 40 MG/ML VIAL IV SCH ×2 (11:37→18:29)
[2023-02-04] MEDS ORDERED: HYDROcodone/APAP 5/325 MG 1 TAB TAB PO PRN (12:00)
[2023-02-04 12:12] LABS: ANION GAP 13.2 (8-16); CARBON DIOXIDE 23.6 mmol/L (21-32); CREATININE 0.6 mg/dL (0.6-1.3); POTASSIUM 4.8 mmol/L (3.5-5.1)
[2023-02-04 12:16] LABS: MAGNESIUM 1.4 mg/dL (1.8-2.4); PHOSPHORUS 3.2 mg/dL (2.5-4.9)
--- NOTE | 2023-02-04 13:14 | NUR ---
DC PLANNING ASSESSMENT COMPLETE PLEASE REFER TO ASSESSMENT FOR ADDITIONAL DETAILS PT REPORTS RESIDING IN A SECOND FLOOR APT WITH HER DAUGHTER AND THREE GRANDCHILDREN, AT THAT ADDRESS LISTED ON FILE. PT IDENTIFIED EMILY SHARMA, DAUGHTER, EMERGENCY CONTACT. PT DENIED HAVING AD IN PLACE AND DECLINED AD OFFERED BY SW. PT REPORTS MEDICATION COMPLIANCE AND DENIES BARRIERS ACCESS TO NEEDED MEDICATIONS. PT REPORTS RECEIVING MEDICATION FROM [facility], WHEN NEEDED. PT REPORTS BEING AMBULATORY WITH DME ASSISTANCE; FWW, O2 AND NEBULIZER AND REQUIRES ASSISTANCE WITH ADL'S THAT HER DAUGHTER/ FAMILY AID WITH. PT REPORTS RECEIVING IHSS HOURS OF 149 HRS PER MONTH. PT REPORTS IHSS CAREGIVER IS HER DAUGHTER, EMILY SHARMA. PT DENIES MH/العراقي, SNF AND HH HX. PT REPORTS HX OF DIABETES THAT IS NOT WELL MANAGED DUE TO HER COPD, PT REPORTS STEROIDS THROW OFF SUGARS AND SHE IS WORKING WITH PHYSICIAN TO CONTROL. PT REPORTS ADEQUATE FOOD IN THE HOME. PT REPORTS DC PLAN IS TO RETURN HOME WITH HER DAUGHTER PROVIDING TRANSPORTATION AND AIDING IN CARE. SALVADOR INQUIRED ON RESOURCES NEEDED, PT DECLINED. Addendum: 02/04/23 at 1316 by Maribel VEGA Amended: Links added.
[2023-02-04] MEDS ORDERED: INSULIN LANTUS 100 UNITS/ML 10 ML VIAL SUBQ SCH ×2 (13:15→21:00)
--- NOTE | 2023-02-04 14:02 | NUR ---
PT SAYS SHE HAD THE PNEUMOCOCCAL AND INFLUENZA VACCINE.[email or web address]
--- NOTE | 2023-02-04 14:04 | NUR ---
02/04/23 RD INITIAL ASSESSMENT COMPLETED PLEASE REFER TO NUTRITION ASSESSMENT UNDER CARE ACTIVITY FOR ESTIMATED NUTRITIONAL NEEDS. 1. MONITOR NPO STATUS 2. RECOMMEND [id number] DIET WHEN/IF MEDICALLY APPROPRIATE 3. RD TO FOLLOW-UP 3-5 DAYS, MODERATE RISK REVIEWED BY ANDREA HARDING RD
[2023-02-04 16:06] LABS: ANION GAP 14.3 (8-16); CARBON DIOXIDE 24.4 mmol/L (21-32); CREATININE 0.7 mg/dL (0.6-1.3); POTASSIUM 4.7 mmol/L (3.5-5.1)
[2023-02-04 16:09] LABS: MAGNESIUM 1.4 mg/dL (1.8-2.4); PHOSPHORUS 3.1 mg/dL (2.5-4.9)
--- NOTE | 2023-02-04 16:27 | NUR ---
GAVE REPORT TO [facility] NURSE TAKING THE PT ON W/C [email or web address]
--- NOTE | 2023-02-04 16:35 | NUR ---
TRANSFERRED PT TO [facility] PT ORIENTED TO THE ROOM NO SOB 023LNC ON.
[2023-02-04] MEDS ORDERED: INSULIN LISPRO SLIDING SCALE 100 UNITS/ML VIAL SUBQ PRN (17:10)
[2023-02-04] MEDS: INSULIN LISPRO SLIDING SCALE 100 UNITS/ML VIAL SUBQ PRN ×2 (18:00→21:01)
[2023-02-04] MEDS: INSULIN LISPRO 100 UNITS/ML VIAL SUBQ SCH (18:00)
[2023-02-04] MEDS: metFORMIN 500 MG TAB PO SCH (18:01)
--- NOTE | 2023-02-04 19:26 | NUR ---
ENDORSED PT TO RISK CONSULTANT NURSE FOR CONTINUITY OF CARE. PT IS STABLE.
--- NOTE | 2023-02-04 19:27 | NUR ---
RECEIVED REPORT FROM DAY SHIFT NURSE NAVEED FOR CONTINUITY OF CARE. PT SITTING IN BED. AMBULATORY. ABLE TO MAKE NEEDS KNOWN. RESPIRATIONS EVEN AND UNLABORED ON 3L NC. ON WASHING MACHINE REPAIRER. SKIN INTACT, WARM AND DRY TO TOUCH. POC DISCUSSED. REPORT GIVEN TO ADELE IGNACIO. CALL LIGHT WITHIN REACH. SAFETY PRECAUTIONS IN PLACE.
[2023-02-04 20:14] LABS: ANION GAP 14.8 (8-16); CARBON DIOXIDE 23.4 mmol/L (21-32); POTASSIUM 4.2 mmol/L (3.5-5.1)
[2023-02-04 20:24] LABS: MAGNESIUM 1.4 mg/dL (1.8-2.4); PHOSPHORUS 2.8 mg/dL (2.5-4.9)
[2023-02-04] MEDS: MORPHINE SULFATE 4 MG/ML SYR IVP PRN (20:42)
[2023-02-04] MEDS: MAG SULF 2000 MG/WATER PREMIX 50 ML IV PRN (20:47)
--- NOTE | 2023-02-04 20:56 | NUR ---
ADMINISTERED DUE MEDS. PT TOLERATED WELL.
[2023-02-04] MEDS: APIXABAN 2.5 MG TAB PO SCH (20:59)
--- NOTE | 2023-02-04 21:00 | NUR ---
2041 MEDICATED WITH MORPHINE 4MG IVP FOR BACK AND CHEST PAIN 06/30. MAG. IVPB 2GRAM @ 25ML/H OVER 2 HOURS. MG LEVEL 1.4.
--- NOTE | 2023-02-04 21:12 | NUR ---
PAIN REASSESSMENT MORPHINE 4 MG EFFECTIVE PAIN PRESENTLY 02/27
[2023-02-05] VITALS: BP 131/70
[2023-02-05] MEDS: MORPHINE SULFATE 4 MG/ML SYR IVP PRN ×6 (00:37→21:01)
--- NOTE | 2023-02-05 00:41 | NUR ---
0035 MEDICATED FOR CHEST AND BACK PAIN 05/29
[2023-02-05] MEDS: ALBUTEROL SULFATE/IPRATROPIU 3 ML SOL IH SCH ×4 (01:18→19:46)
[2023-02-05 04:00] VITALS: BP 142/69
[2023-02-05 05:48] LABS: BASOPHILS # (AUTO) 0.1 K/uL (0.00-0.22); BASOPHILS % (AUTO) 0.4 % (0.0-2.0); EOSINOPHILS % (AUTO) 0.1 % (0.0-4.0); HEMATOCRIT 31.8 % (36-48); HEMOGLOBIN 9.9 g/dL (12.0-16.0); LYMPHOCYTES # (AUTO) 1.7 K/uL (2.5-16.5); LYMPHOCYTES % (AUTO) 12.6 % (20.5-51.1); MEAN CORPUSCULAR HEMOGLOBIN 26 pg (27-31); MEAN CORPUSCULAR HGB CONC 31 g/dL (33-37); MEAN CORPUSCULAR VOLUME 81.7 fL (80-94); MONOCYTES # (AUTO) 0.6 K/uL (0.8-1.0); MONOCYTES % (AUTO) 4.8 % (1.7-9.3); NEUTROPHILS # (AUTO) 10.9 K/uL (1.8-7.7); NEUTROPHILS % (AUTO) 82.1 % (42.2-75.2); PLATELET COUNT (AUTO) 399 K/uL (140-450); RED BLOOD CELL COUNT(AUTO) 3.89 MIL/uL (4.20-5.40); RED CELL DISTRIBUTION WIDTH 17.3 % (11.6-13.7); WHITE BLOOD COUNT (AUTO) 13.3 K/uL (4.8-10.8)
[2023-02-05 05:52] LABS: ALBUMIN 3.2 g/dL (3.4-5.0); CARBON DIOXIDE 26.8 mmol/L (21-32); CREATININE 0.7 mg/dL (0.6-1.3); MAGNESIUM 1.8 mg/dL (1.8-2.4); POTASSIUM 3.8 mmol/L (3.5-5.1); TOTAL BILIRUBIN 0.2 mg/dL (0.0-1.0)
[2023-02-05] MEDS: BLOOD GLUCOSE MONITORING 1 DEV DEV FS SCH ×4 (06:32→21:34)
[2023-02-05] MEDS: INSULIN LISPRO 100 UNITS/ML VIAL SUBQ SCH ×3 (06:33→16:40)
--- NOTE | 2023-02-05 06:33 | NUR ---
BLOOD SUGAR CHECK DONE. BS 124. NON-ADMIT INSULIN. PT SITTING AT BEDSIDE. NO DISTRESS NOTED. BREATHING EVEN AND UNLABORED. SAFETY PRECAUTIONS REMAINED IN PLACE.
--- NOTE | 2023-02-05 07:12 | NUR ---
ASSUMED CONTINUITY OF CARE. INITIAL ASSESSMENT DONE. KEEP COMFORTABLE ON BED. CALL LIGHT WITHIN REACH.
--- NOTE | 2023-02-05 07:12 | NUR ---
GAVE REPORT TO GURDEEP JORDAN FOR CONTINUITY OF CARE. PT IS STABLE.
[2023-02-05 08:00] VITALS: BP 138/84
--- NOTE | 2023-02-05 08:00 | NUR ---
Patient's Plan of Care was discussed and reviewed with VIRTUALIZATION CONSULTANT: JULIAN GASTON
[2023-02-05] MEDS ORDERED: methylPREDNISolone SS 40 MG/ML VIAL IV SCH (09:00)
[2023-02-05] MEDS: SERTRALINE 50 MG TAB PO SCH (09:09)
[2023-02-05] MEDS: metFORMIN 500 MG TAB PO SCH ×2 (09:09→17:16)
[2023-02-05] MEDS: APIXABAN 2.5 MG TAB PO SCH ×2 (09:09→21:34)
[2023-02-05] MEDS ORDERED: methylPREDNISolone SS 40 MG/ML VIAL IVP SCH (09:16)
[2023-02-05] MEDS: ACETYLCYSTEINE 10% (100 MG/ML) 100 MG/ML VIAL INH SCH ×3 (09:25→19:46)
[2023-02-05] MEDS: INSULIN LISPRO SLIDING SCALE 100 UNITS/ML VIAL SUBQ PRN ×3 (11:36→21:35)
[2023-02-05 12:00] VITALS: BP 137/65
[2023-02-05] MEDS: BUDESONIDE 0.5 MG/2 ML NEBU INH SCH ×2 (12:18→19:59)
--- NOTE | 2023-02-05 12:42 | NUR ---
DR. GONZALEZ CAME REVIEWED PT. CHART, D/C IVF.
[2023-02-05 16:00] VITALS: BP 129/70
[2023-02-05] MEDS ORDERED: MONTELUKAST SODIUM 10 MG TAB PO SCH (17:00)
[2023-02-05] MEDS ORDERED: PRED20TA5 PO (17:03)
--- NOTE | 2023-02-05 19:19 | NUR ---
BEDSIDE REPORT GIVEN TO CAMILLA EDOUARD. IN STABLE CONDITION.
--- NOTE | 2023-02-05 19:20 | NUR ---
RECEIVED ENDORSEMENT FROM JULIAN MACKENZIE, PATIENT WAS STABLE DURING SHIFT REPORT. PATIENT IN BED GETTING BREATHING TREATMENT FROM [facility]. COMPLAINED OF PAIN BUT CAN RECEIVE MEDICATION IN ONE HOUR. NO NOTED S/S OF RESPIRATORY DISTRESS OXYGEN NOTED AT 3 LITERS AND VIA NASAL CANNULA. ALL OTHER NEEDS MET CALL LIGHT WITHIN REACH AND SIDE RAILS UP X 2. [email or web address]
--- NOTE | 2023-02-05 19:21 | NUR ---
Patient's Plan of Care was discussed and reviewed with GURDEEP: CAMILLA
[2023-02-05] MEDS ORDERED: INSULIN LANTUS 100 UNITS/ML 10 ML VIAL SUBQ SCH (21:00)
[2023-02-05] MEDS: predniSONE 20 MG TAB PO SCH (21:45)
[2023-02-05] MEDS ORDERED: ACETYLCYSTEINE 10% (100 MG/ML) 100 MG/ML VIAL INH SCH (23:00)
[2023-02-06] VITALS: BP 138/74
[2023-02-06] MEDS: MORPHINE SULFATE 4 MG/ML SYR IVP PRN ×3 (01:14→10:50)
[2023-02-06] MEDS: ALBUTEROL SULFATE/IPRATROPIU 3 ML SOL IH SCH ×3 (01:22→12:44)
[2023-02-06] MEDS: ACETYLCYSTEINE 10% (100 MG/ML) 100 MG/ML VIAL INH SCH ×3 (01:23→12:44)
--- NOTE | 2023-02-06 01:50 | NUR ---
PATIENT NOTED IN BED RESTING WITHOUT INCIDENT. NO NOTED PAIN/DISCOMFORT. NO NOTED S/S OF RESPIRATORY DISTRESS. [email or web address]
--- NOTE | 2023-02-06 02:20 | NUR ---
PATIENT IN BED. NO NOTED S/S OF PAIN/DISCOMFORT AFTER PAIN MEDICATION WAS GIVEN. NO NOTED SIDE EFFECTS. NO NOTED S/S OF RESPIRATORY DISTRESS OXYGEN NOTED AT 3 LITERS AND VIA NASAL CANNULA. ALL OTHER NEEDS MET CALL LIGHT WITHIN REACH AND SIDE RAILS UP X 2. [email or web address]
--- NOTE | 2023-02-06 03:27 | NUR ---
PATIENT NOTED IN BED RESTING WITHOUT INCIDENT. NO NOTED PAIN/DISCOMFORT. NO NOTED S/S OF RESPIRATORY DISTRESS. [email or web address]
[2023-02-06 05:24] LABS: BASOPHILS % (AUTO) 0.1 % (0.0-2.0); HEMATOCRIT 34.1 % (36-48); HEMOGLOBIN 10.8 g/dL (12.0-16.0); LYMPHOCYTES # (AUTO) 0.7 K/uL (2.5-16.5); LYMPHOCYTES % (AUTO) 8.2 % (20.5-51.1); MEAN CORPUSCULAR HEMOGLOBIN 26 pg (27-31); MEAN CORPUSCULAR HGB CONC 32 g/dL (33-37); MEAN CORPUSCULAR VOLUME 82.1 fL (80-94); MONOCYTES # (AUTO) 0.2 K/uL (0.8-1.0); MONOCYTES % (AUTO) 2.7 % (1.7-9.3); NEUTROPHILS # (AUTO) 7.6 K/uL (1.8-7.7); PLATELET COUNT (AUTO) 333 K/uL (140-450); RED BLOOD CELL COUNT(AUTO) 4.15 MIL/uL (4.20-5.40); RED CELL DISTRIBUTION WIDTH 17.9 % (11.6-13.7); WHITE BLOOD COUNT (AUTO) 8.5 K/uL (4.8-10.8)
[2023-02-06] MEDS: BLOOD GLUCOSE MONITORING 1 DEV DEV FS SCH ×2 (06:00→11:57)
[2023-02-06] MEDS: INSULIN LISPRO SLIDING SCALE 100 UNITS/ML VIAL SUBQ PRN (06:34)
[2023-02-06 06:41] LABS: ALBUMIN 3.1 g/dL (3.4-5.0); ANION GAP 13.5 (8-16); CARBON DIOXIDE 25.4 mmol/L (21-32); CREATININE 0.7 mg/dL (0.6-1.3); MAGNESIUM 1.5 mg/dL (1.8-2.4); POTASSIUM 4.9 mmol/L (3.5-5.1); TOTAL BILIRUBIN 0.2 mg/dL (0.0-1.0)
[2023-02-06] MEDS: INSULIN LISPRO 100 UNITS/ML VIAL SUBQ SCH ×2 (07:30→11:58)
--- NOTE | 2023-02-06 07:30 | NUR ---
ENDORSED CARE TO MARCELLA MACKENZIE FOR CONTINUITY OF CARE, PATIENT WAS STALE DURING SHIFT CHANGE. [email or web address]
--- NOTE | 2023-02-06 07:30 | NUR ---
RECEIVED REPORT FROM NIPPING MACHINE OPERATOR NURSE, LUCIA, FOR CONTINUITY OF CARE. PT IN BED AT THIS TIME, SITTING UP AND WATCHING TELEVISION. RESPIRATIONS ARE EVEN AND UNLABORED, PT IS ON 2L VIA NC. NO SIGNS OF DISTRESS NOTED. PT IS ALERT AND ORIENTED X4, ABLE TO VERBALIZE NEEDS, ABLE TO FOLLOW COMMANDS. ABD IS NONTENDER, NONDISTENDED WITH BOWEL SOUNDS PRESENT. PT IS ON CCHO DIET, TOLERATING WELL. PT HAS FULL ROM TO UPPER AND LOWER EXTREMITIES. PT IS CONTINENT OF BOWEL AND BLADDER, ABLE TO AMBULATE TO REST ROOM. CALL LIGHT WITHIN REACH. ALL SAFETY MEASURES IN PLACE.
[2023-02-06 08:00] VITALS: BP 155/76
--- NOTE | 2023-02-06 08:05 | NUR ---
STABLE VERBALLY RESPONSIVE GOOD CHEST RISE; ROOM AIR SATURATION 94%; INTERMITTENT STRONG NPC DURING HHN THERAPY; PATIENT REQUESTING PULMICORT THERAPY AT A LATER TIME; PATIENT WITH BREAKFAST TRAY
[2023-02-06] MEDS: MAG SULF 2000 MG/WATER PREMIX 50 ML IV PRN (08:46)
[2023-02-06] MEDS: APIXABAN 2.5 MG TAB PO SCH (08:47)
[2023-02-06] MEDS: predniSONE 20 MG TAB PO SCH (08:48)
[2023-02-06] MEDS: metFORMIN 500 MG TAB PO SCH (08:48)
[2023-02-06] MEDS: SERTRALINE 50 MG TAB PO SCH (08:48)
--- NOTE | 2023-02-06 08:50 | NUR ---
ADMINISTERED ALL SCHEDULED MEDICATIONS. EDUCATED PT ON MEDS ADMINISTERED. PT VERBALIZED UNDERSTANDING.
[2023-02-06] MEDS ORDERED: AZITHROMYCIN 250 MG TAB PO SCH (09:00)
[2023-02-06] MEDS: BUDESONIDE 0.5 MG/2 ML NEBU INH SCH (09:36)
--- NOTE | 2023-02-06 11:52 | NUR ---
BLOOD GLUCOSE WAS 150. NO INSULIN COVERAGE NEEDED PER SLIDING SCALE.
[2023-02-06 13:22] VITALS: BP 135/72
--- NOTE | 2023-02-06 14:20 | NUR ---
PT HAS DISCHARGE ORDER IN PLACE. WENT OVER DISCHARGE PAPERWORK WITH PT. PT SIGNED ALL PAPERWORK. REMOVED IV. IV CATHETER INTACT. ALL BELONGINGS TAKEN UPON DISCHARGE. PT PICKED UP BY DAUGHTER, DISCHARGED HOME.
--- NOTE | 2023-02-12 10:40 | NUR ---
CALLED DR RAMSEY SERNA OFFICE AT LOCATED AT [address] [place] [address]. SPOKE WITH JOSE ANGEL WHO WAS ABLE TO HELP ME BOOK THER CLOSEST FOLLOW UP APPOINTMENT FOR 02/22/2023 AT 0900. CALLED PT AND WAS ABLE TO LEAVE MESSAGE DUE TO HER NOT ANSWERING.
== END 2023-02-06 14:20 | disposition home or self-care (01) | DRG 640 ==
LOC: MED 17:26 → MTU 20:51 → MIC 22:26 → MMU 02-04 16:40
PROVIDERS: ADMIT Internal Medicine; ATTEND Internal Medicine
DX: E87.5 Hyperkalemia (principal); E11.10 Type 2 diabetes mellitus with ketoacidosis without coma; I50.32 Chronic diastolic (congestive) heart failure; J44.1 Chronic obstructive pulmonary disease with (acute) exacerbation; J96.11 Chronic respiratory failure with hypoxia; Z20.822 Contact with and (suspected) exposure to COVID-19; K21.9 Gastro-esophageal reflux disease without esophagitis; F17.210 Nicotine dependence, cigarettes, uncomplicated; I48.91 Unspecified atrial fibrillation; E11.65 Type 2 diabetes mellitus with hyperglycemia; Z88.0 Allergy status to penicillin; Z88.1 Allergy status to other antibiotic agents; Z85.118 Personal history of other malignant neoplasm of bronchus and lung; Z79.01 Long term (current) use of anticoagulants; Z90.49 Acquired absence of other specified parts of digestive tract; Z79.4 Long term (current) use of insulin; Z86.711 Personal history of pulmonary embolism; Z86.718 Personal history of other venous thrombosis and embolism
CPT/HCPCS: 36415; 36600; 71045; 80048; 80053; 82803; 82948; 83690; 83735; 84100; 84484; 85025; 87081; 93005; 94640; 96361; 96374; 96375; 99291; J1644; J1815; J2270; J2405; J2920; J2930; J3475; J7512; J7613; J7626; J7644; Q0092

== ENCOUNTER 2023-02-20 14:54 | Inpatient (IN) | payer OTHER ==
[~2023-02-20] VITALS: Ht 157.5 cm; Wt 57.2 kg
[~2023-02-20 14:54] MED LIST changes: -LEVO750T75 PO
[2023-02-20 15:03] VITALS: BP 130/96
--- NOTE | 2023-02-20 15:15 | NUR ---
Patient ambulated to bed 7.
[2023-02-20] MEDS ORDERED: NACL 0.9% 1,000 ML IV ONE (15:20)
--- NOTE | 2023-02-20 15:37 | NUR ---
elvia frazier bedside assessing pt
[2023-02-20] MEDS ORDERED: MORPHINE SULFATE 4 MG/ML SYR IVP ONE (15:40)
--- NOTE | 2023-02-20 15:45 | NUR ---
IV started, blood work obtained, handed to CPT at bedside.
--- NOTE | 2023-02-20 15:53 | NUR ---
Patient is ambulating to the restroom with steady gait.
[2023-02-20 16:03] LABS: BASOPHILS # (AUTO) 0.1 K/uL (0.00-0.22); BASOPHILS % (AUTO) 0.7 % (0.0-2.0); EOSINOPHILS % (AUTO) 0.2 % (0.0-4.0); HEMATOCRIT 33.5 % (36-48); HEMOGLOBIN 10.7 g/dL (12.0-16.0); LYMPHOCYTES # (AUTO) 1.3 K/uL (2.5-16.5); LYMPHOCYTES % (AUTO) 16.2 % (20.5-51.1); MEAN CORPUSCULAR HEMOGLOBIN 26 pg (27-31); MEAN CORPUSCULAR HGB CONC 32 g/dL (33-37); MEAN CORPUSCULAR VOLUME 82.2 fL (80-94); MONOCYTES # (AUTO) 0.4 K/uL (0.8-1.0); MONOCYTES % (AUTO) 5.2 % (1.7-9.3); NEUTROPHILS # (AUTO) 6.2 K/uL (1.8-7.7); NEUTROPHILS % (AUTO) 77.7 % (42.2-75.2); PLATELET COUNT (AUTO) 377 K/uL (140-450); RED BLOOD CELL COUNT(AUTO) 4.08 MIL/uL (4.20-5.40); RED CELL DISTRIBUTION WIDTH 18.1 % (11.6-13.7)
--- NOTE | 2023-02-20 16:04 | NUR ---
Urine sample obtained, walked to lab.
[2023-02-20 16:13] LABS: APPEARANCE,URINE CLEAR (CLEAR); BILIRUBIN,URINE NEGATIVE (NEGATIVE); BLOOD, URINE NEGATIVE (NEGATIVE); COLOR,URINE YELLOW (YELLOW); LEUKOCYTE ESTERASE ,URINE NEGATIVE (NEGATIVE); NITRITE, URINE NEGATIVE (NEGATIVE); UGLUCOSE 3+ (NEGATIVE)
[2023-02-20 16:23] LABS: ALBUMIN 3.6 g/dL (3.4-5.0); ANION GAP 15.8 (8-16); ASPARTATE AMINOTRANSFERASE 12 U/L (15-37); CARBON DIOXIDE 26.7 mmol/L (21-32); CHLORIDE 97 mmol/L (98-107); GFR ARICAN-AMERICAN 71 mL/min (>90); POTASSIUM 4.5 mmol/L (3.5-5.1); SODIUM SERUM 135 mmol/L (136-145); TOTAL BILIRUBIN 0.3 mg/dL (0.0-1.0); UREA NITROGEN, BLOOD 17 mg/dL (7-18)
[2023-02-20 16:24] LABS: GLUCOSE 655 mg/dL (74-106)
[2023-02-20] MEDS ORDERED: INSULIN REGULAR, HUMAN 100 UNIT in NACL 0.9% 100 ML IV ONE ×2 (16:30)
[2023-02-20] MEDS ORDERED: INSULIN REGULAR, HUMAN 100 UNIT/ML VIAL IVP ONE (16:30)
[2023-02-20] MEDS ORDERED: INSU100S22 SUBQ (16:42)
[2023-02-20] MEDS ORDERED: ATRMDI IH (16:42)
[2023-02-20] MEDS ORDERED: GABA300C PO (16:42)
[2023-02-20] MEDS ORDERED: FLUT1BLS15 IH (16:42)
[2023-02-20] MEDS ORDERED: ZOLP5TAB1 PO (16:42)
[2023-02-20] MEDS ORDERED: INSU-1163 SQ (16:42)
[2023-02-20] MEDS ORDERED: ASPI-1822 PO (16:42)
[2023-02-20] MEDS ORDERED: LORA-476 PO (16:42)
[2023-02-20] MEDS ORDERED: PRON INH (16:42)
[2023-02-20] MEDS ORDERED: PRED20TA5 PO (16:42)
[2023-02-20] MEDS ORDERED: APIX5TAB PO (16:42)
--- NOTE | 2023-02-20 16:45 | NUR ---
med rec complete
[2023-02-20] MEDS ORDERED: HYDROcodone/APAP 5/325 MG 1 TAB TAB PO PRN (17:15)
[2023-02-20] MEDS ORDERED: ONDANSETRON 4 MG/2 ML VIAL IVP PRN (17:15)
[2023-02-20] MEDS ORDERED: POTASSIUM CHLORIDE 10 MEQ TABER PO PRN (17:15)
--- NOTE | 2023-02-20 17:20 | NUR ---
pt accu check 520 per elvia frazier to continue with administration of the ordered 5 units of insulin ivp and start indsulin drip.
[2023-02-20] MEDS ORDERED: DEXTROSE 50% 50 ML SYR IVP PRN (17:55)
[2023-02-20] MEDS ORDERED: BENZONATATE 100 MG CAPLF PO PRN (18:00)
[2023-02-20] MEDS ORDERED: LEVOFLOXACIN 500 MG/D5W PREMIX 100 ML IV SCH (18:00)
[2023-02-20] MEDS ORDERED: PROMETHAZINE DM 6.25/15MG-5ML ORASYR PO PRN (18:00)
--- NOTE | 2023-02-20 18:08 | NUR ---
Patient will be admitted to care of Dr. Briceno. Admited to ICU. Will go to room 5. Belongings list completed. Report to ADELE Pinedo.
--- NOTE | 2023-02-20 18:15 | NUR ---
RECEIVED PT. FROM ER IN [facility]. SHE IS AWAKE ALERT ORIENTED X4 ABLE TO OOB FROM [facility].SKIN INTACT IV LINE #20 ON LEFT AC AND LEFT WRIST INFUSING INSULIN AT 0.1 UNIT/KG/H.PT. PLACE TO ICU BED 5 CONNECT TO MONITOR RESTING IN BED CALL LIGHT IN REACH.
--- NOTE | 2023-02-20 18:28 | NUR ---
The patient's care was reviewed and supervised by ED Agency Nurse 7, RN, RN.
[2023-02-20] MEDS ORDERED: ALBUTEROL SULFATE/IPRATROPIU 3 ML SOL IH SCH (19:00)
--- NOTE | 2023-02-20 19:30 | NUR ---
PT. IS COMFORTABLE IN BED, REPORT GIVE TO JANNA ANGULO.
[2023-02-20 19:38] VITALS: BP 141/82
[2023-02-20] MEDS: BUDESONIDE 0.5 MG/2 ML NEBU INH SCH (19:55)
[2023-02-20 20:00] VITALS: BP 96/57
[2023-02-20] MEDS: MORPHINE SULFATE 4 MG/ML SYR IVP PRN ×2 (20:05→23:49)
[2023-02-20 20:17] LABS: CARBON DIOXIDE 28.1 mmol/L (21-32); CREATININE 0.8 mg/dL (0.6-1.3); POTASSIUM 4.1 mmol/L (3.5-5.1)
[2023-02-20] MEDS ORDERED: ALBUTEROL SULFATE/IPRATROPIU 3 ML SOL IH PRN (20:30)
[2023-02-20 20:32] LABS: MAGNESIUM 1.4 mg/dL (1.8-2.4); PHOSPHORUS 2.9 mg/dL (2.5-4.9)
[2023-02-20] MEDS: BLOOD GLUCOSE MONITORING 1 DEV DEV FS SCH ×2 (20:43→21:13)
[2023-02-20 21:00] VITALS: BP 125/69
[2023-02-20] MEDS ORDERED: FAMOTIDINE 20 MG/2 ML VIAL IV SCH (21:00)
[2023-02-20] MEDS: NACL 0.9% 1,000 ML IV SCH (21:00)
[2023-02-20] MEDS: guaiFENesin 600 MG TABER PO SCH (21:32)
[2023-02-20 22:00] VITALS: BP 139/74
[2023-02-20] MEDS ORDERED: DEXT 5% / NACL 0.45% 1,000 ML IV SCH (22:00)
[2023-02-20] MEDS ORDERED: INSULIN REGULAR, HUMAN 100 UNIT in NACL 0.9% 100 ML IV SCH ×2 (22:00)
[2023-02-20] MEDS: ALBUTEROL SULFATE/IPRATROPIU 3 ML SOL IH SCH (22:55)
[2023-02-20 23:00] VITALS: BP 128/74
[2023-02-21] VITALS (8 sets, daily range): BP systolic 116–149; BP diastolic 64–89
[2023-02-21] MEDS: BLOOD GLUCOSE MONITORING 1 DEV DEV FS SCH ×2 (00:31→09:01)
[2023-02-21 00:41] LABS: CARBON DIOXIDE 25.7 mmol/L (21-32); CREATININE 0.6 mg/dL (0.6-1.3); POTASSIUM 3.7 mmol/L (3.5-5.1)
[2023-02-21 00:46] LABS: MAGNESIUM 1.4 mg/dL (1.8-2.4); PHOSPHORUS 3.7 mg/dL (2.5-4.9)
[2023-02-21] MEDS: ALBUTEROL SULFATE/IPRATROPIU 3 ML SOL IH SCH ×3 (02:37→11:02)
[2023-02-21] MEDS: MORPHINE SULFATE 4 MG/ML SYR IVP PRN (04:22)
[2023-02-21 04:26] LABS: BASOPHILS # (AUTO) 0.1 K/uL (0.00-0.22); EOSINOPHILS % (AUTO) 0.7 % (0.0-4.0); HEMATOCRIT 28.7 % (36-48); HEMOGLOBIN 9.1 g/dL (12.0-16.0); LYMPHOCYTES # (AUTO) 1.9 K/uL (2.5-16.5); LYMPHOCYTES % (AUTO) 29.1 % (20.5-51.1); MEAN CORPUSCULAR HEMOGLOBIN 26 pg (27-31); MEAN CORPUSCULAR HGB CONC 32 g/dL (33-37); MEAN CORPUSCULAR VOLUME 81.2 fL (80-94); MONOCYTES # (AUTO) 0.4 K/uL (0.8-1.0); MONOCYTES % (AUTO) 5.9 % (1.7-9.3); NEUTROPHILS # (AUTO) 4.1 K/uL (1.8-7.7); NEUTROPHILS % (AUTO) 63.3 % (42.2-75.2); PLATELET COUNT (AUTO) 315 K/uL (140-450); RED BLOOD CELL COUNT(AUTO) 3.54 MIL/uL (4.20-5.40); RED CELL DISTRIBUTION WIDTH 17.4 % (11.6-13.7); WHITE BLOOD COUNT (AUTO) 6.4 K/uL (4.8-10.8)
[2023-02-21 04:45] LABS: MAGNESIUM 1.3 mg/dL (1.8-2.4); PHOSPHORUS 3.4 mg/dL (2.5-4.9)
[2023-02-21 05:02] LABS: ALBUMIN 2.7 g/dL (3.4-5.0); ANION GAP 14.7 (8-16); CARBON DIOXIDE 26.5 mmol/L (21-32); CREATININE 0.5 mg/dL (0.6-1.3); POTASSIUM 4.2 mmol/L (3.5-5.1); TOTAL BILIRUBIN 0.3 mg/dL (0.0-1.0)
[2023-02-21 05:09] LABS: FREE T4 (FREE THYROXINE) 0.57 ng/dL (0.76-1.46)
[2023-02-21 05:10] LABS: THYROID STIMULATING HORMONE 2.47 uIU/mL (0.34-3.74)
[2023-02-21] MEDS: BUDESONIDE 0.5 MG/2 ML NEBU INH SCH (07:07)
[2023-02-21] MEDS: NACL 0.9% 1,000 ML IV SCH (07:12)
--- NOTE | 2023-02-21 07:15 | NUR ---
RECEIVED REPORT FROM JANNA ANGULO. PT.IS AWAKE ALERT WELL ORIENTED BREATHING ON 3L/NC O2 SAT 95% INSULIN D/C SINCE LAST NIGHT IV GATE # 20 ON LEFT ARM IS DRY AND INTACT. SHE IS DENIED PAIN AT THIS TIME
--- NOTE | 2023-02-21 08:50 | NUR ---
C/O PAIN 9/10 CHEST AND BACK AREA. MEDICATION GAVE IT ORDERED.
[2023-02-21] MEDS ORDERED: INSULIN LANTUS 100 UNITS/ML 10 ML VIAL SUBQ SCH ×2 (09:00→21:00)
[2023-02-21] MEDS ORDERED: predniSONE 20 MG TAB PO SCH (09:00)
[2023-02-21] MEDS: guaiFENesin 600 MG TABER PO SCH (09:02)
--- NOTE | 2023-02-21 09:36 | NUR ---
PATIENT HAS BEEN SCREENED AND CATEGORIZED HIGH NUTRITION RISK. PATIENT WILL BE SEEN WITHIN 1-2 DAYS OF ADMISSION. 02/21/23-02/22/[address]
--- NOTE | 2023-02-21 09:49 | NUR ---
PT RESTING COMFORTABLY IN BED ON 2L NASAL CANNULA. DR. CHAVARRIA ORDERED AN ABG ON PT. PT REFUSED TO HAVE IT DONE. THERE ARE NO SIGNS OF RESPIRATORY DISTRESS, PATIENT IS AWAKE AND ALERT, AND ORIENTED X4. ABG WAS NOT DONE AND DOCTOR WAS NOTIFIED. REQUESTED TO ADD BID MUCOMYST TO PATIENT NEBULIZER TXN. WAITING FOR REPLY FROM
[2023-02-21] MEDS ORDERED: DEXTROSE 50% 50 ML SYR IVP PRN (09:50)
[2023-02-21] MEDS ORDERED: INSULIN LISPRO SLIDING SCALE 100 UNITS/ML VIAL SUBQ PRN (09:50)
[2023-02-21 10:19] LABS: ANION GAP 11.4 (8-16); CARBON DIOXIDE 26.9 mmol/L (21-32); CREATININE 0.8 mg/dL (0.6-1.3); POTASSIUM 4.3 mmol/L (3.5-5.1)
[2023-02-21 10:25] LABS: MAGNESIUM 1.3 mg/dL (1.8-2.4); PHOSPHORUS 2.2 mg/dL (2.5-4.9)
--- NOTE | 2023-02-21 11:27 | NUR ---
SEEN BY DR. CHAVARRIA AT BEDSIDE EXAN PT. AND D/C PT. HOME SELF CARE AND TO GO TO OWN PHYSICIAN.
[2023-02-21] MEDS ORDERED: INSU100S22 SUBQ (11:29)
[2023-02-21] MEDS ORDERED: INSULIN LISPRO 100 UNITS/ML VIAL SUBQ SCH (11:30)
[2023-02-21] MEDS ORDERED: BLOOD GLUCOSE MONITORING 1 DEV DEV FS SCH (11:30)
--- NOTE | 2023-02-21 12:04 | NUR ---
DC PLANNING ASSESSMENT COMPLETE PLEASE REFER TO ASSESSMENT FOR ADDITIONAL DETAILS MET W/ PT AT BEDSIDE TO COMPLETE ASSESSMENT. PT DENIES ANY CHANGES SINCE LAST ADMISSION. PT REPORTS RESIDING IN A SECOND FLOOR APT WITH HER DAUGHTER AND THREE GRANDCHILDREN, AT THAT ADDRESS LISTED ON FILE. PT IDENTIFIED EMILY SHARMA, DAUGHTER, EMERGENCY CONTACT. PT DENIED HAVING AD IN PLACE AND DECLINED AD OFFERED BY SW. PT REPORTS MEDICATION COMPLIANCE AND DENIES BARRIERS ACCESS TO NEEDED MEDICATIONS. PT REPORTS RECEIVING MEDICATION FROM [facility], WHEN NEEDED. PT REPORTS BEING AMBULATORY WITH DME ASSISTANCE; FWW, O2 AND NEBULIZER AND REQUIRES ASSISTANCE WITH ADL'S THAT HER DAUGHTER/ FAMILY AID WITH. PT REPORTS RECEIVING IHSS HOURS OF 149 HRS PER MONTH. PT REPORTS IHSS CAREGIVER IS HER DAUGHTER, EMILY SHARMA. PT DENIES MH/العراقي, SNF AND HH HX. PT REPORTS HX OF DIABETES THAT IS NOT WELL MANAGED DUE TO HER COPD, PT REPORTS STEROIDS THROW OFF SUGARS AND SHE IS WORKING WITH PHYSICIAN TO CONTROL. PT REPORTS ADEQUATE FOOD IN THE HOME. PT REPORTS DC PLAN IS TO RETURN HOME WITH HER DAUGHTER PROVIDING TRANSPORTATION AND AIDING IN CARE. SW INQUIRED ON RESOURCES NEEDED, PT DECLINED. Addendum: 02/21/23 at 1205 by Maribel Lentz Amended: Links added.
--- NOTE | 2023-02-21 12:25 | NUR ---
DC PLANNING A 68Y.O. FEMALE PATIENT ADMITTED FOR INCREASING SOB AND CHEST PAIN .HX OF SMOKER AND USES O2 AT HOME AT 2LPER NC.HX OF ADVANCED COPD, HTN, HYPERLIPIDEMIA AND DM.STARTED ON INSULIN DRIP FOR GLUCOSE OF 586.OFF INSULIN DRIP. ON SLIDING SCLAE PLUS HER DOSE OF LANTUS BID.CXR SUGGESTIVE OF COPD.PULMO ON BOARD.DC PLAN- HOME WHEN PATIENT RESPONDS TO [place].CM TO FOLLOW. .O
--- NOTE | 2023-02-21 13:30 | NUR ---
PT AWAKE ALERT D/C HOME WHEEL PATIENT OUT TO PRIVATE CAR THAT DRIVE BY HER DAUGHTER TO GO HOME.
--- NOTE | 2023-02-22 13:35 | NUR ---
CALLED DR RAMSEY SERNA OFFICE LOCATED AT [address] [place] [address]. SPOKE WITH CORDELIA WHO INFORMED ME PATIENT HAD CALLED AND MADE AN APPOINTMENT FOR 02/26/2023 AT 8933.
== END 2023-02-21 15:06 | disposition home or self-care (01) | DRG 637 ==
LOC: MED 14:54 → MTU 17:19 → MIC 17:33
PROVIDERS: ADMIT Student in an Organized Health Care Education/Training Program; ATTEND Student in an Organized Health Care Education/Training Program
DX: E11.10 Type 2 diabetes mellitus with ketoacidosis without coma (principal); J96.21 Acute and chronic respiratory failure with hypoxia; J44.1 Chronic obstructive pulmonary disease with (acute) exacerbation; D84.9 Immunodeficiency, unspecified; I10 Essential (primary) hypertension; E78.5 Hyperlipidemia, unspecified; E11.65 Type 2 diabetes mellitus with hyperglycemia; J20.9 Acute bronchitis, unspecified; E11.42 Type 2 diabetes mellitus with diabetic polyneuropathy; Z20.822 Contact with and (suspected) exposure to COVID-19; Z88.1 Allergy status to other antibiotic agents; Z88.0 Allergy status to penicillin; Z88.8 Allergy status to other drugs, medicaments and biological substances; Z79.899 Other long term (current) drug therapy; Z90.49 Acquired absence of other specified parts of digestive tract; Z83.3 Family history of diabetes mellitus; Z83.49 Family history of other endocrine, nutritional and metabolic diseases; Z88.2 Allergy status to sulfonamides
CPT/HCPCS: 36415; 71045; 80048; 80053; 81003; 82803; 82948; 83036; 83735; 84100; 84439; 84443; 84484; 85025; 93005; 94640; 96365; 96375; 99291; J1644; J1815; J1956; J2270; J3490; J7512; J7626

== ENCOUNTER 2023-03-22 14:16 | Emergency (ER) | payer OTHER ==
[~2023-03-22] VITALS: Ht 157.5 cm; Wt 58.1 kg
[~2023-03-22 14:16] MED LIST changes: -ALBU3SOL83 NEB; +ASPI-1822 PO; +ATRMDI IH; -ATRMDI INH; +FLUT1BLS15 IH; -FLUT1BLS3 IH; +GABA300C PO; +INSU-1163 SQ; -LISPRO; +LORA-476 PO; +PRED10TA5 PO; +ZOLP5TAB1 PO
[2023-03-22 14:20] VITALS: BP 140/70
[2023-03-22] MEDS ORDERED: MORPHINE SULFATE 4 MG/ML SYR IVP ONE (15:00)
[2023-03-22 15:27] LABS: BASOPHILS # (AUTO) 0.1 K/uL (0.00-0.22); BASOPHILS % (AUTO) 1.1 % (0.0-2.0); EOSINOPHILS # (AUTO) 0.1 K/uL (0-0.4); EOSINOPHILS % (AUTO) 1.1 % (0.0-4.0); HEMATOCRIT 29.6 % (36-48); HEMOGLOBIN 9.4 g/dL (12.0-16.0); LYMPHOCYTES # (AUTO) 2.8 K/uL (2.5-16.5); LYMPHOCYTES % (AUTO) 31.2 % (20.5-51.1); MEAN CORPUSCULAR HEMOGLOBIN 25 pg (27-31); MEAN CORPUSCULAR HGB CONC 32 g/dL (33-37); MEAN CORPUSCULAR VOLUME 79.7 fL (80-94); MONOCYTES # (AUTO) 0.5 K/uL (0.8-1.0); MONOCYTES % (AUTO) 5.4 % (1.7-9.3); NEUTROPHILS # (AUTO) 5.5 K/uL (1.8-7.7); NEUTROPHILS % (AUTO) 61.2 % (42.2-75.2); PLATELET COUNT (AUTO) 375 K/uL (140-450); RED BLOOD CELL COUNT(AUTO) 3.71 MIL/uL (4.20-5.40); WHITE BLOOD COUNT (AUTO) 8.9 K/uL (4.8-10.8)
[2023-03-22 15:41] LABS: ALBUMIN 3.5 g/dL (3.4-5.0); CARBON DIOXIDE 30.4 mmol/L (21-32); CREATININE 0.6 mg/dL (0.6-1.3); POTASSIUM 4.4 mmol/L (3.5-5.1); TOTAL BILIRUBIN 0.1 mg/dL (0.0-1.0)
--- NOTE | 2023-03-22 15:46 | NUR ---
Dr. Penn evaluating patient at bedside.
--- NOTE | 2023-03-22 17:14 | NUR ---
The patient's care was reviewed and supervised by [place] [facility], RN.
[2023-03-22 17:17] VITALS: BP 140/65
--- NOTE | 2023-03-22 17:17 | NUR ---
Patient discharged with v/s stable. Written and verbal after care instructions given. Patient verbalized understanding. Ambulatory with steady gait. All questions addressed prior to discharge. Advised to follow up with PMD.
--- NOTE | 2023-03-22 17:21 | NUR ---
The patient's care was reviewed and supervised by [place] [facility], RN.
== END 2023-03-22 17:17 | disposition home or self-care (01) ==
LOC: MED 14:16
DX: E11.649 Type 2 diabetes mellitus with hypoglycemia without coma (principal); J44.9 Chronic obstructive pulmonary disease, unspecified; K21.9 Gastro-esophageal reflux disease without esophagitis; I50.9 Heart failure, unspecified; Z90.49 Acquired absence of other specified parts of digestive tract; Z85.118 Personal history of other malignant neoplasm of bronchus and lung; Z88.0 Allergy status to penicillin; Z88.1 Allergy status to other antibiotic agents; Z88.8 Allergy status to other drugs, medicaments and biological substances; Z79.899 Other long term (current) drug therapy
CPT/HCPCS: 36415; 80053; 85025; 93005; 96374; 99284; J2270

== ENCOUNTER 2023-05-03 11:42 | Inpatient (IN) | payer OTHER ==
[~2023-05-03] VITALS: Ht 157.5 cm; Wt 53.1 kg
[~2023-05-03 11:42] MED LIST changes: -ALBU0.0912 IH
[2023-05-03 12:01] VITALS: BP 145/102; PULSE 111; RESP 24; O2SAT 96
--- NOTE | 2023-05-03 12:10 | NUR ---
PT TO BED 8 , REPORT GIVEN TO RN AND DR CAMARGO
[2023-05-03] MEDS ORDERED: ALBUTEROL SULFATE/IPRATROPIU 3 ML SOL IH ONE ×3 (12:12→13:40)
[2023-05-03] MEDS ORDERED: methylPREDNISolone SS 125 MG/2 ML VIAL IVP ONE (12:15)
[2023-05-03] MEDS ORDERED: HYDROcodone/APAP 5/325 MG 1 TAB TAB PO ONE (12:15)
[2023-05-03 12:16] VITALS: PULSE 94; RESP 24; O2SAT 96
--- NOTE | 2023-05-03 12:38 | NUR ---
Received the patient from Triage, presented to the ER with C/O SOB, observed with labored breathing using her accessory muscles, audible rhonchi, D(+) SWIFT. Patient is A/O X 4, C/O 9/10 chest/back pain/discomfort, denies palpitation/dizziness/nausea/vomiting/headache. Patient seen by the provider, orders in place and completed. Patient placed on the telemetry monitor and sinus tachycardia observed, ECG, CXR ordered and completed. (LT) A/C #20G angio-cath inserted, patent, site WNL, blood collected and sent. Breathing treatment provided by RT. Lyla medicated as per orders (see eMAR). Patient is stable on the stretcher in the lowest position, wheels locked, call lake within reach and awaiting disposition,
[2023-05-03 12:40] VITALS: PULSE 103; RESP 24; O2SAT 98
[2023-05-03 12:42] LABS: BASOPHILS # (AUTO) 0.1 K/uL (0.00-0.22); BASOPHILS % (AUTO) 0.8 % (0.0-2.0); EOSINOPHILS % (AUTO) 0.1 % (0.0-4.0); HEMOGLOBIN 9.6 g/dL (12.0-16.0); LYMPHOCYTES # (AUTO) 1.6 K/uL (2.5-16.5); LYMPHOCYTES % (AUTO) 22.8 % (20.5-51.1); MEAN CORPUSCULAR HEMOGLOBIN 24 pg (27-31); MEAN CORPUSCULAR HGB CONC 31 g/dL (33-37); MEAN CORPUSCULAR VOLUME 76.9 fL (80-94); MONOCYTES # (AUTO) 0.6 K/uL (0.8-1.0); MONOCYTES % (AUTO) 8.6 % (1.7-9.3); NEUTROPHILS # (AUTO) 4.6 K/uL (1.8-7.7); NEUTROPHILS % (AUTO) 67.7 % (42.2-75.2); PLATELET COUNT (AUTO) 466 K/uL (140-450); RED BLOOD CELL COUNT(AUTO) 4.03 MIL/uL (4.20-5.40); RED CELL DISTRIBUTION WIDTH 19.1 % (11.6-13.7); WHITE BLOOD COUNT (AUTO) 6.9 K/uL (4.8-10.8)
[2023-05-03 12:59] LABS: ALBUMIN 3.6 g/dL (3.4-5.0); ANION GAP 17.8 (8-16); CARBON DIOXIDE 22.1 mmol/L (21-32); CREATININE 0.8 mg/dL (0.6-1.3); POTASSIUM 3.9 mmol/L (3.5-5.1); TOTAL BILIRUBIN 0.3 mg/dL (0.0-1.0)
[2023-05-03] MEDS ORDERED: AZITHROMYCIN 500 MG in DEXTROSE 5% 250 ML IV ONE (13:40)
[2023-05-03] MEDS ORDERED: MORPHINE SULFATE 2 MG/ML SYR IVP STA (13:40)
[2023-05-03] MEDS ORDERED: INSULIN REGULAR, HUMAN 100 UNIT/ML VIAL SUBQ ONE (13:40)
[2023-05-03] MEDS ORDERED: cefTRIAXone 1,000 MG VIAL ONE (13:50)
[2023-05-03] MEDS ORDERED: POTASSIUM CHLORIDE 10 MEQ TABER PO PRN (15:20)
[2023-05-03] MEDS ORDERED: LORazepam 1 MG TAB PO PRN (15:20)
[2023-05-03] MEDS ORDERED: MORPHINE SULFATE 4 MG/ML SYR IVP PRN (15:20)
[2023-05-03] MEDS ORDERED: MAGNESIUM OXIDE 400 MG TAB PO PRN (15:20)
[2023-05-03] MEDS ORDERED: HYDROcodone/APAP 5/325 MG 1 TAB TAB PO PRN (15:20)
[2023-05-03] MEDS ORDERED: ACETAMINOPHEN 325 MG TAB PO PRN (15:20)
[2023-05-03] MEDS ORDERED: DEXTROSE 50% 50 ML SYR IVP PRN (15:25)
[2023-05-03] MEDS: BLOOD GLUCOSE MONITORING 1 DEV DEV FS SCH ×2 (16:30→21:53)
[2023-05-03] MEDS ORDERED: AZITHROMYCIN 500 MG INJ VIAL IV ONE (17:02)
[2023-05-03] MEDS: MORPHINE SULFATE 4 MG/ML SYR IVP PRN ×3 (17:09→23:50)
[2023-05-03] MEDS: INSULIN LANTUS 100 UNITS/ML 10 ML VIAL SUBQ SCH ×2 (17:17→21:50)
--- NOTE | 2023-05-03 17:49 | NUR ---
Patient remains the same with no decline in his status,C/O pain 7/10 pain/discomfort. Patient medicated as per MD orders. Patient has an assigned bed, verbal report via the telephone to Dre MACKENZIE. Patient transported safely via stretcher on the monitor to her assigned bed with all her belongings.
--- NOTE | 2023-05-03 17:59 | NUR ---
Patient will be admitted to care of DR CHAVARRIA. Admited to TELEMETRY. Will go to [id number]. Belongings list completed. Report to LORI ANGULO.
[2023-05-03] MEDS ORDERED: ALBUTEROL SULFATE/IPRATROPIU 3 ML SOL IH SCH (19:00)
[2023-05-03 19:15] VITALS: PULSE 88; RESP 22; O2SAT 96
--- NOTE | 2023-05-03 19:30 | NUR ---
RECEIVED REPORT FROM DAY SHIFT RN FOR CONTINUITY OF CARE. PT IS AWAKE AND ALERT. RESTING IN BED. NOT IN ANY DISTRESS. ON 2L SATING 98%. PT HAS IV ON LEFT AC 20 GAUGE SALINE LOCK. POC DISCUSSED. CALL LIGHT WITHIN REACH. WILL CONTINUE TO MONITOR.
[2023-05-03] MEDS: methylPREDNISolone SS 40 MG/ML VIAL IVP SCH (19:52)
[2023-05-03] MEDS: INSULIN LISPRO 100 UNITS/ML VIAL SUBQ SCH (19:55)
[2023-05-03 20:00] VITALS: BP 145/76; PULSE 76; PULSE 95; RESP 20; TEMP 98.3; O2SAT 98
[2023-05-03] MEDS: INSULIN LISPRO SLIDING SCALE 100 UNITS/ML VIAL SUBQ PRN (21:52)
[2023-05-03 23:53] VITALS: PULSE 103; RESP 24; O2SAT 97
[2023-05-03] MEDS: ALBUTEROL SULFATE/IPRATROPIU 3 ML SOL IH SCH (23:53)
[2023-05-04] VITALS (12 sets, daily range): BP systolic 123–144; BP diastolic 72–82; PULSE 71–99; RESP 18–24; TEMP 97.3–98.3; O2SAT 90–99
[2023-05-04] MEDS: methylPREDNISolone SS 40 MG/ML VIAL IVP SCH ×4 (00:39→21:04)
[2023-05-04] MEDS: MORPHINE SULFATE 4 MG/ML SYR IVP PRN ×7 (02:53→23:00)
[2023-05-04] MEDS: ALBUTEROL SULFATE/IPRATROPIU 3 ML SOL IH SCH ×6 (03:36→23:27)
[2023-05-04] MEDS: BLOOD GLUCOSE MONITORING 1 DEV DEV FS SCH ×4 (06:34→21:17)
[2023-05-04] MEDS: INSULIN LISPRO SLIDING SCALE 100 UNITS/ML VIAL SUBQ PRN ×3 (06:34→21:16)
--- NOTE | 2023-05-04 07:27 | NUR ---
ENDORSED PT TO DAY SHIFT RN FOR CONTINUITY OF CARE. PT IS STABLE.
--- NOTE | 2023-05-04 07:30 | NUR ---
RECEIVED PT AWAKE, ALERT AND ORIENTED, SEATED ON THE SIDE OF BED, ON O2 2LNC, IV LINE NOTED ON THE LEFT AC G. 20 ON SALINE LOCK, NO SIGN OF DISTRESS NOTED AND WILL CONTINUE TO MONITOR PT.
--- NOTE | 2023-05-04 09:24 | NUR ---
UPON ARRIVAL AT 0715, PT WAS SITTING ON SIDE OF BED SOUNDING VERY COARSE WITH A PERSISTENT NON-PRODUCTIVE COUGH. PT TACHYPNIC-RR 24-, O2 SATURATION 96, AND HR 82. GAVE PT TREATMENT IS IMPROVED POST TREATMENT. WILL REQUEST AN ORDER FOR MUCOMYST FROM THE DOCTOR.
[2023-05-04] MEDS: INSULIN LISPRO 100 UNITS/ML VIAL SUBQ SCH ×3 (09:37→17:00)
[2023-05-04] MEDS: INSULIN LANTUS 100 UNITS/ML 10 ML VIAL SUBQ SCH ×2 (09:39→21:17)
[2023-05-04] MEDS: guaiFENesin 600 MG TABER PO SCH ×2 (11:44→21:02)
[2023-05-04] MEDS: ACETYLCYSTEINE 10% (100 MG/ML) 100 MG/ML VIAL INH SCH ×2 (12:02→19:33)
[2023-05-04] MEDS: AZITHROMYCIN 500 MG in DEXTROSE 5% 250 ML IV SCH (17:01)
--- NOTE | 2023-05-04 17:07 | NUR ---
BLOOD GLUCOSE WAS CHECKED AND IS 62, PT WAS GIVEN TWO APPLE JUICE WITH A PACKET OF SPLENDA AND A TUNA SANDWICH. WILL RECHECK BLOOD GLUCOSE IN AN HOUR.
--- NOTE | 2023-05-04 19:13 | NUR ---
ENDORSED PT TO NIGHT RN FOR CONTINUITY OF CARE, PT IS STABLE AT THIS TIME.
--- NOTE | 2023-05-04 19:30 | NUR ---
RECEIVED REPORT FROM DAY SHIFT RN FOR CONTINUITY OF CARE. PT IS AWAKE AND ALERT. RESTING IN BED. NOT IN ANY DISTRESS. ON 2L SATING 97%. PT HAS IV ON LEFT AC 20 GAUGE SALINE LOCK. POC DISCUSSED. CALL LIGHT WITHIN REACH. WILL CONTINUE TO MONITOR.
[2023-05-05] VITALS (13 sets, daily range): BP systolic 123–155; BP diastolic 69–84; PULSE 69–90; RESP 18–22; TEMP 96.5–98.5; O2SAT 92–100
[2023-05-05] MEDS: ACETYLCYSTEINE 10% (100 MG/ML) 100 MG/ML VIAL INH SCH ×4 (00:26→19:40)
[2023-05-05] MEDS: MORPHINE SULFATE 4 MG/ML SYR IVP PRN ×7 (02:10→22:20)
--- NOTE | 2023-05-05 02:12 | NUR ---
MEDICATION ADMINISTERED TO PATIENT FOR 9/10 PAIN. CHECKED PATIENT'S VITALS AND CHART; MORPHINE 4MG WAS APPROPRIATE TO ADMINISTER. ADMINISTRATION WAS SUCCESSFUL WITHOUT ANY ISSUES WITH IV. WILL INFORM RN MARIE OF MEDICATION ADMINISTRATION.
[2023-05-05] MEDS: ALBUTEROL SULFATE/IPRATROPIU 3 ML SOL IH SCH ×6 (03:13→22:23)
[2023-05-05] MEDS: methylPREDNISolone SS 40 MG/ML VIAL IVP SCH ×3 (05:09→21:56)
[2023-05-05] MEDS: BLOOD GLUCOSE MONITORING 1 DEV DEV FS SCH ×4 (06:44→21:55)
--- NOTE | 2023-05-05 07:18 | NUR ---
ENDORSED PT TO DAY SHIFT NURSE FOR CONTINUITY OF CARE. PT IS STABLE.
[2023-05-05] MEDS: guaiFENesin 600 MG TABER PO SCH ×2 (08:53→21:56)
[2023-05-05] MEDS: INSULIN LISPRO 100 UNITS/ML VIAL SUBQ SCH ×3 (09:01→18:08)
[2023-05-05] MEDS: INSULIN LANTUS 100 UNITS/ML 10 ML VIAL SUBQ SCH ×2 (09:08→22:00)
[2023-05-05 12:22] LABS: BASOPHILS % (AUTO) 0.1 % (0.0-2.0); HEMATOCRIT 31.2 % (36-48); HEMOGLOBIN 9.5 g/dL (12.0-16.0); LYMPHOCYTES # (AUTO) 0.9 K/uL (2.5-16.5); MEAN CORPUSCULAR HEMOGLOBIN 24 pg (27-31); MEAN CORPUSCULAR HGB CONC 31 g/dL (33-37); MEAN CORPUSCULAR VOLUME 77.2 fL (80-94); MONOCYTES # (AUTO) 0.5 K/uL (0.8-1.0); MONOCYTES % (AUTO) 5.7 % (1.7-9.3); NEUTROPHILS # (AUTO) 8.2 K/uL (1.8-7.7); PLATELET COUNT (AUTO) 530 K/uL (140-450); RED BLOOD CELL COUNT(AUTO) 4.05 MIL/uL (4.20-5.40); WHITE BLOOD COUNT (AUTO) 9.6 K/uL (4.8-10.8)
[2023-05-05 12:43] LABS: ANION GAP 14.3 (8-16); CARBON DIOXIDE 27.8 mmol/L (21-32); CREATININE 0.7 mg/dL (0.6-1.3); POTASSIUM 4.1 mmol/L (3.5-5.1)
[2023-05-05 13:45] LABS: LYMPHOCYTES % (AUTO) 9.1 % (20.5-51.1); NEUTROPHILS % (AUTO) 85.1 % (42.2-75.2)
[2023-05-05] MEDS: AZITHROMYCIN 500 MG in DEXTROSE 5% 250 ML IV SCH (16:13)
--- NOTE | 2023-05-05 18:30 | NUR ---
PT RESTING IN BED, RESPIRATIONS EVEN AND UL, NO C/O PAIN AT THIS TIME. IV SITE WNL. ALL NEEDS MET. NO SIGNIFICANT CHANGES THROUGHOUT SHIFT. BED IN LOWEST POSITION, CALL LIGHT IN REACH, SAFETY MEASURES IN PLACE.
--- NOTE | 2023-05-05 19:12 | NUR ---
REPORT GIVEN TO PM NURSE FOR CONTINUITY OF CARE.
--- NOTE | 2023-05-05 19:30 | NUR ---
RECEIVED REPORT FROM DAY SHIFT NURSE DESIRE FOR CONTINUITY OF CARE. PATIENT IS A&O X4. PATIENT IS ON NC 2L, BREATHING IS NORMAL WITH SYMMETRICAL RISE AND FALL OF CHEST. IV IS A 22G LFA, NO FLUIDS RUNNING. PATIENT IS LYING SEMI-FOWLERS IN BED. BED IS IN LOWEST POSITION, WHEELS LOCKED, CALL LIGHT IN PLACE. WILL CONTINUE TO OBSERVE PATIENT.
--- NOTE | 2023-05-05 20:00 | NUR ---
PAIN REASSESSMENT DONE AT 1952; PATIENT STATED PAIN 3/10. WILL CONTINUE TO OBSERVE PATIENT.
[2023-05-05] MEDS: INSULIN LISPRO SLIDING SCALE 100 UNITS/ML VIAL SUBQ PRN (22:03)
--- NOTE | 2023-05-05 23:30 | NUR ---
ADMINISTERED 2100 MEDICATION TO PATIENT. MEDICATION ADMINISTERED SUCCESSFULLY. PATIENT REQUESTED PAIN MEDICATION FOR 9/10 PAIN. CHECKED VITALS AND CHART; MORPHINE WAS APPROPRIATE TO ADMINISTER. MEDICATION WAS ADMINISTERED SUCCESSFULLY. REASSESSED PATIENT AT 2320; PATIENT WAS SLEEPING. WILL CONTINUE TO OBSERVE PATIENT.
[2023-05-06] VITALS (10 sets, daily range): BP systolic 131–150; BP diastolic 65–66; PULSE 70–90; RESP 17–20; TEMP 96.2–98.6; O2SAT 90–100
[2023-05-06] MEDS: MORPHINE SULFATE 4 MG/ML SYR IVP PRN ×7 (01:32→22:19)
[2023-05-06] MEDS: ACETYLCYSTEINE 10% (100 MG/ML) 100 MG/ML VIAL INH SCH ×5 (02:53→23:37)
[2023-05-06] MEDS: ALBUTEROL SULFATE/IPRATROPIU 3 ML SOL IH SCH ×6 (02:53→23:24)
--- NOTE | 2023-05-06 03:00 | NUR ---
PATIENT REQUESTED PAIN MEDICATION. CHECKED PATIENT'S VITALS (BP 113/65, HR 75) AND CHART; MORPHINE WAS APPROPRIATE TO ADMINISTER. MEDICATION ADMINISTERED SUCCESSFULLY. REASSESSED PATIENT AT 0232, PATIENT WAS SLEEPING. BREATHING WAS NORMAL WITH SYMMETRICAL RISE AND FALL OF CHEST. WILL CONTINUE TO OBSERVE PATIENT.
--- NOTE | 2023-05-06 05:55 | NUR ---
PATIENT CALLED AND REQUESTED PAIN MEDICATION FOR 06/30 PAIN. CHECKED PATIENT'S VITALS AND CHART; MORPHINE WAS APPROPRIATE TO ADMINISTER. MEDICATION ADMINISTERED SUCCESSFULLY WITH SYMMETRICAL RISE AND FALL OF CHEST. REASSESSED PATIENT'S PAIN; PATIENT STATED 11/30. WILL CONTINUE TO OBSERVE PATIENT.
[2023-05-06] MEDS: methylPREDNISolone SS 40 MG/ML VIAL IVP SCH ×3 (06:04→20:56)
[2023-05-06] MEDS: BLOOD GLUCOSE MONITORING 1 DEV DEV FS SCH ×4 (06:41→20:59)
--- NOTE | 2023-05-06 07:42 | NUR ---
ENDORSED TO DAY SHIFT NURSE LORI FOR CONTINUITY OF CARE. PATIENT IS STABLE.
--- NOTE | 2023-05-06 08:00 | NUR ---
Patient's Plan of Care was discussed and reviewed with GURDEEP: Dre
--- NOTE | 2023-05-06 08:13 | NUR ---
RECEIVED REPORT FROM RECOVERY RN NURSE FOR CONTINUITY OF CARE. PATIENT IS AWAKE, ALERT AND ORIENTED X4, CONTINENT AND AMBULATORY. RECEIVING BREATHING TREATMENT AT BEDSIDE. FLUSHED IV SITE FOR PATENCY. POC DISCUSSED, CALL LIGHT PLACED WITHIN REACH, SAFETY MEASURES IN PLACE.
--- NOTE | 2023-05-06 08:49 | NUR ---
PATIENT HAS BEEN SCREENED AND CATEGORIZED HIGH NUTRITION RISK. PATIENT WILL BE SEEN WITHIN 1-2 DAYS OF ADMISSION. 05/06/[address]
[2023-05-06] MEDS: guaiFENesin 600 MG TABER PO SCH ×2 (08:58→20:55)
--- NOTE | 2023-05-06 09:00 | NUR ---
CURRENT BLOOD SUGAR 156. SCHEDULED HUMALOG AND LANTUS INSULIN ADMINISTERED WITH NO COMPLICATIONS. Addendum: 05/06/23 at 1128 by Dre Truong LVN LVN BLOOD SUGAR 165
[2023-05-06] MEDS: INSULIN LISPRO 100 UNITS/ML VIAL SUBQ SCH ×3 (09:41→17:00)
[2023-05-06] MEDS: INSULIN LANTUS 100 UNITS/ML 10 ML VIAL SUBQ SCH ×2 (09:49→21:06)
--- NOTE | 2023-05-06 10:17 | NUR ---
PATIENT RECEIVED MORPHINE 4MG IVP AT 0917. UPON PAIN REASSESSMENT, PATIENT REPORTS A PAIN LEVEL OF 7/10. PAIN MEDICATION SLIGHTLY EFFECTIVE. ENCOURAGED THE PATIENT TO REPOSITION FREQUENTLY.
[2023-05-06 11:24] LABS: BASOPHILS # (AUTO) 0.1 K/uL (0.00-0.22); BASOPHILS % (AUTO) 0.8 % (0.0-2.0); HEMATOCRIT 30.1 % (36-48); HEMOGLOBIN 9.3 g/dL (12.0-16.0); LYMPHOCYTES # (AUTO) 0.7 K/uL (2.5-16.5); LYMPHOCYTES % (AUTO) 7.4 % (20.5-51.1); MEAN CORPUSCULAR HEMOGLOBIN 24 pg (27-31); MEAN CORPUSCULAR HGB CONC 31 g/dL (33-37); MEAN CORPUSCULAR VOLUME 76.5 fL (80-94); MONOCYTES # (AUTO) 0.3 K/uL (0.8-1.0); MONOCYTES % (AUTO) 2.9 % (1.7-9.3); NEUTROPHILS # (AUTO) 8.1 K/uL (1.8-7.7); NEUTROPHILS % (AUTO) 88.9 % (42.2-75.2); PLATELET COUNT (AUTO) 479 K/uL (140-450); RED BLOOD CELL COUNT(AUTO) 3.93 MIL/uL (4.20-5.40); WHITE BLOOD COUNT (AUTO) 9.2 K/uL (4.8-10.8)
[2023-05-06 11:33] LABS: ANION GAP 13.8 (8-16); CARBON DIOXIDE 29.3 mmol/L (21-32); CREATININE 0.8 mg/dL (0.6-1.3); POTASSIUM 4.1 mmol/L (3.5-5.1)
[2023-05-06] MEDS: INSULIN LISPRO SLIDING SCALE 100 UNITS/ML VIAL SUBQ PRN ×2 (11:51→21:08)
--- NOTE | 2023-05-06 12:25 | NUR ---
MORPHINE 4MG PULLED BY ME AND ADMINISTERED BY RN: MELIDA. PT TOLERATED WELL, WILL REASSESS PAIN LEVEL IN ONE HOUR.
--- NOTE | 2023-05-06 13:42 | NUR ---
PT. WITH LOW MARLEY SCALE AT MODERATE TO HIGH RISK, CONTINUE TO FOLLOW PRESSURE INJURY PREVENTION INTERVENTIONS. -POSITIONING: TURN AND REPOSITION PATIENT Q 2H OR SOONER USE PILLOWS TO KEEP BONY PROMINENCES FROM DIRECT CONTACT WITH SURFACES USE REPOSITIONING [place]GES TO PROVIDE 30-DEGREE ANGLE FOR SIDE LYING POSITIONS OFFLOADING OR FOAM DRESSING TO ALL TUBING TO PREVENT MEDICAL DEVICES RELATED PRESSURE INJURY -RE-EVALUATING AND MANAGING INCONTINENCE MONITOR SKIN CONDITION DURING POSITION CHANGE DO NOT MASSAGE REDNESS, BONY PROMINENCES FREQUENT KEVIN-CARE AND PROVIDE BARRIER CREAMS PRN IF SOILING MOISTURE CONTROL BY OFFER BED GODWIN/URINAL /ABSORBENT PAD TO WICK AND HOLD MOISTURE KEEP SKIN DRY AND PROTECT FROM FRICTION -MANAGE FRICTION/SHEAR/MOBILITY KEEP HOB AT THE LOWEST LEVEL OF ELEVATION NO MORE THAN 30 DEGREE UNLESS OTHERWISE CONTRAINDICATED USE LIFT SHEET OR TRANSFER DEVICE TO MOVE PATIENT AND PREVENT LATERAL SHEER. PROTECT HEELS, ELBOWS BONY PROMINENCES WITH SKIN BERRIES OR FOAM DRESSING IF EXPOSED TO FRICTION OFFLOAD BILATERAL HEELS BY PLACING PILLOWS UNDER CALVES AT ALL TIMES, UNLESS OTHERWISE CONTRAINDICATED -PRESSURE REDISTRIBUTION SURFACE THERAPY KRYSTAL ISOFLEX MATTRESS -NUTRITION: PLEASE FOLLOW RD RECOMMENDATIONS AND OFFER NUTRITION SUPPLEMENTS IF ORDERED. PLEASE CONTACT WOUND CARE NURSE FOR ANY QUESTION AND CHANGE OF WOUND CONDITION.
--- NOTE | 2023-05-06 14:08 | NUR ---
05/06/23 RD INITIAL ASSESSMENT COMPLETED PLEASE REFER TO NUTRITION ASSESSMENT UNDER CARE ACTIVITY FOR ESTIMATED NUTRITIONAL NEEDS. 1. CONTINUE CCHO DIET TOLERATED AND ADD CARDIAC DIET 2. RD TO FOLLOW-UP 3-5 DAYS, MODERATE RISK MARIELLA DAUGHERTY RD
--- NOTE | 2023-05-06 14:21 | NUR ---
DC PLANN[age] YRS OLD FEMALE PATIENT WAS ADMITTED FROM HOME WITH A DX OF COPD EXACERBATION, HYPERGLYCEMIA. PATIENT HAS A HX OF COPD, LUNG CA, ON HOME O2 2L/NC DM AND HLD. CXR SHOWED NO ACUTE FINDINGS. RAPID COVID TEST NEGATIVE. ADMINISTERED IV SOLU-MEDROL IV ABX AZITHROMYCIN AND MORPHINE IV FOR PAIN. CONSULTED WITH [facility]. DC PLAN TO GO HOME WHEN STABLE. CM TO FOLLOW
--- NOTE | 2023-05-06 17:29 | NUR ---
HELD SCHEDULED 15 UNIT HUMALOG ADMINISTRATION DUE TO PATIENTS BLOOD SUGAR BEING 85. NO SIGNS/SYMPTOMS OF DISTRESS NOTED, WILL CONTINUE MONITORING.
[2023-05-06] MEDS: AZITHROMYCIN 500 MG in DEXTROSE 5% 250 ML IV SCH (18:29)
--- NOTE | 2023-05-06 19:15 | NUR ---
RECEIVED PT FROM MORNING SHIFT NURSE. PT IS AOX4, AMBULATORY, ABLE TO VERBALIZE NEEDS AND ABLE TO FOLLOW COMMANDS. PT IS ON 2L NC AND ON CCHO DIET. PT HAS IV ON LEFT FOREARM GAUGE 22, SALINE LOCK. PT HAS INTACT SKIN. NO COMPLAIN OF PAIN AT THIS TIME. NO S/S OF RESPIRATORY DISTRESS NOTED. ALL SAFETY MEASURES IMPLEMENTED. BED IN LOW POSITION, BED WHEELS ON LOCK AND CALL LIGHT WITHIN REACH.
--- NOTE | 2023-05-06 21:06 | NUR ---
ALL SCHEDULED AND PRESCRIBED MEDICATION WAS GIVEN TO PT PER MD ORDER. PT BLOOD GLUCOSE IS 314. HUMALOG INSULIN 8 UNITS WAS ALSO GIVEN TO PT. ALL SAFETY MEASURES IMPLEMENTED. BED IN LOW POSITION, BED WHEELS ON LOCK AND CALL LIGHT WITHIN REACH.
--- NOTE | 2023-05-06 23:19 | NUR ---
PRN PAIN MEDICATION WAS GIVEN TO PT DUE TO CHEST AND BACK PAIN WITH PAIN SCALE OF 9/10. NO S/S OF RESPIRATORY DISTRESS NOTED. ALL SAFETY MEASURES IMPLEMENTED. BED IN LOW POSITION, BED WHEELS ON LOCK AND CALL LIGHT WITHIN REACH.
[2023-05-07] VITALS (11 sets, daily range): BP systolic 119–146; BP diastolic 61–83; PULSE 70–97; RESP 18–20; TEMP 97.3–97.9; O2SAT 89–99
[2023-05-07] MEDS: MORPHINE SULFATE 4 MG/ML SYR IVP PRN ×6 (01:43→19:52)
[2023-05-07] MEDS: ALBUTEROL SULFATE/IPRATROPIU 3 ML SOL IH SCH ×5 (03:04→19:04)
[2023-05-07] MEDS: methylPREDNISolone SS 40 MG/ML VIAL IVP SCH ×3 (05:14→20:29)
[2023-05-07] MEDS: BLOOD GLUCOSE MONITORING 1 DEV DEV FS SCH ×4 (06:39→20:35)
--- NOTE | 2023-05-07 06:39 | NUR ---
PT BLOOD GLUCOSE IS 127, NO INSULIN COVERAGE NEEDED.
--- NOTE | 2023-05-07 07:28 | NUR ---
PT IS STABLE. ENDORSED PT TO MORNING SHIFT NURSE FOR CONTINUITY OF CARE.
[2023-05-07] MEDS: ACETYLCYSTEINE 10% (100 MG/ML) 100 MG/ML VIAL INH SCH ×2 (08:03→11:10)
[2023-05-07] MEDS: guaiFENesin 600 MG TABER PO SCH ×2 (09:38→20:29)
[2023-05-07] MEDS: INSULIN LANTUS 100 UNITS/ML 10 ML VIAL SUBQ SCH ×2 (09:44→20:44)
[2023-05-07] MEDS: INSULIN LISPRO 100 UNITS/ML VIAL SUBQ SCH ×3 (09:48→18:02)
[2023-05-07 11:58] LABS: BASOPHILS % (AUTO) 0.1 % (0.0-2.0); HEMATOCRIT 30.5 % (36-48); HEMOGLOBIN 9.4 g/dL (12.0-16.0); LYMPHOCYTES # (AUTO) 0.8 K/uL (2.5-16.5); LYMPHOCYTES % (AUTO) 7.3 % (20.5-51.1); MEAN CORPUSCULAR HEMOGLOBIN 24 pg (27-31); MEAN CORPUSCULAR HGB CONC 31 g/dL (33-37); MEAN CORPUSCULAR VOLUME 76.4 fL (80-94); MONOCYTES # (AUTO) 0.5 K/uL (0.8-1.0); MONOCYTES % (AUTO) 4.9 % (1.7-9.3); NEUTROPHILS # (AUTO) 9.6 K/uL (1.8-7.7); NEUTROPHILS % (AUTO) 87.7 % (42.2-75.2); PLATELET COUNT (AUTO) 504 K/uL (140-450); RED BLOOD CELL COUNT(AUTO) 3.99 MIL/uL (4.20-5.40); RED CELL DISTRIBUTION WIDTH 19.3 % (11.6-13.7)
[2023-05-07 12:14] LABS: ANION GAP 12.3 (8-16); CARBON DIOXIDE 32.8 mmol/L (21-32); CREATININE 0.7 mg/dL (0.6-1.3); POTASSIUM 4.1 mmol/L (3.5-5.1)
[2023-05-07] MEDS ORDERED: MUC104 NEB (17:22)
[2023-05-07] MEDS ORDERED: AZIT250T3 PO (17:22)
[2023-05-07] MEDS ORDERED: PRED20TA5 PO (17:22)
[2023-05-07] MEDS: AZITHROMYCIN 500 MG in DEXTROSE 5% 250 ML IV SCH (17:56)
--- NOTE | 2023-05-07 19:15 | NUR ---
RECEIVED PT FROM MORNING SHIFT NURSE. PT IS AOX4, AMBULATORY, ABLE TO VERBALIZE NEEDS AND ABLE TO FOLLOW COMMANDS. PT IS ON ROOM AIR AND ON CCHO DIET. PT HAS IV ON RIGHT WRIST GAUGE 24, RUNNING WITH AZITROMYCIN 250ML/HR. PT HAS INTACT SKIN. COMPLAIN OF CHEST AND BACK PAIN. NO S/S OF RESPIRATORY DISTRESS NOTED. ALL SAFETY MEASURES IMPLEMENTED. BED IN LOW POSITION, BED WHEELS ON LOCK AND CALL LIGHT WITHIN REACH.
--- NOTE | 2023-05-07 19:52 | NUR ---
PRN PAIN MEDICATION WAS GIVEN TO PT DUE TO CHEST AND BACK PAIN WITH PAIN SCALE OF 10/10. ALL SAFETY MEASURES IMPLEMENTED. BED IN LOW POSITION, BED WHEELS ON LOCK AND CALL LIGHT WITHIN REACH.
--- NOTE | 2023-05-07 21:08 | NUR ---
SCHEDULED AND PRESCRIBED MEDICATION WAS GIVEN TO PT EXCEPT LANTUS DUE BLOOD GLUCOSE IS 56. D50 WAS GIVEN TO PT. ALL SAFETY MEASURES IMPLEMENTED. BED IN LOW POSITION, BED WHEELS ON LOCK AND CALL LIGHT WITHIN REACH.
--- NOTE | 2023-05-07 21:10 | NUR ---
PT WAS DISCHARGED FROM THE HOSPITAL. ASSISTED THE PT TO CAR VIA WHEELCHAIR. ALL BELONGINGS WAS WITH THE PT AND DISCHARGED PAPER. Addendum: 05/07/23 at 2225 by Clara Espinosa RN WRONG TIME
--- NOTE | 2023-05-07 21:15 | NUR ---
PT RECENT BLOOD GLUCOSE IS 201 AFTER GIVING D50. NO COMPLAIN OF PAIN AND NO S/S OF RESPIRATORY DISTRESS NOTED. ALL SAFETY MEASURES IMPLEMENTED. BED IN LOW POSITION, BED WHEELS ON LOCK AND CALL LIGHT WITHIN REACH.
--- NOTE | 2023-05-07 21:20 | NUR ---
PT WAS DISCHARGED FROM THE HOSPITAL. ASSISTED THE PT TO CAR VIA WHEELCHAIR. ALL BELONGINGS WAS WITH THE PT AND DISCHARGED PAPER.
--- NOTE | 2023-05-10 11:51 | NUR ---
CALLED DR [facility] OFFICE LOCATED AT [address] [place] [address]. SPOKE WITH PATITO WHO WAS ABLE TO HELP ME SCHEDULE A HOSPITAL FOLLOW UP APPOINTMENT FOR 05/29/2023 AT 1000. CALLED PATIENT AND WAS ABLE TO INFORM HER OF THE ABOVE INFORMATION.
== END 2023-05-07 21:00 | disposition home or self-care (01) | DRG 190 ==
LOC: MED 11:42 → MTU 15:22 → UNDODISIN 17:59
PROVIDERS: ADMIT Student in an Organized Health Care Education/Training Program; ATTEND Student in an Organized Health Care Education/Training Program
DX: J44.1 Chronic obstructive pulmonary disease with (acute) exacerbation (principal); E11.10 Type 2 diabetes mellitus with ketoacidosis without coma; J96.11 Chronic respiratory failure with hypoxia; R07.89 Other chest pain; E78.5 Hyperlipidemia, unspecified; I11.0 Hypertensive heart disease with heart failure; Z20.822 Contact with and (suspected) exposure to COVID-19; I50.9 Heart failure, unspecified; K21.9 Gastro-esophageal reflux disease without esophagitis; I48.91 Unspecified atrial fibrillation; Z88.0 Allergy status to penicillin; Z88.8 Allergy status to other drugs, medicaments and biological substances; Z88.1 Allergy status to other antibiotic agents; Z79.82 Long term (current) use of aspirin; Z79.899 Other long term (current) drug therapy; Z79.4 Long term (current) use of insulin; Z83.3 Family history of diabetes mellitus; Z82.49 Family history of ischemic heart disease and other diseases of the circulatory system; Z83.49 Family history of other endocrine, nutritional and metabolic diseases; Z83.79 Family history of other diseases of the digestive system
CPT/HCPCS: 36415; 71045; 80048; 80053; 82948; 83880; 84484; 85025; 87081; 93005; 94640; 96372; 96374; 96375; 99285; J0456; J0696; J1644; J1815; J2270; J2920; J2930; J7060; Q0092

== ENCOUNTER 2023-06-30 08:18 | Emergency (ER) | payer OTHER ==
[~2023-06-30] VITALS: Ht 157.5 cm; Wt 51.3 kg
[~2023-06-30 08:18] MED LIST changes: +AZIT250T3 PO; +MUC104 NEB; -PRED10TA5 PO
[2023-06-30 08:22] VITALS: BP 130/74; PULSE 102; RESP 20; TEMP 97.6; O2SAT 97
[2023-06-30 08:59] VITALS: O2SAT 96
[2023-06-30] MEDS ORDERED: KETOROLAC 60 MG/2 ML VIAL IM ONE (09:55)
[2023-06-30] MEDS ORDERED: predniSONE 20 MG TAB PO ONE (09:55)
[2023-06-30] MEDS ORDERED: ALBUTEROL SULFATE/IPRATROPIU 3 ML SOL IH ONE (09:55)
[2023-06-30] MEDS ORDERED: ALBUTEROL 0.083% 2.5 MG/3 ML NEBU INH ONE (09:55)
[2023-06-30] MEDS ORDERED: LIDOCAINE 1% 500 MG/ 50 ML VIAL INJ ONE (10:00)
[2023-06-30] MEDS ORDERED: BACITRACIN OINT 500 UNITS/GM PKT TP ONE (10:00)
[2023-06-30 10:09] VITALS: PULSE 79; RESP 17; O2SAT 96
[2023-06-30] MEDS ORDERED: MORPHINE SULFATE 4 MG/ML SYR IM ONE (11:00)
[2023-06-30] MEDS ORDERED: LIDOCAINE MPF 1% 5 ML ONE (11:02)
[2023-06-30] MEDS ORDERED: PRON INH (11:18)
[2023-06-30] MEDS ORDERED: PRED20TA5 PO (11:18)
[2023-06-30 11:46] VITALS: BP 138/68; PULSE 84; RESP 16; O2SAT 96
== END 2023-06-30 13:00 | disposition home or self-care (01) ==
LOC: MED 08:18
DX: S61.411A Laceration without foreign body of right hand, initial encounter (principal); J44.1 Chronic obstructive pulmonary disease with (acute) exacerbation; E11.9 Type 2 diabetes mellitus without complications; K21.9 Gastro-esophageal reflux disease without esophagitis; I10 Essential (primary) hypertension; Z88.0 Allergy status to penicillin; Z88.1 Allergy status to other antibiotic agents; Z88.8 Allergy status to other drugs, medicaments and biological substances; Z79.899 Other long term (current) drug therapy; Z90.49 Acquired absence of other specified parts of digestive tract; Z98.890 Other specified postprocedural states; Z79.84 Long term (current) use of oral hypoglycemic drugs; X58.XXXA Exposure to other specified factors, initial encounter; Y93.89 Activity, other specified; Y92.89 Other specified places as the place of occurrence of the external cause; Y99.8 Other external cause status
CPT/HCPCS: 12002; 93005; 94640; 96372; 99284; J1885; J2001; J2270; J7512; J7613

== ENCOUNTER 2023-07-31 12:46 | Emergency (ER) | payer OTHER ==
[~2023-07-31] VITALS: Ht 157.5 cm; Wt 56.2 kg
[2023-07-31 12:48] VITALS: PULSE 94; RESP 24; O2SAT 94
[2023-07-31] MEDS ORDERED: ALBUTEROL 0.083% 2.5 MG/3 ML NEBU INH ONE (12:53)
[2023-07-31] MEDS ORDERED: ALBUTEROL SULFATE/IPRATROPIU 3 ML SOL IH ONE ×2 (12:53→13:15)
[2023-07-31 12:56] VITALS: BP 164/102; PULSE 103; RESP 18; TEMP 98.3; O2SAT 95
[2023-07-31] MEDS ORDERED: NACL 0.9% 1,000 ML IV ONE ×2 (13:15→14:55)
[2023-07-31] MEDS ORDERED: ALBUTEROL 0.083% 2.5 MG/3 ML NEBU INH SCH (13:55)
[2023-07-31] MEDS ORDERED: ALBUTEROL SULFATE/IPRATROPIU 3 ML SOL IH SCH (13:55)
[2023-07-31 14:01] LABS: BASOPHILS # (AUTO) 0.1 K/uL (0.00-0.22); BASOPHILS % (AUTO) 0.9 % (0.0-2.0); EOSINOPHILS % (AUTO) 0.2 % (0.0-4.0); HEMATOCRIT 33.1 % (36-48); LYMPHOCYTES # (AUTO) 0.9 K/uL (2.5-16.5); LYMPHOCYTES % (AUTO) 9.3 % (20.5-51.1); MEAN CORPUSCULAR HEMOGLOBIN 23 pg (27-31); MEAN CORPUSCULAR HGB CONC 30 g/dL (33-37); MEAN CORPUSCULAR VOLUME 76.2 fL (80-94); MONOCYTES # (AUTO) 0.5 K/uL (0.8-1.0); MONOCYTES % (AUTO) 4.4 % (1.7-9.3); NEUTROPHILS # (AUTO) 8.7 K/uL (1.8-7.7); NEUTROPHILS % (AUTO) 85.2 % (42.2-75.2); PLATELET COUNT (AUTO) 464 K/uL (140-450); RED BLOOD CELL COUNT(AUTO) 4.35 MIL/uL (4.20-5.40); RED CELL DISTRIBUTION WIDTH 20.7 % (11.6-13.7); WHITE BLOOD COUNT (AUTO) 10.2 K/uL (4.8-10.8)
[2023-07-31] MEDS ORDERED: ACETAMINOPHEN 325 MG TAB PO ONE (14:25)
[2023-07-31 14:29] LABS: ALBUMIN 3.6 g/dL (3.4-5.0); ANION GAP 16.4 (8-16); CALCIUM 8.7 mg/dL (8.5-10.1); CARBON DIOXIDE 24.8 mmol/L (21-32); CREATININE 0.9 mg/dL (0.6-1.3); POTASSIUM 4.2 mmol/L (3.5-5.1); TOTAL BILIRUBIN 0.3 mg/dL (0.0-1.0); TOTAL PROTEIN, SERUM 7.6 g/dL (6.4-8.2)
[2023-07-31 14:55] LABS: INR 1.03 (0.8-1.2); PARTIAL THROMBOPLASTIN TIME 25.4 secs (22-35.6); PROTHROMBIN TIME 10.8 secs (10.8-13.4)
[2023-07-31] MEDS ORDERED: INSULIN REGULAR, HUMAN 100 UNIT/ML VIAL IV ONE (14:55)
[2023-07-31] MEDS ORDERED: ONDANSETRON 4 MG/2 ML VIAL IVP ONE (15:00)
[2023-07-31] MEDS ORDERED: MORPHINE SULFATE 4 MG/ML SYR IVP ONE ×2 (15:00→18:15)
[2023-07-31 15:16] VITALS: PULSE 84; RESP 24; O2SAT 96
[2023-07-31] MEDS ORDERED: INSULIN REGULAR, HUMAN 100 UNIT/ML VIAL SUBQ ONE (16:10)
[2023-07-31] MEDS ORDERED: BENZ200C4 PO (18:15)
[2023-07-31] MEDS ORDERED: DOXY-690 PO (18:15)
[2023-07-31 18:38] VITALS: BP 137/54; PULSE 83; RESP 20; TEMP 98.3; O2SAT 96
== END 2023-07-31 18:35 | disposition home or self-care (01) ==
LOC: MED 12:46
DX: J44.1 Chronic obstructive pulmonary disease with (acute) exacerbation (principal); J96.11 Chronic respiratory failure with hypoxia; E11.65 Type 2 diabetes mellitus with hyperglycemia; I48.91 Unspecified atrial fibrillation; I11.0 Hypertensive heart disease with heart failure; I50.9 Heart failure, unspecified; K21.9 Gastro-esophageal reflux disease without esophagitis; Z79.899 Other long term (current) drug therapy; Z79.2 Long term (current) use of antibiotics; Z79.4 Long term (current) use of insulin; Z79.82 Long term (current) use of aspirin; Z88.8 Allergy status to other drugs, medicaments and biological substances; Z88.0 Allergy status to penicillin
CPT/HCPCS: 36415; 71045; 80053; 82948; 83880; 84484; 85025; 85610; 85730; 93005; 94640; 96361; 96372; 96374; 96375; 96376; 99285; J1815; J2270; J2405; J7030; J7613

== ENCOUNTER 2023-08-08 09:42 | Inpatient (IN) | payer OTHER ==
[~2023-08-08] VITALS: Ht 157.5 cm; Wt 54.9 kg
[~2023-08-08 09:42] MED LIST changes: +BENZ200C4 PO; +DOXY-690 PO
[2023-08-08 09:53] VITALS: BP 137/80; PULSE 105; RESP 22; TEMP 98.5; O2SAT 96
[2023-08-08] MEDS ORDERED: ALBUTEROL SULFATE/IPRATROPIU 3 ML SOL IH ONE ×2 (09:54→10:05)
[2023-08-08 10:18] VITALS: PULSE 75; RESP 20; O2SAT 95
[2023-08-08 10:33] LABS: BASOPHILS # (AUTO) 0.1 K/uL (0.00-0.22); EOSINOPHILS % (AUTO) 0.1 % (0.0-4.0); HEMATOCRIT 33.8 % (36-48); HEMOGLOBIN 10.2 g/dL (12.0-16.0); LYMPHOCYTES # (AUTO) 1.2 K/uL (2.5-16.5); LYMPHOCYTES % (AUTO) 16.6 % (20.5-51.1); MEAN CORPUSCULAR HEMOGLOBIN 23 pg (27-31); MEAN CORPUSCULAR HGB CONC 30 g/dL (33-37); MEAN CORPUSCULAR VOLUME 75.1 fL (80-94); MONOCYTES # (AUTO) 0.4 K/uL (0.8-1.0); MONOCYTES % (AUTO) 6.3 % (1.7-9.3); NEUTROPHILS # (AUTO) 5.4 K/uL (1.8-7.7); PLATELET COUNT (AUTO) 520 K/uL (140-450); RED CELL DISTRIBUTION WIDTH 19.9 % (11.6-13.7); WHITE BLOOD COUNT (AUTO) 7.1 K/uL (4.8-10.8)
[2023-08-08 10:45] LABS: ALBUMIN 3.7 g/dL (3.4-5.0); ANION GAP 12.6 (8-16); CALCIUM 9.3 mg/dL (8.5-10.1); CARBON DIOXIDE 28.5 mmol/L (21-32); POTASSIUM 5.1 mmol/L (3.5-5.1); TOTAL BILIRUBIN 0.2 mg/dL (0.0-1.0); TOTAL PROTEIN, SERUM 7.4 g/dL (6.4-8.2)
[2023-08-08] MEDS ORDERED: MORPHINE SULFATE 4 MG/ML SYR IVP ONE (11:40)
[2023-08-08] MEDS ORDERED: ALBUTEROL 0.083% 2.5 MG/3 ML NEBU INH ONE (11:40)
[2023-08-08] MEDS ORDERED: IPRATROPIUM 0.02% 0.5 MG/2.5 ML NEBU INH ONE (11:40)
[2023-08-08 11:53] VITALS: PULSE 79; RESP 18; O2SAT 100
[2023-08-08] MEDS ORDERED: LORazepam 2 MG/ML VIAL IVP PRN (14:15)
[2023-08-08] MEDS ORDERED: ONDANSETRON 4 MG/2 ML VIAL IVP PRN (14:15)
[2023-08-08] MEDS: LEVOFLOXACIN 500 MG/D5W PREMIX 100 ML IV SCH (15:00)
[2023-08-08] MEDS: MORPHINE SULFATE 2 MG/ML SYR IVP PRN ×2 (16:43→20:46)
[2023-08-08] MEDS ORDERED: DEXTROSE 50% 50 ML SYR IVP PRN (16:55)
[2023-08-08 18:48] VITALS: PULSE 88; RESP 19; O2SAT 99
[2023-08-08] MEDS: INSULIN LISPRO SLIDING SCALE 100 UNITS/ML VIAL SUBQ PRN ×2 (19:29→20:56)
[2023-08-08] MEDS: ACETAMINOPHEN 325 MG TAB PO PRN (19:46)
[2023-08-08 20:00] VITALS: BP 111/65; PULSE 77; RESP 19; TEMP 98; O2SAT 99
[2023-08-08] MEDS: ALBUTEROL 0.083% 2.5 MG/3 ML NEBU INH PRN (20:01)
[2023-08-08] MEDS: IPRATROPIUM 0.02% 0.5 MG/2.5 ML NEBU INH SCH (20:01)
[2023-08-08 20:04] VITALS: PULSE 80; RESP 18; O2SAT 100; O2SAT 96; O2SAT 99
[2023-08-08] MEDS: INSULIN LANTUS 100 UNITS/ML 10 ML VIAL SUBQ SCH (20:55)
[2023-08-08] MEDS: BLOOD GLUCOSE MONITORING 1 DEV DEV FS SCH (20:57)
[2023-08-09] VITALS (10 sets, daily range): BP systolic 118–156; BP diastolic 72–88; PULSE 66–93; RESP 16–20; TEMP 97.5–100.4; O2SAT 95–100
[2023-08-09] MEDS: IPRATROPIUM 0.02% 0.5 MG/2.5 ML NEBU INH SCH ×4 (00:43→19:36)
[2023-08-09] MEDS: ALBUTEROL 0.083% 2.5 MG/3 ML NEBU INH PRN ×3 (00:44→19:36)
[2023-08-09] MEDS: MORPHINE SULFATE 4 MG/ML SYR IVP PRN ×5 (01:08→19:42)
[2023-08-09 06:26] LABS: BASOPHILS # (AUTO) 0.1 K/uL (0.00-0.22); BASOPHILS % (AUTO) 1.6 % (0.0-2.0); EOSINOPHILS # (AUTO) 0.1 K/uL (0-0.4); EOSINOPHILS % (AUTO) 1.3 % (0.0-4.0); HEMATOCRIT 30.5 % (36-48); HEMOGLOBIN 9.3 g/dL (12.0-16.0); LYMPHOCYTES # (AUTO) 2.5 K/uL (2.5-16.5); LYMPHOCYTES % (AUTO) 36.7 % (20.5-51.1); MEAN CORPUSCULAR HEMOGLOBIN 23 pg (27-31); MEAN CORPUSCULAR HGB CONC 31 g/dL (33-37); MEAN CORPUSCULAR VOLUME 74.9 fL (80-94); MONOCYTES # (AUTO) 0.5 K/uL (0.8-1.0); MONOCYTES % (AUTO) 6.7 % (1.7-9.3); NEUTROPHILS # (AUTO) 3.7 K/uL (1.8-7.7); NEUTROPHILS % (AUTO) 53.7 % (42.2-75.2); PLATELET COUNT (AUTO) 484 K/uL (140-450); RED BLOOD CELL COUNT(AUTO) 4.07 MIL/uL (4.20-5.40); RED CELL DISTRIBUTION WIDTH 19.9 % (11.6-13.7); WHITE BLOOD COUNT (AUTO) 6.8 K/uL (4.8-10.8)
[2023-08-09] MEDS: BLOOD GLUCOSE MONITORING 1 DEV DEV FS SCH ×4 (06:27→20:15)
[2023-08-09] MEDS: INSULIN LISPRO SLIDING SCALE 100 UNITS/ML VIAL SUBQ PRN ×4 (06:36→20:19)
[2023-08-09 06:53] LABS: ALBUMIN 3.4 g/dL (3.4-5.0); ANION GAP 12.6 (8-16); CALCIUM 8.2 mg/dL (8.5-10.1); CARBON DIOXIDE 29.1 mmol/L (21-32); CREATININE 0.7 mg/dL (0.6-1.3); MAGNESIUM 1.7 mg/dL (1.8-2.4); POTASSIUM 4.7 mmol/L (3.5-5.1); TOTAL BILIRUBIN 0.2 mg/dL (0.0-1.0); TOTAL PROTEIN, SERUM 6.9 g/dL (6.4-8.2)
[2023-08-09] MEDS: ENOXAPARIN 40 MG/0.4 ML SYR SUBQ SCH (09:00)
[2023-08-09] MEDS: DEXAMETHASONE 4 MG/ML VIAL IVP SCH (09:00)
[2023-08-09] MEDS: LEVOFLOXACIN 500 MG/D5W PREMIX 100 ML IV SCH (15:14)
[2023-08-09] MEDS ORDERED: MAG SULF 2000 MG/WATER PREMIX 50 ML IV PRN (17:40)
[2023-08-09] MEDS: INSULIN LANTUS 100 UNITS/ML 10 ML VIAL SUBQ SCH (20:20)
[2023-08-09] MEDS: ACETAMINOPHEN 325 MG TAB PO PRN (20:23)
[2023-08-10] VITALS (7 sets, daily range): BP systolic 132–186; BP diastolic 70–97; PULSE 68–85; RESP 16–19; TEMP 97.8–98.8; O2SAT 94–100
[2023-08-10] MEDS: MORPHINE SULFATE 4 MG/ML SYR IVP PRN ×5 (00:03→16:55)
[2023-08-10] MEDS: ALBUTEROL 0.083% 2.5 MG/3 ML NEBU INH PRN ×3 (00:31→13:48)
[2023-08-10] MEDS: IPRATROPIUM 0.02% 0.5 MG/2.5 ML NEBU INH SCH ×3 (00:32→13:48)
[2023-08-10] MEDS: BLOOD GLUCOSE MONITORING 1 DEV DEV FS SCH ×2 (06:22→11:30)
[2023-08-10] MEDS: INSULIN LISPRO SLIDING SCALE 100 UNITS/ML VIAL SUBQ PRN ×2 (06:22→16:09)
[2023-08-10] MEDS: DEXAMETHASONE 4 MG/ML VIAL IVP SCH (08:34)
[2023-08-10] MEDS: ENOXAPARIN 40 MG/0.4 ML SYR SUBQ SCH (08:41)
[2023-08-10] MEDS ORDERED: DEXAMETHASONE 4 MG/ML VIAL IVP SCH (13:25)
[2023-08-10] MEDS ORDERED: ALBUTEROL SULFATE/IPRATROPIU 3 ML SOL IH PRN (13:30)
[2023-08-10] MEDS ORDERED: HYDROcodone/APAP 10/325 MG 1 TAB TAB PO PRN (13:30)
[2023-08-10] MEDS ORDERED: NON-FORMULARY ITEM (Benzonatate 1 CAP) PO PRN (13:30)
[2023-08-10] MEDS ORDERED: BENZONATATE 100 MG CAPLF PO PRN (13:40)
[2023-08-10] MEDS ORDERED: PRED20TA5 PO (15:49)
[2023-08-10] MEDS ORDERED: LEVO-481 PO (15:49)
[2023-08-10] MEDS: LEVOFLOXACIN 500 MG/D5W PREMIX 100 ML IV SCH (16:07)
[2023-08-10] MEDS ORDERED: GABAPENTIN 300 MG CAP PO SCH (17:00)
[2023-08-10] MEDS ORDERED: ALBUTEROL SULFATE/IPRATROPIU 3 ML SOL IH SCH (19:00)
[2023-08-10] MEDS ORDERED: BUDESONIDE 0.5 MG/2 ML NEBU INH SCH (19:30)
[2023-08-10] MEDS ORDERED: FAMOTIDINE 20 MG/2 ML VIAL IV SCH (21:00)
[2023-08-10] MEDS ORDERED: INSULIN GLARGINE HUM REC ANLOG 18 UNIT SUBQ SCH (21:00)
[2023-08-10] MEDS ORDERED: metFORMIN 500 MG TAB PO SCH (21:00)
[2023-08-11] MEDS ORDERED: ASPIRIN 81 MG TAB.CHEW PO SCH (09:00)
[2023-08-11] MEDS ORDERED: APIXABAN 2.5 MG TAB PO SCH (09:00)
[2023-08-11] MEDS ORDERED: SERTRALINE 50 MG TAB PO SCH (09:00)
[2023-08-11] MEDS ORDERED: LORazepam 1 MG TAB PO SCH (09:00)
[2023-08-11] MEDS ORDERED: MONTELUKAST SODIUM 10 MG TAB PO SCH (09:00)
== END 2023-08-10 18:01 | disposition home or self-care (01) | DRG 189 ==
LOC: MED 09:42 → MTU 14:18 → MED 14:18
PROVIDERS: ADMIT Hospitalist; ATTEND Hospitalist
DX: J96.21 Acute and chronic respiratory failure with hypoxia (principal); E43 Unspecified severe protein-calorie malnutrition; J44.1 Chronic obstructive pulmonary disease with (acute) exacerbation; I25.10 Atherosclerotic heart disease of native coronary artery without angina pectoris; E11.51 Type 2 diabetes mellitus with diabetic peripheral angiopathy without gangrene; J43.9 Emphysema, unspecified; F32.A Depression, unspecified; F41.9 Anxiety disorder, unspecified; K21.9 Gastro-esophageal reflux disease without esophagitis; Z85.118 Personal history of other malignant neoplasm of bronchus and lung; Z79.4 Long term (current) use of insulin; Z86.718 Personal history of other venous thrombosis and embolism; Z79.01 Long term (current) use of anticoagulants; Z88.1 Allergy status to other antibiotic agents; Z88.0 Allergy status to penicillin; Z88.8 Allergy status to other drugs, medicaments and biological substances; Z79.899 Other long term (current) drug therapy; Z90.49 Acquired absence of other specified parts of digestive tract; Z83.3 Family history of diabetes mellitus; Z83.49 Family history of other endocrine, nutritional and metabolic diseases; Z68.22 Body mass index [BMI] 22.0-22.9, adult; Z88.2 Allergy status to sulfonamides
CPT/HCPCS: 36415; 71045; 71275; 80053; 82948; 83735; 83880; 84484; 85025; 87081; 93005; 94010; 94640; 96374; 99285; J1100; J1650; J1815; J1956; J2270; J3475; J7613; J7644; Q9967

== ENCOUNTER 2023-08-14 12:32 | Emergency (ER) | payer OTHER ==
[~2023-08-14] VITALS: Ht 157.5 cm; Wt 53.1 kg
[~2023-08-14 12:32] MED LIST changes: -AZIT250T3 PO; -DOXY-690 PO; +LEVO-481 PO
[2023-08-14 13:02] VITALS: BP 146/76; PULSE 86; RESP 20; TEMP 97.9; O2SAT 97
[2023-08-14 13:50] LABS: BASOPHILS # (AUTO) 0.1 K/uL (0.00-0.22); BASOPHILS % (AUTO) 0.6 % (0.0-2.0); EOSINOPHILS % (AUTO) 0.3 % (0.0-4.0); HEMOGLOBIN 9.9 g/dL (12.0-16.0); LYMPHOCYTES # (AUTO) 1.6 K/uL (2.5-16.5); MEAN CORPUSCULAR HEMOGLOBIN 23 pg (27-31); MEAN CORPUSCULAR HGB CONC 30 g/dL (33-37); MEAN CORPUSCULAR VOLUME 75.7 fL (80-94); MONOCYTES # (AUTO) 0.7 K/uL (0.8-1.0); MONOCYTES % (AUTO) 4.9 % (1.7-9.3); NEUTROPHILS % (AUTO) 83.2 % (42.2-75.2); PLATELET COUNT (AUTO) 395 K/uL (140-450); RED BLOOD CELL COUNT(AUTO) 4.36 MIL/uL (4.20-5.40); RED CELL DISTRIBUTION WIDTH 20.5 % (11.6-13.7); WHITE BLOOD COUNT (AUTO) 14.4 K/uL (4.8-10.8)
[2023-08-14 14:11] LABS: ALBUMIN 3.4 g/dL (3.4-5.0); ANION GAP 10.5 (8-16); CALCIUM 8.2 mg/dL (8.5-10.1); CARBON DIOXIDE 29.3 mmol/L (21-32); CREATININE 0.7 mg/dL (0.6-1.3); POTASSIUM 4.8 mmol/L (3.5-5.1); TOTAL BILIRUBIN 0.3 mg/dL (0.0-1.0); TOTAL PROTEIN, SERUM 6.6 g/dL (6.4-8.2)
[2023-08-14] MEDS ORDERED: NACL 0.9% 1,000 ML IV ONE ×2 (14:20→15:35)
[2023-08-14] MEDS ORDERED: FAMOTIDINE 20 MG/2 ML VIAL IVP ONE ×2 (14:20→15:35)
[2023-08-14] MEDS ORDERED: MORPHINE SULFATE 4 MG/ML SYR IVP ONE ×4 (14:20→19:05)
[2023-08-14] MEDS ORDERED: ONDANSETRON 4 MG/2 ML VIAL IVP ONE ×3 (14:20→16:30)
[2023-08-14] MEDS ORDERED: ALBUTEROL SULFATE/IPRATROPIU 3 ML SOL IH ONE (19:05)
[2023-08-14 19:41] VITALS: PULSE 104; RESP 22; O2SAT 93
[2023-08-14 19:54] LABS: APPEARANCE,URINE CLEAR (CLEAR); BILIRUBIN,URINE NEGATIVE (NEGATIVE); BLOOD, URINE NEGATIVE (NEGATIVE); COLOR,URINE YELLOW (YELLOW); LEUKOCYTE ESTERASE ,URINE NEGATIVE (NEGATIVE); NITRITE, URINE NEGATIVE (NEGATIVE); PROTEIN,URINE NEGATIVE (NEGATIVE); UGLUCOSE 3+ (NEGATIVE); UROBILINOGEN,URINE 0.2 EU/dL (0.2 - 1)
[2023-08-14 20:08] LABS: AMPHETAMINE, URINE NEGATIVE ng/ml (NEG <=1000); BARBITURATE, URINE NEGATIVE ng/ml (NEG <=200); BENZODIAZEPINE, URINE NEGATIVE ng/mL (NEG <=200); CANNABINOID, URINE NEGATIVE ng/mL (NEG <=50); COCAINE, URINE NEGATIVE ng/mL (NEG <=300); OPIATE, URINE POSITIVE ng/mL (NEG <=2000); PHENCYCLIDINE SCREEN,URINE NEGATIVE ng/mL (NEG <=25)
[2023-08-14] MEDS ORDERED: LOPE1TAB14 PO (21:09)
[2023-08-14] MEDS ORDERED: CIPR500T4 PO (21:09)
[2023-08-14] MEDS ORDERED: ACET-10509 PO (21:09)
[2023-08-14] MEDS ORDERED: ONDA-188 PO (21:11)
[2023-08-14 21:30] VITALS: BP 135/85; PULSE 88; RESP 22; TEMP 98.6; O2SAT 98
== END 2023-08-14 21:30 | disposition home or self-care (01) ==
LOC: MED 12:32
DX: S32.040A Wedge compression fracture of fourth lumbar vertebra, initial encounter for closed fracture (principal); S32.010A Wedge compression fracture of first lumbar vertebra, initial encounter for closed fracture; A08.4 Viral intestinal infection, unspecified; N28.1 Cyst of kidney, acquired; D35.02 Benign neoplasm of left adrenal gland; J45.909 Unspecified asthma, uncomplicated; I11.9 Hypertensive heart disease without heart failure; J44.9 Chronic obstructive pulmonary disease, unspecified; K21.9 Gastro-esophageal reflux disease without esophagitis; E11.9 Type 2 diabetes mellitus without complications; Z79.4 Long term (current) use of insulin; Z79.899 Other long term (current) drug therapy; Z88.0 Allergy status to penicillin; Z88.8 Allergy status to other drugs, medicaments and biological substances; X58.XXXA Exposure to other specified factors, initial encounter; Y93.89 Activity, other specified; Y92.89 Other specified places as the place of occurrence of the external cause; Y99.8 Other external cause status
CPT/HCPCS: 36415; 74174; 74176; 80053; 80305; 81003; 83690; 85025; 94640; 94760; 96361; 96374; 96375; 96376; 99285; J2270; J2405; J3490; J7030

== ENCOUNTER 2023-12-26 10:47 | Inpatient (IN) | payer OTHER ==
[2023-12-26] VITALS (8 sets, daily range): BP systolic 99–173; BP diastolic 59–90; PULSE 77–100; RESP 19–24; TEMP 96.9–98.2; O2SAT 94–99
[~2023-12-26] VITALS: Ht 157.5 cm; Wt 56.3 kg
[~2023-12-26 10:47] MED LIST changes: +ACET-10509 PO; +ACET-9534 PO; +ALBU-71 NEB; -ASPI-1822 PO; +ASPI-1856 PO; +FAMO40TA12 PO; +FLONAS NS; -GABA300C PO; +GABA300C55 PO; -HYDR-5191 PO; +INSU100I32 SUBQ; +LANTUS SUBQ; -LEVO-481 PO; -LORA-476 PO; -PRED20TA5 PO; +PRED20TA6 PO; -PRON INH; +SERT-164 PO; -SERT50TA PO
[2023-12-26] MEDS: IPRATROPIUM 0.02% 0.5 MG/2.5 ML NEBU INH ONE ×2 (11:32→14:06)
[2023-12-26] MEDS: ALBUTEROL 0.083% 2.5 MG/3 ML NEBU INH ONE ×2 (11:32→14:03)
[2023-12-26] MEDS: HYDROcodone/APAP 5/325 MG 1 TAB TAB PO ONE (12:02)
[2023-12-26] MEDS: predniSONE 20 MG TAB PO ONE (12:02)
[2023-12-26 12:06] LABS: LACTIC ACID 1.8 mmol/L (0.4-2.0)
[2023-12-26 12:09] LABS: ANION GAP 15.2 (8-16); CALCIUM 8.8 mg/dL (8.5-10.1); CARBON DIOXIDE 25.9 mmol/L (21-32); CREATININE 0.8 mg/dL (0.6-1.3); POTASSIUM 5.1 mmol/L (3.5-5.1)
[2023-12-26 12:10] LABS: BASOPHILS % (AUTO) 0.6 % (0.0-2.0); HEMATOCRIT 32.5 % (36-48); HEMOGLOBIN 9.8 g/dL (12.0-16.0); LYMPHOCYTES # (AUTO) 0.9 K/uL (2.5-16.5); LYMPHOCYTES % (AUTO) 10.8 % (20.5-51.1); MEAN CORPUSCULAR HEMOGLOBIN 22 pg (27-31); MEAN CORPUSCULAR HGB CONC 30 g/dL (33-37); MEAN CORPUSCULAR VOLUME 73.3 fL (80-94); MONOCYTES # (AUTO) 0.2 K/uL (0.8-1.0); MONOCYTES % (AUTO) 2.9 % (1.7-9.3); NEUTROPHILS # (AUTO) 7.1 K/uL (1.8-7.7); NEUTROPHILS % (AUTO) 85.7 % (42.2-75.2); PLATELET COUNT (AUTO) 310 K/uL (140-450); RED BLOOD CELL COUNT(AUTO) 4.44 MIL/uL (4.20-5.40); WHITE BLOOD COUNT (AUTO) 8.3 K/uL (4.8-10.8)
[2023-12-26 12:24] LABS: FLU A ANTIGEN negative (NEGATIVE); FLU B ANTIGEN negative (NEGATIVE)
[2023-12-26 12:25] LABS: RSV NEGATIVE (NEGATIVE)
[2023-12-26] MEDS: INSULIN REGULAR, HUMAN 100 UNIT/ML VIAL SUBQ ONE (12:52)
[2023-12-26] MEDS ORDERED: cefTRIAXone 1,000 MG VIAL ONE (12:54)
[2023-12-26] MEDS ORDERED: AZITHROMYCIN 500 MG INJ VIAL IV ONE (12:54)
[2023-12-26] MEDS: AZITHROMYCIN 500 MG in DEXTROSE 5% 250 ML IV ONE (13:11)
[2023-12-26] MEDS: FUROSEMIDE 40 MG/4 ML VIAL IVP ONE (13:12)
[2023-12-26] MEDS: KETOROLAC 30 MG/ML VIAL IVP ONE (13:14)
[2023-12-26] MEDS ORDERED: ONDANSETRON 4 MG/2 ML VIAL IVP PRN (13:40)
[2023-12-26] MEDS ORDERED: ACETAMINOPHEN 325 MG TAB PO PRN (13:40)
[2023-12-26] MEDS ORDERED: ALBUTEROL 0.083% 2.5 MG/3 ML NEBU INH PRN (13:40)
[2023-12-26] MEDS ORDERED: LORazepam 2 MG/ML VIAL IVP PRN (13:40)
[2023-12-26] MEDS ORDERED: ALBUTEROL SULFATE/IPRATROPIU 3 ML SOL IH PRN (13:40)
[2023-12-26] MEDS ORDERED: MORPHINE SULFATE 2 MG/ML SYR ONE (15:13)
[2023-12-26] MEDS: MORPHINE SULFATE 2 MG/ML SYR IVP PRN (15:54)
[2023-12-26] MEDS: INSULIN LISPRO SLIDING SCALE 100 UNITS/ML VIAL SUBQ PRN (16:14)
[2023-12-26] MEDS: methylPREDNISolone SS 125 MG/2 ML VIAL IVP SCH (18:23)
[2023-12-26] MEDS: ACETYLCYSTEINE 10% (100 MG/ML) 100 MG/ML VIAL INH SCH (19:00)
[2023-12-26] MEDS: ALBUTEROL SULFATE/IPRATROPIU 3 ML SOL IH SCH (20:22)
[2023-12-26] MEDS ORDERED: DEXTROSE 50% 50 ML SYR IVP PRN (21:30)
[2023-12-26] MEDS ORDERED: BENZONATATE 100 MG CAPLF PO PRN (21:30)
[2023-12-26] MEDS: BLOOD GLUCOSE MONITORING 1 DEV DEV FS SCH (21:57)
[2023-12-26] MEDS: INSULIN LANTUS 100 UNITS/ML 10 ML VIAL SUBQ SCH (22:21)
[2023-12-27] VITALS (13 sets, daily range): BP systolic 109–144; BP diastolic 48–84; PULSE 64–87; RESP 17–24; TEMP 96.5–98.7; O2SAT 95–100
[2023-12-27] MEDS: HYDROcodone/APAP 5/325 MG 1 TAB TAB PO PRN (01:23)
[2023-12-27] MEDS: INSULIN LISPRO 100 UNITS/ML VIAL SUBQ SCH (06:53)
[2023-12-27] MEDS: ZOLPIDEM 5 MG TAB PO SCH (08:22)
[2023-12-27] MEDS: GABAPENTIN 300 MG CAP PO SCH (08:22)
[2023-12-27] MEDS: SERTRALINE 50 MG TAB PO SCH (08:22)
[2023-12-27] MEDS: MONTELUKAST SODIUM 10 MG TAB PO SCH (08:23)
[2023-12-27] MEDS: PANTOPRAZOLE 40 MG TABEC PO SCH (08:23)
[2023-12-27] MEDS: AZITHROMYCIN 500 MG in DEXTROSE 5% 250 ML IV SCH (08:24)
[2023-12-27] MEDS: INSULIN LANTUS 100 UNITS/ML 10 ML VIAL SUBQ SCH (08:28)
[2023-12-27] MEDS: ENOXAPARIN 40 MG/0.4 ML SYR SUBQ SCH (08:29)
[2023-12-27] MEDS ORDERED: APIXABAN 2.5 MG TAB PO SCH (09:00)
[2023-12-27] MEDS ORDERED: INSULIN LANTUS 100 UNITS/ML 10 ML VIAL SUBQ SCH (09:00)
[2023-12-27] MEDS: methylPREDNISolone SS 125 MG/2 ML VIAL IVP SCH (13:21)
[2023-12-27] MEDS: APIXABAN 2.5 MG TAB PO SCH (21:08)
[2023-12-27] MEDS: ACETYLCYSTEINE 10% (100 MG/ML) 100 MG/ML VIAL INH SCH (23:14)
[2023-12-28] VITALS (14 sets, daily range): BP systolic 110–141; BP diastolic 48–78; PULSE 72–94; RESP 19–24; TEMP 97.5–99; O2SAT 94–100
[2023-12-28] MEDS: MEDS-TO-BEDS MC SCH (20:23)
[2023-12-29] VITALS (12 sets, daily range): BP systolic 130–148; BP diastolic 69–77; PULSE 65–93; RESP 17–24; TEMP 97.4–98.5; O2SAT 91–100
== END 2023-12-29 17:00 | disposition home or self-care (01) | DRG 190 ==
LOC: MED 10:47 → MMU 13:38 → MTU 14:29 → OBSVTOIN 12-27 14:50
PROVIDERS: ADMIT Hospitalist; ATTEND Hospitalist
DX: J44.1 Chronic obstructive pulmonary disease with (acute) exacerbation (principal); J96.21 Acute and chronic respiratory failure with hypoxia; E11.65 Type 2 diabetes mellitus with hyperglycemia; Z20.822 Contact with and (suspected) exposure to COVID-19; T38.0X5A Adverse effect of glucocorticoids and synthetic analogues, initial encounter; Y92.89 Other specified places as the place of occurrence of the external cause; Z88.1 Allergy status to other antibiotic agents; Z99.81 Dependence on supplemental oxygen; Z88.0 Allergy status to penicillin; Z88.8 Allergy status to other drugs, medicaments and biological substances; Z79.899 Other long term (current) drug therapy; Z85.118 Personal history of other malignant neoplasm of bronchus and lung; Z82.49 Family history of ischemic heart disease and other diseases of the circulatory system; Z83.3 Family history of diabetes mellitus; Z79.4 Long term (current) use of insulin
CPT/HCPCS: G0378 ×11; 36415; 71045; 80048; 82948; 83605; 83880; 84484; 85025; 87040; 87081; 87420; 93005; 94640; J0456; J0696; J1650; J1815; J1885; J1940; J2270; J2930; J7060; J7512; J7613; J7644

== ENCOUNTER 2024-02-13 17:24 | Inpatient (IN) | payer OTHER ==
[~2024-02-13] VITALS: Ht 160 cm; Wt 56.0 kg
[2024-02-13] VITALS (7 sets, daily range): BP systolic 121–169; BP diastolic 54–66; PULSE 108–122; RESP 24–35; TEMP 98.9; O2SAT 81–97
[2024-02-13] MEDS: ALBUTEROL 0.083% 2.5 MG/3 ML NEBU INH ONE ×3 (17:38→20:31)
[2024-02-13] MEDS: methylPREDNISolone SS 125 MG/2 ML VIAL IVP ONE (17:38)
[2024-02-13] MEDS: IPRATROPIUM 0.02% 0.5 MG/2.5 ML NEBU INH ONE (17:38)
[2024-02-13 17:52] LABS: BASOPHILS % (AUTO) 0.1 % (0.0-2.0); EOSINOPHILS % (AUTO) 0.1 % (0.0-4.0); HEMATOCRIT 31.9 % (36-48); HEMOGLOBIN 9.4 g/dL (12.0-16.0); LYMPHOCYTES # (AUTO) 0.5 K/uL (2.5-16.5); LYMPHOCYTES % (AUTO) 3.4 % (20.5-51.1); MEAN CORPUSCULAR HEMOGLOBIN 22 pg (27-31); MEAN CORPUSCULAR HGB CONC 29 g/dL (33-37); MEAN CORPUSCULAR VOLUME 76.2 fL (80-94); MONOCYTES % (AUTO) 7.2 % (1.7-9.3); NEUTROPHILS # (AUTO) 12.5 K/uL (1.8-7.7); NEUTROPHILS % (AUTO) 89.2 % (42.2-75.2); PLATELET COUNT (AUTO) 392 K/uL (140-450); RED BLOOD CELL COUNT(AUTO) 4.19 MIL/uL (4.20-5.40); RED CELL DISTRIBUTION WIDTH 21.2 % (11.6-13.7); WHITE BLOOD COUNT (AUTO) 14.1 K/uL (4.8-10.8)
[2024-02-13 18:07] LABS: ANION GAP 22.3 (8-16); CALCIUM 9.1 mg/dL (8.5-10.1); CARBON DIOXIDE 21.6 mmol/L (21-32); CREATININE 0.9 mg/dL (0.6-1.3); INR 0.87 (0.8-1.2); PARTIAL THROMBOPLASTIN TIME 30.5 secs (22-35.6); POTASSIUM 4.9 mmol/L (3.5-5.1); PROTHROMBIN TIME 9.2 secs (10.8-13.4)
[2024-02-13] MEDS: MORPHINE SULFATE 4 MG/ML SYR IVP ONE ×2 (18:41→21:59)
[2024-02-13] MEDS: LEVOFLOXACIN 750 MG/D5W PREMIX 150 ML IV ONE (19:30)
[2024-02-13] MEDS ORDERED: BENZONATATE 100 MG CAPLF PO PRN (20:00)
[2024-02-13] MEDS ORDERED: ACETAMINOPHEN 325 MG TAB PO PRN (20:05)
[2024-02-13] MEDS ORDERED: DEXTROSE 50% 50 ML SYR IVP PRN (20:05)
[2024-02-13] MEDS ORDERED: INSULIN LISPRO SLIDING SCALE 100 UNITS/ML VIAL SUBQ PRN (20:05)
[2024-02-13] MEDS ORDERED: HYDROcodone/APAP 5/325 MG 1 TAB TAB PO PRN (20:05)
[2024-02-13] MEDS ORDERED: FLUT1BLS3 IH (21:15)
[2024-02-13] MEDS ORDERED: ALBU0.0912 IH (21:15)
[2024-02-13] MEDS ORDERED: ATRMDI INH (21:15)
[2024-02-13] MEDS ORDERED: SERT50TA PO (21:15)
[2024-02-13] MEDS: MORPHINE SULFATE 2 MG/ML SYR IVP STA (21:26)
[2024-02-13] MEDS ORDERED: WATER STERILE 10 ML MC ONE (21:31)
[2024-02-13] MEDS ORDERED: methylPREDNISolone SS 40 MG/ML VIAL ONE (21:31)
[2024-02-13] MEDS: methylPREDNISolone SS 40 MG in WATER STERILE 1 ML IV SCH (21:36)
[2024-02-13] MEDS: BLOOD GLUCOSE MONITORING 1 DEV DEV FS SCH (21:47)
[2024-02-13] MEDS: APIXABAN 2.5 MG TAB PO SCH (21:54)
[2024-02-13 22:03] LABS: FLU A ANTIGEN negative (NEGATIVE); FLU B ANTIGEN NEGATIVE (NEGATIVE)
[2024-02-13] MEDS: INSULIN REGULAR, HUMAN 100 UNIT/ML VIAL SUBQ STA (22:26)
[2024-02-13] MEDS: INSULIN LANTUS 100 UNITS/ML 10 ML VIAL SUBQ STA (22:28)
[2024-02-14] VITALS (25 sets, daily range): BP systolic 115–141; BP diastolic 56–79; PULSE 75–102; RESP 18–32; TEMP 98–98.2; O2SAT 92–100
[2024-02-14 00:05] LABS: ANION GAP 29.1 (8-16); CALCIUM 9.1 mg/dL (8.5-10.1); CARBON DIOXIDE 13.5 mmol/L (21-32); CREATININE 1.3 mg/dL (0.6-1.3); POTASSIUM 5.6 mmol/L (3.5-5.1)
[2024-02-14] MEDS ORDERED: INSULIN REGULAR, HUMAN 100 UNIT in NACL 0.9% 100 ML IV SCH (00:10)
[2024-02-14] MEDS: NACL 0.9% 1,000 ML IV ONE (00:14)
[2024-02-14] MEDS: IPRATROPIUM 0.02% 0.5 MG/2.5 ML NEBU INH SCH (00:14)
[2024-02-14] MEDS: ALBUTEROL 0.083% 2.5 MG/3 ML NEBU INH SCH (00:14)
[2024-02-14 00:15] LABS: APPEARANCE,URINE CLEAR (CLEAR); BILIRUBIN,URINE NEGATIVE (NEGATIVE); BLOOD, URINE TRACE-I (NEGATIVE); COLOR,URINE YELLOW (YELLOW); LEUKOCYTE ESTERASE ,URINE NEGATIVE (NEGATIVE); NITRITE, URINE NEGATIVE (NEGATIVE); PH,URINE 5.5 (5.0-9.0); PROTEIN,URINE TRACE (NEGATIVE); UGLUCOSE 3+ (NEGATIVE); UROBILINOGEN,URINE 0.2 EU/dL (0.2 - 1)
[2024-02-14 00:18] LABS: BACTERIA,URINE >30 (MANY) /HPF (None Seen); MUCUS,URINE 1+ /LPF (None Seen); SQUAMOUS EPITHELIAL CELL,UR 0-3 (FEW) /LPF (0-3 (FEW)); WBC,URINE 0-5 /HPF (0-5)
[2024-02-14] MEDS: DEXT 5% / NACL 0.45% 1,000 ML IV SCH (01:30)
[2024-02-14] MEDS ORDERED: DEXTROSE 50% 50 ML SYR IVP PRN (01:30)
[2024-02-14] MEDS: NACL 0.9% 1,000 ML IV SCH ×2 (02:12→15:06)
[2024-02-14] MEDS: INSULIN REGULAR, HUMAN 100 UNIT in NACL 0.9% 100 ML IV SCH (02:12)
[2024-02-14] MEDS: BLOOD GLUCOSE MONITORING 1 DEV DEV FS SCH ×2 (02:17→17:11)
[2024-02-14] MEDS: MORPHINE SULFATE 2 MG/ML SYR IVP PRN (02:21)
[2024-02-14 04:15] LABS: BASOPHILS % (AUTO) 0.3 % (0.0-2.0); HEMATOCRIT 26.7 % (36-48); LYMPHOCYTES # (AUTO) 0.4 K/uL (2.5-16.5); LYMPHOCYTES % (AUTO) 4.8 % (20.5-51.1); MEAN CORPUSCULAR HEMOGLOBIN 23 pg (27-31); MEAN CORPUSCULAR HGB CONC 30 g/dL (33-37); MEAN CORPUSCULAR VOLUME 74.5 fL (80-94); MONOCYTES # (AUTO) 0.2 K/uL (0.8-1.0); MONOCYTES % (AUTO) 2.3 % (1.7-9.3); NEUTROPHILS # (AUTO) 7.8 K/uL (1.8-7.7); NEUTROPHILS % (AUTO) 92.6 % (42.2-75.2); PLATELET COUNT (AUTO) 330 K/uL (140-450); RED BLOOD CELL COUNT(AUTO) 3.58 MIL/uL (4.20-5.40); RED CELL DISTRIBUTION WIDTH 21.3 % (11.6-13.7); WHITE BLOOD COUNT (AUTO) 8.5 K/uL (4.8-10.8)
[2024-02-14] MEDS: ALBUTEROL 0.083% 2.5 MG/3 ML NEBU INH PRN (04:21)
[2024-02-14] MEDS: methylPREDNISolone SS 40 MG/ML VIAL ONE (04:52)
[2024-02-14] MEDS: WATER STERILE 10 ML MC ONE (05:07)
[2024-02-14] MEDS: methylPREDNISolone SS 40 MG/ML VIAL IVP SCH (06:03)
[2024-02-14 06:33] LABS: ALBUMIN 2.7 g/dL (3.4-5.0); CALCIUM 8.5 mg/dL (8.5-10.1); CARBON DIOXIDE 19.6 mmol/L (21-32); CREATININE 0.8 mg/dL (0.6-1.3); MAGNESIUM 1.8 mg/dL (1.8-2.4); PHOSPHORUS 1.8 mg/dL (2.5-4.9); POTASSIUM 3.6 mmol/L (3.5-5.1); TOTAL BILIRUBIN 0.2 mg/dL (0.0-1.0); TOTAL PROTEIN, SERUM 6.9 g/dL (6.4-8.2)
[2024-02-14 08:23] LABS: ANION GAP 13.6 (8-16); CALCIUM 8.2 mg/dL (8.5-10.1); CARBON DIOXIDE 23.1 mmol/L (21-32); CREATININE 0.7 mg/dL (0.6-1.3); POTASSIUM 3.7 mmol/L (3.5-5.1)
[2024-02-14] MEDS: FAMOTIDINE 20 MG TAB PO SCH (08:24)
[2024-02-14] MEDS: FLUTICASONE NASAL 50 MCG/ACTUATION 16 GM BTL NS SCH (08:24)
[2024-02-14] MEDS: ASPIRIN 81 MG TAB.CHEW PO SCH (08:25)
[2024-02-14] MEDS: MONTELUKAST SODIUM 10 MG TAB PO SCH (08:25)
[2024-02-14] MEDS: GABAPENTIN 300 MG CAP PO SCH (08:25)
[2024-02-14] MEDS: SERTRALINE 50 MG TAB PO SCH (08:25)
[2024-02-14 08:32] LABS: MAGNESIUM 1.7 mg/dL (1.8-2.4); PHOSPHORUS 2.1 mg/dL (2.5-4.9)
[2024-02-14] MEDS ORDERED: INSULIN LANTUS 100 UNITS/ML 10 ML VIAL SUBQ SCH (09:00)
[2024-02-14 12:39] LABS: ANION GAP 11.7 (8-16); CALCIUM 8.2 mg/dL (8.5-10.1); CARBON DIOXIDE 23.8 mmol/L (21-32); CREATININE 0.6 mg/dL (0.6-1.3); POTASSIUM 3.5 mmol/L (3.5-5.1)
[2024-02-14] MEDS: INSULIN LANTUS 100 UNITS/ML 10 ML VIAL SUBQ ONE ×2 (13:13→20:46)
[2024-02-14] MEDS: INSULIN LISPRO SLIDING SCALE 100 UNITS/ML VIAL SUBQ PRN (17:13)
[2024-02-14] MEDS: MEDS-TO-BEDS MC SCH (20:34)
[2024-02-14] MEDS: INSULIN LANTUS 100 UNITS/ML 10 ML VIAL SUBQ SCH (20:38)
[2024-02-15] VITALS (14 sets, daily range): BP systolic 127–158; BP diastolic 64–85; PULSE 76–94; RESP 18–26; TEMP 97.6–99; O2SAT 28–100
[2024-02-15] MEDS: ALBUTEROL 0.083% 2.5 MG/3 ML NEBU INH STA (19:43)
[2024-02-16] VITALS (15 sets, daily range): BP systolic 136–154; BP diastolic 57–71; PULSE 60–94; RESP 16–22; TEMP 97.2–98.6; O2SAT 4–99
[2024-02-16] MEDS: methylPREDNISolone SS 40 MG/ML VIAL IVP SCH (21:36)
[2024-02-17] VITALS (13 sets, daily range): BP systolic 117–157; BP diastolic 57–75; PULSE 67–84; RESP 16–22; TEMP 96.4–98.4; O2SAT 96–99
[2024-02-17] MEDS: POLYETHYLENE GLYCOL 17 GM/PKT PO SCH (08:26)
[2024-02-17] MEDS: INSULIN LISPRO 100 UNITS/ML VIAL SUBQ SCH (17:07)
[2024-02-18] VITALS (13 sets, daily range): BP systolic 130–165; BP diastolic 60–65; PULSE 62–86; RESP 16–22; TEMP 97–97.9; O2SAT 94–100
[2024-02-18] MEDS: ZOLPIDEM 5 MG TAB PO PRN (01:48)
[2024-02-18] MEDS: hydrALAZINE 25 MG TAB PO PRN (16:36)
[2024-02-18] MEDS: LEVOFLOXACIN 500 MG/D5W PREMIX 100 ML IV SCH (17:08)
[2024-02-18 17:39] LABS: ANION GAP 8.1 (8-16); CALCIUM 8.4 mg/dL (8.5-10.1); CARBON DIOXIDE 34.7 mmol/L (21-32); CREATININE 0.7 mg/dL (0.6-1.3); POTASSIUM 5.8 mmol/L (3.5-5.1)
[2024-02-19 01:16] VITALS: PULSE 83; RESP 19; O2SAT 96
[2024-02-19 04:00] VITALS: BP 137/66; PULSE 76; RESP 19; TEMP 97.1; O2SAT 94
[2024-02-19 06:56] VITALS: PULSE 83; RESP 18; O2SAT 97
[2024-02-19 08:00] VITALS: BP 158/63; PULSE 70; RESP 18; TEMP 97.8; O2SAT 100
[2024-02-19 11:26] VITALS: PULSE 75; RESP 18; O2SAT 92
[2024-02-19] MEDS ORDERED: PRED20TA5 PO (14:16)
[2024-02-19] MEDS ORDERED: PRED10TA5 PO (14:16)
[2024-02-19] MEDS ORDERED: AZIT500T1 PO (14:16)
[2024-02-19] MEDS ORDERED: ATRMDI INH (14:16)
[2024-02-19] MEDS ORDERED: ALBU0.0912 IH (14:16)
[2024-02-19] MEDS ORDERED: FURO-570 PO (14:19)
[2024-02-19 16:17] VITALS: PULSE 74; RESP 18; O2SAT 93
== END 2024-02-19 16:50 | disposition home or self-care (01) | DRG 637 ==
LOC: MED 17:24 → MTU 20:06 → MIC 02-14 00:29 → MTU 02-14 19:00
PROVIDERS: ADMIT Hospitalist; ATTEND Hospitalist
PROC: 5A0935A Assistance with Respiratory Ventilation, Less than 24 Consecutive Hours, High Flow/Velocity Cannula (ICD-10-PCS; 2024-02-13)
PROC: 5A09357 Assistance with Respiratory Ventilation, Less than 24 Consecutive Hours, Continuous Positive Airway Pressure (ICD-10-PCS; principal; 2024-02-14)
PROC: 5A0945A Assistance with Respiratory Ventilation, 24-96 Consecutive Hours, High Flow/Velocity Cannula (ICD-10-PCS; 2024-02-14)
PROC: 5A09357 Assistance with Respiratory Ventilation, Less than 24 Consecutive Hours, Continuous Positive Airway Pressure (ICD-10-PCS; 2024-02-15)
PROC: 5A09357 Assistance with Respiratory Ventilation, Less than 24 Consecutive Hours, Continuous Positive Airway Pressure (ICD-10-PCS; 2024-02-16)
PROC: 5A0945A Assistance with Respiratory Ventilation, 24-96 Consecutive Hours, High Flow/Velocity Cannula (ICD-10-PCS; 2024-02-16)
DX: E11.10 Type 2 diabetes mellitus with ketoacidosis without coma (principal); J96.21 Acute and chronic respiratory failure with hypoxia; J44.1 Chronic obstructive pulmonary disease with (acute) exacerbation; C34.12 Malignant neoplasm of upper lobe, left bronchus or lung; J45.901 Unspecified asthma with (acute) exacerbation; D72.829 Elevated white blood cell count, unspecified; D64.9 Anemia, unspecified; Z20.822 Contact with and (suspected) exposure to COVID-19; I10 Essential (primary) hypertension; Z88.1 Allergy status to other antibiotic agents; Z88.0 Allergy status to penicillin; Z88.8 Allergy status to other drugs, medicaments and biological substances; Z79.82 Long term (current) use of aspirin; Z79.899 Other long term (current) drug therapy; Z79.01 Long term (current) use of anticoagulants; Z79.4 Long term (current) use of insulin; Z79.51 Long term (current) use of inhaled steroids; Z79.84 Long term (current) use of oral hypoglycemic drugs; Z86.718 Personal history of other venous thrombosis and embolism
CPT/HCPCS: 36415; 36600; 71045; 80048; 80053; 81001; 82009; 82948; 83735; 83880; 84100; 84484; 85025; 85610; 85730; 87081; 87086; 93005; 94640; 94660; 96365; 96375; 96376; 99291; J1815; J1956; J2270; J2920; J2930; J7613; J7644

== ENCOUNTER 2024-02-21 13:27 | Inpatient (IN) | payer OTHER ==
[2024-02-21] VITALS (14 sets, daily range): BP systolic 128–143; BP diastolic 61–84; PULSE 82–98; RESP 16–22; TEMP 98.6; O2SAT 88–100
[~2024-02-21] VITALS: Ht 157.5 cm; Wt 60.8 kg
[~2024-02-21 13:27] MED LIST changes: +ALBU0.0912 IH; +ATRMDI INH; +AZIT500T1 PO; +FLUT1BLS3 IH; +FURO-570 PO; +PRED10TA5 PO; +PRED20TA5 PO; +SERT50TA PO
[2024-02-21 14:20] LABS: BASOPHILS % (AUTO) 0.4 % (0.0-2.0); EOSINOPHILS # (AUTO) 0.1 K/uL (0-0.4); EOSINOPHILS % (AUTO) 0.4 % (0.0-4.0); HEMATOCRIT 28.2 % (36-48); HEMOGLOBIN 8.6 g/dL (12.0-16.0); LYMPHOCYTES # (AUTO) 1.1 K/uL (2.5-16.5); LYMPHOCYTES % (AUTO) 9.9 % (20.5-51.1); MEAN CORPUSCULAR HEMOGLOBIN 22 pg (27-31); MEAN CORPUSCULAR HGB CONC 30 g/dL (33-37); MEAN CORPUSCULAR VOLUME 73.2 fL (80-94); MONOCYTES # (AUTO) 0.6 K/uL (0.8-1.0); MONOCYTES % (AUTO) 5.6 % (1.7-9.3); NEUTROPHILS # (AUTO) 9.5 K/uL (1.8-7.7); NEUTROPHILS % (AUTO) 83.7 % (42.2-75.2); PLATELET COUNT (AUTO) 475 K/uL (140-450); RED BLOOD CELL COUNT(AUTO) 3.86 MIL/uL (4.20-5.40); RED CELL DISTRIBUTION WIDTH 21.9 % (11.6-13.7); WHITE BLOOD COUNT (AUTO) 11.4 K/uL (4.8-10.8)
[2024-02-21] MEDS: IPRATROPIUM 0.02% 0.5 MG/2.5 ML NEBU INH ONE (14:21)
[2024-02-21] MEDS: ALBUTEROL 0.083% 2.5 MG/3 ML NEBU INH ONE ×2 (14:21→15:39)
[2024-02-21 14:29] LABS: ANION GAP 8.5 (8-16); CALCIUM 8.5 mg/dL (8.5-10.1); CARBON DIOXIDE 36.5 mmol/L (21-32); CREATININE 0.8 mg/dL (0.6-1.3)
[2024-02-21] MEDS: FUROSEMIDE 40 MG/4 ML VIAL IVP ONE (15:32)
[2024-02-21 15:36] LABS: ALBUMIN 2.6 g/dL (3.4-5.0); BILIRUBIN,DIRECT 0.1 mg/dL (0.0-0.3); TOTAL BILIRUBIN 0.3 mg/dL (0.0-1.0); TOTAL PROTEIN, SERUM 5.6 g/dL (6.4-8.2)
[2024-02-21] MEDS: HYDROcodone/APAP 5/325 MG 1 TAB TAB PO ONE (15:37)
[2024-02-21] MEDS ORDERED: VANCOMYCIN 1,000 MG VIAL ONE (15:39)
[2024-02-21] MEDS: VANCOMYCIN 1,000 MG in DEXTROSE 5% 250 ML IV ONE (15:59)
[2024-02-21] MEDS ORDERED: ONDANSETRON 4 MG/2 ML VIAL IVP PRN (16:05)
[2024-02-21] MEDS ORDERED: ACETAMINOPHEN 325 MG TAB PO PRN (16:05)
[2024-02-21 16:19] LABS: LACTIC ACID 1.3 mmol/L (0.4-2.0)
[2024-02-21] MEDS: MORPHINE SULFATE 2 MG/ML SYR IVP PRN (16:49)
[2024-02-21] MEDS ORDERED: FLUT1BLS3 IH (16:57)
[2024-02-21] MEDS ORDERED: APIX5TAB4 PO (16:57)
[2024-02-21] MEDS ORDERED: methylPREDNISolone SS 40 MG in WATER STERILE 1 ML IV SCH (18:00)
[2024-02-21] MEDS: methylPREDNISolone SS 40 MG/ML VIAL IVP SCH (18:21)
[2024-02-21] MEDS: LEVOFLOXACIN 750 MG/D5W PREMIX 150 ML IV ONE (18:22)
[2024-02-21] MEDS: FUROSEMIDE 40 MG/4 ML VIAL IVP SCH (18:24)
[2024-02-21] MEDS: IPRATROPIUM 0.02% 0.5 MG/2.5 ML NEBU INH SCH (19:14)
[2024-02-21] MEDS: ALBUTEROL 0.083% 2.5 MG/3 ML NEBU INH PRN (19:15)
[2024-02-21] MEDS ORDERED: DEXTROSE 50% 50 ML SYR IVP PRN (20:55)
[2024-02-21] MEDS: INSULIN LANTUS 100 UNITS/ML 10 ML VIAL SUBQ SCH (21:00)
[2024-02-21] MEDS: BLOOD GLUCOSE MONITORING 1 DEV DEV FS SCH (21:16)
[2024-02-21] MEDS: INSULIN LISPRO SLIDING SCALE 100 UNITS/ML VIAL SUBQ PRN (21:24)
[2024-02-21] MEDS: INSULIN LANTUS 100 UNITS/ML 10 ML VIAL SUBQ ONE (21:25)
[2024-02-21] MEDS: HYDROcodone/APAP 5/325 MG 1 TAB TAB PO PRN (22:53)
[2024-02-22] VITALS (14 sets, daily range): BP systolic 116–136; BP diastolic 52–73; PULSE 67–98; RESP 17–22; TEMP 94–98.5; O2SAT 77–100
[2024-02-22] MEDS: INSULIN LISPRO 100 UNITS/ML VIAL SUBQ ONE (01:58)
[2024-02-22 07:32] LABS: BASOPHILS % (AUTO) 0.2 % (0.0-2.0); HEMATOCRIT 28.8 % (36-48); HEMOGLOBIN 8.9 g/dL (12.0-16.0); LYMPHOCYTES # (AUTO) 0.4 K/uL (2.5-16.5); LYMPHOCYTES % (AUTO) 3.5 % (20.5-51.1); MEAN CORPUSCULAR HEMOGLOBIN 24 pg (27-31); MEAN CORPUSCULAR HGB CONC 31 g/dL (33-37); MONOCYTES # (AUTO) 0.1 K/uL (0.8-1.0); MONOCYTES % (AUTO) 0.9 % (1.7-9.3); NEUTROPHILS # (AUTO) 10.6 K/uL (1.8-7.7); NEUTROPHILS % (AUTO) 95.4 % (42.2-75.2); PLATELET COUNT (AUTO) 448 K/uL (140-450); RED BLOOD CELL COUNT(AUTO) 3.79 MIL/uL (4.20-5.40); RED CELL DISTRIBUTION WIDTH 21.5 % (11.6-13.7); WHITE BLOOD COUNT (AUTO) 11.1 K/uL (4.8-10.8)
[2024-02-22 07:43] LABS: ANION GAP 11.2 (8-16); CARBON DIOXIDE 33.3 mmol/L (21-32); POTASSIUM 4.5 mmol/L (3.5-5.1)
[2024-02-22 07:44] LABS: CALCIUM 9.4 mg/dL (8.5-10.1); CREATININE 0.8 mg/dL (0.6-1.3)
[2024-02-22] MEDS: MEDS-TO-BEDS MC SCH (09:53)
[2024-02-22] MEDS: MORPHINE SULFATE 4 MG/ML SYR IVP PRN (18:39)
[2024-02-22] MEDS: LEVOFLOXACIN 750 MG/D5W PREMIX 150 ML IV SCH (19:17)
[2024-02-22] MEDS: ALBUTEROL SULFATE/IPRATROPIU 3 ML SOL IH SCH (19:45)
[2024-02-22] MEDS: BUDESONIDE 0.5 MG/2 ML NEBU INH SCH (19:45)
[2024-02-22] MEDS: SIMETHICONE 80 MG TAB.CHEW PO PRN (20:50)
[2024-02-22] MEDS: DOCUSATE SODIUM 100 MG GELCAP PO PRN (20:50)
[2024-02-22] MEDS: FAMOTIDINE 20 MG TAB PO SCH (20:50)
[2024-02-23] VITALS (12 sets, daily range): BP systolic 100–133; BP diastolic 51–74; PULSE 62–97; RESP 16–20; TEMP 97.3–98.1; O2SAT 91–100
[2024-02-23] MEDS: ENOXAPARIN 40 MG/0.4 ML SYR SUBQ SCH (08:15)
[2024-02-23] MEDS: ALBUTEROL SULFATE/IPRATROPIU 3 ML SOL IH SCH (15:00)
[2024-02-23] MEDS ORDERED: MAGNESIUM HYDROXIDE 2400 MG/30 ML UDC PO PRN (15:05)
[2024-02-23] MEDS: DOCUSATE SODIUM 250 MG GELCAP PO SCH (20:29)
[2024-02-24] VITALS (10 sets, daily range): BP systolic 114–143; BP diastolic 53–78; PULSE 69–97; RESP 16–20; TEMP 97.5–98.2; O2SAT 91–100
[2024-02-24 09:12] LABS: BASOPHILS % (AUTO) 0.1 % (0.0-2.0); HEMATOCRIT 29.6 % (36-48); HEMOGLOBIN 9.1 g/dL (12.0-16.0); LYMPHOCYTES # (AUTO) 0.4 K/uL (2.5-16.5); LYMPHOCYTES % (AUTO) 3.1 % (20.5-51.1); MEAN CORPUSCULAR HEMOGLOBIN 23 pg (27-31); MEAN CORPUSCULAR HGB CONC 31 g/dL (33-37); MEAN CORPUSCULAR VOLUME 73.1 fL (80-94); MONOCYTES # (AUTO) 0.5 K/uL (0.8-1.0); NEUTROPHILS # (AUTO) 12.3 K/uL (1.8-7.7); NEUTROPHILS % (AUTO) 92.8 % (42.2-75.2); PLATELET COUNT (AUTO) 524 K/uL (140-450); RED BLOOD CELL COUNT(AUTO) 4.05 MIL/uL (4.20-5.40); RED CELL DISTRIBUTION WIDTH 21.9 % (11.6-13.7); WHITE BLOOD COUNT (AUTO) 13.3 K/uL (4.8-10.8)
[2024-02-24] MEDS ORDERED: PRED10TA5 PO (14:42)
[2024-02-24] MEDS ORDERED: LEVO750T75 PO (14:42)
[2024-02-24] MEDS ORDERED: FURO-570 PO (14:42)
[2024-02-24] MEDS ORDERED: HYDR-5071 PO (15:23)
== END 2024-02-24 16:15 | disposition home or self-care (01) | DRG 602 ==
LOC: MED 13:27 → MTU 16:03
PROVIDERS: ADMIT Hospitalist; ATTEND Hospitalist
DX: L03.116 Cellulitis of left lower limb (principal); J96.21 Acute and chronic respiratory failure with hypoxia; J44.1 Chronic obstructive pulmonary disease with (acute) exacerbation; E11.9 Type 2 diabetes mellitus without complications; I10 Essential (primary) hypertension; Z79.899 Other long term (current) drug therapy
CPT/HCPCS: 36415; 71045; 74018; 80048; 80076; 82948; 83605; 83735; 83880; 84484; 85025; 87040; 93005; 94640; 96365; 96375; 99291; J1650; J1815; J1940; J1956; J2270; J2920; J3370; J7613; J7626; J7644; Q0092

== ENCOUNTER 2024-03-16 14:09 | Inpatient (IN) | payer OTHER ==
[2024-03-16] VITALS (10 sets, daily range): BP systolic 111–121; BP diastolic 39–68; PULSE 89–101; RESP 23–32; TEMP 98.2–99.3; O2SAT 93–100
[~2024-03-16] VITALS: Ht 157.5 cm; Wt 59.9 kg
[~2024-03-16 14:09] MED LIST changes: -AZIT500T1 PO; -FLUT1BLS3 IH; +HYDR-5071 PO; -INSU-1163 SQ; -INSU100S22 SUBQ; +LEVO750T75 PO; -PANT40EC56 PO; -PRED20TA5 PO; -PRED20TA6 PO; +PROM473S4 PO; -SERT-164 PO
[2024-03-16] MEDS ORDERED: ALBUTEROL SULFATE/IPRATROPIU 3 ML SOL IH ONE ×2 (14:26)
[2024-03-16] MEDS: IPRATROPIUM 0.02% 0.5 MG/2.5 ML NEBU INH ONE ×2 (14:35→18:25)
[2024-03-16] MEDS: ALBUTEROL 0.083% 2.5 MG/3 ML NEBU INH ONE ×2 (14:35→18:26)
[2024-03-16] MEDS: methylPREDNISolone SS 125 MG/2 ML VIAL IVP ONE (14:40)
[2024-03-16] MEDS: MORPHINE SULFATE 4 MG/ML SYR IVP ONE (14:45)
[2024-03-16 14:59] LABS: BASOPHILS # (AUTO) 0.1 K/uL (0.00-0.22); BASOPHILS % (AUTO) 0.8 % (0.0-2.0); EOSINOPHILS % (AUTO) 0.1 % (0.0-4.0); HEMATOCRIT 30.8 % (36-48); HEMOGLOBIN 9.5 g/dL (12.0-16.0); LYMPHOCYTES # (AUTO) 1.4 K/uL (2.5-16.5); LYMPHOCYTES % (AUTO) 18.6 % (20.5-51.1); MEAN CORPUSCULAR HEMOGLOBIN 23 pg (27-31); MEAN CORPUSCULAR HGB CONC 31 g/dL (33-37); MEAN CORPUSCULAR VOLUME 75.9 fL (80-94); MONOCYTES # (AUTO) 0.4 K/uL (0.8-1.0); MONOCYTES % (AUTO) 5.6 % (1.7-9.3); NEUTROPHILS # (AUTO) 5.7 K/uL (1.8-7.7); NEUTROPHILS % (AUTO) 74.9 % (42.2-75.2); PLATELET COUNT (AUTO) 509 K/uL (140-450); RED BLOOD CELL COUNT(AUTO) 4.05 MIL/uL (4.20-5.40); RED CELL DISTRIBUTION WIDTH 21.7 % (11.6-13.7); WHITE BLOOD COUNT (AUTO) 7.6 K/uL (4.8-10.8)
[2024-03-16 15:07] LABS: ANION GAP 15.1 (8-16); CALCIUM 8.4 mg/dL (8.5-10.1); CARBON DIOXIDE 27.3 mmol/L (21-32); CREATININE 0.8 mg/dL (0.6-1.3); POTASSIUM 3.4 mmol/L (3.5-5.1)
[2024-03-16 15:12] LABS: MAGNESIUM 1.6 mg/dL (1.8-2.4)
[2024-03-16] MEDS ORDERED: OXYC5TAB4 PO (15:22)
[2024-03-16 15:47] LABS: INR 1.03 (0.8-1.2); PARTIAL THROMBOPLASTIN TIME 25.3 secs (22-35.6); PROTHROMBIN TIME 10.8 secs (10.8-13.4)
[2024-03-16] MEDS: MAG SULF 2000 MG/WATER PREMIX 50 ML IV ONE (16:28)
[2024-03-16] MEDS ORDERED: cefTRIAXone 1,000 MG VIAL ONE (18:24)
[2024-03-16] MEDS ORDERED: ONDANSETRON 4 MG/2 ML VIAL IVP PRN (18:25)
[2024-03-16] MEDS ORDERED: POTASSIUM CHLORIDE 10 MEQ TABER PO PRN (18:25)
[2024-03-16] MEDS ORDERED: MAG SULF 2000 MG/WATER PREMIX 50 ML IV PRN (18:25)
[2024-03-16] MEDS ORDERED: ACETAMINOPHEN 325 MG TAB PO PRN (18:25)
[2024-03-16] MEDS ORDERED: METOCLOPRAMIDE 10 MG/2 ML INJ VIAL IVP PRN (18:25)
[2024-03-16] MEDS ORDERED: MAGNESIUM OXIDE 400 MG TAB PO PRN (18:25)
[2024-03-16] MEDS ORDERED: KCL 20 MEQ IN 100 mL PREMIX 200 ML IV PRN (18:25)
[2024-03-16] MEDS ORDERED: DEXTROSE 50% 50 ML SYR IVP PRN (18:55)
[2024-03-16] MEDS: ALBUTEROL SULFATE/IPRATROPIU 3 ML SOL IH SCH (19:00)
[2024-03-16] MEDS ORDERED: AZITHROMYCIN 500 MG INJ VIAL IV ONE (19:09)
[2024-03-16] MEDS: AZITHROMYCIN 250 MG in DEXTROSE 5% 250 ML IV ONE (19:22)
[2024-03-16] MEDS: BUDESONIDE 0.5 MG/2 ML NEBU INH SCH (20:07)
[2024-03-16] MEDS: HYDROcodone/APAP 5/325 MG 1 TAB TAB PO PRN (20:20)
[2024-03-16] MEDS: BLOOD GLUCOSE MONITORING 1 DEV DEV FS SCH (21:00)
[2024-03-16] MEDS: ALBUTEROL SULFATE/IPRATROPIU 3 ML SOL IH PRN (22:40)
[2024-03-16] MEDS: INSULIN LISPRO 100 UNITS/ML VIAL SUBQ SCH (23:23)
[2024-03-16] MEDS: INSULIN LANTUS 100 UNITS/ML 10 ML VIAL SUBQ SCH (23:26)
[2024-03-16] MEDS: oxyCODONE 5 MG TAB PO PRN (23:26)
[2024-03-16] MEDS: POTASSIUM CHL 40 MEQ/ D5-1/2NS 1,000 ML IV SCH (23:29)
[2024-03-16] MEDS: ZOLPIDEM 5 MG TAB PO PRN (23:35)
[2024-03-16] MEDS: methylPREDNISolone SS 40 MG/ML VIAL IVP SCH (23:36)
[2024-03-17] VITALS (15 sets, daily range): BP systolic 109–126; BP diastolic 41–80; PULSE 76–111; RESP 19–36; TEMP 96.8–98.6; O2SAT 94–100
[2024-03-17] MEDS: NACL 0.45% 1,000 ML IV SCH (01:11)
[2024-03-17 01:22] LABS: CALCIUM 8.2 mg/dL (8.5-10.1); CARBON DIOXIDE 16.7 mmol/L (21-32); CREATININE 1.6 mg/dL (0.6-1.3); POTASSIUM 4.7 mmol/L (3.5-5.1)
[2024-03-17] MEDS: INSULIN REGULAR, HUMAN 100 UNIT/ML VIAL IVP SCH ×2 (01:32→12:17)
[2024-03-17] MEDS: LORazepam 1 MG TAB PO PRN (02:09)
[2024-03-17] MEDS: MORPHINE SULFATE 4 MG/ML SYR IVP PRN (03:38)
[2024-03-17 06:57] LABS: BASOPHILS % (AUTO) 0.1 % (0.0-2.0); HEMATOCRIT 27.4 % (36-48); HEMOGLOBIN 8.4 g/dL (12.0-16.0); LYMPHOCYTES # (AUTO) 0.6 K/uL (2.5-16.5); LYMPHOCYTES % (AUTO) 7.7 % (20.5-51.1); MEAN CORPUSCULAR HEMOGLOBIN 23 pg (27-31); MEAN CORPUSCULAR HGB CONC 31 g/dL (33-37); MEAN CORPUSCULAR VOLUME 75.8 fL (80-94); MONOCYTES # (AUTO) 0.2 K/uL (0.8-1.0); MONOCYTES % (AUTO) 2.6 % (1.7-9.3); NEUTROPHILS # (AUTO) 6.9 K/uL (1.8-7.7); NEUTROPHILS % (AUTO) 89.6 % (42.2-75.2); PLATELET COUNT (AUTO) 477 K/uL (140-450); RED BLOOD CELL COUNT(AUTO) 3.61 MIL/uL (4.20-5.40); RED CELL DISTRIBUTION WIDTH 21.8 % (11.6-13.7); WHITE BLOOD COUNT (AUTO) 7.7 K/uL (4.8-10.8)
[2024-03-17 07:45] LABS: ALBUMIN 3.2 g/dL (3.4-5.0); ANION GAP 20.2 (8-16); CALCIUM 8.5 mg/dL (8.5-10.1); CREATININE 1.3 mg/dL (0.6-1.3); MAGNESIUM 2.2 mg/dL (1.8-2.4); POTASSIUM 5.2 mmol/L (3.5-5.1); TOTAL BILIRUBIN 0.3 mg/dL (0.0-1.0); TOTAL PROTEIN, SERUM 6.4 g/dL (6.4-8.2)
[2024-03-17] MEDS: INSULIN LISPRO 100 UNITS/ML VIAL SUBQ SCH ×2 (08:40→16:29)
[2024-03-17] MEDS: GABAPENTIN 300 MG CAP PO SCH (08:41)
[2024-03-17] MEDS: FUROSEMIDE 40 MG TAB PO SCH (08:42)
[2024-03-17] MEDS: DOCUSATE SODIUM 100 MG GELCAP PO SCH (08:42)
[2024-03-17] MEDS: SERTRALINE 50 MG TAB PO SCH (08:42)
[2024-03-17] MEDS: ECOTRIN 81 MG TABEC PO SCH (08:42)
[2024-03-17] MEDS: MONTELUKAST SODIUM 10 MG TAB PO SCH (08:42)
[2024-03-17] MEDS: APIXABAN 2.5 MG TAB PO SCH (08:44)
[2024-03-17] MEDS ORDERED: INSULIN LANTUS 100 UNITS/ML 10 ML VIAL SUBQ SCH (09:00)
[2024-03-17] MEDS ORDERED: ZOLPIDEM 5 MG TAB PO SCH (09:00)
[2024-03-17] MEDS ORDERED: INSULIN LISPRO SLIDING SCALE 100 UNITS/ML VIAL SUBQ PRN (12:05)
[2024-03-17] MEDS ORDERED: DEXTROSE 50% 50 ML SYR IVP PRN (12:05)
[2024-03-17] MEDS: INSULIN LANTUS 100 UNITS/ML 10 ML VIAL SUBQ SCH ×2 (12:26→21:08)
[2024-03-17] MEDS: INSULIN LISPRO SLIDING SCALE 100 UNITS/ML VIAL SUBQ PRN (12:28)
[2024-03-17] MEDS: LACTATED RINGERS 1,000 ML IV SCH (13:15)
[2024-03-17] MEDS: ALBUTEROL SULFATE/IPRATROPIU 3 ML SOL IH SCH (15:00)
[2024-03-17 15:13] LABS: ANION GAP 16.6 (8-16); CARBON DIOXIDE 24.9 mmol/L (21-32); CREATININE 1.2 mg/dL (0.6-1.3); POTASSIUM 4.5 mmol/L (3.5-5.1)
[2024-03-17] MEDS ORDERED: BLOOD GLUCOSE MONITORING 1 DEV DEV FS SCH (16:30)
[2024-03-17] MEDS: MEDS-TO-BEDS MC SCH (21:13)
[2024-03-18] VITALS (12 sets, daily range): BP systolic 108–134; BP diastolic 62–81; PULSE 72–90; RESP 20–28; TEMP 97.8–98.3; O2SAT 92–100
[2024-03-18 05:30] LABS: BASOPHILS % (AUTO) 0.1 % (0.0-2.0); EOSINOPHILS % (AUTO) 0.1 % (0.0-4.0); HEMATOCRIT 27.5 % (36-48); HEMOGLOBIN 8.3 g/dL (12.0-16.0); LYMPHOCYTES # (AUTO) 0.5 K/uL (2.5-16.5); LYMPHOCYTES % (AUTO) 3.4 % (20.5-51.1); MEAN CORPUSCULAR HEMOGLOBIN 23 pg (27-31); MEAN CORPUSCULAR HGB CONC 30 g/dL (33-37); MEAN CORPUSCULAR VOLUME 74.6 fL (80-94); MONOCYTES # (AUTO) 0.4 K/uL (0.8-1.0); MONOCYTES % (AUTO) 2.7 % (1.7-9.3); NEUTROPHILS # (AUTO) 14.3 K/uL (1.8-7.7); NEUTROPHILS % (AUTO) 93.7 % (42.2-75.2); PLATELET COUNT (AUTO) 465 K/uL (140-450); RED BLOOD CELL COUNT(AUTO) 3.68 MIL/uL (4.20-5.40); WHITE BLOOD COUNT (AUTO) 15.2 K/uL (4.8-10.8)
[2024-03-18 06:30] LABS: ALBUMIN 2.6 g/dL (3.4-5.0); ANION GAP 11.1 (8-16); CALCIUM 8.7 mg/dL (8.5-10.1); CARBON DIOXIDE 30.4 mmol/L (21-32); CREATININE 0.8 mg/dL (0.6-1.3); MAGNESIUM 1.8 mg/dL (1.8-2.4); TOTAL BILIRUBIN 0.2 mg/dL (0.0-1.0); TOTAL PROTEIN, SERUM 5.7 g/dL (6.4-8.2)
[2024-03-18 06:40] LABS: POTASSIUM 5.5 mmol/L (3.5-5.1)
[2024-03-18] MEDS: SODIUM ZIRCONIUM CYCLOSILICATE 10 GM POWD.PACK PO SCH (17:55)
[2024-03-19] VITALS (10 sets, daily range): BP systolic 113–115; BP diastolic 50–72; PULSE 66–90; RESP 14–24; TEMP 97–97.8; O2SAT 94–100
[2024-03-19 06:33] LABS: HEMATOCRIT 27.7 % (36-48); HEMOGLOBIN 8.6 g/dL (12.0-16.0); LYMPHOCYTES # (AUTO) 0.4 K/uL (2.5-16.5); LYMPHOCYTES % (AUTO) 3.1 % (20.5-51.1); MEAN CORPUSCULAR HEMOGLOBIN 23 pg (27-31); MEAN CORPUSCULAR HGB CONC 31 g/dL (33-37); MEAN CORPUSCULAR VOLUME 73.7 fL (80-94); MONOCYTES # (AUTO) 0.5 K/uL (0.8-1.0); MONOCYTES % (AUTO) 3.8 % (1.7-9.3); NEUTROPHILS # (AUTO) 13.1 K/uL (1.8-7.7); NEUTROPHILS % (AUTO) 93.1 % (42.2-75.2); PLATELET COUNT (AUTO) 466 K/uL (140-450); RED BLOOD CELL COUNT(AUTO) 3.77 MIL/uL (4.20-5.40); RED CELL DISTRIBUTION WIDTH 21.1 % (11.6-13.7); WHITE BLOOD COUNT (AUTO) 14.1 K/uL (4.8-10.8)
[2024-03-19 07:01] LABS: ALBUMIN 2.8 g/dL (3.4-5.0); ANION GAP 9.5 (8-16); CALCIUM 8.3 mg/dL (8.5-10.1); CARBON DIOXIDE 32.3 mmol/L (21-32); CREATININE 0.8 mg/dL (0.6-1.3); MAGNESIUM 1.8 mg/dL (1.8-2.4); POTASSIUM 4.8 mmol/L (3.5-5.1); TOTAL BILIRUBIN 0.2 mg/dL (0.0-1.0); TOTAL PROTEIN, SERUM 6.1 g/dL (6.4-8.2)
[2024-03-19] MEDS ORDERED: PRED20TA5 PO (13:27)
[2024-03-19] MEDS ORDERED: [UNRECOGNIZED DRUG - CODE] PO (13:27)
== END 2024-03-19 16:10 | disposition home or self-care (01) | DRG 637 ==
LOC: MED 14:09 → MTU 18:34
PROVIDERS: ADMIT Hospitalist; ATTEND Hospitalist
DX: E11.10 Type 2 diabetes mellitus with ketoacidosis without coma (principal); J96.21 Acute and chronic respiratory failure with hypoxia; N17.0 Acute kidney failure with tubular necrosis; J44.1 Chronic obstructive pulmonary disease with (acute) exacerbation; J84.10 Pulmonary fibrosis, unspecified; E11.9 Type 2 diabetes mellitus without complications; Z79.899 Other long term (current) drug therapy; Z87.891 Personal history of nicotine dependence
CPT/HCPCS: 36415; 71045; 80048; 80053; 82009; 82947; 82948; 83735; 83880; 84100; 84484; 85025; 85610; 85730; 87070; 87081; 87186; 87205; 89220; 93005; 94640; 96374; 99285; J0456; J0696; J1815; J2270; J2919; J2920; J3475; J7613; J7626; J7644; Q0092

== ENCOUNTER 2024-04-27 10:15 | Inpatient (IN) | payer OTHER ==
[2024-04-27] VITALS (15 sets, daily range): BP systolic 99–183; BP diastolic 49–111; PULSE 81–112; RESP 15–39; TEMP 97.8–98.2; O2SAT 89–100
[~2024-04-27] VITALS: Ht 157.5 cm; Wt 58.1 kg
[~2024-04-27 10:15] MED LIST changes: -ACET-10509 PO; -ACET-9534 PO; -BENZ200C4 PO; -HYDR-5071 PO; -LEVO750T75 PO; -METF-1274 PO; -MUC104 NEB; +OXYC5TAB4 PO; +PRED20TA5 PO; -PROM473S4 PO; +[UNRECOGNIZED DRUG - CODE] PO
[2024-04-27] MEDS: ALBUTEROL SULFATE/IPRATROPIU 3 ML SOL IH ONE (10:32)
[2024-04-27] MEDS: IPRATROPIUM 0.02% 0.5 MG/2.5 ML NEBU INH ONE (10:42)
[2024-04-27] MEDS: ALBUTEROL 0.083% 2.5 MG/3 ML NEBU INH ONE (10:43)
[2024-04-27] MEDS: NITROGLYCERIN 0.4 MG TAB SL ONE (10:57)
[2024-04-27] MEDS: methylPREDNISolone SS 125 MG/2 ML VIAL IVP ONE (10:58)
[2024-04-27] MEDS: MORPHINE SULFATE 4 MG/ML SYR IVP ONE ×2 (11:05→14:49)
[2024-04-27] MEDS: MAG SULF 2000 MG/WATER PREMIX 50 ML IV ONE (11:09)
[2024-04-27] MEDS: LEVOFLOXACIN 750 MG/D5W PREMIX 150 ML IV ONE (11:10)
[2024-04-27 12:00] LABS: CALCIUM 8.8 mg/dL (8.5-10.1); CARBON DIOXIDE 17.4 mmol/L (21-32); CREATININE 0.9 mg/dL (0.6-1.3); POTASSIUM 4.4 mmol/L (3.5-5.1)
[2024-04-27 12:02] LABS: ALANINE AMINOTRANSFERASE 17 U/L (12-78); ALBUMIN 3.5 g/dL (3.4-5.0); ALKALINE PHOSPHATASE 97 U/L (50-136); ASPARTATE AMINOTRANSFERASE 35 U/L (15-37); BILIRUBIN,DIRECT 0.1 mg/dL (0.0-0.3); TOTAL BILIRUBIN 0.7 mg/dL (0.0-1.0); TOTAL PROTEIN, SERUM 7.5 g/dL (6.4-8.2)
[2024-04-27 12:10] LABS: LACTIC ACID 3.9 mmol/L (0.4-2.0)
[2024-04-27 12:14] LABS: BASOPHILS # (AUTO) 0.1 K/uL (0.00-0.22); BASOPHILS % (AUTO) 0.6 % (0.0-2.0); HEMATOCRIT 33.5 % (36-48); HEMOGLOBIN 9.4 g/dL (12.0-16.0); LYMPHOCYTES # (AUTO) 0.8 K/uL (2.5-16.5); LYMPHOCYTES % (AUTO) 9.6 % (20.5-51.1); MEAN CORPUSCULAR HEMOGLOBIN 22 pg (27-31); MEAN CORPUSCULAR HGB CONC 28 g/dL (33-37); MEAN CORPUSCULAR VOLUME 78.3 fL (80-94); MONOCYTES # (AUTO) 0.3 K/uL (0.8-1.0); MONOCYTES % (AUTO) 3.2 % (1.7-9.3); NEUTROPHILS # (AUTO) 7.2 K/uL (1.8-7.7); NEUTROPHILS % (AUTO) 86.6 % (42.2-75.2); PLATELET COUNT (AUTO) 394 K/uL (140-450); RED BLOOD CELL COUNT(AUTO) 4.28 MIL/uL (4.20-5.40); RED CELL DISTRIBUTION WIDTH 20.9 % (11.6-13.7); WHITE BLOOD COUNT (AUTO) 8.3 K/uL (4.8-10.8)
[2024-04-27 12:18] LABS: INR 0.93 (0.8-1.2); PARTIAL THROMBOPLASTIN TIME 19.9 secs (22-35.6); PROTHROMBIN TIME 9.8 secs (10.8-13.4)
[2024-04-27] MEDS: NACL 0.9% 1,000 ML IV ONE (12:50)
[2024-04-27] MEDS ORDERED: MORPHINE SULFATE 4 MG/ML SYR IVP ONE (14:05)
[2024-04-27] MEDS: INSULIN REGULAR, HUMAN 100 UNIT in NACL 0.9% 100 ML IV SCH (14:41)
[2024-04-27] MEDS ORDERED: INSULIN REGULAR, HUMAN 100 UNIT in NACL 0.9% 100 ML IV SCH (14:45)
[2024-04-27] MEDS ORDERED: DEXTROSE 50% 50 ML SYR IVP PRN (14:50)
[2024-04-27] MEDS ORDERED: SODIUM BICARBONATE 8.4% 50 MEQ in DEXT 5% / NACL 0.45% 1,000 ML IV SCH (15:00)
[2024-04-27] MEDS: BLOOD GLUCOSE MONITORING 1 DEV DEV FS SCH (15:14)
[2024-04-27] MEDS: DEXT 5% / NACL 0.45% 1,000 ML IV SCH (15:55)
[2024-04-27 16:07] LABS: ANION GAP 30.9 (8-16); CALCIUM 8.4 mg/dL (8.5-10.1); CARBON DIOXIDE 13.7 mmol/L (21-32); CREATININE 1.2 mg/dL (0.6-1.3); POTASSIUM 3.6 mmol/L (3.5-5.1)
[2024-04-27 16:23] LABS: MAGNESIUM 2.1 mg/dL (1.8-2.4); PHOSPHORUS 3.1 mg/dL (2.5-4.9)
[2024-04-27] MEDS: ALBUTEROL SULFATE/IPRATROPIU 3 ML SOL IH SCH (16:57)
[2024-04-27] MEDS: BUDESONIDE 0.5 MG/2 ML NEBU INH SCH (16:57)
[2024-04-27] MEDS: GABAPENTIN 300 MG CAP PO SCH (17:42)
[2024-04-27] MEDS: NACL 0.9% 1,000 ML IV SCH (17:43)
[2024-04-27] MEDS ORDERED: methylPREDNISolone SS 125 MG/2 ML VIAL IVP SCH (18:00)
[2024-04-27] MEDS ORDERED: PROMETH/CODEINE 6.25-10MG/5ML 5 ML UDC PO PRN (18:45)
[2024-04-27] MEDS: MORPHINE SULFATE 4 MG/ML SYR IVP SCH (19:02)
[2024-04-27] MEDS: methylPREDNISolone SS 40 MG/ML VIAL IVP SCH (19:13)
[2024-04-27 20:25] LABS: ANION GAP 19.1 (8-16); CALCIUM 8.1 mg/dL (8.5-10.1); CARBON DIOXIDE 19.4 mmol/L (21-32); CREATININE 1.1 mg/dL (0.6-1.3); POTASSIUM 3.5 mmol/L (3.5-5.1)
[2024-04-27 20:37] LABS: MAGNESIUM 1.8 mg/dL (1.8-2.4); PHOSPHORUS 1.6 mg/dL (2.5-4.9)
[2024-04-27] MEDS: FLUTICASONE NASAL 50 MCG/ACTUATION 16 GM BTL NS SCH (20:43)
[2024-04-27] MEDS: APIXABAN 2.5 MG TAB PO SCH (20:44)
[2024-04-27] MEDS ORDERED: MAG SULF 2000 MG/WATER PREMIX 50 ML IV PRN (22:20)
[2024-04-27] MEDS ORDERED: KCL 20 MEQ IN 100 mL PREMIX 200 ML IV PRN (22:20)
[2024-04-27] MEDS: SODIUM PHOS / POTASSIUM PHOS 1 PKT PDR PO ONE (22:59)
[2024-04-27] MEDS: oxyCODONE 5 MG TAB PO PRN (23:07)
[2024-04-28] VITALS (20 sets, daily range): BP systolic 96–130; BP diastolic 49–72; PULSE 76–105; RESP 14–25; TEMP 96.8–98.6; O2SAT 95–100
[2024-04-28 00:30] LABS: ANION GAP 11.6 (8-16); CALCIUM 7.9 mg/dL (8.5-10.1); CARBON DIOXIDE 25.2 mmol/L (21-32); CREATININE 0.8 mg/dL (0.6-1.3); POTASSIUM 3.8 mmol/L (3.5-5.1)
[2024-04-28 00:33] LABS: MAGNESIUM 1.8 mg/dL (1.8-2.4); PHOSPHORUS 2.4 mg/dL (2.5-4.9)
[2024-04-28 06:21] LABS: ANION GAP 12.6 (8-16); CALCIUM 7.8 mg/dL (8.5-10.1); CARBON DIOXIDE 24.9 mmol/L (21-32); CREATININE 0.6 mg/dL (0.6-1.3); POTASSIUM 3.5 mmol/L (3.5-5.1)
[2024-04-28 06:42] LABS: BASOPHILS % (AUTO) 0.1 % (0.0-2.0); HEMATOCRIT 27.5 % (36-48); LYMPHOCYTES # (AUTO) 0.6 K/uL (2.5-16.5); LYMPHOCYTES % (AUTO) 3.7 % (20.5-51.1); MEAN CORPUSCULAR HEMOGLOBIN 22 pg (27-31); MEAN CORPUSCULAR HGB CONC 29 g/dL (33-37); MEAN CORPUSCULAR VOLUME 75.9 fL (80-94); MONOCYTES # (AUTO) 0.2 K/uL (0.8-1.0); MONOCYTES % (AUTO) 1.6 % (1.7-9.3); NEUTROPHILS # (AUTO) 14.7 K/uL (1.8-7.7); NEUTROPHILS % (AUTO) 94.6 % (42.2-75.2); PLATELET COUNT (AUTO) 335 K/uL (140-450); RED BLOOD CELL COUNT(AUTO) 3.62 MIL/uL (4.20-5.40); RED CELL DISTRIBUTION WIDTH 19.9 % (11.6-13.7); WHITE BLOOD COUNT (AUTO) 15.5 K/uL (4.8-10.8)
[2024-04-28 06:56] LABS: MAGNESIUM 1.9 mg/dL (1.8-2.4); PHOSPHORUS 2.6 mg/dL (2.5-4.9)
[2024-04-28] MEDS: BLOOD GLUCOSE MONITORING 1 DEV DEV FS SCH (07:57)
[2024-04-28] MEDS ORDERED: INSULIN LANTUS 100 UNITS/ML 10 ML VIAL SUBQ ONE (08:00)
[2024-04-28] MEDS: INSULIN LANTUS 100 UNITS/ML 10 ML VIAL SUBQ SCH (08:01)
[2024-04-28] MEDS ORDERED: predniSONE 10 MG TAB PO SCH (09:00)
[2024-04-28] MEDS: MONTELUKAST SODIUM 10 MG TAB PO SCH (09:15)
[2024-04-28] MEDS: FUROSEMIDE 40 MG TAB PO SCH (09:16)
[2024-04-28] MEDS: ECOTRIN 81 MG TABEC PO SCH (09:16)
[2024-04-28] MEDS: SERTRALINE 50 MG TAB PO SCH (09:16)
[2024-04-28] MEDS: LEVOFLOXACIN 500 MG/D5W PREMIX 100 ML IV SCH (09:20)
[2024-04-28] MEDS: INSULIN LISPRO SLIDING SCALE 100 UNITS/ML VIAL SUBQ PRN (11:36)
[2024-04-28] MEDS ORDERED: oxyCODONE 10 MG TABER PO SCH (12:40)
[2024-04-28] MEDS ORDERED: oxyCODONE 5 MG TAB PO PRN (12:55)
[2024-04-28] MEDS: oxyCODONE 5 MG TAB PO PRN (13:38)
[2024-04-28] MEDS: MAG SULF 2000 MG/WATER PREMIX 50 ML IV SCH (16:28)
[2024-04-28] MEDS: POTASSIUM CHLORIDE 10 MEQ TABER PO SCH (16:28)
[2024-04-28] MEDS ORDERED: PHENYLEPHRINE 20 MG in NACL 0.9% 250 ML IV PRN (20:30)
[2024-04-28] MEDS: methylPREDNISolone SS 40 MG/ML VIAL IVP SCH (21:58)
[2024-04-28] MEDS: ZOLPIDEM 5 MG TAB PO SCH (22:02)
[2024-04-29] VITALS (14 sets, daily range): BP systolic 103–124; BP diastolic 45–60; PULSE 68–110; RESP 14–25; TEMP 97.1–99.2; O2SAT 95–100
[2024-04-29 06:10] LABS: BASOPHILS % (AUTO) 0.1 % (0.0-2.0); HEMATOCRIT 26.6 % (36-48); HEMOGLOBIN 7.8 g/dL (12.0-16.0); LYMPHOCYTES # (AUTO) 0.6 K/uL (2.5-16.5); LYMPHOCYTES % (AUTO) 3.7 % (20.5-51.1); MEAN CORPUSCULAR HEMOGLOBIN 22 pg (27-31); MEAN CORPUSCULAR HGB CONC 29 g/dL (33-37); MONOCYTES # (AUTO) 0.4 K/uL (0.8-1.0); MONOCYTES % (AUTO) 2.2 % (1.7-9.3); NEUTROPHILS # (AUTO) 16.5 K/uL (1.8-7.7); PLATELET COUNT (AUTO) 345 K/uL (140-450); RED BLOOD CELL COUNT(AUTO) 3.55 MIL/uL (4.20-5.40); RED CELL DISTRIBUTION WIDTH 20.2 % (11.6-13.7); WHITE BLOOD COUNT (AUTO) 17.5 K/uL (4.8-10.8)
[2024-04-29 06:17] LABS: ANION GAP 10.4 (8-16); CALCIUM 7.7 mg/dL (8.5-10.1); CARBON DIOXIDE 27.8 mmol/L (21-32); CREATININE 0.6 mg/dL (0.6-1.3); POTASSIUM 5.2 mmol/L (3.5-5.1)
[2024-04-29 06:23] LABS: MAGNESIUM 2.1 mg/dL (1.8-2.4); PHOSPHORUS 2.7 mg/dL (2.5-4.9)
[2024-04-29] MEDS: methylPREDNISolone SS 40 MG/ML VIAL IVP SCH (21:17)
[2024-04-30] VITALS (12 sets, daily range): BP systolic 108–132; BP diastolic 44–63; PULSE 56–100; RESP 16–21; TEMP 97.4–99.1; O2SAT 88–100
[2024-04-30 05:36] LABS: BASOPHILS % (AUTO) 0.1 % (0.0-2.0); HEMATOCRIT 26.5 % (36-48); HEMOGLOBIN 7.9 g/dL (12.0-16.0); LYMPHOCYTES # (AUTO) 0.8 K/uL (2.5-16.5); LYMPHOCYTES % (AUTO) 7.9 % (20.5-51.1); MEAN CORPUSCULAR HEMOGLOBIN 22 pg (27-31); MEAN CORPUSCULAR HGB CONC 30 g/dL (33-37); MEAN CORPUSCULAR VOLUME 74.1 fL (80-94); MONOCYTES # (AUTO) 0.4 K/uL (0.8-1.0); MONOCYTES % (AUTO) 3.8 % (1.7-9.3); NEUTROPHILS # (AUTO) 8.9 K/uL (1.8-7.7); NEUTROPHILS % (AUTO) 88.2 % (42.2-75.2); PLATELET COUNT (AUTO) 323 K/uL (140-450); RED BLOOD CELL COUNT(AUTO) 3.57 MIL/uL (4.20-5.40); RED CELL DISTRIBUTION WIDTH 20.3 % (11.6-13.7)
[2024-04-30 06:33] LABS: ANION GAP 11.4 (8-16); CALCIUM 8.6 mg/dL (8.5-10.1); CARBON DIOXIDE 27.9 mmol/L (21-32); CREATININE 0.7 mg/dL (0.6-1.3); POTASSIUM 5.3 mmol/L (3.5-5.1)
[2024-04-30 07:07] LABS: MAGNESIUM 1.7 mg/dL (1.8-2.4); PHOSPHORUS 4.6 mg/dL (2.5-4.9)
[2024-04-30 09:26] LABS: BLOOD GAS PCO2 36.1 mmHg (35-45); BLOOD GAS PH 7.471 (7.35-7.45)
[2024-04-30 09:27] LABS: BLOOD GAS BASE EXCESS 2.1 mmol/L (-2.0-2.0); BLOOD GAS HCO3 25.7 mmol/L (22-26); BLOOD GAS O2 SAT% 92.1 % (92.0-98.5); BLOOD GAS PO2 62.4 mmHg (75-100)
[2024-04-30 09:29] LABS: FRACTIONATED INSPIRED OXYGEN 0.21 % (0.21-100.00)
[2024-04-30] MEDS: MAG SULF 2000 MG/WATER PREMIX 50 ML IV SCH (12:39)
[2024-04-30] MEDS: ALBUTEROL SULFATE/IPRATROPIU 3 ML SOL IH PRN (13:56)
[2024-04-30] MEDS: methylPREDNISolone SS 40 MG/ML VIAL IVP SCH (21:23)
[2024-05-01] VITALS (14 sets, daily range): BP systolic 104–130; BP diastolic 42–71; PULSE 18–100; RESP 16–20; TEMP 97–98.2; O2SAT 67–100
[2024-05-01 05:44] LABS: EOSINOPHILS % (AUTO) 0.1 % (0.0-4.0); HEMATOCRIT 28.2 % (36-48); HEMOGLOBIN 8.4 g/dL (12.0-16.0); LYMPHOCYTES # (AUTO) 1.5 K/uL (2.5-16.5); LYMPHOCYTES % (AUTO) 19.7 % (20.5-51.1); MEAN CORPUSCULAR HEMOGLOBIN 22 pg (27-31); MEAN CORPUSCULAR HGB CONC 30 g/dL (33-37); MEAN CORPUSCULAR VOLUME 73.8 fL (80-94); MONOCYTES # (AUTO) 0.5 K/uL (0.8-1.0); NEUTROPHILS # (AUTO) 5.7 K/uL (1.8-7.7); NEUTROPHILS % (AUTO) 73.2 % (42.2-75.2); PLATELET COUNT (AUTO) 337 K/uL (140-450); RED BLOOD CELL COUNT(AUTO) 3.83 MIL/uL (4.20-5.40); RED CELL DISTRIBUTION WIDTH 20.5 % (11.6-13.7); WHITE BLOOD COUNT (AUTO) 7.7 K/uL (4.8-10.8)
[2024-05-01 06:11] LABS: ANION GAP 7.6 (8-16); CALCIUM 8.5 mg/dL (8.5-10.1); CARBON DIOXIDE 34.3 mmol/L (21-32); CREATININE 0.7 mg/dL (0.6-1.3); POTASSIUM 4.9 mmol/L (3.5-5.1)
[2024-05-01 06:53] LABS: MAGNESIUM 1.9 mg/dL (1.8-2.4); PHOSPHORUS 5.3 mg/dL (2.5-4.9)
[2024-05-02] VITALS (9 sets, daily range): BP systolic 111–131; BP diastolic 55–83; PULSE 59–114; RESP 16–20; TEMP 96.8–97.8; O2SAT 90–100
[2024-05-02 06:18] LABS: BASOPHILS % (AUTO) 0.1 % (0.0-2.0); EOSINOPHILS % (AUTO) 0.3 % (0.0-4.0); HEMATOCRIT 26.9 % (36-48); HEMOGLOBIN 8.1 g/dL (12.0-16.0); LYMPHOCYTES # (AUTO) 1.5 K/uL (2.5-16.5); LYMPHOCYTES % (AUTO) 19.8 % (20.5-51.1); MEAN CORPUSCULAR HEMOGLOBIN 23 pg (27-31); MEAN CORPUSCULAR HGB CONC 30 g/dL (33-37); MEAN CORPUSCULAR VOLUME 74.3 fL (80-94); MONOCYTES # (AUTO) 0.5 K/uL (0.8-1.0); MONOCYTES % (AUTO) 6.9 % (1.7-9.3); NEUTROPHILS # (AUTO) 5.4 K/uL (1.8-7.7); NEUTROPHILS % (AUTO) 72.9 % (42.2-75.2); PLATELET COUNT (AUTO) 335 K/uL (140-450); RED BLOOD CELL COUNT(AUTO) 3.62 MIL/uL (4.20-5.40); RED CELL DISTRIBUTION WIDTH 20.8 % (11.6-13.7); WHITE BLOOD COUNT (AUTO) 7.5 K/uL (4.8-10.8)
[2024-05-02 06:35] LABS: ANION GAP 6.7 (8-16); CALCIUM 8.8 mg/dL (8.5-10.1); CARBON DIOXIDE 38.1 mmol/L (21-32); CREATININE 0.8 mg/dL (0.6-1.3); POTASSIUM 4.8 mmol/L (3.5-5.1)
[2024-05-02 07:15] LABS: MAGNESIUM 1.9 mg/dL (1.8-2.4); PHOSPHORUS 6.1 mg/dL (2.5-4.9)
[2024-05-02] MEDS ORDERED: ALBU0.0912 IH (12:13)
[2024-05-02] MEDS ORDERED: OXYC5TAB4 PO (12:13)
[2024-05-02] MEDS ORDERED: FLUT1BLS15 IH (12:13)
[2024-05-02] MEDS ORDERED: PRED20TA5 PO (12:13)
== END 2024-05-02 16:10 | disposition home or self-care (01) | DRG 871 ==
LOC: MED 10:15 → MTU 14:39 → MIC 14:54 → MTU 04-28 20:40
PROVIDERS: ADMIT Hospitalist; ATTEND Hospitalist
PROC: 5A09357 Assistance with Respiratory Ventilation, Less than 24 Consecutive Hours, Continuous Positive Airway Pressure (ICD-10-PCS; principal; 2024-04-27)
DX: A41.9 Sepsis, unspecified organism (principal); E11.10 Type 2 diabetes mellitus with ketoacidosis without coma; J15.69 Pneumonia due to other Gram-negative bacteria; J96.21 Acute and chronic respiratory failure with hypoxia; J15.9 Unspecified bacterial pneumonia; J44.0 Chronic obstructive pulmonary disease with (acute) lower respiratory infection; J44.1 Chronic obstructive pulmonary disease with (acute) exacerbation; I10 Essential (primary) hypertension; Z86.711 Personal history of pulmonary embolism; Z88.0 Allergy status to penicillin
CPT/HCPCS: 36415; 36600; 71045; 80048; 80076; 82009; 82803; 82948; 83036; 83605; 83735; 83880; 84100; 84484; 85025; 85610; 85730; 87040; 87070; 87081; 87205; 93005; 94003; 94640; 94660; 96368; 96375; 97116; 97163-GP; 99285; J1815; J1956; J2270; J2919; J2920; J3475; J3490; J7030; J7613; J7626; J7644

== ENCOUNTER 2024-06-11 08:11 | Inpatient (IN) | payer OTHER ==
[~2024-06-11] VITALS: Ht 157.5 cm; Wt 55.3 kg
[2024-06-11] VITALS (18 sets, daily range): BP systolic 102–160; BP diastolic 55–69; PULSE 82–110; RESP 15–27; TEMP 98.2–98.7; O2SAT 91–99
[~2024-06-11 08:11] MED LIST changes: -PRED10TA5 PO
[2024-06-11] MEDS: ALBUTEROL SULFATE/IPRATROPIU 3 ML SOL IH ONE (08:29)
[2024-06-11 09:22] LABS: BASOPHILS # (AUTO) 0.1 K/uL (0.00-0.22); BASOPHILS % (AUTO) 1.2 % (0.0-2.0); EOSINOPHILS % (AUTO) 0.1 % (0.0-4.0); HEMATOCRIT 38.1 % (36-48); HEMOGLOBIN 10.5 g/dL (12.0-16.0); LYMPHOCYTES # (AUTO) 0.9 K/uL (2.5-16.5); LYMPHOCYTES % (AUTO) 9.2 % (20.5-51.1); MEAN CORPUSCULAR HEMOGLOBIN 21 pg (27-31); MEAN CORPUSCULAR HGB CONC 28 g/dL (33-37); MEAN CORPUSCULAR VOLUME 77.5 fL (80-94); MONOCYTES # (AUTO) 0.6 K/uL (0.8-1.0); MONOCYTES % (AUTO) 5.6 % (1.7-9.3); NEUTROPHILS # (AUTO) 8.4 K/uL (1.8-7.7); NEUTROPHILS % (AUTO) 83.9 % (42.2-75.2); PLATELET COUNT (AUTO) 462 K/uL (140-450); RED BLOOD CELL COUNT(AUTO) 4.91 MIL/uL (4.20-5.40); RED CELL DISTRIBUTION WIDTH 20.5 % (11.6-13.7)
[2024-06-11 09:40] LABS: INR 0.94 (0.8-1.2); PARTIAL THROMBOPLASTIN TIME 24.7 secs (22-35.6); PROTHROMBIN TIME 9.9 secs (10.8-13.4)
[2024-06-11 09:48] LABS: ANION GAP 32.6 (8-16); CALCIUM 8.5 mg/dL (8.5-10.1); CARBON DIOXIDE 12.5 mmol/L (21-32); CREATININE 1.4 mg/dL (0.6-1.3); POTASSIUM 5.1 mmol/L (3.5-5.1)
[2024-06-11 09:53] LABS: BILIRUBIN,DIRECT 0.1 mg/dL (0.0-0.3)
[2024-06-11] MEDS: NACL 0.9% 1,000 ML IV ONE ×2 (10:13)
[2024-06-11] MEDS: HYDROcodone/APAP 5/325 MG 1 TAB TAB PO ONE (10:47)
[2024-06-11 10:48] LABS: FLU B ANTIGEN negative (NEGATIVE)
[2024-06-11 10:52] LABS: FLU A ANTIGEN POSITIVE (NEGATIVE)
[2024-06-11 10:53] LABS: ALANINE AMINOTRANSFERASE 19 U/L (12-78); ALBUMIN 3.6 g/dL (3.4-5.0); ALKALINE PHOSPHATASE 144 U/L (50-136); ASPARTATE AMINOTRANSFERASE 12 U/L (15-37); MAGNESIUM 2.2 mg/dL (1.8-2.4); PHOSPHORUS 4.9 mg/dL (2.5-4.9); TOTAL BILIRUBIN 0.6 mg/dL (0.0-1.0); TOTAL PROTEIN, SERUM 8.1 g/dL (6.4-8.2)
[2024-06-11] MEDS: INSULIN REGULAR, HUMAN 100 UNIT in NACL 0.9% 100 ML IV SCH (10:54)
[2024-06-11 11:03] LABS: ACETONE, SERUM Moderate (NEGATIVE)
[2024-06-11] MEDS: OSELTAMIVIR PHOSPHATE 75 MG CAP PO ONE (11:11)
[2024-06-11] MEDS ORDERED: ACETAMINOPHEN 325 MG TAB PO PRN (12:05)
[2024-06-11] MEDS ORDERED: ZOLPIDEM 5 MG TAB PO PRN (12:05)
[2024-06-11] MEDS ORDERED: MAG SULF 2000 MG/WATER PREMIX 50 ML IV PRN (12:05)
[2024-06-11] MEDS ORDERED: LORazepam 1 MG TAB PO PRN (12:05)
[2024-06-11] MEDS ORDERED: KCL 20 MEQ IN 100 mL PREMIX 200 ML IV PRN (12:05)
[2024-06-11] MEDS: DEXT 5% / NACL 0.45% 1,000 ML IV SCH (12:55)
[2024-06-11] MEDS ORDERED: DEXTROSE 50% 50 ML SYR IVP PRN (12:55)
[2024-06-11] MEDS: BLOOD GLUCOSE MONITORING 1 DEV DEV FS SCH (12:56)
[2024-06-11] MEDS: HYDROmorphone 1 MG/ML AMP IVP PRN (13:02)
[2024-06-11] MEDS: ALBUTEROL 0.083% 2.5 MG/3 ML NEBU INH PRN (13:05)
[2024-06-11] MEDS: IPRATROPIUM 0.02% 0.5 MG/2.5 ML NEBU INH PRN (13:05)
[2024-06-11] MEDS: GABAPENTIN 300 MG CAP PO SCH (13:05)
[2024-06-11] MEDS: NACL 0.9% 1,000 ML IV SCH (13:06)
[2024-06-11] MEDS: AZITHROMYCIN 250 MG TAB PO SCH (13:12)
[2024-06-11 13:56] LABS: MAGNESIUM 1.9 mg/dL (1.8-2.4)
[2024-06-11 14:10] LABS: ANION GAP 29.1 (8-16); CALCIUM 7.5 mg/dL (8.5-10.1); CARBON DIOXIDE 11.5 mmol/L (21-32); CREATININE 1.3 mg/dL (0.6-1.3); POTASSIUM 3.6 mmol/L (3.5-5.1)
[2024-06-11 17:13] LABS: ANION GAP 20.8 (8-16); CALCIUM 7.4 mg/dL (8.5-10.1); CARBON DIOXIDE 15.9 mmol/L (21-32); POTASSIUM 3.7 mmol/L (3.5-5.1)
[2024-06-11 17:23] LABS: MAGNESIUM 1.8 mg/dL (1.8-2.4); PHOSPHORUS 1.6 mg/dL (2.5-4.9)
[2024-06-11] MEDS: methylPREDNISolone SS 40 MG/ML VIAL IVP SCH (18:03)
[2024-06-11] MEDS: MAGNESIUM OXIDE 400 MG TAB PO PRN (18:03)
[2024-06-11] MEDS: HYDROcodone/APAP 5/325 MG 1 TAB TAB PO PRN (18:04)
[2024-06-11] MEDS ORDERED: SODIUM PHOSPHATE 15 MMOLE in NACL 0.9% 250 ML IV PRN (18:05)
[2024-06-11] MEDS: SODIUM PHOSPHATE 30 MMOLE in NACL 0.9% 250 ML IV SCH (19:15)
[2024-06-11] MEDS: MONTELUKAST SODIUM 10 MG TAB PO SCH (20:07)
[2024-06-11] MEDS: APIXABAN 2.5 MG TAB PO SCH (20:13)
[2024-06-11] MEDS: OSELTAMIVIR PHOSPHATE 30 MG CAP PO SCH (20:26)
[2024-06-11] MEDS ORDERED: OSELTAMIVIR PHOSPHATE 75 MG CAP PO SCH (21:00)
[2024-06-11 21:36] LABS: ANION GAP 18.1 (8-16); CALCIUM 7.4 mg/dL (8.5-10.1); CARBON DIOXIDE 17.3 mmol/L (21-32); CREATININE 0.9 mg/dL (0.6-1.3); POTASSIUM 3.4 mmol/L (3.5-5.1)
[2024-06-11 21:46] LABS: MAGNESIUM 1.9 mg/dL (1.8-2.4); PHOSPHORUS 2.7 mg/dL (2.5-4.9)
[2024-06-11] MEDS: POTASSIUM CHLORIDE 10 MEQ TABER PO PRN (22:51)
[2024-06-12] VITALS (30 sets, daily range): BP systolic 104–135; BP diastolic 47–70; PULSE 72–87; RESP 18–26; TEMP 97–98; O2SAT 91–99
[2024-06-12 01:25] LABS: ANION GAP 14.5 (8-16); CREATININE 0.9 mg/dL (0.6-1.3); POTASSIUM 3.5 mmol/L (3.5-5.1)
[2024-06-12 01:26] LABS: MAGNESIUM 1.8 mg/dL (1.8-2.4); PHOSPHORUS 3.4 mg/dL (2.5-4.9)
[2024-06-12 05:31] LABS: BASOPHILS % (AUTO) 0.1 % (0.0-2.0); HEMATOCRIT 33.3 % (36-48); HEMOGLOBIN 9.4 g/dL (12.0-16.0); LYMPHOCYTES # (AUTO) 0.5 K/uL (2.5-16.5); MEAN CORPUSCULAR HEMOGLOBIN 21 pg (27-31); MEAN CORPUSCULAR HGB CONC 28 g/dL (33-37); MEAN CORPUSCULAR VOLUME 74.6 fL (80-94); MONOCYTES # (AUTO) 0.1 K/uL (0.8-1.0); MONOCYTES % (AUTO) 1.3 % (1.7-9.3); NEUTROPHILS % (AUTO) 92.6 % (42.2-75.2); PLATELET COUNT (AUTO) 355 K/uL (140-450); RED BLOOD CELL COUNT(AUTO) 4.46 MIL/uL (4.20-5.40); RED CELL DISTRIBUTION WIDTH 19.7 % (11.6-13.7); WHITE BLOOD COUNT (AUTO) 7.5 K/uL (4.8-10.8)
[2024-06-12 05:45] LABS: ANION GAP 18.6 (8-16); CALCIUM 7.5 mg/dL (8.5-10.1); CARBON DIOXIDE 18.5 mmol/L (21-32); CREATININE 1.2 mg/dL (0.6-1.3); MAGNESIUM 1.9 mg/dL (1.8-2.4); POTASSIUM 4.1 mmol/L (3.5-5.1); TOTAL BILIRUBIN 0.2 mg/dL (0.0-1.0)
[2024-06-12] MEDS: INSULIN REGULAR, HUMAN 100 UNIT in NACL 0.9% 100 ML IV SCH (07:15)
[2024-06-12] MEDS: SERTRALINE 50 MG TAB PO SCH (08:06)
[2024-06-12] MEDS: FUROSEMIDE 40 MG TAB PO SCH (08:06)
[2024-06-12] MEDS: DOCUSATE SODIUM 100 MG GELCAP PO SCH (08:06)
[2024-06-12] MEDS ORDERED: APIXABAN 2.5 MG TAB PO SCH (09:00)
[2024-06-12 09:47] LABS: ANION GAP 16.8 (8-16); CALCIUM 7.5 mg/dL (8.5-10.1); CARBON DIOXIDE 19.8 mmol/L (21-32); CREATININE 0.9 mg/dL (0.6-1.3); POTASSIUM 4.6 mmol/L (3.5-5.1)
[2024-06-12 09:52] LABS: MAGNESIUM 1.9 mg/dL (1.8-2.4); PHOSPHORUS 1.5 mg/dL (2.5-4.9)
[2024-06-12] MEDS: CALCIUM GLUC 1 GM/50 mL NS BAG 50 ML IV SCH (11:22)
[2024-06-12] MEDS: SODIUM PHOSPHATE 15 MMOLE in NACL 0.9% 250 ML IV SCH (12:16)
[2024-06-12 13:11] LABS: ANION GAP 17.9 (8-16); CALCIUM 7.6 mg/dL (8.5-10.1); CARBON DIOXIDE 19.9 mmol/L (21-32); CREATININE 0.9 mg/dL (0.6-1.3); POTASSIUM 3.8 mmol/L (3.5-5.1)
[2024-06-12 13:16] LABS: MAGNESIUM 1.6 mg/dL (1.8-2.4); PHOSPHORUS 1.6 mg/dL (2.5-4.9)
[2024-06-12 16:35] LABS: ANION GAP 16.8 (8-16); CALCIUM 7.2 mg/dL (8.5-10.1); CARBON DIOXIDE 20.8 mmol/L (21-32); CREATININE 0.8 mg/dL (0.6-1.3); POTASSIUM 3.6 mmol/L (3.5-5.1)
[2024-06-12 16:55] LABS: MAGNESIUM 1.7 mg/dL (1.8-2.4); PHOSPHORUS 1.9 mg/dL (2.5-4.9)
[2024-06-12] MEDS: ALBUTEROL SULFATE/IPRATROPIU 3 ML SOL IH PRN (19:14)
[2024-06-12] MEDS: BLOOD GLUCOSE MONITORING 1 DEV DEV FS SCH (20:12)
[2024-06-12 20:23] LABS: ANION GAP 14.3 (8-16); CALCIUM 7.1 mg/dL (8.5-10.1); CARBON DIOXIDE 22.2 mmol/L (21-32); CREATININE 0.8 mg/dL (0.6-1.3); POTASSIUM 3.5 mmol/L (3.5-5.1)
[2024-06-12 20:33] LABS: MAGNESIUM 1.6 mg/dL (1.8-2.4); PHOSPHORUS 1.8 mg/dL (2.5-4.9)
[2024-06-13] VITALS (23 sets, daily range): BP systolic 108–140; BP diastolic 54–78; PULSE 66–88; RESP 12–22; TEMP 97.1–98.2; O2SAT 94–100
[2024-06-13 01:02] LABS: ANION GAP 13.1 (8-16); CALCIUM 7.8 mg/dL (8.5-10.1); CARBON DIOXIDE 23.1 mmol/L (21-32); CREATININE 0.6 mg/dL (0.6-1.3); POTASSIUM 4.2 mmol/L (3.5-5.1)
[2024-06-13 01:08] LABS: MAGNESIUM 1.8 mg/dL (1.8-2.4); PHOSPHORUS 1.6 mg/dL (2.5-4.9)
[2024-06-13 04:59] LABS: BASOPHILS % (AUTO) 0.2 % (0.0-2.0); HEMATOCRIT 29.7 % (36-48); HEMOGLOBIN 8.6 g/dL (12.0-16.0); LYMPHOCYTES # (AUTO) 0.3 K/uL (2.5-16.5); MEAN CORPUSCULAR HEMOGLOBIN 22 pg (27-31); MEAN CORPUSCULAR HGB CONC 29 g/dL (33-37); MEAN CORPUSCULAR VOLUME 74.1 fL (80-94); MONOCYTES # (AUTO) 0.4 K/uL (0.8-1.0); MONOCYTES % (AUTO) 3.3 % (1.7-9.3); NEUTROPHILS # (AUTO) 10.3 K/uL (1.8-7.7); NEUTROPHILS % (AUTO) 93.5 % (42.2-75.2); PLATELET COUNT (AUTO) 314 K/uL (140-450); RED CELL DISTRIBUTION WIDTH 19.5 % (11.6-13.7)
[2024-06-13 05:00] LABS: ANION GAP 14.1 (8-16); CALCIUM 7.9 mg/dL (8.5-10.1); CARBON DIOXIDE 23.2 mmol/L (21-32); CREATININE 0.7 mg/dL (0.6-1.3); POTASSIUM 3.3 mmol/L (3.5-5.1)
[2024-06-13 05:15] LABS: MAGNESIUM 1.9 mg/dL (1.8-2.4); PHOSPHORUS 1.2 mg/dL (2.5-4.9)
[2024-06-13 08:25] LABS: ANION GAP 13.8 (8-16); CALCIUM 7.4 mg/dL (8.5-10.1); CARBON DIOXIDE 22.6 mmol/L (21-32); CREATININE 0.6 mg/dL (0.6-1.3); POTASSIUM 4.4 mmol/L (3.5-5.1)
[2024-06-13 08:29] LABS: MAGNESIUM 1.9 mg/dL (1.8-2.4); PHOSPHORUS 1.2 mg/dL (2.5-4.9)
[2024-06-13] MEDS ORDERED: DEXTROSE 50% 50 ML SYR IVP PRN (09:45)
[2024-06-13] MEDS ORDERED: INSULIN LANTUS 100 UNITS/ML 10 ML VIAL SUBQ SCH (10:10)
[2024-06-13] MEDS: INSULIN LANTUS 100 UNITS/ML 10 ML VIAL SUBQ SCH (10:21)
[2024-06-13] MEDS: BLOOD GLUCOSE MONITORING 1 DEV DEV FS SCH (11:52)
[2024-06-13] MEDS: INSULIN LISPRO SLIDING SCALE 100 UNITS/ML VIAL SUBQ PRN (11:53)
[2024-06-13] MEDS: ALBUTEROL SULFATE/IPRATROPIU 3 ML SOL IH SCH (20:04)
[2024-06-13] MEDS: OSELTAMIVIR PHOSPHATE 75 MG CAP PO SCH (20:51)
[2024-06-13] MEDS: PROMETH/CODEINE 6.25-10MG/5ML 5 ML UDC PO PRN (21:02)
[2024-06-14] VITALS (15 sets, daily range): BP systolic 103–131; BP diastolic 59–72; PULSE 69–87; RESP 16–22; TEMP 96.7–97.9; O2SAT 94–100
[2024-06-14 06:32] LABS: HEMATOCRIT 28.4 % (36-48); HEMOGLOBIN 8.3 g/dL (12.0-16.0); LYMPHOCYTES # (AUTO) 0.4 K/uL (2.5-16.5); LYMPHOCYTES % (AUTO) 4.4 % (20.5-51.1); MEAN CORPUSCULAR HEMOGLOBIN 22 pg (27-31); MEAN CORPUSCULAR HGB CONC 29 g/dL (33-37); MEAN CORPUSCULAR VOLUME 74.1 fL (80-94); MONOCYTES # (AUTO) 0.3 K/uL (0.8-1.0); MONOCYTES % (AUTO) 3.4 % (1.7-9.3); NEUTROPHILS # (AUTO) 8.1 K/uL (1.8-7.7); PLATELET COUNT (AUTO) 273 K/uL (140-450); RED BLOOD CELL COUNT(AUTO) 3.83 MIL/uL (4.20-5.40); RED CELL DISTRIBUTION WIDTH 20.4 % (11.6-13.7); WHITE BLOOD COUNT (AUTO) 8.8 K/uL (4.8-10.8)
[2024-06-14 06:50] LABS: ALBUMIN 2.5 g/dL (3.4-5.0); ANION GAP 12.2 (8-16); CALCIUM 7.9 mg/dL (8.5-10.1); CARBON DIOXIDE 26.1 mmol/L (21-32); CREATININE 0.7 mg/dL (0.6-1.3); MAGNESIUM 1.8 mg/dL (1.8-2.4); PHOSPHORUS 2.1 mg/dL (2.5-4.9); POTASSIUM 5.3 mmol/L (3.5-5.1); TOTAL BILIRUBIN 0.2 mg/dL (0.0-1.0); TOTAL PROTEIN, SERUM 5.7 g/dL (6.4-8.2)
[2024-06-14 07:15] LABS: NEUTROPHILS % (AUTO) 92.2 % (42.2-75.2)
[2024-06-14] MEDS: INSULIN LANTUS 100 UNITS/ML 10 ML VIAL SUBQ SCH (09:20)
[2024-06-14] MEDS: methylPREDNISolone SS 40 MG/ML VIAL IVP SCH (09:20)
[2024-06-14] MEDS: MEDS-TO-BEDS MC SCH (20:35)
[2024-06-15] VITALS (9 sets, daily range): BP systolic 125–128; BP diastolic 69–75; PULSE 68–86; RESP 16–20; TEMP 96.9–98; O2SAT 92–99
[2024-06-15 07:50] LABS: ALBUMIN 2.7 g/dL (3.4-5.0); ANION GAP 12.7 (8-16); CALCIUM 8.8 mg/dL (8.5-10.1); CARBON DIOXIDE 31.2 mmol/L (21-32); CREATININE 0.8 mg/dL (0.6-1.3); MAGNESIUM 1.8 mg/dL (1.8-2.4); PHOSPHORUS 3.6 mg/dL (2.5-4.9); TOTAL BILIRUBIN 0.2 mg/dL (0.0-1.0); TOTAL PROTEIN, SERUM 6.5 g/dL (6.4-8.2)
[2024-06-15 07:51] LABS: BASOPHILS # (AUTO) 0.1 K/uL (0.00-0.22); BASOPHILS % (AUTO) 0.5 % (0.0-2.0); EOSINOPHILS # (AUTO) 0.1 K/uL (0-0.4); EOSINOPHILS % (AUTO) 0.8 % (0.0-4.0); HEMATOCRIT 31.6 % (36-48); HEMOGLOBIN 9.3 g/dL (12.0-16.0); LYMPHOCYTES # (AUTO) 1.4 K/uL (2.5-16.5); LYMPHOCYTES % (AUTO) 14.1 % (20.5-51.1); MEAN CORPUSCULAR HEMOGLOBIN 22 pg (27-31); MEAN CORPUSCULAR HGB CONC 29 g/dL (33-37); MEAN CORPUSCULAR VOLUME 73.3 fL (80-94); MONOCYTES # (AUTO) 0.5 K/uL (0.8-1.0); MONOCYTES % (AUTO) 5.6 % (1.7-9.3); NEUTROPHILS # (AUTO) 7.7 K/uL (1.8-7.7); PLATELET COUNT (AUTO) 306 K/uL (140-450); RED BLOOD CELL COUNT(AUTO) 4.31 MIL/uL (4.20-5.40); RED CELL DISTRIBUTION WIDTH 20.3 % (11.6-13.7); WHITE BLOOD COUNT (AUTO) 9.7 K/uL (4.8-10.8)
[2024-06-15 08:00] LABS: POTASSIUM 5.9 mmol/L (3.5-5.1)
[2024-06-15] MEDS ORDERED: PRED20TA5 PO (10:03)
[2024-06-15] MEDS ORDERED: AZIT250T11 PO (10:03)
[2024-06-15] MEDS ORDERED: TAM75 PO (10:03)
== END 2024-06-15 14:35 | disposition home or self-care (01) | DRG 637 ==
LOC: MED 08:11 → MIC 12:10 → MTU 06-13 18:45
PROVIDERS: ADMIT Hospitalist; ATTEND Hospitalist
DX: E10.10 Type 1 diabetes mellitus with ketoacidosis without coma (principal); J96.21 Acute and chronic respiratory failure with hypoxia; J44.1 Chronic obstructive pulmonary disease with (acute) exacerbation; J10.1 Influenza due to other identified influenza virus with other respiratory manifestations; E10.22 Type 1 diabetes mellitus with diabetic chronic kidney disease; N18.30 Chronic kidney disease, stage 3 unspecified; F17.200 Nicotine dependence, unspecified, uncomplicated; Z20.822 Contact with and (suspected) exposure to COVID-19; F32.A Depression, unspecified; G89.29 Other chronic pain; E10.40 Type 1 diabetes mellitus with diabetic neuropathy, unspecified; G47.00 Insomnia, unspecified; J40 Bronchitis, not specified as acute or chronic; Z88.0 Allergy status to penicillin; Z88.1 Allergy status to other antibiotic agents; Z88.8 Allergy status to other drugs, medicaments and biological substances; Z79.4 Long term (current) use of insulin; Z79.51 Long term (current) use of inhaled steroids; Z79.899 Other long term (current) drug therapy; Z85.118 Personal history of other malignant neoplasm of bronchus and lung
CPT/HCPCS: 36415; 71045; 80048; 80053; 80076; 82009; 82803; 82948; 83690; 83735; 83880; 84100; 84484; 85025; 85610; 85730; 87070; 87081; 87186; 87205; 93005; 94640; 96361; 96365; 99291; J0610; J1170; J1815; J2920; J7030; J7613; J7644

== ENCOUNTER 2024-07-09 11:17 | Emergency (ER) | payer OTHER ==
[~2024-07-09] VITALS: Ht 157.5 cm; Wt 50.8 kg
[~2024-07-09 11:17] MED LIST changes: +GABA300C PO; -PRED20TA5 PO; +PRED20TA6 PO
[2024-07-09 11:19] VITALS: BP 126/82; PULSE 104; RESP 22; TEMP 98.2; O2SAT 97
[2024-07-09] MEDS ORDERED: ALBUTEROL SULFATE/IPRATROPIU 3 ML SOL IH ONE ×2 (11:53→14:50)
[2024-07-09 11:59] LABS: HEMATOCRIT 32.4 % (36-48); HEMOGLOBIN 9.2 g/dL (12.0-16.0); MEAN CORPUSCULAR HEMOGLOBIN 21 pg (27-31); MEAN CORPUSCULAR HGB CONC 28 g/dL (33-37); MEAN CORPUSCULAR VOLUME 74.6 fL (80-94); PLATELET COUNT (AUTO) 321 K/uL (140-450); RED BLOOD CELL COUNT(AUTO) 4.35 MIL/uL (4.20-5.40); RED CELL DISTRIBUTION WIDTH 21.5 % (11.6-13.7); WHITE BLOOD COUNT (AUTO) 13.6 K/uL (4.8-10.8)
[2024-07-09] MEDS: NACL 0.9% 1,000 ML IV ONE (12:07)
[2024-07-09 12:10] LABS: ANION GAP 20.1 (8-16); CALCIUM 8.4 mg/dL (8.5-10.1); CARBON DIOXIDE 23.5 mmol/L (21-32); CREATININE 0.9 mg/dL (0.6-1.3); POTASSIUM 4.6 mmol/L (3.5-5.1)
[2024-07-09 12:20] VITALS: PULSE 82; RESP 20; O2SAT 97
[2024-07-09 12:22] VITALS: O2SAT 97
[2024-07-09 12:22] LABS: PLATELET ESTIMATE ADEQUATE
[2024-07-09 12:23] LABS: ANISOCYTOSIS 1+; POIKILOCYTOSIS 1+; POLYCHROMASIA 1+; TARGET CELLS FEW
[2024-07-09 12:40] LABS: EOSINOPHILS % (MANUAL) 1 % (0-4); LYMPHOCYTES % (MANUAL) 7 % (20-46); MONOCYTES % (MANUAL) 3 % (5-12)
[2024-07-09] MEDS: ALBUTEROL SULFATE/IPRATROPIU 3 ML SOL IH ONE (12:45)
[2024-07-09] MEDS: MORPHINE SULFATE 4 MG/ML SYR IVP ONE ×2 (13:26→15:17)
[2024-07-09] MEDS: INSULIN REGULAR, HUMAN 100 UNIT/ML VIAL IVP ONE (13:36)
[2024-07-09] MEDS ORDERED: MORPHINE SULFATE 4 MG/ML SYR IVP ONE (13:45)
[2024-07-09] MEDS ORDERED: ALBUTEROL 0.083% 2.5 MG/3 ML NEBU INH ONE (14:50)
[2024-07-09 15:30] VITALS: BP 135/68; TEMP 98
[2024-07-09 16:25] VITALS: PULSE 85; RESP 21; O2SAT 100
== END 2024-07-09 15:30 | disposition home or self-care (01) ==
LOC: MED 11:17
DX: J44.9 Chronic obstructive pulmonary disease, unspecified (principal); M54.9 Dorsalgia, unspecified; E11.65 Type 2 diabetes mellitus with hyperglycemia; I48.91 Unspecified atrial fibrillation; K21.9 Gastro-esophageal reflux disease without esophagitis; I10 Essential (primary) hypertension; F17.200 Nicotine dependence, unspecified, uncomplicated; Z90.49 Acquired absence of other specified parts of digestive tract; Z79.899 Other long term (current) drug therapy; Z79.82 Long term (current) use of aspirin; Z79.4 Long term (current) use of insulin; Z79.01 Long term (current) use of anticoagulants; Z88.8 Allergy status to other drugs, medicaments and biological substances; Z88.0 Allergy status to penicillin; Z88.1 Allergy status to other antibiotic agents
CPT/HCPCS: 36415; 71045; 80048; 82803; 82948; 83880; 84484; 85025; 93005; 94640; 96361; 96374; 96375; 96376; 99285; J1815; J2270; J7030; J7613

== ENCOUNTER 2024-07-10 11:40 | Inpatient (IN) | payer OTHER ==
[~2024-07-10] VITALS: Ht 160 cm; Wt 52.2 kg
[2024-07-10] VITALS (8 sets, daily range): BP systolic 111–166; BP diastolic 63–65; PULSE 76–108; RESP 18–28; TEMP 98.3–98.8; O2SAT 95–99
[2024-07-10] MEDS: ALBUTEROL SULFATE/IPRATROPIU 3 ML SOL IH ONE ×2 (12:10→13:37)
[2024-07-10] MEDS: NACL 0.9% 1,000 ML IV ONE (12:18)
[2024-07-10 12:21] LABS: BASOPHILS # (AUTO) 0.1 K/uL (0.00-0.22); BASOPHILS % (AUTO) 0.7 % (0.0-2.0); EOSINOPHILS % (AUTO) 0.2 % (0.0-4.0); HEMATOCRIT 33.1 % (36-48); HEMOGLOBIN 9.5 g/dL (12.0-16.0); LYMPHOCYTES % (AUTO) 9.4 % (20.5-51.1); MEAN CORPUSCULAR HEMOGLOBIN 22 pg (27-31); MEAN CORPUSCULAR HGB CONC 29 g/dL (33-37); MONOCYTES # (AUTO) 0.4 K/uL (0.8-1.0); MONOCYTES % (AUTO) 3.7 % (1.7-9.3); NEUTROPHILS # (AUTO) 9.3 K/uL (1.8-7.7); PLATELET COUNT (AUTO) 430 K/uL (140-450); RED BLOOD CELL COUNT(AUTO) 4.41 MIL/uL (4.20-5.40); RED CELL DISTRIBUTION WIDTH 21.4 % (11.6-13.7); WHITE BLOOD COUNT (AUTO) 10.8 K/uL (4.8-10.8)
[2024-07-10] MEDS: methylPREDNISolone SS 125 MG/2 ML VIAL IVP ONE (12:21)
[2024-07-10] MEDS: ONDANSETRON 4 MG/2 ML VIAL IVP ONE (12:23)
[2024-07-10] MEDS: MORPHINE SULFATE 4 MG/ML SYR IVP ONE (12:28)
[2024-07-10 13:01] LABS: APPEARANCE,URINE CLEAR (CLEAR); BILIRUBIN,URINE NEGATIVE (NEGATIVE); BLOOD, URINE NEGATIVE (NEGATIVE); COLOR,URINE YELLOW (YELLOW); LEUKOCYTE ESTERASE ,URINE NEGATIVE (NEGATIVE); NITRITE, URINE NEGATIVE (NEGATIVE); PROTEIN,URINE NEGATIVE (NEGATIVE); UGLUCOSE 3+ (NEGATIVE); UROBILINOGEN,URINE 0.2 EU/dL (0.2 - 1)
[2024-07-10 13:05] LABS: ACETONE, SERUM Negative (NEGATIVE)
[2024-07-10 13:06] LABS: ANION GAP 17.3 (8-16); CALCIUM 9.9 mg/dL (8.5-10.1); CARBON DIOXIDE 28.9 mmol/L (21-32); POTASSIUM 5.2 mmol/L (3.5-5.1)
[2024-07-10 13:08] LABS: INR 0.94 (0.8-1.2); PARTIAL THROMBOPLASTIN TIME 23.4 secs (22-35.6); PROTHROMBIN TIME 9.9 secs (10.8-13.4)
[2024-07-10 13:12] LABS: ALANINE AMINOTRANSFERASE 24 U/L (12-78); ALBUMIN 3.6 g/dL (3.4-5.0); ALKALINE PHOSPHATASE 112 U/L (50-136); ASPARTATE AMINOTRANSFERASE 24 U/L (15-37); BILIRUBIN,DIRECT 0.1 mg/dL (0.0-0.3); MAGNESIUM 1.8 mg/dL (1.8-2.4); PHOSPHORUS 4.3 mg/dL (2.5-4.9); TOTAL BILIRUBIN 0.6 mg/dL (0.0-1.0); TOTAL PROTEIN, SERUM 7.3 g/dL (6.4-8.2)
[2024-07-10] MEDS: MAG SULF 2000 MG/WATER PREMIX 50 ML IV ONE (13:19)
[2024-07-10 13:41] LABS: FLU A ANTIGEN negative (NEGATIVE); FLU B ANTIGEN NEGATIVE (NEGATIVE)
[2024-07-10] MEDS ORDERED: AZITHROMYCIN 500 MG INJ VIAL IV ONE (14:34)
[2024-07-10] MEDS: LEVOFLOXACIN 500 MG/D5W PREMIX 100 ML IV ONE (14:37)
[2024-07-10] MEDS: AZITHROMYCIN 500 MG in DEXTROSE 5% 250 ML IV ONE (14:37)
[2024-07-10] MEDS: INSULIN REGULAR, HUMAN 100 UNIT/ML VIAL IV ONE (14:40)
[2024-07-10] MEDS: HYDROcodone/APAP 5/325 MG 1 TAB TAB PO ONE (14:50)
[2024-07-10] MEDS ORDERED: oxyCODONE 5 MG TAB PO PRN (15:35)
[2024-07-10] MEDS ORDERED: LORazepam 1 MG TAB PO PRN (15:35)
[2024-07-10] MEDS ORDERED: ACETAMINOPHEN 325 MG TAB PO PRN (15:35)
[2024-07-10] MEDS ORDERED: ONDANSETRON 4 MG/2 ML VIAL IVP PRN (15:35)
[2024-07-10] MEDS ORDERED: ZOLPIDEM 5 MG TAB PO PRN (15:35)
[2024-07-10] MEDS: INSULIN LANTUS 100 UNITS/ML 10 ML VIAL SUBQ SCH (16:26)
[2024-07-10] MEDS: BLOOD GLUCOSE MONITORING 1 DEV DEV FS SCH (16:30)
[2024-07-10] MEDS: GABAPENTIN 300 MG CAP PO SCH (17:00)
[2024-07-10] MEDS: HYDROmorphone 1 MG/ML AMP IVP PRN (18:59)
[2024-07-10] MEDS: ALBUTEROL SULFATE/IPRATROPIU 3 ML SOL IH SCH ×2 (19:18→23:01)
[2024-07-10] MEDS: BUDESONIDE 0.5 MG/2 ML NEBU INH SCH (19:18)
[2024-07-10] MEDS: APIXABAN 2.5 MG TAB PO SCH (21:18)
[2024-07-10] MEDS: INSULIN LISPRO 100 UNITS/ML VIAL SUBQ SCH (21:24)
[2024-07-10] MEDS: MONTELUKAST SODIUM 10 MG TAB PO SCH (21:32)
[2024-07-11] VITALS (13 sets, daily range): BP systolic 102–138; BP diastolic 48–67; PULSE 71–95; RESP 16–22; TEMP 97–98.8; O2SAT 94–100
[2024-07-11 05:13] LABS: BASOPHILS % (AUTO) 0.3 % (0.0-2.0); HEMATOCRIT 24.7 % (36-48); HEMOGLOBIN 7.4 g/dL (12.0-16.0); LYMPHOCYTES # (AUTO) 1.8 K/uL (2.5-16.5); MEAN CORPUSCULAR HEMOGLOBIN 22 pg (27-31); MEAN CORPUSCULAR HGB CONC 30 g/dL (33-37); MEAN CORPUSCULAR VOLUME 72.4 fL (80-94); MONOCYTES # (AUTO) 0.8 K/uL (0.8-1.0); MONOCYTES % (AUTO) 7.7 % (1.7-9.3); NEUTROPHILS # (AUTO) 7.4 K/uL (1.8-7.7); PLATELET COUNT (AUTO) 339 K/uL (140-450); RED BLOOD CELL COUNT(AUTO) 3.41 MIL/uL (4.20-5.40); RED CELL DISTRIBUTION WIDTH 20.3 % (11.6-13.7)
[2024-07-11 05:45] LABS: ALBUMIN 2.9 g/dL (3.4-5.0); ANION GAP 10.3 (8-16); CARBON DIOXIDE 30.8 mmol/L (21-32); MAGNESIUM 1.7 mg/dL (1.8-2.4); PHOSPHORUS 3.5 mg/dL (2.5-4.9); POTASSIUM 5.1 mmol/L (3.5-5.1); TOTAL BILIRUBIN 0.2 mg/dL (0.0-1.0); TOTAL PROTEIN, SERUM 5.8 g/dL (6.4-8.2)
[2024-07-11] MEDS: INSULIN LISPRO SLIDING SCALE 100 UNITS/ML VIAL SUBQ PRN (06:25)
[2024-07-11] MEDS: MEDS-TO-BEDS MC SCH (08:28)
[2024-07-11] MEDS: FUROSEMIDE 40 MG TAB PO SCH (08:29)
[2024-07-11] MEDS: ECOTRIN 81 MG TABEC PO SCH (08:30)
[2024-07-11] MEDS: DOCUSATE SODIUM 100 MG GELCAP PO SCH (08:30)
[2024-07-11] MEDS: SERTRALINE 50 MG TAB PO SCH (08:45)
[2024-07-11] MEDS: MAG SULF 2000 MG/WATER PREMIX 50 ML IV SCH (11:45)
[2024-07-11] MEDS: INSULIN LISPRO 100 UNITS/ML VIAL SUBQ SCH (16:30)
[2024-07-11] MEDS: ALBUTEROL SULFATE/IPRATROPIU 3 ML SOL IH PRN (16:48)
[2024-07-11] MEDS ORDERED: BUDESONIDE 0.5 MG/2 ML NEBU INH SCH (19:30)
[2024-07-11] MEDS: FAMOTIDINE 20 MG TAB PO SCH (20:34)
[2024-07-12] VITALS (9 sets, daily range): BP systolic 117–131; BP diastolic 63–72; PULSE 72–105; RESP 16–20; TEMP 97.2–97.7; O2SAT 94–100
[2024-07-12 05:09] LABS: BASOPHILS # (AUTO) 0.1 K/uL (0.00-0.22); BASOPHILS % (AUTO) 0.5 % (0.0-2.0); EOSINOPHILS # (AUTO) 0.1 K/uL (0-0.4); EOSINOPHILS % (AUTO) 0.4 % (0.0-4.0); HEMOGLOBIN 8.3 g/dL (12.0-16.0); MONOCYTES # (AUTO) 0.7 K/uL (0.8-1.0)
[2024-07-12 05:17] LABS: LYMPHOCYTES # (AUTO) 1.3 K/uL (2.5-16.5); LYMPHOCYTES % (AUTO) 9.2 % (20.5-51.1); MEAN CORPUSCULAR HEMOGLOBIN 22 pg (27-31); MEAN CORPUSCULAR HGB CONC 30 g/dL (33-37); MEAN CORPUSCULAR VOLUME 73.6 fL (80-94); MONOCYTES % (AUTO) 4.8 % (1.7-9.3); NEUTROPHILS # (AUTO) 12.3 K/uL (1.8-7.7); NEUTROPHILS % (AUTO) 85.1 % (42.2-75.2); PLATELET COUNT (AUTO) 354 K/uL (140-450); RED CELL DISTRIBUTION WIDTH 20.1 % (11.6-13.7); WHITE BLOOD COUNT (AUTO) 14.4 K/uL (4.8-10.8)
[2024-07-12 05:28] LABS: ALBUMIN 3.2 g/dL (3.4-5.0); ANION GAP 9.9 (8-16); CALCIUM 8.2 mg/dL (8.5-10.1); CARBON DIOXIDE 31.8 mmol/L (21-32); CREATININE 0.8 mg/dL (0.6-1.3); MAGNESIUM 1.7 mg/dL (1.8-2.4); PHOSPHORUS 4.2 mg/dL (2.5-4.9); POTASSIUM 4.7 mmol/L (3.5-5.1); TOTAL BILIRUBIN 0.2 mg/dL (0.0-1.0); TOTAL PROTEIN, SERUM 6.4 g/dL (6.4-8.2)
[2024-07-12] MEDS: predniSONE 20 MG TAB PO SCH (05:34)
[2024-07-12] MEDS ORDERED: predniSONE 20 MG TAB PO SCH (09:00)
[2024-07-12] MEDS ORDERED: GABAPENTIN 300 MG CAP PO SCH (09:00)
[2024-07-12] MEDS ORDERED: MAG SULF 2000 MG/WATER PREMIX 50 ML IV PRN (10:25)
[2024-07-12] MEDS ORDERED: PRED20TA6 PO (11:28)
== END 2024-07-12 13:38 | disposition home or self-care (01) | DRG 637 ==
LOC: MED 11:40 → MTU 15:31
PROVIDERS: ADMIT Hospitalist; ATTEND Hospitalist
DX: E11.00 Type 2 diabetes mellitus with hyperosmolarity without nonketotic hyperglycemic-hyperosmolar coma (NKHHC) (principal); E43 Unspecified severe protein-calorie malnutrition; I50.33 Acute on chronic diastolic (congestive) heart failure; J96.21 Acute and chronic respiratory failure with hypoxia; J18.0 Bronchopneumonia, unspecified organism; I13.0 Hypertensive heart and chronic kidney disease with heart failure and stage 1 through stage 4 chronic kidney disease, or unspecified chronic kidney disease; I48.20 Chronic atrial fibrillation, unspecified; R65.10 Systemic inflammatory response syndrome (SIRS) of non-infectious origin without acute organ dysfunction; J44.0 Chronic obstructive pulmonary disease with (acute) lower respiratory infection; J44.1 Chronic obstructive pulmonary disease with (acute) exacerbation; Z20.822 Contact with and (suspected) exposure to COVID-19; E11.22 Type 2 diabetes mellitus with diabetic chronic kidney disease; G89.29 Other chronic pain; N18.30 Chronic kidney disease, stage 3 unspecified; D63.8 Anemia in other chronic diseases classified elsewhere; E78.5 Hyperlipidemia, unspecified; Z88.5 Allergy status to narcotic agent; Z88.0 Allergy status to penicillin; Z88.2 Allergy status to sulfonamides; Z88.1 Allergy status to other antibiotic agents; Z79.51 Long term (current) use of inhaled steroids; Z79.82 Long term (current) use of aspirin; Z79.899 Other long term (current) drug therapy; Z68.20 Body mass index [BMI] 20.0-20.9, adult
CPT/HCPCS: 36415; 71045; 80048; 80053; 80076; 81003; 82009; 82948; 83605; 83735; 83880; 84100; 84484; 85025; 85610; 85730; 87040; 93005; 94640; 96365; 96368; 96375; 99291; J0456; J0696; J1170; J1815; J1956; J2270; J2405; J2919; J3475; J7060; J7512; J7626

== ENCOUNTER 2024-07-25 17:56 | Emergency (ER) | payer OTHER ==
[~2024-07-25] VITALS: Ht 157.5 cm; Wt 49.0 kg
[2024-07-25 18:03] VITALS: BP 132/75; PULSE 99; RESP 20; TEMP 98.1; O2SAT 95
[2024-07-25] MEDS ORDERED: ALBUTEROL SULFATE/IPRATROPIU 3 ML SOL IH ONE (19:25)
[2024-07-25] MEDS: ALBUTEROL SULFATE/IPRATROPIU 3 ML SOL IH ONE ×3 (19:25→21:11)
[2024-07-25] MEDS: MORPHINE SULFATE 4 MG/ML SYR IVP ONE (19:31)
[2024-07-25] MEDS: ALBUTEROL 0.083% 2.5 MG/3 ML NEBU INH ONE ×2 (19:33→21:12)
[2024-07-25 19:34] VITALS: PULSE 86; PULSE 89; RESP 19; RESP 20; O2SAT 98
[2024-07-25 20:20] LABS: BASOPHILS % (AUTO) 0.4 % (0.0-2.0); EOSINOPHILS % (AUTO) 0.1 % (0.0-4.0); HEMATOCRIT 29.8 % (36-48); HEMOGLOBIN 8.6 g/dL (12.0-16.0); LYMPHOCYTES # (AUTO) 0.9 K/uL (2.5-16.5); MEAN CORPUSCULAR HEMOGLOBIN 21 pg (27-31); MEAN CORPUSCULAR HGB CONC 29 g/dL (33-37); MEAN CORPUSCULAR VOLUME 72.5 fL (80-94); MONOCYTES # (AUTO) 0.3 K/uL (0.8-1.0); MONOCYTES % (AUTO) 2.4 % (1.7-9.3); NEUTROPHILS # (AUTO) 11.8 K/uL (1.8-7.7); NEUTROPHILS % (AUTO) 90.1 % (42.2-75.2); PLATELET COUNT (AUTO) 505 K/uL (140-450); RED BLOOD CELL COUNT(AUTO) 4.11 MIL/uL (4.20-5.40); RED CELL DISTRIBUTION WIDTH 20.9 % (11.6-13.7); WHITE BLOOD COUNT (AUTO) 13.1 K/uL (4.8-10.8)
[2024-07-25 20:37] LABS: ANION GAP 17.4 (8-16); CALCIUM 8.2 mg/dL (8.5-10.1); CARBON DIOXIDE 23.8 mmol/L (21-32); CREATININE 1.1 mg/dL (0.6-1.3); POTASSIUM 4.2 mmol/L (3.5-5.1)
[2024-07-25 21:12] VITALS: PULSE 89; RESP 19; O2SAT 90
[2024-07-25] MEDS: INSULIN REGULAR, HUMAN 100 UNIT/ML VIAL IVP ONE (21:37)
[2024-07-25] MEDS ORDERED: PRED50TA2 PO (21:57)
[2024-07-25] MEDS: MORPHINE SULFATE 4 MG/ML SYR IM ONE (22:12)
[2024-07-25 22:45] VITALS: BP 99/51; PULSE 89; RESP 19; TEMP 98.1; O2SAT 90
[2024-07-25] MEDS: INSULIN REGULAR, HUMAN 100 UNIT/ML VIAL SUBQ ONE (23:08)
== END 2024-07-25 22:45 | disposition home or self-care (01) ==
LOC: MED 17:56
DX: R06.02 Shortness of breath (principal); R07.89 Other chest pain; E11.9 Type 2 diabetes mellitus without complications; J44.9 Chronic obstructive pulmonary disease, unspecified; K21.9 Gastro-esophageal reflux disease without esophagitis; I11.0 Hypertensive heart disease with heart failure; I50.9 Heart failure, unspecified; I48.91 Unspecified atrial fibrillation; Z79.4 Long term (current) use of insulin; Z79.899 Other long term (current) drug therapy; Z90.49 Acquired absence of other specified parts of digestive tract; Z88.8 Allergy status to other drugs, medicaments and biological substances; Z88.0 Allergy status to penicillin
CPT/HCPCS: 36415; 71045; 80048; 82948; 83880; 84484; 85025; 93005; 94640; 96372; 96374; 96375; 99285; J1815; J2270; J7613

== ENCOUNTER 2024-07-31 10:36 | Inpatient (IN) | payer OTHER ==
[2024-07-31] VITALS (11 sets, daily range): BP systolic 139–162; BP diastolic 58–63; PULSE 86–100; RESP 20–28; TEMP 97.8–97.9; O2SAT 87–100
[~2024-07-31] VITALS: Ht 157.5 cm; Wt 48.1 kg
[~2024-07-31 10:36] MED LIST changes: +PRED50TA2 PO
[2024-07-31] MEDS: ALBUTEROL SULFATE/IPRATROPIU 3 ML SOL IH SCH ×2 (11:33→19:19)
[2024-07-31] MEDS: ALBUTEROL SULFATE/IPRATROPIU 3 ML SOL IH ONE ×2 (11:42→14:20)
[2024-07-31 12:26] LABS: BASOPHILS % (AUTO) 0.6 % (0.0-2.0); EOSINOPHILS % (AUTO) 0.1 % (0.0-4.0); HEMATOCRIT 32.2 % (36-48); HEMOGLOBIN 9.1 g/dL (12.0-16.0); LYMPHOCYTES # (AUTO) 1.1 K/uL (2.5-16.5); LYMPHOCYTES % (AUTO) 16.4 % (20.5-51.1); MEAN CORPUSCULAR HEMOGLOBIN 21 pg (27-31); MEAN CORPUSCULAR HGB CONC 28 g/dL (33-37); MEAN CORPUSCULAR VOLUME 73.6 fL (80-94); MONOCYTES # (AUTO) 0.3 K/uL (0.8-1.0); MONOCYTES % (AUTO) 3.9 % (1.7-9.3); NEUTROPHILS # (AUTO) 5.3 K/uL (1.8-7.7); PLATELET COUNT (AUTO) 407 K/uL (140-450); RED BLOOD CELL COUNT(AUTO) 4.37 MIL/uL (4.20-5.40); RED CELL DISTRIBUTION WIDTH 21.2 % (11.6-13.7); WHITE BLOOD COUNT (AUTO) 6.7 K/uL (4.8-10.8)
[2024-07-31] MEDS: MORPHINE SULFATE 2 MG/ML SYR IVP ONE (12:30)
[2024-07-31] MEDS: methylPREDNISolone SS 125 MG/2 ML VIAL IVP ONE (12:30)
[2024-07-31 12:41] LABS: INR 0.9 (0.8-1.2); PROTHROMBIN TIME 9.6 secs (10.8-13.4)
[2024-07-31 12:47] LABS: ANION GAP 21.8 (8-16); CALCIUM 8.8 mg/dL (8.5-10.1); CARBON DIOXIDE 21.5 mmol/L (21-32); CREATININE 0.8 mg/dL (0.6-1.3); POTASSIUM 4.3 mmol/L (3.5-5.1)
[2024-07-31 12:51] LABS: FLU A ANTIGEN negative (NEGATIVE); FLU B ANTIGEN negative (NEGATIVE)
[2024-07-31 13:00] LABS: ACETONE, SERUM Small (NEGATIVE)
[2024-07-31] MEDS: INSULIN REGULAR, HUMAN 100 UNIT/ML VIAL IV ONE (14:10)
[2024-07-31] MEDS: MORPHINE SULFATE 4 MG/ML SYR IVP ONE (14:15)
[2024-07-31] MEDS ORDERED: ACETAMINOPHEN 325 MG TAB PO PRN (16:50)
[2024-07-31] MEDS: INSULIN LANTUS 100 UNITS/ML 10 ML VIAL SUBQ SCH (17:13)
[2024-07-31] MEDS: NACL 0.9% 1,000 ML IV SCH (17:21)
[2024-07-31] MEDS ORDERED: AZITHROMYCIN 500 MG INJ VIAL IV ONE (17:27)
[2024-07-31] MEDS: ALBUTEROL 0.083% 2.5 MG/3 ML NEBU INH PRN (17:30)
[2024-07-31] MEDS: AZITHROMYCIN 500 MG in DEXTROSE 5% 250 ML IV SCH (17:39)
[2024-07-31] MEDS ORDERED: methylPREDNISolone SS 40 MG in WATER STERILE 1 ML IV SCH (18:00)
[2024-07-31] MEDS: ONDANSETRON 4 MG/2 ML VIAL IVP PRN (18:07)
[2024-07-31] MEDS ORDERED: IPRATROPIUM 0.02% 0.5 MG/2.5 ML NEBU INH SCH (19:00)
[2024-07-31] MEDS: methylPREDNISolone SS 40 MG/ML VIAL IVP SCH (19:35)
[2024-07-31] MEDS: MORPHINE SULFATE 2 MG/ML SYR IVP PRN (19:36)
[2024-07-31] MEDS: INSULIN LANTUS 100 UNITS/ML 10 ML VIAL SUBQ STA (19:46)
[2024-07-31] MEDS: BLOOD GLUCOSE MONITORING 1 DEV DEV FS SCH (21:00)
[2024-07-31] MEDS ORDERED: methylPREDNISolone SS 40 MG/ML VIAL IVP SCH (21:00)
[2024-07-31] MEDS: INSULIN LISPRO SLIDING SCALE 100 UNITS/ML VIAL SUBQ PRN (22:06)
[2024-07-31] MEDS ORDERED: ONDANSETRON 4 MG/2 ML VIAL IVP PRN (22:55)
[2024-07-31] MEDS: INSULIN LISPRO 100 UNITS/ML VIAL SUBQ SCH (23:04)
[2024-07-31 23:19] LABS: ANION GAP 22.1 (8-16); CARBON DIOXIDE 19.2 mmol/L (21-32); CREATININE 1.4 mg/dL (0.6-1.3); POTASSIUM 4.3 mmol/L (3.5-5.1)
[2024-07-31 23:33] LABS: BLOOD GAS PCO2 25.1 mmHg (32.0-45.0); BLOOD GAS PH 7.343 (7.350-7.450); BLOOD GAS PO2 39.9 mmHg (83.0-108.0)
[2024-07-31 23:34] LABS: BLOOD GAS BASE EXCESS -11.2 mmol/L (-2.0-3.0); BLOOD GAS HCO3 13.3 mmol/L (21.0-28.0)
[2024-07-31 23:36] LABS: BLOOD GAS O2 SAT% 69.2 % (94.0-98.0)
[2024-08-01] VITALS (12 sets, daily range): BP systolic 115–152; BP diastolic 55–89; PULSE 84–101; RESP 18–30; TEMP 97–98.7; O2SAT 93–99
[2024-08-01 07:30] LABS: BASOPHILS % (AUTO) 0.1 % (0.0-2.0); HEMATOCRIT 27.8 % (36-48); HEMOGLOBIN 8.1 g/dL (12.0-16.0); LYMPHOCYTES # (AUTO) 0.5 K/uL (2.5-16.5); LYMPHOCYTES % (AUTO) 3.4 % (20.5-51.1); MEAN CORPUSCULAR HEMOGLOBIN 21 pg (27-31); MEAN CORPUSCULAR HGB CONC 29 g/dL (33-37); MEAN CORPUSCULAR VOLUME 71.2 fL (80-94); MONOCYTES # (AUTO) 0.4 K/uL (0.8-1.0); MONOCYTES % (AUTO) 2.5 % (1.7-9.3); PLATELET COUNT (AUTO) 399 K/uL (140-450); RED CELL DISTRIBUTION WIDTH 20.4 % (11.6-13.7); WHITE BLOOD COUNT (AUTO) 13.8 K/uL (4.8-10.8)
[2024-08-01 08:10] LABS: ANION GAP 14.7 (8-16); CALCIUM 8.5 mg/dL (8.5-10.1); CARBON DIOXIDE 26.6 mmol/L (21-32); POTASSIUM 4.3 mmol/L (3.5-5.1)
[2024-08-01] MEDS: MAG SULF 2000 MG/WATER PREMIX 50 ML IV SCH (10:14)
[2024-08-01] MEDS: BUDESONIDE 0.5 MG/2 ML NEBU INH SCH (11:06)
[2024-08-01] MEDS: AZITHROMYCIN 500 MG in DEXTROSE 5% 250 ML IV SCH (16:24)
[2024-08-01] MEDS: MORPHINE SULFATE 4 MG/ML SYR IVP PRN (16:36)
[2024-08-01] MEDS: methylPREDNISolone SS 40 MG/ML VIAL IVP SCH (20:45)
[2024-08-01] MEDS: DOCUSATE SODIUM 100 MG GELCAP PO SCH (20:48)
[2024-08-01] MEDS: FAMOTIDINE 20 MG TAB PO SCH (20:49)
[2024-08-01] MEDS: ZOLPIDEM 5 MG TAB PO SCH (21:45)
[2024-08-01] MEDS: MEDS-TO-BEDS MC SCH (21:46)
[2024-08-02] VITALS (16 sets, daily range): BP systolic 118–132; BP diastolic 55–69; PULSE 80–115; RESP 18–24; TEMP 96.7–98.8; O2SAT 92–100
[2024-08-02 07:20] LABS: HEMATOCRIT 24.7 % (36-48); HEMOGLOBIN 7.3 g/dL (12.0-16.0); MEAN CORPUSCULAR HEMOGLOBIN 21 pg (27-31); MEAN CORPUSCULAR HGB CONC 30 g/dL (33-37); MEAN CORPUSCULAR VOLUME 70.6 fL (80-94); PLATELET COUNT (AUTO) 319 K/uL (140-450); RED CELL DISTRIBUTION WIDTH 20.5 % (11.6-13.7); WHITE BLOOD COUNT (AUTO) 12.1 K/uL (4.8-10.8)
[2024-08-02 07:26] LABS: MAGNESIUM 1.9 mg/dL (1.8-2.4)
[2024-08-02 07:27] LABS: ANION GAP 14.7 (8-16); CALCIUM 8.1 mg/dL (8.5-10.1); CARBON DIOXIDE 26.2 mmol/L (21-32); CREATININE 0.7 mg/dL (0.6-1.3); POTASSIUM 4.9 mmol/L (3.5-5.1)
[2024-08-02 07:44] LABS: LYMPHOCYTES % (MANUAL) 7 % (20-46)
[2024-08-02 07:46] LABS: ANISOCYTOSIS 1+; HYPOCHROMASIA 1+
[2024-08-02 07:48] LABS: TARGET CELLS FEW
[2024-08-02] MEDS: GABAPENTIN 300 MG CAP PO SCH (09:05)
[2024-08-02] MEDS: FUROSEMIDE 40 MG TAB PO SCH (09:05)
[2024-08-02] MEDS: methylPREDNISolone SS 40 MG/ML VIAL IVP SCH (21:39)
[2024-08-03] VITALS (20 sets, daily range): BP systolic 118–151; BP diastolic 60–90; PULSE 20–126; RESP 16–24; TEMP 96.7–99.4; O2SAT 92–100
[2024-08-03 06:50] LABS: EOSINOPHILS % (AUTO) 0.1 % (0.0-4.0); HEMATOCRIT 24.7 % (36-48); HEMOGLOBIN 7.3 g/dL (12.0-16.0); LYMPHOCYTES # (AUTO) 0.7 K/uL (2.5-16.5); MEAN CORPUSCULAR HEMOGLOBIN 21 pg (27-31); MEAN CORPUSCULAR HGB CONC 30 g/dL (33-37); MEAN CORPUSCULAR VOLUME 70.9 fL (80-94); MONOCYTES # (AUTO) 0.6 K/uL (0.8-1.0); MONOCYTES % (AUTO) 6.3 % (1.7-9.3); NEUTROPHILS # (AUTO) 8.3 K/uL (1.8-7.7); NEUTROPHILS % (AUTO) 86.6 % (42.2-75.2); PLATELET COUNT (AUTO) 285 K/uL (140-450); RED BLOOD CELL COUNT(AUTO) 3.49 MIL/uL (4.20-5.40); RED CELL DISTRIBUTION WIDTH 20.6 % (11.6-13.7); WHITE BLOOD COUNT (AUTO) 9.6 K/uL (4.8-10.8)
[2024-08-03 07:01] LABS: ANION GAP 9.2 (8-16); CALCIUM 8.2 mg/dL (8.5-10.1); CARBON DIOXIDE 31.3 mmol/L (21-32); CREATININE 0.8 mg/dL (0.6-1.3); POTASSIUM 4.5 mmol/L (3.5-5.1)
[2024-08-03 07:20] LABS: MAGNESIUM 1.9 mg/dL (1.8-2.4); PHOSPHORUS 3.7 mg/dL (2.5-4.9)
[2024-08-03] MEDS: FLUCONAZOLE 200 MG/NS PREMIX 100 ML IV ONE ×2 (23:08)
[2024-08-04] VITALS (16 sets, daily range): BP systolic 113–145; BP diastolic 53–84; PULSE 64–114; RESP 18–26; TEMP 97–98.3; O2SAT 94–99
[2024-08-04 06:52] LABS: BASOPHILS % (AUTO) 0.1 % (0.0-2.0); EOSINOPHILS % (AUTO) 0.1 % (0.0-4.0); HEMATOCRIT 28.8 % (36-48); HEMOGLOBIN 8.6 g/dL (12.0-16.0); LYMPHOCYTES # (AUTO) 0.6 K/uL (2.5-16.5); LYMPHOCYTES % (AUTO) 7.4 % (20.5-51.1); MEAN CORPUSCULAR HEMOGLOBIN 21 pg (27-31); MEAN CORPUSCULAR HGB CONC 30 g/dL (33-37); MONOCYTES # (AUTO) 0.3 K/uL (0.8-1.0); MONOCYTES % (AUTO) 3.7 % (1.7-9.3); NEUTROPHILS # (AUTO) 7.1 K/uL (1.8-7.7); NEUTROPHILS % (AUTO) 88.7 % (42.2-75.2); PLATELET COUNT (AUTO) 309 K/uL (140-450); RED BLOOD CELL COUNT(AUTO) 4.05 MIL/uL (4.20-5.40); RED CELL DISTRIBUTION WIDTH 20.8 % (11.6-13.7)
[2024-08-04 07:06] LABS: MAGNESIUM 1.7 mg/dL (1.8-2.4)
[2024-08-04 07:18] LABS: ANION GAP 9.3 (8-16); CARBON DIOXIDE 34.6 mmol/L (21-32); CREATININE 0.7 mg/dL (0.6-1.3)
[2024-08-04 07:28] LABS: POTASSIUM 5.9 mmol/L (3.5-5.1)
[2024-08-04] MEDS: FLUCONAZOLE 100 MG/NS PREMIX 50 ML IV SCH (08:25)
[2024-08-04] MEDS: SODIUM POLYSTYRENE 15 GM/60 ML UDBTL PO SCH (12:37)
[2024-08-04] MEDS: FERROUS GLUCONATE 324 MG TAB PO SCH (17:02)
[2024-08-04] MEDS: HYDROcodone/APAP 5/325 MG 1 TAB TAB PO PRN (17:05)
[2024-08-04] MEDS: APIXABAN 2.5 MG TAB PO SCH (20:44)
[2024-08-05] VITALS (14 sets, daily range): BP systolic 116–168; BP diastolic 58–84; PULSE 63–114; RESP 18–22; TEMP 96.4–98.3; O2SAT 84–100
[2024-08-05 06:56] LABS: ANION GAP 11.3 (8-16); CALCIUM 8.9 mg/dL (8.5-10.1); CREATININE 0.7 mg/dL (0.6-1.3); PHOSPHORUS 4.9 mg/dL (2.5-4.9); POTASSIUM 5.3 mmol/L (3.5-5.1)
[2024-08-05 06:59] LABS: BASOPHILS % (AUTO) 0.1 % (0.0-2.0); EOSINOPHILS % (AUTO) 0.1 % (0.0-4.0); HEMATOCRIT 28.5 % (36-48); HEMOGLOBIN 8.1 g/dL (12.0-16.0); LYMPHOCYTES % (AUTO) 8.1 % (20.5-51.1); MEAN CORPUSCULAR HEMOGLOBIN 21 pg (27-31); MEAN CORPUSCULAR HGB CONC 29 g/dL (33-37); MEAN CORPUSCULAR VOLUME 72.1 fL (80-94); MONOCYTES # (AUTO) 0.7 K/uL (0.8-1.0); MONOCYTES % (AUTO) 5.7 % (1.7-9.3); NEUTROPHILS # (AUTO) 10.5 K/uL (1.8-7.7); PLATELET COUNT (AUTO) 309 K/uL (140-450); RED BLOOD CELL COUNT(AUTO) 3.96 MIL/uL (4.20-5.40); RED CELL DISTRIBUTION WIDTH 21.2 % (11.6-13.7); WHITE BLOOD COUNT (AUTO) 12.3 K/uL (4.8-10.8)
[2024-08-05] MEDS: DEXTROSE 50% 50 ML SYR IVP PRN (08:21)
[2024-08-05] MEDS: SODIUM FERRIC GLUCONATE 125 MG in NACL 0.9% 100 ML IV SCH (13:29)
[2024-08-05] MEDS: MORPHINE SULFATE 4 MG/ML SYR IVP PRN (17:12)
[2024-08-05] MEDS: PANTOPRAZOLE 40 MG INJ VIAL IVP SCH (21:50)
[2024-08-06] VITALS (13 sets, daily range): BP systolic 107–154; BP diastolic 60–79; PULSE 72–106; RESP 17–20; TEMP 97.4–98.2; O2SAT 84–100
[2024-08-06 06:41] LABS: BASOPHILS % (AUTO) 0.2 % (0.0-2.0); EOSINOPHILS % (AUTO) 0.1 % (0.0-4.0); HEMATOCRIT 30.4 % (36-48); HEMOGLOBIN 8.7 g/dL (12.0-16.0); LYMPHOCYTES # (AUTO) 0.8 K/uL (2.5-16.5); LYMPHOCYTES % (AUTO) 6.2 % (20.5-51.1); MEAN CORPUSCULAR HEMOGLOBIN 21 pg (27-31); MEAN CORPUSCULAR HGB CONC 29 g/dL (33-37); MEAN CORPUSCULAR VOLUME 71.8 fL (80-94); MONOCYTES # (AUTO) 0.5 K/uL (0.8-1.0); MONOCYTES % (AUTO) 3.6 % (1.7-9.3); NEUTROPHILS # (AUTO) 11.7 K/uL (1.8-7.7); NEUTROPHILS % (AUTO) 89.9 % (42.2-75.2); PLATELET COUNT (AUTO) 380 K/uL (140-450); RED BLOOD CELL COUNT(AUTO) 4.24 MIL/uL (4.20-5.40); RED CELL DISTRIBUTION WIDTH 21.8 % (11.6-13.7); WHITE BLOOD COUNT (AUTO) 13.1 K/uL (4.8-10.8)
[2024-08-06 07:22] LABS: ANION GAP 11.3 (8-16); CALCIUM 9.2 mg/dL (8.5-10.1); CREATININE 0.8 mg/dL (0.6-1.3); POTASSIUM 5.3 mmol/L (3.5-5.1)
[2024-08-06 07:28] LABS: MAGNESIUM 1.9 mg/dL (1.8-2.4); PHOSPHORUS 4.8 mg/dL (2.5-4.9)
[2024-08-06] MEDS: SODIUM ZIRCONIUM CYCLOSILICATE 10 GM POWD.PACK PO SCH (10:50)
[2024-08-07] VITALS (14 sets, daily range): BP systolic 116–149; BP diastolic 53–68; PULSE 72–109; RESP 18–24; TEMP 97.5–98.2; O2SAT 90–100
[2024-08-07 06:47] LABS: LYMPHOCYTES # (AUTO) 0.6 K/uL (2.5-16.5); LYMPHOCYTES % (AUTO) 5.1 % (20.5-51.1); MEAN CORPUSCULAR HEMOGLOBIN 21 pg (27-31); MEAN CORPUSCULAR HGB CONC 29 g/dL (33-37); MEAN CORPUSCULAR VOLUME 73.1 fL (80-94); MONOCYTES # (AUTO) 0.6 K/uL (0.8-1.0); MONOCYTES % (AUTO) 5.2 % (1.7-9.3); NEUTROPHILS # (AUTO) 10.7 K/uL (1.8-7.7); NEUTROPHILS % (AUTO) 89.7 % (42.2-75.2); PLATELET COUNT (AUTO) 373 K/uL (140-450); RED BLOOD CELL COUNT(AUTO) 3.83 MIL/uL (4.20-5.40); RED CELL DISTRIBUTION WIDTH 21.3 % (11.6-13.7); WHITE BLOOD COUNT (AUTO) 11.9 K/uL (4.8-10.8)
[2024-08-07 06:54] LABS: ANION GAP 10.6 (8-16); CALCIUM 8.5 mg/dL (8.5-10.1); CARBON DIOXIDE 36.6 mmol/L (21-32); CREATININE 0.7 mg/dL (0.6-1.3); POTASSIUM 5.2 mmol/L (3.5-5.1)
[2024-08-07 07:25] LABS: MAGNESIUM 2.1 mg/dL (1.8-2.4); PHOSPHORUS 4.7 mg/dL (2.5-4.9)
[2024-08-07] MEDS: ACETYLCYSTEINE 20% (200 MG/ML) 200 MG/ML VIAL INH SCH ×2 (13:00→18:57)
[2024-08-07] MEDS ORDERED: SODIUM ZIRCONIUM CYCLOSILICATE 10 GM POWD.PACK PO PRN (13:55)
[2024-08-08] VITALS (14 sets, daily range): BP systolic 117–154; BP diastolic 58–80; PULSE 82–100; RESP 18–22; TEMP 97–97.8; O2SAT 90–100
[2024-08-08 06:59] LABS: BASOPHILS % (AUTO) 0.1 % (0.0-2.0); EOSINOPHILS % (AUTO) 0.1 % (0.0-4.0); HEMOGLOBIN 7.4 g/dL (12.0-16.0); LYMPHOCYTES % (AUTO) 5.9 % (20.5-51.1); MEAN CORPUSCULAR HEMOGLOBIN 21 pg (27-31); MEAN CORPUSCULAR HGB CONC 28 g/dL (33-37); MEAN CORPUSCULAR VOLUME 73.5 fL (80-94); MONOCYTES # (AUTO) 1.1 K/uL (0.8-1.0); MONOCYTES % (AUTO) 6.4 % (1.7-9.3); NEUTROPHILS # (AUTO) 15.4 K/uL (1.8-7.7); NEUTROPHILS % (AUTO) 87.5 % (42.2-75.2); PLATELET COUNT (AUTO) 386 K/uL (140-450); RED BLOOD CELL COUNT(AUTO) 3.54 MIL/uL (4.20-5.40); RED CELL DISTRIBUTION WIDTH 21.2 % (11.6-13.7); WHITE BLOOD COUNT (AUTO) 17.6 K/uL (4.8-10.8)
[2024-08-08 07:42] LABS: ANION GAP 7.2 (8-16); CALCIUM 8.3 mg/dL (8.5-10.1); CARBON DIOXIDE 37.2 mmol/L (21-32); CREATININE 0.6 mg/dL (0.6-1.3); POTASSIUM 4.4 mmol/L (3.5-5.1)
[2024-08-08 07:45] LABS: MAGNESIUM 1.8 mg/dL (1.8-2.4); PHOSPHORUS 4.1 mg/dL (2.5-4.9)
[2024-08-08] MEDS: INSULIN LANTUS 100 UNITS/ML 10 ML VIAL SUBQ SCH (21:34)
[2024-08-09] VITALS (18 sets, daily range): BP systolic 105–141; BP diastolic 49–73; PULSE 80–105; RESP 16–22; TEMP 97.4–98.8; O2SAT 92–100
[2024-08-09 09:14] LABS: HEMATOCRIT 27.7 % (36-48); HEMOGLOBIN 7.7 g/dL (12.0-16.0); LYMPHOCYTES # (AUTO) 0.6 K/uL (2.5-16.5); LYMPHOCYTES % (AUTO) 3.4 % (20.5-51.1); MEAN CORPUSCULAR HEMOGLOBIN 21 pg (27-31); MEAN CORPUSCULAR HGB CONC 28 g/dL (33-37); MEAN CORPUSCULAR VOLUME 75.6 fL (80-94); MONOCYTES # (AUTO) 0.8 K/uL (0.8-1.0); MONOCYTES % (AUTO) 4.5 % (1.7-9.3); NEUTROPHILS % (AUTO) 92.1 % (42.2-75.2); PLATELET COUNT (AUTO) 431 K/uL (140-450); RED BLOOD CELL COUNT(AUTO) 3.66 MIL/uL (4.20-5.40); RED CELL DISTRIBUTION WIDTH 21.7 % (11.6-13.7); WHITE BLOOD COUNT (AUTO) 17.4 K/uL (4.8-10.8)
[2024-08-09 09:42] LABS: ANION GAP 5.3 (8-16); CALCIUM 8.3 mg/dL (8.5-10.1); CARBON DIOXIDE 37.9 mmol/L (21-32); CREATININE 0.8 mg/dL (0.6-1.3); POTASSIUM 5.2 mmol/L (3.5-5.1)
[2024-08-09] MEDS: INSULIN LANTUS 100 UNITS/ML 10 ML VIAL SUBQ SCH (10:21)
[2024-08-09] MEDS: ACETYLCYSTEINE 10% (100 MG/ML) 100 MG/ML VIAL INH SCH (10:59)
[2024-08-09] MEDS: ZOLPIDEM 5 MG TAB PO SCH (21:30)
[2024-08-10] VITALS (13 sets, daily range): BP systolic 108–135; BP diastolic 49–75; PULSE 72–126; RESP 17–72; TEMP 97.7–98.9; O2SAT 90–98
[2024-08-10 07:19] LABS: BASOPHILS % (AUTO) 0.1 % (0.0-2.0); EOSINOPHILS % (AUTO) 0.1 % (0.0-4.0); HEMATOCRIT 29.4 % (36-48); HEMOGLOBIN 8.5 g/dL (12.0-16.0); LYMPHOCYTES % (AUTO) 5.3 % (20.5-51.1); MEAN CORPUSCULAR HEMOGLOBIN 22 pg (27-31); MEAN CORPUSCULAR HGB CONC 29 g/dL (33-37); MONOCYTES # (AUTO) 0.9 K/uL (0.8-1.0); MONOCYTES % (AUTO) 4.8 % (1.7-9.3); NEUTROPHILS # (AUTO) 16.8 K/uL (1.8-7.7); NEUTROPHILS % (AUTO) 89.7 % (42.2-75.2); PLATELET COUNT (AUTO) 468 K/uL (140-450); RED BLOOD CELL COUNT(AUTO) 3.92 MIL/uL (4.20-5.40); WHITE BLOOD COUNT (AUTO) 18.7 K/uL (4.8-10.8)
[2024-08-10 07:38] LABS: ANION GAP 5.2 (8-16); CALCIUM 8.8 mg/dL (8.5-10.1); CARBON DIOXIDE 38.9 mmol/L (21-32); CREATININE 0.7 mg/dL (0.6-1.3); POTASSIUM 5.1 mmol/L (3.5-5.1)
[2024-08-10] MEDS: MONTELUKAST SODIUM 10 MG TAB PO SCH (10:05)
[2024-08-10] MEDS: guaiFENesin 600 MG TABER PO SCH (21:44)
[2024-08-11] VITALS (15 sets, daily range): BP systolic 109–138; BP diastolic 58–89; PULSE 84–112; RESP 16–22; TEMP 96.5–98; O2SAT 90–99
[2024-08-11 06:54] LABS: BASOPHILS % (AUTO) 0.1 % (0.0-2.0); HEMATOCRIT 29.6 % (36-48); HEMOGLOBIN 8.5 g/dL (12.0-16.0); LYMPHOCYTES # (AUTO) 0.5 K/uL (2.5-16.5); LYMPHOCYTES % (AUTO) 2.8 % (20.5-51.1); MEAN CORPUSCULAR HEMOGLOBIN 22 pg (27-31); MEAN CORPUSCULAR HGB CONC 29 g/dL (33-37); MEAN CORPUSCULAR VOLUME 76.6 fL (80-94); MONOCYTES # (AUTO) 0.6 K/uL (0.8-1.0); MONOCYTES % (AUTO) 3.1 % (1.7-9.3); NEUTROPHILS # (AUTO) 17.6 K/uL (1.8-7.7); PLATELET COUNT (AUTO) 480 K/uL (140-450); RED BLOOD CELL COUNT(AUTO) 3.87 MIL/uL (4.20-5.40); RED CELL DISTRIBUTION WIDTH 22.2 % (11.6-13.7); WHITE BLOOD COUNT (AUTO) 18.7 K/uL (4.8-10.8)
[2024-08-11 07:52] LABS: CREATININE 0.9 mg/dL (0.6-1.3)
[2024-08-11] MEDS: INSULIN LISPRO 100 UNITS/ML VIAL SUBQ SCH (09:19)
[2024-08-11] MEDS: SODIUM ZIRCONIUM CYCLOSILICATE 10 GM POWD.PACK PO SCH (09:56)
[2024-08-11] MEDS: INSULIN LANTUS 100 UNITS/ML 10 ML VIAL SUBQ SCH (20:29)
[2024-08-12] VITALS (13 sets, daily range): BP systolic 113–135; BP diastolic 50–79; PULSE 82–101; RESP 16–20; TEMP 97–98.8; O2SAT 89–100
[2024-08-12 06:54] LABS: BASOPHILS % (AUTO) 0.1 % (0.0-2.0); HEMATOCRIT 28.3 % (36-48); HEMOGLOBIN 8.4 g/dL (12.0-16.0); LYMPHOCYTES # (AUTO) 0.8 K/uL (2.5-16.5); LYMPHOCYTES % (AUTO) 5.6 % (20.5-51.1); MEAN CORPUSCULAR HEMOGLOBIN 23 pg (27-31); MEAN CORPUSCULAR HGB CONC 30 g/dL (33-37); MEAN CORPUSCULAR VOLUME 77.1 fL (80-94); MONOCYTES # (AUTO) 0.6 K/uL (0.8-1.0); MONOCYTES % (AUTO) 4.1 % (1.7-9.3); NEUTROPHILS # (AUTO) 13.2 K/uL (1.8-7.7); NEUTROPHILS % (AUTO) 90.2 % (42.2-75.2); PLATELET COUNT (AUTO) 484 K/uL (140-450); RED BLOOD CELL COUNT(AUTO) 3.67 MIL/uL (4.20-5.40); RED CELL DISTRIBUTION WIDTH 22.6 % (11.6-13.7); WHITE BLOOD COUNT (AUTO) 14.6 K/uL (4.8-10.8)
[2024-08-12 07:05] LABS: ANION GAP 8.4 (8-16); CALCIUM 8.6 mg/dL (8.5-10.1); CARBON DIOXIDE 35.7 mmol/L (21-32); CREATININE 0.7 mg/dL (0.6-1.3)
[2024-08-12 07:28] LABS: POTASSIUM 6.1 mmol/L (3.5-5.1)
[2024-08-12] MEDS: NACL 0.9% 1,000 ML IV SCH (08:05)
[2024-08-12] MEDS: SODIUM ZIRCONIUM CYCLOSILICATE 10 GM POWD.PACK PO SCH ×2 (09:02→15:11)
[2024-08-12] MEDS: INSULIN LISPRO 100 UNITS/ML VIAL SUBQ SCH (12:00)
[2024-08-13] VITALS (7 sets, daily range): BP systolic 136–156; BP diastolic 60–70; PULSE 84–98; RESP 18–26; TEMP 96.7–97.9; O2SAT 93–99
[2024-08-13 07:17] LABS: BASOPHILS % (AUTO) 0.1 % (0.0-2.0); HEMATOCRIT 33.8 % (36-48); HEMOGLOBIN 9.7 g/dL (12.0-16.0); LYMPHOCYTES # (AUTO) 0.7 K/uL (2.5-16.5); LYMPHOCYTES % (AUTO) 5.1 % (20.5-51.1); MEAN CORPUSCULAR HEMOGLOBIN 23 pg (27-31); MEAN CORPUSCULAR HGB CONC 29 g/dL (33-37); MEAN CORPUSCULAR VOLUME 78.9 fL (80-94); MONOCYTES # (AUTO) 0.7 K/uL (0.8-1.0); MONOCYTES % (AUTO) 5.4 % (1.7-9.3); NEUTROPHILS # (AUTO) 11.7 K/uL (1.8-7.7); NEUTROPHILS % (AUTO) 89.4 % (42.2-75.2); PLATELET COUNT (AUTO) 537 K/uL (140-450); RED BLOOD CELL COUNT(AUTO) 4.29 MIL/uL (4.20-5.40); RED CELL DISTRIBUTION WIDTH 24.4 % (11.6-13.7); WHITE BLOOD COUNT (AUTO) 13.1 K/uL (4.8-10.8)
[2024-08-13 08:01] LABS: ANION GAP 11.1 (8-16); CALCIUM 9.2 mg/dL (8.5-10.1); CARBON DIOXIDE 34.5 mmol/L (21-32); CREATININE 0.8 mg/dL (0.6-1.3); POTASSIUM 4.6 mmol/L (3.5-5.1)
[2024-08-13] MEDS: MORPHINE SULFATE 4 MG/ML SYR IVP PRN (08:32)
[2024-08-13] MEDS ORDERED: PRED20TA5 PO (11:37)
[2024-08-13] MEDS ORDERED: FURO-570 PO (11:37)
[2024-08-13] MEDS ORDERED: FLUC100T PO (11:37)
[2024-08-13] MEDS ORDERED: PANT40EC PO (11:37)
== END 2024-08-13 13:40 | disposition home or self-care (01) | DRG 193 ==
LOC: MED 10:36 → MTU 16:53
PROVIDERS: ADMIT Hospitalist; ATTEND Hospitalist
DX: J18.0 Bronchopneumonia, unspecified organism (principal); J96.21 Acute and chronic respiratory failure with hypoxia; N17.0 Acute kidney failure with tubular necrosis; J44.1 Chronic obstructive pulmonary disease with (acute) exacerbation; Z68.1 Body mass index [BMI] 19.9 or less, adult; E46 Unspecified protein-calorie malnutrition; B37.81 Candidal esophagitis; R65.10 Systemic inflammatory response syndrome (SIRS) of non-infectious origin without acute organ dysfunction; J44.0 Chronic obstructive pulmonary disease with (acute) lower respiratory infection; J43.9 Emphysema, unspecified; D50.0 Iron deficiency anemia secondary to blood loss (chronic); K21.9 Gastro-esophageal reflux disease without esophagitis; E87.5 Hyperkalemia; K44.9 Diaphragmatic hernia without obstruction or gangrene; Z86.718 Personal history of other venous thrombosis and embolism; Z72.0 Tobacco use; Z88.0 Allergy status to penicillin; Z88.8 Allergy status to other drugs, medicaments and biological substances; Z79.899 Other long term (current) drug therapy; Z79.51 Long term (current) use of inhaled steroids; Z79.82 Long term (current) use of aspirin; Z88.2 Allergy status to sulfonamides
CPT/HCPCS: 36415; 36600; 70360; 71045; 71250; 74220; 80048; 82009; 82272; 82728; 82785; 82803; 82948; 83540; 83735; 83880; 84100; 84484; 85025; 85610; 85730; 87081; 92526; 92610; 93005; 93971; 94640; 96374; 96375; 96376; 99291; J0456; J1450; J1815; J2270; J2405; J2470; J2916; J2919; J2920; J3475; J7060; J7608; J7613; J7626; Q0092

== ENCOUNTER 2024-08-20 09:33 | Observation (INO) | payer OTHER ==
[2024-08-20] VITALS (8 sets, daily range): BP systolic 104–136; BP diastolic 56–69; PULSE 92–97; RESP 18–26; TEMP 97.9–98.9; O2SAT 92–98
[~2024-08-20] VITALS: Ht 157.5 cm; Wt 56.7 kg
[~2024-08-20 09:33] MED LIST changes: -ATRMDI INH; -FAMO40TA12 PO; +FLUC100T PO; -GABA300C PO; +PANT40EC PO; +PRED20TA5 PO; -PRED20TA6 PO; -PRED50TA2 PO
[2024-08-20] MEDS: ALBUTEROL SULFATE/IPRATROPIU 3 ML SOL IH ONE (09:34)
[2024-08-20 10:14] LABS: BASOPHILS % (AUTO) 0.3 % (0.0-2.0); EOSINOPHILS % (AUTO) 0.3 % (0.0-4.0); HEMATOCRIT 38.8 % (36-48); HEMOGLOBIN 11.2 g/dL (12.0-16.0); LYMPHOCYTES # (AUTO) 0.5 K/uL (2.5-16.5); LYMPHOCYTES % (AUTO) 7.3 % (20.5-51.1); MEAN CORPUSCULAR HEMOGLOBIN 24 pg (27-31); MEAN CORPUSCULAR HGB CONC 29 g/dL (33-37); MEAN CORPUSCULAR VOLUME 83.9 fL (80-94); MONOCYTES # (AUTO) 0.3 K/uL (0.8-1.0); MONOCYTES % (AUTO) 4.5 % (1.7-9.3); NEUTROPHILS # (AUTO) 6.2 K/uL (1.8-7.7); NEUTROPHILS % (AUTO) 87.6 % (42.2-75.2); PLATELET COUNT (AUTO) 482 K/uL (140-450); RED BLOOD CELL COUNT(AUTO) 4.62 MIL/uL (4.20-5.40); RED CELL DISTRIBUTION WIDTH 33.2 % (11.6-13.7); WHITE BLOOD COUNT (AUTO) 7.1 K/uL (4.8-10.8)
[2024-08-20 10:41] LABS: ALANINE AMINOTRANSFERASE 143 U/L (12-78); ALBUMIN 2.5 g/dL (3.4-5.0); ALKALINE PHOSPHATASE 681 U/L (50-136); ASPARTATE AMINOTRANSFERASE 49 U/L (15-37); BILIRUBIN,DIRECT 0.1 mg/dL (0.0-0.3); TOTAL BILIRUBIN 0.5 mg/dL (0.0-1.0)
[2024-08-20 10:58] LABS: ANION GAP 23.9 (8-16); CARBON DIOXIDE 24.3 mmol/L (21-32); CREATININE 1.1 mg/dL (0.6-1.3)
[2024-08-20] MEDS ORDERED: AZITHROMYCIN 500 MG INJ VIAL IV ONE (11:09)
[2024-08-20] MEDS ORDERED: cefTRIAXone 1,000 MG VIAL ONE (11:09)
[2024-08-20 11:18] LABS: CALCIUM 8.5 mg/dL (8.5-10.1); POTASSIUM 5.2 mmol/L (3.5-5.1)
[2024-08-20] MEDS: AZITHROMYCIN 500 MG in DEXTROSE 5% 250 ML IV ONE (11:50)
[2024-08-20] MEDS: INSULIN REGULAR, HUMAN 100 UNIT/ML VIAL IVP ONE (11:59)
[2024-08-20] MEDS: MORPHINE SULFATE 4 MG/ML SYR IVP ONE (12:18)
[2024-08-20] MEDS ORDERED: ALBUTEROL SULFATE/IPRATROPIU 3 ML SOL IH PRN (12:20)
[2024-08-20] MEDS ORDERED: LORazepam 2 MG/ML VIAL IVP PRN (12:20)
[2024-08-20] MEDS ORDERED: DEXTROSE 50% 50 ML SYR IVP PRN (12:20)
[2024-08-20] MEDS ORDERED: ONDANSETRON 4 MG/2 ML VIAL IVP PRN (12:20)
[2024-08-20] MEDS ORDERED: ACETAMINOPHEN 325 MG TAB PO PRN (12:20)
[2024-08-20] MEDS ORDERED: ALBUTEROL 0.083% 2.5 MG/3 ML NEBU INH PRN (12:20)
[2024-08-20] MEDS ORDERED: HYDROcodone/APAP 5/325 MG 1 TAB TAB PO PRN (12:20)
[2024-08-20] MEDS ORDERED: FLUTICASONE NASAL 50 MCG/ACTUATION 16 GM BTL NS SCH (12:23)
[2024-08-20] MEDS: ALBUTEROL SULFATE/IPRATROPIU 3 ML SOL IH SCH (15:23)
[2024-08-20] MEDS: ACETYLCYSTEINE 20% (200 MG/ML) 200 MG/ML VIAL INH SCH (15:24)
[2024-08-20] MEDS: BLOOD GLUCOSE MONITORING 1 DEV DEV FS SCH (16:30)
[2024-08-20] MEDS: MORPHINE SULFATE 4 MG/ML SYR IVP PRN (17:36)
[2024-08-20] MEDS: INSULIN LISPRO SLIDING SCALE 100 UNITS/ML VIAL SUBQ PRN (17:39)
[2024-08-20] MEDS: BUDESONIDE 0.5 MG/2 ML NEBU INH SCH (19:09)
[2024-08-20] MEDS: APIXABAN 2.5 MG TAB PO SCH (20:38)
[2024-08-21] MEDS ORDERED: FLUCONAZOLE 100 MG TAB PO SCH (09:00)
[2024-08-21] MEDS ORDERED: ENOXAPARIN 40 MG/0.4 ML SYR SUBQ SCH (09:00)
[2024-08-21] MEDS ORDERED: ECOTRIN 81 MG TABEC PO SCH (09:00)
[2024-08-21] MEDS ORDERED: AZITHROMYCIN 500 MG in DEXTROSE 5% 250 ML IV SCH (12:20)
== END 2024-08-20 23:59 | disposition home or self-care (01) ==
LOC: MED 09:33 → MTU 12:23
PROVIDERS: ADMIT Hospitalist; ATTEND Hospitalist
DX: R06.02 Shortness of breath (principal); R60.0 Localized edema; J45.909 Unspecified asthma, uncomplicated; I48.91 Unspecified atrial fibrillation; E11.10 Type 2 diabetes mellitus with ketoacidosis without coma; K21.9 Gastro-esophageal reflux disease without esophagitis; I11.0 Hypertensive heart disease with heart failure; I50.9 Heart failure, unspecified; Z88.0 Allergy status to penicillin; Z88.5 Allergy status to narcotic agent; Z88.8 Allergy status to other drugs, medicaments and biological substances; Z79.899 Other long term (current) drug therapy
CPT/HCPCS: 36415; 71045; 80048; 80076; 82803; 82948; 83880; 84484; 85025; 87081; 94640; 96365; 96366; 96372; 96375; 96376; 99284; G0378; J0456; J0696; J1815; J2270; J7060; J7608; J7626